=== PATIENT | male | born 1945 | race Caucasian/White ===

== ENCOUNTER 2016-08-26 18:50 | Emergency (ER) | payer MEDICARE, BC ==
--- NOTE | 2016-08-26 19:31 | EDM.PDOC ---
ED HPI GENERAL MEDICAL PROBLEM - General Time Seen by Provider: 08/26/16 19:15 Source of Information: Reports: Patient History Limitations: Reports: No limitations - History of Present Illness INITIAL COMMENTS - FREE TEXT/NARRATIVE: Pt claims that he has been having headache since today morning. Headache is all over the abdomen, has not got better. Tried some tylenol and tramadol. Mild nausea. also he claims he has been having midback pain since today morning. pain is dull achy type. According to patient he has cystoscopy done last and was started on flomax. Pt claims that he has some discomfort in the penile urethra which is better then the day of procedure.No dysuria or difficulty with urination. No fever or chills. No vomiting. - Related Data Allergies Allergy/AdvReac Type Severity Reaction Status Date / Time nifedipine [From Procardia] AdvReac Mild Constipatio Verified 07/20/16 22:08 n Home Meds: Home Meds [place]-3/DHA/Epa/Fish Oil [Fish Oil Dr 500 mg Softgel] 1,000 mg PO DAILY [History] Aspirin 81 mg PO DAILY 05/26/15 [History] Insulin Aspart [Novolog Flexpen] 6 unit SQ ASDIRECTED 05/26/15 [History] Insulin Detemir [Levemir Flextouch] 25 unit SQ BID 05/26/15 [History] Omeprazole 40 mg PO ACBREAKFAST 05/26/15 [History] atorvaSTATin [Lipitor] 20 mg PO BEDTIME 05/26/15 [History] metFORMIN HCl [Metformin HCl] 1,000 mg PO BIDAC 10/12/15 [History] Cyclobenzaprine [Flexeril] 10 mg PO TID PRN 12/13/15 [History] Polyethylene Glycol 3350 [MiraLAX] 17 gm PO DAILY 12/13/15 [History] oxyCODONE HCl/Acetaminophen [oxyCODONE-Acetaminophen 5-325] 7.5 mg PO ASDIRECTED PRN 12/30/15 [History] Metoclopramide HCl 10 mg PO DAILY 02/23/16 [History] Metoprolol Succinate [Toprol XL] 25 mg PO DAILY 05/25/16 [History] Tamsulosin [Tamsulosin 24 Hr] 2 cap PO DAILY 07/20/16 [History] Past Medical History - Past Health History Medical/Surgical History: Denies Medical/Surgical History HEENT History: Reports: Cataract Cardiovascular History: Reports: High cholesterol, Hypertension Other Cardiovascular History: Ablation in July, Respiratory History: Reports: PE, Pneumonia, recurrent, Sleep apnea Other Respiratory History: wears a cpap at night with oxygen at 5 LPM/[place] Gastrointestinal History: Reports: Bowel obstruction, Chronic constipation, GERD , Other (see below) Other Gastrointestinal History: duodenal ulcer Genitourinary History: Reports: Renal calculus Musculoskeletal History: Reports: Back pain, chronic Other Musculoskeletal History: Neck pain causing migraines Neurological History: Reports: Migraines Other Neuro History: Patient is scheduled to have a vertebrae in neck fused very soon. Surgeon, hopes this will resolve some or all of headaches. Psychiatric History: Reports: Depression, Emotional problems Endocrine/Metabolic History: Reports: Diabetes, type II, Obesity/BMI 30+ Hematologic History: Reports: B12 deficiency, Blood transfusion(s) Oncologic (Cancer) History: Reports: None Dermatologic History: Reports: Other (see below) Other Dermatologic History: Had pre-cancer lesion removed to R arm. Has lesion to L wrist. - Infectious Disease History Infectious Disease History: Reports: Chicken pox, Measles, Mumps, Rubella - Past Surgical History HEENT Surgical History: Reports: Tonsillectomy Other HEENT Surgeries/Procedures: C3 and C4 fusion- 2014 Cardiovascular Surgical History: Reports: Cardiac Ablation Other GI Surgeries/Procedures: Exploratory laparotomy. Male Surgical History: Reports: Kidney stone extraction, Lithotripsy ([facility]) Neurological Surgical History: Reports: C-Spine Musculoskeletal Surgical History: Reports: Knee replacement Other Musculoskeletal Surgeries/Procedures:: neck surgery C3 and C4 on [id number] Social & Family History - Family History Family Medical History: Noncontributory HEENT: Reports: Cataract Cardiac: Reports: NM Respiratory: Reports: COPD GI: Reports: None : Reports: None Endocrine/Metabolic: Reports: Diabetes, type II Oncologic: Reports: Brain, Colon, Lung - Tobacco Use Smoking Status *Q: Never Smoker Used Tobacco, but Quit: No Second Hand Smoke Exposure: No - Caffeine Use Caffeine Use: Reports: Soda - Alcohol Use Days Per Week of Alcohol Use: 0 - Recreational Drug Use Recreational Drug Use: No - Living Situation & Occupation Living situation: Reports: Occupation: unemployed ED ROS GENERAL - Review of Systems Review Of Systems: See Below Constitutional: Denies: fever, chills, night sweats, diaphoresis HEENT: Denies: Rhinitis, Sinus problem, Throat pain, Throat swelling Respiratory: Denies: Shortness of Breath, Wheezing, Sputum Cardiovascular: Denies: Chest pain, Lightheadedness GI/Abdominal: Reports: Constipation, Nausea. Denies: Abdominal pain, Diarrhea, Vomiting : Reports: flank pain, frequency. Denies: dysuria Musculoskeletal: Denies: joint pain, joint swelling Skin: Denies: jaundice, pruritis, rash Neurological: Denies: Confusion, Dizziness ED EXAM, GENERAL - Physical Exam Exam: See Below Exam Limited By: No limitations General Appearance: alert, WD/WN, no apparent distress Eye Exam: bilateral eye: EOMI, PERRL Ears: normal external exam, normal canal, hearing grossly normal, normal TMs Ear Exam: bilateral ear: auricle normal, canal normal, TM normal Nose: normal inspection, normal mucosa, no blood Throat/Mouth: Normal inspection, Normal lips, Normal teeth, Normal gums, Normal oropharynx, Normal voice, No airway compromise Head: atraumatic, normocephalic Neck: normal inspection, supple, non-tender, full range of motion Respiratory/Chest: no respiratory distress, lungs clear, normal breath sounds, no accessory muscle use, chest non-tender Cardiovascular: normal peripheral pulses, regular rate, rhythm, no edema, no gallop, no JVD, no murmur, no rub GI/Abdominal: normal bowel sounds, soft, non tender, no organomegaly, no distention, no abnormal bruit, no mass Back Exam: normal inspection, full range of motion. No: CVA tenderness (R), CVA tenderness (L) Extremities: normal inspection, normal range of motion, non-tender, normal capillary refill, no pedal edema Neurological: alert, oriented, CN II-XII intact, normal cognition, normal gait, normal reflexes, no motor/sensory deficits Course - Vital Signs Text/Narrative:: Pt's clinical exam appears normal. he does get recurrent headache and has been having one of those episodes since today morning. he did receive toradol 30mg IM. His CBC is normal and his UA appears normal other than elevated specific gravity. He does not have UTI , but he has been running fever, hence I have empirically started him on cipro 500mg twice daily for next 5 days. advised plenty of fluids daily. return to emergency room if symptoms worsen, other forman followup in clinic with his primary care provider this week. - Orders/Labs/Meds Orders: Active Orders 24 hr Category Date Time Status Ketorolac [Toradol] Med 08/26/16 19:56 Once 30 mg IM ONETIME ONE Labs: Laboratory Tests 08/26/16 08/26/16 Range/Units 19:25 19:25 WBC 10.7 D (4.0-11.0) K/uL RBC 5.21 (4.50-6.50) M/uL Hgb 15.0 (13.0-18.0) g/dL Hct 43.2 (40.0-54.0) % MCV 83 (76-96) fL MCH 28.8 (27.0-32.0) pg MCHC 34.7 (31.0-35.0) g/dL RDW 13.5 (11.0-16.0) % Plt Count 135 L (150-400) K/uL MPV 10.9 H (6.0-10.0) fL Neut % (Auto) 85.9 H (45.0-70.0) % Lymph % (Auto) 7.0 L (20.0-40.0) % [place] % (Auto) 6.1 (3.0-10.0) % Eos % (Auto) 0.8 L (1.0-5.0) % Baso % (Auto) 0.2 (0.0-0.5) % Neut # (Auto) 9.22 H (2.00-7.50) K/uL Lymph # (Auto) 0.75 L (1.50-4.00) K/uL [place] # (Auto) 0.65 (0.20-0.80) K/uL Eos # (Auto) 0.09 (0.04-0.40) K/uL Baso # (Auto) 0.02 (0.02-0.10) K/uL Urine Color Yellow Urine Appearance Clear (CLEAR) Urine pH 5.0 (5.0-8.0) Ur Specific [place] >= 1.030 (1.003-1.030) Urine Protein Trace H (NEGATIVE) mg/dL Urine Glucose (UA) Negative (NEGATIVE) mg/dL Urine Ketones Negative (NEGATIVE) mg/dL Urine Occult Blood Negative (NEGATIVE) Urine Nitrite Negative (NEGATIVE) Urine Bilirubin Negative (NEGATIVE) Urine Urobilinogen 0.2 (0.2-1.0) E.U./dL Ur Leukocyte Esterase Negative (NEGATIVE) Urine RBC Not seen /HPF Urine WBC 0-5 H /HPF Ur Squamous Epith Cells Few /HPF Urine Mucus Few /HPF Departure - Departure Time of Disposition: 20:00 Disposition: Home, Self-Care 01 Clinical Impression: Headache, Back pain - Problem List & Annotations (1) Back pain SNOMED Code(s): 227412722 Code(s): M54.9 - DORSALGIA, UNSPECIFIED Status: Acute Current Visit: Yes (2) Headache SNOMED Code(s): 64263932 Code(s): R51 - HEADACHE Status: Acute Current Visit: Yes - Problem List Review Problem List Initiated/Reviewed/Updated: Yes - My Orders Last 24 Hours: My Active Orders 08/26/16 19:56 Ketorolac [Toradol] 30 mg IM ONETIME ONE - Assessment/Plan Last 24 Hours: My Active Orders 08/26/16 19:56 Ketorolac [Toradol] 30 mg IM ONETIME ONE Assessment:: headache Nonspecific back pain Plan: Pt's clinical exam appears normal. he does get recurrent headache and has been having one of those episodes since today morning. he did receive toradol 30mg IM. His CBC is normal and his UA appears normal other than elevated specific gravity. He does not have UTI , but he has been running fever, hence I have empirically started him on cipro 500mg twice daily for next 5 days. advised plenty of fluids daily. return to emergency room if symptoms worsen, other forman followup in clinic with his primary care provider this week.
[2016-08-26] MEDS ORDERED: Ciprofloxacin 250 MG Tab ONE (19:35)
[2016-08-26] MEDS ORDERED: Ketorolac 30 MG/ML SDV IM ONE (19:56)
[2016-08-26] MEDS ORDERED: Ketorolac 30 MG/ML SDV ONE (19:57)
[2016-08-26 20:14] VITALS: BP 162/68
== END 2016-08-26 20:00 | disposition home or self-care (01) ==
LOC: LB.ED 18:50
DX: R51 Headache (principal); M54.9 Dorsalgia, unspecified; E78.00 Pure hypercholesterolemia, unspecified; I10 Essential (primary) hypertension; K21.9 Gastro-esophageal reflux disease without esophagitis; F32.9 Major depressive disorder, single episode, unspecified; E11.9 Type 2 diabetes mellitus without complications; E66.9 Obesity, unspecified; Z87.01 Personal history of pneumonia (recurrent); Z79.899 Other long term (current) drug therapy; Z98.890 Other specified postprocedural states; Z79.82 Long term (current) use of aspirin; Z79.4 Long term (current) use of insulin; Z79.84 Long term (current) use of oral hypoglycemic drugs; Z88.8 Allergy status to other drugs, medicaments and biological substances
CPT/HCPCS: 36415; 81001; 85025; 96372; 99283; 99284; A9270; J1885

== ENCOUNTER 2016-10-02 13:21 | Emergency (ER) | payer MEDICARE, BC ==
[2016-10-02] MEDS ORDERED: Phenazopyridine 100 MG Tab ONE (14:00)
[2016-10-02 14:26] VITALS: BP 173/90
--- NOTE | 2016-10-03 07:29 | ER ---
Patient presented to the emergency room this afternoon with complaints of frequent urination of small amounts of urine. He is status post prostate lift 1 day ago. He denies any fever, any nausea or vomiting or back pain. He does have some occasional blood in his urine and some mild dysuria at times. His urologist called in Cipro, which he has just started prior to arrival in the emergency room. A bladder scan showed no significant postvoid residual present. He is having frequent urination, 30 to 50 mL of urine, that is the clear yellow. No obvious clot. UA was sent off for evaluation, shows no signs of infections, just red cells. No crystals. REVIEW OF SYSTEMS: The patient denies fever or weight loss. No vision changes. No history of glaucoma. No congestion, sore throat, or ear pain. No chest pain or palpitations. No coughing or wheezing or shortness of breath. No nausea, vomiting, diarrhea, constipation, heartburn, or rectal bleeding. No musculoskeletal joint pain or limited motion. No skin rashes. No focal neurologic complaints. No depression. PHYSICAL EXAMINATION: GENERAL: A well-developed, well-nourished male, alert and oriented x3, in no acute distress except for frequent urination. VITAL SIGNS: Blood pressure upon admission 173/90, pulse is 91 and regular, temperature is 98.5, respirations 20, 98% saturated on room air. EYES: Show EOMI, normal conjunctivae and lids. ENT: Nose is clear. Throat is clear. NECK: Symmetrical. No bruits, no thyromegaly. LYMPH: Negative. LUNGS: Clear. HEART: Regular rate and rhythm. No murmurs, rubs, or gallops. No S3, no S4. ABDOMEN: Soft, nontender, not distended. No hernia. No organomegaly. BACK: Shows no CVA or cord tenderness. SKIN: Shows no rashes or sores. NEUROLOGIC: Cranial nerves II through XII intact. No focal deficits noted. PSYCH: Normal judgment and insight. ASSESSMENT: Bladder spasms, status post prostate surgery. PLAN: The patient will continue with his Cipro. In the emergency room, Pyridium was given for comfort. The patient had taken Flexeril earlier today which may help with some muscle relaxing of his bladder. I prescribed him Levsin 0.125 sublingual q.4 p.r.n. #10, and if he does not get complete relief with this, he can try Sudafed and Benadryl [id number] short-acting, so he does not get a prolonged urinary retention. If he develops any fever, vomiting, pain or no relief of symptoms, he is to return to clinic. The patient is going to get a hold of his urologist in the morning and hopefully can be seen by his urologist this week. He does have an appointment with the urologist already established in 6 days. MICHAEL /[phone]
== END 2016-10-02 14:58 | disposition home or self-care (01) ==
LOC: LB.ED 13:21
DX: N32.89 Other specified disorders of bladder (principal)
CPT/HCPCS: 81001; 87086; A9270; 99283

== ENCOUNTER 2016-10-09 21:33 | Emergency (ER) | payer MEDICARE, BC ==
[2016-10-09] MEDS ORDERED: Ketorolac 60 MG/2 ML SDV IM ONE (22:05)
--- NOTE | 2016-10-10 01:20 | ER ---
CHIEF COMPLAINT: The patient presents to the ER [facility] for a chief complaint of left-sided headache. HISTORY OF PRESENT ILLNESS: The patient is having left-sided headache all day today, it has gotten worse over the past hour, so he decided to come to the ER. He frequently visits the ER or clinic for chronic headaches. He had recently been seen in [place], where he got hydrocodone for his headache. He sees Dr. Dumas who prescribes oxycodone up to 90 morphine equivalents a day for his headaches, and for acute exacerbations, he gets Toradol 60 mg IM. The patient states that his headaches have improved overall. He used to get daily headaches, now he states he gets headaches about every 2 weeks. He attributes this improvement to a cervical spine fusion that he had. Other concerns were the patient has adult-onset diabetes, hypertension, mild renal insufficiency, and heart disease. REVIEW OF SYSTEMS: CONSTITUTIONAL: The patient denies any fever, fatigue, or change in weight. EYES: Denies any vision changes. ENT: Denies sore throat, ear pain, or nasal congestion. CARDIOVASCULAR: Denies chest pain or palpitations. RESPIRATORY: Denies cough or shortness of breath. GI: Denies nausea, vomiting, diarrhea, constipation, or heartburn. : No complaints of dysuria. MUSCULOSKELETAL: No acutely inflamed joints or limited motion. SKIN: No rashes. NEURO: No focal weakness. PSYCH: He states he is not depressed. PHYSICAL EXAMINATION: GENERAL: A well-developed, well-nourished, overweight male, lying on a gurney with a towel over his head. He does not appear to be in any acute distress. VITAL SIGNS: As listed by nurse. He is afebrile and vital signs are normal. Blood sugars at home prior to arrival he states were 228. EYES: Normal conjunctivae and lids. EOMI. ENT: Nose is clear. Throat is clear. TMs are normal. NECK: Supple. No thyromegaly. No bruits. LYMPH: Exam is negative. LUNGS: Clear. HEART: Regular rate and rhythm. No murmurs, rubs, or gallops. ABDOMEN: Soft, nontender. No mass or organomegaly. EXTREMITIES: No clubbing or cyanosis or edema. SKIN: No rashes. NEURO: Cranial nerves 2 through 12 intact. No deficits. PSYCH: Normal. The patient is alert and oriented x3. Memory is intact. Mood is appropriate. Judgment is fair. ASSESSMENT: The patient with chronic headaches, on chronic high-dose narcotics. He has been going to multiple providers for his headaches including ER in [place]. PLAN: The patient, I feel, should be titrated down or off his narcotics. Part of his headaches could be related to opioid withdrawal. He might do better on a patch that can be titrated down overtime. I am uncomfortable with him being on over 50 morphine equivalents per day of narcotics, and I encouraged the patient to follow up with myself or his current physician to start the tapering process. Because he is diabetic with some mild renal insufficiency, I am concerned about chronic overuse of Toradol. I did give him Toradol 15 mg IM today, he states with relief. I did offer him IV Raglan instead for his headaches, but he refused. MICHAEL /[id number]
== END 2016-10-09 22:20 | disposition home or self-care (01) ==
LOC: LB.ED 21:33
DX: R51 Headache (principal); E11.9 Type 2 diabetes mellitus without complications; I12.9 Hypertensive chronic kidney disease with stage 1 through stage 4 chronic kidney disease, or unspecified chronic kidney disease; Z79.899 Other long term (current) drug therapy
CPT/HCPCS: 96372; 99283; J1885

== ENCOUNTER 2016-10-26 19:57 | Emergency (ER) | payer MEDICARE, BC ==
[2016-10-26] MEDS ORDERED: Diatrizoate Meglumine/Diatrizoate Sodium 37% 30 ML Bottle PO PRN (20:15)
[2016-10-26 20:52] VITALS: BP 181/84
--- NOTE | 2016-10-26 23:43 | EDM.PDOC ---
ED HPI GENERAL MEDICAL PROBLEM - General Chief Complaint: General Stated Complaint: abdominal pain Time Seen by Provider: 10/26/16 20:50 Source of Information: Reports: Patient - History of Present Illness INITIAL COMMENTS - FREE TEXT/NARRATIVE: This is a 71yo M here for complaints of abdominal discomfort that has continued since his last clinic visit a day ago. He state the pain is in the left lower quadrant and an achy pain that is constant. Patient denies any recent travel or bad food. He states he has been having bouts of loose stools then abdominal discomfort and sometimes constipation. He denies any melena or hematochezia. Patient states the pain started a day or two ago and is persisting. Duration: Day(s):, Constant Location: Reports: Abdomen Severity: Moderate Improves with: Reports: None Worsens with: Reports: None Associated Symptoms: Reports: No Other Symptoms Left Lower Abdomen Pain Score (Numeric/FACES): 7 - Related Data Allergies Allergy/AdvReac Type Severity Reaction Status Date / Time coffee (Coffea arabica) Allergy Headache Verified 10/26/16 21:14 nifedipine [From Procardia] AdvReac Mild Constipatio Verified 10/26/16 21:13 n Home Meds: Home Meds [place]-3/DHA/Epa/Fish Oil [Fish Oil Dr 500 mg Softgel] 1,000 mg PO DAILY [History] Aspirin 81 mg PO DAILY 05/26/15 [History] Insulin Aspart [Novolog Flexpen] 3.39 unit SQ ASDIRECTED 05/26/15 [History] Omeprazole 40 mg PO ACBREAKFAST 05/26/15 [History] atorvaSTATin [Lipitor] 20 mg PO BEDTIME 05/26/15 [History] Cyclobenzaprine [Flexeril] 10 mg PO TID PRN 12/13/15 [History] Polyethylene Glycol 3350 [MiraLAX] 17 gm PO DAILY 12/13/15 [History] oxyCODONE HCl/Acetaminophen [oxyCODONE-Acetaminophen 5-325] 7.5 mg PO ASDIRECTED PRN 12/30/15 [History] Metoprolol Succinate [Toprol XL] 25 mg PO DAILY 05/25/16 [History] Past Medical History - Past Health History Medical/Surgical History: Denies Medical/Surgical History HEENT History: Reports: Cataract Cardiovascular History: Reports: High Cholesterol, Hypertension Other Cardiovascular History: Ablation in July, Respiratory History: Reports: PE, Pneumonia, Recurrent, Sleep Apnea Other Respiratory History: wears a cpap at night with oxygen at 5 LPM/[place] Gastrointestinal History: Reports: Bowel Obstruction, Chronic Constipation, GERD , Other (See Below) Other Gastrointestinal History: duodenal ulcer Genitourinary History: Reports: Renal Calculus, Other (See Below) Other Genitourinary History: prostate stent placed 10/01/2016 Musculoskeletal History: Reports: Back Pain, Chronic Other Musculoskeletal History: Neck pain causing migraines Neurological History: Reports: Migraines Other Neuro History: Patient had vertebrae in neck fused very soon. Resolved some or of headaches. Psychiatric History: Reports: Depression, Emotional Problems Endocrine/Metabolic History: Reports: Diabetes, Type II, Obesity/BMI 30+ Hematologic History: Reports: B12 Deficiency, Blood Transfusion(s) Oncologic (Cancer) History: Reports: None Dermatologic History: Reports: Other (See Below) Other Dermatologic History: Had pre-cancer lesion removed to R arm. Has lesion to L wrist. - Infectious Disease History Infectious Disease History: Reports: Chicken Pox, Measles, Mumps - Past Surgical History GI Surgical History: Reports: Colonoscopy, Hernia, Inguinal, Other (See Below) Male Surgical History: Reports: Kidney Stone Extraction, Lithotripsy (ESWL) Musculoskeletal Surgical History: Reports: Knee Replacement Social & Family History - Family History Family Medical History: Noncontributory HEENT: Reports: Cataract Cardiac: Reports: [place] Respiratory: Reports: COPD GI: Reports: None : Reports: None Endocrine/Metabolic: Reports: Diabetes, type II Oncologic: Reports: Brain, Colon, Lung - Tobacco Use Smoking Status *Q: Never Smoker Used Tobacco, but Quit: No Second Hand Smoke Exposure: No - Caffeine Use Caffeine Use: Reports: Soda - Alcohol Use Days Per Week of Alcohol Use: 0 - Recreational Drug Use Recreational Drug Use: No - Living Situation & Occupation Living situation: Reports: Occupation: Unemployed ED ROS GENERAL - Review of Systems Review Of Systems: ROS reveals no pertinent complaints other than HPI. ED EXAM, GENERAL - Physical Exam Exam: See Below Exam Limited By: No Limitations General Appearance: Alert, WD/WN, Mild Distress, Obese Eye Exam: Bilateral Eye: EOMI Ears: Normal External Exam Nose: Normal Inspection Throat/Mouth: Normal Inspection Head: Atraumatic, Normocephalic Neck: Normal Inspection Respiratory/Chest: No Respiratory Distress, Lungs Clear Cardiovascular: Normal Peripheral Pulses, Regular Rate, Rhythm Peripheral Pulses: 2+: Dorsalis Pedis (L), Dorsalis Pedis (R) GI/Abdominal: Normal Bowel Sounds, Distended Back Exam: Normal Inspection Extremities: Normal Inspection, Normal Range of Motion Neurological: Alert, Oriented Psychiatric: Normal Affect, Normal Mood Skin Exam: Warm, Dry, Intact Course - Vital Signs Last Recorded V/S: Last Vital Signs Temp 36.5 C 10/26/16 20:50 Pulse 83 10/26/16 20:50 Resp 20 10/26/16 20:50 BP 181/84 H 10/26/16 20:50 Pulse Ox 98 10/26/16 20:50 - Orders/Labs/Meds Orders: Active Orders 24 hr Category Date Time Status Abdomen Pelvis wo Cont [CT] Stat Exams 10/26/16 20:01 Taken Labs: Laboratory Tests 10/26/16 10/26/16 10/26/16 Range/Units 21:00 21:00 21:00 WBC 9.6 (4.0-11.0) K/uL RBC 5.14 (4.50-6.50) M/uL Hgb 14.8 (13.0-18.0) g/dL Hct 42.7 (40.0-54.0) % MCV 83 (76-96) fL MCH 28.8 (27.0-32.0) pg MCHC 34.7 (31.0-35.0) g/dL RDW 13.6 (11.0-16.0) % Plt Count 170 (150-400) K/uL MPV 11.6 H (6.0-10.0) fL Neut % (Auto) 61.0 (45.0-70.0) % Lymph % (Auto) 27.8 (20.0-40.0) % Sal[place] % (Auto) 9.1 (3.0-10.0) % Eos % (Auto) 1.6 (1.0-5.0) % Baso % (Auto) 0.5 (0.0-0.5) % Neut # (Auto) 5.84 (2.00-7.50) K/uL Lymph # (Auto) 2.66 (1.50-4.00) K/uL Saline # (Auto) 0.87 H (0.20-0.80) K/uL Eos # (Auto) 0.15 (0.04-0.40) K/uL Baso # (Auto) 0.05 (0.02-0.10) K/uL Sodium 135 L (136-145) mmol/L Potassium 4.3 (3.5-5.1) mmol/L Chloride 99 (98-107) mmol/L Carbon Dioxide 28.2 (21.0-32.0) mmol/L Anion Gap 12.1 (5.0-15.0) mmol/L BUN 20 (8-26) mg/dL Creatinine 1.47 H (0.70-1.30) mg/dL Est Cr Clr Drug Dosing 52.06 mL/min Estimated GFR (MDRD) 47 L (>60) MLS/MIN BUN/Creatinine Ratio 13.6 (6-25) Glucose 229 H D (74-100) mg/dL Calcium 9.3 (8.5-10.1) mg/dL Total Bilirubin 0.6 (0.0-1.0) mg/dL AST 21 (15-37) U/L ALT 36 (12-78) U/L Alkaline Phosphatase 110 (46-116) U/L Total Protein 7.4 (6.4-8.2) g/dL Albumin 3.7 (3.4-5.0) g/dL Globulin 3.7 (2.2-4.2) g/dL Albumin/Globulin Ratio 1.0 (0.8-2.0) Lipase 180 (73-393) U/L Meds: Medications Discontinued Medications Generic Name Dose Route Start Last Admin Trade Name Freq PRN Reason Stop Dose Admin Diatrizoate Meglum/Diatrizoate Sod 30 ml 10/26/16 20:15 Gastrografin 37% PO 10/26/16 20:16 . DIRECTED PRN RADIOLOGY EXAM - Radiology Interpretation Free Text/Narrative:: Counseled patient on negative CT findings and negative lab findings. Departure - Departure Time of Disposition: 22:50 Disposition: Home, Self-Care 01 Condition: good Clinical Impression: Abdominal gas pain - Discharge Information Forms: ED Department Discharge Additional Instructions: Take Miralax as needed. If you continue to have pain or discomfort in the next few days return to the clinic or ER. Make a follow up appointment in the clinic on Saturday. if you have any questions or concerns please call us at . - Problem List & Annotations (1) Abdominal pain SNOMED Code(s): 00432259 Code(s): R10.9 - UNSPECIFIED ABDOMINAL PAIN Status: Acute Priority: High Onset Date: ~12/09/15 Annotation/Comment:: pt states pain is less this AM, had two bowel movement last night and this AM, abdomen is soft with normal bowel sounds Qualifiers: Abdominal location: generalized Qualified Code(s): R10.84 - Generalized abdominal pain (2) Abdominal gas pain SNOMED Code(s): 54334792 Code(s): R14.1 - GAS PAIN Status: Acute - Problem List Review Problem List Initiated/Reviewed/Updated: Yes - My Orders Last 24 Hours: My Active Orders 10/26/16 20:01 Abdomen Pelvis wo Cont [CT] Stat - Assessment/Plan Last 24 Hours: My Active Orders 10/26/16 20:01 Abdomen Pelvis wo Cont [CT] Stat Plan: Counseled patient on continued close monitoring of symptoms and pain level. Discussed BM and decreased food intake and increased fluids. Discussed use of miralax and close f/u in clinic this next week or return to ER if symptoms worsen or new symptoms arise. Patient agrees on close monitoring and f/u in ER or clinic.
--- NOTE | 2016-10-28 18:38 | CT ---
DATE OF SERVICE: 10/26/2016 CLINICAL DATA: Abdominal pain. UNENHANCED ABDOMEN AND PELVIC CT Multislice acquisition through the abdomen and pelvis without IV, but with oral contrast was performed. There are minimal atelectatic changes of the left and right lung bases. The lung bases are otherwise clear. The unenhanced liver appears normal. No focal hepatic lesions. The gallbladder is contracted and appears grossly normal. The spleen appears normal. The pancreas appears normal. The right and left adrenals appear normal. The right and left kidneys appear normal. No nephrocalcinosis or nephrolithiasis. No hydronephrosis or hydroureter. The bladder is partially fluid filled. There is mild diffuse bladder wall thickening. This is probably related to nondistention. Cystitis should at least be considered. There are multiple metallic implants within the prostate. The appendix is not seen. No evidence of appendicitis. There is a moderate amount of stool present in the ascending and transverse colon. There is mild diverticulosis of the descending and sigmoid colon. No evidence of diverticulitis. There is a small umbilical hernia containing fat. No free air. No free fluid. No dilated loops of bowel. No adenopathy. No aortic aneurysm. No other significant findings. IMPRESSION: No acute abnormalities. [id number] MTDD
== END 2016-10-26 22:00 | disposition home or self-care (01) ==
LOC: LB.ED 19:57
DX: R14.1 Gas pain (principal); E78.00 Pure hypercholesterolemia, unspecified; I10 Essential (primary) hypertension; K21.9 Gastro-esophageal reflux disease without esophagitis; G43.909 Migraine, unspecified, not intractable, without status migrainosus; E11.9 Type 2 diabetes mellitus without complications; E66.9 Obesity, unspecified; Z98.890 Other specified postprocedural states; Z88.8 Allergy status to other drugs, medicaments and biological substances; Z91.09 Other allergy status, other than to drugs and biological substances; Z79.82 Long term (current) use of aspirin; Z79.899 Other long term (current) drug therapy
CPT/HCPCS: 36415; 74176; 80053; 83690; 85025; 99283; 99284-25

== ENCOUNTER 2016-11-20 18:52 | Emergency (ER) | payer MEDICARE, BC ==
[2016-11-20] MEDS ORDERED: Ketorolac 30 MG/ML SDV ONE (19:31)
[2016-11-21 02:02] VITALS: BP 140/68
--- NOTE | 2016-11-22 10:45 | ER ---
CHIEF COMPLAINT: History was taken from the patient. The patient presents to the ER with a chief complaint of headache. HISTORY OF PRESENT ILLNESS: The patient has a long history of headaches relieved with low- dose Toradol. Recently, he has had titrations in his blood sugar and his blood pressure medicine. His blood pressure medicine has been responding nicely. He is just about at target. His blood sugars have been running slightly elevated in the 170 to 225 range. REVIEW OF SYSTEMS: CONSTITUTIONAL: The patient denies any fever, chills. EYES: No vision changes. ENT: No congestion, sore throat, or ear pain. CARDIOVASCULAR: No chest pain or palpitations. RESPIRATORY: No cough or shortness of breath or wheezing. GI: No nausea, vomiting, diarrhea, constipation, or heartburn. : No dysuria. MUSCULOSKELETAL: No limitations in motion. No acute joint swelling or pain. SKIN: No rashes. NEURO: No focal deficits. PSYCH: No depression or anxiety. PHYSICAL EXAMINATION: GENERAL: Reveals a well-developed, well-nourished, overweight male. He is alert and oriented x3, in no acute distress. VITAL SIGNS: Blood pressure 140/68, respirations 18, temperature 97.0, 97% saturated on room air. EYES: Show EOMI, PERRLA. ENT: Nose is clear. Throat is clear. TMs are normal. NECK: Supple. No mass, no adenopathy, no thyromegaly. LYMPH: Exam is negative. LUNGS: Clear. HEART: With a regular rate and rhythm with no murmurs, rubs, or gallops. ABDOMEN: Soft, nontender. No mass. No organomegaly. BACK: Shows no CVA or cord tenderness. EXTREMITIES: Show no clubbing, cyanosis, or significant edema. NEUROLOGIC: Cranial nerves 2 through 12 are intact. No focal motor, sensory, or cerebellar deficits. PSYCHIATRIC: Normal. MUSCULOSKELETAL: Normal. ASSESSMENT: Acute headache. PLAN: The patient will be given low-dose Toradol IM in the emergency room and will be sent home. If he has any changes in his condition, he knows to return to the emergency room. MICHAEL /[id number]
== END 2016-11-20 19:40 | disposition home or self-care (01) ==
LOC: LB.ED 18:52
DX: R51 Headache (principal); Z79.899 Other long term (current) drug therapy; R73.9 Hyperglycemia, unspecified; I10 Essential (primary) hypertension
CPT/HCPCS: 82962; 96372; 99283; J1885; 99282

== ENCOUNTER 2017-04-04 16:39 | Inpatient (IN) | payer MEDICARE, BC ==
--- NOTE | 2017-04-04 16:55 | EDM.PDOC ---
ED HPI GENERAL MEDICAL PROBLEM - General Chief Complaint: Respiratory Problem Stated Complaint: SOB Time Seen by Provider: 04/04/17 16:45 Source of Information: Reports: Patient, RN, Significant Other History Limitations: Reports: No Limitations - History of Present Illness INITIAL COMMENTS - FREE TEXT/NARRATIVE: 71 yr male presents with shortness of breath, light headed and some chest pain to left side of chest. States this started with carrying in the groceries today , state he about passed out. He has had a recent stress test and does have a pacemaker. Onset: Today Onset Date: 04/04/17 Onset Time: 16:30 Location: Reports: Chest Associated Symptoms: Reports: Chest Pain - Related Data Allergies Allergy/AdvReac Type Severity Reaction Status Date / Time coffee (Coffea arabica) Allergy Headache Verified 03/29/17 15:19 nifedipine [From Procardia] AdvReac Mild Constipatio Verified 03/29/17 15:19 n Home Meds: Home Meds [place]-3/DHA/Epa/Fish Oil [Fish Oil Dr 500 mg Softgel] 1,000 mg PO DAILY [History] Aspirin 81 mg PO DAILY 05/26/15 [History] Insulin Aspart [Novolog Flexpen] 100 unit SQ ASDIRECTED 05/26/15 [History] Omeprazole 40 mg PO ACBREAKFAST 05/26/15 [History] atorvaSTATin [Lipitor] 20 mg PO BEDTIME 05/26/15 [History] Cyclobenzaprine [Flexeril] 10 mg PO TID PRN 12/13/15 [History] Polyethylene Glycol 3350 [MiraLAX] 17 gm PO DAILY 12/13/15 [History] oxyCODONE HCl/Acetaminophen [oxyCODONE-Acetaminophen 5-325] 7.5 - 325 mg PO ASDIRECTED PRN 12/30/15 [History] Metoprolol Succinate [Toprol XL] 25 mg PO DAILY 05/25/16 [History] Furosemide [Furosemide] 40 mg PO DAILY 03/29/17 [History] Furosemide [Lasix] 60 mg PO DAILY 03/29/17 [History] Metoclopramide HCl [Reglan] 10 mg PO QID 03/29/17 [History] Tamsulosin HCl 0.8 mg PO DAILY 03/29/17 [History] Triamcinolone Acetonide [Triamcinolone Acetonide 0.5% Oint] 1 applic TOP ASDIRECTED 03/29/17 [History] Past Medical History - Past Health History Medical/Surgical History: Denies Medical/Surgical History HEENT History: Reports: Cataract Cardiovascular History: Reports: High Cholesterol, Hypertension Other Cardiovascular History: Ablation in July, Respiratory History: Reports: PE, Pneumonia, Recurrent, Sleep Apnea Other Respiratory History: wears a cpap at night with oxygen at 5 LPM/NC Gastrointestinal History: Reports: Bowel Obstruction, Chronic Constipation, GERD , Other (See Below) Other Gastrointestinal History: duodenal ulcer Genitourinary History: Reports: Renal Calculus, Other (See Below) Other Genitourinary History: prostate stent placed 10/01/2016 Musculoskeletal History: Reports: Back Pain, Chronic Other Musculoskeletal History: Neck pain causing migraines Neurological History: Reports: Migraines Other Neuro History: Patient had vertebrae in neck fused very soon. Resolved some or of headaches. Psychiatric History: Reports: Depression, Emotional Problems Endocrine/Metabolic History: Reports: Diabetes, Type II, Obesity/BMI 30+ Hematologic History: Reports: B12 Deficiency, Blood Transfusion(s) Oncologic (Cancer) History: Reports: None Dermatologic History: Reports: Other (See Below) Other Dermatologic History: Had pre-cancer lesion removed to R arm. Has lesion to L wrist. - Infectious Disease History Infectious Disease History: Reports: Chicken Pox, Measles, Mumps - Past Surgical History GI Surgical History: Reports: Colonoscopy, Hernia, Inguinal, Other (See Below) Male Surgical History: Reports: Kidney Stone Extraction, Lithotripsy ([facility]) Musculoskeletal Surgical History: Reports: Knee Replacement Social & Family History - Family History Family Medical History: Noncontributory HEENT: Reports: Cataract Cardiac: Reports: MD Respiratory: Reports: COPD GI: Reports: None : Reports: None Endocrine/Metabolic: Reports: Diabetes, type II Oncologic: Reports: Brain, Colon, Lung - Tobacco Use Smoking Status *Q: Former Smoker Years of Tobacco use: 18 Used Tobacco, but Quit: Yes Month Tobacco Last Used: Jun Second Hand Smoke Exposure: No - Caffeine Use Caffeine Use: Reports: Soda - Alcohol Use Days Per Week of Alcohol Use: 0 - Recreational Drug Use Recreational Drug Use: No - Living Situation & Occupation Living situation: Reports: Occupation: Unemployed ED ROS GENERAL - Review of Systems Review Of Systems: See Below Constitutional: Reports: Weakness. Denies: Fever, Chills HEENT: Reports: No Symptoms Respiratory: Reports: Shortness of Breath. Denies: Cough Cardiovascular: Reports: Chest Pain, Edema, Lightheadedness GI/Abdominal: Reports: No Symptoms Musculoskeletal: Reports: Neck Pain, Other (head pain) Skin: Reports: No Symptoms ED EXAM, GENERAL - Physical Exam Exam: See Below Exam Limited By: No Limitations General Appearance: Alert, WD/WN, Anxious Ears: Normal External Exam Nose: Normal Inspection Throat/Mouth: Normal Inspection, Normal Lips, No Airway Compromise Head: Atraumatic, Normocephalic Neck: Supple, Non-Tender Respiratory/Chest: Lungs Clear, Normal Breath Sounds, Decreased Breath Sounds Cardiovascular: Regular Rate, Rhythm, Other (mild edema to ankles ) GI/Abdominal: Normal Bowel Sounds, Non-Tender Extremities: Normal Range of Motion, Pedal Edema Neurological: Alert, Oriented, Normal Cognition Course - Vital Signs Last Recorded V/S: Last Vital Signs Temp Pulse 91 04/04/17 17:05 Resp 14 04/04/17 17:05 BP 176/98 H 04/04/17 17:05 Pulse Ox 97 04/04/17 17:05 - Orders/Labs/Meds Orders: Active Orders 24 hr Category Date Time Status Patient Status [ADT] Routine ADT 04/04/17 17:05 Active EKG Documentation Completion [RC] ASDIRECTED Care 04/04/17 16:52 Active Oxygen Therapy [RC] PRN Care 04/04/17 17:05 Active Vital Signs [RC] Q4H Care 04/04/17 17:05 Active Chest 1V Frontal [CR] Stat Exams 04/04/17 17:03 Ordered Chest 2V [CR] Stat Exams 04/04/17 16:51 Stop Req B-TYPE NATRIURETIC PEPTIDE,BNP [CHEM] Stat Lab 04/04/17 16:51 Ordered CBC WITH AUTO DIFF [HEME] Stat Lab 04/04/17 16:50 Ordered COMPREHENSIVE METABOLIC PN,CMP [CHEM] Stat Lab 04/04/17 16:50 Ordered D Dimer [D-DIMER QUANTITATIVE] [COAG] Stat Lab 04/04/17 17:00 Ordered TROPONIN I [CHEM] Stat Lab 04/04/17 16:51 Ordered EKG 12 Lead [EK] Routine Ther 04/04/17 16:52 Ordered - Re-Assessments/Exams Free Text/Narrative Re-Assessment/Exam: 04/04/17 17:16 Begin admit and assessment with orders for shortness of breath and left sided chest pain with light headedness. States neck and migraine pain this week. EKG completed, NSR noted. Orders chest x-ray, CBC, CMP, troponins, BNP, and d-dimer. Transferred care to Dr Dumas. admit to observation. Departure - Departure Time of Disposition: 17:18 Disposition: Refer to Observation Condition: Fair Clinical Impression: Shortness of breath - Discharge Information Referrals: Dacia Quiñonez, [facility] DIRECTOR [Primary Care Provider] - Forms: ED Department Discharge - My Orders Last 24 Hours: My Active Orders 04/04/17 16:50 CBC WITH AUTO DIFF [HEME] Stat COMPREHENSIVE METABOLIC PN,CMP [CHEM] Stat 04/04/17 16:51 Chest 2V [CR] Stat B-TYPE NATRIURETIC PEPTIDE,BNP [CHEM] Stat TROPONIN I [CHEM] Stat 04/04/17 16:52 EKG Documentation Completion [RC] ASDIRECTED EKG 12 Lead [EK] Routine 04/04/17 17:00 D Dimer [D-DIMER QUANTITATIVE] [COAG] Stat 04/04/17 17:03 Chest 1V Frontal [CR] Stat 04/04/17 17:05 Patient Status [ADT] Routine Oxygen Therapy [RC] PRN Vital Signs [RC] Q4H - Assessment/Plan Last 24 Hours: My Active Orders 04/04/17 16:50 CBC WITH AUTO DIFF [HEME] Stat COMPREHENSIVE METABOLIC PN,CMP [CHEM] Stat 04/04/17 16:51 Chest 2V [CR] Stat B-TYPE NATRIURETIC PEPTIDE,BNP [CHEM] Stat TROPONIN I [CHEM] Stat 04/04/17 16:52 EKG Documentation Completion [RC] ASDIRECTED EKG 12 Lead [EK] Routine 04/04/17 17:00 D Dimer [D-DIMER QUANTITATIVE] [COAG] Stat 04/04/17 17:03 Chest 1V Frontal [CR] Stat 04/04/17 17:05 Patient Status [ADT] Routine Oxygen Therapy [RC] PRN Vital Signs [RC] Q4H
[2017-04-04] MEDS ORDERED: Sodium Chloride 0.9% 1,000 ML IV ONE (18:20)
[2017-04-04] MEDS ORDERED: Albuterol 0.083% 2.5 MG/3 ML Neb Soln NEB ONE (18:30)
[2017-04-04] MEDS ORDERED: Albuterol 0.083% 2.5 MG/3 ML Neb Soln ONE (18:57)
[2017-04-04] MEDS ORDERED: Ketorolac 30 MG/ML SDV IVPUSH ONE (19:13)
[2017-04-04] MEDS ORDERED: Ketorolac 30 MG/ML SDV ONE (19:22)
[2017-04-04] MEDS ORDERED: Warfarin 7.5 MG Tab PO ONE (20:30)
[2017-04-04] MEDS: Sodium Chloride 0.9% 1,000 ML IV SCH (21:00)
[2017-04-04] MEDS ORDERED: Enoxaparin 80 MG/0.8 ML Syringe ONE (21:45)
[2017-04-04] MEDS: Enoxaparin 150 MG/1 ML Syringe SUBCUT SCH (21:55)
[2017-04-05] MEDS ORDERED: Ketorolac 30 MG/ML SDV IVPUSH ONE (05:53)
[2017-04-05] MEDS ORDERED: Ketorolac 30 MG/ML SDV ONE (05:58)
[2017-04-05] MEDS: Enoxaparin 150 MG/1 ML Syringe SUBCUT SCH (08:23)
--- NOTE | 2017-04-05 08:42 | CR ---
DATE OF SERVICE: 04/04/17 CLINICAL DATA: chest pain and shortness of breath AP PORTABLE CHEST: Comparison is made to a prior exam dated 03/14/17. The patient has taken a poor inspiration. The patient is also in an apical lordotic position. The cardiac pacer and pacer wires remain unchanged. The heart size is within normal limits. There are atelectatic changes in both lung bases. The lungs are otherwise clear. No pneumothorax. No pleural effusions. [id number] [facility]
--- NOTE | 2017-04-05 08:48 | CT ---
DATE OF SERVICE: 04/04/17 CLINICAL DATA: Rule out PE ENHANCED CHEST CT: Multislice acquisition through the chest with IV contrast was performed. No priors. There is suboptimal opacification of the pulmonary arteries. There are filling defects noted within the right main pulmonary artery at its bifurcation. There are also filling defects noted within the right upper lobe pulmonary arteries, right intermediate pulmonary artery, and within the right lower and middle lobe pulmonary arteries consistent with extensive PE. No evidence of PE on the left. No pneumothorax. No pleural effusions. No aortic aneurysm or dissection. The heart size is normal. There is a small pericardial effusion. No hilar or mediastinal adenopathy. No other significant findings. IMPRESSION: Positive exam for PE. The patient's physician was notified of the finding by telephone and by [facility] preliminary radiology report. [id number] MTDD
[2017-04-05] MEDS ORDERED: Cyclobenzaprine 10 MG Tab PO PRN (10:43)
[2017-04-05] MEDS ORDERED: INSULIN PUMP MC SCH (10:45)
[2017-04-05] MEDS: Ketorolac 30 MG/ML SDV ONE (11:45)
[2017-04-05] MEDS: Sodium Chloride 0.9% 1,000 ML IV SCH (13:42)
[2017-04-05] MEDS ORDERED: Furosemide 20 MG Tab PO SCH (14:00)
[2017-04-05] MEDS ORDERED: Furosemide 20 MG Tab ONE (14:12)
[2017-04-05] MEDS ORDERED: Furosemide 40 MG Tab ONE (14:12)
[2017-04-05] MEDS ORDERED: Tamsulosin 0.4 MG Cap.ER ONE (14:13)
[2017-04-05] MEDS ORDERED: Omeprazole 40 MG Cap.CR ONE (14:13)
[2017-04-05] MEDS ORDERED: Aspirin 81 MG Tab.EC ONE (14:13)
[2017-04-05] MEDS ORDERED: Metoprolol Succinate 25 MG Tab.ER ONE (14:13)
[2017-04-05] MEDS ORDERED: Metoclopramide 5 MG Tab ONE (14:14)
[2017-04-05] MEDS ORDERED: Polyethylene Glycol 3350 Powder 17 GM Packet ONE (14:15)
[2017-04-05] MEDS: Metoclopramide 10 MG Tab PO SCH ×3 (14:20→20:35)
[2017-04-05] MEDS: Omeprazole 40 MG Cap.CR PO SCH (14:21)
[2017-04-05] MEDS: Aspirin 81 MG Tab.Chew PO SCH (14:22)
[2017-04-05] MEDS: Tamsulosin 0.4 MG Cap.ER PO SCH (14:23)
[2017-04-05] MEDS: Metoprolol Succinate 25 MG Tab.ER PO SCH (14:24)
--- NOTE | 2017-04-05 14:58 | PCM.PN ---
- General Info Date of Service: 04/05/17 Subjective Update: This is a 71yo M admitted for a right saddle pulmonary embolism and increased shortness of breath. Patient was started on lovenox and warfarin yesterday. Patient continues to have shortness of breath but states the symptoms have slowly progressed and worsened but that he may have had theses symptoms for many months. Patient denies any chest pain or lightheadedness at this time. He feels well and resting comfortably. Functional Status: Reports: Tolerating Diet - Review of Systems General: Reports: No Symptoms HEENT: Reports: Headaches Pulmonary: Reports: Shortness of Breath Cardiovascular: Reports: No Symptoms Gastrointestinal: Reports: No Symptoms Genitourinary: Reports: No Symptoms Musculoskeletal: Reports: No Symptoms Skin: Reports: No Symptoms Neurological: Reports: No Symptoms Psychiatric: Reports: No Symptoms - Patient Data Vitals - Most Recent: Last Vital Signs Temp 36.6 C 04/05/17 08:00 Pulse 70 04/05/17 14:24 Resp 20 04/05/17 08:00 BP 158/79 H 04/05/17 14:24 Pulse Ox 97 04/05/17 08:00 Weight - Most Recent: 155.582 kg Lab Results Last 24 Hours: Laboratory Results - last 24 hr 04/05/17 Range/Units 14:00 Whole Blood INR 1.3 (1.0-3.5) Med Orders - Current: Current Medications Aspirin (Aspirin) 81 mg PO DAILY [facility] Last Admin: 04/05/17 14:22 Dose: 81 mg Atorvastatin Calcium (Lipitor) 20 mg PO BEDTIME [facility] Cyclobenzaprine HCl (Flexeril) 10 mg PO TID PRN PRN Reason: Muscle Spasm Enoxaparin Sodium (Lovenox) 160 mg SUBCUT BID [facility] Furosemide (Lasix) 60 mg PO DAILY [facility] Last Admin: 04/05/17 14:23 Dose: 60 mg Furosemide (Lasix) 20 mg PO DAILY [facility] Sodium Chloride (Normal Saline) 1,000 mls @ 65 mls/hr IV ASDIRECTED [facility] Last Admin: 04/05/17 13:42 Dose: 65 mls/hr Ketorolac Tromethamine (Toradol) 30 mg IVPUSH Q6H PRN PRN Reason: Headache Stop: 04/10/17 11:52 Metoclopramide HCl (Reglan) 10 mg PO QID [facility] Last Admin: 04/05/17 14:20 Dose: 10 mg Metoprolol Succinate (Toprol Xl) 25 mg PO DAILY [facility] Last Admin: 04/05/17 14:24 Dose: 25 mg Non-Formulary Medication (Insulin Pump Syringe, 3 Ml [Minimed [place]]) 1 each ASDIRECTED [facility] Omeprazole (Omeprazole) 40 mg PO ACBREAKFAST [facility] Last Admin: 04/05/17 14:21 Dose: 40 mg Oxycodone/Acetaminophen (Percocet 325-5 Mg) 1 tab PO Q6H PRN PRN Reason: Pain Polyethylene Glycol (Miralax) 17 gm PO DAILY [facility] Tamsulosin HCl (Flomax) 0.8 mg PO DAILY [facility] Last Admin: 04/05/17 14:23 Dose: 0.8 mg Warfarin Sodium (Coumadin) 3 mg PO DAILY@1800 [facility] Discontinued Medications Albuterol (Proventil Neb Soln) 2.5 mg NEB Q4H ONE Stop: 04/04/17 18:31 Last Admin: 04/04/17 18:54 Dose: 2.5 mg Albuterol (Proventil Neb Soln) Confirm Administered Dose 2.5 mg .ROUTE .STK-MED ONE Stop: 04/04/17 18:58 Last Admin: 04/04/17 20:12 Dose: Not Given Aspirin (Halfprin) Confirm Administered Dose 81 mg .ROUTE .STK-MED ONE Stop: 04/05/17 14:14 Enoxaparin Sodium (Lovenox) 160 mg SUBCUT Q12HR [facility] Last Admin: 04/05/17 08:23 Dose: 160 mg Enoxaparin Sodium (Lovenox) Confirm Administered Dose 160 mg .ROUTE .STK-MED ONE Stop: 04/04/17 21:46 Last Admin: 04/04/17 21:55 Dose: Not Given Furosemide (Lasix) Confirm Administered Dose 20 mg .ROUTE .STK-MED ONE Stop: 04/05/17 14:13 Furosemide (Lasix) Confirm Administered Dose 40 mg .ROUTE .STK-MED ONE Stop: 04/05/17 14:13 Sodium Chloride (Normal Saline) 1,000 mls @ 500 mls/hr IV ASDIRECTED ONE Stop: 04/04/17 20:19 Last Admin: 04/04/17 21:36 Dose: 500 mls/hr Ketorolac Tromethamine (Toradol) 30 mg IVPUSH ONETIME ONE Stop: 04/04/17 19:14 Last Admin: 04/04/17 19:51 Dose: 30 mg Ketorolac Tromethamine (Toradol) Confirm Administered Dose 30 mg .ROUTE .STK- MED ONE Stop: 04/04/17 19:23 Last Admin: 04/04/17 19:49 Dose: Not Given Ketorolac Tromethamine (Toradol) 30 mg IVPUSH ONETIME ONE Stop: 04/05/17 05:54 Last Admin: 04/05/17 06:33 Dose: 30 mg Ketorolac Tromethamine (Toradol) Confirm Administered Dose 30 mg .ROUTE .STK- MED ONE Stop: 04/05/17 05:59 Last Admin: 04/05/17 06:30 Dose: Not Given Ketorolac Tromethamine (Toradol) Confirm Administered Dose 30 mg .ROUTE .STK- MED ONE Stop: 04/05/17 11:42 Last Admin: 04/05/17 11:45 Dose: 30 mg Metoclopramide HCl (Reglan) Confirm Administered Dose 10 mg .ROUTE .STK-MED ONE Stop: 04/05/17 14:15 Metoprolol Succinate (Toprol Xl) Confirm Administered Dose 25 mg .ROUTE .STK- MED ONE Stop: 04/05/17 14:14 Omeprazole (Omeprazole) Confirm Administered Dose 40 mg .ROUTE .STK-MED ONE Stop: 04/05/17 14:14 Polyethylene Glycol (Miralax) Confirm Administered Dose 17 gm .ROUTE .STK-MED ONE Stop: 04/05/17 14:16 Tamsulosin HCl (Flomax) Confirm Administered Dose 0.8 mg .ROUTE .STK-MED ONE Stop: 04/05/17 14:14 Warfarin Sodium (Coumadin) 7.5 mg PO ONETIME ONE Stop: 04/04/17 20:31 Last Admin: 04/04/17 21:39 Dose: 7.5 mg - Exam Quality Assessment: Supplemental Oxygen General: Alert, Oriented, Cooperative HEENT: Pupils Equal, Pupils Reactive Neck: Supple Lungs: Clear to Auscultation, Normal Respiratory Effort Cardiovascular: Regular Rate, Regular Rhythm GI/Abdominal Exam: Normal Bowel Sounds, Soft, Non-Tender Back Exam: Normal Inspection Extremities: Normal Inspection, Normal Range of Motion Peripheral Pulses: 2+: Dorsalis Pedis (L), Dorsalis Pedis (R) Skin: Warm, Dry, Intact Neurological: No New Focal Deficit Psy/Mental Status: Alert, Normal Affect, Normal Mood - Problem List & Annotations (1) Pulmonary embolism on right SNOMED Code(s): 20463638 Code(s): I26.99 - OTHER PULMONARY EMBOLISM WITHOUT ACUTE COR PULMONALE Status: Acute Current Visit: Yes (2) Shortness of breath SNOMED Code(s): 123134649 Code(s): R06.02 - SHORTNESS OF BREATH Status: Acute Current Visit: Yes (3) Headache SNOMED Code(s): 40176654 Code(s): R51 - HEADACHE Status: Acute Current Visit: No (4) Diabetes mellitus SNOMED Code(s): 05634274 Code(s): E11.9 - TYPE 2 DIABETES MELLITUS WITHOUT COMPLICATIONS Status: Chronic Priority: Medium Current Visit: No Qualifiers: Diabetes mellitus type: type 2 Diabetes mellitus complication status: without complication Qualified Code(s): E11.9 - Type 2 diabetes mellitus without complications (5) Migraine SNOMED Code(s): 39815640 Code(s): G43.909 - MIGRAINE, UNSP, NOT INTRACTABLE, WITHOUT STATUS MIGRAINOSUS Status: Chronic Priority: High Current Visit: No Onset Date : 05/06/14 Annotation/Comment:: 10/02/15 - Migraine 12/14/2014 Cannot give Toradol as doing epidural tomorrow. Will give dilaudid and phenergan now. - Problem List Review Problem List Initiated/Reviewed/Updated: Yes - My Orders Last 24 Hours: My Active Orders 04/05/17 10:43 Acetaminophen/oxyCODONE [Percocet 325-5 MG] 1 tab PO Q6H PRN Cyclobenzaprine [Flexeril] 10 mg PO TID PRN 04/05/17 10:45 Insulin Pump Syringe, 3 mL [Minimed [place]] 1 each ASDIRECTED 04/05/17 11:45 Warfarin [Coumadin] 3 mg PO DAILY@1800 04/05/17 11:52 Ketorolac [Toradol] 30 mg IVPUSH Q6H PRN 04/05/17 12:00 Metoclopramide [Reglan] 10 mg PO QID 04/05/17 20:00 atorvaSTATin [Lipitor] 20 mg PO BEDTIME 04/06/17 07:00 Omeprazole 40 mg PO ACBREAKFAST 04/06/17 08:00 Aspirin 81 mg PO DAILY Furosemide [Lasix] 20 mg PO DAILY Furosemide [Lasix] 60 mg PO DAILY Metoprolol Succinate [Toprol XL] 25 mg PO DAILY Polyethylene Glycol 3350 [MiraLAX] 17 gm PO DAILY Tamsulosin [Flomax] 0.8 mg PO DAILY - Plan Plan:: Patient has been admitted today from observation due to shortness of breath and lightheadedness on slight exertion. He is currently being bridged and has had difficulty with INR management in the past due to high INR levels. LAVON and Factor 5 [place] screen ordered. Continue telemetry and monitoring.
[2017-04-05] MEDS ORDERED: Polyethylene Glycol 3350 Powder 17 GM Packet PO PRN (15:55)
[2017-04-05] MEDS: Warfarin 3 MG Tab PO SCH ×3 (16:18→17:03)
[2017-04-05] MEDS: atorvaSTATin 20 MG Tab PO SCH (20:33)
[2017-04-05] MEDS: Enoxaparin 80 MG/0.8 ML Syringe SUBCUT SCH (20:34)
[2017-04-05] MEDS: Acetaminophen/oxyCODONE 325-5 MG Tab PO PRN (20:47)
[2017-04-05] MEDS: Ketorolac 30 MG/ML SDV IVPUSH PRN (20:48)
[2017-04-06] MEDS: Acetaminophen/oxyCODONE 325-5 MG Tab PO PRN ×2 (03:02→16:48)
[2017-04-06] MEDS: Ketorolac 30 MG/ML SDV IVPUSH PRN ×2 (03:04→18:19)
[2017-04-06] MEDS: Omeprazole 40 MG Cap.CR PO SCH (06:57)
[2017-04-06] MEDS ORDERED: Omeprazole 20 MG Cap.CR PO SCH (07:00)
[2017-04-06] MEDS ORDERED: Polyethylene Glycol 3350 Powder 17 GM Packet PO SCH (08:00)
[2017-04-06] MEDS ORDERED: Furosemide 40 MG Tab PO SCH ×2 (08:00)
[2017-04-06] MEDS: Tamsulosin 0.4 MG Cap.ER PO SCH (08:17)
[2017-04-06] MEDS: Furosemide 20 MG Tab PO SCH ×2 (08:18→12:14)
[2017-04-06] MEDS: Metoprolol Succinate 25 MG Tab.ER PO SCH (08:18)
[2017-04-06] MEDS: Aspirin 81 MG Tab.Chew PO SCH (08:18)
[2017-04-06] MEDS: Enoxaparin 80 MG/0.8 ML Syringe SUBCUT SCH ×2 (08:19→19:42)
[2017-04-06] MEDS: Metoclopramide 10 MG Tab PO SCH ×4 (08:19→19:42)
--- NOTE | 2017-04-06 11:22 | PCM.PN ---
- General Info Date of Service: 04/06/17 Subjective Update: This is a 71yo M admitted for a right saddle pulmonary embolism and increased shortness of breath. Patient was started on lovenox and warfarin yesterday. Patient continues to have shortness of breath but states the symptoms have slowly progressed and worsened but that he may have had theses symptoms for many months. Patient denies any chest pain or lightheadedness at this time. He feels well and resting comfortably. Functional Status: Reports: Pain Controlled - Review of Systems General: Reports: No Symptoms HEENT: Reports: No Symptoms Pulmonary: Reports: Shortness of Breath Cardiovascular: Reports: No Symptoms Gastrointestinal: Reports: No Symptoms Genitourinary: Reports: No Symptoms Musculoskeletal: Reports: No Symptoms Skin: Reports: No Symptoms Neurological: Reports: No Symptoms Psychiatric: Reports: No Symptoms - Patient Data Vitals - Most Recent: Last Vital Signs Temp 35.8 C 04/06/17 08:00 Pulse 66 04/06/17 08:18 Resp 22 H 04/06/17 08:00 BP 160/79 H 04/06/17 08:18 Pulse Ox 97 04/06/17 08:00 Weight - Most Recent: 155.31 kg I&O - Last 24 Hours: Intake & Output 04/05/17 04/06/17 04/06/17 22:59 06:59 14:59 Intake Total 1030 Output Total 1050 Balance -20 Lab Results Last 24 Hours: Laboratory Results - last 24 hr 04/05/17 04/06/17 04/06/17 Range/Units 14:00 07:44 07:44 WBC 9.5 (4.0-11.0) K/uL RBC 4.74 (4.50-6.50) M/uL Hgb 13.7 (13.0-18.0) g/dL Hct 39.9 L (40.0-54.0) % MCV 84 (76-96) fL MCH 28.9 (27.0-32.0) pg MCHC 34.3 (31.0-35.0) g/dL RDW 14.6 (11.0-16.0) % Plt Count 123 L (150-400) K/uL MPV 10.1 H (6.0-10.0) fL Neut % (Auto) 67.3 (45.0-70.0) % Lymph % (Auto) 24.2 (20.0-40.0) % Mayes % (Auto) 7.0 (3.0-10.0) % Eos % (Auto) 1.2 (1.0-5.0) % Baso % (Auto) 0.3 (0.0-0.5) % Neut # (Auto) 6.39 (2.00-7.50) K/uL Lymph # (Auto) 2.29 (1.50-4.00) K/uL Mayes # (Auto) 0.66 (0.20-0.80) K/uL Eos # (Auto) 0.11 (0.04-0.40) K/uL Baso # (Auto) 0.03 (0.02-0.10) K/uL PT 14.1 H D (9.0-11.5) sec INR 1.5 D (1.0-3.5) Whole Blood INR 1.3 (1.0-3.5) Sodium (136-145) mmol/L Potassium (3.5-5.1) mmol/L Chloride (98-107) mmol/L Carbon Dioxide (21.0-32.0) mmol/L Anion Gap (5.0-15.0) mmol/L BUN (8-26) mg/dL Creatinine (0.70-1.30) mg/dL Est Cr Clr Drug Dosing mL/min Estimated GFR (MDRD) (>60) MLS/MIN BUN/Creatinine Ratio (6-25) Glucose (74-100) mg/dL Calcium (8.5-10.1) mg/dL Total Bilirubin (0.0-1.0) mg/dL AST (15-37) U/L ALT (12-78) U/L Alkaline Phosphatase (46-116) U/L Total Protein (6.4-8.2) g/dL Albumin (3.4-5.0) g/dL Globulin (2.2-4.2) g/dL Albumin/Globulin Ratio (0.8-2.0) 04/06/17 Range/Units 07:44 WBC (4.0-11.0) K/uL RBC (4.50-6.50) M/uL Hgb (13.0-18.0) g/dL Hct (40.0-54.0) % MCV (76-96) fL MCH (27.0-32.0) pg MCHC (31.0-35.0) g/dL RDW (11.0-16.0) % Plt Count (150-400) K/uL MPV (6.0-10.0) fL Neut % (Auto) (45.0-70.0) % Lymph % (Auto) (20.0-40.0) % Mayes % (Auto) (3.0-10.0) % Eos % (Auto) (1.0-5.0) % Baso % (Auto) (0.0-0.5) % Neut # (Auto) (2.00-7.50) K/uL Lymph # (Auto) (1.50-4.00) K/uL Mayes # (Auto) (0.20-0.80) K/uL Eos # (Auto) (0.04-0.40) K/uL Baso # (Auto) (0.02-0.10) K/uL PT (9.0-11.5) sec INR (1.0-3.5) Whole Blood INR (1.0-3.5) Sodium 140 (136-145) mmol/L Potassium 3.7 (3.5-5.1) mmol/L Chloride 105 (98-107) mmol/L Carbon Dioxide 26.5 (21.0-32.0) mmol/L Anion Gap 12.2 (5.0-15.0) mmol/L BUN 26 D (8-26) mg/dL Creatinine 1.39 H (0.70-1.30) mg/dL Est Cr Clr Drug Dosing 55.05 mL/min Estimated GFR (MDRD) 51 L (>60) MLS/MIN BUN/Creatinine Ratio 18.7 (6-25) Glucose 65 L D (74-100) mg/dL Calcium 8.2 L (8.5-10.1) mg/dL Total Bilirubin 0.6 (0.0-1.0) mg/dL AST 21 (15-37) U/L ALT 31 (12-78) U/L Alkaline Phosphatase 102 (46-116) U/L Total Protein 6.6 (6.4-8.2) g/dL Albumin 3.2 L (3.4-5.0) g/dL Globulin 3.4 (2.2-4.2) g/dL Albumin/Globulin Ratio 0.9 (0.8-2.0) Med Orders - Current: Current Medications Aspirin (Aspirin) 81 mg PO DAILY [facility] Last Admin: 04/06/17 08:18 Dose: 81 mg Atorvastatin Calcium (Lipitor) 20 mg PO BEDTIME [facility] Last Admin: 04/05/17 20:33 Dose: 20 mg Cyclobenzaprine HCl (Flexeril) 10 mg PO TID PRN PRN Reason: Muscle Spasm Enoxaparin Sodium (Lovenox) 160 mg SUBCUT BID [facility] Last Admin: 04/06/17 08:19 Dose: 160 mg Furosemide (Lasix) 20 mg PO DAILY [facility] Last Admin: 04/06/17 08:18 Dose: 20 mg Furosemide (Lasix) 60 mg PO DAILY@1200 [facility] Sodium Chloride (Normal Saline) 1,000 mls @ 65 mls/hr IV ASDIRECTED [facility] Last Admin: 04/05/17 13:42 Dose: 65 mls/hr Ketorolac Tromethamine (Toradol) 30 mg IVPUSH Q6H PRN PRN Reason: Headache Stop: 04/10/17 11:52 Last Admin: 04/06/17 03:04 Dose: 30 mg Metoclopramide HCl (Reglan) 10 mg PO QID [facility] Last Admin: 04/06/17 08:19 Dose: 10 mg Metoprolol Succinate (Toprol Xl) 25 mg PO DAILY [facility] Last Admin: 04/06/17 08:18 Dose: 25 mg Non-Formulary Medication (Insulin Pump Syringe, 3 Ml [Minimed [place]]) 1 each ASDIRECTED [facility] Omeprazole (Omeprazole) 40 mg PO ACBREAKFAST [facility] Last Admin: 04/06/17 06:57 Dose: 40 mg Oxycodone/Acetaminophen (Percocet 325-5 Mg) 1 tab PO Q6H PRN PRN Reason: Pain Last Admin: 04/06/17 03:02 Dose: 1 tab Polyethylene Glycol (Miralax) 17 gm PO DAILY PRN PRN Reason: Constipation Tamsulosin HCl (Flomax) 0.8 mg PO DAILY [facility] Last Admin: 04/06/17 08:17 Dose: 0.8 mg Warfarin Sodium (Coumadin) 3 mg PO DAILY@1800 [facility] Last Admin: 04/05/17 17:03 Dose: Not Given Discontinued Medications Albuterol (Proventil Neb Soln) 2.5 mg NEB Q4H ONE Stop: 04/04/17 18:31 Last Admin: 04/04/17 18:54 Dose: 2.5 mg Albuterol (Proventil Neb Soln) Confirm Administered Dose 2.5 mg .ROUTE .STK-MED ONE Stop: 04/04/17 18:58 Last Admin: 04/04/17 20:12 Dose: Not Given Aspirin (Halfprin) Confirm Administered Dose 81 mg .ROUTE .STK-MED ONE Stop: 04/05/17 14:14 Last Admin: 04/05/17 15:52 Dose: Not Given Enoxaparin Sodium (Lovenox) 160 mg SUBCUT Q12HR [facility] Last Admin: 04/05/17 08:23 Dose: 160 mg Enoxaparin Sodium (Lovenox) Confirm Administered Dose 160 mg .ROUTE .STK-MED ONE Stop: 04/04/17 21:46 Last Admin: 04/04/17 21:55 Dose: Not Given Furosemide (Lasix) 60 mg PO DAILY [facility] Last Admin: 04/05/17 14:23 Dose: 60 mg Furosemide (Lasix) Confirm Administered Dose 20 mg .ROUTE .STK-MED ONE Stop: 04/05/17 14:13 Last Admin: 04/05/17 15:53 Dose: Not Given Furosemide (Lasix) Confirm Administered Dose 40 mg .ROUTE .STK-MED ONE Stop: 04/05/17 14:13 Last Admin: 04/05/17 15:52 Dose: Not Given Sodium Chloride (Normal Saline) 1,000 mls @ 500 mls/hr IV ASDIRECTED ONE Stop: 04/04/17 20:19 Last Admin: 04/04/17 21:36 Dose: 500 mls/hr Ketorolac Tromethamine (Toradol) 30 mg IVPUSH ONETIME ONE Stop: 04/04/17 19:14 Last Admin: 04/04/17 19:51 Dose: 30 mg Ketorolac Tromethamine (Toradol) Confirm Administered Dose 30 mg .ROUTE .STK- MED ONE Stop: 04/04/17 19:23 Last Admin: 04/04/17 19:49 Dose: Not Given Ketorolac Tromethamine (Toradol) 30 mg IVPUSH ONETIME ONE Stop: 04/05/17 05:54 Last Admin: 04/05/17 06:33 Dose: 30 mg Ketorolac Tromethamine (Toradol) Confirm Administered Dose 30 mg .ROUTE .STK- MED ONE Stop: 04/05/17 05:59 Last Admin: 04/05/17 06:30 Dose: Not Given Ketorolac Tromethamine (Toradol) Confirm Administered Dose 30 mg .ROUTE .STK- MED ONE Stop: 04/05/17 11:42 Last Admin: 04/05/17 11:45 Dose: 30 mg Metoclopramide HCl (Reglan) Confirm Administered Dose 10 mg .ROUTE .STK-MED ONE Stop: 04/05/17 14:15 Last Admin: 04/05/17 15:51 Dose: Not Given Metoprolol Succinate (Toprol Xl) Confirm Administered Dose 25 mg .ROUTE .STK- MED ONE Stop: 04/05/17 14:14 Last Admin: 04/05/17 15:51 Dose: Not Given Omeprazole (Omeprazole) Confirm Administered Dose 40 mg .ROUTE .STK-MED ONE Stop: 04/05/17 14:14 Last Admin: 04/05/17 15:52 Dose: Not Given Polyethylene Glycol (Miralax) 17 gm PO DAILY ZEV Polyethylene Glycol (Miralax) Confirm Administered Dose 17 gm .ROUTE .STK-MED ONE Stop: 04/05/17 14:16 Last Admin: 04/05/17 15:51 Dose: Not Given Tamsulosin HCl (Flomax) Confirm Administered Dose 0.8 mg .ROUTE .STK-MED ONE Stop: 04/05/17 14:14 Last Admin: 04/05/17 15:52 Dose: Not Given Warfarin Sodium (Coumadin) 7.5 mg PO ONETIME ONE Stop: 04/04/17 20:31 Last Admin: 04/04/17 21:39 Dose: 7.5 mg - Exam General: Alert, Oriented HEENT: Pupils Equal, Pupils Reactive, EOMI, Mucous Membr. Moist/[place] Neck: Supple Lungs: Decreased Breath Sounds Cardiovascular: Regular Rate, Regular Rhythm GI/Abdominal Exam: Normal Bowel Sounds, Soft, Non-Tender, No Organomegaly, No Distention, No Abnormal Bruit, No Mass, Pelvis Stable Extremities: Normal Inspection, Normal Range of Motion, Non-Tender, No Pedal Edema, Normal Capillary Refill - Problem List Review Problem List Initiated/Reviewed/Updated: Yes - My Orders Last 24 Hours: My Active Orders 04/07/17 07:00 INR,PT,PROTHROMBIN TIME [[facility]] Routine 04/08/17 07:00 INR,PT,PROTHROMBIN TIME [[facility]] Routine - Assessment Assessment:: Patient has a PE being treated with Lovenox and Warfarin. His INR was 1.5 this AM and he is feeling a little better. No changes from Dr. Dumas's orders and will follow closely and round on him again tomorrow. - Plan Plan:: Patient has been admitted today from observation due to shortness of breath and lightheadedness on slight exertion. He is currently being bridged and has had difficulty with INR management in the past due to high INR levels. LAVON and Factor 5 [place] screen ordered. Continue telemetry and monitoring.
[2017-04-06] MEDS: Warfarin 3 MG Tab PO SCH (17:06)
[2017-04-06] MEDS: atorvaSTATin 20 MG Tab PO SCH (19:42)
[2017-04-06] MEDS: Sodium Chloride 0.9% 1,000 ML IV SCH (20:56)
[2017-04-07] MEDS: Omeprazole 40 MG Cap.CR PO SCH (06:42)
[2017-04-07] MEDS: Aspirin 81 MG Tab.Chew PO SCH (07:40)
[2017-04-07] MEDS: Tamsulosin 0.4 MG Cap.ER PO SCH (07:41)
[2017-04-07] MEDS: Furosemide 20 MG Tab PO SCH ×2 (07:42→12:12)
[2017-04-07] MEDS: Enoxaparin 80 MG/0.8 ML Syringe SUBCUT SCH (07:42)
[2017-04-07] MEDS: Metoprolol Succinate 25 MG Tab.ER PO SCH (07:44)
[2017-04-07] MEDS: Metoclopramide 10 MG Tab PO SCH ×4 (07:45→19:52)
--- NOTE | 2017-04-07 13:04 | PCM.PN ---
- General Info Date of Service: 04/07/17 Subjective Update: This is a 71yo M admitted for a right saddle pulmonary embolism and increased shortness of breath. Patient was started on lovenox and warfarin yesterday. Patient continues to have shortness of breath but states the symptoms have slowly progressed and worsened but that he may have had theses symptoms for many months. Patient denies any chest pain or lightheadedness at this time. He feels well and resting comfortably. Functional Status: Reports: Pain Controlled, Tolerating Diet, Ambulating - Review of Systems General: Reports: No Symptoms HEENT: Reports: No Symptoms Pulmonary: Reports: Shortness of Breath, Other (His shortness of breath is better. He feels very good today.) Cardiovascular: Reports: No Symptoms Gastrointestinal: Reports: No Symptoms Genitourinary: Reports: No Symptoms Musculoskeletal: Reports: No Symptoms Skin: Reports: No Symptoms Neurological: Reports: No Symptoms Psychiatric: Reports: No Symptoms - Patient Data Vitals - Most Recent: Last Vital Signs Temp 36.1 C 04/07/17 07:00 Pulse 66 04/07/17 07:44 Resp 20 04/07/17 07:00 BP 146/77 H 04/07/17 07:44 Pulse Ox 97 04/07/17 07:00 Weight - Most Recent: 154.993 kg I&O - Last 24 Hours: Intake & Output 04/06/17 04/07/17 04/07/17 23:59 06:59 14:59 Intake Total Balance Lab Results Last 24 Hours: Laboratory Results - last 24 hr 04/07/17 Range/Units 07:45 Whole Blood INR 2.7 (1.0-3.5) Med Orders - Current: Current Medications Aspirin (Aspirin) 81 mg PO DAILY [facility] Last Admin: 04/07/17 07:40 Dose: 81 mg Atorvastatin Calcium (Lipitor) 20 mg PO BEDTIME [facility] Last Admin: 04/06/17 19:42 Dose: 20 mg Cyclobenzaprine HCl (Flexeril) 10 mg PO TID PRN PRN Reason: Muscle Spasm Furosemide (Lasix) 20 mg PO DAILY [facility] Last Admin: 04/07/17 07:42 Dose: 20 mg Furosemide (Lasix) 60 mg PO DAILY@1200 [facility] Last Admin: 04/07/17 12:12 Dose: 60 mg Sodium Chloride (Normal Saline) 1,000 mls @ 65 mls/hr IV ASDIRECTED [facility] Last Admin: 04/06/17 20:56 Dose: 65 mls/hr Ketorolac Tromethamine (Toradol) 30 mg IVPUSH Q6H PRN PRN Reason: Headache Stop: 04/10/17 11:52 Last Admin: 04/06/17 18:19 Dose: 30 mg Metoclopramide HCl (Reglan) 10 mg PO QID [facility] Last Admin: 04/07/17 12:13 Dose: 10 mg Metoprolol Succinate (Toprol Xl) 25 mg PO DAILY [facility] Last Admin: 04/07/17 07:44 Dose: 25 mg Non-Formulary Medication (Insulin Pump Syringe, 3 Ml [Minimed [place]]) 1 each ASDIRECTED [facility] Omeprazole (Omeprazole) 40 mg PO ACBREAKFAST [facility] Last Admin: 04/07/17 06:42 Dose: 40 mg Oxycodone/Acetaminophen (Percocet 325-5 Mg) 1 tab PO Q6H PRN PRN Reason: Pain Last Admin: 04/06/17 16:48 Dose: 1 tab Polyethylene Glycol (Miralax) 17 gm PO DAILY PRN PRN Reason: Constipation Tamsulosin HCl (Flomax) 0.8 mg PO DAILY [facility] Last Admin: 04/07/17 07:41 Dose: 0.8 mg Warfarin Sodium (Coumadin) 2 mg PO DAILY@1800 [facility] Discontinued Medications Albuterol (Proventil Neb Soln) 2.5 mg NEB Q4H ONE Stop: 04/04/17 18:31 Last Admin: 04/04/17 18:54 Dose: 2.5 mg Albuterol (Proventil Neb Soln) Confirm Administered Dose 2.5 mg .ROUTE .STK-MED ONE Stop: 04/04/17 18:58 Last Admin: 04/04/17 20:12 Dose: Not Given Aspirin (Halfprin) Confirm Administered Dose 81 mg .ROUTE .STK-MED ONE Stop: 04/05/17 14:14 Last Admin: 04/05/17 15:52 Dose: Not Given Enoxaparin Sodium (Lovenox) 160 mg SUBCUT Q12HR [facility] Last Admin: 04/05/17 08:23 Dose: 160 mg Enoxaparin Sodium (Lovenox) Confirm Administered Dose 160 mg .ROUTE .STK-MED ONE Stop: 04/04/17 21:46 Last Admin: 04/04/17 21:55 Dose: Not Given Enoxaparin Sodium (Lovenox) 160 mg SUBCUT BID [facility] Last Admin: 04/07/17 07:42 Dose: 160 mg Furosemide (Lasix) 60 mg PO DAILY [facility] Last Admin: 04/05/17 14:23 Dose: 60 mg Furosemide (Lasix) Confirm Administered Dose 20 mg .ROUTE .STK-MED ONE Stop: 04/05/17 14:13 Last Admin: 04/05/17 15:53 Dose: Not Given Furosemide (Lasix) Confirm Administered Dose 40 mg .ROUTE .STK-MED ONE Stop: 04/05/17 14:13 Last Admin: 04/05/17 15:52 Dose: Not Given Sodium Chloride (Normal Saline) 1,000 mls @ 500 mls/hr IV ASDIRECTED ONE Stop: 04/04/17 20:19 Last Admin: 04/04/17 21:36 Dose: 500 mls/hr Ketorolac Tromethamine (Toradol) 30 mg IVPUSH ONETIME ONE Stop: 04/04/17 19:14 Last Admin: 04/04/17 19:51 Dose: 30 mg Ketorolac Tromethamine (Toradol) Confirm Administered Dose 30 mg .ROUTE .STK- MED ONE Stop: 04/04/17 19:23 Last Admin: 04/04/17 19:49 Dose: Not Given Ketorolac Tromethamine (Toradol) 30 mg IVPUSH ONETIME ONE Stop: 04/05/17 05:54 Last Admin: 04/05/17 06:33 Dose: 30 mg Ketorolac Tromethamine (Toradol) Confirm Administered Dose 30 mg .ROUTE .STK- MED ONE Stop: 04/05/17 05:59 Last Admin: 04/05/17 06:30 Dose: Not Given Ketorolac Tromethamine (Toradol) Confirm Administered Dose 30 mg .ROUTE .STK- MED ONE Stop: 04/05/17 11:42 Last Admin: 04/05/17 11:45 Dose: 30 mg Metoclopramide HCl (Reglan) Confirm Administered Dose 10 mg .ROUTE .STK-MED ONE Stop: 04/05/17 14:15 Last Admin: 04/05/17 15:51 Dose: Not Given Metoprolol Succinate (Toprol Xl) Confirm Administered Dose 25 mg .ROUTE .STK- MED ONE Stop: 04/05/17 14:14 Last Admin: 04/05/17 15:51 Dose: Not Given Omeprazole (Omeprazole) Confirm Administered Dose 40 mg .ROUTE .STK-MED ONE Stop: 04/05/17 14:14 Last Admin: 04/05/17 15:52 Dose: Not Given Polyethylene Glycol (Miralax) 17 gm PO DAILY [facility] Polyethylene Glycol (Miralax) Confirm Administered Dose 17 gm .ROUTE .STK-MED ONE Stop: 04/05/17 14:16 Last Admin: 04/05/17 15:51 Dose: Not Given Tamsulosin HCl (Flomax) Confirm Administered Dose 0.8 mg .ROUTE .STK-MED ONE Stop: 04/05/17 14:14 Last Admin: 04/05/17 15:52 Dose: Not Given Warfarin Sodium (Coumadin) 7.5 mg PO ONETIME ONE Stop: 04/04/17 20:31 Last Admin: 04/04/17 21:39 Dose: 7.5 mg Warfarin Sodium (Coumadin) 3 mg PO DAILY@1800 [facility] Last Admin: 04/06/17 17:06 Dose: 3 mg - Exam General: Alert, Oriented HEENT: Pupils Equal, Pupils Reactive, EOMI, Mucous Membr. Moist/[place] Neck: Supple Lungs: Clear to Auscultation, Normal Respiratory Effort Cardiovascular: Regular Rate, Regular Rhythm GI/Abdominal Exam: Normal Bowel Sounds, Soft, Non-Tender, No Organomegaly, No Distention, No Abnormal Bruit, No Mass, Pelvis Stable Neurological: No New Focal Deficit Psy/Mental Status: Alert, Normal Affect, Normal Mood - Problem List Review Problem List Initiated/Reviewed/Updated: Yes - My Orders Last 24 Hours: My Active Orders 04/07/17 18:00 Warfarin [Coumadin] 2 mg PO DAILY@1800 04/08/17 07:00 INR,PT,PROTHROMBIN TIME [[facility]] Routine - Assessment Assessment:: Patient has a PE. - Plan Plan:: Patient's INR was 2.7 today. We will stop the Lovenox and will decrease his Coumadin to 2 mg today and check an INR tomorrow. Dr. Dumas will resume care in the AM.
[2017-04-07] MEDS ORDERED: Warfarin 2 MG Tab PO SCH (18:00)
[2017-04-07] MEDS: atorvaSTATin 20 MG Tab PO SCH (19:52)
[2017-04-08] MEDS: Omeprazole 40 MG Cap.CR PO SCH (06:18)
[2017-04-08] MEDS: Tamsulosin 0.4 MG Cap.ER PO SCH (07:38)
[2017-04-08] MEDS: Aspirin 81 MG Tab.Chew PO SCH (07:38)
[2017-04-08 07:39] VITALS: BP 151/81
[2017-04-08] MEDS: Furosemide 20 MG Tab PO SCH (07:39)
[2017-04-08] MEDS: Metoclopramide 10 MG Tab PO SCH (07:39)
[2017-04-08] MEDS: Metoprolol Succinate 25 MG Tab.ER PO SCH (07:39)
--- NOTE | 2017-04-08 14:29 | PCM.DCSUM1 ---
Discharge Summary - Discharge Data Discharge Date: 04/08/17 Discharge Disposition: Home, Self-Care 01 Condition: Good - Discharge Diagnosis/Problem(s) (1) Pulmonary embolism on right SNOMED Code(s): 09888171 ICD Code: I26.99 - OTHER PULMONARY EMBOLISM WITHOUT ACUTE COR PULMONALE Status: Acute Priority: High (2) Shortness of breath SNOMED Code(s): 546010735 ICD Code: R06.02 - SHORTNESS OF BREATH Status: Acute Priority: High (3) Headache SNOMED Code(s): 37197099 ICD Code: R51 - HEADACHE Status: Acute Qualifiers: Headache chronicity pattern: unspecified pattern (4) Diabetes mellitus SNOMED Code(s): 56079599 ICD Code: E11.9 - TYPE 2 DIABETES MELLITUS WITHOUT COMPLICATIONS Status: Chronic Priority: Medium Qualifiers: Diabetes mellitus type: type 2 Diabetes mellitus complication status: without complication Qualified Code(s): E11.9 - Type 2 diabetes mellitus without complications (5) Migraine SNOMED Code(s): 39186614 ICD Code: G43.909 - MIGRAINE, UNSP, NOT INTRACTABLE, WITHOUT STATUS MIGRAINOSUS Status: Chronic Priority: High Onset Date: 05/06/14 Problem Details: 10/02/15 - Migraine 12/14/2014 Cannot give Toradol as doing epidural tomorrow. Will give dilaudid and phenergan now. - Patient Instructions Diet: Usual Diet as Tolerated Activity: As Tolerated Driving: Do Not Drive - Discharge Plan Home Medications: Home Meds Aspirin 81 mg PO DAILY 05/26/15 [History] Omeprazole 40 mg PO ACBREAKFAST 05/26/15 [History] atorvaSTATin [Lipitor] 20 mg PO BEDTIME 05/26/15 [History] Cyclobenzaprine [Flexeril] 10 mg PO TID PRN 12/13/15 [History] Polyethylene Glycol 3350 [MiraLAX] 17 gm PO DAILY 12/13/15 [History] oxyCODONE HCl/Acetaminophen [oxyCODONE-Acetaminophen 5-325] 7.5 - 325 mg PO ASDIRECTED PRN 12/30/15 [History] Metoprolol Succinate [Toprol XL] 25 mg PO DAILY 05/25/16 [History] Furosemide [Furosemide] 20 mg PO DAILY 03/29/17 [History] Furosemide [Lasix] 60 mg PO DAILY 03/29/17 [History] Metoclopramide HCl [Reglan] 10 mg PO QID 03/29/17 [History] Tamsulosin HCl 0.8 mg PO DAILY 03/29/17 [History] Insulin Pump Syringe, 3 mL [Minimed Weedpatch] 1 each ASDIRECTED 04/04/17 [ History] Patient Handouts: Warfarin: What You Need to Know, Pulmonary Embolism Forms: ED Department Discharge Referrals: Daica Quiñonez, TECHNOLOGY TRAINING ASSOCIATE [Primary Care Provider] - - Discharge Summary/Plan Comment DC Time >30 min.: Yes Discharge Summary/Plan Comment: Counseled on rest and monitoring of PT/INR and f/u with coumadin clinic. Patient agrees with f/u in clinic as well. States breathing has improved greatly and denies any headache today. We will discharge with all regular meds and Coumadin at 2mg daily. Recheck INR this week as directed by Coumadin clinic. - Patient Data Vitals - Most Recent: Last Vital Signs Temp 36.8 C 04/08/17 08:00 Pulse 73 04/08/17 08:00 Resp 20 04/08/17 08:00 BP 151/81 H 04/08/17 08:00 Pulse Ox 97 04/08/17 08:00 Weight - Most Recent: 153.484 kg I&O - Last 24 hours: Intake & Output 04/07/17 04/08/17 04/08/17 22:59 06:59 14:59 Intake Total 554 Balance 554 Lab Results - Last 24 hrs: Laboratory Results - last 24 hr 04/08/17 Range/Units 07:00 Whole Blood INR 2.5 (1.0-3.5) Med Orders - Current: Current Medications Discontinued Medications Albuterol (Proventil Neb Soln) 2.5 mg NEB Q4H ONE Stop: 04/04/17 18:31 Last Admin: 04/04/17 18:54 Dose: 2.5 mg Albuterol (Proventil Neb Soln) Confirm Administered Dose 2.5 mg .ROUTE .STK-MED ONE Stop: 04/04/17 18:58 Last Admin: 04/04/17 20:12 Dose: Not Given Aspirin (Aspirin) 81 mg PO DAILY [facility] Last Admin: 04/08/17 07:38 Dose: 81 mg Aspirin (Halfprin) Confirm Administered Dose 81 mg .ROUTE .STK-MED ONE Stop: 04/05/17 14:14 Last Admin: 04/05/17 15:52 Dose: Not Given Atorvastatin Calcium (Lipitor) 20 mg PO BEDTIME [facility] Last Admin: 04/07/17 19:52 Dose: 20 mg Cyclobenzaprine HCl (Flexeril) 10 mg PO TID PRN PRN Reason: Muscle Spasm Enoxaparin Sodium (Lovenox) 160 mg SUBCUT Q12HR [facility] Last Admin: 04/05/17 08:23 Dose: 160 mg Enoxaparin Sodium (Lovenox) Confirm Administered Dose 160 mg .ROUTE .STK-MED ONE Stop: 04/04/17 21:46 Last Admin: 04/04/17 21:55 Dose: Not Given Enoxaparin Sodium (Lovenox) 160 mg SUBCUT BID [facility] Last Admin: 04/07/17 07:42 Dose: 160 mg Furosemide (Lasix) 60 mg PO DAILY [facility] Last Admin: 04/05/17 14:23 Dose: 60 mg Furosemide (Lasix) 20 mg PO DAILY [facility] Last Admin: 04/08/17 07:39 Dose: 20 mg Furosemide (Lasix) Confirm Administered Dose 20 mg .ROUTE .STK-MED ONE Stop: 04/05/17 14:13 Last Admin: 04/05/17 15:53 Dose: Not Given Furosemide (Lasix) Confirm Administered Dose 40 mg .ROUTE .STK-MED ONE Stop: 04/05/17 14:13 Last Admin: 04/05/17 15:52 Dose: Not Given Furosemide (Lasix) 60 mg PO DAILY@1200 [facility] Last Admin: 04/07/17 12:12 Dose: 60 mg Sodium Chloride (Normal Saline) 1,000 mls @ 500 mls/hr IV ASDIRECTED ONE Stop: 04/04/17 20:19 Last Admin: 04/04/17 21:36 Dose: 500 mls/hr Sodium Chloride (Normal Saline) 1,000 mls @ 65 mls/hr IV ASDIRECTED [facility] Last Admin: 04/06/17 20:56 Dose: 65 mls/hr Ketorolac Tromethamine (Toradol) 30 mg IVPUSH ONETIME ONE Stop: 04/04/17 19:14 Last Admin: 04/04/17 19:51 Dose: 30 mg Ketorolac Tromethamine (Toradol) Confirm Administered Dose 30 mg .ROUTE .STK- MED ONE Stop: 04/04/17 19:23 Last Admin: 04/04/17 19:49 Dose: Not Given Ketorolac Tromethamine (Toradol) 30 mg IVPUSH ONETIME ONE Stop: 04/05/17 05:54 Last Admin: 04/05/17 06:33 Dose: 30 mg Ketorolac Tromethamine (Toradol) Confirm Administered Dose 30 mg .ROUTE .STK- MED ONE Stop: 04/05/17 05:59 Last Admin: 04/05/17 06:30 Dose: Not Given Ketorolac Tromethamine (Toradol) Confirm Administered Dose 30 mg .ROUTE .STK- MED ONE Stop: 04/05/17 11:42 Last Admin: 04/05/17 11:45 Dose: 30 mg Ketorolac Tromethamine (Toradol) 30 mg IVPUSH Q6H PRN PRN Reason: Headache Stop: 04/10/17 11:52 Last Admin: 04/06/17 18:19 Dose: 30 mg Metoclopramide HCl (Reglan) 10 mg PO QID [facility] Last Admin: 04/08/17 07:39 Dose: 10 mg Metoclopramide HCl (Reglan) Confirm Administered Dose 10 mg .ROUTE .STK-MED ONE Stop: 04/05/17 14:15 Last Admin: 04/05/17 15:51 Dose: Not Given Metoprolol Succinate (Toprol Xl) 25 mg PO DAILY [facility] Last Admin: 04/08/17 07:39 Dose: 25 mg Metoprolol Succinate (Toprol Xl) Confirm Administered Dose 25 mg .ROUTE .STK- MED ONE Stop: 04/05/17 14:14 Last Admin: 04/05/17 15:51 Dose: Not Given Non-Formulary Medication (Insulin Pump Syringe, 3 Ml [Minimed Weedpatch]) 1 each ASDIRECTED [facility] Omeprazole (Omeprazole) 40 mg PO ACBREAKFAST [facility] Last Admin: 04/08/17 06:18 Dose: 40 mg Omeprazole (Omeprazole) Confirm Administered Dose 40 mg .ROUTE .STK-MED ONE Stop: 04/05/17 14:14 Last Admin: 04/05/17 15:52 Dose: Not Given Oxycodone/Acetaminophen (Percocet 325-5 Mg) 1 tab PO Q6H PRN PRN Reason: Pain Last Admin: 04/06/17 16:48 Dose: 1 tab Polyethylene Glycol (Miralax) 17 gm PO DAILY [facility] Polyethylene Glycol (Miralax) Confirm Administered Dose 17 gm .ROUTE .STK-MED ONE Stop: 04/05/17 14:16 Last Admin: 04/05/17 15:51 Dose: Not Given Polyethylene Glycol (Miralax) 17 gm PO DAILY PRN PRN Reason: Constipation Tamsulosin HCl (Flomax) 0.8 mg PO DAILY [facility] Last Admin: 04/08/17 07:38 Dose: 0.8 mg Tamsulosin HCl (Flomax) Confirm Administered Dose 0.8 mg .ROUTE .STK-MED ONE Stop: 04/05/17 14:14 Last Admin: 04/05/17 15:52 Dose: Not Given Warfarin Sodium (Coumadin) 7.5 mg PO ONETIME ONE Stop: 04/04/17 20:31 Last Admin: 04/04/17 21:39 Dose: 7.5 mg Warfarin Sodium (Coumadin) 3 mg PO DAILY@1800 [facility] Last Admin: 04/06/17 17:06 Dose: 3 mg Warfarin Sodium (Coumadin) 2 mg PO DAILY@1800 [facility] Last Admin: 04/07/17 17:47 Dose: 2 mg *Q Meaningful Use (DIS) - VTE *Q VTE Criteria *Q: - Stroke *Q Stroke Criteria *Q: - AMI *Q AMI Criteria *Q:
== END 2017-04-08 12:48 | disposition home or self-care (01) | DRG 176 ==
LOC: LB.ED 16:39 → LB.MS 17:05 → UNDOADMOB 20:00 → LB.MS 20:00 → OBSVTOIN 04-05 10:42
PROVIDERS: ADMIT Family Medicine; ATTEND Family Medicine
DX: I26.92 Saddle embolus of pulmonary artery without acute cor pulmonale (principal); I10 Essential (primary) hypertension; E11.9 Type 2 diabetes mellitus without complications; Z79.4 Long term (current) use of insulin; Z95.0 Presence of cardiac pacemaker; Z86.711 Personal history of pulmonary embolism; Z87.891 Personal history of nicotine dependence; Z96.41 Presence of insulin pump (external) (internal); R06.02 Shortness of breath; R07.9 Chest pain, unspecified; G43.909 Migraine, unspecified, not intractable, without status migrainosus; Z79.01 Long term (current) use of anticoagulants; E78.00 Pure hypercholesterolemia, unspecified; Z87.01 Personal history of pneumonia (recurrent); G47.30 Sleep apnea, unspecified; K59.09 Other constipation; K21.9 Gastro-esophageal reflux disease without esophagitis; M54.9 Dorsalgia, unspecified; G89.29 Other chronic pain; Z98.1 Arthrodesis status; Z87.11 Personal history of peptic ulcer disease; Z96.659 Presence of unspecified artificial knee joint; Z79.82 Long term (current) use of aspirin; Z91.018 Allergy to other foods; Z88.8 Allergy status to other drugs, medicaments and biological substances
CPT/HCPCS: 36415 ×2; 71010; 71260; 80053; 81241; 83880; 84484; 85025; 85379; 85610; 86038; 93005; 96372; 99220; 99285; A9270; J1650 ×2; J1885 ×2; J7040 ×2; 85730; 96361; 96374; 96376; G0378

== ENCOUNTER 2017-04-15 15:30 | Emergency (ER) | payer MEDICARE, BC ==
[2013-05-05 12:09] VITALS: BP 133/86
--- NOTE | 2017-04-15 15:36 | EDM.PDOC ---
ED HPI GENERAL MEDICAL PROBLEM - General Chief Complaint: Cardiovascular Problem Stated Complaint: chest pain Time Seen by Provider: 04/15/17 15:34 Source of Information: Reports: Patient History Limitations: Reports: No Limitations - History of Present Illness INITIAL COMMENTS - FREE TEXT/NARRATIVE: 71 yr male presents with left sided chest pain. States he was just at home and opening mail. States the pain to his left calf is gone and thinks he has another PE today. Pt is alert and talkative and in no acute distress. EKG ordered and NSR noted. Will obtain CBC, CMP, BNP, troponin, d-dimer. MS 2 mg IV given for the pain @353. Rates pain 7 on admit. States pain started about 1 hour ago and wraps around chest to shoulder blade. Onset: Today - Related Data Allergies Allergy/AdvReac Type Severity Reaction Status Date / Time coffee (Coffea arabica) Allergy Headache Verified 04/15/17 15:57 nifedipine [From Procardia] AdvReac Mild Constipatio Verified 04/15/17 15:57 n Home Meds: Home Meds Aspirin 81 mg PO DAILY 05/26/15 [History] Omeprazole 40 mg PO ACBREAKFAST 05/26/15 [History] atorvaSTATin [Lipitor] 20 mg PO BEDTIME 05/26/15 [History] Cyclobenzaprine [Flexeril] 10 mg PO TID PRN 12/13/15 [History] Polyethylene Glycol 3350 [MiraLAX] 17 gm PO DAILY 12/13/15 [History] oxyCODONE HCl/Acetaminophen [oxyCODONE-Acetaminophen 5-325] 7.5 - 325 mg PO ASDIRECTED PRN 12/30/15 [History] Metoprolol Succinate [Toprol XL] 25 mg PO DAILY 05/25/16 [History] Furosemide [Furosemide] 20 mg PO DAILY 03/29/17 [History] Furosemide [Lasix] 60 mg PO DAILY 03/29/17 [History] Metoclopramide HCl [Reglan] 10 mg PO QID 03/29/17 [History] Tamsulosin HCl 0.8 mg PO DAILY 03/29/17 [History] Insulin Pump Syringe, 3 mL [Minimed Schuyler] 1 each [facility] ASDIRECTED 04/04/17 [ History] Warfarin Sodium [Jantoven] 2 mg PO DAILY 04/15/17 [History] Past Medical History - Past Health History Medical/Surgical History: Denies Medical/Surgical History HEENT History: Reports: Cataract Cardiovascular History: Reports: High Cholesterol, Hypertension Other Cardiovascular History: Ablation in July, Respiratory History: Reports: PE, Pneumonia, Recurrent, Sleep Apnea Other Respiratory History: wears a cpap at night with oxygen at 5 LPM/NC Gastrointestinal History: Reports: Bowel Obstruction, Chronic Constipation, GERD , Other (See Below) Other Gastrointestinal History: duodenal ulcer Genitourinary History: Reports: Renal Calculus, Other (See Below) Other Genitourinary History: prostate stent placed 10/01/2016 Musculoskeletal History: Reports: Back Pain, Chronic Other Musculoskeletal History: Neck pain causing migraines Neurological History: Reports: Migraines Other Neuro History: Patient had vertebrae in neck fused very soon. Resolved some or of headaches. Psychiatric History: Reports: Depression, Emotional Problems Endocrine/Metabolic History: Reports: Diabetes, Type II, Obesity/BMI 30+ Other Endocrine/Metabolic History: pt has insulin pump Hematologic History: Reports: B12 Deficiency, Blood Transfusion(s) Oncologic (Cancer) History: Reports: None Dermatologic History: Reports: Other (See Below) Other Dermatologic History: Had pre-cancer lesion removed to R arm. Has lesion to L wrist. - Infectious Disease History Infectious Disease History: Reports: Chicken Pox, Measles, Mumps - Past Surgical History Head Surgeries/Procedures: Reports: None GI Surgical History: Reports: Colonoscopy, Hernia, Inguinal, Other (See Below) Male Surgical History: Reports: Kidney Stone Extraction, Lithotripsy ([facility]) Musculoskeletal Surgical History: Reports: Knee Replacement Social & Family History - Family History Family Medical History: Noncontributory HEENT: Reports: Cataract Cardiac: Reports: [place] Respiratory: Reports: COPD GI: Reports: None : Reports: None Endocrine/Metabolic: Reports: Diabetes, type II Oncologic: Reports: Brain, Colon, Lung - Tobacco Use Smoking Status *Q: Former Smoker Years of Tobacco use: 18 Used Tobacco, but Quit: Yes Month Tobacco Last Used: 12 Second Hand Smoke Exposure: No - Caffeine Use Caffeine Use: Reports: Coffee Other Caffeine Use: diet coke - 3-4 cans /day - Alcohol Use Days Per Week of Alcohol Use: 0 - Recreational Drug Use Recreational Drug Use: No - Living Situation & Occupation Living situation: Reports: Occupation: Unemployed ED ROS GENERAL - Review of Systems Review Of Systems: See Below Constitutional: Reports: Weakness HEENT: Reports: Glasses Respiratory: Reports: Shortness of Breath Cardiovascular: Reports: Chest Pain GI/Abdominal: Reports: No Symptoms Neurological: Reports: No Symptoms Psychiatric: Reports: Anxiety ED EXAM, GENERAL - Physical Exam Exam: See Below Exam Limited By: No Limitations General Appearance: Alert, Mild Distress Nose: Normal Inspection Throat/Mouth: Normal Inspection Head: Atraumatic Neck: Normal Inspection, Supple, Non-Tender Respiratory/Chest: Lungs Clear, Normal Breath Sounds Cardiovascular: Regular Rate, Rhythm Extremities: Normal Inspection, No Pedal Edema Neurological: Alert, Oriented Skin Exam: Warm, Dry, Normal Color EKG INTERPRETATION EKG Date: 04/15/17 Time: 15:36 Rhythm: NSR Rate (Beats/Min): 93 P-Wave: Present QRS: Normal ST-T: Normal Comparison: No Change Course - Vital Signs Last Recorded V/S: Last Vital Signs Temp 98.6 F 04/15/17 17:04 Pulse 95 04/15/17 17:04 Resp 22 H 04/15/17 17:04 BP 177/91 H 04/15/17 17:04 Pulse Ox 98 04/15/17 17:04 - Orders/Labs/Meds Orders: Active Orders 24 hr Category Date Time Status EKG Documentation Completion [RC] ASDIRECTED Care 04/15/17 15:37 Active Chest 1V Frontal [CR] Stat Exams 04/15/17 16:00 Taken Labs: Laboratory Tests 04/15/17 04/15/17 04/15/17 Range/Units 15:45 15:45 15:45 WBC 11.5 H D (4.0-11.0) K/uL RBC 4.86 (4.50-6.50) M/uL Hgb 14.0 (13.0-18.0) g/dL Hct 41.2 (40.0-54.0) % MCV 85 (76-96) fL MCH 28.8 (27.0-32.0) pg MCHC 34.0 (31.0-35.0) g/dL RDW 14.4 (11.0-16.0) % Plt Count 164 D (150-400) K/uL MPV 10.6 H (6.0-10.0) fL Neut % (Auto) 64.5 (45.0-70.0) % Lymph % (Auto) 26.0 (20.0-40.0) % [place] % (Auto) 7.8 (3.0-10.0) % Eos % (Auto) 1.2 (1.0-5.0) % Baso % (Auto) 0.5 (0.0-0.5) % Neut # (Auto) 7.44 (2.00-7.50) K/uL Lymph # (Auto) 3.00 (1.50-4.00) K/uL [place] # (Auto) 0.90 H (0.20-0.80) K/uL Eos # (Auto) 0.14 (0.04-0.40) K/uL Baso # (Auto) 0.06 (0.02-0.10) K/uL PT 50.9 H D (9.0-11.5) sec INR 5.5 H* D (1.0-3.5) D-Dimer, Quantitative (0-400) ng/mL Sodium 141 (136-145) mmol/L Potassium 3.7 (3.5-5.1) mmol/L Chloride 102 (98-107) mmol/L Carbon Dioxide 28.0 (21.0-32.0) mmol/L Anion Gap 14.7 (5.0-15.0) mmol/L BUN 36 H D (8-26) mg/dL Creatinine 1.62 H (0.70-1.30) mg/dL Est Cr Clr Drug Dosing TNP Estimated GFR (MDRD) 42 L (>60) MLS/MIN BUN/Creatinine Ratio 22.2 (6-25) Glucose 164 H D (74-100) mg/dL Calcium 8.8 (8.5-10.1) mg/dL Total Bilirubin 0.7 (0.0-1.0) mg/dL AST 14 L (15-37) U/L ALT 38 (12-78) U/L Alkaline Phosphatase 128 H (46-116) U/L Troponin I (0.000-0.060) ng/mL B-Natriuretic Peptide (0-125) pg/mL Total Protein 7.5 (6.4-8.2) g/dL Albumin 3.6 (3.4-5.0) g/dL Globulin 3.9 (2.2-4.2) g/dL Albumin/Globulin Ratio 0.9 (0.8-2.0) 04/15/17 04/15/17 Range/Units 15:45 15:45 WBC (4.0-11.0) K/uL RBC (4.50-6.50) M/uL Hgb (13.0-18.0) g/dL Hct (40.0-54.0) % MCV (76-96) fL MCH (27.0-32.0) pg MCHC (31.0-35.0) g/dL RDW (11.0-16.0) % Plt Count (150-400) K/uL MPV (6.0-10.0) fL Neut % (Auto) (45.0-70.0) % Lymph % (Auto) (20.0-40.0) % [place] % (Auto) (3.0-10.0) % Eos % (Auto) (1.0-5.0) % Baso % (Auto) (0.0-0.5) % Neut # (Auto) (2.00-7.50) K/uL Lymph # (Auto) (1.50-4.00) K/uL [place] # (Auto) (0.20-0.80) K/uL Eos # (Auto) (0.04-0.40) K/uL Baso # (Auto) (0.02-0.10) K/uL PT (9.0-11.5) sec INR (1.0-3.5) D-Dimer, Quantitative 1320 H (0-400) ng/mL Sodium (136-145) mmol/L Potassium (3.5-5.1) mmol/L Chloride (98-107) mmol/L Carbon Dioxide (21.0-32.0) mmol/L Anion Gap (5.0-15.0) mmol/L BUN (8-26) mg/dL Creatinine (0.70-1.30) mg/dL Est Cr Clr Drug Dosing Estimated GFR (MDRD) (>60) MLS/MIN BUN/Creatinine Ratio (6-25) Glucose (74-100) mg/dL Calcium (8.5-10.1) mg/dL Total Bilirubin (0.0-1.0) mg/dL AST (15-37) U/L ALT (12-78) U/L Alkaline Phosphatase (46-116) U/L Troponin I < 0.017 (0.000-0.060) ng/mL B-Natriuretic Peptide 132 H (0-125) pg/mL Total Protein (6.4-8.2) g/dL Albumin (3.4-5.0) g/dL Globulin (2.2-4.2) g/dL Albumin/Globulin Ratio (0.8-2.0) Meds: Medications Discontinued Medications Generic Name Dose Route Start Last Admin Trade Name Awilda PRN Reason Stop Dose Admin Morphine Sulfate Confirm 04/15/17 15:54 04/15/17 15:50 Morphine Administered 04/15/17 15:55 2 mg Dose Administration 2 mg .ROUTE .STK-MED ONE - Re-Assessments/Exams Free Text/Narrative Re-Assessment/Exam: 04/15/17 16:03 States pain is 5 now and shifting to lower rib area after the x- ray. SpO2=97%. Oxygen on at 2lpm N/C 04/15/17 17:20 LE pt states pain is resolved and now notices pain to tailbone worse than anything. Decrease coumadin to 1 mg po daily and return Saturday to coumadin clinic. Tomorrow for U/S of lower leg. Discharge to care of . Return if any chest pain or injury. Recommend use of oxygen at home, recommend chagne position slowly and use cane or walker in house to prevent any falls. Departure - Departure Time of Disposition: 17:20 Disposition: Home, Self-Care 01 Condition: Good Clinical Impression: Chest pain, Shortness of breath Referrals: Dacia Quiñonez SOCIAL MEDIA COMMUNITY MANAGER [Primary Care Provider] - Forms: ED Department Discharge - My Orders Last 24 Hours: My Active Orders 04/15/17 15:37 EKG Documentation Completion [RC] ASDIRECTED 04/15/17 16:00 Chest 1V Frontal [CR] Stat - Assessment/Plan Last 24 Hours: My Active Orders 04/15/17 15:37 EKG Documentation Completion [RC] ASDIRECTED 04/15/17 16:00 Chest 1V Frontal [CR] Stat
[2017-04-15] MEDS ORDERED: Morphine 2 MG/ML Syringe ONE (15:54)
[2017-04-15 17:12] VITALS: BP 177/91
--- NOTE | 2017-04-17 10:12 | CR ---
DATE OF SERVICE: 04/15/17 CLINICAL DATA: chest pain PORTABLE CHEST: Comparison is made to a prior exam dated 04/04/17. The exam is underpenetrated. The patient is in an apical lordotic position. The heart size is stable. The cardiac pacer and pacer wires remain unchanged in position. There are mild atelectatic changes in both lung bases. The lungs are otherwise clear. No pneumothorax. [id number] [facility]
== END 2017-04-15 17:20 | disposition home or self-care (01) ==
LOC: LB.ED 15:30
DX: R07.9 Chest pain, unspecified (principal); R06.02 Shortness of breath; I10 Essential (primary) hypertension; E78.00 Pure hypercholesterolemia, unspecified; G47.30 Sleep apnea, unspecified; K21.9 Gastro-esophageal reflux disease without esophagitis; E11.9 Type 2 diabetes mellitus without complications; Z99.81 Dependence on supplemental oxygen; Z87.891 Personal history of nicotine dependence; Z79.4 Long term (current) use of insulin; Z79.01 Long term (current) use of anticoagulants; Z79.899 Other long term (current) drug therapy; Z79.82 Long term (current) use of aspirin; Z88.8 Allergy status to other drugs, medicaments and biological substances; Z91.018 Allergy to other foods
CPT/HCPCS: 36415; 71010; 80053; 83880; 84484; 85025; 85379; 85610; 93005; 99285; J2270

== ENCOUNTER 2017-04-28 12:13 | Emergency (ER) | payer MEDICARE, BC ==
[2013-05-05 12:09] VITALS: BP 133/86
[2017-04-28] MEDS ORDERED: Ondansetron 4 MG Tab.DIS PO ONE (12:31)
[2017-04-28] MEDS ORDERED: Ketorolac 60 MG/2 ML SDV IM ONE (12:31)
[2017-04-28 12:46] VITALS: BP 148/75
--- NOTE | 2017-04-28 18:29 | ER ---
HISTORY OF PRESENT ILLNESS: A 71-year-old male here with complaints of a migraine headache that started this morning, it woke him up. The patient has history of migraines. He has not had any recent falls or injuries. The pain is on the left side of his head. He does have some sensitivity to light and noise and feels slightly nauseated. OBJECTIVE: GENERAL APPEARANCE: The patient is awake and alert. No obvious distress. VITAL SIGNS: Reviewed as listed. HEAD: Normocephalic. NECK: Supple. SKIN: Warm and dry. DIAGNOSIS: Migraine headache with history of the same. TREATMENT PLAN: Toradol 60 mg is given IM. I also gave the patient Zofran 4 mg, sublingual. He is to go home and rest today. He does have other medications at home, that he has used in the past, but they did not help him much today. He is to resume using them as directed and followup should be with his primary care provider as needed. JOSUE/ADRIANO /[id number]
== END 2017-04-28 12:40 | disposition home or self-care (01) ==
LOC: LB.ED 12:13
DX: G43.909 Migraine, unspecified, not intractable, without status migrainosus (principal)
CPT/HCPCS: 96372; 99283; A9270; J1885; 99282

== ENCOUNTER 2017-05-23 14:51 | Emergency (ER) | payer MEDICARE, BC ==
[2017-05-23] MEDS ORDERED: Ondansetron 4 MG Tab.DIS PO ONE (15:14)
[2017-05-23] MEDS ORDERED: Ondansetron 4 MG Tab.DIS ONE (15:22)
[2017-05-23 15:55] VITALS: BP 149/85
[2017-05-23] MEDS ORDERED: Sodium Chloride 0.9% 10 ML Syringe FLUSH PRN (16:06)
[2017-05-23] MEDS ORDERED: NS + KCl 20mEq/L 500 ML IV SCH (16:30)
--- NOTE | 2017-05-23 23:55 | CT ---
DATE OF SERVICE: 05/23/2017 CLINICAL DATA: Dizziness, syncope. UNENHANCED BRAIN CT: Multislice acquisition through the brain without IV contrast was performed. Comparison is made to a prior exam dated 08/15/2014. There is diffuse cerebral atrophy. There are periventricular lucencies bilaterally consistent with small vessel ischemic change. No masses or mass effect. No intracranial hemorrhage. No evidence of acute or subacute infarct. No osseous abnormalities. IMPRESSION: No acute intracranial abnormalities. [id number] [facility]
--- NOTE | 2017-05-25 17:18 | EDM.PDOC ---
ED HPI GENERAL MEDICAL PROBLEM - General Chief Complaint: Back Pain or Injury Stated Complaint: SHOULDER PAIN Time Seen by Provider: 05/23/17 15:30 Source of Information: Reports: Patient History Limitations: Reports: No Limitations - History of Present Illness INITIAL COMMENTS - FREE TEXT/NARRATIVE: This is a 71yo M here for a recent fall. states that he may have been out for a couple minutes. Patient denies hitting his head or any neck pain. Patient states this has happened a few times over the months and has been worked up without findings. Patient is alert and oriented and denies any amnesia or trouble concentrating. He does complain of a headache. He has frequent migraines and headaches but has been severe migraine free for months. Onset: Sudden Duration: Resolved Prior to Arrival Location: Reports: Head Improves with: Reports: None Worsens with: Reports: None Associated Symptoms: Reports: Headaches headache Pain Score (Numeric/FACES): 4 - Related Data Allergies Allergy/AdvReac Type Severity Reaction Status Date / Time coffee (Coffea arabica) Allergy Headache Verified 04/28/17 12:24 nifedipine [From Procardia] AdvReac Mild Constipatio Verified 04/28/17 12:24 n Home Meds: Home Meds Aspirin 81 mg PO DAILY 05/26/15 [History] Omeprazole 40 mg PO ACBREAKFAST 05/26/15 [History] atorvaSTATin [Lipitor] 20 mg PO BEDTIME 05/26/15 [History] Cyclobenzaprine [Flexeril] 10 mg PO TID PRN 12/13/15 [History] Polyethylene Glycol 3350 [MiraLAX] 17 gm PO DAILY 12/13/15 [History] oxyCODONE HCl/Acetaminophen [oxyCODONE-Acetaminophen 5-325] 7.5 - 325 mg PO ASDIRECTED PRN 12/30/15 [History] Metoprolol Succinate [Toprol XL] 25 mg PO DAILY 05/25/16 [History] Furosemide [Furosemide] 20 mg PO DAILY 03/29/17 [History] Furosemide [Lasix] 60 mg PO DAILY 03/29/17 [History] Metoclopramide HCl [Reglan] 10 mg PO QID 03/29/17 [History] Tamsulosin HCl 0.8 mg PO DAILY 03/29/17 [History] Insulin Pump Syringe, 3 mL [Minimed [place]] 1 each MC ASDIRECTED 04/04/17 [ History] Warfarin Sodium [Jantoven] 1 mg PO DAILY 04/15/17 [History] Past Medical History - Past Health History Medical/Surgical History: Denies Medical/Surgical History HEENT History: Reports: Cataract Cardiovascular History: Reports: High Cholesterol, Hypertension Other Cardiovascular History: Ablation in July, Respiratory History: Reports: PE, Pneumonia, Recurrent, Sleep Apnea Other Respiratory History: wears a cpap at night with oxygen at 5 LPM/NC Gastrointestinal History: Reports: Bowel Obstruction, Chronic Constipation, GERD , Other (See Below) Other Gastrointestinal History: duodenal ulcer Genitourinary History: Reports: Renal Calculus, Other (See Below) Other Genitourinary History: prostate stent placed 10/01/2016 Musculoskeletal History: Reports: Back Pain, Chronic Other Musculoskeletal History: Neck pain causing migraines Neurological History: Reports: Migraines Other Neuro History: Patient had vertebrae in neck fused very soon. Resolved some or of headaches. Psychiatric History: Reports: Depression, Emotional Problems Endocrine/Metabolic History: Reports: Diabetes, Type II, Obesity/BMI 30+ Other Endocrine/Metabolic History: pt has insulin pump Hematologic History: Reports: B12 Deficiency, Blood Transfusion(s) Oncologic (Cancer) History: Reports: None Dermatologic History: Reports: Other (See Below) Other Dermatologic History: Had pre-cancer lesion removed to R arm. Has lesion to L wrist. - Infectious Disease History Infectious Disease History: Reports: Chicken Pox, Measles, Mumps - Past Surgical History Head Surgeries/Procedures: Reports: None GI Surgical History: Reports: Colonoscopy, Hernia, Inguinal, Other (See Below) Male Surgical History: Reports: Kidney Stone Extraction, Lithotripsy (ESWL) Musculoskeletal Surgical History: Reports: Knee Replacement Social & Family History - Family History Family Medical History: Noncontributory HEENT: Reports: Cataract Cardiac: Reports: [place] Respiratory: Reports: COPD GI: Reports: None : Reports: None Endocrine/Metabolic: Reports: Diabetes, type II Oncologic: Reports: Brain, Colon, Lung - Tobacco Use Smoking Status *Q: Former Smoker Years of Tobacco use: 18 Used Tobacco, but Quit: Yes Month Tobacco Last Used: 12 Second Hand Smoke Exposure: No - Caffeine Use Caffeine Use: Reports: Coffee Other Caffeine Use: diet coke - 3-4 cans /day - Alcohol Use Days Per Week of Alcohol Use: 0 - Recreational Drug Use Recreational Drug Use: No - Living Situation & Occupation Living situation: Reports: Occupation: Unemployed ED ROS GENERAL - Review of Systems Review Of Systems: ROS reveals no pertinent complaints other than HPI. - Physical Exam Exam: See Below Exam Limited By: No Limitations General Appearance: Alert, WD/WN, No Apparent Distress Eye Exam: Bilateral Eye: EOMI, PERRL Ears: Normal External Exam Nose: Normal Inspection Throat/Mouth: Normal Inspection Head Exam: Atraumatic, Normocephalic Neck: Normal Inspection Respiratory/Chest: No Respiratory Distress, Lungs Clear, Normal Breath Sounds, No Accessory Muscle Use Cardiovascular: Normal Peripheral Pulses, Regular Rate, Rhythm GI/Abdominal: Normal Bowel Sounds, Other (morbid obesity) Neuro Exam (Abbreviated): Alert, Oriented, CN II-XII Intact, Normal Cognition, Normal Gait, Normal Reflexes, No Motor/Sensory Deficits Course - Vital Signs Last Recorded V/S: Last Vital Signs Temp 36.9 C 05/23/17 15:12 Pulse 86 05/23/17 15:55 Resp 20 05/23/17 15:12 BP 149/85 H 05/23/17 15:55 Pulse Ox 97 05/23/17 15:55 - Orders/Labs/Meds Labs: Laboratory Tests 05/23/17 05/23/17 Range/Units 15:20 15:20 WBC 10.3 (4.0-11.0) K/uL RBC 4.56 (4.50-6.50) M/uL Hgb 13.5 (13.0-18.0) g/dL Hct 39.2 L (40.0-54.0) % MCV 86 (76-96) fL MCH 29.6 (27.0-32.0) pg MCHC 34.4 (31.0-35.0) g/dL RDW 14.1 (11.0-16.0) % Plt Count 156 (150-400) K/uL MPV 10.4 H (6.0-10.0) fL Neut % (Auto) 60.2 (45.0-70.0) % Lymph % (Auto) 28.5 (20.0-40.0) % [place] % (Auto) 9.4 (3.0-10.0) % Eos % (Auto) 1.4 (1.0-5.0) % Baso % (Auto) 0.5 (0.0-0.5) % Neut # (Auto) 6.22 (2.00-7.50) K/uL Lymph # (Auto) 2.94 (1.50-4.00) K/uL [place] # (Auto) 0.97 H (0.20-0.80) K/uL Eos # (Auto) 0.14 (0.04-0.40) K/uL Baso # (Auto) 0.05 (0.02-0.10) K/uL Sodium 135 L (136-145) mmol/L Potassium 3.3 L (3.5-5.1) mmol/L Chloride 98 (98-107) mmol/L Carbon Dioxide 28.0 (21.0-32.0) mmol/L Anion Gap 12.3 (5.0-15.0) mmol/L BUN 22 D (8-26) mg/dL Creatinine 1.57 H (0.70-1.30) mg/dL Est Cr Clr Drug Dosing 48.74 mL/min Estimated GFR (MDRD) 44 L (>60) MLS/MIN BUN/Creatinine Ratio 14.0 (6-25) Glucose 177 H D (74-100) mg/dL Calcium 8.4 L (8.5-10.1) mg/dL Total Bilirubin 0.8 (0.0-1.0) mg/dL AST 18 (15-37) U/L ALT 27 (12-78) U/L Alkaline Phosphatase 103 (46-116) U/L Troponin I < 0.017 (0.000-0.060) ng/mL B-Natriuretic Peptide 66 D (0-125) pg/mL Total Protein 7.2 (6.4-8.2) g/dL Albumin 3.4 (3.4-5.0) g/dL Globulin 3.8 (2.2-4.2) g/dL Albumin/Globulin Ratio 0.9 (0.8-2.0) TSH, Ultra Sensitive 2.706 D (0.358-3.740) uIU/mL Meds: Medications Discontinued Medications Generic Name Dose Route Start Last Admin Trade Name Freq PRN Reason Stop Dose Admin Potassium Chloride/Sodium Chloride 500 mls @ 500 mls/hr 05/23/17 16:30 15:30 Normal Saline With 20 Meq Kcl IV 500 mls/hr ASDIRECTED ZEV Administration Meclizine HCl 25 mg 05/23/17 15:15 05/23/17 15:20 Antivert PO 25 mg Q6H PRN Administration Dizziness Meclizine HCl Confirm 05/23/17 15:23 Antivert Administered 05/23/17 15:24 Dose 25 mg .ROUTE .STK-MED ONE Ondansetron HCl 4 mg 05/23/17 15:14 05/23/17 15:20 Zofran Odt PO 05/23/17 15:15 4 mg ONETIME ONE Administration Ondansetron HCl Confirm 05/23/17 15:22 Zofran Odt Administered 05/23/17 15:23 Dose 4 mg .ROUTE .STK-MED ONE Sodium Chloride 10 ml 05/23/17 16:06 05/23/17 16:32 Saline Flush FLUSH 10 ml ASDIRECTED PRN Administration Keep Vein Open Departure - Departure Time of Disposition: 16:50 Disposition: Home, Self-Care 01 Condition: Good Clinical Impression: Syncope and collapse - Discharge Information Instructions: Blurred Vision, Serving Sizes, Rehydration, Adult, Exercising to Lose Weight, Visual Disturbances, Calorie Counting for Weight Loss, Migraine Headache Referrals: Hugo Dumas MD [Primary Care Provider] - Forms: ED Department Discharge Additional Instructions: Follow up in the clinic next week. Stop taking the narcotics for the migraines, as soon as you get the feelings take the excedrin and use the ice pack, lay down in the dark and get some rest. Discussed close monitoring and BP checks. Discussed slow gradual rise from laying to sitting to standing. Discussed close monitoring of sugars and BP. Patient will f/u in clinic for further management and workup as directed. Patient agrees with f/u in clinic for further referral - likely neurology and further management. Patient should not drive - advised.
== END 2017-05-23 17:55 | disposition home or self-care (01) ==
LOC: LB.ED 14:51
DX: R55 Syncope and collapse (principal); G43.909 Migraine, unspecified, not intractable, without status migrainosus; Z87.891 Personal history of nicotine dependence; E11.9 Type 2 diabetes mellitus without complications; I10 Essential (primary) hypertension; E78.00 Pure hypercholesterolemia, unspecified; Z79.01 Long term (current) use of anticoagulants; Z79.4 Long term (current) use of insulin; Z79.82 Long term (current) use of aspirin; Z79.899 Other long term (current) drug therapy; Z91.018 Allergy to other foods; Z88.8 Allergy status to other drugs, medicaments and biological substances
CPT/HCPCS: 36415; 70450; 80053; 83880; 84443; 84484; 85025; 93005; 96360; 96361; 99284; A0425; A0429; A9270; J3480; J7050

== ENCOUNTER 2017-06-30 13:54 | Emergency (ER) | payer MEDICARE, BC ==
[2013-05-05 12:09] VITALS: BP 133/86
[2017-06-30] MEDS ORDERED: Ondansetron 4 MG Tab.DIS PO ONE (14:21)
[2017-06-30] MEDS ORDERED: Ketorolac 60 MG/2 ML SDV IM ONE (14:21)
[2017-06-30 15:43] VITALS: BP 153/85
--- NOTE | 2017-06-30 19:34 | ER ---
HISTORY OF PRESENT ILLNESS: A 71-year-old male here with complaints of a migraine headache that started yesterday. The patient tells me that he does have oxycodone he takes occasionally at home for migraines. He took one this morning several hours ago, but it is not doing enough for his migraine. He states this is a typical migraine. He has not had any recent falls or injuries. The patient has longstanding history of migraine headaches. OBJECTIVE: GENERAL APPEARANCE: The patient is awake and alert. No respiratory distress. He is bothered by the bright lights which we turned down. VITAL SIGNS: Reviewed as listed. LUNGS: Clear. CARDIAC: Heart sounds distinct without murmurs. HEAD: Normocephalic. SKIN: Warm and dry. DIAGNOSIS: Migraine headache with history of migraine headaches. TREATMENT PLAN: Toradol 60 mg will be given IM. We also gave Zofran 4 mg sublingually. We monitored the patient for about 30 minutes and he is feeling better. The patient is then discharged to go home. He is to sleep. He can continue with his oxycodone as needed today and recheck should be with his primary care provider over the next day or two if his symptoms have not resolved or as needed. CRS/MODL /[id number]
== END 2017-06-30 14:47 | disposition home or self-care (01) ==
LOC: LB.ED 13:54
DX: G43.909 Migraine, unspecified, not intractable, without status migrainosus (principal)
CPT/HCPCS: 96372; 99283; A9270; J1885

== ENCOUNTER 2017-07-30 01:01 | Emergency (ER) | payer MEDICARE, BC ==
[2017-07-30] MEDS: Nitroglycerin 0.4 MG Tab.SL SL ONE (01:25)
[2017-07-30] MEDS ORDERED: Sodium Chloride 0.9% 10 ML Syringe FLUSH PRN (01:30)
[2017-07-30] MEDS ORDERED: Nitroglycerin 0.4 MG Tab.SL SL PRN (01:30)
--- NOTE | 2017-07-30 01:39 | EDM.PDOC ---
ED HPI GENERAL MEDICAL PROBLEM - General Chief Complaint: Chest Pain Stated Complaint: ARM PAIN Time Seen by Provider: 07/30/17 01:15 Source of Information: Reports: Patient, Family, RN History Limitations: Reports: No Limitations - History of Present Illness INITIAL COMMENTS - FREE TEXT/NARRATIVE: 71 yr male presents with left sided chest pain, with pain into neck and into upper back. States he has had a headache today and didn't take any nitro because of this. Rates pain a 9. States 8 after nitro 1 tablet given. BP 130/ 70 after nitro. No diaphoresis, pt alert and no acute distress. Labs ordered. EKG reviewed and NSR no ST changes noted. - Related Data Allergies Allergy/AdvReac Type Severity Reaction Status Date / Time coffee (Coffea arabica) Allergy Headache Verified 06/30/17 14:09 nifedipine [From Procardia] AdvReac Mild Constipatio Verified 06/30/17 14:09 n Home Meds: Home Meds Aspirin 81 mg PO DAILY 05/26/15 [History] Omeprazole 40 mg PO ACBREAKFAST 05/26/15 [History] atorvaSTATin [Lipitor] 20 mg PO BEDTIME 05/26/15 [History] Cyclobenzaprine [Flexeril] 10 mg PO TID PRN 12/13/15 [History] Polyethylene Glycol 3350 [MiraLAX] 17 gm PO DAILY 12/13/15 [History] oxyCODONE HCl/Acetaminophen [oxyCODONE-Acetaminophen 5-325] 7.5 - 325 mg PO ASDIRECTED PRN 12/30/15 [History] Metoprolol Succinate [Toprol XL] 25 mg PO DAILY 05/25/16 [History] Furosemide [Furosemide] 20 mg PO DAILY 03/29/17 [History] Furosemide [Lasix] 60 mg PO DAILY 03/29/17 [History] Metoclopramide HCl [Reglan] 10 mg PO QID 03/29/17 [History] Tamsulosin HCl 0.8 mg PO DAILY 03/29/17 [History] Insulin Pump Syringe, 3 mL [Minimed [place]] 1 each MC ASDIRECTED 04/04/17 [ History] Warfarin Sodium [Jantoven] 1 mg PO DAILY 04/15/17 [History] Past Medical History - Past Health History Medical/Surgical History: Denies Medical/Surgical History HEENT History: Reports: Cataract Cardiovascular History: Reports: High Cholesterol, Hypertension Other Cardiovascular History: Ablation in July, Respiratory History: Reports: PE, Pneumonia, Recurrent, Sleep Apnea Other Respiratory History: wears a cpap at night with oxygen at 5 LPM/[place] Gastrointestinal History: Reports: Bowel Obstruction, Chronic Constipation, GERD , Other (See Below) Other Gastrointestinal History: duodenal ulcer Genitourinary History: Reports: Renal Calculus, Other (See Below) Other Genitourinary History: prostate stent placed 10/01/2016 Musculoskeletal History: Reports: Back Pain, Chronic Other Musculoskeletal History: Neck pain causing migraines Neurological History: Reports: Migraines Other Neuro History: Patient had vertebrae in neck fused very soon. Resolved some or of headaches. Psychiatric History: Reports: Depression, Emotional Problems Endocrine/Metabolic History: Reports: Diabetes, Type II, Obesity/BMI 30+ Other Endocrine/Metabolic History: pt has insulin pump Hematologic History: Reports: B12 Deficiency, Blood Transfusion(s) Oncologic (Cancer) History: Reports: None Dermatologic History: Reports: Other (See Below) Other Dermatologic History: Had pre-cancer lesion removed to R arm. Has lesion to L wrist. - Infectious Disease History Infectious Disease History: Reports: Chicken Pox, Measles, Mumps - Past Surgical History Head Surgeries/Procedures: Reports: None GI Surgical History: Reports: Colonoscopy, Hernia, Inguinal, Other (See Below) Male Surgical History: Reports: Kidney Stone Extraction, Lithotripsy (ESWL) Musculoskeletal Surgical History: Reports: Knee Replacement Social & Family History - Family History Family Medical History: Noncontributory HEENT: Reports: Cataract Cardiac: Reports: [place] Respiratory: Reports: COPD GI: Reports: None : Reports: None Endocrine/Metabolic: Reports: Diabetes, type II Oncologic: Reports: Brain, Colon, Lung - Tobacco Use Smoking Status *Q: Former Smoker Years of Tobacco use: 18 Used Tobacco, but Quit: Yes Month Tobacco Last Used: 12 Second Hand Smoke Exposure: No - Caffeine Use Caffeine Use: Reports: Coffee Other Caffeine Use: diet coke - 3-4 cans /day - Alcohol Use Days Per Week of Alcohol Use: 0 - Recreational Drug Use Recreational Drug Use: No - Living Situation & Occupation Living situation: Reports: Occupation: Unemployed ED ROS GENERAL - Review of Systems Review Of Systems: See Below Constitutional: Reports: No Symptoms HEENT: Reports: Other (headache) Respiratory: Reports: No Symptoms Cardiovascular: Reports: Chest Pain GI/Abdominal: Reports: No Symptoms Musculoskeletal: Reports: Neck Pain Skin: Reports: No Symptoms Neurological: Reports: Headache Psychiatric: Reports: No Symptoms Hematologic/Lymphatic: Reports: Other (just started xarelto) ED EXAM, GENERAL - Physical Exam Exam: See Below Exam Limited By: No Limitations General Appearance: Alert, No Apparent Distress Ears: Hearing Grossly Normal Nose: Normal Inspection Throat/Mouth: Normal Inspection, Normal Voice, No Airway Compromise Head: Atraumatic, Normocephalic Neck: Supple, Non-Tender Respiratory/Chest: No Respiratory Distress, Lungs Clear, Normal Breath Sounds Cardiovascular: Normal Peripheral Pulses, Regular Rate, Rhythm, No Edema GI/Abdominal: Soft, Non-Tender Extremities: Non-Tender, Normal Capillary Refill Neurological: Alert, Oriented, Normal Cognition Skin Exam: Warm, Dry, Normal Color Course - Vital Signs Last Recorded V/S: Last Vital Signs Temp 98.1 F 07/30/17 01:03 Pulse 91 07/30/17 01:03 Resp 12 07/30/17 01:03 BP 160/70 H 07/30/17 01:25 Pulse Ox 95 07/30/17 01:03 - Orders/Labs/Meds Orders: Active Orders 24 hr Category Date Time Status Cardiac Monitoring [RC] .As Directed Care 07/30/17 01:30 Ordered EKG Documentation Completion [RC] ASDIRECTED Care 07/30/17 01:32 Ordered Nitroglycerin [Nitrostat] Med 07/30/17 01:30 Ordered 0.4 mg SL Q5M PRN Sodium Chloride 0.9% [Saline Flush] Med 07/30/17 01:30 Ordered 10 ml FLUSH ASDIRECTED PRN Saline Lock Insert [OM.PC] Stat Oth 07/30/17 01:30 Ordered Medication Orders Nitroglycerin (Nitrostat) 0.4 mg SL Q5M PRN PRN Reason: Chest Pain Stop: 07/31/17 01:31 Sodium Chloride (Saline Flush) 10 ml FLUSH ASDIRECTED PRN PRN Reason: Keep Vein Open Labs: Laboratory Tests 07/30/17 07/30/17 Range/Units 01:40 01:40 WBC 9.6 (4.0-11.0) K/uL RBC 4.48 L (4.50-6.50) M/uL Hgb 12.8 L (13.0-18.0) g/dL Hct 37.8 L (40.0-54.0) % MCV 84 (76-96) fL MCH 28.6 (27.0-32.0) pg MCHC 33.9 (31.0-35.0) g/dL RDW 13.5 (11.0-16.0) % Plt Count 159 (150-400) K/uL MPV 11.3 H (6.0-10.0) fL Neut % (Auto) 59.3 (45.0-70.0) % Lymph % (Auto) 28.8 (20.0-40.0) % [place] % (Auto) 9.0 (3.0-10.0) % Eos % (Auto) 2.2 (1.0-5.0) % Baso % (Auto) 0.7 H (0.0-0.5) % Neut # (Auto) 5.67 (2.00-7.50) K/uL Lymph # (Auto) 2.76 (1.50-4.00) K/uL [place] # (Auto) 0.86 H (0.20-0.80) K/uL Eos # (Auto) 0.21 (0.04-0.40) K/uL Baso # (Auto) 0.07 (0.02-0.10) K/uL Sodium 136 (136-145) mmol/L Potassium 3.6 (3.5-5.1) mmol/L Chloride 100 (98-107) mmol/L Carbon Dioxide 25.4 (21.0-32.0) mmol/L Anion Gap 14.2 (5.0-15.0) mmol/L BUN 15 (8-26) mg/dL Creatinine 1.62 H (0.70-1.30) mg/dL Est Cr Clr Drug Dosing 47.24 mL/min Estimated GFR (MDRD) 42 L (>60) MLS/MIN BUN/Creatinine Ratio 9.3 (6-25) Glucose 195 H D (74-100) mg/dL Calcium 8.4 L (8.5-10.1) mg/dL Total Bilirubin 0.7 (0.0-1.0) mg/dL AST 27 (15-37) U/L ALT 39 (12-78) U/L Alkaline Phosphatase 104 (46-116) U/L Troponin I < 0.017 (0.000-0.060) ng/mL Total Protein 6.8 (6.4-8.2) g/dL Albumin 3.2 L (3.4-5.0) g/dL Globulin 3.6 (2.2-4.2) g/dL Albumin/Globulin Ratio 0.9 (0.8-2.0) Meds: Medications Generic Name Dose Route Start Last Admin Trade Name Freq PRN Reason Stop Dose Admin Nitroglycerin 0.4 mg 07/30/17 01:30 Nitrostat SL 07/31/17 01:31 Q5M PRN Chest Pain Sodium Chloride 10 ml 07/30/17 01:30 Saline Flush FLUSH ASDIRECTED PRN Keep Vein Open Discontinued Medications Generic Name Dose Route Start Last Admin Trade Name Freq PRN Reason Stop Dose Admin Morphine Sulfate Confirm 07/30/17 02:04 Morphine Administered 07/30/17 02:05 Dose 10 mg .ROUTE .STK-MED ONE Nitroglycerin 0.4 mg 07/30/17 01:30 07/30/17 01:25 Nitrostat SL 07/30/17 01:31 0.4 mg ONETIME ONE Administration - Re-Assessments/Exams Free Text/Narrative Re-Assessment/Exam: 07/30/17 02:07 MS 2 mg IV given. States pain is about 5 now. States arm isn' t hurting as bad. Pain was going down left arm upon admit and now pain is about 6 inches down left arm. States pain is getting better. 2:11 pain is about 3 now. States pain is just noticeable. States pain to arm is about gone and now pain to neck only. Ice pack was applied to neck too. 07/30/17 02:27 Pt states no more pain. Reviewed lab results with pt and . Troponins are negative. Lab results are at baseline for pt. Blood sugar 195. States it was higher at hs and was 75 at supper time. Pt was just discharged from [facility] yesterday and no chest pain until about 8pm. 07/30/17 02:32 Pt to be discharged to care of . states comfortable taking pt home and pt states he would like to go home. States he wears the CPAP at night and uses oxygen at night. Pt sitting up as buttocks getting sore. Pt to continue home medications as discharged from hospital. May use Oxycodone 5 mg every 4-6 hr as needed for neck and head pain. Pt has tylenol at home he can take too. Recommend use of ice to neck or back as needed for pain. Follow-up with PCP in clinic on . Pt and state understanding. Departure - Departure Time of Disposition: 02:40 Disposition: Home, Self-Care 01 Condition: Good Clinical Impression: Atypical chest pain Forms: ED Department Discharge - My Orders Last 24 Hours: My Active Orders 07/30/17 01:30 Cardiac Monitoring [RC] .As Directed Nitroglycerin [Nitrostat] 0.4 mg SL Q5M PRN Sodium Chloride 0.9% [Saline Flush] 10 ml FLUSH ASDIRECTED PRN Saline Lock Insert [OM.PC] Stat 07/30/17 01:32 EKG Documentation Completion [RC] ASDIRECTED - Assessment/Plan Last 24 Hours: My Active Orders 07/30/17 01:30 Cardiac Monitoring [RC] .As Directed Nitroglycerin [Nitrostat] 0.4 mg SL Q5M PRN Sodium Chloride 0.9% [Saline Flush] 10 ml FLUSH ASDIRECTED PRN Saline Lock Insert [OM.PC] Stat 07/30/17 01:32 EKG Documentation Completion [RC] ASDIRECTED
[2017-07-30] MEDS: Morphine 10 MG/ML Syringe ONE (02:00)
[2017-07-30 02:55] VITALS: BP 139/70
== END 2017-07-30 02:35 | disposition home or self-care (01) ==
LOC: LB.ED 01:01
DX: R07.89 Other chest pain (principal); I10 Essential (primary) hypertension; E78.00 Pure hypercholesterolemia, unspecified; E11.9 Type 2 diabetes mellitus without complications; E66.9 Obesity, unspecified; Z87.891 Personal history of nicotine dependence; Z88.8 Allergy status to other drugs, medicaments and biological substances; Z79.82 Long term (current) use of aspirin; Z79.899 Other long term (current) drug therapy
CPT/HCPCS: 36415; 80053; 84484; 85025; 93005; 99284; 99285-25; J2270

== ENCOUNTER 2017-08-03 15:25 | Emergency (ER) | payer MEDICARE, BC ==
[2013-05-05 12:09] VITALS: BP 133/86
[2017-08-03] MEDS ORDERED: HYDROmorphone 2 MG/ML Syringe IM ONE (15:50)
[2017-08-03] MEDS ORDERED: Ondansetron 4 MG Tab.DIS PO ONE (15:51)
[2017-08-03] MEDS ORDERED: HYDROmorphone 4 MG/ML Syringe ONE (15:56)
[2017-08-03] MEDS ORDERED: Ondansetron 4 MG Tab.DIS ONE (15:56)
--- NOTE | 2017-08-03 16:27 | ER ---
HISTORY OF PRESENT ILLNESS: A 71-year-old male here with complaints of a migraine headache on the left side. The patient states this started about 3 days ago. He has extensive history of migraine headaches. He tells me that this one is a typical migraine for him. He has not had any recent falls or injuries. The patient states he was recently in the hospital in [place] for a syncopal episode and some atypical chest pain. 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 OBJECTIVE: GENERAL APPEARANCE: The patient is awake and alert. No obvious distress. Vital signs are reviewed as listed. HEENT physical exam, the patient is normocephalic. Oral mucous membranes moist. Tonsils not enlarged or injected. Pharynx not inflamed. Neck is supple. There is tenderness with lateral rotation bilaterally. Skin is warm and dry. DIAGNOSIS: Migraine headache with history of the same. TREATMENT PLAN: Dilaudid 2 mg will be given IM. The patient also will be given Zofran 4 mg sublingual. He is to go home with his driving him home and get rest after he is monitored here for 15-to-20 minutes. Followup should be with his primary care provider as needed. JOSUE/ADRIANO /[id number]
[2017-08-03 18:44] VITALS: BP 134/69
== END 2017-08-03 16:10 | disposition home or self-care (01) ==
LOC: LB.ED 15:25
DX: G43.909 Migraine, unspecified, not intractable, without status migrainosus (principal)
CPT/HCPCS: 96372; 99283; A9270; J1170

== ENCOUNTER 2017-09-09 14:49 | Observation (INO) | payer MEDICARE, BC ==
--- NOTE | 2017-09-09 15:05 | EDM.PDOC ---
ED HPI GENERAL MEDICAL PROBLEM - General Chief Complaint: Chest Pain Stated Complaint: CHEST PAIN Time Seen by Provider: 09/09/17 15:04 Source of Information: Reports: Patient, Family History Limitations: Reports: No Limitations - History of Present Illness INITIAL COMMENTS - FREE TEXT/NARRATIVE: 71 yr male presents with chest pain, midsternal and rates it 12/10. States he took nitro X 3 at home with no relief of pain. States his blood sugars have been good and had a recent visit to pulmonology and had some medication changes. He takes Eliquis and Plavix, metoprolol and Imdur. No diaphoresis noted and pt is calm with HOB elevated. EKG completed and NSR noted. ASA given for chest pain protocol. Labs ordered for ACS. Onset: Today Onset Date: 09/09/17 Chest Pain Score (Numeric/FACES): 4 - Related Data Allergies Allergy/AdvReac Type Severity Reaction Status Date / Time coffee (Coffea arabica) Allergy Headache Verified 09/09/17 15:34 nifedipine [From Procardia] AdvReac Mild Constipatio Verified 09/09/17 15:34 n Home Meds: Home Meds Omeprazole 20 mg PO ACBREAKFAST 05/26/15 [History] atorvaSTATin [Lipitor] 20 mg PO BEDTIME 05/26/15 [History] Cyclobenzaprine [Flexeril] 10 mg PO TID PRN 12/13/15 [History] Polyethylene Glycol 3350 [MiraLAX] 17 gm PO DAILY PRN 12/13/15 [History] Metoprolol Succinate [Toprol XL] 25 mg PO DAILY 05/25/16 [History] Furosemide 20 mg PO QAM 03/29/17 [History] Furosemide [Lasix] 60 mg PO DAILY@1200 03/29/17 [History] Metoclopramide HCl [Reglan] 10 mg PO QID 03/29/17 [History] Tamsulosin HCl 0.8 mg PO DAILY 03/29/17 [History] Insulin Pump Syringe, 3 mL [Minimed [place]] 1 each MC ASDIRECTED 04/04/17 [ History] Clopidogrel [Plavix] 75 mg PO DAILY 09/09/17 [History] Isosorbide Mononitrate [Isosorbide Mononitrate ER] 60 mg PO DAILY 09/09/17 [ History] Meclizine [Antivert] 25 mg PO TID PRN 09/09/17 [History] Melatonin 3 mg PO DAILY@2130 09/09/17 [History] Methocarbamol 750 mg PO QID PRN 09/09/17 [History] Nitroglycerin [Nitrostat] 0.4 mg SL ASDIRECTED 09/09/17 [History] Rivaroxaban [Xarelto] 15 mg PO DAILY 09/09/17 [History] oxyCODONE HCl/Acetaminophen [oxyCODONE-Acetaminophen 5-325] 1 - 2 tab PO Q6H PRN 09/09/17 [History] Past Medical History - Past Health History Medical/Surgical History: Denies Medical/Surgical History HEENT History: Reports: Cataract Cardiovascular History: Reports: High Cholesterol, Hypertension Other Cardiovascular History: Ablation in July,, angiogram 07/25/2017 Respiratory History: Reports: PE, Pneumonia, Recurrent, Sleep Apnea Other Respiratory History: wears a cpap at night with oxygen at 5 LPM/NC Gastrointestinal History: Reports: Bowel Obstruction, Chronic Constipation, GERD , Other (See Below) Other Gastrointestinal History: duodenal ulcer Genitourinary History: Reports: Renal Calculus, Other (See Below) Other Genitourinary History: prostate stent placed 10/01/2016 Musculoskeletal History: Reports: Back Pain, Chronic Other Musculoskeletal History: Neck pain causing migraines Neurological History: Reports: Migraines Other Neuro History: Patient had vertebrae in neck fused very soon. Resolved some or of headaches. Psychiatric History: Reports: Depression, Emotional Problems Endocrine/Metabolic History: Reports: Diabetes, Type II, Obesity/BMI 30+ Other Endocrine/Metabolic History: pt has insulin pump Hematologic History: Reports: B12 Deficiency, Blood Transfusion(s) Oncologic (Cancer) History: Reports: None Dermatologic History: Reports: Other (See Below) Other Dermatologic History: Had pre-cancer lesion removed to R arm. Has lesion to L wrist. - Infectious Disease History Infectious Disease History: Reports: Chicken Pox, Measles, Mumps - Past Surgical History Head Surgeries/Procedures: Reports: None GI Surgical History: Reports: Colonoscopy, Hernia, Inguinal, Other (See Below) Male Surgical History: Reports: Kidney Stone Extraction, Lithotripsy ([facility]) Musculoskeletal Surgical History: Reports: Knee Replacement Social & Family History - Family History Family Medical History: Noncontributory HEENT: Reports: Cataract Cardiac: Reports: ME Respiratory: Reports: COPD GI: Reports: None : Reports: None Endocrine/Metabolic: Reports: Diabetes, type II Oncologic: Reports: Brain, Colon, Lung - Tobacco Use Smoking Status *Q: Never Smoker Years of Tobacco use: 18 Used Tobacco, but Quit: Yes Month/Year Tobacco Last Used: 12 Second Hand Smoke Exposure: No - Caffeine Use Caffeine Use: Reports: None Other Caffeine Use: diet coke - 3-4 cans /day - Alcohol Use Days Per Week of Alcohol Use: 0 - Recreational Drug Use Recreational Drug Use: No - Living Situation & Occupation Living situation: Reports: Occupation: Unemployed ED ROS GENERAL - Review of Systems Review Of Systems: See Below Constitutional: Reports: No Symptoms HEENT: Reports: Glasses Respiratory: Reports: No Symptoms Cardiovascular: Reports: Chest Pain Endocrine: Reports: Other (diabetic) GI/Abdominal: Reports: No Symptoms : Reports: No Symptoms Musculoskeletal: Reports: No Symptoms Skin: Reports: No Symptoms Neurological: Reports: No Symptoms Psychiatric: Reports: No Symptoms Hematologic/Lymphatic: Reports: No Symptoms Immunologic: Reports: No Symptoms ED EXAM, GENERAL - Physical Exam Exam: See Below Exam Limited By: No Limitations General Appearance: Alert, No Apparent Distress Ears: Hearing Grossly Normal Ear Exam: Bilateral Ear: Auricle Normal Nose: Normal Inspection. No: Nasal Tenderness, Nasal Drainage Throat/Mouth: Normal Inspection, Normal Voice, No Airway Compromise Head: Atraumatic, Normocephalic. No: Sinus Tenderness Neck: Supple, Non-Tender Respiratory/Chest: No Respiratory Distress, Lungs Clear, Normal Breath Sounds Cardiovascular: Normal Peripheral Pulses, Regular Rate, Rhythm, No Edema Peripheral Pulses: 2+: Dorsalis Pedis (L), Dorsalis Pedis (R) GI/Abdominal: Normal Bowel Sounds, Soft, Non-Tender. No: Guarding, Rigid (Male) Exam: Deferred Rectal (Males) Exam: Deferred Back Exam: Normal Inspection Extremities: Normal Inspection, Non-Tender, No Pedal Edema Neurological: Alert, Oriented, Normal Cognition Psychiatric: Normal Affect, Normal Mood Skin Exam: Warm, Dry, Normal Color Lymphatic: No Adenopathy Course - Vital Signs Last Recorded V/S: Last Vital Signs Temp 98.4 F 09/09/17 16:45 Pulse 69 09/09/17 16:45 Resp 18 09/09/17 16:45 BP 125/65 09/09/17 16:45 Pulse Ox 97 09/09/17 16:45 - Orders/Labs/Meds Orders: Active Orders 24 hr Category Date Time Status Admission Diagnosis [ADT] Routine ADT 09/09/17 16:32 Active Cardiac Monitoring [RC] .As Directed Care 09/09/17 15:12 Active EKG Documentation Completion [RC] ASDIRECTED Care 09/09/17 15:15 Active TROPONIN I [CHEM] Routine Lab 09/09/17 19:00 Ordered TROPONIN I [CHEM] Routine Lab 09/10/17 01:00 Ordered TROPONIN I [CHEM] Routine Lab 09/10/17 07:30 Ordered Morphine Med 09/09/17 16:07 Active 2 mg IVPUSH Q1H PRN Sodium Chloride 0.9% [Saline Flush] Med 09/09/17 15:16 Active 10 ml FLUSH ASDIRECTED PRN Saline Lock Insert [OM.PC] Routine Oth 09/09/17 15:16 Ordered Medication Orders Morphine Sulfate (Morphine) 2 mg IVPUSH Q1H PRN PRN Reason: Chest Pain Last Admin: 09/09/17 16:12 Dose: 2 mg Sodium Chloride (Saline Flush) 10 ml FLUSH ASDIRECTED PRN PRN Reason: Keep Vein Open Labs: Laboratory Tests 09/09/17 09/09/17 09/09/17 Range/Units 15:10 15:10 15:20 WBC 10.3 (4.0-11.0) K/uL RBC 4.58 (4.50-6.50) M/uL Hgb 12.9 L (13.0-18.0) g/dL Hct 38.2 L (40.0-54.0) % MCV 83 (76-96) fL MCH 28.2 (27.0-32.0) pg MCHC 33.8 (31.0-35.0) g/dL RDW 14.1 (11.0-16.0) % Plt Count 149 L (150-400) K/uL MPV 11.5 H (6.0-10.0) fL Neut % (Auto) 60.2 (45.0-70.0) % Lymph % (Auto) 31.6 (20.0-40.0) % Banner % (Auto) 7.0 (3.0-10.0) % Eos % (Auto) 0.8 L (1.0-5.0) % Baso % (Auto) 0.4 (0.0-0.5) % Neut # (Auto) 6.18 (2.00-7.50) K/uL Lymph # (Auto) 3.24 (1.50-4.00) K/uL Banner # (Auto) 0.72 (0.20-0.80) K/uL Eos # (Auto) 0.08 (0.04-0.40) K/uL Baso # (Auto) 0.04 (0.02-0.10) K/uL D-Dimer, Quantitative < 100 (0-400) ng/mL Sodium 137 (136-145) mmol/L Potassium 3.4 L (3.5-5.1) mmol/L Chloride 101 (98-107) mmol/L Carbon Dioxide 25.4 (21.0-32.0) mmol/L Anion Gap 14.0 (5.0-15.0) mmol/L BUN 22 D (8-26) mg/dL Creatinine 1.38 H (0.70-1.30) mg/dL Est Cr Clr Drug Dosing TNP Estimated GFR (MDRD) 51 L (>60) MLS/MIN BUN/Creatinine Ratio 15.9 (6-25) Glucose 157 H (74-100) mg/dL POC Glucose (74-110) mg/dL Calcium 7.7 L (8.5-10.1) mg/dL Total Bilirubin 0.5 (0.0-1.0) mg/dL AST 14 L (15-37) U/L ALT 23 (12-78) U/L Alkaline Phosphatase 118 H (46-116) U/L Troponin I < 0.017 (0.000-0.060) ng/mL Total Protein 6.8 (6.4-8.2) g/dL Albumin 3.3 L (3.4-5.0) g/dL Globulin 3.5 (2.2-4.2) g/dL Albumin/Globulin Ratio 0.9 (0.8-2.0) 09/09/17 Range/Units 16:07 WBC (4.0-11.0) K/uL RBC (4.50-6.50) M/uL Hgb (13.0-18.0) g/dL Hct (40.0-54.0) % MCV (76-96) fL MCH (27.0-32.0) pg MCHC (31.0-35.0) g/dL RDW (11.0-16.0) % Plt Count (150-400) K/uL MPV (6.0-10.0) fL Neut % (Auto) (45.0-70.0) % Lymph % (Auto) (20.0-40.0) % Banner % (Auto) (3.0-10.0) % Eos % (Auto) (1.0-5.0) % Baso % (Auto) (0.0-0.5) % Neut # (Auto) (2.00-7.50) K/uL Lymph # (Auto) (1.50-4.00) K/uL Banner # (Auto) (0.20-0.80) K/uL Eos # (Auto) (0.04-0.40) K/uL Baso # (Auto) (0.02-0.10) K/uL D-Dimer, Quantitative (0-400) ng/mL Sodium (136-145) mmol/L Potassium (3.5-5.1) mmol/L Chloride (98-107) mmol/L Carbon Dioxide (21.0-32.0) mmol/L Anion Gap (5.0-15.0) mmol/L BUN (8-26) mg/dL Creatinine (0.70-1.30) mg/dL Est Cr Clr Drug Dosing Estimated GFR (MDRD) (>60) MLS/MIN BUN/Creatinine Ratio (6-25) Glucose (74-100) mg/dL POC Glucose 95 (74-110) mg/dL Calcium (8.5-10.1) mg/dL Total Bilirubin (0.0-1.0) mg/dL AST (15-37) U/L ALT (12-78) U/L Alkaline Phosphatase (46-116) U/L Troponin I (0.000-0.060) ng/mL Total Protein (6.4-8.2) g/dL Albumin (3.4-5.0) g/dL Globulin (2.2-4.2) g/dL Albumin/Globulin Ratio (0.8-2.0) Meds: Medications Generic Name Dose Route Start Last Admin Trade Name Freq PRN Reason Stop Dose Admin Morphine Sulfate 2 mg 09/09/17 16:07 09/09/17 16:12 Morphine IVPUSH 2 mg Q1H PRN Administration Chest Pain Sodium Chloride 10 ml 09/09/17 15:16 Saline Flush FLUSH ASDIRECTED PRN Keep Vein Open Discontinued Medications Generic Name Dose Route Start Last Admin Trade Name Freq PRN Reason Stop Dose Admin Aspirin 324 mg 09/09/17 15:12 09/09/17 15:14 Aspirin PO 09/09/17 15:13 324 mg ONETIME ONE Administration Morphine Sulfate Confirm 09/09/17 16:13 09/09/17 16:12 Morphine Administered 09/09/17 16:14 Not Given Dose 10 mg .ROUTE .STK-MED ONE - Re-Assessments/Exams Free Text/Narrative Re-Assessment/Exam: 09/09/17 17:56 LE 16:30 Lab results reviewed, troponin and D-dimer negative. Consult with Dr Guadarrama, cardiology, [facility]. Recommend repeating series of Troponins, referral to cardiac rehab. and may consider transfer to [facility], if pain persists, status change or changes in Troponins. Reviewed this with pt and , will place on observation and repeat Troponins at 7pm. 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 May consider monitoring for night and discharge in am if no pain and Troponins negative. Departure - Departure Time of Disposition: 16:33 Disposition: Admitted As Inpatient 68 Condition: Good Clinical Impression: Chest pain Diabetes mellitus Qualifiers: Diabetes mellitus type: type 2 Diabetes mellitus complication status: without complication Qualified Code(s): E11.9 - Type 2 diabetes mellitus without complications - My Orders Last 24 Hours: My Active Orders 09/09/17 15:12 Cardiac Monitoring [RC] .As Directed 09/09/17 15:15 EKG Documentation Completion [RC] ASDIRECTED 09/09/17 15:16 Sodium Chloride 0.9% [Saline Flush] 10 ml FLUSH ASDIRECTED PRN Saline Lock Insert [OM.PC] Routine 09/09/17 16:07 Morphine 2 mg IVPUSH Q1H PRN 09/09/17 16:32 Admission Diagnosis [ADT] Routine 09/09/17 19:00 TROPONIN I [CHEM] Routine 09/10/17 01:00 TROPONIN I [CHEM] Routine 09/10/17 07:30 TROPONIN I [CHEM] Routine - Assessment/Plan Last 24 Hours: My Active Orders 09/09/17 15:12 Cardiac Monitoring [RC] .As Directed 09/09/17 15:15 EKG Documentation Completion [RC] ASDIRECTED 09/09/17 15:16 Sodium Chloride 0.9% [Saline Flush] 10 ml FLUSH ASDIRECTED PRN Saline Lock Insert [OM.PC] Routine 09/09/17 16:07 Morphine 2 mg IVPUSH Q1H PRN 09/09/17 16:32 Admission Diagnosis [ADT] Routine 09/09/17 19:00 TROPONIN I [CHEM] Routine 09/10/17 01:00 TROPONIN I [CHEM] Routine 09/10/17 07:30 TROPONIN I [CHEM] Routine Plan: Chest Pain: Diabetes Mellitus Type 2, controlled. Hx of PE and DVT hyperlipidemia and hypertension. Cardiac stent and cardiac pacer Observation for pt, Normal saline IV at 75cc/hr. Cardiac and diabetic diet for supper. Medication from home. Repeat Troponins at 1900. MS 2 mg every 1 hr as needed for relief of pain. Refer to primary care provider for follow-up.
[2017-09-09] MEDS ORDERED: Aspirin 81 MG Tab.Chew PO ONE (15:12)
[2017-09-09] MEDS ORDERED: Sodium Chloride 0.9% 10 ML Syringe FLUSH PRN (15:16)
[2017-09-09] MEDS: Morphine 2 MG/ML Syringe IVPUSH PRN ×2 (16:12→22:34)
[2017-09-09] MEDS ORDERED: Morphine 10 MG/ML Syringe ONE (16:13)
[2017-09-09] MEDS ORDERED: METHOCARBAMOL 750 MG PO PRN (20:29)
[2017-09-09] MEDS ORDERED: [UNRECOGNIZED DRUG - OTHER] MC SCH (20:30)
[2017-09-09] MEDS ORDERED: Acetaminophen/oxyCODONE 325-5 MG Tab PO PRN (20:49)
[2017-09-10] MEDS ORDERED: CYCLOBENZAPRINE 10 MG PO PRN (06:19)
[2017-09-10] MEDS ORDERED: MECLIZINE 25 MG PO PRN (06:24)
[2017-09-10] MEDS ORDERED: NITROGLYCERIN 0.4 MG SL PRN (06:30)
[2017-09-10] MEDS ORDERED: Omeprazole 20 MG Cap.CR *PTOM PO SCH (07:00)
[2017-09-10] MEDS ORDERED: METOCLOPRAMIDE 10 MG PO SCH (07:00)
[2017-09-10 07:57] VITALS: BP 143/71
[2017-09-10] MEDS ORDERED: Clopidogrel 75 MG Tab *PT OWN MED PO SCH (08:00)
[2017-09-10] MEDS ORDERED: ISOSORBIDE MONONITRATE 60 MG PO SCH (08:00)
[2017-09-10] MEDS ORDERED: Metoprolol Succinate 25 MG Tab.ER *PT OWN MED PO SCH (08:00)
[2017-09-10] MEDS ORDERED: Furosemide 20 MG Tab *PTOM PO SCH ×2 (08:00→12:00)
[2017-09-10] MEDS ORDERED: ATORVASTATIN 20 MG PO SCH (20:00)
[2017-09-10] MEDS ORDERED: Melatonin 3 MG Tab *PTOM PO SCH (21:30)
--- NOTE | 2017-09-11 02:06 | DISCH ---
HISTORY OF PRESENT ILLNESS: This patient was admitted yesterday afternoon through the emergency room for chest pain to rule out an ME. He has had troponin levels done 3 times. They are all negative. The patient's pain this morning he tells me is more in the shoulder and the left side of his neck. He has had pain like this multiple times in the past. He has had neck problems, and his neck pain can cause migraines. The patient rates his pain today at around 7/10. He did have a Percocet at 0615 hours this morning. He takes them on a p.r.n. basis at home as well. The patient states that he otherwise feels fine. He feels better than he did yesterday. Yesterday, his pain was down more into the chest down to the lower sternum area. PHYSICAL EXAMINATION: VITAL SIGNS: Blood pressure 143/71, pulse is 65, O2 sats are 97%. He is afebrile. LUNGS: On physical exam, lungs are clear. CARDIAC: Heart sounds distinct without murmurs. ABDOMEN: Soft, protuberant, nontender to palpation. SKIN: Warm and dry. ASSESSMENT AND PLAN: The patient will be discharged home today. He does have Percocet that he is to take as needed, and he does have an upcoming appointment with Dr. Dumas. He is expecting to get some trigger point injections on the left side of his neck early next week. Addendum; Final diagnosis; 1) Chest pain - non cardiac. 2) Left shoulder and neck pain - chronic. CRS/MODL /[id number] LENO
== END 2017-09-10 09:13 | disposition home or self-care (01) ==
LOC: LB.ED 14:49 → LB.MS 16:33
PROVIDERS: ADMIT Nurse Practitioner Family; ATTEND Nurse Practitioner Family
DX: R07.89 Other chest pain (principal); G89.29 Other chronic pain; M25.512 Pain in left shoulder; M54.2 Cervicalgia; E11.9 Type 2 diabetes mellitus without complications; I10 Essential (primary) hypertension; E78.00 Pure hypercholesterolemia, unspecified; G47.30 Sleep apnea, unspecified; K59.09 Other constipation; K21.9 Gastro-esophageal reflux disease without esophagitis; F32.9 Major depressive disorder, single episode, unspecified; E66.9 Obesity, unspecified; Z68.30 Body mass index [BMI] 30.0-30.9, adult; Z88.8 Allergy status to other drugs, medicaments and biological substances; Z91.018 Allergy to other foods; Z79.4 Long term (current) use of insulin; Z79.899 Other long term (current) drug therapy; Z99.89 Dependence on other enabling machines and devices
CPT/HCPCS: 36415; 80053; 82962; 84484; 85025; 85379; 93005; 99217; 99219; 99285-25; A9270-GY; J2270

== ENCOUNTER 2017-09-23 18:07 | Observation (INO) | payer MEDICARE, BC ==
[2017-09-23] MEDS ORDERED: Morphine 2 MG/ML Syringe IVPUSH ONE (18:19)
[2017-09-23] MEDS ORDERED: Aspirin 81 MG Tab.Chew ONE (18:35)
[2017-09-23] MEDS ORDERED: Morphine 2 MG/ML Syringe ONE ×2 (18:35)
[2017-09-23] MEDS ORDERED: Nitroglycerin 0.4 MG Tab.SL ONE (18:35)
[2017-09-23] MEDS ORDERED: METHOCARBAMOL 750 MG PO PRN (19:19)
[2017-09-23] MEDS ORDERED: INSULIN PUMP MC SCH ×2 (19:30)
[2017-09-23] MEDS ORDERED: Non-Formulary Medication 1 Each (Nitroglycerin [Nitrostat] 0.4 MG) SL SCH (19:30)
[2017-09-23] MEDS ORDERED: NS + KCl 20mEq/L 1,000 ML IV SCH (19:45)
[2017-09-23] MEDS ORDERED: Non-Formulary Medication 1 Each (Atorvastatin [Lipitor] 20 MG) PO SCH (20:00)
[2017-09-23] MEDS: Morphine 2 MG/ML Syringe IVPUSH PRN ×2 (20:13→22:37)
[2017-09-23] MEDS: METOCLOPRAMIDE HCL 10 MG PO SCH (20:56)
[2017-09-23] MEDS ORDERED: NS + KCl 20mEq/L 1,000 ML ONE (21:08)
[2017-09-23] MEDS ORDERED: MECLIZINE 25 MG PO PRN (21:27)
[2017-09-23] MEDS ORDERED: OXYCODONE PO PRN (21:30)
[2017-09-23] MEDS ORDERED: ACETAMINOPHEN PO PRN (21:30)
[2017-09-23] MEDS ORDERED: Non-Formulary Medication 1 Each (Melatonin [Melatonin] 3 MG) PO SCH (21:30)
--- NOTE | 2017-09-24 00:09 | CR ---
PORTABLE CHEST, 09/23/17 Comparison made to a prior exam dated 04/16/17. The heart size is stable. The cardiac pacer and pacer wires remain unchanged in position. The lungs are clear. No evidence of acute intrathoracic disease. [id number] [facility]
[2017-09-24] MEDS ORDERED: Morphine 10 MG/ML Syringe ONE (01:00)
[2017-09-24] MEDS: Morphine 2 MG/ML Syringe IVPUSH PRN ×3 (01:07→06:35)
--- NOTE | 2017-09-24 02:04 | ER ---
DATE OF SERVICE: 09/23/2017 HPI: A 71-year-old male who comes in with his by private car with complaints of chest pain that started about 3 or 4 p.m. today which is about 2 to 3 hours ago. The patient states that it is fairly severe. It is involving the anterior chest wall, left side as well, as well his left arm. The pain is constant. He did take 3 nitroglycerin at home, which seemed to help the pain for a while, but it seems like it is coming back. He currently rates his pain at 9/10. The patient denies any problems with nausea. He has not had any falls or injuries. He has not been sick recently. He does have history of heart disease. He has a pacemaker. The patient states he has had problems with a fast heart rate. He has had a cardiac ablation therapy and has had a recent angiogram about a month ago, and he was told that his vessels were plugged no more than 50%. OBJECTIVE: GENERAL APPEARANCE: The patient is awake and alert. He is uncomfortable. No respiratory distress. VITAL SIGNS: Reviewed. Initial blood pressure is 167/81, pulse is 76, O2 sats are good at 98%, respiration rate is 20. LUNGS: Clear to auscultation. CARDIAC: Heart sounds distinct without murmurs. ABDOMEN: Soft, protuberant, nontender to palpation. SKIN: Warm and dry. Oral mucous membranes moist. EXTREMITIES: There is no lower extremity edema. INITIAL TREATMENT PLAN: Baby aspirin was given to the patient. He had taken 2 at home. We gave him 2 more and one nitroglycerin was given here in the emergency room. An IV was started. He was given morphine 2 mg IV and initial EKG shows a normal sinus rhythm with a paced rhythm. The initial morphine brought his pain down to 5/10. He was given an additional 2 mg and that brought his pain down to a 4/10. LAB AND X-RAY STUDIES: CBC shows a slightly elevated white count of 13.8, otherwise unremarkable. Comprehensive metabolic panel shows it has a potassium level of 3.3, blood sugar is 241, but that troponin level is normal. Chest x-ray is negative for any acute changes. DIAGNOSES: 1. Chest pain with a negative initial cardiac workup. 2. Hypokalemia. TREATMENT PLAN: We will admit the patient overnight for serial cardiac enzymes and pain control. We will also give the patient some IV fluid with potassium. Last blood pressure in the emergency room was 170/77. CRS/MODL /[id number] MTDD
--- NOTE | 2017-09-24 02:22 | HP ---
DATE OF ADMISSION: 09/23/2017 HISTORY OF PRESENT ILLNESS: A 71-year-old male who admitted from the emergency room this evening for chest pain. His initial cardiac workup was negative. The patient will be admitted for observation, and we will get serial troponin levels on him overnight. The next level will be at approximately 11 p.m., and if this is negative or normal, the third troponin level would be done in the morning. The patient was evaluated after being transferred to the hospital, inpatient status. He states that his pain is about the same, around a 5. He feels comfortable. We will be giving the patient some morphine p.r.n. for his pain. He also will be getting 1 L of normal saline with 20 mEq of potassium. This patient has had history of chest pain. He was admitted a couple of weeks ago here for these similar symptoms. OK was ruled out and he was discharged home the next day. The patient has seen Dr. Dumas since then. He states that he has had some kind of injection in his neck to help with his migraines, and that does help with his migraines. He has also recently had a cardiac angiogram about a month ago he tells me at [place] which was unremarkable. The patient does have a pacemaker due to a history of tachycardia and he also has history of cardiac ablation. PAST MEDICAL HISTORY: Other medical history includes 1. History of syncope. 2. Shortness of breath. 3. Pulmonary embolism. 4. Migraines. 5. Diabetes, insulin dependent, the patient has a pump. 6. History of back pain as well as history of morbid obesity. MEDICATIONS: Reviewed; please see the accompanying list. SURGICAL HISTORY: Please refer to the patient's previous dictations. OBJECTIVE: GENERAL APPEARANCE: The patient is awake and alert. He appears relaxed at this time. He states that he feels okay. VITAL SIGNS: Reviewed. Most recent vital signs reveal a blood pressure of 158/84, pulse of 75, O2 sats are 96% on room air. LUNGS: Clear with slightly reduced air exchange throughout the lung lema. CARDIAC: Heart sounds distinct. SKIN: Warm and dry. Diagnosis; Chest pain. TREATMENT PLAN: The patient will be monitored overnight. Additional troponin levels will be drawn as previously stated. We will give him some IV fluids with potassium to replenish his slightly low potassium level and treat his pain with morphine which can be given hourly p.r.n. The patient is in agreement with this treatment plan and has no further questions. CRS/MODL MTDD
[2017-09-24] MEDS ORDERED: Calcium Carbonate 500 MG Tab.Chew PO ONE (05:12)
[2017-09-24] MEDS ORDERED: Non-Formulary Medication 1 Each (Omeprazole [Omeprazole] 20 MG) PO SCH (07:00)
[2017-09-24] MEDS: METOCLOPRAMIDE HCL 10 MG PO SCH (07:28)
[2017-09-24 07:56] VITALS: BP 148/78
[2017-09-24] MEDS ORDERED: Non-Formulary Medication 1 Each (Rivaroxaban [Xarelto] 20 MG) PO SCH (08:00)
[2017-09-24] MEDS ORDERED: TAMSULOSIN HCL 0.8 MG PO SCH (08:00)
[2017-09-24] MEDS ORDERED: ISOSORBIDE MONONITRATE 60 MG PO SCH (08:00)
[2017-09-24] MEDS ORDERED: Non-Formulary Medication 1 Each (Furosemide [Furosemide] 20 MG) PO SCH (08:00)
[2017-09-24] MEDS ORDERED: Metoclopramide 10 MG Tab PO SCH (08:00)
[2017-09-24] MEDS ORDERED: Sodium Chloride 0.9% 10 ML Syringe FLUSH SCH (08:00)
[2017-09-24] MEDS ORDERED: Non-Formulary Medication 1 Each (Clopidogrel [Plavix] 75 MG) PO SCH (08:00)
[2017-09-24] MEDS ORDERED: Non-Formulary Medication 1 Each (Metoprolol Succinate [Toprol Xl] 25 MG) PO SCH (08:00)
[2017-09-24] MEDS ORDERED: Isosorbide Mononitrate 60 MG Tab.ER PO SCH (08:15)
[2017-09-24] MEDS ORDERED: Clopidogrel 75 MG Tab**OWN MED PO SCH (08:27)
[2017-09-24] MEDS ORDERED: Furosemide 20 MG Tab PO SCH (08:28)
[2017-09-24] MEDS ORDERED: Metoprolol Succinate 25 MG Tab.ER PO SCH (08:32)
[2017-09-24] MEDS ORDERED: Omeprazole 20 MG Cap.CR PO SCH (08:35)
[2017-09-24] MEDS ORDERED: Nitroglycerin 0.4 MG Tab.SL SL PRN (09:00)
[2017-09-24] MEDS ORDERED: Furosemide 40 MG Tab**OWN MED PO SCH ×2 (10:18→12:00)
[2017-09-24] MEDS ORDERED: Polyethylene Glycol 3350 Powder 17 GM Packet PO PRN (10:40)
[2017-09-24] MEDS ORDERED: METOCLOPRAMIDE 10 MG PO SCH (12:00)
[2017-09-24] MEDS ORDERED: Melatonin 3 MG Tab PO SCH (21:30)
--- NOTE | 2017-09-25 02:47 | DISCH ---
HOSPITAL COURSE: He was admitted through the emergency room last evening with chest pain to do serial cardiac enzymes. They have remained negative. He had 3 sets of troponin levels, which were all negative or normal. The patient was given morphine p.r.n. during the night to help with his chest pain and this did seem to help his pain, but it always seemed to come back. This morning, he states that he feels better. He still rates his pain between a 5 and 7/10. He is pointing around the lower side of the ribcage on the left side. The patient denies any problems breathing. He has not had any urinary symptoms or abdominal pain. When entering the room, the patient was sitting in a chair watching television visiting with his . He is comfortable, no obvious distress. PHYSICAL EXAMINATION: VITAL SIGNS: Today revealed blood pressure 148/78, respirations 16, O2 sats are 97% on room air, and he is afebrile. LUNGS: Clear. CARDIAC: Heart sounds distinct without murmurs. SKIN: Warm and dry. DIAGNOSIS: Chest pain with negative cardiac workup. TREATMENT PLAN: At this point, I will treat this as angina. The patient will have his Imdur increased. He is on 60 mg a day. He will start taking 60 mg b.i.d. I do want the patient to follow up with his primary care provider as soon as possible. He tells me he cannot take any NSAID medication because of his kidney function. Therefore, I would advise the patient to take Tylenol for pain as needed and we also briefly discussed using a nitroglycerin patch with nitroglycerin paste if this does not work. The patient has no further questions and will be discharged today. JOSUE/ADRIANO /[id number]
[2017-09-25] MEDS ORDERED: Omeprazole 20 MG Cap.CR**OWN MED PO SCH (07:00)
[2017-09-25] MEDS ORDERED: Tamsulosin 0.4 MG Cap.ER**OWN MED PO SCH (08:00)
[2017-09-25] MEDS ORDERED: RIVAROXABAN 20 MG PO SCH (08:00)
[2017-09-25] MEDS ORDERED: ISOSORBIDE MONONITRATE 60 MG PO SCH (08:00)
[2017-09-25] MEDS ORDERED: Clopidogrel 75 MG Tab**OWN MED PO SCH (08:00)
[2017-09-25] MEDS ORDERED: Metoprolol Succinate 25 MG Tab.ER**OWN MED PO SCH (08:00)
== END 2017-09-24 10:40 | disposition home or self-care (01) ==
LOC: LB.ED 18:07 → LB.MS 19:25 → UNDOADMOB 19:40
PROVIDERS: ADMIT Physician Assistant; ATTEND Physician Assistant
DX: R07.9 Chest pain, unspecified (principal); E11.9 Type 2 diabetes mellitus without complications; E87.6 Hypokalemia; Z79.4 Long term (current) use of insulin; Z88.8 Allergy status to other drugs, medicaments and biological substances; Z91.018 Allergy to other foods
CPT/HCPCS: 36415; 71045; 80053; 81001; 82962; 84484; 85025; 93005; 96361; 96374; 96376; 99285; A9270-GY; G0378; J2270; J3480; J7050

== ENCOUNTER 2017-10-10 12:57 | Emergency (ER) | payer MEDICARE, BC ==
[2017-10-10] MEDS ORDERED: Aspirin 81 MG Tab.Chew PO ONE (13:17)
[2017-10-10] MEDS ORDERED: Morphine 2 MG/ML Syringe IVPUSH ONE ×2 (13:18→13:38)
[2017-10-10] MEDS ORDERED: Ketorolac 30 MG/ML SDV IVPUSH ONE (14:21)
[2017-10-10] MEDS ORDERED: Ketorolac 30 MG/ML SDV ONE (14:25)
[2017-10-10] MEDS ORDERED: Sodium Chloride 0.9% 10 ML Syringe FLUSH PRN (14:30)
[2017-10-10] MEDS ORDERED: HYDROmorphone 2 MG/ML Syringe IVPUSH ONE (14:46)
[2017-10-10] MEDS ORDERED: HYDROmorphone 4 MG/ML Syringe ONE (14:50)
[2017-10-10 15:01] VITALS: BP 143/76
--- NOTE | 2017-10-10 23:09 | ER ---
HPI: A 72-year-old male who comes in with his by private car with complaints of chest pain on the left lower side of the chest wall anteriorly bilaterally. The patient states it started about an hour ago. He was sitting in a chair, watching television, when the pain started. He rates his pain currently at 8/10. The patient denies any problems with nausea, coughing, or shortness of breath. He has not been running a fever. He has not been sick lately. JOSUE/ADRIANO /[id number]
--- NOTE | 2017-10-11 07:02 | CR ---
AP PORTABLE CHEST, 10/10/17 Comparison is made to a prior exam dated 09/23/17. The cardiac pacer and pacer wires remain unchanged in position. The heart is enlarged. There are mild atelectatic changes in both lower lungs. There is mild pleural thickening in both hemithoraces. The lungs are otherwise clear. No other significant findings. [id number] [facility]
--- NOTE | 2017-10-11 07:19 | CT ---
DATE OF SERVICE: 10/10/17 CLINICAL DATA: chest pain UNENHANCED CHEST CT: Multislice acquisition through the chest without IV contrast was performed. Comparison is made to a prior exam dated 10/10/2017. The lungs are clear. No areas of consolidation. No pneumothorax. No pleural effusions. There are cardiac pacer wires noted within the heart. The heart size is normal. No significant pericardial effusion. No hilar or mediastinal adenopathy. There is a 6 mm low density lesion within the left lobe of the liver medial segment. This is probably a cyst. It is, however, too small to adequately characterize. No other significant findings. [id number] [facility]
--- NOTE | 2017-10-11 22:13 | ER ---
DATE OF SERVICE: 10/10/2017 HISTORY OF PRESENT ILLNESS: A 72-year-old male who comes in with complaints of chest pain that started about an hour ago. He states he was sitting at home in his easy chair watching television when the pain developed. He states he did have a feel like he had a funny heartbeat earlier in the morning, but nothing significant. The patient rates his pain at 7/10 or 8/10. He denies any nausea. He has not had any problems with coughing or shortness of breath. He has no pain radiating into the neck or left arm. He is pointing to the lower anterior chest wall radiating around to the lateral anterior lower chest wall when describing the area of discomfort. The patient has not had any recent falls or injuries. PAST MEDICAL HISTORY: Includes history of cardiac ablation. He has history of stents and he also have a pacemaker that was put in late last year. The patient also has history of diabetes, insulin dependent, he has a pump, and history of migraines. OBJECTIVE: GENERAL APPEARANCE: The patient is awake and alert. He is uncomfortable at this time. VITAL SIGNS: Reviewed. His blood pressure initially is 176/83, pulse is 78, O2 sats are 96% on room air. INITIAL TREATMENT: Four baby aspirin were given to the patient. An EKG was obtained showing a normal sinus rhythm. IV access was obtained, and he was given morphine 4 mg IV which did bring his pain down to 5 and the patient states he feels much better. Within about 15 minutes, he started to state that his pain was increasing to 6 maybe 6- 1/2, he was given morphine 2 mg, which brought his pain back down to 5. At this point, I did consult Dr. Cui and this was confirmed as chest wall pain/costochondritis. LABORATORY DATA: Labs today include a CBC, CMP, and troponin. Lab results are normal. Troponin level is negative. At this point, further evaluation reveals the patient does have tenderness with palpation along the lower anterior chest wall on the left side and the lateral chest wall on the left side with guarding noted in these 2 areas. The skin is intact without bruising or discoloration. DIAGNOSIS: Chest wall pain/costochondritis. TREATMENT PLAN: The patient was given Toradol 30 mg IV. He was monitored for about 20 minutes, and he states the pain only reduced slightly, at which point, I gave the patient Dilaudid 1 mg IV and we got a chest CT. The chest CT is negative for any acute abnormality. The patient does have a muscle relaxer cyclobenzaprine at home. He uses it occasionally. I advised the patient to use this more frequently. I also feel the patient should use heat to the area of pain as needed for 10 to 15 minutes every two to three hours on a p.r.n. basis, and he is to use Tylenol 2 extra Strength every 6 hours while awake. I do want the patient to follow up in a couple of days if his symptoms are not definitely improving. He has been seen for chest pain three times within the last month and his cardiac workups have been negative each time. Today, I assured the patient that pain is coming from his chest wall and not his heart. The patient agrees with the treatment plan and has no further questions. JOSUE/ADRIANO /[id number] MTDMark
== END 2017-10-10 16:15 | disposition home or self-care (01) ==
LOC: LB.ED 12:57
DX: M94.0 Chondrocostal junction syndrome [Tietze] (principal); E11.9 Type 2 diabetes mellitus without complications
CPT/HCPCS: 36415; 71045; 71250; 80053; 84484; 85025; 93005; 96374; 96375; 99284; 99285; A9270; J1170; J1885; J2270; J7050

== ENCOUNTER 2017-10-14 17:59 | Emergency (ER) | payer MEDICARE, BC ==
[2013-05-05 12:09] VITALS: BP 133/86
[2017-10-14] MEDS ORDERED: Ondansetron 4 MG Tab.DIS PO ONE (18:18)
[2017-10-14] MEDS ORDERED: HYDROmorphone 2 MG/ML Syringe SUBCUT ONE (18:20)
[2017-10-14 18:45] VITALS: BP 125/71
[2017-10-14] MEDS ORDERED: GI Cocktail Oral Solution 30 ML PO ONE (18:49)
--- NOTE | 2017-10-15 01:50 | ER ---
DATE OF SERVICE: 10/14/2017 HISTORY OF PRESENT ILLNESS: A 72-year-old male who comes in with his with complaints of epigastric pain just to the left side of midline as well as a migraine headache. The patient states that the pain started about an hour ago while he was watching TV at home. He denies any chest pain or shortness of breath. He tells me that at times he feels like his heartbeat is a little bit slow. Other times he feels like it is fast. The patient states that his migraine pain is worse than his abdominal pain. He would rate his migraine headache at about 8 or 9/10. The abdominal pain is about 5 or 6. The patient states he is out of his pain medications that he has been given by his primary care provider for migraine headaches. He did try taking Excedrin Migraine, but it did not seem to help. OBJECTIVE: GENERAL APPEARANCE: The patient is awake and alert. No obvious respiratory distress. VITAL SIGNS: Reviewed. Blood pressure 138/77, O2 saturations are 93 %, pulse is 88. LUNGS: Clear. CARDIAC: Heart sounds distinct without murmurs. ABDOMEN: The patient does have some epigastric pain involving the upper left quadrant just to the left of midline with palpation. Bowel sounds are present. SKIN: Warm and dry. LAB AND X-RAY STUDIES: EKG shows normal sinus rhythm. DIAGNOSES: 1. Migraine headache. 2. Epigastric pain, possibly connected to the migraine. TREATMENT PLAN: Zofran 4 mg sublingually was given. I also gave the patient Dilaudid 2 mg subcu. We monitored him for about 45 minutes and this treatment plan significantly reduced his headache. He stated that his epigastric pain is still about the same. At this point, we gave him a GI cocktail 30 mL p.o., and within 10 minutes, his epigastric pain was down to a 2. The patient states that he feels pretty good now. We also turned the lights down in the room since the examination was done. At this point, the patient will go home with his driving him home. He is to get a good night's sleep. The patient is taking Reglan up to 4 times a day. I advised the patient that he needs to contact his regular care provider tomorrow to see about getting a refill of his pain medications and maybe switching his antiemetic medication since it does not seem to be working for him. The patient has no further questions. CRS/MODL /[id number] MTDD
== END 2017-10-14 19:20 | disposition home or self-care (01) ==
LOC: LB.ED 17:59
DX: G43.909 Migraine, unspecified, not intractable, without status migrainosus (principal); R10.13 Epigastric pain
CPT/HCPCS: 93005; 96372; 99283-25; A9270-GY; J1170

== ENCOUNTER 2017-11-22 16:04 | Observation (INO) | payer MEDICARE, BC ==
[2013-05-05 12:09] VITALS: BP 133/86
[2017-11-22] MEDS: Sodium Chloride 0.9% 1,000 ML IV SCH ×2 (16:30→23:47)
[2017-11-22] MEDS ORDERED: Morphine 2 MG/ML Syringe ONE (17:09)
[2017-11-22] MEDS ORDERED: Acetaminophen 325 MG Tab PO PRN (18:55)
--- NOTE | 2017-11-22 18:59 | PCM.HP ---
H&P History of Present Illness - General Date of Service: 11/22/17 Admit Problem/Dx: Admission Diagnosis/Problem Admission Diagnosis/Problem Chest pain Source of Information: Patient History Limitations: Reports: No Limitations - History of Present Illness Initial Comments - Free Text/Narative: This is a 72yo M here for left sided chest pain with no radiation. Nothing makes it better or improves it. It does not cause him shortness of breath. He states the pain is an 8/10 and non-reproducible. Patient denies any recent exertional activity. Patient states the pain started an hour ago and will not go away. Onset of Symptoms: Reports: Sudden Duration of Symptoms: Reports: Hour(s):, Constant Location: Reports: Chest Quality: Reports: Ache - Related Data Allergies/Adverse Reactions: Allergies Allergy/AdvReac Type Severity Reaction Status Date / Time coffee (Coffea arabica) Allergy Headache Verified 09/23/17 20:35 nifedipine [From Procardia] AdvReac Mild Constipatio Verified 09/23/17 20:35 n Home Medications: Home Meds Omeprazole 20 mg PO ACBREAKFAST 05/26/15 [History] atorvaSTATin [Lipitor] 20 mg PO BEDTIME 05/26/15 [History] Polyethylene Glycol 3350 [MiraLAX] 17 gm PO ASDIRECTED PRN 12/13/15 [History] Metoprolol Succinate [Toprol XL] 25 mg PO DAILY 05/25/16 [History] Furosemide 20 mg PO QAM 03/29/17 [History] Furosemide [Lasix] 40 mg PO DAILY@1200 03/29/17 [History] Metoclopramide HCl [Reglan] 10 mg PO QID 03/29/17 [History] Tamsulosin HCl 0.4 mg PO DAILY 03/29/17 [History] Insulin Pump Syringe, 3 mL [Minimed [place]] 1 each MC ASDIRECTED 04/04/17 [ History] Clopidogrel [Plavix] 75 mg PO DAILY 09/09/17 [History] Isosorbide Mononitrate [Isosorbide Mononitrate ER] 60 mg PO DAILY 09/09/17 [ History] Meclizine [Antivert] 25 mg PO TID PRN 09/09/17 [History] Melatonin 3 mg PO DAILY@2130 09/09/17 [History] Methocarbamol 750 mg PO ASDIRECTED PRN 09/09/17 [History] Nitroglycerin [Nitrostat] 0.4 mg SL ASDIRECTED 09/09/17 [History] Rivaroxaban [Xarelto] 20 mg PO DAILY 09/09/17 [History] Insulin Pump Syringe, 3 mL [Minimed [place]] 1 each MC ASDIRECTED 09/10/17 [Rx ] Past Medical History - Past Health History Medical/Surgical History: Denies Medical/Surgical History HEENT History: Reports: Cataract Cardiovascular History: Reports: Afib, Automatic Implantable Cardioverter Defibrillators, High Cholesterol, Hypertension, Pacemaker Other Cardiovascular History: Ablation in July,, angiogram 07/25/2017 Respiratory History: Reports: PE, Pneumonia, Recurrent, Sleep Apnea Other Respiratory History: wears a cpap at night with oxygen at 5 LPM/NC Gastrointestinal History: Reports: Bowel Obstruction, Chronic Constipation, GERD , Other (See Below) Other Gastrointestinal History: duodenal ulcer Genitourinary History: Reports: Renal Calculus, Other (See Below) Other Genitourinary History: prostate stent placed 10/01/2016 Musculoskeletal History: Reports: Back Pain, Chronic Other Musculoskeletal History: Neck pain causing migraines Neurological History: Reports: Migraines Other Neuro History: Patient had vertebrae in neck fused very soon. Resolved some or of headaches. Psychiatric History: Reports: Depression, Emotional Problems Endocrine/Metabolic History: Reports: Diabetes, Type II, Obesity/BMI 30+ Other Endocrine/Metabolic History: pt has insulin pump Hematologic History: Reports: B12 Deficiency, Blood Transfusion(s) Oncologic (Cancer) History: Reports: None Dermatologic History: Reports: Other (See Below) Other Dermatologic History: Had pre-cancer lesion removed to R arm. Has lesion to L wrist. - Infectious Disease History Infectious Disease History: Reports: Chicken Pox, Measles, Rubella - Past Surgical History Head Surgeries/Procedures: Reports: None Cardiovascular Surgical History: Reports: Cardiac Ablation GI Surgical History: Reports: Colonoscopy, Hernia, Inguinal, Other (See Below) Male Surgical History: Reports: Kidney Stone Extraction, Lithotripsy ([facility]) Musculoskeletal Surgical History: Reports: Knee Replacement Social & Family History - Family History Family Medical History: Noncontributory HEENT: Reports: Cataract Cardiac: Reports: [place] Respiratory: Reports: COPD GI: Reports: None : Reports: None Endocrine/Metabolic: Reports: Diabetes, type II Oncologic: Reports: Brain, Colon, Lung - Caffeine Use Caffeine Use: Reports: None Other Caffeine Use: diet coke - 3-4 cans /day - Living Situation & Occupation Living situation: Reports: Occupation: Unemployed H&P Review of Systems - Review of Systems: Review Of Systems: ROS reveals no pertinent complaints other than HPI. Exam - Exam Exam: See Below - Vital Signs Vital Signs: Last Vital Signs Temp 37.1 C 11/22/17 18:39 Pulse 83 11/22/17 18:39 Resp 22 H 11/22/17 18:39 BP 139/67 11/22/17 18:39 Pulse Ox 94 L 11/22/17 18:39 - Exam General: Alert, Oriented, Cooperative HEENT: PERRLA, Conjunctiva Clear, EACs Clear Neck: Supple, Trachea Midline Lungs: Clear to Auscultation, Normal Respiratory Effort Cardiovascular: Regular Rate, Regular Rhythm GI/Abdominal Exam: Normal Bowel Sounds, Soft, Non-Tender Extremities: Normal Inspection Peripheral Pulses: 2+: Dorsalis Pedis (L), Dorsalis Pedis (R) Neuro Extensive - Mental Status: Alert, Oriented x3, Normal Mood/Affect - Patient Data Lab Results Last 24 hrs: Laboratory Results - last 24 hr 11/22/17 11/22/17 Range/Units 16:30 16:30 WBC 11.5 H (4.0-11.0) K/uL RBC 4.79 (4.50-6.50) M/uL Hgb 13.7 (13.0-18.0) g/dL Hct 40.6 (40.0-54.0) % MCV 85 (76-96) fL MCH 28.6 (27.0-32.0) pg MCHC 33.7 (31.0-35.0) g/dL RDW 14.8 (11.0-16.0) % Plt Count 172 (150-400) K/uL MPV 11.0 H (6.0-10.0) fL Neut % (Auto) 63.8 (45.0-70.0) % Lymph % (Auto) 28.4 (20.0-40.0) % [place] % (Auto) 6.8 (3.0-10.0) % Eos % (Auto) 0.7 L (1.0-5.0) % Baso % (Auto) 0.3 (0.0-0.5) % Neut # (Auto) 7.35 (2.00-7.50) K/uL Lymph # (Auto) 3.27 (1.50-4.00) K/uL [place] # (Auto) 0.78 (0.20-0.80) K/uL Eos # (Auto) 0.08 (0.04-0.40) K/uL Baso # (Auto) 0.03 (0.02-0.10) K/uL Sodium 141 (136-145) mmol/L Potassium 3.6 (3.5-5.1) mmol/L Chloride 103 (98-107) mmol/L Carbon Dioxide 26.6 (21.0-32.0) mmol/L Anion Gap 15.0 (5.0-15.0) mmol/L BUN 17 D (8-26) mg/dL Creatinine 1.41 H (0.70-1.30) mg/dL Est Cr Clr Drug Dosing TNP Estimated GFR (MDRD) 50 L (>60) MLS/MIN BUN/Creatinine Ratio 12.1 (6-25) Glucose 157 H (74-100) mg/dL Calcium 8.7 (8.5-10.1) mg/dL Total Bilirubin 0.8 D (0.0-1.0) mg/dL AST 16 (15-37) U/L ALT 29 (12-78) U/L Alkaline Phosphatase 129 H (46-116) U/L Troponin I < 0.017 (0.000-0.060) ng/mL Total Protein 7.0 (6.4-8.2) g/dL Albumin 3.4 (3.4-5.0) g/dL Globulin 3.6 (2.2-4.2) g/dL Albumin/Globulin Ratio 0.9 (0.8-2.0) TSH, Ultra Sensitive 1.911 (0.358-3.740) uIU/mL Result Diagrams: 11/22/17 16:30 11/22/17 16:30 - Problem List (1) Atypical chest pain SNOMED Code(s): 697642234 ICD Code: R07.89 - OTHER CHEST PAIN Status: Acute Priority: High Current Visit: Yes Problem List Initiated/Reviewed/Updated: Yes Orders Last 24hrs: Active Orders 24 hr Category Date Time Status Patient Status [ADT] Routine ADT 11/22/17 17:45 Ordered Oxygen Therapy [RC] PRN Care 11/22/17 18:55 Ordered Telemetry Monitoring [Cardiac Monitoring] [RC] .As Care 11/22/17 18:58 Ordered Directed Vital Signs [RC] Q4H Care 11/22/17 18:55 Ordered Heart Healthy Diet [DIET] Diet 11/22/17 Dinner Ordered Chest 1V Frontal [CR] Stat Exams 11/22/17 17:12 Taken BASIC METABOLIC PANEL,BMP [CHEM] AM Lab 11/23/17 05:11 Ordered CBC WITH AUTO DIFF [HEME] AM Lab 11/23/17 05:11 Ordered TROPONIN I [CHEM] AM Lab 11/23/17 05:11 Ordered TROPONIN I [CHEM] Routine Lab 11/22/17 21:00 Ordered Acetaminophen [Tylenol] Med 11/22/17 18:55 Ordered 650 mg PO Q4H PRN Resuscitation Status Routine Resus Stat 11/22/17 18:55 Ordered Medication Orders Acetaminophen (Tylenol) 650 mg PO Q4H PRN PRN Reason: analgesia/fever Assessment/Plan Comment:: Counseled on chest pain and management. We will place in observation under telemetry and continue pain management. Discussed repeat troponins for serial testing and f/u in AM. Patient agreeable to plan of care.
[2017-11-22] MEDS ORDERED: Methocarbamol 750 MG Tab PO PRN (21:35)
[2017-11-22] MEDS ORDERED: Polyethylene Glycol 3350 Powder 17 GM Packet PO PRN (21:35)
[2017-11-22] MEDS ORDERED: Morphine 2 MG/ML Syringe IVPUSH PRN (21:37)
[2017-11-22] MEDS ORDERED: INSULIN PUMP MC SCH ×2 (21:45)
[2017-11-22] MEDS ORDERED: Nitroglycerin 0.4 MG Tab.SL SL SCH (21:45)
[2017-11-22] MEDS: METOCLOPRAMIDE 10 MG PO SCH (22:51)
[2017-11-23] MEDS ORDERED: Omeprazole 20 MG Cap.CR PO SCH (07:00)
[2017-11-23] MEDS: METOCLOPRAMIDE 10 MG PO SCH (07:53)
[2017-11-23 08:00] VITALS: BP 148/85
[2017-11-23] MEDS ORDERED: RIVAROXABAN 20 MG PO SCH (08:00)
[2017-11-23] MEDS ORDERED: ISOSORBIDE MONONITRATE 120 MG PO SCH (08:00)
[2017-11-23] MEDS ORDERED: CLOPIDOGREL 75 MG PO SCH (08:00)
[2017-11-23] MEDS ORDERED: FUROSEMIDE 40 MG PO SCH ×2 (08:00→12:00)
[2017-11-23] MEDS ORDERED: AMITRIPTYLINE 25 MG PO SCH (20:00)
[2017-11-23] MEDS ORDERED: ATORVASTATIN 20 MG PO SCH (20:00)
--- NOTE | 2017-11-23 21:09 | PCM.DCSUM1 ---
Discharge Summary - Hospital Course Free Text/Narrative:: Patient was admitted to observation yesterday by Dr. Dumas for chest pain and to rule out OR. His EKG's and Troponins were negative and he did not have the pain that brought him in when he was discharged today. He will follow up with Dr. Dumas next week in the clinic and with his cardiologists as planned. Diagnosis: Stroke: No - Discharge Data Discharge Date: 11/23/17 Discharge Disposition: Home, Self-Care 01 Condition: Good - Discharge Plan Home Medications: Home Meds Omeprazole 20 mg PO ACBREAKFAST 05/26/15 [History] atorvaSTATin [Lipitor] 20 mg PO BEDTIME 05/26/15 [History] Polyethylene Glycol 3350 [MiraLAX] 17 gm PO ASDIRECTED PRN 12/13/15 [History] Metoprolol Succinate [Toprol XL] 25 mg PO DAILY 05/25/16 [History] Furosemide 20 mg PO QAM 03/29/17 [History] Furosemide [Lasix] 40 mg PO DAILY@1200 03/29/17 [History] Metoclopramide HCl [Reglan] 10 mg PO QID 03/29/17 [History] Tamsulosin HCl 0.4 mg PO DAILY 03/29/17 [History] Insulin Pump Syringe, 3 mL [Minimed [place]] 1 each ASDIRECTED 04/04/17 [ History] Clopidogrel [Plavix] 75 mg PO DAILY 09/09/17 [History] Isosorbide Mononitrate [Isosorbide Mononitrate ER] 60 mg PO DAILY 09/09/17 [ History] Meclizine [Antivert] 25 mg PO TID PRN 09/09/17 [History] Melatonin 3 mg PO DAILY@2130 09/09/17 [History] Methocarbamol 750 mg PO ASDIRECTED PRN 09/09/17 [History] Nitroglycerin [Nitrostat] 0.4 mg SL ASDIRECTED 09/09/17 [History] Rivaroxaban [Xarelto] 20 mg PO DAILY 09/09/17 [History] Insulin Pump Syringe, 3 mL [Minimed [place]] 1 each MC ASDIRECTED 09/10/17 [Rx ] Patient Handouts: Nonspecific Chest Pain - Patient Data Vitals - Most Recent: Last Vital Signs Temp 36.2 C 11/23/17 08:00 Pulse 73 11/23/17 08:00 Resp 20 11/23/17 08:00 BP 148/85 H 11/23/17 08:00 Pulse Ox 96 11/23/17 08:00 I&O - Last 24 hours: Intake & Output 11/23/17 11/23/17 11/23/17 06:59 14:59 22:59 Intake Total 1680 Balance 1680 Lab Results - Last 24 hrs: Laboratory Results - last 24 hr 11/22/17 11/23/17 11/23/17 Range/Units 20:45 06:50 06:50 WBC 9.1 D (4.0-11.0) K/uL RBC 4.34 L (4.50-6.50) M/uL Hgb 12.5 L (13.0-18.0) g/dL Hct 37.3 L (40.0-54.0) % MCV 86 (76-96) fL MCH 28.8 (27.0-32.0) pg MCHC 33.5 (31.0-35.0) g/dL RDW 14.8 (11.0-16.0) % Plt Count 156 (150-400) K/uL MPV 10.5 H (6.0-10.0) fL Neut % (Auto) 60.9 (45.0-70.0) % Lymph % (Auto) 29.1 (20.0-40.0) % [place] % (Auto) 8.7 (3.0-10.0) % Eos % (Auto) 0.9 L (1.0-5.0) % Baso % (Auto) 0.4 (0.0-0.5) % Neut # (Auto) 5.51 (2.00-7.50) K/uL Lymph # (Auto) 2.64 (1.50-4.00) K/uL [place] # (Auto) 0.79 (0.20-0.80) K/uL Eos # (Auto) 0.08 (0.04-0.40) K/uL Baso # (Auto) 0.04 (0.02-0.10) K/uL Sodium 142 (136-145) mmol/L Potassium 3.6 (3.5-5.1) mmol/L Chloride 106 (98-107) mmol/L Carbon Dioxide 28.7 (21.0-32.0) mmol/L Anion Gap 10.9 (5.0-15.0) mmol/L BUN 19 (8-26) mg/dL Creatinine 1.30 (0.70-1.30) mg/dL Est Cr Clr Drug Dosing TNP Estimated GFR (MDRD) 55 L (>60) MLS/MIN BUN/Creatinine Ratio 14.6 (6-25) Glucose 89 D (74-100) mg/dL Calcium 8.2 L (8.5-10.1) mg/dL Troponin I < 0.017 < 0.017 (0.000-0.060) ng/mL KEYSHA Results - Last 24 hrs: Microbiology 11/22/17 20:51 MRSA Surveillance Culture - Final Nasal, Unspecified NO MRSA ISOLATED Med Orders - Current: Current Medications Discontinued Medications Acetaminophen (Tylenol) 650 mg PO Q4H PRN PRN Reason: analgesia/fever Last Admin: 11/22/17 21:20 Dose: 650 mg Amitriptyline HCl (Elavil) 25 mg PO BEDTIME [facility] Last Admin: 11/22/17 23:00 Dose: 25 mg Atorvastatin Calcium (Lipitor) 20 mg PO BEDTIME [facility] Last Admin: 11/22/17 22:51 Dose: 20 mg Clopidogrel Bisulfate (Plavix) 75 mg PO DAILY [facility] Last Admin: 11/23/17 07:52 Dose: 75 mg Furosemide (Lasix) 20 mg PO QAM [facility] Last Admin: 11/23/17 07:52 Dose: 20 mg Furosemide (Lasix) 40 mg PO DAILY@1200 ZEV Sodium Chloride (Normal Saline) 1,000 mls @ 125 mls/hr IV ASDIRECTED [facility] Last Admin: 11/22/17 23:47 Dose: 125 mls/hr Meclizine HCl (Antivert) 25 mg PO TID PRN PRN Reason: Dizziness Melatonin (Melatonin) 3 mg PO DAILY@2130 [facility] Last Admin: 11/22/17 21:30 Dose: 3 mg Methocarbamol (Robaxin) 750 mg PO ASDIRECTED PRN PRN Reason: Pain Metoclopramide HCl (Reglan) 10 mg PO QID [facility] Last Admin: 11/23/17 07:53 Dose: 10 mg Metoprolol Succinate (Toprol Xl) 25 mg PO DAILY [facility] Last Admin: 11/23/17 07:53 Dose: 25 mg Morphine Sulfate (Morphine) Confirm Administered Dose 2 mg .ROUTE .STK-MED ONE Stop: 11/22/17 17:10 Last Admin: 11/22/17 18:40 Dose: 2 mg Morphine Sulfate (Morphine) 2 mg IVPUSH Q4H PRN PRN Reason: Pain Last Admin: 11/22/17 23:05 Dose: 2 mg Nitroglycerin (Nitrostat) 0.4 mg ASDIRECTED ZEV Non-Formulary Medication (Insulin Pump Syringe, 3 Ml [Minimed [place]]) 1 each MC ASDIRECTED ZEV Non-Formulary Medication (Insulin Pump Syringe, 3 Ml [Minimed [place]]) 1 each ASDIRECTED ZEV Isosorbide Mononitrate 120 Mg Tab.ErOwn Med 1 each PO DAILY [facility] Last Admin: 11/23/17 07:52 Dose: 1 each Omeprazole (Omeprazole) 20 mg PO ACBREAKFAST [facility] Last Admin: 11/23/17 07:19 Dose: Not Given Polyethylene Glycol (Miralax) 17 gm PO ASDIRECTED PRN PRN Reason: Constipation Rivaroxaban (Xarelto) 20 mg PO DAILY [facility] Last Admin: 11/23/17 08:00 Dose: 20 mg Tamsulosin HCl (Flomax) 0.4 mg PO DAILY [facility] Last Admin: 11/23/17 07:51 Dose: 0.4 mg
[2017-11-23] MEDS ORDERED: Melatonin 3 MG Tab PO SCH (21:30)
--- NOTE | 2017-11-24 18:51 | CR ---
DATE OF SERVICE: 11/22/2017 CLINICAL DATA: Chest pain. AP PORTABLE CHEST: Comparison is made to a prior exam dated 10/10/2017. The cardiac pacer and pacer wires remain unchanged in position. The heart size is stable. The visualized lungs appear clear. No evidence of acute intrathoracic disease. [id number] MTDD
== END 2017-11-23 09:20 | disposition home or self-care (01) ==
LOC: LB.ED 16:04 → UNDOADMOB 17:32 → LB.MS 17:32
PROVIDERS: ADMIT Family Medicine; ATTEND Family Medicine
DX: R07.89 Other chest pain (principal); E11.36 Type 2 diabetes mellitus with diabetic cataract; I10 Essential (primary) hypertension; E66.9 Obesity, unspecified; E78.00 Pure hypercholesterolemia, unspecified; I48.91 Unspecified atrial fibrillation; G47.30 Sleep apnea, unspecified; K21.9 Gastro-esophageal reflux disease without esophagitis; F32.9 Major depressive disorder, single episode, unspecified; Z79.4 Long term (current) use of insulin; Z79.899 Other long term (current) drug therapy; Z91.018 Allergy to other foods; Z88.8 Allergy status to other drugs, medicaments and biological substances; Z95.0 Presence of cardiac pacemaker; Z95.810 Presence of automatic (implantable) cardiac defibrillator; Z96.41 Presence of insulin pump (external) (internal); Z99.89 Dependence on other enabling machines and devices
CPT/HCPCS: 36415; 71045; 80048; 80053; 84443; 84484; 85025; 99285; A9270; J2270; J7030; 99217; 99219

== ENCOUNTER 2017-11-24 19:21 | Emergency (ER) | payer MEDICARE, BC ==
--- NOTE | 2017-11-24 20:39 | EDM.PDOC ---
ED HPI GENERAL MEDICAL PROBLEM - General Chief Complaint: Skin Complaint Stated Complaint: general Time Seen by Provider: 11/24/17 20:15 Source of Information: Reports: Patient History Limitations: Reports: No Limitations - History of Present Illness INITIAL COMMENTS - FREE TEXT/NARRATIVE: Patient is a 72 year old man on Xarelto who accidently ripped a wart off of his left forearm. It was oozing blood for 7 hours and he has come in to have the bleeding stopped. No other complaints. Onset: Today Onset Date: 11/24/17 Onset Time: 13:00 Duration: Hour(s): (7), Improving Location: Reports: Upper Extremity, Left Quality: Reports: Other (Oozing blood.) Severity: Mild Improves with: Reports: Other (Pressure.) Worsens with: Reports: None Context: Reports: Other (On anticoagulation.) Associated Symptoms: Reports: No Other Symptoms - Related Data Allergies Allergy/AdvReac Type Severity Reaction Status Date / Time coffee (Coffea arabica) Allergy Headache Verified 09/23/17 20:35 nifedipine [From Procardia] AdvReac Mild Constipatio Verified 09/23/17 20:35 n Home Meds: Home Meds Omeprazole 20 mg PO ACBREAKFAST 05/26/15 [History] atorvaSTATin [Lipitor] 20 mg PO BEDTIME 05/26/15 [History] Polyethylene Glycol 3350 [MiraLAX] 17 gm PO ASDIRECTED PRN 12/13/15 [History] Metoprolol Succinate [Toprol XL] 25 mg PO DAILY 05/25/16 [History] Furosemide 20 mg PO QAM 03/29/17 [History] Furosemide [Lasix] 40 mg PO DAILY@1200 03/29/17 [History] Metoclopramide HCl [Reglan] 10 mg PO QID 03/29/17 [History] Tamsulosin HCl 0.4 mg PO DAILY 03/29/17 [History] Insulin Pump Syringe, 3 mL [Minimed [place]] 1 each MC ASDIRECTED 04/04/17 [ History] Clopidogrel [Plavix] 75 mg PO DAILY 09/09/17 [History] Isosorbide Mononitrate [Isosorbide Mononitrate ER] 60 mg PO DAILY 09/09/17 [ History] Meclizine [Antivert] 25 mg PO TID PRN 09/09/17 [History] Melatonin 3 mg PO DAILY@2130 09/09/17 [History] Methocarbamol 750 mg PO ASDIRECTED PRN 09/09/17 [History] Nitroglycerin [Nitrostat] 0.4 mg SL ASDIRECTED 09/09/17 [History] Rivaroxaban [Xarelto] 20 mg PO DAILY 09/09/17 [History] Insulin Pump Syringe, 3 mL [Minimed [place]] 1 each MC ASDIRECTED 09/10/17 [Rx ] Past Medical History - Past Health History Medical/Surgical History: Denies Medical/Surgical History HEENT History: Reports: Cataract Cardiovascular History: Reports: Afib, Automatic Implantable Cardioverter Defibrillators, High Cholesterol, Hypertension, Pacemaker Other Cardiovascular History: Ablation in July,, angiogram 07/25/2017 Respiratory History: Reports: PE, Pneumonia, Recurrent, Sleep Apnea Other Respiratory History: wears a cpap at night with oxygen at 5 LPM/NC Gastrointestinal History: Reports: Bowel Obstruction, Chronic Constipation, GERD , Other (See Below) Other Gastrointestinal History: duodenal ulcer Genitourinary History: Reports: Renal Calculus, Other (See Below) Other Genitourinary History: prostate stent placed 10/01/2016 Musculoskeletal History: Reports: Back Pain, Chronic Other Musculoskeletal History: Neck pain causing migraines Neurological History: Reports: Migraines Other Neuro History: Patient had vertebrae in neck fused very soon. Resolved some or of headaches. Psychiatric History: Reports: Depression, Emotional Problems Endocrine/Metabolic History: Reports: Diabetes, Type II, Obesity/BMI 30+ Other Endocrine/Metabolic History: pt has insulin pump Hematologic History: Reports: B12 Deficiency, Blood Transfusion(s) Oncologic (Cancer) History: Reports: None Dermatologic History: Reports: Other (See Below) Other Dermatologic History: Had pre-cancer lesion removed to R arm. Has lesion to L wrist. - Infectious Disease History Infectious Disease History: Reports: Chicken Pox, Measles, Rubella - Past Surgical History Head Surgeries/Procedures: Reports: None Cardiovascular Surgical History: Reports: Cardiac Ablation GI Surgical History: Reports: Colonoscopy, Hernia, Inguinal, Other (See Below) Male Surgical History: Reports: Kidney Stone Extraction, Lithotripsy (ESWL) Musculoskeletal Surgical History: Reports: Knee Replacement Social & Family History - Family History Family Medical History: Noncontributory HEENT: Reports: Cataract Cardiac: Reports: MD Respiratory: Reports: COPD GI: Reports: None : Reports: None Endocrine/Metabolic: Reports: Diabetes, type II Oncologic: Reports: Brain, Colon, Lung - Caffeine Use Caffeine Use: Reports: None Other Caffeine Use: diet coke - 3-4 cans /day - Living Situation & Occupation Living situation: Reports: Occupation: Unemployed ED ROS GENERAL - Review of Systems Review Of Systems: ROS reveals no pertinent complaints other than HPI. ED EXAM, SKIN/RASH Exam: See Below Exam Limited By: No Limitations General Appearance: Alert, WD/WN, No Apparent Distress Eye Exam: Bilateral Eye: EOMI, Normal Fundi, Normal Inspection, PERRL Ears: Normal External Exam, Normal Canal, Hearing Grossly Normal, Normal TMs Nose: Normal Inspection, Normal Mucosa, No Blood Throat/Mouth: Normal Inspection, Normal Lips, Normal Teeth, Normal Gums, Normal Oropharynx, Normal Voice, No Airway Compromise Head: Atraumatic, Normocephalic Neck: Normal Inspection, Supple, Non-Tender, Full Range of Motion Respiratory/Chest: No Respiratory Distress Cardiovascular: Normal Peripheral Pulses, Regular Rate, Rhythm, No Edema, No Gallop, No JVD, No Murmur, No Rub GI/Abdominal: Normal Bowel Sounds, Soft, Non-Tender, No Organomegaly, No Distention, No Abnormal Bruit, No Mass Extremities: Normal Range of Motion, Non-Tender, No Pedal Edema, Normal Capillary Refill, Other (Left forearm was dressed and there is no bleeding.) Neurological: Alert, Oriented, CN II-XII Intact, Normal Cognition, Normal Gait, Normal Reflexes, No Motor/Sensory Deficits Psychiatric: Normal Affect, Normal Mood Skin: Other (Dressing on left forearm with no bleeding.) Course - Vital Signs Text/Narrative:: Uneventful ED course. He will take the dressing off tomorrow and if it is restarts oozing he will see Dr. Dumas tomorrow in the clinic. Departure - Departure Time of Disposition: 20:42 Disposition: Home, Self-Care 01 Condition: Good Clinical Impression: Wart viral - Discharge Information Referrals: PCP,None [Primary Care Provider] - Forms: ED Department Discharge Additional Instructions: Leave drsg on until tomorrow. If still oozing follow up with Dr Dumas in clinic.
== END 2017-11-24 20:33 | disposition home or self-care (01) ==
LOC: LB.ED 19:21
DX: B07.9 Viral wart, unspecified (principal); E78.00 Pure hypercholesterolemia, unspecified; I10 Essential (primary) hypertension; E11.9 Type 2 diabetes mellitus without complications; Z88.8 Allergy status to other drugs, medicaments and biological substances; Z91.018 Allergy to other foods; Z79.4 Long term (current) use of insulin; Z79.899 Other long term (current) drug therapy
CPT/HCPCS: 99283

== ENCOUNTER 2017-12-16 18:03 | Emergency (ER) | payer MEDICARE, BC ==
[2013-05-05 12:09] VITALS: BP 133/86
[2017-12-16] MEDS: GI Cocktail Oral Solution 30 ML PO ONE (18:05)
[2017-12-16] MEDS: Morphine 2 MG/ML Syringe IVPUSH ONE ×2 (18:40→20:01)
[2017-12-16] MEDS: Sodium Chloride 0.9% 1,000 ML IV ONE (18:49)
[2017-12-16] MEDS: Morphine 10 MG/ML Syringe IVPUSH ONE (20:07)
[2017-12-16 20:22] VITALS: BP 130/70
--- NOTE | 2017-12-17 00:25 | ER ---
HPI: A 72-year-old male here with his with complaints of chest pain involving the left lower portion of the anterior chest wall that does radiate into the epigastric area involving the left upper quadrant of the abdomen. The patient states this started about 4 hours ago. He rates his pain as 8/10. This came on when he was at rest, watching television. The patient denies any shortness of breath. He states that he has been a little nauseated, but has not vomited. He also complains of dizziness, but this is chronic for him. He is not having any new episodes of dizziness. PAST MEDICAL HISTORY: Includes atypical chest pain on multiple occasions over the last 4 to 5 months. The patient has history of migraines, dehydration, diverticulitis, and is diabetic, insulin dependent, OBJECTIVE: GENERAL APPEARANCE: The patient is awake and alert. No respiratory distress. He rates his pain again at 8/10. VITAL SIGNS: Reviewed. Initial blood pressure 172/81, he is afebrile. O2 sats are good at 98%. Respirations 16. Physical exam, lungs are clear to auscultation with somewhat reduced air exchange throughout the lung lema. CARDIAC: Heart sounds distinct. S1, S2 present. No murmurs. I cannot reproduce any pain with palpation of the lower left anterior chest wall or of the upper left quadrant of the abdomen. GI: Abdomen is protuberant, again nontender to palpation. Bowel sounds are present. SKIN: Warm and dry. LAB AND X-RAY STUDIES: EKG is obtained showing a normal sinus rhythm. The patient was given 30 mL of GI cocktail initially. This did not change his abdominal pain. After this, an IV was started, and he was given morphine 4 mg IV which brought his pain down to a 2/10. Lab work involves a CBC showing a slightly elevated white count of 11.8, hemoglobin is good at 13.4. Comprehensive metabolic panel shows a slightly low potassium level of 3.4, glucose is 240, nonfasting. Troponin is negative. Amylase and lipase are also negative. At this point, a CT of the chest and abdomen were obtained. The CT report shows some mild indistinctness of the pancreas, thought to be possible fatty atrophy, but raises the question of subtle pancreatitis. No other acute findings were noted. DIAGNOSIS: Chest and upper left quadrant abdominal pain. CT findings are suggestive of mild pancreatitis which fits very well with the patient's symptoms. TREATMENT PLAN: He was given 2 more mg of morphine which brought his back down to a one or two over 10. The patient is discharged to go home. I will give him a prescription for Kirvin 5/325. He is to take one tablet as needed every 6 hours, giving 10 tablets I advised the patient to have this filled in the morning. I do want the patient to follow up in the clinic with Dr. Albarado, whom he has seen recently for his chest pain symptoms. I feel that the diagnosis of pancreatitis fits fairly well with the patient's symptoms. The patient is comfortable leaving here and going home with his . He has no further questions. JOSUE/MODL /[id number]
--- NOTE | 2017-12-17 07:27 | CT ---
DATE OF SERVICE: 12/16/17 CLINICAL DATA: chest pain LLQ / Abd pain ULQ. UNENHANCED CHEST CT: Multislice acquisition through the chest without IV contrast was performed. Comparison is made to a prior unenhanced chest CT dated 10/10/17. There are mild atelectatic changes of the dependent portion of both lungs. The lungs are otherwise stable from the prior study. No pneumothorax. No pleural effusions. There is a cardiac pacer overlying the left chest and the distal pacer wires remain unchanged in position. The heart size is normal. There is a small pericardial effusion. There are coronary artery calcifications. No hilar or mediastinal adenopathy. The remainder of the exam is unchanged from the prior. IMPRESSION: No acute abnormalities. UNENHANCED ABDOMEN AND PELVIC CT: Multislice acquisition through the abdomen and pelvis without IV or oral contrast was performed. Comparison is made to a prior unenhanced abdomen and pelvic CT dated 10/26/16. The liver is normal size. There is a small low density lesion within the left lobe of the liver. It was present on the prior exam and most likely represents a small cyst. No other hepatic lesions. The gallbladder is normal size. There is a fluid-fluid level within the gallbladder most likely related to sludge or milk of calcium bile. Small gallstones cannot be completely excluded and gallbladder ultrasound should be considered. No pericholecystic fluid. The spleen appears normal. The pancreas appears normal. The right and left adrenals appear normal. There is mild atrophy of both kidneys. No nephrocalcinosis or nephrolithiasis. No hydronephrosis or hydroureter. The bladder is fluid-filled and appears normal. The prostate is normal size. There are small linear densities within the prostate most likely representing prostate implants. The appendix is not dilated. No evidence of appendicitis. No free air. No free fluid. No dilated loops of bowel. No adenopathy. No aortic aneurysm. There is a small umbilical hernia containing fat. There are subcutaneous calcifications adjacent to the gluteus muscles bilaterally, most likely representing injection granulomas. IMPRESSION: No acute abnormalities. Other findings as discussed above. See above recommendation. [id number] MTDD
== END 2017-12-16 20:52 | disposition home or self-care (01) ==
LOC: LB.ED 18:03
DX: R07.9 Chest pain, unspecified (principal); R10.12 Left upper quadrant pain; E10.9 Type 1 diabetes mellitus without complications
CPT/HCPCS: 36415; 71250; 74176; 80053; 82150; 83690; 84484; 85025; 93005; 96361; 96374; 96376; 99285; A9270; J2270; J7030; 99284

== ENCOUNTER 2018-01-15 19:35 | Emergency (ER) | payer MEDICARE, BC ==
[2013-05-05 12:09] VITALS: BP 133/86
[2018-01-15 20:02] VITALS: BP 131/79
--- NOTE | 2018-01-16 08:06 | CR ---
DATE OF SERVICE: 01/15/18 CLINICAL DATA: Abdominal pain UPRIGHT ABDOMEN: There is a moderate amount of stool present throughout the colon. No evidence of obstruction or ileus. No free air. [id number] [facility]
--- NOTE | 2018-01-16 13:25 | EDM.PDOC ---
ED HPI GENERAL MEDICAL PROBLEM - General Chief Complaint: Abdominal Pain Stated Complaint: abdominal pain Time Seen by Provider: 01/15/18 20:20 Source of Information: Reports: Patient History Limitations: Reports: No Limitations - History of Present Illness INITIAL COMMENTS - FREE TEXT/NARRATIVE: According to patient he claims that he has toast with butter for his supper and within 1 hr after meal has developed cramps in the right upper quadrant. No nausea or vomiting. Pain get sharp and grippy and resolves. has been going on for about 1 hr now. No abdominal bloating. no diarrhea. No fever or chills. Pt has been diagnosed with Gall bladder disease with sludge, has appointment with his Surgeon at [facility], next Saturday. Onset: Today Onset Date: 01/15/18 Onset Time: 20:30 Duration: Waxing/Waning Location: Reports: Abdomen Quality: Reports: Ache Severity: Moderate Improves with: Reports: None Worsens with: Reports: None Associated Symptoms: Denies: Confusion, Chest Pain, Cough, Fever/Chills, Loss of Appetite, Nausea/Vomiting, Rash, Shortness of Breath Treatments MARINA PORTER: Reports: Other (see below) Other Treatments MARINA PORTER: [place] Bilateral Abdominal Pain Score (Numeric/FACES): 7 - Related Data Allergies Allergy/AdvReac Type Severity Reaction Status Date / Time coffee (Coffea arabica) Allergy Headache Verified 01/15/18 19:48 nifedipine [From Procardia] AdvReac Mild Constipatio Verified 01/15/18 19:48 n Home Meds: Home Meds Omeprazole 20 mg PO ACBREAKFAST 05/26/15 [History] atorvaSTATin [Lipitor] 20 mg PO BEDTIME 05/26/15 [History] Polyethylene Glycol 3350 [MiraLAX] 17 gm PO DAILY PRN 12/13/15 [History] Metoprolol Succinate [Toprol XL] 25 mg PO DAILY 05/25/16 [History] Furosemide 20 mg PO QAM 03/29/17 [History] Furosemide [Lasix] 40 mg PO DAILY@1200 03/29/17 [History] Metoclopramide HCl [Reglan] 10 mg PO QID 03/29/17 [History] Tamsulosin HCl 0.4 mg PO DAILY 03/29/17 [History] Insulin Pump Syringe, 3 mL [Minimed [place]] 1 each MC ASDIRECTED 04/04/17 [ History] Clopidogrel [Plavix] 75 mg PO DAILY 09/09/17 [History] Isosorbide Mononitrate [Isosorbide Mononitrate ER] 60 mg PO DAILY 09/09/17 [ History] Meclizine [Antivert] 25 mg PO TID PRN 09/09/17 [History] Melatonin 3 mg PO DAILY@2130 09/09/17 [History] Methocarbamol 750 mg PO ASDIRECTED PRN 09/09/17 [History] Nitroglycerin [Nitrostat] 0.4 mg SL ASDIRECTED 09/09/17 [History] Hydrocodone/Acetaminophen [Hydrocodon-Acetaminophen 5-325] 1 each PO Q4HR PRN [History] Warfarin Sliding Scale [Coumadin Sliding Scale] 1 mg PO DAILY 01/15/18 [History] Past Medical History - Past Health History Medical/Surgical History: Denies Medical/Surgical History HEENT History: Reports: Cataract, Impaired Vision Cardiovascular History: Reports: Afib, Automatic Implantable Cardioverter Defibrillators, High Cholesterol, Hypertension, Pacemaker Other Cardiovascular History: Ablation in July,, angiogram 07/25/2017 Respiratory History: Reports: PE, Pneumonia, Recurrent, Sleep Apnea, SOB Other Respiratory History: wears a cpap at night with oxygen at 5 LPM/NC Gastrointestinal History: Reports: Bowel Obstruction, Chronic Constipation, GERD , Other (See Below) Other Gastrointestinal History: duodenal ulcer Genitourinary History: Reports: Renal Calculus, Other (See Below) Other Genitourinary History: prostate stent placed 10/01/2016 Musculoskeletal History: Reports: Back Pain, Chronic Other Musculoskeletal History: Neck pain causing migraines Neurological History: Reports: Migraines Other Neuro History: Patient had vertebrae in neck fused very soon. Resolved some or of headaches. Psychiatric History: Reports: Depression, Emotional Problems Endocrine/Metabolic History: Reports: Diabetes, Type II, Obesity/BMI 30+ Other Endocrine/Metabolic History: pt has insulin pump Hematologic History: Reports: B12 Deficiency, Blood Transfusion(s) Oncologic (Cancer) History: Reports: None Dermatologic History: Reports: Other (See Below) Other Dermatologic History: Had pre-cancer lesion removed to R arm. Has lesion to L wrist. - Infectious Disease History Infectious Disease History: Reports: Chicken Pox, Measles, Rubella - Past Surgical History Cardiovascular Surgical History: Reports: Cardiac Ablation, Pacer GI Surgical History: Reports: Colonoscopy, Hernia, Inguinal, Other (See Below) Male Surgical History: Reports: Kidney Stone Extraction, Lithotripsy (ESWL) Neurological Surgical History: Reports: C-Spine, Spinal Fusion Musculoskeletal Surgical History: Reports: Knee Replacement Social & Family History - Family History Family Medical History: Noncontributory HEENT: Reports: Cataract Cardiac: Reports: [place] Respiratory: Reports: COPD GI: Reports: None : Reports: None Endocrine/Metabolic: Reports: Diabetes, type II Oncologic: Reports: Brain, Colon, Lung - Caffeine Use Caffeine Use: Reports: None Other Caffeine Use: diet coke - 3-4 cans /day - Living Situation & Occupation Living situation: Reports: Occupation: Unemployed ED ROS GENERAL - Review of Systems Review Of Systems: See Below Constitutional: Denies: Fever, Chills, Malaise, Weakness HEENT: Denies: Sinus Problem, Throat Pain, Throat Swelling Respiratory: Denies: Cough, Sputum Cardiovascular: Denies: Chest Pain, Lightheadedness GI/Abdominal: Reports: Abdominal Pain, Nausea. Denies: Constipation, Diarrhea, Decreased Appetite, Distension, Hematemesis, Hematochezia, Stool Incontinence, Vomiting : Denies: Dysuria, Flank Pain Musculoskeletal: Denies: Joint Pain, Joint Swelling ED EXAM, GENERAL - Physical Exam Exam: See Below Exam Limited By: No Limitations General Appearance: Alert, WD/WN, No Apparent Distress Eye Exam: Bilateral Eye: EOMI, PERRL Ears: Normal External Exam, Normal Canal, Hearing Grossly Normal, Normal TMs Ear Exam: Bilateral Ear: Auricle Normal, Canal Normal, TM normal Nose: Normal Inspection, Normal Mucosa, No Blood Throat/Mouth: Normal Inspection, Normal Lips, Normal Teeth, Normal Gums, Normal Oropharynx, Normal Voice, No Airway Compromise Head: Atraumatic, Normocephalic Neck: Normal Inspection, Supple, Non-Tender, Full Range of Motion Respiratory/Chest: No Respiratory Distress, Lungs Clear, Normal Breath Sounds, No Accessory Muscle Use, Chest Non-Tender Cardiovascular: Normal Peripheral Pulses, Regular Rate, Rhythm, No Edema, No Gallop, No JVD, No Murmur, No Rub GI/Abdominal: Normal Bowel Sounds, Soft, No Organomegaly, No Distention, No Abnormal Bruit, No Mass, Tender (vague RUQ tenderness. No rebound, Negative Burk's sign). No: Guarding, Rigid, Rebound Back Exam: Normal Inspection, Full Range of Motion, NT Extremities: Normal Inspection, Normal Range of Motion, Non-Tender, Normal Capillary Refill, No Pedal Edema Course - Vital Signs Text/Narrative:: Pt's CBC and CMP are stable. His AXR appears normal. Pt reassured that he has Gall bladder colic from eating fatty food. Counseled patient on low fat diet until he has surgery consult. Also patient is not in any distress, hence I have not given pain meds. Reassure that pain will resolve in 2-3 hrs. Advised to return to emergency room if pain worsens. Last Recorded V/S: Last Vital Signs Temp 98.9 F 01/15/18 19:50 Pulse 99 01/15/18 19:50 Resp 22 H 01/15/18 19:50 BP 131/79 01/15/18 19:50 Pulse Ox 96 01/15/18 19:50 - Orders/Labs/Meds Labs: Laboratory Tests 01/15/18 01/15/18 Range/Units 20:30 20:30 WBC 12.8 H (4.0-11.0) K/uL RBC 4.84 (4.50-6.50) M/uL Hgb 13.7 (13.0-18.0) g/dL Hct 41.1 (40.0-54.0) % MCV 85 (76-96) fL MCH 28.3 (27.0-32.0) pg MCHC 33.3 (31.0-35.0) g/dL RDW 14.0 (11.0-16.0) % Plt Count 184 (150-400) K/uL MPV 10.7 H (6.0-10.0) fL Neut % (Auto) 63.9 (45.0-70.0) % Lymph % (Auto) 27.5 (20.0-40.0) % Moca % (Auto) 7.6 (3.0-10.0) % Eos % (Auto) 0.5 L (1.0-5.0) % Baso % (Auto) 0.5 (0.0-0.5) % Neut # (Auto) 8.15 H (2.00-7.50) K/uL Lymph # (Auto) 3.50 (1.50-4.00) K/uL Moca # (Auto) 0.97 H (0.20-0.80) K/uL Eos # (Auto) 0.07 (0.04-0.40) K/uL Baso # (Auto) 0.06 (0.02-0.10) K/uL Sodium 139 (136-145) mmol/L Potassium 3.4 L (3.5-5.1) mmol/L Chloride 102 (98-107) mmol/L Carbon Dioxide 28.4 (21.0-32.0) mmol/L Anion Gap 12.0 (5.0-15.0) mmol/L BUN 24 D (8-26) mg/dL Creatinine 1.50 H (0.70-1.30) mg/dL Est Cr Clr Drug Dosing TNP Estimated GFR (MDRD) 46 L (>60) MLS/MIN BUN/Creatinine Ratio 16.0 (6-25) Glucose 208 H (74-100) mg/dL Calcium 8.8 (8.5-10.1) mg/dL Total Bilirubin 0.8 (0.0-1.0) mg/dL AST 16 (15-37) U/L ALT 26 (12-78) U/L Alkaline Phosphatase 119 H (46-116) U/L Total Protein 7.4 (6.4-8.2) g/dL Albumin 3.5 (3.4-5.0) g/dL Globulin 3.9 (2.2-4.2) g/dL Albumin/Globulin Ratio 0.9 (0.8-2.0) Departure - Departure Time of Disposition: 21:00 Disposition: Home, Self-Care 01 Condition: Good Clinical Impression: Gall bladder stones - Discharge Information Instructions: Gallbladder Eating Plan, Cholecystitis Referrals: PCP,None [Primary Care Provider] - Forms: ED Department Discharge, ED Return to Work/School Form Additional Instructions: Follow a bland, low fat diet. Avoid fatty and fried foods. Follow up as needed- if you develop nausea, vomiting, fever, severe abdominal pain. - Problem List & Annotations (1) Gall bladder stones SNOMED Code(s): 085666255 Code(s): K80.20 - CALCULUS OF GALLBLADDER W/O CHOLECYSTITIS W/O OBSTRUCTION Status: Acute - Problem List Review Problem List Initiated/Reviewed/Updated: Yes - Assessment/Plan Assessment:: Gall bladder Colic Plan: Pt's CBC and CMP are stable. His AXR appears normal. Pt reassured that he has Gall bladder colic from eating fatty food. Counseled patient on low fat diet until he has surgery consult. Also patient is not in any distress, hence I have not given pain meds. Reassure that pain will resolve in 2-3 hrs. Advised to return to emergency room if pain worsens.
== END 2018-01-15 21:07 | disposition home or self-care (01) ==
LOC: LB.ED 19:35
DX: K80.20 Calculus of gallbladder without cholecystitis without obstruction (principal); I10 Essential (primary) hypertension; E11.9 Type 2 diabetes mellitus without complications; Z88.8 Allergy status to other drugs, medicaments and biological substances; Z79.899 Other long term (current) drug therapy; Z79.4 Long term (current) use of insulin; Z79.01 Long term (current) use of anticoagulants
CPT/HCPCS: 36415; 74018; 80053; 85025; 99284

== ENCOUNTER 2018-01-27 20:41 | Emergency (ER) | payer MEDICARE, BC ==
--- NOTE | 2018-01-27 21:13 | EDM.PDOC ---
ED HPI GENERAL MEDICAL PROBLEM - General Chief Complaint: General Stated Complaint: ABDOMINAL PAIN Time Seen by Provider: 01/27/18 20:41 Source of Information: Reports: Patient History Limitations: Reports: No Limitations - History of Present Illness INITIAL COMMENTS - FREE TEXT/NARRATIVE: This is a 72yo M with chest pain around the abdomen radiating to the chest. He has had this pain since this am. He has 8/10 pain the whole day. He denies any other issues - no fever, no chills, no shortness of breath. He states he does have gallbladder issues that he is going for surgery on Saturday. He denies other complaints. Onset: Gradual Duration: Day(s):, Getting Worse Location: Reports: Abdomen Severity: Moderate Improves with: Reports: None Worsens with: Reports: None Associated Symptoms: Reports: No Other Symptoms - Related Data Allergies Allergy/AdvReac Type Severity Reaction Status Date / Time coffee (Coffea arabica) Allergy Headache Verified 01/28/18 02:03 nifedipine [From Procardia] AdvReac Mild Constipatio Verified 01/28/18 02:03 n Home Meds: Home Meds Omeprazole 20 mg PO ACBREAKFAST 05/26/15 [History] atorvaSTATin [Lipitor] 20 mg PO BEDTIME 05/26/15 [History] Polyethylene Glycol 3350 [MiraLAX] 17 gm PO DAILY PRN 12/13/15 [History] Metoprolol Succinate [Toprol XL] 25 mg PO DAILY 05/25/16 [History] Furosemide 20 mg PO QAM 03/29/17 [History] Furosemide [Lasix] 40 mg PO DAILY@1200 03/29/17 [History] Metoclopramide HCl [Reglan] 10 mg PO QID 03/29/17 [History] Tamsulosin HCl 0.4 mg PO DAILY 03/29/17 [History] Insulin Pump Syringe, 3 mL [Minimed [place]] 1 each MC ASDIRECTED 04/04/17 [ History] Clopidogrel [Plavix] 75 mg PO DAILY 09/09/17 [History] Isosorbide Mononitrate [Isosorbide Mononitrate ER] 60 mg PO DAILY 09/09/17 [ History] Meclizine [Antivert] 25 mg PO TID PRN 09/09/17 [History] Melatonin 3 mg PO DAILY@2130 09/09/17 [History] Methocarbamol 750 mg PO ASDIRECTED PRN 09/09/17 [History] Nitroglycerin [Nitrostat] 0.4 mg SL ASDIRECTED 09/09/17 [History] Hydrocodone/Acetaminophen [Hydrocodon-Acetaminophen 5-325] 1 each PO Q4HR PRN [History] Warfarin Sliding Scale [Coumadin Sliding Scale] 1 mg PO DAILY 01/15/18 [History] Past Medical History - Past Health History Medical/Surgical History: Denies Medical/Surgical History HEENT History: Reports: Cataract, Impaired Vision Cardiovascular History: Reports: Afib, Automatic Implantable Cardioverter Defibrillators, High Cholesterol, Hypertension, Pacemaker Other Cardiovascular History: Ablation in July,, angiogram 07/25/2017 Respiratory History: Reports: PE, Pneumonia, Recurrent, Sleep Apnea, SOB Other Respiratory History: wears a cpap at night with oxygen at 5 LPM/[place] Gastrointestinal History: Reports: Bowel Obstruction, Chronic Constipation, GERD , Other (See Below) Other Gastrointestinal History: duodenal ulcer Genitourinary History: Reports: Renal Calculus, Other (See Below) Other Genitourinary History: prostate stent placed 10/01/2016 Musculoskeletal History: Reports: Back Pain, Chronic Other Musculoskeletal History: Neck pain causing migraines Neurological History: Reports: Migraines Other Neuro History: Patient had vertebrae in neck fused very soon. Resolved some or of headaches. Psychiatric History: Reports: Depression, Emotional Problems Endocrine/Metabolic History: Reports: Diabetes, Type II, Obesity/BMI 30+ Other Endocrine/Metabolic History: pt has insulin pump Hematologic History: Reports: B12 Deficiency, Blood Transfusion(s) Oncologic (Cancer) History: Reports: None Dermatologic History: Reports: Other (See Below) Other Dermatologic History: Had pre-cancer lesion removed to R arm. Has lesion to L wrist. - Infectious Disease History Infectious Disease History: Reports: Chicken Pox, Measles, Rubella - Past Surgical History Cardiovascular Surgical History: Reports: Cardiac Ablation, Pacer GI Surgical History: Reports: Colonoscopy, Hernia, Inguinal, Other (See Below) Male Surgical History: Reports: Kidney Stone Extraction, Lithotripsy (ESWL) Neurological Surgical History: Reports: C-Spine, Spinal Fusion Musculoskeletal Surgical History: Reports: Knee Replacement Social & Family History - Family History Family Medical History: Noncontributory HEENT: Reports: Cataract Cardiac: Reports: [place] Respiratory: Reports: COPD GI: Reports: None : Reports: None Endocrine/Metabolic: Reports: Diabetes, type II Oncologic: Reports: Brain, Colon, Lung - Caffeine Use Caffeine Use: Reports: None Other Caffeine Use: diet coke - 3-4 cans /day - Living Situation & Occupation Living situation: Reports: Occupation: Unemployed ED ROS GENERAL - Review of Systems Review Of Systems: ROS reveals no pertinent complaints other than HPI. ED EXAM, GENERAL - Physical Exam Exam: See Below Exam Limited By: No Limitations General Appearance: Alert, WD/WN, Moderate Distress Eye Exam: Bilateral Eye: EOMI, PERRL Ears: Normal External Exam Nose: Normal Inspection Throat/Mouth: Normal Inspection Head: Atraumatic, Normocephalic Neck: Normal Inspection Respiratory/Chest: No Respiratory Distress, Lungs Clear, Normal Breath Sounds Cardiovascular: Normal Peripheral Pulses, Regular Rate, Rhythm Peripheral Pulses: 2+: Dorsalis Pedis (L), Dorsalis Pedis (R) GI/Abdominal: Normal Bowel Sounds Back Exam: Normal Inspection Extremities: Normal Inspection Neurological: Alert, Oriented, CN II-XII Intact Psychiatric: Normal Affect, Normal Mood Skin Exam: Warm, Dry, Intact Course - Orders/Labs/Meds Orders: Active Orders 24 hr Category Date Time Status Cardiac Monitoring [RC] .As Directed Care 01/27/18 20:35 Active EKG Documentation Completion [RC] ASDIRECTED Care 01/27/18 21:00 Active Peripheral IV Care [RC] . DIRECTED Care 01/27/18 21:51 Active Labs: Laboratory Tests 01/27/18 01/27/18 01/27/18 Range/Units 21:10 21:10 21:10 WBC 11.7 H (4.0-11.0) K/uL RBC 4.61 (4.50-6.50) M/uL Hgb 13.1 (13.0-18.0) g/dL Hct 39.0 L (40.0-54.0) % MCV 85 (76-96) fL MCH 28.4 (27.0-32.0) pg MCHC 33.6 (31.0-35.0) g/dL RDW 14.0 (11.0-16.0) % Plt Count 169 (150-400) K/uL MPV 10.9 H (6.0-10.0) fL Neut % (Auto) 67.4 (45.0-70.0) % Lymph % (Auto) 24.7 (20.0-40.0) % [place] % (Auto) 6.8 (3.0-10.0) % Eos % (Auto) 0.8 L (1.0-5.0) % Baso % (Auto) 0.3 (0.0-0.5) % Neut # (Auto) 7.88 H (2.00-7.50) K/uL Lymph # (Auto) 2.88 (1.50-4.00) K/uL [place] # (Auto) 0.79 (0.20-0.80) K/uL Eos # (Auto) 0.09 (0.04-0.40) K/uL Baso # (Auto) 0.04 (0.02-0.10) K/uL Sodium 138 (136-145) mmol/L Potassium 3.7 (3.5-5.1) mmol/L Chloride 103 (98-107) mmol/L Carbon Dioxide 24.8 (21.0-32.0) mmol/L Anion Gap 13.9 (5.0-15.0) mmol/L BUN 18 D (8-26) mg/dL Creatinine 1.27 (0.70-1.30) mg/dL Est Cr Clr Drug Dosing TNP Estimated GFR (MDRD) 56 L (>60) MLS/MIN BUN/Creatinine Ratio 14.2 (6-25) Glucose 253 H (74-100) mg/dL Calcium 8.6 (8.5-10.1) mg/dL Total Bilirubin 0.6 (0.0-1.0) mg/dL AST 16 (15-37) U/L ALT 27 (12-78) U/L Alkaline Phosphatase 121 H (46-116) U/L Troponin I < 0.017 (0.000-0.060) ng/mL Total Protein 7.0 (6.4-8.2) g/dL Albumin 3.4 (3.4-5.0) g/dL Globulin 3.6 (2.2-4.2) g/dL Albumin/Globulin Ratio 0.9 (0.8-2.0) Lipase 117 (73-393) U/L TSH, Ultra Sensitive 3.325 D (0.358-3.740) uIU/mL Meds: Medications Discontinued Medications Generic Name Dose Route Start Last Admin Trade Name Awilda PRN Reason Stop Dose Admin Al Hydroxide/Mg Hydroxide 30 ml 01/27/18 22:04 01/27/18 22:05 Gi Cocktail PO 01/27/18 22:05 30 ml ONETIME ONE Administration Departure - Departure Time of Disposition: 22:30 Disposition: Home, Self-Care 01 Condition: Good Clinical Impression: Chest pain Qualifiers: Chest pain type: other chest pain Qualified Code(s): R07.89 - Other chest pain ; R07.8 - Other chest pain - Discharge Information Referrals: PCP,None [Primary Care Provider] - Forms: ED Department Discharge - Problem List & Annotations (1) Chest pain SNOMED Code(s): 05403852 Code(s): R07.9 - CHEST PAIN, UNSPECIFIED Status: Acute Annotation/Comment :: 09/23/17 - 1. Chest pain with a negative initial cardiac workup. 2. Hypokalemia. Qualifiers: Chest pain type: other chest pain Qualified Code(s): R07.89 - Other chest pain; R07.8 - Other chest pain - Problem List Review Problem List Initiated/Reviewed/Updated: Yes - My Orders Last 24 Hours: My Active Orders 01/27/18 20:35 Cardiac Monitoring [RC] .As Directed 01/27/18 21:00 EKG Documentation Completion [RC] ASDIRECTED 01/27/18 21:51 Peripheral IV Care [RC] . DIRECTED - Assessment/Plan Last 24 Hours: My Active Orders 01/27/18 20:35 Cardiac Monitoring [RC] .As Directed 01/27/18 21:00 EKG Documentation Completion [RC] ASDIRECTED 01/27/18 21:51 Peripheral IV Care [RC] . DIRECTED Plan: Counseled on continued monitoring and f/u. Discussed chest pain and management. F/u as needed if symptoms return and f/u in clinic in the next 1-2 days.
[2018-01-27] MEDS ORDERED: GI Cocktail Oral Solution 30 ML PO ONE (22:04)
--- NOTE | 2018-01-28 11:52 | CT ---
DATE OF SERVICE: 01/27/2018 CLINICAL DATA: Chest pain. UNENHANCED CHEST CT: Multislice acquisition through the chest without IV contrast was performed. Comparison is made to a prior exam dated 12/16/2017. There are minimal atelectatic changes in the dependent portion of the lungs. There are small nodules in the right middle lobe and right lower lobe that are unchanged from the prior exam. The lungs are otherwise clear. No pneumothorax. No pleural effusions. The cardiac pacer wires remain unchanged in position. The heart size is normal. No significant pericardial effusion. No hilar or mediastinal adenopathy. No changes from the prior exam. IMPRESSION: No acute abnormalities. UNENHANCED ABDOMEN AND PELVIC CT: Multislice acquisition through the abdomen and pelvis without IV or oral contrast was performed. Comparison made to a prior exam dated 12/16/2017. The liver, spleen, pancreas, right and left adrenals, and right and left kidneys are stable. There is a fluid-fluid level within the gallbladder with higher attenuation material in dependent gallbladder. This may represent milk of calcium bile. Gallstones cannot be excluded. Gallbladder ultrasound is recommended. The bladder is fluid filled and appears normal. There are metallic implants within the prostate. The remainder of the exam is unchanged from the prior. [id number] [facility]
== END 2018-01-27 22:15 | disposition home or self-care (01) ==
LOC: LB.ED 20:41
DX: R07.89 Other chest pain (principal); I10 Essential (primary) hypertension; E11.9 Type 2 diabetes mellitus without complications; E66.9 Obesity, unspecified; Z79.01 Long term (current) use of anticoagulants; Z79.4 Long term (current) use of insulin; Z79.899 Other long term (current) drug therapy
CPT/HCPCS: 36415; 71250; 74176; 80053; 83690; 84443; 84484; 85025; 93005; 99285-25; A9270-GY

== ENCOUNTER 2018-11-10 00:53 | Emergency (ER) | payer BC, MEDICARE ==
[2018-11-10] MEDS ORDERED: Nitroglycerin 0.4 MG Tab.SL SL PRN (01:07)
[2018-11-10] MEDS ORDERED: Aspirin 81 MG Tab.Chew PO ONE (01:07)
[2018-11-10] MEDS ORDERED: Sodium Chloride 0.9% 10 ML Syringe FLUSH PRN (01:07)
[2018-11-10] MEDS ORDERED: Ketorolac 30 MG/ML SDV ONE (01:49)
[2018-11-10] MEDS ORDERED: Ketorolac 60 MG/2 ML SDV IVPUSH ONE (01:53)
[2018-11-10 02:12] VITALS: BP 129/63
--- NOTE | 2018-11-10 02:35 | EDM.PDOC ---
ED HPI GENERAL MEDICAL PROBLEM - General Chief Complaint: Chest Pain Stated Complaint: CHEST PAIN Time Seen by Provider: 11/10/18 01:27 Source of Information: Reports: Patient, Family History Limitations: Reports: No Limitations - History of Present Illness INITIAL COMMENTS - FREE TEXT/NARRATIVE: This is a 73yo M here for chest pains that radiates from the mid to left chest area. He states the pain is worse with some movement and with breathing. He rates it a 5/10 pain. He denies fever or chills. No diaphoresis or other concerns. He did state he felt an abnormal heart rhythm and a possible pause in his heart for longer than 4 beats. He denies any syncope or lightheadedness or dizziness. Onset: Today, Sudden Duration: Hour(s):, Intermittent Location: Reports: Chest Quality: Reports: Ache Severity: Moderate Improves with: Reports: None Worsens with: Reports: Movement Associated Symptoms: Reports: Chest Pain Treatments POURER: Reports: Nitroglycerin right chest pain Pain Score (Numeric/FACES): 8 - Related Data Allergies Allergy/AdvReac Type Severity Reaction Status Date / Time coffee (Coffea arabica) Allergy Headache Verified 11/10/18 01:39 nifedipine [From Procardia] AdvReac Mild Constipatio Verified 11/10/18 01:39 n Home Meds: Home Meds Omeprazole 20 mg PO ACBREAKFAST 05/26/15 [History] atorvaSTATin [Lipitor] 20 mg PO BEDTIME 05/26/15 [History] Polyethylene Glycol 3350 [MiraLAX] 17 gm PO DAILY PRN 12/13/15 [History] Metoprolol Succinate [Toprol XL] 25 mg PO DAILY 05/25/16 [History] Furosemide 20 mg PO QAM 03/29/17 [History] Furosemide [Lasix] 40 mg PO DAILY@1200 03/29/17 [History] Metoclopramide HCl [Reglan] 10 mg PO QID 03/29/17 [History] Tamsulosin HCl 0.4 mg PO DAILY 03/29/17 [History] Insulin Pump Syringe, 3 mL [Minimed [place]] 1 each MC ASDIRECTED 04/04/17 [ History] Clopidogrel [Plavix] 75 mg PO DAILY 09/09/17 [History] Isosorbide Mononitrate [Isosorbide Mononitrate ER] 60 mg PO DAILY 09/09/17 [ History] Meclizine [Antivert] 25 mg PO TID PRN 09/09/17 [History] Melatonin 3 mg PO DAILY@2130 09/09/17 [History] Methocarbamol 750 mg PO ASDIRECTED PRN 09/09/17 [History] Nitroglycerin [Nitrostat] 0.4 mg SL ASDIRECTED 09/09/17 [History] Hydrocodone/Acetaminophen [Hydrocodon-Acetaminophen 5-325] 1 each PO Q4HR PRN [History] Warfarin Sliding Scale [Coumadin Sliding Scale] 1 mg PO DAILY 01/15/18 [History] Past Medical History - Past Health History Medical/Surgical History: Denies Medical/Surgical History HEENT History: Reports: Cataract, Impaired Vision, Other (See Below) Other HEENT History: Sarai vargas Cardiovascular History: Reports: Afib, Angina, Automatic Implantable Cardioverter Defibrillators, High Cholesterol, Hypertension, Pacemaker, SOB on Exertion Other Cardiovascular History: Ablation in July,, angiogram 07/25/2017 Respiratory History: Reports: PE, Pneumonia, Recurrent, Sleep Apnea, SOB Other Respiratory History: wears a cpap at night with oxygen at 5 LPM/[place] Gastrointestinal History: Reports: Bowel Obstruction, Chronic Constipation, GERD , Other (See Below) Other Gastrointestinal History: duodenal ulcer Genitourinary History: Reports: Renal Calculus, Other (See Below) Other Genitourinary History: prostate stent placed 10/01/2016 Musculoskeletal History: Reports: Back Pain, Chronic Other Musculoskeletal History: Neck pain causing migraines Neurological History: Reports: Migraines Other Neuro History: Patient had vertebrae in neck fused. Resolved some or most of headaches. Psychiatric History: Reports: Depression, Emotional Problems Endocrine/Metabolic History: Reports: Diabetes, Type II, Obesity/BMI 30+ Other Endocrine/Metabolic History: pt has insulin pump Hematologic History: Reports: B12 Deficiency, Blood Transfusion(s) Oncologic (Cancer) History: Reports: None Dermatologic History: Reports: Other (See Below) Other Dermatologic History: Had pre-cancer lesion removed to R arm. Has lesion to L wrist. - Infectious Disease History Infectious Disease History: Reports: Chicken Pox, Measles, Rubella - Past Surgical History HEENT Surgical History: Reports: Tonsillectomy Cardiovascular Surgical History: Reports: Cardiac Ablation, Pacer Respiratory Surgical History: Reports: None GI Surgical History: Reports: Colonoscopy, Hernia, Inguinal, Other (See Below) Male Surgical History: Reports: Kidney Stone Extraction, Lithotripsy (ESWL) Endocrine Surgical History: Reports: None Neurological Surgical History: Reports: C-Spine, Spinal Fusion Musculoskeletal Surgical History: Reports: Knee Replacement Social & Family History - Family History Family Medical History: Noncontributory HEENT: Reports: Cataract Cardiac: Reports: [place] Respiratory: Reports: COPD GI: Reports: None : Reports: None Endocrine/Metabolic: Reports: Diabetes, type II Oncologic: Reports: Brain, Colon, Lung - Caffeine Use Caffeine Use: Reports: None Other Caffeine Use: diet coke - 3-4 cans /day - Living Situation & Occupation Living situation: Reports: Occupation: Unemployed ED ROS GENERAL - Review of Systems Review Of Systems: ROS reveals no pertinent complaints other than HPI. ED EXAM, GENERAL - Physical Exam Exam: See Below Exam Limited By: No Limitations General Appearance: Alert, WD/WN, No Apparent Distress Eye Exam: Bilateral Eye: EOMI, PERRL Ears: Normal External Exam Nose: Normal Inspection Throat/Mouth: Normal Inspection Head: Atraumatic, Normocephalic Neck: Normal Inspection, Supple, Non-Tender Respiratory/Chest: No Respiratory Distress, Lungs Clear, Normal Breath Sounds, Other (palpable tenderness of the chest wall intercostal area - reproducible and patient confirms the same pain) Cardiovascular: Normal Peripheral Pulses, Regular Rate, Rhythm, No Edema Peripheral Pulses: 2+: Dorsalis Pedis (L), Dorsalis Pedis (R) GI/Abdominal: Normal Bowel Sounds, Soft, Non-Tender Back Exam: Normal Inspection Extremities: Normal Inspection Neurological: Alert, Oriented, CN II-XII Intact Psychiatric: Normal Affect, Normal Mood Skin Exam: Warm, Dry, Intact Course - Vital Signs Last Recorded V/S: Last Vital Signs Temp 36.0 C 11/10/18 01:27 Pulse 81 11/10/18 02:11 Resp 20 11/10/18 02:11 BP 129/63 11/10/18 02:11 Pulse Ox 97 11/10/18 02:11 - Orders/Labs/Meds Orders: Active Orders 24 hr Category Date Time Status Cardiac Monitoring [RC] .As Directed Care 11/10/18 01:08 Active EKG Documentation Completion [RC] ASDIRECTED Care 06/10/19 01:09 Active Chest 1V Frontal [CR] Stat Exams 11/10/18 01:09 Ordered Peripheral IV Insertion Adult [OM.PC] Stat Oth 11/10/18 01:07 Ordered Labs: Laboratory Tests 11/10/18 11/10/18 Range/Units 01:40 01:40 WBC 12.9 H D (4.0-11.0) K/uL RBC 5.05 (4.50-6.50) M/uL Hgb 13.7 (13.0-18.0) g/dL Hct 42.2 (40.0-54.0) % MCV 84 (76-96) fL MCH 27.1 (27.0-32.0) pg MCHC 32.5 (31.0-35.0) g/dL RDW 16.0 (11.0-16.0) % Plt Count 146 L D (150-400) K/uL MPV 11.2 H (6.0-10.0) fL Neut % (Auto) 60.8 (45.0-70.0) % Lymph % (Auto) 29.8 (20.0-40.0) % [place] % (Auto) 7.5 (3.0-10.0) % Eos % (Auto) 1.5 (1.0-5.0) % Baso % (Auto) 0.4 (0.0-0.5) % Neut # (Auto) 7.81 H (2.00-7.50) K/uL Lymph # (Auto) 3.83 (1.50-4.00) K/uL [place] # (Auto) 0.97 H (0.20-0.80) K/uL Eos # (Auto) 0.19 (0.04-0.40) K/uL Baso # (Auto) 0.05 (0.02-0.10) K/uL Sodium 141 (136-145) mmol/L Potassium 3.7 (3.5-5.1) mmol/L Chloride 105 (98-107) mmol/L Carbon Dioxide 28.5 (21.0-32.0) mmol/L Anion Gap 11.2 (5.0-15.0) mmol/L BUN 31 H D (8-26) mg/dL Creatinine 1.60 H (0.70-1.30) mg/dL Est Cr Clr Drug Dosing 46.48 mL/min Estimated GFR (MDRD) 43 L (>60) MLS/MIN BUN/Creatinine Ratio 19.4 (6-25) Glucose 88 D (74-100) mg/dL Calcium 8.5 (8.5-10.1) mg/dL Total Bilirubin 0.5 (0.0-1.0) mg/dL AST 15 (15-37) U/L ALT 32 (12-78) U/L Alkaline Phosphatase 100 (46-116) U/L Troponin I < 0.017 (0.000-0.060) ng/mL Total Protein 6.8 (6.4-8.2) g/dL Albumin 3.3 L (3.4-5.0) g/dL Globulin 3.5 (2.2-4.2) g/dL Albumin/Globulin Ratio 0.9 (0.8-2.0) Meds: Medications Discontinued Medications Generic Name Dose Route Start Last Admin Trade Name Freq PRN Reason Stop Dose Admin Aspirin 324 mg 11/10/18 01:07 11/10/18 01:58 Aspirin PO 11/10/18 01:08 Not Given ONETIME ONE Ketorolac Tromethamine Confirm 11/10/18 01:49 11/10/18 01:59 Toradol Administered 11/10/18 01:50 Not Given Dose 30 mg .ROUTE .STK-MED ONE Ketorolac Tromethamine 15 mg 11/10/18 01:53 11/10/18 01:59 Toradol IVPUSH 11/10/18 01:54 15 mg ONETIME ONE Administration Nitroglycerin 0.4 mg 11/10/18 01:07 Nitrostat SL 11/11/18 01:09 Q5M PRN Chest Pain Sodium Chloride 10 ml 11/10/18 01:07 Saline Flush FLUSH ASDIRECTED PRN Keep Vein Open Departure - Departure Time of Disposition: 02:15 Disposition: Home, Self-Care 01 Condition: Good Clinical Impression: Intercostal muscle strain Qualifiers: Encounter type: initial encounter Qualified Code(s): S29.011A - Strain of muscle and tendon of front wall of thorax, initial encounter Instructions: Muscle Strain, [id number] Referrals: PCP,None [Primary Care Provider] - Forms: ED Department Discharge Additional Instructions: You will receive a call from Dr. Dumas if he hears from the pacemaker rep today. Follow up in the clinic or the ER if your symptoms get worse or change. Use a heating pad on the chest muscles to help relieve the chest pain, it can take up to 3 weeks for the muscles to repair. The heart muscles is beating well at this time, the troponin is also negative. Take care of arm and chest muscle movements, take it easy. Tylenol as needed for pain. Call if you have any further questions or concerns. - Problem List & Annotations (1) Intercostal muscle strain SNOMED Code(s): 94714708475892 Code(s): S29.011A - STRAIN OF MUSCLE AND TENDON OF FRONT WALL OF THORAX, INIT Status: Acute Qualifiers: Encounter type: initial encounter Qualified Code(s): S29.011A - Strain of muscle and tendon of front wall of thorax, initial encounter - Problem List Review Problem List Initiated/Reviewed/Updated: Yes - My Orders Last 24 Hours: My Active Orders 11/10/18 01:07 Peripheral IV Insertion Adult [OM.PC] Stat 11/10/18 01:08 Cardiac Monitoring [RC] .As Directed 11/10/18 01:09 EKG Documentation Completion [RC] ASDIRECTED Chest 1V Frontal [CR] Stat - Assessment/Plan Last 24 Hours: My Active Orders 11/10/18 01:07 Peripheral IV Insertion Adult [OM.PC] Stat 11/10/18 01:08 Cardiac Monitoring [RC] .As Directed 11/10/18 01:09 EKG Documentation Completion [RC] ASDIRECTED Chest 1V Frontal [CR] Stat Plan: Counseled on supportive care and conservative management. Discussed further monitoring and f/u as needed for further or other symptoms. Discussed close monitoring and rtc as scheduled and as directed.
== END 2018-11-10 02:26 | disposition home or self-care (01) ==
LOC: LB.ED 00:53
DX: S29.011A Strain of muscle and tendon of front wall of thorax, initial encounter (principal); F32.9 Major depressive disorder, single episode, unspecified; E11.9 Type 2 diabetes mellitus without complications; Z88.8 Allergy status to other drugs, medicaments and biological substances; Z79.899 Other long term (current) drug therapy; X50.9XXA Other and unspecified overexertion or strenuous movements or postures, initial encounter
CPT/HCPCS: 36415; 80053; 84484; 85025; 93005; 96374; 99285-25; J1885

== ENCOUNTER 2018-11-21 16:43 | Emergency (ER) | payer MEDICARE, BC ==
--- NOTE | 2018-11-21 17:08 | EDM.PDOC ---
ED HPI GENERAL MEDICAL PROBLEM - General Stated Complaint: CAN'T BREATH Time Seen by Provider: 11/21/18 16:45 Source of Information: Reports: Patient History Limitations: Reports: No Limitations - History of Present Illness INITIAL COMMENTS - FREE TEXT/NARRATIVE: According to patient he claims that around 4:15 PM. Pt got out of his car and was walking towards the pharmacy. He started to have left lower chest pain with radiation of pain to the interscapular region. The pain is dull achy pain, did not get better and hence came into emergency .Rates his pain at 8/10. No nausea or vomiting. [place] a little short of breath, which resolved by the time he came into emergency room.Still continue to have left sided chest pain. Pt does have history of CAD and also has pacemaker. Onset: Today Onset Date: 11/21/18 Onset Time: 16:15 Duration: Constant Location: Reports: Chest Quality: Reports: Ache Severity: Moderate Improves with: Reports: None Worsens with: Reports: None Associated Symptoms: Reports: Chest Pain, Shortness of Breath. Denies: Confusion, Cough, Diaphoresis, Fever/Chills, Headaches, Nausea/Vomiting, Rash, Seizure, Syncope, Weakness left chest Pain Score (Numeric/FACES): 8 - Related Data Allergies Allergy/AdvReac Type Severity Reaction Status Date / Time coffee (Coffea arabica) Allergy Headache Verified 11/10/18 01:39 nifedipine [From Procardia] AdvReac Mild Constipatio Verified 11/10/18 01:39 n Home Meds: Home Meds Omeprazole 20 mg PO ACBREAKFAST 05/26/15 [History] atorvaSTATin [Lipitor] 20 mg PO BEDTIME 05/26/15 [History] Polyethylene Glycol 3350 [MiraLAX] 17 gm PO DAILY PRN 12/13/15 [History] Metoprolol Succinate [Toprol XL] 25 mg PO DAILY 05/25/16 [History] Furosemide 20 mg PO QAM 03/29/17 [History] Furosemide [Lasix] 40 mg PO DAILY@1200 03/29/17 [History] Metoclopramide HCl [Reglan] 10 mg PO QID 03/29/17 [History] Tamsulosin HCl 0.4 mg PO DAILY 03/29/17 [History] Insulin Pump Syringe, 3 mL [Minimed [place]] 1 each MC ASDIRECTED 04/04/17 [ History] Clopidogrel [Plavix] 75 mg PO DAILY 09/09/17 [History] Isosorbide Mononitrate [Isosorbide Mononitrate ER] 60 mg PO DAILY 09/09/17 [ History] Meclizine [Antivert] 25 mg PO TID PRN 09/09/17 [History] Melatonin 3 mg PO DAILY@2130 09/09/17 [History] Methocarbamol 750 mg PO ASDIRECTED PRN 09/09/17 [History] Nitroglycerin [Nitrostat] 0.4 mg SL ASDIRECTED 09/09/17 [History] Hydrocodone/Acetaminophen [Hydrocodon-Acetaminophen 5-325] 1 each PO Q4HR PRN [History] Warfarin Sliding Scale [Coumadin Sliding Scale] 1 mg PO DAILY 01/15/18 [History] Past Medical History - Past Health History Medical/Surgical History: Denies Medical/Surgical History HEENT History: Reports: Cataract, Impaired Vision, Other (See Below) Other HEENT History: Sarai vargas Cardiovascular History: Reports: Afib, Angina, Automatic Implantable Cardioverter Defibrillators, High Cholesterol, Hypertension, Pacemaker, SOB on Exertion Other Cardiovascular History: Ablation in July,, angiogram 07/25/2017 Respiratory History: Reports: PE, Pneumonia, Recurrent, Sleep Apnea, SOB Other Respiratory History: wears a cpap at night with oxygen at 5 LPM/NC Gastrointestinal History: Reports: Bowel Obstruction, Chronic Constipation, GERD , Other (See Below) Other Gastrointestinal History: duodenal ulcer Genitourinary History: Reports: Renal Calculus, Other (See Below) Other Genitourinary History: prostate stent placed 10/01/2016 Musculoskeletal History: Reports: Back Pain, Chronic Other Musculoskeletal History: Neck pain causing migraines Neurological History: Reports: Migraines Other Neuro History: Patient had vertebrae in neck fused. Resolved some or most of headaches. Psychiatric History: Reports: Depression, Emotional Problems Endocrine/Metabolic History: Reports: Diabetes, Type II, Obesity/BMI 30+ Other Endocrine/Metabolic History: pt has insulin pump Hematologic History: Reports: B12 Deficiency, Blood Transfusion(s) Oncologic (Cancer) History: Reports: None Dermatologic History: Reports: Other (See Below) Other Dermatologic History: Had pre-cancer lesion removed to R arm. Has lesion to L wrist. - Infectious Disease History Infectious Disease History: Reports: Chicken Pox, Measles, Rubella - Past Surgical History HEENT Surgical History: Reports: Tonsillectomy Cardiovascular Surgical History: Reports: Cardiac Ablation, Pacer Respiratory Surgical History: Reports: None GI Surgical History: Reports: Colonoscopy, Hernia, Inguinal, Other (See Below) Male Surgical History: Reports: Kidney Stone Extraction, Lithotripsy (ESWL) Endocrine Surgical History: Reports: None Neurological Surgical History: Reports: C-Spine, Spinal Fusion Musculoskeletal Surgical History: Reports: Knee Replacement Social & Family History - Family History Family Medical History: Noncontributory HEENT: Reports: Cataract Cardiac: Reports: [place] Respiratory: Reports: COPD GI: Reports: None : Reports: None Endocrine/Metabolic: Reports: Diabetes, type II Oncologic: Reports: Brain, Colon, Lung - Caffeine Use Caffeine Use: Reports: None Other Caffeine Use: diet coke - 3-4 cans /day - Living Situation & Occupation Living situation: Reports: Occupation: Unemployed ED ROS GENERAL - Review of Systems Review Of Systems: See Below Constitutional: Denies: Fever, Chills, Weakness HEENT: Denies: Rhinitis, Throat Pain Respiratory: Denies: Shortness of Breath, Pleuritic Chest Pain, Cough, Sputum Cardiovascular: Denies: Chest Pain, Lightheadedness, Syncope GI/Abdominal: Denies: Abdominal Pain, Nausea, Vomiting : Denies: Dysuria, Frequency Musculoskeletal: Denies: Joint Pain, Joint Swelling Skin: Denies: Bruising, Pruritis, Rash Neurological: Denies: Confusion, Dizziness, Headache, Numbness, Tingling ED EXAM, GENERAL - Physical Exam Exam: See Below Exam Limited By: No Limitations General Appearance: Alert, WD/WN, No Apparent Distress Eye Exam: Bilateral Eye: EOMI, PERRL Ears: Normal External Exam, Normal Canal, Hearing Grossly Normal, Normal TMs Ear Exam: Bilateral Ear: Auricle Normal, Canal Normal, TM normal Nose: Normal Inspection, Normal Mucosa, No Blood Throat/Mouth: Normal Inspection, Normal Lips, Normal Teeth, Normal Gums, Normal Oropharynx, Normal Voice, No Airway Compromise Head: Atraumatic, Normocephalic Neck: Normal Inspection, Supple, Non-Tender, Full Range of Motion Respiratory/Chest: No Respiratory Distress, Lungs Clear, Normal Breath Sounds, No Accessory Muscle Use, Chest Non-Tender Cardiovascular: Normal Peripheral Pulses, Regular Rate, Rhythm, No Edema, No Gallop, No JVD, No Murmur, No Rub GI/Abdominal: Normal Bowel Sounds, Soft, Non-Tender, No Organomegaly, No Distention, No Abnormal Bruit, No Mass Back Exam: Normal Inspection Extremities: Normal Inspection, Normal Range of Motion, Non-Tender, Normal Capillary Refill, No Pedal Edema Skin Exam: Warm, Intact EKG INTERPRETATION EKG Date: 11/21/18 Rhythm: NSR Rate (Beats/Min): 91 [place]: Normal P-Wave: Present QRS: Normal ST-T: Normal QT: Normal Course - Vital Signs Text/Narrative:: 73 year male present with left sided chest pain and interscapular pain. His EKG is in normal sinus rhythm. His vitals are stable. He rates his pain at 8/10 and appears very comfortable. No other symptoms. 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 He did receive Nitro 1 dose which did not help much with his pain. He did receive Morphine 4mg and his pain came down to 4/10 from 8/10. His CBC and CMP are normal. His chest Xray is normal. His troponin is negative and also his D-dimer is negative. Pt reassured that he might have had esophageal spasm. His pain has improved, pt claims he feels lot better. He is advised to take his omeprazole 40mg twice daily for next few days. . Advised to followup with his primary care provider. Last Recorded V/S: Last Vital Signs Temp 98.7 F 11/21/18 17:04 Pulse 92 11/21/18 17:04 Resp 20 11/21/18 17:04 BP 133/59 L 11/21/18 17:27 Pulse Ox 98 11/21/18 17:04 - Orders/Labs/Meds Orders: Active Orders 24 hr Category Date Time Status Chest 1V Frontal [CR] Stat Exams 11/21/18 16:59 Ordered INR,PT,PROTHROMBIN TIME [COAG] Stat Lab 11/21/18 16:59 Ordered PTT,PARTIAL THROMBOPLSTIN TIME [COAG] Stat Lab 11/21/18 16:59 Ordered Labs: Laboratory Tests 11/21/18 11/21/18 11/21/18 Range/Units 16:59 16:59 17:01 WBC 12.3 H (4.0-11.0) K/uL RBC 4.84 (4.50-6.50) M/uL Hgb 13.5 (13.0-18.0) g/dL Hct 40.6 (40.0-54.0) % MCV 84 (76-96) fL MCH 27.9 (27.0-32.0) pg MCHC 33.3 (31.0-35.0) g/dL RDW 15.3 (11.0-16.0) % Plt Count 154 (150-400) K/uL MPV 11.1 H (6.0-10.0) fL Neut % (Auto) 58.5 (45.0-70.0) % Lymph % (Auto) 32.1 (20.0-40.0) % [place] % (Auto) 8.1 (3.0-10.0) % Eos % (Auto) 1.1 (1.0-5.0) % Baso % (Auto) 0.2 (0.0-0.5) % Neut # (Auto) 7.22 (2.00-7.50) K/uL Lymph # (Auto) 3.96 (1.50-4.00) K/uL [place] # (Auto) 1.00 H (0.20-0.80) K/uL Eos # (Auto) 0.13 (0.04-0.40) K/uL Baso # (Auto) 0.03 (0.02-0.10) K/uL D-Dimer, Quantitative < 100 (0-400) ng/mL Sodium 139 (136-145) mmol/L Potassium 3.6 (3.5-5.1) mmol/L Chloride 103 (98-107) mmol/L Carbon Dioxide 24.9 (21.0-32.0) mmol/L Anion Gap 14.7 (5.0-15.0) mmol/L BUN 21 D (8-26) mg/dL Creatinine 1.41 H (0.70-1.30) mg/dL Est Cr Clr Drug Dosing 52.74 mL/min Estimated GFR (MDRD) 50 L (>60) MLS/MIN BUN/Creatinine Ratio 14.9 (6-25) Glucose 172 H D (74-100) mg/dL Calcium 8.7 (8.5-10.1) mg/dL Total Bilirubin 0.6 (0.0-1.0) mg/dL AST 17 (15-37) U/L ALT 28 (12-78) U/L Alkaline Phosphatase 116 (46-116) U/L Troponin I < 0.017 (0.000-0.060) ng/mL Total Protein 6.9 (6.4-8.2) g/dL Albumin 3.5 (3.4-5.0) g/dL Globulin 3.4 (2.2-4.2) g/dL Albumin/Globulin Ratio 1.0 (0.8-2.0) Meds: Medications Discontinued Medications Generic Name Dose Route Start Last Admin Trade Name Freq PRN Reason Stop Dose Admin Aspirin 364 mg 11/21/18 17:20 11/21/18 17:27 Ecotrin PO 11/21/18 17:21 364 mg STAT STA Administration Morphine Sulfate 4 mg 11/21/18 17:23 11/21/18 17:27 Morphine IVPUSH 11/21/18 17:24 4 mg ONETIME ONE Administration Morphine Sulfate Confirm 11/21/18 17:31 Morphine Administered 11/21/18 17:32 Dose 4 mg .ROUTE .STK-MED ONE Nitroglycerin 0.4 mg 11/21/18 17:23 11/21/18 17:27 Nitrostat SL 11/21/18 17:24 0.4 mg ONETIME ONE Administration Departure - Departure Time of Disposition: 17:50 Disposition: Home, Self-Care 01 Condition: Fair Clinical Impression: GERD (gastroesophageal reflux disease) - Discharge Information Referrals: PCP,None [Primary Care Provider] - - Problem List & Annotations (1) GERD (gastroesophageal reflux disease) SNOMED Code(s): 252983813 Code(s): K21.9 - GASTRO-ESOPHAGEAL REFLUX DISEASE WITHOUT ESOPHAGITIS Status: Acute Current Visit: Yes - Problem List Review Problem List Initiated/Reviewed/Updated: Yes - My Orders Last 24 Hours: My Active Orders 11/21/18 16:59 Chest 1V Frontal [CR] Stat INR,PT,PROTHROMBIN TIME [COAG] Stat PTT,PARTIAL THROMBOPLSTIN TIME [COAG] Stat - Assessment/Plan Last 24 Hours: My Active Orders 11/21/18 16:59 Chest 1V Frontal [CR] Stat INR,PT,PROTHROMBIN TIME [COAG] Stat PTT,PARTIAL THROMBOPLSTIN TIME [COAG] Stat Assessment:: GERD with possible esophageal spasm Plan: 73 year male present with left sided chest pain and interscapular pain. His EKG is in normal sinus rhythm. His vitals are stable. He rates his pain at 8/10 and appears very comfortable. No other symptoms. 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 He did receive Nitro 1 dose which did not help much with his pain. He did receive Morphine 4mg and his pain came down to 4/10 from 8/10. His CBC and CMP are normal. His chest Xray is normal. His troponin is negative and also his D-dimer is negative. Pt reassured that he might have had esophageal spasm. His pain has improved, pt claims he feels lot better. He is advised to take his omeprazole 40mg twice daily for next few days. . Advised to followup with his primary care provider.
[2018-11-21] MEDS: Aspirin 325 MG Tab.EC PO STA (17:27)
[2018-11-21] MEDS: Morphine 2 MG/ML Syringe IVPUSH ONE (17:27)
[2018-11-21] MEDS: Nitroglycerin 0.4 MG Tab.SL SL ONE (17:27)
[2018-11-21 17:28] VITALS: BP 133/59
--- NOTE | 2018-11-23 17:14 | CR ---
Date of Service: 11/21/18 Clinical Data: chest pain AP PORTABLE CHEST: Comparison made to a prior exam dated 05/09/18. The chest is under-penetrated. The cardiac pacer and pacer wires remain unchanged in position. The heart size is stable. The lungs appear clear. No pneumothorax. No pleural effusions. [id number] MTDD
== END 2018-11-21 18:00 | disposition home or self-care (01) ==
LOC: LB.ED 16:43
DX: K21.9 Gastro-esophageal reflux disease without esophagitis (principal); I48.91 Unspecified atrial fibrillation; E11.9 Type 2 diabetes mellitus without complications; Z79.4 Long term (current) use of insulin; Z79.899 Other long term (current) drug therapy; Z91.018 Allergy to other foods; Z88.8 Allergy status to other drugs, medicaments and biological substances; Z79.01 Long term (current) use of anticoagulants
CPT/HCPCS: 36415; 71045; 80053; 84484; 85025; 85379; 85610; 85730; 96374; 99285-25; A9270-GY; J2270

== ENCOUNTER 2019-01-21 18:17 | Emergency (ER) | payer MEDICARE, BC ==
[2013-05-05 12:09] VITALS: BP 133/86
--- NOTE | 2019-01-21 19:00 | EDM.PDOC ---
ED HPI GENERAL MEDICAL PROBLEM - General Chief Complaint: Cardiovascular Problem Stated Complaint: syncopal episode Time Seen by Provider: 01/21/19 18:47 Source of Information: Reports: Patient, Family, RN History Limitations: Reports: No Limitations - History of Present Illness INITIAL COMMENTS - FREE TEXT/NARRATIVE: 73 yr male presents with dizziness today, took Meclizine and continued with dizziness and then fell in home and fell onto right knee. States headache now, tension in left shoulder and start of migraine. States this happened last week too, but didn't come in for that. He is diabetic and states BS was about 140 before coming in. He does have an insulin pump and a demand pacemaker. EKG completed and sinus rhythm with rate of 81 noted. is with patient. Treatments HOTEL GENERAL MANAGER: Reports: Other (see below) Other Treatments HOTEL GENERAL MANAGER: meclizine at 1530 Right Knee Pain Score (Numeric/FACES): 3 - Related Data Allergies Allergy/AdvReac Type Severity Reaction Status Date / Time caffeine Allergy Dizziness Verified 01/21/19 18:39 coffee (Coffea arabica) Allergy Headache Verified 01/21/19 18:40 nifedipine [From Procardia] AdvReac Mild Constipatio Verified 01/21/19 18:40 n Home Meds: Home Meds Omeprazole 20 mg PO ACBREAKFAST 05/26/15 [History] atorvaSTATin [Lipitor] 20 mg PO BEDTIME 05/26/15 [History] Polyethylene Glycol 3350 [MiraLAX] 17 gm PO DAILY PRN 12/13/15 [History] Metoprolol Succinate [Toprol XL] 25 mg PO DAILY 05/25/16 [History] Furosemide 20 mg PO QAM 03/29/17 [History] Furosemide [Lasix] 40 mg PO DAILY@1200 03/29/17 [History] Metoclopramide HCl [Reglan] 10 mg PO QID 03/29/17 [History] Tamsulosin HCl 0.4 mg PO DAILY 03/29/17 [History] Insulin Pump Syringe, 3 mL [Minimed [place]] 1 each MC ASDIRECTED 04/04/17 [ History] Clopidogrel [Plavix] 75 mg PO DAILY 09/09/17 [History] Isosorbide Mononitrate [Isosorbide Mononitrate ER] 60 mg PO DAILY 09/09/17 [ History] Meclizine [Antivert] 25 mg PO TID PRN 09/09/17 [History] Melatonin 3 mg PO DAILY@2130 09/09/17 [History] Methocarbamol 750 mg PO ASDIRECTED PRN 09/09/17 [History] Nitroglycerin [Nitrostat] 0.4 mg SL ASDIRECTED 09/09/17 [History] Warfarin Sliding Scale [Coumadin Sliding Scale] 1 mg PO DAILY 01/15/18 [History] Past Medical History - Past Health History Medical/Surgical History: Denies Medical/Surgical History HEENT History: Reports: Cataract, Impaired Vision, Other (See Below) Other HEENT History: Sarai alcazargus Cardiovascular History: Reports: Afib, Angina, Automatic Implantable Cardioverter Defibrillators, High Cholesterol, Hypertension, Pacemaker, SOB on Exertion Other Cardiovascular History: Ablation in July,, angiogram 07/25/2017 Respiratory History: Reports: PE, Pneumonia, Recurrent, Sleep Apnea, SOB Other Respiratory History: wears a cpap at night with oxygen at 5 LPM/NC Gastrointestinal History: Reports: Bowel Obstruction, Chronic Constipation, GERD , Other (See Below) Other Gastrointestinal History: duodenal ulcer Genitourinary History: Reports: Renal Calculus, Other (See Below) Other Genitourinary History: prostate stent placed 10/01/2016 Musculoskeletal History: Reports: Back Pain, Chronic Other Musculoskeletal History: Neck pain causing migraines Neurological History: Reports: Migraines Other Neuro History: Patient had vertebrae in neck fused. Resolved some or most of headaches. Psychiatric History: Reports: Depression, Emotional Problems Endocrine/Metabolic History: Reports: Diabetes, Type II, Obesity/BMI 30+ Other Endocrine/Metabolic History: pt has insulin pump Hematologic History: Reports: B12 Deficiency, Blood Transfusion(s) Oncologic (Cancer) History: Reports: None Dermatologic History: Reports: Other (See Below) Other Dermatologic History: Had pre-cancer lesion removed to R arm. Has lesion to L wrist. - Infectious Disease History Infectious Disease History: Reports: Chicken Pox, Measles, Rubella - Past Surgical History HEENT Surgical History: Reports: Tonsillectomy Cardiovascular Surgical History: Reports: Cardiac Ablation, Pacer Respiratory Surgical History: Reports: None GI Surgical History: Reports: Colonoscopy, Hernia, Inguinal, Other (See Below) Male Surgical History: Reports: Kidney Stone Extraction, Lithotripsy (ESWL) Endocrine Surgical History: Reports: None Neurological Surgical History: Reports: C-Spine, Spinal Fusion Musculoskeletal Surgical History: Reports: Knee Replacement Social & Family History - Family History Family Medical History: Noncontributory HEENT: Reports: Cataract Cardiac: Reports: CT Respiratory: Reports: COPD GI: Reports: None : Reports: None Endocrine/Metabolic: Reports: Diabetes, type II Oncologic: Reports: Brain, Colon, Lung - Caffeine Use Caffeine Use: Reports: None Other Caffeine Use: diet coke - 3-4 cans /day - Living Situation & Occupation Living situation: Reports: Occupation: Unemployed ED ROS GENERAL - Review of Systems Review Of Systems: See Below Constitutional: Reports: Weakness. Denies: Fever, Chills HEENT: Reports: Glasses, Other (some headache and neck tenderness, history of migraines, condition improved with Botox injections, provider at [facility].) Respiratory: Reports: No Symptoms Cardiovascular: Reports: No Symptoms Endocrine: Reports: Other (insulin pump, just had visit with didactic program in dietetics director today, in [place], no changes in regime.). Denies: High Glucose GI/Abdominal: Denies: Diarrhea, Nausea, Vomiting : Reports: No Symptoms Musculoskeletal: Reports: Shoulder Pain (left shoulder pressure), Other (right knee pain, left hip pain, has follow-up with ortho for this, states may need hip replacement.) Skin: Reports: No Symptoms Neurological: Reports: Dizziness, Headache, Other (light headed). Denies: Trouble Speaking Psychiatric: Reports: No Symptoms Hematologic/Lymphatic: Reports: No Symptoms ED EXAM, GENERAL - Physical Exam Exam: See Below Exam Limited By: No Limitations General Appearance: Alert, No Apparent Distress Ears: Hearing Grossly Normal Nose: Normal Inspection Throat/Mouth: Normal Inspection, Normal Lips, Normal Voice, No Airway Compromise Head: Atraumatic, Normocephalic Neck: Supple, Full Range of Motion Respiratory/Chest: No Respiratory Distress, Lungs Clear, Normal Breath Sounds Cardiovascular: Normal Peripheral Pulses, Regular Rate, Rhythm GI/Abdominal: Normal Bowel Sounds, Soft, Non-Tender Back Exam: Normal Inspection Extremities: Non-Tender, Normal Capillary Refill, Other (mild nonpitting edema to ankles) Neurological: Alert, Oriented, Normal Cognition Psychiatric: Normal Affect, Normal Mood Skin Exam: Warm, Dry, Normal Color Lymphatic: No Adenopathy Course - Vital Signs Last Recorded V/S: Last Vital Signs Temp 97.2 F 01/21/19 18:50 Pulse 86 01/21/19 20:24 Resp 20 01/21/19 20:24 BP 180/78 H 01/21/19 20:24 Pulse Ox 98 01/21/19 20:24 - Orders/Labs/Meds Orders: Active Orders 24 hr Category Date Time Status EKG Documentation Completion [RC] ASDIRECTED Care 01/21/19 18:54 Active Labs: Laboratory Tests 01/21/19 01/21/19 Range/Units 18:20 18:20 WBC 10.0 (4.0-11.0) K/uL RBC 5.46 (4.50-6.50) M/uL Hgb 15.3 (13.0-18.0) g/dL Hct 45.8 (40.0-54.0) % MCV 84 (76-96) fL MCH 28.0 (27.0-32.0) pg MCHC 33.4 (31.0-35.0) g/dL RDW 14.9 (11.0-16.0) % Plt Count 158 (150-400) K/uL MPV 11.9 H (6.0-10.0) fL Neut % (Auto) 59.7 (45.0-70.0) % Lymph % (Auto) 31.1 (20.0-40.0) % [place] % (Auto) 6.7 (3.0-10.0) % Eos % (Auto) 2.1 (1.0-5.0) % Baso % (Auto) 0.4 (0.0-0.5) % Neut # (Auto) 5.98 (2.00-7.50) K/uL Lymph # (Auto) 3.11 (1.50-4.00) K/uL [place] # (Auto) 0.67 (0.20-0.80) K/uL Eos # (Auto) 0.21 (0.04-0.40) K/uL Baso # (Auto) 0.04 (0.02-0.10) K/uL Sodium 143 (136-145) mmol/L Potassium 3.8 (3.5-5.1) mmol/L Chloride 105 (98-107) mmol/L Carbon Dioxide 26.9 (21.0-32.0) mmol/L Anion Gap 14.9 (5.0-15.0) mmol/L BUN 22 D (8-26) mg/dL Creatinine 1.35 H (0.70-1.30) mg/dL Est Cr Clr Drug Dosing TNP Estimated GFR (MDRD) 52 L (>60) MLS/MIN BUN/Creatinine Ratio 16.3 (6-25) Glucose 123 H D (74-100) mg/dL Calcium 8.8 (8.5-10.1) mg/dL Troponin I < 0.017 (0.000-0.060) ng/mL Meds: Medications Discontinued Medications Generic Name Dose Route Start Last Admin Trade Name Freq PRN Reason Stop Dose Admin Sodium Chloride 1,000 mls @ 125 mls/hr 01/21/19 19:00 01/21/19 19:47 Normal Saline IV 125 mls/hr ASDIRECTED [facility] Administration - Re-Assessments/Exams Free Text/Narrative Re-Assessment/Exam: 01/21/19 19:50 Pt reports dizziness started when he was in the bedroom and changing his jeans into the sweatpants. States he fell into the bed and then onto the right knee. IV Nacl started, will give 500 cc bolus. Labs pending. No leukocytosis. EKG complete and no ST changes noted. Pt does have a pacemaker. Today he and had driven to [place] for medical appointments and saw endocrinology and had lab work done, drove home, watched some TV and was making supper and he went to go change clothes and the dizziness and fall happened. He does have a cane with him and does have a walker at home. 01/21/19 19:54 Creatinine is stable, RBS 123, no significant findings with labs. Troponin is negative. Will check orthostatic BP. Departure - Departure Time of Disposition: 20:45 Disposition: Home, Self-Care 01 Condition: Good Clinical Impression: Dizziness on standing Instructions: Meclizine tablets or capsules, Orthostatic Hypotension Referrals: PCP,None [Primary Care Provider] - Forms: ED Department Discharge Additional Instructions: Discharge home Follow up in the clinic next week. Medications: Colace 100mg daily by mouth-you may increase to 2 times a day as needed. Call or return to the ER if you have any questions or concerns. - My Orders Last 24 Hours: My Active Orders 01/21/19 18:54 EKG Documentation Completion [RC] ASDIRECTED - Assessment/Plan Last 24 Hours: My Active Orders 01/21/19 18:54 EKG Documentation Completion [RC] ASDIRECTED Plan: Dizziness with position change. Reassured no changes with EKG with this and troponins negative. Pt did take Meclizine today for dizziness and then was changing clothes and dizziness increased. Recommend when taking Meclizine to wait for it to work and stabilize, before change of position and rest after taking medication. Recommend to stay hydrated, change position slowly, sit and rest before standing, use cane, walker to steady self at all times. Limit position changes and limit valsalva maneuver for 90 minutes after eating if possible. Keep BM soft and prevent straining with BM. Will set-up for holter monitor for 7-10 days, as tolerated. Pt reports having palpitations and was hospitalized for about 4 days in [place] with tachycardia. He does have a pacemeaker. Heart rate has been 70-80 in ER. BP stable in ER with position change. Follow-up in clinic next week or sooner to ER or clinic if symptoms worsen or persist.
[2019-01-21] MEDS: Sodium Chloride 0.9% 1,000 ML IV SCH (19:47)
[2019-01-21 20:32] VITALS: BP 180/78
== END 2019-01-21 20:45 | disposition home or self-care (01) ==
LOC: LB.ED 18:17
DX: R42 Dizziness and giddiness (principal); M25.561 Pain in right knee; M25.552 Pain in left hip; M54.2 Cervicalgia; I48.91 Unspecified atrial fibrillation; K21.9 Gastro-esophageal reflux disease without esophagitis; E11.9 Type 2 diabetes mellitus without complications; F32.9 Major depressive disorder, single episode, unspecified; Z86.711 Personal history of pulmonary embolism; E66.9 Obesity, unspecified; Z88.8 Allergy status to other drugs, medicaments and biological substances; Z91.018 Allergy to other foods; Z79.4 Long term (current) use of insulin; Z79.01 Long term (current) use of anticoagulants; Z79.02 Long term (current) use of antithrombotics/antiplatelets; Z79.899 Other long term (current) drug therapy
CPT/HCPCS: 36415; 80048; 84484; 85025; 93005; 96360; 99284; J7030

== ENCOUNTER → 2019-04-09 | Outpatient (CLI) | payer MEDICARE, BC | LOC: LB.COAG 14:25 | PROVIDERS: ATTEND Family Medicine | DX: Z09 Encounter for follow-up examination after completed treatment for conditions other than malignant neoplasm (principal); Z86.711 Personal history of pulmonary embolism | CPT/HCPCS: 85610 ==

== ENCOUNTER 2019-04-13 05:22 | Emergency (ER) | payer MEDICARE, BC ==
[2019-04-13 05:56] VITALS: BP 158/84; PULSE 88
[2019-04-13] MEDS: Sodium Chloride 0.9% 500 ML IV ONE (06:44)
[2019-04-13] MEDS: diphenhydrAMINE 50 MG/ML SDV IVPUSH ONE (06:49)
[2019-04-13] MEDS: Ketorolac 60 MG/2 ML SDV IM ONE (06:56)
[2019-04-13] MEDS: Ketorolac 60 MG/2 ML SDV IVPUSH ONE (07:01)
[2019-04-13] MEDS: Prochlorperazine 10 MG in Sodium Chloride 0.9% 50 ML IV ONE (07:09)
--- NOTE | 2019-04-13 10:36 | ER ---
REASON FOR EMERGENCY ROOM VISIT: Migraine. HISTORY: This 73-year-old man with multiple medical problems, including chronic migraine headaches, comes in because of a migraine headache that started last night just before bedtime. He does have a history of migraines that dates back to late adolescents. He has been treating this lately with Botox injections in [place]. His pain symptomatology last night was typical and that he began to experience pain in the left occipital area around 6 p.m. It was this study "hard" pain that he rated at 9/10. From the occipital area, this study pain moved up to the frontal area on the left side and even down towards the shoulder. It is not throbbing in nature, but it was associated with what sounds like scotomata which is common for him. He also at times gets flashing colors in his eyes, usually only affecting the side where his headache occurs and the vast majority of time this is on the left side. He has had similar episodes on the right side. Typically, he has not had vomiting, but last night but he has had nausea and that was the case last night. His pain is aggravated by light and loud noise. He has had several CT scans and MRIs over the years in the past. He denies any numbness or weakness. PAST MEDICAL HISTORY: Significant for: 1. Obesity. 2. Cholelithiasis with cholecystectomy. 3. Chronic atrial fibrillation, controlled. 4. History of ablation. 5. Pacemaker with implanted cardioverter. 6. Type 2 diabetes mellitus. 7. Vertigo. 8. History of sleep apnea (uses CPAP device). 9. GERD with Lu esophagus. 10.History of small-bowel obstruction. 11.Duodenal ulcer history. 12.History of renal calculus, treated with ESWL. 13.Inguinal hernia repair. 14.C-spine fusion. MEDICATIONS: Reviewed. Please see electronic medical record. They include the following. Lipitor, Coumadin, tamsulosin, polyethylene glycol, omeprazole, nitroglycerin, metoprolol, metoclopramide, methocarbamol, melatonin, meclizine, isosorbide mononitrate, insulin, furosemide, and clopidogrel. ALLERGIES: NIFEDIPINE. HE ALSO CANNOT TOLERATE CAFFEINATED BEVERAGES. REVIEW OF SYSTEMS: Pertinent positives and negatives as listed in the HPI. PHYSICAL EXAMINATION: GENERAL: He is a pleasant man, in no acute distress. VITAL SIGNS: He weighs 169 kg. He is afebrile. Heart rate is 88 and regular, blood pressure 158/84, respiratory rate 18, O2 sats 97% on room air. HEENT: Head is normocephalic, no tenderness. No temporal artery tenderness is noted. Pupils equally round and reactive. Oropharynx is unremarkable. NECK: Supple. No tenderness or pain to passive range of motion. No bruits are audible. CHEST: Clear to auscultation. CARDIAC: Regular rate without murmur. His pacemaker is palpated in the left upper chest area. ABDOMEN: Obese, soft, and nontender. EXTREMITIES: Normal pulses. No edema. NEUROLOGIC: Cranial nerves 2 through 12 are intact. Deep tendon reflexes are symmetrical bilaterally in the upper and lower extremities. Muscle strength, bulk, and tone is normal and symmetrical. Sensation is normal to crude touch. Romberg sign was not tested. DIAGNOSTIC IMPRESSION: Migraine. PLAN: An IV was started. He was given 500 mL of normal saline bolus. He was also given Toradol 60 mg IV, diphenhydramine 50 mg IV, and Compazine 10 mg IV. We observed him in the Emergency Department for approximately 1.5 hours. He felt 100% better when I rechecked on him. He was discharged. He will follow up with the physician whom he has been seeing for his migraines in [place]. We did discuss potential for Imitrex and other medications that might be worth considering should his frequency of migraine attacks increase, etc. All questions were answered. He understands and agrees. KYLEIGH /[id number]
== END 2019-04-13 08:36 | disposition home or self-care (01) ==
LOC: LB.ED 05:22
DX: G43.909 Migraine, unspecified, not intractable, without status migrainosus (principal); E11.9 Type 2 diabetes mellitus without complications; K21.9 Gastro-esophageal reflux disease without esophagitis
CPT/HCPCS: 96374; 96375; 99284; J0780; J1200; J1885; J7030; J7050

== ENCOUNTER 2019-04-24 20:57 | Emergency (ER) | payer MEDICARE, MEDICAID ==
[2019-04-24] MEDS: GI Cocktail Oral Solution 30 ML PO ONE (21:32)
[2019-04-24] MEDS: Nitroglycerin 0.4 MG Tab.SL SL PRN (21:33)
[2019-04-24 21:56] VITALS: BP 153/73; PULSE 78
--- NOTE | 2019-04-24 23:12 | ER ---
HISTORY OF PRESENT ILLNESS: A 73-year-old male who comes in with his with complaints of pain involving the left anterior chest wall below the left breast and involving the upper epigastric area on the left side. He states that it seemed like it was bothering him a little bit earlier today, but after they ate supper is when it seemed to get worse. He they went home and within a half hour his pain got worse. He rates it currently at 4/10, and he felt like he had an irregular heartbeat for a couple of minutes as well. The patient denies any nausea. He has not been running a fever. He has not been sick recently. OBJECTIVE: GENERAL APPEARANCE: The patient is awake and alert. No obvious distress. VITAL SIGNS: Reviewed. Initial blood pressure 169/76, he is afebrile, pulse is 81, O2 sats are 98%. HEENT: Oral mucous membranes moist. Tonsils not enlarged or injected. Pharynx not inflamed. NECK: Supple. LUNGS: Clear with slightly reduced air exchange throughout the lung lema. CARDIAC: Heart sounds distinct. S1, S2 present. Regular rate. No murmurs. ABDOMEN: Soft, protuberant. I cannot reproduce any pain with palpation over the upper left quadrant or of the left anterior lower chest wall. SKIN: Warm and dry. Initial treatment: 1 nitroglycerin tablet was given sublingually without any relief of symptoms. IMAGING: An EKG was obtained showing a normal sinus rhythm. There is a right bundle branch block. I am not sure if this is new or not. It was not on one of the patient's previous EKGs. At this point, a GI cocktail was given 30 mL and the patient stated within 10 minutes that his pain decreased about 50%. LABS: Tonight include a CBC showing a slightly elevated white count of 11.5, otherwise unremarkable. Comprehensive metabolic panel is unremarkable. Troponin is normal. DIAGNOSES: 1. Gastritis. 2. Possible irregular heartbeat. In reviewing the patient's history, he had a heart monitor put on in January and he had a few short runs of SVT and ventricular tachycardia. TREATMENT PLAN: The patient tells me that he does take omeprazole 20 mg a day. I advised the patient to increase it to 40 mg a day. He also has Tums, but does not use it very often. I advised the patient to try Tums the next time he gets an episode like this. I do want the patient to consider a bland diet and to follow up with his regular doctor next week for recheck. Follow up sooner as needed. JOSUE/ADRIANO /[id number]
== END 2019-04-24 22:15 | disposition home or self-care (01) ==
LOC: LB.ED 20:57
DX: K29.70 Gastritis, unspecified, without bleeding (principal)
CPT/HCPCS: 36415; 80053; 84484; 85025; 99283; 99285-25; A9270-GY

== ENCOUNTER → 2019-05-29 | Outpatient (CLI) | payer MEDICARE ==
[2019-05-29] MEDS: Testosterone Cypionate 200 MG/ML MDV IM ONE (10:10)
[2019-05-29 12:43] VITALS: BP 140/77; PULSE 84
== END ==
LOC: LB.ACU 10:06
PROVIDERS: ATTEND Family Medicine
DX: E29.1 Testicular hypofunction (principal)
CPT/HCPCS: 96372; J1071

== ENCOUNTER 2019-09-19 18:46 | Emergency (ER) | payer MEDICARE ==
[2019-09-19] MEDS ORDERED: Sodium Chloride 0.9% 10 ML Syringe FLUSH PRN (19:15)
[2019-09-19] MEDS: Morphine 2 MG/ML Syringe IVPUSH ONE (19:20)
[2019-09-19] MEDS: GI Cocktail Oral Solution 30 ML PO ONE (19:22)
[2019-09-19] MEDS: Ketorolac 60 MG/2 ML SDV IVPUSH ONE (19:26)
[2019-09-19] MEDS: diphenhydrAMINE 50 MG/ML SDV IVPUSH ONE (19:28)
[2019-09-19] MEDS ORDERED: Ibuprofen 400 MG Tab ONE (19:30)
[2019-09-19] MEDS ORDERED: Cyclobenzaprine 10 MG Tab ONE (19:30)
[2019-09-19] MEDS: Cyclobenzaprine 10 MG Tab PO ONE (19:31)
--- NOTE | 2019-09-19 19:33 | EDM.PDOC ---
ED HPI GENERAL MEDICAL PROBLEM - General Chief Complaint: Cardiovascular Problem Stated Complaint: CHEST PAIN Time Seen by Provider: 09/19/19 18:46 - History of Present Illness INITIAL COMMENTS - FREE TEXT/NARRATIVE: Dionicio presents for a typical bout of chest discomfort. He has had frequent presentations for such in the past. He notes that around 1700, he was carrying a couple rather heavy speakers, along with quite a bit of a speaker wire, and ambulating for a fair distance compared to his usually sedentary activity status. He felt a bit lightheaded. In response to his symptoms he sat down. His dizziness went away. A few minutes later, he noticed that the left scapular area was starting to feel some muscle tightness. He was able to palpate his chest wall and reproduce some discomfort from just to the left of his xiphoid process and along his left subcostal margin. He did not have any true syncope, diaphoresis, or shortness of breath. He denies any nausea, recent febrile illness, headache, or cough. He is noted to be a longstanding type II diabetic on a pump. Prior to COV, he received testosterone injections. He has had no known myocardial issues in the way of myocardial infarcts, but does have a pacemaker. After at least 2 hours of symptoms, he called EMS and was brought in for further evaluation. Chest Pain Score (Numeric/FACES): 8 - Related Data Allergies Allergy/AdvReac Type Severity Reaction Status Date / Time caffeine Allergy Dizziness Verified 09/19/19 19:16 coffee (Coffea arabica) Allergy Headache Verified 09/19/19 19:16 nifedipine [From Procardia] AdvReac Mild Constipatio Verified 09/19/19 19:16 n Home Meds: Home Meds Omeprazole 20 mg PO ACBREAKFAST 05/26/15 [History] atorvaSTATin [Lipitor] 20 mg PO BEDTIME 05/26/15 [History] Polyethylene Glycol 3350 [MiraLAX] 17 gm PO DAILY PRN 12/13/15 [History] Metoprolol Succinate [Toprol XL] 25 mg PO DAILY 05/25/16 [History] Furosemide 20 mg PO QAM 03/29/17 [History] Furosemide [Lasix] 40 mg PO DAILY@1200 03/29/17 [History] Metoclopramide HCl [Reglan] 10 mg PO QID 03/29/17 [History] Tamsulosin HCl 0.4 mg PO DAILY 03/29/17 [History] Insulin Pump Syringe, 3 mL [Minimed Levering] 1 each MC ASDIRECTED 04/04/17 [ History] Clopidogrel [Plavix] 75 mg PO DAILY 09/09/17 [History] Isosorbide Mononitrate [Isosorbide Mononitrate ER] 60 mg PO DAILY 09/09/17 [ History] Meclizine [Antivert] 25 mg PO TID PRN 09/09/17 [History] Melatonin 3 mg PO DAILY@2130 09/09/17 [History] Nitroglycerin [Nitrostat] 0.4 mg SL ASDIRECTED 09/09/17 [History] methocarbamoL [Methocarbamol] 750 mg PO ASDIRECTED PRN 09/09/17 [History] Warfarin Sliding Scale [Coumadin Sliding Scale] 1 mg PO DAILY 01/15/18 [History] Past Medical History - Past Health History Medical/Surgical History: Denies Medical/Surgical History HEENT History: Reports: Cataract, Impaired Vision, Other (See Below) Other HEENT History: Barotts esophagus Cardiovascular History: Reports: Afib, Angina, Automatic Implantable Cardioverter Defibrillators, High Cholesterol, Hypertension, Pacemaker, SOB on Exertion Other Cardiovascular History: Ablation in July,, angiogram 07/25/2017 Respiratory History: Reports: PE, Pneumonia, Recurrent, Sleep Apnea, SOB Other Respiratory History: wears a cpap at night with oxygen at 5 LPM/NC Gastrointestinal History: Reports: Bowel Obstruction, Chronic Constipation, GERD , Other (See Below) Other Gastrointestinal History: duodenal ulcer Genitourinary History: Reports: Renal Calculus, Other (See Below) Other Genitourinary History: prostate stent placed 10/01/2016 Musculoskeletal History: Reports: Back Pain, Chronic Other Musculoskeletal History: Neck pain causing migraines Neurological History: Reports: Migraines Other Neuro History: Patient had vertebrae in neck fused. Resolved some or most of headaches. Psychiatric History: Reports: Depression, Emotional Problems Endocrine/Metabolic History: Reports: Diabetes, Type II, Obesity/BMI 30+ Other Endocrine/Metabolic History: pt has insulin pump Hematologic History: Reports: B12 Deficiency, Blood Transfusion(s) Oncologic (Cancer) History: Reports: None Dermatologic History: Reports: Other (See Below) Other Dermatologic History: Had pre-cancer lesion removed to R arm. Has lesion to L wrist. - Infectious Disease History Infectious Disease History: Reports: Chicken Pox, Measles, Rubella - Past Surgical History HEENT Surgical History: Reports: Tonsillectomy Cardiovascular Surgical History: Reports: Cardiac Ablation, Pacer Respiratory Surgical History: Reports: None GI Surgical History: Reports: Colonoscopy, Hernia, Inguinal, Other (See Below) Male Surgical History: Reports: Kidney Stone Extraction, Lithotripsy ([facility]) Endocrine Surgical History: Reports: None Neurological Surgical History: Reports: C-Spine, Spinal Fusion Musculoskeletal Surgical History: Reports: Knee Replacement Social & Family History - Family History Family Medical History: Noncontributory HEENT: Reports: Cataract Cardiac: Reports: AR Respiratory: Reports: COPD GI: Reports: None : Reports: None Endocrine/Metabolic: Reports: Diabetes, type II Oncologic: Reports: Brain, Colon, Lung - Caffeine Use Caffeine Use: Reports: None Other Caffeine Use: diet coke - 3-4 cans /day - Living Situation & Occupation Living situation: Reports: Occupation: Unemployed ED ROS GENERAL - Review of Systems Review Of Systems: Comprehensive ROS is negative, except as noted in HPI. ED EXAM, GENERAL - Physical Exam Exam: See Below Exam Limited By: No Limitations General Appearance: Alert, WD/WN, No Apparent Distress Eye Exam: Bilateral Eye: EOMI, PERRL Ears: Normal External Exam Nose: Normal Inspection Throat/Mouth: Normal Inspection, Normal Lips, Normal Voice, No Airway Compromise Head: Atraumatic, Normocephalic Neck: Normal Inspection, Supple, Non-Tender, Full Range of Motion. No: Thyromegaly Respiratory/Chest: No Respiratory Distress, Lungs Clear, Normal Breath Sounds Cardiovascular: Regular Rate, Rhythm. No: No Murmur GI/Abdominal: Normal Bowel Sounds, Soft, Non-Tender Back Exam: Normal Inspection, Full Range of Motion, Muscle Spasm. No: CVA Tenderness (R), CVA Tenderness (L) Extremities: Normal Inspection, Normal Range of Motion, Pedal Edema (slight) Neurological: Alert, Oriented, CN II-XII Intact, Normal Cognition Psychiatric: Normal Affect, Normal Mood Skin Exam: Warm, Dry, Intact Course - Vital Signs Last Recorded V/S: Last Vital Signs Temp 98.3 F 09/19/19 19:05 Pulse 83 09/19/19 20:46 Resp 19 09/19/19 20:46 BP 171/73 H 09/19/19 20:46 Pulse Ox 95 09/19/19 20:46 - Orders/Labs/Meds Labs: Laboratory Tests 09/19/19 09/19/19 09/19/19 Range/Units 19:15 19:50 19:50 WBC 11.2 H (4.0-11.0) K/uL RBC 5.21 (4.50-6.50) M/uL Hgb 14.3 (13.0-18.0) g/dL Hct 43.4 (40.0-54.0) % MCV 83 (76-96) fL MCH 27.4 (27.0-32.0) pg MCHC 32.9 (31.0-35.0) g/dL RDW 15.4 (11.0-16.0) % Plt Count 169 (150-400) K/uL MPV 11.9 H (6.0-10.0) fL Neut % (Auto) 53.0 (45.0-70.0) % Lymph % (Auto) 38.0 (20.0-40.0) % [place] % (Auto) 7.4 (3.0-10.0) % Eos % (Auto) 1.3 (1.0-5.0) % Baso % (Auto) 0.3 (0.0-0.5) % Neut # (Auto) 5.91 (2.00-7.50) K/uL Lymph # (Auto) 4.25 H (1.50-4.00) K/uL [place] # (Auto) 0.83 H (0.20-0.80) K/uL Eos # (Auto) 0.15 (0.04-0.40) K/uL Baso # (Auto) 0.03 (0.02-0.10) K/uL PT 22.9 H D (9.0-11.5) sec INR 2.5 D (1.0-3.5) Sodium 144 (136-145) mmol/L Potassium 3.7 (3.5-5.1) mmol/L Chloride 106 (98-107) mmol/L Carbon Dioxide 25.4 (21.0-32.0) mmol/L Anion Gap 16.3 H (5.0-15.0) mmol/L BUN 24 (8-26) mg/dL Creatinine 1.50 H D (0.70-1.30) mg/dL Est Cr Clr Drug Dosing 49.58 mL/min Estimated GFR (MDRD) 46 L (>60) MLS/MIN BUN/Creatinine Ratio 16.0 (6-25) Glucose 225 H D (74-100) mg/dL Calcium 8.4 L (8.5-10.1) mg/dL Total Bilirubin 0.5 (0.0-1.0) mg/dL AST 22 (15-37) U/L ALT 35 (12-78) U/L Alkaline Phosphatase 108 (46-116) U/L Troponin I < 0.017 (0.000-0.060) ng/mL C-Reactive Protein 4.5 H (0.0-3.0) mg/L Total Protein 7.1 (6.4-8.2) g/dL Albumin 3.4 (3.4-5.0) g/dL Globulin 3.7 (2.2-4.2) g/dL Albumin/Globulin Ratio 0.9 (0.8-2.0) Meds: Medications Discontinued Medications Generic Name Dose Route Start Last Admin Trade Name Freq PRN Reason Stop Dose Admin Al Hydroxide/Mg Hydroxide 30 ml 09/19/19 19:19 09/19/19 19:22 Gi Cocktail PO 09/19/19 19:20 30 ml ONETIME ONE Administration Cyclobenzaprine HCl 10 mg 09/19/19 19:19 09/19/19 19:31 Flexeril PO 09/19/19 19:20 10 mg ONETIME ONE Administration Cyclobenzaprine HCl 150 mg 09/19/19 19:30 Flexeril .ROUTE 09/19/19 19:31 .STK-MED ONE Diphenhydramine HCl 50 mg 09/19/19 19:18 09/19/19 19:28 Benadryl IVPUSH 09/19/19 19:19 50 mg ONETIME ONE Administration Ibuprofen 8,000 mg 09/19/19 19:30 Motrin .ROUTE 09/19/19 19:31 .STK-MED ONE Ketorolac Tromethamine 10 mg 09/19/19 19:17 09/19/19 19:26 Toradol IVPUSH 09/19/19 19:18 10 mg ONETIME ONE Administration Morphine Sulfate 2 mg 09/19/19 19:16 09/19/19 19:20 Morphine IVPUSH 09/19/19 19:17 2 mg ONETIME ONE Administration Sodium Chloride 10 ml 09/19/19 19:15 Saline Flush FLUSH ASDIRECTED PRN Keep Vein Open Departure - Departure Time of Disposition: 21:12 Disposition: Home, Self-Care 01 Clinical Impression: Chest pain Qualifiers: Chest pain type: unspecified Qualified Code(s): R07.9 - Chest pain, unspecified Instructions: Nonspecific Chest Pain, Adult, [id number] Referrals: PCP,None [Primary Care Provider] - Forms: ED Department Discharge Additional Instructions: May take provider Flexeril as directed: 1 tablet by mouth every 8 hours as needed for muscle spasms/pain. Next dose may be taken at 3:00am. Also can take provided Ibuprofen as instructed: half tablet by mouth every 8 hours as needed for pain. Also can apply warm compress to affected area of chest to help with pain; on every 1-2 hours for 10-15 minutes. Activity and diet as tolerated. Drink plenty of fluids and get plenty of rest. Follow up with regular provider as needed. Call with any questions. Sepsis Event Note - Focused Exam Date Exam was Performed: 09/22/19 Time Exam was Performed: 20:28
[2019-09-19 21:19] VITALS: BP 171/73; PULSE 83
== END 2019-09-19 21:05 | disposition home or self-care (01) ==
LOC: LB.ED 18:46
DX: R07.89 Other chest pain (principal); I48.91 Unspecified atrial fibrillation; K21.9 Gastro-esophageal reflux disease without esophagitis; F32.9 Major depressive disorder, single episode, unspecified; E11.9 Type 2 diabetes mellitus without complications; E66.9 Obesity, unspecified; Z68.43 Body mass index [BMI] 50.0-59.9, adult; Z86.711 Personal history of pulmonary embolism; Z88.8 Allergy status to other drugs, medicaments and biological substances; Z91.018 Allergy to other foods; Z79.899 Other long term (current) drug therapy; Z79.4 Long term (current) use of insulin; Z79.02 Long term (current) use of antithrombotics/antiplatelets
CPT/HCPCS: 36415; 80053; 84484; 85025; 85610; 86140; 93005; 96374; 96375; 99285-25; A0425; A0429; A9270-GY; J1200; J1885; J2270

== ENCOUNTER 2019-10-05 16:45 | Emergency (ER) | payer MEDICARE ==
[2019-10-05] MEDS ORDERED: Morphine 10 MG/ML Syringe IM ONE (17:09)
[2019-10-05] MEDS ORDERED: hydrOXYzine HCl 50 MG/ML SDV IM ONE (17:10)
--- NOTE | 2019-10-05 17:21 | EDM.PDOC ---
ED HPI GENERAL MEDICAL PROBLEM - General Time Seen by Provider: 10/05/19 16:50 Source of Information: Reports: Patient History Limitations: Reports: No Limitations - History of Present Illness INITIAL COMMENTS - FREE TEXT/NARRATIVE: Dionicio states that he is suffered from chronic migraines, and has so for quite a while. He notes that the last time he was in here, the only thing he really responded favorably to was morphine. He is wondering about getting some now, because he has had a typical migraine. Normally he gets Botox along the entire left side of his neck and upper trunk. This month he was not able to do so. He switched from a pain specialist in [place] to [place], and he states that she is going back for at least 6 years to try to figure my headaches out. He described the gradual onset of his usual features about 3 days ago. It was unbearable from this morning. He denies any trauma or symptoms of infection. He has no exertional issue, or focal neurologic deficit. He is a bit nauseous, but overall is taking well orally. He does have somebody drive him of course. Left Head Pain Score (Numeric/FACES): 5 - Related Data Allergies Allergy/AdvReac Type Severity Reaction Status Date / Time caffeine Allergy Dizziness Verified 10/05/19 17:30 coffee (Coffea arabica) Allergy Headache Verified 10/05/19 17:30 nifedipine [From Procardia] AdvReac Mild Constipatio Verified 10/05/19 17:30 n Home Meds: Home Meds Omeprazole 20 mg PO ACBREAKFAST 05/26/15 [History] atorvaSTATin [Lipitor] 20 mg PO BEDTIME 05/26/15 [History] Polyethylene Glycol 3350 [MiraLAX] 17 gm PO DAILY PRN 12/13/15 [History] Metoprolol Succinate [Toprol XL] 25 mg PO DAILY 05/25/16 [History] Furosemide 20 mg PO QAM 03/29/17 [History] Furosemide [Lasix] 40 mg PO DAILY@1200 03/29/17 [History] Metoclopramide HCl [Reglan] 10 mg PO QID 03/29/17 [History] Tamsulosin HCl 0.4 mg PO DAILY 03/29/17 [History] Insulin Pump Syringe, 3 mL [Minimed [place]] 1 each MC ASDIRECTED 04/04/17 [ History] Clopidogrel [Plavix] 75 mg PO DAILY 09/09/17 [History] Isosorbide Mononitrate [Isosorbide Mononitrate ER] 60 mg PO DAILY 09/09/17 [ History] Meclizine [Antivert] 25 mg PO TID PRN 09/09/17 [History] Melatonin 3 mg PO DAILY@2130 09/09/17 [History] Nitroglycerin [Nitrostat] 0.4 mg SL ASDIRECTED 09/09/17 [History] methocarbamoL [Methocarbamol] 750 mg PO ASDIRECTED PRN 09/09/17 [History] Warfarin Sliding Scale [Coumadin Sliding Scale] 1 mg PO DAILY 01/15/18 [History] Past Medical History - Past Health History Medical/Surgical History: Denies Medical/Surgical History HEENT History: Reports: Cataract, Impaired Vision, Other (See Below) Other HEENT History: Barotts esophagus Cardiovascular History: Reports: Afib, Angina, Automatic Implantable Cardioverter Defibrillators, High Cholesterol, Hypertension, Pacemaker, SOB on Exertion Other Cardiovascular History: Ablation in July,, angiogram 07/25/2017 Respiratory History: Reports: PE, Pneumonia, Recurrent, Sleep Apnea, SOB Other Respiratory History: wears a cpap at night with oxygen at 5 LPM/NC Gastrointestinal History: Reports: Bowel Obstruction, Chronic Constipation, GERD , Other (See Below) Other Gastrointestinal History: duodenal ulcer Genitourinary History: Reports: Renal Calculus, Other (See Below) Other Genitourinary History: prostate stent placed 10/01/2016 Musculoskeletal History: Reports: Back Pain, Chronic Other Musculoskeletal History: Neck pain causing migraines Neurological History: Reports: Migraines Other Neuro History: Patient had vertebrae in neck fused. Resolved some or most of headaches. Psychiatric History: Reports: Depression, Emotional Problems Endocrine/Metabolic History: Reports: Diabetes, Type II, Obesity/BMI 30+ Other Endocrine/Metabolic History: pt has insulin pump Hematologic History: Reports: B12 Deficiency, Blood Transfusion(s) Oncologic (Cancer) History: Reports: None Dermatologic History: Reports: Other (See Below) Other Dermatologic History: Had pre-cancer lesion removed to R arm. Has lesion to L wrist. - Infectious Disease History Infectious Disease History: Reports: Chicken Pox, Measles, Rubella - Past Surgical History HEENT Surgical History: Reports: Tonsillectomy Cardiovascular Surgical History: Reports: Cardiac Ablation, Pacer Respiratory Surgical History: Reports: None GI Surgical History: Reports: Colonoscopy, Hernia, Inguinal, Other (See Below) Male Surgical History: Reports: Kidney Stone Extraction, Lithotripsy (ESWL) Endocrine Surgical History: Reports: None Neurological Surgical History: Reports: C-Spine, Spinal Fusion Musculoskeletal Surgical History: Reports: Knee Replacement Social & Family History - Family History Family Medical History: Noncontributory HEENT: Reports: Cataract Cardiac: Reports: [place] Respiratory: Reports: COPD GI: Reports: None : Reports: None Endocrine/Metabolic: Reports: Diabetes, type II Oncologic: Reports: Brain, Colon, Lung - Caffeine Use Caffeine Use: Reports: None Other Caffeine Use: diet coke - 3-4 cans /day - Living Situation & Occupation Living situation: Reports: Occupation: Unemployed ED ROS GENERAL - Review of Systems Review Of Systems: Comprehensive ROS is negative, except as noted in HPI. ED EXAM, GENERAL - Physical Exam Exam: See Below Exam Limited By: No Limitations General Appearance: Alert, WD/WN, No Apparent Distress Eye Exam: Bilateral Eye: EOMI, Normal Inspection Ears: Normal External Exam, Hearing Grossly Normal Nose: Normal Inspection, Normal Mucosa Throat/Mouth: Normal Inspection, Normal Oropharynx, Normal Voice, No Airway Compromise, Other (No evidence of dehydration) Head: Atraumatic, Normocephalic Neck: Normal Inspection, Supple, Non-Tender, Full Range of Motion, Tender Lateral (Mostly left-sided and no midline tenderness) Respiratory/Chest: No Respiratory Distress, Lungs Clear, Normal Breath Sounds Cardiovascular: Regular Rate, Rhythm, No Gallop, No Murmur, No Rub GI/Abdominal: Normal Bowel Sounds, Soft Extremities: Normal Inspection, Non-Tender, Normal Capillary Refill Neurological: Oriented, Normal Cognition, No Motor/Sensory Deficits Psychiatric: Normal Affect, Normal Mood Skin Exam: Warm, Dry, Intact Lymphatic: No Adenopathy Course - Vital Signs Text/Narrative:: Dionicio seemed to do well after his injection of morphine and hydroxyzine. He notes that his headache was improving quite a bit, and he asked to be discharged. He got up and ambulated with minimal use of his cane, and was encouraged to come back with any further problems. I otherwise did mention the possibility of Aimovig, that he could mention to his neurologist or chronic pain clinician. Last Recorded V/S: Last Vital Signs Temp 98.4 F 10/05/19 17:10 Pulse 90 10/05/19 17:10 Resp 20 10/05/19 17:10 BP 173/95 H 10/05/19 17:10 Pulse Ox 98 10/05/19 17:10 - Orders/Labs/Meds Meds: Medications Discontinued Medications Generic Name Dose Route Start Last Admin Trade Name Awilda PRN Reason Stop Dose Admin Hydroxyzine HCl 50 mg 10/05/19 17:10 10/05/19 17:34 Vistaril IM 10/05/19 17:11 50 mg ONETIME ONE Administration Hydroxyzine HCl Confirm 10/05/19 17:40 10/05/19 17:38 Vistaril Administered 10/05/19 17:41 Not Given Dose 50 mg .ROUTE .STK-MED ONE Morphine Sulfate 10 mg 10/05/19 17:09 10/05/19 17:38 Morphine IM 10/05/19 17:10 10 mg ONETIME ONE Administration Morphine Sulfate Confirm 10/05/19 17:40 10/05/19 17:37 Morphine Administered 10/05/19 17:41 Not Given Dose 10 mg .ROUTE .STK-MED ONE Departure - Departure Time of Disposition: 17:20 Disposition: Home, Self-Care 01 Condition: Good Clinical Impression: Chronic migraine - Discharge Information Instructions: Recurrent Migraine Headache, [id number] Referrals: PCP,None [Primary Care Provider] - Forms: ED Department Discharge Additional Instructions: Discharge home. Follow up with primary provider and keep Botox appointment. Sepsis Event Note - Focused Exam Vital Signs: Vital Signs Temp Pulse Resp BP Pulse Ox 10/05/19 17:10 98.4 F 90 20 173/95 H 98 10/05/19 17:00 98.4 F 90 20 172/95 H 98 Date Exam was Performed: 10/05/19 Time Exam was Performed: 18:38
[2019-10-05] MEDS ORDERED: hydrOXYzine HCl 50 MG/ML SDV ONE (17:40)
[2019-10-05] MEDS ORDERED: Morphine 10 MG/ML SDV ONE (17:40)
[2019-10-05 17:46] VITALS: PULSE 90
[2019-10-05 17:50] VITALS: BP 173/95
== END 2019-10-05 18:05 | disposition home or self-care (01) ==
LOC: LB.ED 16:45
DX: G43.909 Migraine, unspecified, not intractable, without status migrainosus (principal); I48.91 Unspecified atrial fibrillation; F32.9 Major depressive disorder, single episode, unspecified; E11.9 Type 2 diabetes mellitus without complications; E66.9 Obesity, unspecified; Z68.43 Body mass index [BMI] 50.0-59.9, adult; K21.9 Gastro-esophageal reflux disease without esophagitis; Z91.09 Other allergy status, other than to drugs and biological substances; Z91.018 Allergy to other foods; Z79.4 Long term (current) use of insulin; Z88.8 Allergy status to other drugs, medicaments and biological substances; Z79.02 Long term (current) use of antithrombotics/antiplatelets; Z86.711 Personal history of pulmonary embolism; Z79.01 Long term (current) use of anticoagulants
CPT/HCPCS: 96372; 99283; J2270; J3410

== ENCOUNTER 2019-11-02 18:42 | Emergency (ER) | payer MEDICARE ==
[2019-11-02] MEDS ORDERED: Aspirin 81 MG Tab.Chew PO ONE (18:44)
[2019-11-02] MEDS: Nitroglycerin 0.4 MG Tab.SL SL PRN ×2 (18:47→19:22)
--- NOTE | 2019-11-02 18:51 | EDM.PDOC ---
ED HPI GENERAL MEDICAL PROBLEM - General Chief Complaint: Chest Pain Stated Complaint: CHEST PAIN Time Seen by Provider: 11/02/19 18:42 Source of Information: Reports: Patient History Limitations: Reports: No Limitations - History of Present Illness INITIAL COMMENTS - FREE TEXT/NARRATIVE: This patient presents to the ED via EMS following a fall at home. He states that he has had chest pain in the area from the bottom of his right ribs diagonal to his left shoulder all day. He rates this pain at a 5. Late this afternoon he started to feel dizzy and went "down to his knees and then laid on the floor" prompting the 911 call. He continues to complain of chest pain that is about the same as it has been all day. He denies pain in his neck, arms, or back. He denies any history of an UT but does have a pacemaker. 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 He states that he is usually has blood sugars that are "more normal" around 100-150. He is also complaining of left hip pain but "that is not new." He denies recent illnesses including fever, cough, shortness of breath, or sore throat. He is also having some difficulty breathing, feeling a bit short of breath with the pain. He had botox injections on for his migraines and an epidural 2 weeks ago for "hip pain" but he adds that this did not seem to help as he is still unable to bear full weight on his left hip. Onset: Today Onset Date: 11/02/19 Onset Time: 09:00 Duration: Constant Location: Reports: Chest. Denies: Neck, Back, Upper Extremity, Left, Upper Extremity, Right Quality: Reports: Ache, Pressure Severity: Moderate Improves with: Reports: None Worsens with: Reports: None Associated Symptoms: Reports: Diaphoresis, Shortness of Breath, Weakness. Denies: Cough, Fever/Chills, Headaches, Loss of Appetite, Nausea/Vomiting Left Chest Pain Score (Numeric/FACES): 0 - Related Data Allergies Allergy/AdvReac Type Severity Reaction Status Date / Time caffeine Allergy Dizziness Verified 11/02/19 19:43 coffee (Coffea arabica) Allergy Headache Verified 11/02/19 19:43 nifedipine [From Procardia] AdvReac Mild Constipatio Verified 11/02/19 19:43 n Home Meds: Home Meds Omeprazole 20 mg PO ACBREAKFAST 05/26/15 [History] atorvaSTATin [Lipitor] 20 mg PO BEDTIME 05/26/15 [History] Polyethylene Glycol 3350 [MiraLAX] 17 gm PO DAILY PRN 12/13/15 [History] Metoprolol Succinate [Toprol XL] 25 mg PO DAILY 05/25/16 [History] Furosemide 20 mg PO QAM 03/29/17 [History] Furosemide [Lasix] 40 mg PO DAILY@1200 03/29/17 [History] Metoclopramide HCl [Reglan] 10 mg PO QID 03/29/17 [History] Tamsulosin HCl 0.4 mg PO DAILY 03/29/17 [History] Insulin Pump Syringe, 3 mL [Minimed [place]] 1 each MC ASDIRECTED 04/04/17 [ History] Clopidogrel [Plavix] 75 mg PO DAILY 09/09/17 [History] Isosorbide Mononitrate [Isosorbide Mononitrate ER] 60 mg PO DAILY 09/09/17 [ History] Meclizine [Antivert] 25 mg PO TID PRN 09/09/17 [History] Melatonin 3 mg PO DAILY@2130 09/09/17 [History] Nitroglycerin [Nitrostat] 0.4 mg SL ASDIRECTED 09/09/17 [History] methocarbamoL [Methocarbamol] 750 mg PO ASDIRECTED PRN 09/09/17 [History] Warfarin Sliding Scale [Coumadin Sliding Scale] 1 mg PO DAILY 01/15/18 [History] Past Medical History - Past Health History Medical/Surgical History: Denies Medical/Surgical History HEENT History: Reports: Cataract, Impaired Vision, Other (See Below) Other HEENT History: Barotts esophagus Cardiovascular History: Reports: Afib, Angina, Automatic Implantable Cardioverter Defibrillators, High Cholesterol, Hypertension, Pacemaker, SOB on Exertion Other Cardiovascular History: Ablation in July,, angiogram 07/25/2017 Respiratory History: Reports: PE, Pneumonia, Recurrent, Sleep Apnea, SOB Other Respiratory History: wears a cpap at night with oxygen at 5 LPM/NC Gastrointestinal History: Reports: Bowel Obstruction, Chronic Constipation, GERD , Other (See Below) Other Gastrointestinal History: duodenal ulcer Genitourinary History: Reports: Renal Calculus, Other (See Below) Other Genitourinary History: prostate stent placed 10/01/2016 Musculoskeletal History: Reports: Back Pain, Chronic Other Musculoskeletal History: Neck pain causing migraines Neurological History: Reports: Migraines Other Neuro History: Patient had vertebrae in neck fused. Resolved some or most of headaches. Psychiatric History: Reports: Depression, Emotional Problems Endocrine/Metabolic History: Reports: Diabetes, Type II, Obesity/BMI 30+ Other Endocrine/Metabolic History: pt has insulin pump Hematologic History: Reports: B12 Deficiency, Blood Transfusion(s) Oncologic (Cancer) History: Reports: None Dermatologic History: Reports: Other (See Below) Other Dermatologic History: Had pre-cancer lesion removed to R arm. Has lesion to L wrist. - Infectious Disease History Infectious Disease History: Reports: Chicken Pox, Measles, Rubella - Past Surgical History HEENT Surgical History: Reports: Tonsillectomy Cardiovascular Surgical History: Reports: Cardiac Ablation, Pacer Respiratory Surgical History: Reports: None GI Surgical History: Reports: Colonoscopy, Hernia, Inguinal, Other (See Below) Male Surgical History: Reports: Kidney Stone Extraction, Lithotripsy (ESWL) Endocrine Surgical History: Reports: None Neurological Surgical History: Reports: C-Spine, Spinal Fusion Musculoskeletal Surgical History: Reports: Knee Replacement Social & Family History - Family History Family Medical History: Noncontributory HEENT: Reports: Cataract Cardiac: Reports: [place] Respiratory: Reports: COPD GI: Reports: None : Reports: None Endocrine/Metabolic: Reports: Diabetes, type II Oncologic: Reports: Brain, Colon, Lung - Caffeine Use Caffeine Use: Reports: None Other Caffeine Use: diet coke - 3-4 cans /day - Living Situation & Occupation Living situation: Reports: Occupation: Unemployed ED ROS GENERAL - Review of Systems Review Of Systems: Comprehensive ROS is negative, except as noted in HPI. ED EXAM, GENERAL - Physical Exam Exam: See Below Exam Limited By: No Limitations General Appearance: Alert, Moderate Distress, Obese (morbidly) Eye Exam: Bilateral Eye: PERRL Ears: Normal External Exam Nose: Normal Inspection Throat/Mouth: Normal Inspection Head: Atraumatic, Normocephalic Neck: Normal Inspection, Supple, Non-Tender, Full Range of Motion. No: Lymphadenopathy (R), Lymphadenopathy (L) Respiratory/Chest: No Respiratory Distress, Lungs Clear, Normal Breath Sounds, No Accessory Muscle Use, Other (tachypneic) Cardiovascular: Normal Peripheral Pulses, Regular Rate, Rhythm Neurological: Alert, Oriented Psychiatric: Normal Affect, Normal Mood Skin Exam: Warm, Dry, Intact, Normal Color, No Rash Course - Vital Signs Last Recorded V/S: Last Vital Signs Temp 37.2 C 11/02/19 19:16 Pulse 83 11/02/19 19:49 Resp 14 11/02/19 19:49 BP 153/66 H 11/02/19 19:49 Pulse Ox 95 11/02/19 19:49 - Orders/Labs/Meds Orders: Active Orders 24 hr Category Date Time Status EKG Documentation Completion [RC] ASDIRECTED Care 11/02/19 19:07 Active Nitroglycerin [Nitrostat] Med 11/02/19 18:44 Active 0.4 mg SL Q5M PRN EKG 12 Lead [EK] Routine Ther 11/02/19 18:40 Ordered Medication Orders Nitroglycerin (Nitrostat) 0.4 mg SL Q5M PRN PRN Reason: Chest Pain Last Admin: 11/02/19 19:22 Dose: 0.4 mg Admin: 11/02/19 18:47 Dose: 0.4 mg Labs: Laboratory Tests 11/02/19 11/02/19 Range/Units 19:10 19:10 WBC 13.7 H D (4.0-11.0) K/uL RBC 4.80 (4.50-6.50) M/uL Hgb 13.3 (13.0-18.0) g/dL Hct 40.6 (40.0-54.0) % MCV 85 (76-96) fL MCH 27.7 (27.0-32.0) pg MCHC 32.8 (31.0-35.0) g/dL RDW 15.6 (11.0-16.0) % Plt Count 177 (150-400) K/uL MPV 11.1 H (6.0-10.0) fL Neut % (Auto) 63.9 (45.0-70.0) % Lymph % (Auto) 26.2 (20.0-40.0) % [place] % (Auto) 8.6 (3.0-10.0) % Eos % (Auto) 1.1 (1.0-5.0) % Baso % (Auto) 0.2 (0.0-0.5) % Neut # (Auto) 8.74 H (2.00-7.50) K/uL Lymph # (Auto) 3.58 (1.50-4.00) K/uL [place] # (Auto) 1.17 H (0.20-0.80) K/uL Eos # (Auto) 0.15 (0.04-0.40) K/uL Baso # (Auto) 0.03 (0.02-0.10) K/uL Sodium 140 (136-145) mmol/L Potassium 4.0 (3.5-5.1) mmol/L Chloride 102 (98-107) mmol/L Carbon Dioxide 27.4 (21.0-32.0) mmol/L Anion Gap 14.6 (5.0-15.0) mmol/L BUN 27 H (8-26) mg/dL Creatinine 1.48 H (0.70-1.30) mg/dL Est Cr Clr Drug Dosing 49.52 mL/min Estimated GFR (MDRD) 47 L (>60) MLS/MIN BUN/Creatinine Ratio 18.2 (6-25) Glucose 233 H (74-100) mg/dL Calcium 8.4 L (8.5-10.1) mg/dL Troponin I < 0.017 (0.000-0.060) ng/mL Meds: Medications Generic Name Dose Route Start Last Admin Trade Name Freq PRN Reason Stop Dose Admin Nitroglycerin 0.4 mg 11/02/19 18:44 11/02/19 19:22 Nitrostat SL 0.4 mg Q5M PRN Administration Chest Pain Discontinued Medications Generic Name Dose Route Start Last Admin Trade Name Freq PRN Reason Stop Dose Admin Aspirin 324 mg 11/02/19 18:44 11/02/19 18:48 Aspirin PO 11/02/19 18:45 324 mg ONETIME ONE Administration - Re-Assessments/Exams Free Text/Narrative Re-Assessment/Exam: 11/02/19 19:52 This patient presents with chest pain and dizziness. The work up in the ED is thus far negative and the patient did not report any reduction in the pain after administration of NTG. His blood pressure did improve. The differential diagnosis of chest pain is broad and includes life threatening etiologies such as acute coronary syndrome, myocardial infarction, pulmonary embolism, acute aortic dissection, amongst others. Other causes may include pneumonia, pneumothorax, chest wall source, pericarditis, pleurisy, esophageal spasm, etc. No serious etiology for the chest pain were detected today during this visit. Workup included labs and an EKG. History and clinical findings at this time seem most consistent with pain of a musculoskeletal cause secondary to morbid obesity. Close follow up with primary care is indicated should the pain continue , as further work up may be performed; this was made clear to the patient, who understands. Departure - Departure Time of Disposition: 19:00 Disposition: DC[facility] Condition: Fair Clinical Impression: Chest pain Qualifiers: Chest pain type: unspecified Qualified Code(s): R07.9 - Chest pain, unspecified - Discharge Information Referrals: PCP,None [Primary Care Provider] - Forms: ED Department Discharge Additional Instructions: Discharge home. Follow up with your primary provider. Sepsis Event Note - Focused Exam Vital Signs: Vital Signs Temp Pulse Resp BP BP Pulse Ox 11/02/19 19:49 83 14 153/66 H 95 11/02/19 19:31 87 11 L 150/65 H 94 L 11/02/19 19:22 142/66 H 11/02/19 19:16 37.2 C 91 12 142/66 H 93 L 11/02/19 19:10 90 18 94 L 11/02/19 18:54 37.1 C 109 H 16 150/77 H 11/02/19 18:47 150/77 H Date Exam was Performed: 11/02/19 Time Exam was Performed: 19:50 - My Orders Last 24 Hours: My Active Orders 11/02/19 18:40 EKG 12 Lead [EK] Routine 11/02/19 18:44 Nitroglycerin [Nitrostat] 0.4 mg SL Q5M PRN 11/02/19 19:07 EKG Documentation Completion [RC] ASDIRECTED - Assessment/Plan Last 24 Hours: My Active Orders 11/02/19 18:40 EKG 12 Lead [EK] Routine 11/02/19 18:44 Nitroglycerin [Nitrostat] 0.4 mg SL Q5M PRN 11/02/19 19:07 EKG Documentation Completion [RC] ASDIRECTED
[2019-11-02 19:50] VITALS: BP 153/66; PULSE 83
== END 2019-11-02 20:00 | disposition home or self-care (01) ==
LOC: LB.ED 18:42
DX: R07.9 Chest pain, unspecified (principal); Z91.018 Allergy to other foods; K21.9 Gastro-esophageal reflux disease without esophagitis; E11.9 Type 2 diabetes mellitus without complications; E66.9 Obesity, unspecified; Z68.43 Body mass index [BMI] 50.0-59.9, adult; I48.91 Unspecified atrial fibrillation; Z79.01 Long term (current) use of anticoagulants; Z88.8 Allergy status to other drugs, medicaments and biological substances; Z79.02 Long term (current) use of antithrombotics/antiplatelets; Z79.899 Other long term (current) drug therapy; Z99.81 Dependence on supplemental oxygen; Y92.009 Unspecified place in unspecified non-institutional (private) residence as the place of occurrence of the external cause
CPT/HCPCS: 36415; 80048; 84484; 85025; 93005; 99283; 99285-25; A0425; A0429; A9270-GY

== ENCOUNTER 2019-11-15 19:48 | Emergency (ER) | payer MEDICARE ==
[2019-11-15] MEDS ORDERED: Sodium Chloride 0.9% 500 ML IV ONE (20:22)
[2019-11-15] MEDS ORDERED: Ketorolac 60 MG/2 ML SDV IVPUSH ONE (20:24)
[2019-11-15] MEDS ORDERED: diphenhydrAMINE 50 MG/ML SDV IVPUSH ONE (20:25)
[2019-11-15] MEDS ORDERED: Prochlorperazine 10 MG in Sodium Chloride 0.9% 50 ML IV ONE (20:25)
[2019-11-15] MEDS ORDERED: Ketorolac 60 MG/2 ML SDV ONE (20:42)
[2019-11-15] MEDS ORDERED: Prochlorperazine 10 MG/2 ML SDV ONE (20:42)
[2019-11-15] MEDS ORDERED: diphenhydrAMINE 50 MG/ML SDV ONE (20:43)
--- NOTE | 2019-11-15 22:57 | ER ---
REASON FOR EMERGENCY ROOM VISIT: Headache. HISTORY: This is a 74-year-old man with multiple medical problems including chronic migraines, comes in with typical migraine headache that is worse than usual. He has been managed as of late for the past 1-1/2 years with Botox under the guidance of his neurologist, Dr. Prieto from [facility] in [place]. His headache he describes as a 9/10 and it is in its usual location, namely above the right orbital area. Typically it started gradually and did not involve any throbbing or was not increased with Valsalva. It does increase with movement, sound, and light. He has had no nausea or vomiting. This he states is typical for migraine, but this one is worse than usual. He has had multiple visits to the ER for treatment of his migraines in the past. He states that he has had a lot of CT and MRI evaluations to workup his headaches over the years. His migraines date back to his teens. PAST MEDICAL HISTORY: 1. Migraines. See above. 2. Gallstones and cholecystectomy. 3. GERD. 4. Type 2 diabetes. 5. Back pain, chronic. 6. Chronic atrial fibrillation. 7. Ablation treatment with pacemaker. 8. Renal calculus. 9. C-spine fusion. 10.Morbid obesity. 11.History of syncope. ALLERGIES: HE IS ALLERGIC TO CAFFEINE AND COFFEE WELL NIFEDIPINE. MEDICATIONS: Reviewed. Please see EMR and they include the following. 1. Insulin. 2. Lasix. 3. Coumadin. 4. Flomax. 5. Metoprolol. 6. Lipitor. 7. Plavix. 8. Imdur. 9. Gabapentin. 10.Cozaar. 11.Omeprazole. 12.Flexeril. 13.Bentyl. REVIEW OF SYSTEMS: Pertinent positives and negatives as listed in the HPI. PHYSICAL EXAMINATION: Reveals an obese man who is pleasant and in no acute distress. VITAL SIGNS: He is afebrile. Blood pressure 158/84, respirations 18, heart rate 88, O2 sats 97%. HEENT: He has no tenderness over the temporal artery areas. Pupils equally round and reactive to light. There is no conjunctivitis. TMs are normal. Oropharynx and neck are normal with normal range of motion and no adenopathy. NEUROLOGIC: Cranial nerves 2-12 intact. Deep tendon reflexes symmetrical bilaterally in the upper and lower extremities. Muscle strength is somewhat weaker in the left upper extremity than the right, but he states that this is a chronic problem dating back several years and this is not a new finding. Sensory examination is normal to crude touch. Station and gait were not tested. IMPRESSION: Migraine. PLAN: He was treated with 500 mL of normal saline IV along with Toradol 60 mg IV, Compazine 10 mg IV, and Benadryl 50 mg IV. Gradually, his symptoms improved and started to wean after approximately an hour and a half and I anticipate continued improvement. I did discuss the importance of followup with his neurologist, who has been seeing him for his headaches and we did discuss the possibility of Imitrex which has worked for him in the past, but he has cost concerns about that. All of the questions were answered. He understands and agrees with this plan. KYLIEGH /[id number]
[2019-11-16 01:52] VITALS: BP 189/87; PULSE 94
== END 2019-11-15 22:00 | disposition home or self-care (01) ==
LOC: LB.ED 19:48
DX: G43.909 Migraine, unspecified, not intractable, without status migrainosus (principal); E11.9 Type 2 diabetes mellitus without complications; K21.9 Gastro-esophageal reflux disease without esophagitis; I48.20 Chronic atrial fibrillation, unspecified; E66.01 Morbid (severe) obesity due to excess calories; Z68.43 Body mass index [BMI] 50.0-59.9, adult; Z91.018 Allergy to other foods; Z88.8 Allergy status to other drugs, medicaments and biological substances; Z79.4 Long term (current) use of insulin
CPT/HCPCS: 96365; 96375; 99283; J0780; J1200; J1885; J7030; J7050

== ENCOUNTER 2019-12-02 20:56 | Observation (INO) | payer MEDICARE ==
[2019-12-02] MEDS ORDERED: Albuterol/Ipratropium 3.0-0.5 MG/3 ML Neb Soln NEB ONE (21:35)
[2019-12-02] MEDS ORDERED: Acetaminophen/HYDROcodone 325-5 MG Tab PO ONE (22:21)
[2019-12-02] MEDS ORDERED: METHOCARBAMOL 750 MG PO PRN (22:31)
[2019-12-02] MEDS ORDERED: Non-Formulary Medication 1 Each (Meclizine [Antivert] 25 MG) PO PRN (22:31)
[2019-12-02] MEDS ORDERED: Albuterol/Ipratropium 3.0-0.5 MG/3 ML Neb Soln NEB PRN (22:39)
[2019-12-02] MEDS ORDERED: Non-Formulary Medication 1 Each (Nitroglycerin [Nitrostat] 0.4 MG) SL SCH (22:45)
[2019-12-02] MEDS ORDERED: Ketorolac 60 MG/2 ML SDV IM ONE (23:30)
[2019-12-03] MEDS: traMADol 50 MG Tab PO SCH ×4 (00:46→17:27)
--- NOTE | 2019-12-03 02:17 | ADMIT ---
74-year-old male who admitted through the emergency room with diagnosis of syncopal episode with collapse and in the process injuring his right knee. The patient will be admitted for observation. He is unable to bear any weight on his right knee. Initial evaluation reveals just mild swelling. There is no redness. There is no break in the skin. There is a well- healed scar from a previous knee replacement. The patient was given a DuoNeb initially which helped with his breathing. He did have some audible wheezes, they resolved with the DuoNeb. Vital signs initially in the emergency room reveals a temp of 98, blood pressure 157/67, pulse 92, respirations 22, O2 sats 96% on room air. The patient will be monitored overnight with pain control, bed rest. He can use the commode if possible. Otherwise, he will need to have a urinal and a bedpan, and we will see how he is doing by morning. JOSUE/STEPHENL /[id number]
--- NOTE | 2019-12-03 02:33 | ER ---
HISTORY OF PRESENT ILLNESS: A 74-year-old male who comes in by ambulance. The patient was putting up a shelf for his at home. He states he was standing on the floor reaching up to put the shelf back together that had busted when he passed out and does not remember hitting the floor. The patient fell down. His called the ambulance, and when they arrived on the scene, the patient was awake. The patient states the only pain he is having is his right knee and he is having a little trouble breathing. He has no problems with neck pain, chest pain, or back pain at this time. OBJECTIVE: GENERAL APPEARANCE: The patient is awake and alert. He is morbidly obese. I assisted to get the patient off the cot to an ER bed. The patient was in need of very little assistance with transfer. VITAL SIGNS: Initially, blood pressure 157/67, he is afebrile, pulse 92, O2 sats are 96%, respirations 22 with audible wheezing. HEENT: The patient has no obvious head or neck injuries or pain with palpation. Oral mucous membranes are slightly dry. NECK: Appears supple. There is no pain with rotation. LUNGS: Have reduced air exchange with scattered wheezes throughout. ABDOMEN: Soft, protuberant, nontender with palpation. EXTREMITIES: The patient's right knee is again painful. There is mild swelling of the knee. The skin is intact. There is no redness. There is a well- healed scar from previous knee replacement a couple of years ago. INITIAL TREATMENT PLAN: A DuoNeb was given to the patient and this did help with his breathing. I can no longer hear audible wheezing. LABORATORY DATA AND X-RAY: Labs include a CBC showing a white count of 12.3. The PT/INR is okay. INR is 2.2. Basic metabolic panel shows a glucose nonfasting of 218. Electrolytes are good. X-ray of the chest is unremarkable. An x-ray of the right knee reveals no acute fracture. DIAGNOSES: 1. Syncopal episode. 2. Right knee injury caused by syncopal episode. TREATMENT PLAN: The patient is still complaining of a lot of pain whenever he tries to move his right knee. We did give him a [place] tablet. We will admit the patient for observation overnight and continue with the pain management and see how he is doing in the morning. Further imaging may be needed since he has a knee replacement, that would most likely be a CT, but that decision can be made tomorrow. CRS/MODL /[id number]
[2019-12-03] MEDS: Pantoprazole 40 MG Tab.CR PO SCH (07:18)
--- NOTE | 2019-12-03 07:23 | CR ---
DATE OF SERVICE: 12/02/19 CLINICAL DATA: fell - injured knee. AP CHEST: Comparison is made to a prior exam dated 03/04/19. The cardiac pacer and pacer wires remain unchanged in position. The heart remains enlarged, unchanged. The lungs are clear. No pneumothorax. No pleural effusions. No evidence of acute intrathoracic disease. [id number] [facility]
--- NOTE | 2019-12-03 07:29 | CR ---
DATE OF SERVICE: 12/02/19 CLINICAL DATA: fell - injured knee RIGHT KNEE: Comparison is made to a prior exam dated 12/19/16. The patient is status post right total knee arthroplasty. The prosthesis appears intact. There is a small joint effusion. No acute fracture or dislocation. No lytic or blastic bone lesions. [id number] [facility]
[2019-12-03] MEDS: METOCLOPRAMIDE HCL 10 MG PO SCH ×4 (07:42→19:49)
[2019-12-03] MEDS: Non-Formulary Medication 1 Each (Furosemide [Furosemide] 20 MG) PO SCH (07:42)
[2019-12-03] MEDS: WARFARIN PO SCH (07:43)
[2019-12-03] MEDS: Non-Formulary Medication 1 Each (Metoprolol Succinate [Toprol Xl] 25 MG) PO SCH (07:43)
[2019-12-03] MEDS: TAMSULOSIN HCL 0.4 MG PO SCH (07:43)
[2019-12-03] MEDS: Non-Formulary Medication 1 Each (Gabapentin [Neurontin] 300 MG) PO SCH ×2 (08:00→19:50)
[2019-12-03] MEDS ORDERED: ISOSORBIDE MONONITRATE 60 MG PO SCH (08:00)
[2019-12-03] MEDS: Non-Formulary Medication 1 Each (Isosorbide Mononitrate [Isosorbide Mononitrate Er] 120 MG PO SCH (08:00)
[2019-12-03] MEDS: Non-Formulary Medication 1 Each (Losartan [Cozaar] 50 MG) PO SCH (08:00)
[2019-12-03] MEDS: Non-Formulary Medication 1 Each (Aspirin [Halfprin] 81 MG) PO SCH (08:00)
[2019-12-03] MEDS ORDERED: Non-Formulary Medication 1 Each (Clopidogrel [Plavix] 75 MG) PO SCH (08:00)
--- NOTE | 2019-12-03 08:45 | PCM.PN ---
- General Info Date of Service: 12/03/19 Subjective Update: Patient denies any issues with lightheadedness, dizziness or nausea at this time. He has difficulty with standing up due to the pain of the medial side of the right knee from his fall. He recalls hitting the right knee prior to his body hitting the ground. He has some improvement of weight bearing but still has moderate and cannot bear his whole weight on the right knee. He is unable to ambulate at this time due to the pain. Pain is controlled when not using the knee. Functional Status: Reports: Pain Controlled, Tolerating Diet - Review of Systems General: Reports: No Symptoms HEENT: Reports: No Symptoms Pulmonary: Reports: No Symptoms Cardiovascular: Reports: No Symptoms Gastrointestinal: Reports: No Symptoms Genitourinary: Reports: No Symptoms Musculoskeletal: Reports: Joint Swelling (right knee pain) Neurological: Reports: No Symptoms - Patient Data Vitals - Most Recent: Last Vital Signs Temp 36.3 C 12/03/19 07:50 Pulse 83 12/03/19 07:50 Resp 18 12/03/19 07:50 BP 148/80 H 12/03/19 07:50 Pulse Ox 97 12/03/19 07:50 Weight - Most Recent: 178.262 kg Lab Results Last 24 Hours: Laboratory Results - last 24 hr 12/02/19 12/02/19 12/02/19 Range/Units 21:51 21:51 21:51 WBC 12.3 H (4.0-11.0) K/uL RBC 4.87 (4.50-6.50) M/uL Hgb 13.8 (13.0-18.0) g/dL Hct 41.3 (40.0-54.0) % MCV 85 (76-96) fL MCH 28.3 (27.0-32.0) pg MCHC 33.4 (31.0-35.0) g/dL RDW 15.7 (11.0-16.0) % Plt Count 164 (150-400) K/uL MPV 11.4 H (6.0-10.0) fL Neut % (Auto) 59.5 (45.0-70.0) % Lymph % (Auto) 30.9 (20.0-40.0) % [place] % (Auto) 8.0 (3.0-10.0) % Eos % (Auto) 1.3 (1.0-5.0) % Baso % (Auto) 0.3 (0.0-0.5) % Neut # (Auto) 7.28 (2.00-7.50) K/uL Lymph # (Auto) 3.79 (1.50-4.00) K/uL [place] # (Auto) 0.98 H (0.20-0.80) K/uL Eos # (Auto) 0.16 (0.04-0.40) K/uL Baso # (Auto) 0.04 (0.02-0.10) K/uL PT 22.6 H (9.0-11.5) sec INR 2.2 (1.0-3.5) Sodium 138 (136-145) mmol/L Potassium 4.3 (3.5-5.1) mmol/L Chloride 105 (98-107) mmol/L Carbon Dioxide 25.8 (21.0-32.0) mmol/L Anion Gap 11.5 (5.0-15.0) mmol/L BUN 27 H (8-26) mg/dL Creatinine 1.36 H (0.70-1.30) mg/dL Est Cr Clr Drug Dosing 53.89 mL/min Estimated GFR (MDRD) 52 L (>60) MLS/MIN BUN/Creatinine Ratio 19.9 (6-25) Glucose 218 H (74-100) mg/dL Calcium 8.5 (8.5-10.1) mg/dL Med Orders - Current: Current Medications Albuterol/Ipratropium (Duoneb 3.0-0.5 Mg/3 Ml) 3 ml NEB Q6H PRN PRN Reason: Shortness of Breath Atorvastatin Calcium (Lipitor) 80 mg PO BEDTIME [facility] Non-Formulary Medication (Furosemide [Furosemide]) 20 mg PO QAM [facility] Last Admin: 12/03/19 07:42 Dose: 20 mg Documented by: Non-Formulary Medication (Insulin Pump Syringe, 3 Ml [Minimed [place]]) 1 each ASDIRECTED [facility] Non-Formulary Medication (Meclizine [Antivert]) 25 mg PO TID PRN PRN Reason: Dizziness Non-Formulary Medication (Melatonin [Melatonin]) 3 mg PO DAILY@2130 [facility] Non-Formulary Medication (Metoclopramide Hcl [Reglan]) 10 mg PO QID [facility] Last Admin: 12/03/19 07:42 Dose: 10 mg Documented by: Non-Formulary Medication (Metoprolol Succinate [Toprol Xl]) 25 mg PO DAILY [facility] Last Admin: 12/03/19 07:43 Dose: 25 mg Documented by: Non-Formulary Medication (Nitroglycerin [Nitrostat]) 0.4 mg SL ASDIRECTED [facility] Non-Formulary Medication (Tamsulosin Hcl [Tamsulosin Hcl]) 0.4 mg PO DAILY [facility] Last Admin: 12/03/19 07:43 Dose: 0.4 mg Documented by: Non-Formulary Medication (Warfarin Sliding Scale [Coumadin Sliding Scale]) 1 mg PO DAILY [facility] Last Admin: 12/03/19 07:43 Dose: 1 mg Documented by: Non-Formulary Medication (Isosorbide Mononitrate [Isosorbide Mononitrate Er]) 120 mg PO DAILY [facility] Non-Formulary Medication (Gabapentin [Neurontin]) 300 mg PO BID [facility] Non-Formulary Medication (Losartan [Cozaar]) 50 mg PO DAILY [facility] Non-Formulary Medication (Aspirin [Halfprin]) 81 mg PO DAILY [facility] Pantoprazole Sodium (Protonix) 40 mg PO ACBREAKFAST [facility] Last Admin: 12/03/19 07:18 Dose: 40 mg Documented by: Tramadol HCl (Ultram) 50 mg PO Q6H [facility] Last Admin: 12/03/19 04:27 Dose: 50 mg Documented by: Discontinued Medications Hydrocodone Bitart/Acetaminophen ([place] 325-5 Mg) 1 tab PO ONETIME ONE Stop: 12/02/19 22:22 Last Admin: 12/02/19 22:28 Dose: 1 tab Documented by: Albuterol/Ipratropium (Duoneb 3.0-0.5 Mg/3 Ml) 3 ml NEB ONETIME ONE Stop: 12/02/19 21:36 Last Admin: 12/02/19 21:43 Dose: 3 ml Documented by: Ketorolac Tromethamine (Toradol) 60 mg IM ONETIME ONE Stop: 12/02/19 23:31 Last Admin: 12/02/19 23:12 Dose: 60 mg Documented by: Non-Formulary Medication (Clopidogrel [Plavix]) 75 mg PO DAILY [facility] Non-Formulary Medication (Furosemide [Lasix]) 40 mg PO DAILY@1200 [facility] Non-Formulary Medication (Isosorbide Mononitrate [Isosorbide Mononitrate Er]) 60 mg PO DAILY [facility] Non-Formulary Medication (Methocarbamol [Methocarbamol]) 750 mg PO ASDIRECTED PRN PRN Reason: Pain Non-Formulary Medication (Polyethylene Glycol 3350 [Miralax]) 17 gm PO DAILY PRN PRN Reason: Constipation - Exam General: Alert, Oriented, Cooperative HEENT: Pupils Equal, Pupils Reactive, EOMI Neck: Supple Lungs: Normal Respiratory Effort, Rhonchi Cardiovascular: Regular Rate, Regular Rhythm Back Exam: Normal Inspection Extremities: Joint Swelling (right knee) Sepsis Event Note - Evaluation Sepsis Screening Result: No Definite Risk - Focused Exam Vital Signs: Vital Signs Temp Pulse Resp BP Pulse Ox 12/03/19 07:50 36.3 C 83 18 148/80 H 97 12/03/19 04:00 36.6 C 87 18 154/76 H 96 12/03/19 00:00 36.4 C 90 18 132/65 97 12/02/19 21:44 36.5 C 92 22 H 157/67 H 96 Date Exam was Performed: 12/03/19 Time Exam was Performed: 08:40 - Problem List & Annotations (1) Syncope and collapse SNOMED Code(s): 525302528 Code(s): R55 - SYNCOPE AND COLLAPSE Status: Suspected Priority: High Current Visit: Yes - Problem List Review Problem List Initiated/Reviewed/Updated: Yes - My Orders Last 24 Hours: My Active Orders 12/03/19 08:37 Head wo Cont [CT] Routine 12/03/19 08:38 Consult to Physical Therapy [PT Evaluation and Treatment] [CONS] Routine - Plan Plan:: Patient to remain in observation at this time. We will do a CT head and have a PT evaluation of the right knee. Discussed Xray results. Considered CT but due to prior arthroplasty the imaging would show significant artifact degrading any findings. No changes to tramadol at this time as it does appear to control the pain and he is comfortable when not using the right knee.
[2019-12-03] MEDS ORDERED: Non-Formulary Medication 1 Each (Furosemide [Lasix] 40 MG) PO SCH (12:00)
--- NOTE | 2019-12-03 16:23 | CT ---
Date of Service: 12/03/19 Clinical Data: Syncope UNENHANCED BRAIN CT: Multislice axial acquisition was performed. Comparison is made to a prior exam dated 05/23/17. There is diffuse cerebral atrophy. There are periventricular lucencies bilaterally consistent with small vessel ischemic change. No masses or mass effect. No intracranial hemorrhage. No evidence of acute or subacute infarct. No osseous abnormalities. IMPRESSION: No acute intracranial abnormalities. [id number] [facility]
[2019-12-03] MEDS ORDERED: Metoclopramide 10 MG Tab ONE (17:28)
[2019-12-03] MEDS: INSULIN PUMP MC SCH (17:40)
[2019-12-03] MEDS: atorvaSTATin 80 MG Tab PO SCH (19:50)
[2019-12-04] MEDS: Non-Formulary Medication 1 Each (Melatonin [Melatonin] 3 MG) PO SCH ×2 (02:16→21:10)
[2019-12-04] MEDS ORDERED: traMADol 50 MG Tab ONE (02:17)
[2019-12-04] MEDS: traMADol 50 MG Tab PO SCH ×3 (02:18→20:49)
[2019-12-04] MEDS: Pantoprazole 40 MG Tab.CR PO SCH (07:26)
[2019-12-04] MEDS: Non-Formulary Medication 1 Each (Gabapentin [Neurontin] 300 MG) PO SCH ×2 (08:30→20:46)
[2019-12-04] MEDS: Non-Formulary Medication 1 Each (Furosemide [Furosemide] 20 MG) PO SCH (08:30)
[2019-12-04] MEDS: Non-Formulary Medication 1 Each (Aspirin [Halfprin] 81 MG) PO SCH (08:30)
[2019-12-04] MEDS: Non-Formulary Medication 1 Each (Losartan [Cozaar] 50 MG) PO SCH (08:31)
[2019-12-04] MEDS: Non-Formulary Medication 1 Each (Isosorbide Mononitrate [Isosorbide Mononitrate Er] 120 MG PO SCH (08:31)
[2019-12-04] MEDS: TAMSULOSIN HCL 0.4 MG PO SCH (08:31)
[2019-12-04] MEDS: Non-Formulary Medication 1 Each (Metoprolol Succinate [Toprol Xl] 25 MG) PO SCH (08:31)
[2019-12-04] MEDS: METOCLOPRAMIDE HCL 10 MG PO SCH ×3 (08:31→20:45)
[2019-12-04] MEDS: WARFARIN PO SCH (08:32)
--- NOTE | 2019-12-04 11:11 | PCM.DCSUM1 ---
Discharge Summary - Discharge Data Discharge Date: 12/04/19 Discharge Disposition: Home, Self-Care 01 Condition: Fair - Referral to Home Health Primary Care Physician: PCP None - Discharge Diagnosis/Problem(s) (1) Syncope and collapse SNOMED Code(s): 491099016 ICD Code: R55 - SYNCOPE AND COLLAPSE Status: Suspected Priority: High Current Visit: Yes - Patient Summary/Data Consults: Consultations 12/03/19 08:38 Consult to Physical Therapy [PT Evaluation and Treatment] [CONS] Routine Please Evaluate and Treat. PT Reason for Consult: Ambulation Special Instructions: Right knee pain This query below is only for informational purposes and is not editable. Admission Diagnosis/Problem: Syncope and collapse - Patient Instructions Diet: Regular Diet as Tolerated Activity: As Tolerated, No Strenuous Activities, Partial Weight Bearing, Rest and Relax Today Driving: Do Not Drive - Discharge Plan Home Medications: Home Meds Omeprazole 20 mg PO ACBREAKFAST 05/26/15 [History] atorvaSTATin [Lipitor] 80 mg PO BEDTIME 05/26/15 [History] Metoprolol Succinate [Toprol XL] 25 mg PO DAILY 05/25/16 [History] Furosemide 20 mg PO QAM 03/29/17 [History] Furosemide [Lasix] 60 mg PO DAILY@1200 03/29/17 [History] Metoclopramide HCl [Reglan] 10 mg PO QID 03/29/17 [History] Tamsulosin HCl 0.4 mg PO DAILY 03/29/17 [History] Insulin Pump Syringe, 3 mL [Minimed [place]] 1 each ASDIRECTED 04/04/17 [History] Isosorbide Mononitrate [Isosorbide Mononitrate ER] 120 mg PO DAILY 09/09/17 [History] Warfarin Sliding Scale [Coumadin Sliding Scale] 1 mg PO DAILY 01/15/18 [History] Aspirin [Halfprin] 81 mg PO DAILY 12/03/19 [History] Gabapentin [Neurontin] 300 mg PO BID 12/03/19 [History] Losartan [Cozaar] 50 mg PO DAILY 12/03/19 [History] Forms: ED Department Discharge Referrals: PCP,None [Primary Care Provider] - - Discharge Summary/Plan Comment DC Time >30 min.: Yes Discharge Summary/Plan Comment: Counseled on non-weight bearing and follow up in clinic with PCP and for Physical therapy evaluation and possible Orthopedic referral if symptoms do not improve and resolve. Patient to be discharged home today. Counseled on care and follow and patient agrees with plan and follow up. - Patient Data Vitals - Most Recent: Last Vital Signs Temp 36.3 C 12/04/19 09:00 Pulse 87 12/04/19 09:00 Resp 18 12/04/19 09:00 BP 158/82 H 12/04/19 09:00 Pulse Ox 98 12/04/19 09:00 Weight - Most Recent: 178.262 kg [facility] Results - Last 24 hrs: Microbiology 12/03/19 00:59 MRSA Surveillance Culture - Final Nares, Unspecified NO MRSA ISOLATED Med Orders - Current: Current Medications Albuterol/Ipratropium (Duoneb 3.0-0.5 Mg/3 Ml) 3 ml NEB Q6H PRN PRN Reason: Shortness of Breath Atorvastatin Calcium (Lipitor) 80 mg PO BEDTIME [facility] Last Admin: 12/03/19 19:50 Dose: 80 mg Documented by: Non-Formulary Medication (Furosemide [Furosemide]) 20 mg PO QAM [facility] Last Admin: 12/04/19 08:30 Dose: 20 mg Documented by: Non-Formulary Medication (Insulin Pump Syringe, 3 Ml [Minimed [place]]) 1 each ASDIRECTED [facility] Last Admin: 12/03/19 17:40 Dose: 1 each Documented by: Non-Formulary Medication (Meclizine [Antivert]) 25 mg PO TID PRN PRN Reason: Dizziness Non-Formulary Medication (Melatonin [Melatonin]) 3 mg PO DAILY@2130 [facility] Last Admin: 12/04/19 02:16 Dose: Not Given Documented by: Non-Formulary Medication (Metoclopramide Hcl [Reglan]) 10 mg PO QID [facility] Last Admin: 12/04/19 08:31 Dose: 10 mg Documented by: Non-Formulary Medication (Metoprolol Succinate [Toprol Xl]) 25 mg PO DAILY [facility] Last Admin: 12/04/19 08:31 Dose: 25 mg Documented by: Non-Formulary Medication (Nitroglycerin [Nitrostat]) 0.4 mg ASDIRECTED [facility]CLUD[facility] Non-Formulary Medication (Tamsulosin Hcl [Tamsulosin Hcl]) 0.4 mg PO DAILY [facility] Last Admin: 12/04/19 08:31 Dose: 0.4 mg Documented by: Non-Formulary Medication (Warfarin Sliding Scale [Coumadin Sliding Scale]) 1 mg PO DAILY [facility] Last Admin: 12/04/19 08:32 Dose: 1 mg Documented by: Non-Formulary Medication (Isosorbide Mononitrate [Isosorbide Mononitrate Er]) 120 mg PO DAILY [facility] Last Admin: 12/04/19 08:31 Dose: 120 mg Documented by: Non-Formulary Medication (Gabapentin [Neurontin]) 300 mg PO BID [facility] Last Admin: 12/04/19 08:30 Dose: 300 mg Documented by: Non-Formulary Medication (Losartan [Cozaar]) 50 mg PO DAILY [facility] Last Admin: 12/04/19 08:31 Dose: 50 mg Documented by: Non-Formulary Medication (Aspirin [Halfprin]) 81 mg PO DAILY [facility] Last Admin: 12/04/19 08:30 Dose: 81 mg Documented by: Pantoprazole Sodium (Protonix) 40 mg PO ACBREAKFAST [facility] Last Admin: 12/04/19 07:26 Dose: 40 mg Documented by: Tramadol HCl (Ultram) 50 mg PO Q6H [facility] Last Admin: 12/04/19 09:46 Dose: 50 mg Documented by: Discontinued Medications Hydrocodone Bitart/Acetaminophen ([place] 325-5 Mg) 1 tab PO ONETIME ONE Stop: 12/02/19 22:22 Last Admin: 12/02/19 22:28 Dose: 1 tab Documented by: Albuterol/Ipratropium (Duoneb 3.0-0.5 Mg/3 Ml) 3 ml NEB ONETIME ONE Stop: 12/02/19 21:36 Last Admin: 12/02/19 21:43 Dose: 3 ml Documented by: Ketorolac Tromethamine (Toradol) 60 mg IM ONETIME ONE Stop: 12/02/19 23:31 Last Admin: 12/02/19 23:12 Dose: 60 mg Documented by: Metoclopramide HCl (Reglan) Confirm Administered Dose 10 mg .ROUTE .STK-MED ONE Stop: 12/03/19 17:29 Last Admin: 12/03/19 17:33 Dose: Not Given Documented by: Non-Formulary Medication (Clopidogrel [Plavix]) 75 mg PO DAILY [facility] Non-Formulary Medication (Furosemide [Lasix]) 40 mg PO DAILY@1200 [facility] Non-Formulary Medication (Isosorbide Mononitrate [Isosorbide Mononitrate Er]) 60 mg PO DAILY [facility] Non-Formulary Medication (Methocarbamol [Methocarbamol]) 750 mg PO ASDIRECTED PRN PRN Reason: Pain Non-Formulary Medication (Polyethylene Glycol 3350 [Miralax]) 17 gm PO DAILY PRN PRN Reason: Constipation Tramadol HCl (Ultram) Confirm Administered Dose 50 mg .ROUTE .[facility]-MED ONE Stop: 12/04/19 02:18
[2019-12-04] MEDS ORDERED: Acetaminophen 500 MG Tab PO PRN (19:00)
[2019-12-04] MEDS: atorvaSTATin 80 MG Tab PO SCH (20:46)
[2019-12-04] MEDS: INSULIN PUMP MC SCH (20:51)
[2019-12-04] MEDS ORDERED: Melatonin 3 MG Tab ONE (21:09)
[2019-12-05] MEDS: traMADol 50 MG Tab PO SCH ×4 (02:32→13:30)
[2019-12-05] MEDS: Pantoprazole 40 MG Tab.CR PO SCH (07:44)
[2019-12-05] MEDS: Non-Formulary Medication 1 Each (Aspirin [Halfprin] 81 MG) PO SCH (07:54)
[2019-12-05] MEDS: Non-Formulary Medication 1 Each (Losartan [Cozaar] 50 MG) PO SCH (07:55)
[2019-12-05] MEDS: Non-Formulary Medication 1 Each (Metoprolol Succinate [Toprol Xl] 25 MG) PO SCH (07:56)
[2019-12-05] MEDS: Non-Formulary Medication 1 Each (Furosemide [Furosemide] 20 MG) PO SCH (07:56)
[2019-12-05] MEDS: Non-Formulary Medication 1 Each (Isosorbide Mononitrate [Isosorbide Mononitrate Er] 120 MG PO SCH (07:56)
[2019-12-05] MEDS: METOCLOPRAMIDE HCL 10 MG PO SCH ×6 (07:57→20:28)
[2019-12-05] MEDS: TAMSULOSIN HCL 0.4 MG PO SCH (07:57)
[2019-12-05] MEDS: Non-Formulary Medication 1 Each (Gabapentin [Neurontin] 300 MG) PO SCH ×2 (07:57→20:31)
[2019-12-05] MEDS: WARFARIN PO SCH (07:57)
[2019-12-05] MEDS: TRELEGY PO SCH (08:05)
[2019-12-05] MEDS: Psyllium Husk Powder Sugar Free 3.4 GM Packet PO SCH (13:00)
[2019-12-05] MEDS ORDERED: traMADol 50 MG Tab PO SCH (14:00)
[2019-12-05] MEDS: ATORVASTATIN 80 MG PO SCH (20:32)
[2019-12-05] MEDS: Non-Formulary Medication 1 Each (Melatonin [Melatonin] 3 MG) PO SCH (20:34)
[2019-12-06] MEDS: TRELEGY PO SCH (07:40)
[2019-12-06] MEDS: Pantoprazole 40 MG Tab.CR PO SCH (07:40)
[2019-12-06] MEDS: LOSARTAN 50 MG PO SCH (07:43)
[2019-12-06] MEDS: METOCLOPRAMIDE HCL 10 MG PO SCH ×4 (07:44→20:06)
[2019-12-06] MEDS: Psyllium Husk Powder Sugar Free 3.4 GM Packet PO SCH (07:44)
[2019-12-06] MEDS: Non-Formulary Medication 1 Each (Furosemide [Furosemide] 20 MG) PO SCH (07:44)
[2019-12-06] MEDS: Non-Formulary Medication 1 Each (Isosorbide Mononitrate [Isosorbide Mononitrate Er] 120 MG PO SCH (07:45)
[2019-12-06] MEDS: TAMSULOSIN HCL 0.4 MG PO SCH (07:46)
[2019-12-06] MEDS: Non-Formulary Medication 1 Each (Metoprolol Succinate [Toprol Xl] 25 MG) PO SCH (07:46)
[2019-12-06] MEDS: Non-Formulary Medication 1 Each (Gabapentin [Neurontin] 300 MG) PO SCH ×2 (07:46→20:06)
[2019-12-06] MEDS: Non-Formulary Medication 1 Each (Aspirin [Halfprin] 81 MG) PO SCH (07:46)
[2019-12-06] MEDS: Cyclobenzaprine 10 MG Tab PO PRN (15:06)
[2019-12-06] MEDS: WARFARIN 1 MG PO SCH (18:26)
[2019-12-06] MEDS: WARFARIN PO SCH (19:28)
[2019-12-06] MEDS: traMADol 50 MG Tab PO SCH (19:30)
[2019-12-06] MEDS: ATORVASTATIN 80 MG PO SCH (20:06)
[2019-12-06] MEDS: Non-Formulary Medication 1 Each (Melatonin [Melatonin] 3 MG) PO SCH (21:11)
[2019-12-07] MEDS: Pantoprazole 40 MG Tab.CR PO SCH (08:23)
[2019-12-07] MEDS: Non-Formulary Medication 1 Each (Isosorbide Mononitrate [Isosorbide Mononitrate Er] 120 MG PO SCH (08:26)
[2019-12-07] MEDS: METOCLOPRAMIDE HCL 10 MG PO SCH ×4 (08:26→20:45)
[2019-12-07] MEDS: Non-Formulary Medication 1 Each (Gabapentin [Neurontin] 300 MG) PO SCH ×2 (08:26→20:37)
[2019-12-07] MEDS: TRELEGY PO SCH (08:26)
[2019-12-07] MEDS: Non-Formulary Medication 1 Each (Furosemide [Furosemide] 20 MG) PO SCH (08:26)
[2019-12-07] MEDS: Psyllium Husk Powder Sugar Free 3.4 GM Packet PO SCH (08:26)
[2019-12-07] MEDS: TAMSULOSIN HCL 0.4 MG PO SCH (08:26)
[2019-12-07] MEDS: Non-Formulary Medication 1 Each (Metoprolol Succinate [Toprol Xl] 25 MG) PO SCH (08:26)
[2019-12-07] MEDS: Non-Formulary Medication 1 Each (Aspirin [Halfprin] 81 MG) PO SCH (08:26)
[2019-12-07] MEDS: LOSARTAN 50 MG PO SCH (08:26)
--- NOTE | 2019-12-07 10:30 | PCM.PN ---
- General Info Date of Service: 12/07/19 Subjective Update: Patient seen at the hospital for continued right leg pain and inability to walk to bear weight. He was not able to go home and remained for the weekend. He states the pain is too severe when trying to bear weight. He denies any chest pain or shortness of breath or other concerns at this time. - Review of Systems General: Reports: No Symptoms Pulmonary: Reports: No Symptoms Cardiovascular: Reports: No Symptoms Musculoskeletal: Reports: Leg Pain, Joint Swelling Neurological: Reports: No Symptoms Psychiatric: Reports: No Symptoms - Patient Data Vitals - Most Recent: Last Vital Signs Temp 36.3 C 12/07/19 08:43 Pulse 80 12/07/19 08:43 Resp 18 12/07/19 08:43 BP 151/69 H 12/07/19 08:43 Pulse Ox 95 12/07/19 08:43 Weight - Most Recent: 178.262 kg Med Orders - Current: Current Medications Acetaminophen (Tylenol Extra Strength) 1,000 mg PO Q6H PRN PRN Reason: Pain (severe 7-10) Last Admin: 12/06/19 20:07 Dose: 1,000 mg Documented by: Albuterol/Ipratropium (Duoneb 3.0-0.5 Mg/3 Ml) 3 ml NEB Q6H PRN PRN Reason: Shortness of Breath Atorvastatin Calcium (Lipitor) 80 mg PO BEDTIME [facility] Last Admin: 12/06/19 20:06 Dose: 80 mg Documented by: Cyclobenzaprine HCl (Flexeril) 10 mg PO TID PRN PRN Reason: Spasms Last Admin: 12/06/19 15:06 Dose: 10 mg Documented by: Non-Formulary Medication (Furosemide [Furosemide]) 20 mg PO QAM [facility] Last Admin: 12/07/19 08:26 Dose: 20 mg Documented by: Non-Formulary Medication (Insulin Pump Syringe, 3 Ml [Minimed [place]]) 1 each ASDIRECTED [facility] Last Admin: 12/04/19 20:51 Dose: 1 each Documented by: Non-Formulary Medication (Meclizine [Antivert]) 25 mg PO TID PRN PRN Reason: Dizziness Non-Formulary Medication (Melatonin [Melatonin]) 3 mg PO DAILY@2130 [facility] Last Admin: 12/06/19 21:11 Dose: 3 mg Documented by: Non-Formulary Medication (Metoclopramide Hcl [Reglan]) 10 mg PO QID [facility] Last Admin: 12/07/19 08:26 Dose: 10 mg Documented by: Non-Formulary Medication (Metoprolol Succinate [Toprol Xl]) 25 mg PO DAILY [facility] Last Admin: 12/07/19 08:26 Dose: 25 mg Documented by: Non-Formulary Medication (Nitroglycerin [Nitrostat]) 0.4 mg SL ASDIRECTED [facility] Non-Formulary Medication (Tamsulosin Hcl [Tamsulosin Hcl]) 0.4 mg PO DAILY [facility] Last Admin: 12/07/19 08:26 Dose: 0.4 mg Documented by: Non-Formulary Medication (Isosorbide Mononitrate [Isosorbide Mononitrate Er]) 120 mg PO DAILY [facility] Last Admin: 12/07/19 08:26 Dose: 120 mg Documented by: Non-Formulary Medication (Gabapentin [Neurontin]) 300 mg PO BID [facility] Last Admin: 12/07/19 08:26 Dose: 300 mg Documented by: Non-Formulary Medication (Aspirin [Halfprin]) 81 mg PO DAILY [facility] Last Admin: 12/07/19 08:26 Dose: 81 mg Documented by: Trelegy *Pt Own Med* 1 puff PO DAILY [facility] Last Admin: 12/07/19 08:26 Dose: 1 puff Documented by: Losartan 50 Mg Tab * (Pt Own Med*) 50 mg PO DAILY [facility] Last Admin: 12/07/19 08:26 Dose: 50 mg Documented by: Pantoprazole Sodium (Protonix) 40 mg PO ACBREAKFAST [facility] Last Admin: 12/07/19 08:23 Dose: 40 mg Documented by: Warfarin 1 Mg Tab * (Pt Own Med*) 0 each PO DAILY@1800 [facility] Last Admin: 12/06/19 18:26 Dose: 1 each Documented by: Psyllium Husk (Metamucil Sugar Free) 1 packet PO DAILY [facility] Last Admin: 12/07/19 08:26 Dose: 1 packet Documented by: Tramadol HCl (Ultram) 50 mg PO Q6H [facility] Last Admin: 12/07/19 08:25 Dose: 50 mg Documented by: Discontinued Medications Acetaminophen (Tylenol Extra Strength) 1,000 mg PO Q6H PRN PRN Reason: Pain (severe 7-10) Last Admin: 12/05/19 07:49 Dose: 1,000 mg Documented by: Hydrocodone Bitart/Acetaminophen ([place] 325-5 Mg) 1 tab PO ONETIME ONE Stop: 12/02/19 22:22 Last Admin: 12/02/19 22:28 Dose: 1 tab Documented by: Albuterol/Ipratropium (Duoneb 3.0-0.5 Mg/3 Ml) 3 ml NEB ONETIME ONE Stop: 12/02/19 21:36 Last Admin: 12/02/19 21:43 Dose: 3 ml Documented by: Atorvastatin Calcium (Lipitor) 80 mg PO BEDTIME [facility] Last Admin: 12/04/19 20:46 Dose: 80 mg Documented by: Ketorolac Tromethamine (Toradol) 60 mg IM ONETIME ONE Stop: 12/02/19 23:31 Last Admin: 12/02/19 23:12 Dose: 60 mg Documented by: Melatonin (Melatonin) Confirm Administered Dose 3 mg .ROUTE .STK-MED ONE Stop: 12/04/19 21:10 Last Admin: 12/05/19 02:53 Dose: Not Given Documented by: Metoclopramide HCl (Reglan) Confirm Administered Dose 10 mg .ROUTE .STK-MED ONE Stop: 12/03/19 17:29 Last Admin: 12/03/19 17:33 Dose: Not Given Documented by: Non-Formulary Medication (Clopidogrel [Plavix]) 75 mg PO DAILY [facility] Non-Formulary Medication (Furosemide [Lasix]) 40 mg PO DAILY@1200 [facility] Non-Formulary Medication (Isosorbide Mononitrate [Isosorbide Mononitrate Er]) 60 mg PO DAILY [facility] Non-Formulary Medication (Methocarbamol [Methocarbamol]) 750 mg PO ASDIRECTED PRN PRN Reason: Pain Non-Formulary Medication (Polyethylene Glycol 3350 [Miralax]) 17 gm PO DAILY PRN PRN Reason: Constipation Non-Formulary Medication (Warfarin Sliding Scale [Coumadin Sliding Scale]) 1 mg PO DAILY [facility] Last Admin: 12/06/19 19:28 Dose: Not Given Documented by: Non-Formulary Medication (Losartan [Cozaar]) 50 mg PO DAILY [facility] Last Admin: 12/05/19 07:55 Dose: 50 mg Documented by: Tramadol HCl (Ultram) 50 mg PO Q6H [facility] Last Admin: 12/06/19 19:30 Dose: Not Given Documented by: Tramadol HCl (Ultram) Confirm Administered Dose 50 mg .ROUTE .STK-MED ONE Stop: 12/04/19 02:18 Last Admin: 12/04/19 14:55 Dose: 50 mg Documented by: Tramadol HCl (Ultram) 50 mg PO Q6H ZEV - Exam General: Alert, Oriented, Cooperative HEENT: Pupils Equal Neck: Supple Lungs: Clear to Auscultation, Normal Respiratory Effort Cardiovascular: Regular Rate, Regular Rhythm GI/Abdominal Exam: Normal Bowel Sounds, Soft, Non-Tender Back Exam: Normal Inspection Extremities: Joint Swelling, Leg Pain, Limited Range of Motion Sepsis Event Note - Evaluation Sepsis Screening Result: No Definite Risk - Focused Exam Vital Signs: Vital Signs Temp Pulse Resp BP Pulse Ox 12/07/19 08:43 36.3 C 80 18 151/69 H 95 Date Exam was Performed: 12/07/19 Time Exam was Performed: 10:26 - Problem List & Annotations (1) Syncope and collapse SNOMED Code(s): 278397713 Code(s): R55 - SYNCOPE AND COLLAPSE Status: Suspected Priority: High Current Visit: Yes - Problem List Review Problem List Initiated/Reviewed/Updated: Yes - My Orders Last 24 Hours: My Active Orders 12/07/19 09:01 Knee wo Cont Rt [CT] Routine - Plan Plan:: Patient to remain in observation at this time. We will do a CT head and have a PT evaluation of the right knee. Discussed Xray results. Considered CT but due to prior arthroplasty the imaging would show significant artifact degrading any findings. No changes to tramadol at this time as it does appear to control the pain and he is comfortable when not using the right knee. 12/07/[address] of right knee done for further management due to continued limited ROM and pain. Consulted Orthopedics and Dr. Beach is here today and willing to see patient in the hospital.
[2019-12-07] MEDS: WARFARIN 1 MG PO SCH (17:53)
[2019-12-07] MEDS: Cyclobenzaprine 10 MG Tab PO PRN (20:35)
[2019-12-07] MEDS: ATORVASTATIN 80 MG PO SCH (20:36)
[2019-12-07] MEDS: Non-Formulary Medication 1 Each (Melatonin [Melatonin] 3 MG) PO SCH (20:45)
--- NOTE | 2019-12-08 08:09 | CR ---
DATE OF SERVICE: 12/07/2019 CLINICAL DATA: Pain Right ankle: There is soft tissue swelling over the medial and lateral malleoli. There is a lucency through the tip of the medial malleolus of the distal tibia on the frontal view consistent with a nondisplaced bony avulsion. There are multiple corticated osseous densities adjacent to the tip of the distal fibula which are most likely old bony avulsions. There are plantar and posterior calcaneal spurs. There are mild osteoarthritic changes involving multiple joints. MTDD
[2019-12-08 08:23] VITALS: BP 180/96; PULSE 74
[2019-12-08] MEDS: Non-Formulary Medication 1 Each (Aspirin [Halfprin] 81 MG) PO SCH (08:24)
[2019-12-08] MEDS: Pantoprazole 40 MG Tab.CR PO SCH (08:24)
[2019-12-08] MEDS: Non-Formulary Medication 1 Each (Metoprolol Succinate [Toprol Xl] 25 MG) PO SCH (08:25)
[2019-12-08] MEDS: Non-Formulary Medication 1 Each (Furosemide [Furosemide] 20 MG) PO SCH (08:25)
[2019-12-08] MEDS: Non-Formulary Medication 1 Each (Gabapentin [Neurontin] 300 MG) PO SCH (08:26)
[2019-12-08] MEDS: Non-Formulary Medication 1 Each (Isosorbide Mononitrate [Isosorbide Mononitrate Er] 120 MG PO SCH (08:26)
[2019-12-08] MEDS: TRELEGY PO SCH (08:27)
[2019-12-08] MEDS: TAMSULOSIN HCL 0.4 MG PO SCH (08:27)
[2019-12-08] MEDS: LOSARTAN 50 MG PO SCH (08:27)
[2019-12-08] MEDS: METOCLOPRAMIDE HCL 10 MG PO SCH ×3 (08:27→18:05)
[2019-12-08] MEDS: Psyllium Husk Powder Sugar Free 3.4 GM Packet PO SCH (08:35)
[2019-12-08] MEDS: Cyclobenzaprine 10 MG Tab PO PRN (09:22)
--- NOTE | 2019-12-08 12:09 | PCM.PN ---
- General Info Date of Service: 12/08/19 Subjective Update: Patient notes minimal improvement but continues to be unable to care for self or ambulate. Functional Status: Reports: Tolerating Diet. Denies: Ambulating - Review of Systems General: Reports: No Symptoms HEENT: Reports: No Symptoms Pulmonary: Reports: No Symptoms Cardiovascular: Reports: No Symptoms Musculoskeletal: Reports: Joint Pain, Joint Swelling Neurological: Reports: No Symptoms Psychiatric: Reports: No Symptoms - Patient Data Vitals - Most Recent: Last Vital Signs Temp 35.6 C L 12/08/19 08:22 Pulse 74 12/08/19 08:22 Resp 20 12/08/19 08:22 BP 180/96 H 12/08/19 08:22 Pulse Ox 98 12/08/19 08:22 Weight - Most Recent: 178.262 kg I&O - Last 24 Hours: Intake & Output 12/07/19 12/08/19 12/08/19 22:59 06:59 14:59 Intake Total 1200 Balance 1200 Med Orders - Current: Current Medications Acetaminophen (Tylenol Extra Strength) 1,000 mg PO Q6H PRN PRN Reason: Pain (severe 7-10) Last Admin: 12/08/19 09:22 Dose: 1,000 mg Documented by: Albuterol/Ipratropium (Duoneb 3.0-0.5 Mg/3 Ml) 3 ml NEB Q6H PRN PRN Reason: Shortness of Breath Atorvastatin Calcium (Lipitor) 80 mg PO BEDTIME [facility] Last Admin: 12/07/19 20:36 Dose: 80 mg Documented by: Cyclobenzaprine HCl (Flexeril) 10 mg PO TID PRN PRN Reason: Spasms Last Admin: 12/08/19 09:22 Dose: 10 mg Documented by: Non-Formulary Medication (Furosemide [Furosemide]) 20 mg PO QAM [facility] Last Admin: 12/08/19 08:25 Dose: 20 mg Documented by: Non-Formulary Medication (Insulin Pump Syringe, 3 Ml [Minimed [place]]) 1 each ASDIRECTED [facility] Last Admin: 12/04/19 20:51 Dose: 1 each Documented by: Non-Formulary Medication (Meclizine [Antivert]) 25 mg PO TID PRN PRN Reason: Dizziness Non-Formulary Medication (Melatonin [Melatonin]) 3 mg PO DAILY@2130 [facility] Last Admin: 12/07/19 20:45 Dose: 3 mg Documented by: Non-Formulary Medication (Metoclopramide Hcl [Reglan]) 10 mg PO QID [facility] Last Admin: 12/08/19 08:27 Dose: 10 mg Documented by: Non-Formulary Medication (Metoprolol Succinate [Toprol Xl]) 25 mg PO DAILY [facility] Last Admin: 12/08/19 08:25 Dose: 25 mg Documented by: Non-Formulary Medication (Nitroglycerin [Nitrostat]) 0.4 mg ASDIRECTED [facility] Non-Formulary Medication (Tamsulosin Hcl [Tamsulosin Hcl]) 0.4 mg PO DAILY [facility] Last Admin: 12/08/19 08:27 Dose: 0.4 mg Documented by: Non-Formulary Medication (Isosorbide Mononitrate [Isosorbide Mononitrate Er]) 120 mg PO DAILY [facility] Last Admin: 12/08/19 08:26 Dose: 120 mg Documented by: Non-Formulary Medication (Gabapentin [Neurontin]) 300 mg PO BID [facility] Last Admin: 12/08/19 08:26 Dose: 300 mg Documented by: Non-Formulary Medication (Aspirin [Halfprin]) 81 mg PO DAILY [facility] Last Admin: 12/08/19 08:24 Dose: 81 mg Documented by: Trelegy *Pt Own Med* 1 puff PO DAILY [facility] Last Admin: 12/08/19 08:27 Dose: 1 puff Documented by: Losartan 50 Mg Tab * (Pt Own Med*) 50 mg PO DAILY [facility] Last Admin: 12/08/19 08:27 Dose: 50 mg Documented by: Pantoprazole Sodium (Protonix) 40 mg PO ACBREAKFAST [facility] Last Admin: 12/08/19 08:24 Dose: 40 mg Documented by: Warfarin 1 Mg Tab * (Pt Own Med*) 0 each PO DAILY@1800 [facility] Last Admin: 12/07/19 17:53 Dose: 1 each Documented by: Psyllium Husk (Metamucil Sugar Free) 1 packet PO DAILY [facility] Last Admin: 12/08/19 08:35 Dose: 1 packet Documented by: Tramadol HCl (Ultram) 50 mg PO Q6H [facility] Last Admin: 12/08/19 08:27 Dose: 50 mg Documented by: Discontinued Medications Acetaminophen (Tylenol Extra Strength) 1,000 mg PO Q6H PRN PRN Reason: Pain (severe 7-10) Last Admin: 12/05/19 07:49 Dose: 1,000 mg Documented by: Hydrocodone Bitart/Acetaminophen ([place] 325-5 Mg) 1 tab PO ONETIME ONE Stop: 12/02/19 22:22 Last Admin: 12/02/19 22:28 Dose: 1 tab Documented by: Albuterol/Ipratropium (Duoneb 3.0-0.5 Mg/3 Ml) 3 ml NEB ONETIME ONE Stop: 12/02/19 21:36 Last Admin: 12/02/19 21:43 Dose: 3 ml Documented by: Atorvastatin Calcium (Lipitor) 80 mg PO BEDTIME [facility] Last Admin: 12/04/19 20:46 Dose: 80 mg Documented by: Ketorolac Tromethamine (Toradol) 60 mg IM ONETIME ONE Stop: 12/02/19 23:31 Last Admin: 12/02/19 23:12 Dose: 60 mg Documented by: Melatonin (Melatonin) Confirm Administered Dose 3 mg .ROUTE .STK-MED ONE Stop: 12/04/19 21:10 Last Admin: 12/05/19 02:53 Dose: Not Given Documented by: Metoclopramide HCl (Reglan) Confirm Administered Dose 10 mg .ROUTE .STK-MED ONE Stop: 12/03/19 17:29 Last Admin: 12/03/19 17:33 Dose: Not Given Documented by: Non-Formulary Medication (Clopidogrel [Plavix]) 75 mg PO DAILY [facility] Non-Formulary Medication (Furosemide [Lasix]) 40 mg PO DAILY@1200 [facility] Non-Formulary Medication (Isosorbide Mononitrate [Isosorbide Mononitrate Er]) 60 mg PO DAILY [facility] Non-Formulary Medication (Methocarbamol [Methocarbamol]) 750 mg PO ASDIRECTED PRN PRN Reason: Pain Non-Formulary Medication (Polyethylene Glycol 3350 [Miralax]) 17 gm PO DAILY PRN PRN Reason: Constipation Non-Formulary Medication (Warfarin Sliding Scale [Coumadin Sliding Scale]) 1 mg PO DAILY [facility] Last Admin: 12/06/19 19:28 Dose: Not Given Documented by: Non-Formulary Medication (Losartan [Cozaar]) 50 mg PO DAILY [facility] Last Admin: 12/05/19 07:55 Dose: 50 mg Documented by: Tramadol HCl (Ultram) 50 mg PO Q6H [facility] Last Admin: 12/06/19 19:30 Dose: Not Given Documented by: Tramadol HCl (Ultram) Confirm Administered Dose 50 mg .ROUTE .STK-MED ONE Stop: 12/04/19 02:18 Last Admin: 12/04/19 14:55 Dose: 50 mg Documented by: Tramadol HCl (Ultram) 50 mg PO Q6H ZEV - Exam General: Alert, Oriented, Cooperative HEENT: Pupils Equal Neck: Supple Lungs: Clear to Auscultation, Normal Respiratory Effort Cardiovascular: Regular Rate, Regular Rhythm GI/Abdominal Exam: Normal Bowel Sounds, Soft, Non-Tender Extremities: Joint Swelling, Leg Pain Sepsis Event Note - Evaluation Sepsis Screening Result: No Definite Risk - Focused Exam Vital Signs: Vital Signs Temp Pulse Resp BP Pulse Ox 12/08/19 08:22 35.6 C L 74 20 180/96 H 98 Date Exam was Performed: 12/08/19 Time Exam was Performed: 12:07 - Problem List & Annotations (1) Syncope and collapse SNOMED Code(s): 760477474 Code(s): R55 - SYNCOPE AND COLLAPSE Status: Suspected Priority: High Current Visit: Yes (2) Right knee pain SNOMED Code(s): 70961039 Code(s): M25.561 - PAIN IN RIGHT KNEE Status: Acute Current Visit: Yes - Problem List Review Problem List Initiated/Reviewed/Updated: Yes - Plan Plan:: Patient to remain in observation at this time. We will do a CT head and have a PT evaluation of the right knee. Discussed Xray results. Considered CT but due to prior arthroplasty the imaging would show significant artifact degrading any findings. No changes to tramadol at this time as it does appear to control the pain and he is comfortable when not using the right knee. 12/07/[address] of right knee done for further management due to continued limited ROM and pain. Consulted Orthopedics and Dr. Beach is here today and willing to see patient in the hospital. 12/08/19 Patient was seen by Orthopedics yesterday. No changes to plan of care at this time. Patient counseled on respite care and management.
--- NOTE | 2019-12-08 16:30 | PCM.DCSUM1 ---
Discharge Summary - Discharge Data Discharge Date: 12/08/19 Discharge Disposition: DC/Tfer to Other 70 Condition: Fair - Referral to Home Health Primary Care Physician: PCP None - Discharge Diagnosis/Problem(s) (1) Syncope and collapse SNOMED Code(s): 238575823 ICD Code: R55 - SYNCOPE AND COLLAPSE Status: Suspected Priority: High Current Visit: Yes (2) Right knee pain SNOMED Code(s): 58004114 ICD Code: M25.561 - PAIN IN RIGHT KNEE Status: Acute Priority: High Current Visit: No Qualifiers: Chronicity: acute Qualified Code(s): M25.561 - Pain in right knee - Patient Summary/Data Consults: Consultations 12/03/19 08:38 Consult to Physical Therapy [PT Evaluation and Treatment] [CONS] Routine Please Evaluate and Treat. PT Reason for Consult: Ambulation Special Instructions: Right knee pain This query below is only for informational purposes and is not editable. Admission Diagnosis/Problem: Syncope and collapse - Patient Instructions Diet: Regular Diet as Tolerated Activity: As Tolerated, No Strenuous Activities, Partial Weight Bearing, Rest and Relax Today Driving: Do Not Drive - Discharge Plan Home Medications: Home Meds Omeprazole 20 mg PO ACBREAKFAST 05/26/15 [History] atorvaSTATin [Lipitor] 80 mg PO BEDTIME 05/26/15 [History] Metoprolol Succinate [Toprol XL] 25 mg PO DAILY 05/25/16 [History] Furosemide 20 mg PO QAM 03/29/17 [History] Furosemide [Lasix] 60 mg PO DAILY@1200 03/29/17 [History] Metoclopramide HCl [Reglan] 10 mg PO QID 03/29/17 [History] Tamsulosin HCl 0.4 mg PO DAILY 03/29/17 [History] Insulin Pump Syringe, 3 mL [Minimed [place]] 1 each MC ASDIRECTED 04/04/17 [History] Isosorbide Mononitrate [Isosorbide Mononitrate ER] 120 mg PO DAILY 09/09/17 [History] Warfarin Sliding Scale [Coumadin Sliding Scale] 1 mg PO DAILY 01/15/18 [History] Aspirin [Halfprin] 81 mg PO DAILY 12/03/19 [History] Gabapentin [Neurontin] 300 mg PO BID 12/03/19 [History] Losartan [Cozaar] 50 mg PO DAILY 12/03/19 [History] Forms: ED Department Discharge Referrals: PCP,None [Primary Care Provider] - - Discharge Summary/Plan Comment DC Time >30 min.: No Discharge Summary/Plan Comment: Patient to be discharged into respite care. Continue PT as directed. Pain management to continue. - Patient Data Vitals - Most Recent: Last Vital Signs Temp 35.6 C L 12/08/19 08:22 Pulse 74 12/08/19 08:22 Resp 20 12/08/19 08:22 BP 180/96 H 12/08/19 08:22 Pulse Ox 98 12/08/19 08:22 Weight - Most Recent: 178.262 kg Med Orders - Current: Current Medications Acetaminophen (Tylenol Extra Strength) 1,000 mg PO Q6H PRN PRN Reason: Pain (severe 7-10) Last Admin: 12/08/19 09:22 Dose: 1,000 mg Documented by: Albuterol/Ipratropium (Duoneb 3.0-0.5 Mg/3 Ml) 3 ml NEB Q6H PRN PRN Reason: Shortness of Breath Atorvastatin Calcium (Lipitor) 80 mg PO BEDTIME [facility] Last Admin: 12/07/19 20:36 Dose: 80 mg Documented by: Cyclobenzaprine HCl (Flexeril) 10 mg PO TID PRN PRN Reason: Spasms Last Admin: 12/08/19 09:22 Dose: 10 mg Documented by: Non-Formulary Medication (Furosemide [Furosemide]) 20 mg PO QAM [facility] Last Admin: 12/08/19 08:25 Dose: 20 mg Documented by: Non-Formulary Medication (Insulin Pump Syringe, 3 Ml [Minimed [place]]) 1 each ASDIRECTED [facility] Last Admin: 12/04/19 20:51 Dose: 1 each Documented by: Non-Formulary Medication (Meclizine [Antivert]) 25 mg PO TID PRN PRN Reason: Dizziness Non-Formulary Medication (Melatonin [Melatonin]) 3 mg PO DAILY@2130 [facility] Last Admin: 12/07/19 20:45 Dose: 3 mg Documented by: Non-Formulary Medication (Metoclopramide Hcl [Reglan]) 10 mg PO QID [facility] Last Admin: 12/08/19 16:15 Dose: 10 mg Documented by: Non-Formulary Medication (Metoprolol Succinate [Toprol Xl]) 25 mg PO DAILY [facility] Last Admin: 12/08/19 08:25 Dose: 25 mg Documented by: Non-Formulary Medication (Nitroglycerin [Nitrostat]) 0.4 mg SL ASDIRECTED [facility] Non-Formulary Medication (Tamsulosin Hcl [Tamsulosin Hcl]) 0.4 mg PO DAILY [facility] Last Admin: 12/08/19 08:27 Dose: 0.4 mg Documented by: Non-Formulary Medication (Isosorbide Mononitrate [Isosorbide Mononitrate Er]) 120 mg PO DAILY [facility] Last Admin: 12/08/19 08:26 Dose: 120 mg Documented by: Non-Formulary Medication (Gabapentin [Neurontin]) 300 mg PO BID [facility] Last Admin: 12/08/19 08:26 Dose: 300 mg Documented by: Non-Formulary Medication (Aspirin [Halfprin]) 81 mg PO DAILY [facility] Last Admin: 12/08/19 08:24 Dose: 81 mg Documented by: Trelegy *Pt Own Med* 1 puff PO DAILY [facility] Last Admin: 12/08/19 08:27 Dose: 1 puff Documented by: Losartan 50 Mg Tab * (Pt Own Med*) 50 mg PO DAILY [facility] Last Admin: 12/08/19 08:27 Dose: 50 mg Documented by: Pantoprazole Sodium (Protonix) 40 mg PO ACBREAKFAST [facility] Last Admin: 12/08/19 08:24 Dose: 40 mg Documented by: Warfarin 1 Mg Tab * (Pt Own Med*) 0 each PO DAILY@1800 [facility] Last Admin: 12/07/19 17:53 Dose: 1 each Documented by: Psyllium Husk (Metamucil Sugar Free) 1 packet PO DAILY [facility] Last Admin: 12/08/19 08:35 Dose: 1 packet Documented by: Tramadol HCl (Ultram) 50 mg PO Q6H [facility] Last Admin: 12/08/19 13:28 Dose: 50 mg Documented by: Discontinued Medications Acetaminophen (Tylenol Extra Strength) 1,000 mg PO Q6H PRN PRN Reason: Pain (severe 7-10) Last Admin: 12/05/19 07:49 Dose: 1,000 mg Documented by: Hydrocodone Bitart/Acetaminophen ([place] 325-5 Mg) 1 tab PO ONETIME ONE Stop: 12/02/19 22:22 Last Admin: 12/02/19 22:28 Dose: 1 tab Documented by: Albuterol/Ipratropium (Duoneb 3.0-0.5 Mg/3 Ml) 3 ml NEB ONETIME ONE Stop: 12/02/19 21:36 Last Admin: 12/02/19 21:43 Dose: 3 ml Documented by: Atorvastatin Calcium (Lipitor) 80 mg PO BEDTIME [facility] Last Admin: 12/04/19 20:46 Dose: 80 mg Documented by: Ketorolac Tromethamine (Toradol) 60 mg IM ONETIME ONE Stop: 12/02/19 23:31 Last Admin: 12/02/19 23:12 Dose: 60 mg Documented by: Melatonin (Melatonin) Confirm Administered Dose 3 mg .ROUTE .STK-MED ONE Stop: 12/04/19 21:10 Last Admin: 12/05/19 02:53 Dose: Not Given Documented by: Metoclopramide HCl (Reglan) Confirm Administered Dose 10 mg .ROUTE .STK-MED ONE Stop: 12/03/19 17:29 Last Admin: 12/03/19 17:33 Dose: Not Given Documented by: Non-Formulary Medication (Clopidogrel [Plavix]) 75 mg PO DAILY [facility] Non-Formulary Medication (Furosemide [Lasix]) 40 mg PO DAILY@1200 [facility] Non-Formulary Medication (Isosorbide Mononitrate [Isosorbide Mononitrate Er]) 60 mg PO DAILY [facility] Non-Formulary Medication (Methocarbamol [Methocarbamol]) 750 mg PO ASDIRECTED PRN PRN Reason: Pain Non-Formulary Medication (Polyethylene Glycol 3350 [Miralax]) 17 gm PO DAILY PRN PRN Reason: Constipation Non-Formulary Medication (Warfarin Sliding Scale [Coumadin Sliding Scale]) 1 mg PO DAILY [facility] Last Admin: 12/06/19 19:28 Dose: Not Given Documented by: Non-Formulary Medication (Losartan [Cozaar]) 50 mg PO DAILY [facility] Last Admin: 12/05/19 07:55 Dose: 50 mg Documented by: Tramadol HCl (Ultram) 50 mg PO Q6H [facility] Last Admin: 12/06/19 19:30 Dose: Not Given Documented by: Tramadol HCl (Ultram) Confirm Administered Dose 50 mg .ROUTE .STK-MED ONE Stop: 12/04/19 02:18 Last Admin: 12/04/19 14:55 Dose: 50 mg Documented by: Tramadol HCl (Ultram) 50 mg PO Q6H [facility]
--- NOTE | 2019-12-10 07:45 | CT ---
DATE OF SERVICE: 12/07/19 CLINICAL DATA: knee pain/injury RIGHT KNEE CT: Multislice axial acquisition was performed. Axial images and sagittal and coronal reformations are reviewed. The patient is status post right total knee arthroplasty. There is significant beam-hardening and streak artifact associated with it. The prosthesis appears grossly intact. There is a 2.0 cm lytic lesion noted within the proximal tibia medially and posteriorly. It does lie adjacent to the tibial component. It has a thin sclerotic margin. It is most likely benign. There is a lucency with cortical disruption involving the distal femoral metaphysis medially. No associated periosteal reaction. There is a small joint effusion. I do not see any other significant findings. [id number] [facility]
== END 2019-12-08 16:30 | disposition other institution (70) ==
LOC: LB.ED 20:56 → LB.MS 22:33 → UNDOADMOB 22:54 → LB.MS 22:54
PROVIDERS: ADMIT Physician Assistant; ATTEND Physician Assistant
DX: R55 Syncope and collapse (principal); M25.561 Pain in right knee; Z79.899 Other long term (current) drug therapy; W18.30XA Fall on same level, unspecified, initial encounter
CPT/HCPCS: 12004; 36415; 70450; 71045; 73560-RT; 73610-RT; 73700-RT; 80048; 85025; 85610; 96372; 99217; 99218; 99224; 99225; 99285-25; A0425; A0429; A9270-GY; G0378; J1885; J7620-GY

== ENCOUNTER 2019-12-08 16:18 | Inpatient (IN) | payer OTHER ==
--- NOTE | 2019-12-08 16:28 | PCM.HP.2 ---
H&P History of Present Illness - General Date of Service: 12/08/19 Admit Problem/Dx: Admission Diagnosis/Problem Admission Diagnosis/Problem Knee pain Source of Information: Patient History Limitations: Reports: No Limitations - History of Present Illness Initial Comments - Free Text/Narative: This is a 74yo M who recent fell on his right knee. He has had difficulty with weight bearing and ambulation since the fall. The right knee is post arthroplasty and imaging do not show any fractures or concerns. There is knee swelling and tenderness medially. Duration of Symptoms: Reports: Day(s):, Improving Location: Reports: Lower Extremity, Right Quality: Reports: Ache Severity: Moderate Improves with: Reports: None Worsens with: Reports: Movement - Related Data Allergies/Adverse Reactions: Allergies Allergy/AdvReac Type Severity Reaction Status Date / Time caffeine Allergy Dizziness Verified 11/16/19 01:33 coffee (Coffea arabica) Allergy Headache Verified 11/16/19 01:33 nifedipine [From Procardia] AdvReac Mild Constipatio Verified 11/16/19 01:33 n Home Medications: Home Meds Omeprazole 20 mg PO ACBREAKFAST 05/26/15 [History] atorvaSTATin [Lipitor] 80 mg PO BEDTIME 05/26/15 [History] Metoprolol Succinate [Toprol XL] 25 mg PO DAILY 05/25/16 [History] Furosemide 20 mg PO QAM 03/29/17 [History] Furosemide [Lasix] 60 mg PO DAILY@1200 03/29/17 [History] Metoclopramide HCl [Reglan] 10 mg PO QID 03/29/17 [History] Tamsulosin HCl 0.4 mg PO DAILY 03/29/17 [History] Insulin Pump Syringe, 3 mL [Minimed [place]] 1 each [facility] ASDIRECTED 04/04/17 [History] Isosorbide Mononitrate [Isosorbide Mononitrate ER] 120 mg PO DAILY 09/09/17 [History] Warfarin Sliding Scale [Coumadin Sliding Scale] 1 mg PO DAILY 01/15/18 [History] Aspirin [Halfprin] 81 mg PO DAILY 12/03/19 [History] Gabapentin [Neurontin] 300 mg PO BID 12/03/19 [History] Losartan [Cozaar] 50 mg PO DAILY 12/03/19 [History] Past Medical History - Past Health History Medical/Surgical History: Denies Medical/Surgical History HEENT History: Reports: Cataract, Impaired Vision, Other (See Below) Other HEENT History: Lu's esophagus Cardiovascular History: Reports: Afib, Angina, Automatic Implantable Cardioverter Defibrillators, High Cholesterol, Hypertension, Pacemaker, SOB on Exertion Other Cardiovascular History: Ablation in July,, angiogram 07/25/2017 Respiratory History: Reports: PE, Pneumonia, Recurrent, Sleep Apnea, SOB Other Respiratory History: wears a cpap at night Gastrointestinal History: Reports: Bowel Obstruction, Chronic Constipation, GERD, Other (See Below) Other Gastrointestinal History: duodenal ulcer Genitourinary History: Reports: Renal Calculus, Other (See Below) Other Genitourinary History: prostate stent placed 10/01/2016 Musculoskeletal History: Reports: Back Pain, Chronic Other Musculoskeletal History: Neck pain causing migraines Neurological History: Reports: Migraines Other Neuro History: Patient had vertebrae in neck fused. Resolved some or most of headaches. Psychiatric History: Reports: Depression, Emotional Problems Endocrine/Metabolic History: Reports: Diabetes, Type II, Obesity/BMI 30+ Other Endocrine/Metabolic History: pt has insulin pump Hematologic History: Reports: B12 Deficiency, Blood Transfusion(s) Oncologic (Cancer) History: Reports: None Dermatologic History: Reports: Other (See Below) Other Dermatologic History: Had pre-cancer lesion removed to R arm. Has lesion to L wrist. - Infectious Disease History Infectious Disease History: Reports: Chicken Pox, Measles, Rubella - Past Surgical History HEENT Surgical History: Reports: Tonsillectomy Cardiovascular Surgical History: Reports: Cardiac Ablation, Pacer Respiratory Surgical History: Reports: None GI Surgical History: Reports: Colonoscopy, Hernia, Inguinal, Other (See Below) Male Surgical History: Reports: Kidney Stone Extraction, Lithotripsy ([facility]) Endocrine Surgical History: Reports: None Neurological Surgical History: Reports: C-Spine, Spinal Fusion Musculoskeletal Surgical History: Reports: Knee Replacement Social & Family History - Family History Family Medical History: Noncontributory HEENT: Reports: Cataract Cardiac: Reports: SC Respiratory: Reports: COPD GI: Reports: None : Reports: None Endocrine/Metabolic: Reports: Diabetes, type II Oncologic: Reports: Brain, Colon, Lung - Caffeine Use Caffeine Use: Reports: None Other Caffeine Use: diet coke - 3-4 cans /day - Living Situation & Occupation Living situation: Reports: Occupation: Unemployed H&P Review of Systems - Review of Systems: Review Of Systems: Comprehensive ROS is negative, except as noted in HPI. Exam - Exam Exam: See Below - Exam General: Alert, Oriented, Cooperative HEENT: PERRLA Neck: Supple Lungs: Clear to Auscultation, Normal Respiratory Effort Cardiovascular: Regular Rate, Regular Rhythm GI/Abdominal Exam: Normal Bowel Sounds Extremities: Normal Inspection Skin: Warm, Dry, Intact Neuro Extensive - Mental Status: Alert, Oriented x3 Sepsis Event Note - Focused Exam Date Exam was Performed: 12/08/19 Time Exam was Performed: 16:26 - Problem List (1) Right knee pain SNOMED Code(s): 66025920 ICD Code: M25.561 - PAIN IN RIGHT KNEE Status: Acute Priority: High Current Visit: Yes Qualifiers: Chronicity: acute Qualified Code(s): M25.561 - Pain in right knee Problem List Initiated/Reviewed/Updated: Yes Orders Last 24hrs: Active Orders 24 hr Category Date Time Status Patient Status [ADT] Routine ADT 12/08/19 16:23 Ordered Oxygen Therapy [RC] PRN Care 12/08/19 16:23 Ordered Vital Signs [RC] Q4H Care 12/08/19 16:23 Ordered Heart Healthy Diet [DIET] Diet 12/08/19 Dinner Ordered Assessment/Plan Comment:: Patient will continue with therapy and pain management until he is able to ambulate and care for himself.
[2019-12-08] MEDS ORDERED: Non-Formulary Medication 1 Each (Cyclobenzaprine [Flexeril] 10 MG) PO PRN (18:53)
[2019-12-08] MEDS ORDERED: INSULIN PUMP MC SCH (19:00)
[2019-12-08] MEDS ORDERED: Melatonin 3 MG Tab PO SCH (20:00)
[2019-12-09] MEDS: ATORVASTATIN 80 MG PO SCH ×2 (05:49→19:20)
[2019-12-09] MEDS: GABAPENTIN 300 MG PO SCH ×3 (05:49→19:20)
[2019-12-09] MEDS: TRAMADOL 50 MG PO SCH ×5 (05:49→19:20)
[2019-12-09] MEDS: METOCLOPRAMIDE HCL 10 MG PO SCH ×5 (05:50→19:20)
[2019-12-09] MEDS: Non-Formulary Medication 1 Each (Metoprolol Succinate [Toprol Xl] 25 MG) PO SCH (08:00)
[2019-12-09] MEDS: TAMSULOSIN HCL 0.4 MG PO SCH (08:00)
[2019-12-09] MEDS: Non-Formulary Medication 1 Each (Aspirin [Halfprin] 81 MG) PO SCH (08:00)
[2019-12-09] MEDS: Non-Formulary Medication 1 Each (Omeprazole [Omeprazole] 20 MG) PO SCH (08:00)
[2019-12-09] MEDS: Non-Formulary Medication 1 Each (Furosemide [Furosemide] 40 MG) PO SCH (08:00)
[2019-12-09] MEDS: Non-Formulary Medication 1 Each (Fluticasone/Umeclidin/Vilanter [Trelegy Ellipta 100-62.5- INH SCH (08:00)
[2019-12-09] MEDS ORDERED: WARFARIN 1 MG PO SCH (08:00)
[2019-12-09] MEDS: Non-Formulary Medication 1 Each (Isosorbide Mononitrate [Isosorbide Mononitrate Er] 120 MG PO SCH (08:00)
[2019-12-09] MEDS: Non-Formulary Medication 1 Each (Losartan [Cozaar] 50 MG) PO SCH (08:00)
[2019-12-09] MEDS: ACETAMINOPHEN 500 MG PO PRN (12:17)
[2019-12-09] MEDS: FUROSEMIDE 60 MG PO SCH (12:17)
[2019-12-09] MEDS: [UNRECOGNIZED DRUG - OTHER] PO SCH (15:44)
[2019-12-09] MEDS: MELATONIN 5 MG PO SCH (19:43)
[2019-12-10] MEDS: ACETAMINOPHEN 500 MG PO PRN ×2 (03:14→09:59)
[2019-12-10] MEDS: TRAMADOL 50 MG PO SCH ×4 (06:18→19:11)
[2019-12-10] MEDS: Non-Formulary Medication 1 Each (Aspirin [Halfprin] 81 MG) PO SCH (08:26)
[2019-12-10] MEDS: Non-Formulary Medication 1 Each (Fluticasone/Umeclidin/Vilanter [Trelegy Ellipta 100-62.5- INH SCH (08:26)
[2019-12-10] MEDS: GABAPENTIN 300 MG PO SCH ×2 (08:27→20:13)
[2019-12-10] MEDS: Non-Formulary Medication 1 Each (Furosemide [Furosemide] 40 MG) PO SCH (08:27)
[2019-12-10] MEDS: Non-Formulary Medication 1 Each (Isosorbide Mononitrate [Isosorbide Mononitrate Er] 120 MG PO SCH (08:28)
[2019-12-10] MEDS: Non-Formulary Medication 1 Each (Losartan [Cozaar] 50 MG) PO SCH (08:30)
[2019-12-10] MEDS: Non-Formulary Medication 1 Each (Omeprazole [Omeprazole] 20 MG) PO SCH (08:43)
[2019-12-10] MEDS: Non-Formulary Medication 1 Each (Metoprolol Succinate [Toprol Xl] 25 MG) PO SCH (08:43)
[2019-12-10] MEDS: METOCLOPRAMIDE HCL 10 MG PO SCH ×4 (08:43→20:12)
[2019-12-10] MEDS: [UNRECOGNIZED DRUG - OTHER] PO SCH (08:44)
[2019-12-10] MEDS: TAMSULOSIN HCL 0.4 MG PO SCH (08:44)
[2019-12-10] MEDS: FUROSEMIDE 60 MG PO SCH (13:29)
[2019-12-10] MEDS: MELATONIN 5 MG PO SCH (20:13)
[2019-12-10] MEDS: ATORVASTATIN 80 MG PO SCH (20:13)
[2019-12-11] MEDS: TRAMADOL 50 MG PO SCH ×3 (00:37→12:56)
[2019-12-11] MEDS: Non-Formulary Medication 1 Each (Isosorbide Mononitrate [Isosorbide Mononitrate Er] 120 MG PO SCH (07:22)
[2019-12-11] MEDS: Non-Formulary Medication 1 Each (Fluticasone/Umeclidin/Vilanter [Trelegy Ellipta 100-62.5- INH SCH (07:23)
[2019-12-11] MEDS: Non-Formulary Medication 1 Each (Losartan [Cozaar] 50 MG) PO SCH (07:23)
[2019-12-11] MEDS: GABAPENTIN 300 MG PO SCH (07:23)
[2019-12-11] MEDS: Non-Formulary Medication 1 Each (Omeprazole [Omeprazole] 20 MG) PO SCH (07:24)
[2019-12-11] MEDS: Non-Formulary Medication 1 Each (Aspirin [Halfprin] 81 MG) PO SCH (07:24)
[2019-12-11] MEDS: Non-Formulary Medication 1 Each (Metoprolol Succinate [Toprol Xl] 25 MG) PO SCH (07:24)
[2019-12-11] MEDS: METOCLOPRAMIDE HCL 10 MG PO SCH ×2 (07:25→12:06)
[2019-12-11] MEDS: ACETAMINOPHEN 500 MG PO PRN ×2 (07:25→12:56)
[2019-12-11] MEDS: TAMSULOSIN HCL 0.4 MG PO SCH (08:55)
[2019-12-11] MEDS: Non-Formulary Medication 1 Each (Furosemide [Furosemide] 40 MG) PO SCH (08:56)
[2019-12-11] MEDS: [UNRECOGNIZED DRUG - OTHER] PO SCH (08:57)
[2019-12-11] MEDS: FUROSEMIDE 60 MG PO SCH (12:02)
[2019-12-11 12:48] VITALS: BP 123/62; PULSE 87
--- NOTE | 2019-12-11 14:33 | PCM.DCSUM1 ---
Discharge Summary - Discharge Data Discharge Date: 12/11/19 Discharge Disposition: Home, Self-Care 01 Condition: Good - Referral to Home Health Primary Care Physician: Hugo Dumas MD - Discharge Diagnosis/Problem(s) (1) Right knee pain SNOMED Code(s): 25566959 ICD Code: M25.561 - PAIN IN RIGHT KNEE Status: Acute Priority: High Current Visit: Yes Qualifiers: Chronicity: acute Qualified Code(s): M25.561 - Pain in right knee - Patient Summary/Data Consults: Consultations 12/08/19 16:28 Consult to Physical Therapy [PT Evaluation and Treatment] [CONS] Routine Please Evaluate and Treat. PT Reason for Consult: Ambulation This query below is only for informational purposes and is not editable. Admission Diagnosis/Problem: Knee pain 12/10/19 16:21 PT Evaluation and Treatment [CONS] Routine Please Evaluate and Treat. PT Reason for Consult: Ambulation Pending Discharge: Yes Discharge Disposition: Home Special Instructions: Needs to be able to use stairs safely and walk with walker 40ft. This query below is only for informational purposes and is not editable. Admission Diagnosis/Problem: Knee pain 12/10/19 16:23 Consult [facility] [CONS] Routine Note: The date patient to be seen can be entered as a specific date and or to be seen so many days post discharge it is a free text question Date Patient to be Seen: as soon as possible Reason for Consult: needs assistance with showers and skin care Date Notified: 12/10/19 Time Notified: 16:27 Special Instructions: Is unable to shower independently d/t weight. Note: SN Can Assess Patient for Home Bound Criteria Upon Admission Patient Currently on Medicare: ___Yes ___No ___Unknown Patient Meets Home Bound Criteria: ___Yes ___No ___Unknown Patient Being Followed by Primary Care Provider/Clinic: ___Yes ___No ___Unknown Primary Care Provider/Clinic Name: Please Send the Following Items with the Patient or to the Home Health Agency if Available ____Contact Information: Current Address and Phone Number ____Current Medication List ____Discharge Summary ____Face Sheet ____History & Physical - Patient Instructions Diet: Usual Diet as Tolerated Activity: As Tolerated Driving: Do Not Drive - Discharge Plan Prescriptions/Med Rec: traMADol [Ultram] 50 mg PO Q6H #30 tab Home Medications: Home Meds Omeprazole 20 mg PO DAILY 05/26/15 [History] atorvaSTATin [Lipitor] 80 mg PO BEDTIME 05/26/15 [History] Metoprolol Succinate [Toprol XL] 25 mg PO DAILY 05/25/16 [History] Furosemide 20 mg PO QAM 03/29/17 [History] Metoclopramide HCl [Reglan] 10 mg PO QID 03/29/17 [History] Tamsulosin HCl 0.4 mg PO DAILY 03/29/17 [History] Insulin Pump Syringe, 3 mL [Minimed [place]] 1 each MC ASDIRECTED 04/04/17 [History] Isosorbide Mononitrate [Isosorbide Mononitrate ER] 120 mg PO DAILY 09/09/17 [History] Aspirin [Halfprin] 81 mg PO DAILY 12/03/19 [History] Gabapentin [Neurontin] 300 mg PO BID 12/03/19 [History] Losartan [Cozaar] 50 mg PO DAILY 12/03/19 [History] Acetaminophen 1,000 mg PO Q6H PRN 12/08/19 [History] Cyclobenzaprine [Flexeril] 10 mg PO TID PRN 12/08/19 [History] Fluticasone/Umeclidin/Vilanter [Trelegy Ellipta 100-62.5-25] 1 each IH DAILY 12/08/19 [History] Melatonin 3 mg PO BEDTIME 12/08/19 [History] Psyllium with Sucrose [Metamucil] 1 each PO DAILY 12/08/19 [History] Warfarin [Coumadin] 1 mg PO DAILY 12/08/19 [History] Non-Formulary Medication [NF Drug] 1 each PO BEDTIME each 12/11/19 [Rx] traMADol [Ultram] 50 mg PO Q6H #30 tab 12/11/19 [Rx] Patient Handouts: Deconditioning, Understanding Your Risk for Falls - Discharge Summary/Plan Comment DC Time >30 min.: No Discharge Summary/Plan Comment: Counseled on knee care and f/u for any issues or concerns. Rtc as needed. - Patient Data Vitals - Most Recent: Last Vital Signs Temp 36.2 C 12/11/19 10:00 Pulse 87 12/11/19 10:00 Resp 20 12/11/19 10:00 BP 123/62 12/11/19 10:00 Pulse Ox 96 12/11/19 10:00 Weight - Most Recent: 183.433 kg Med Orders - Current: Current Medications Non-Formulary Medication 1 Each ( Acetaminophen [ Acetaminophen] 500 Mg) 1,000 mg PO Q6H PRN PRN Reason: Pain Last Admin: 12/11/19 12:56 Dose: 1,000 mg Documented by: Non-Formulary Medication (Aspirin [Halfprin]) 81 mg PO DAILY [facility] Last Admin: 12/11/19 07:24 Dose: 81 mg Documented by: Atorvastatin [ Lipitor] 80 MgPt Own 80 mg PO BEDTIME [facility] Last Admin: 12/10/19 20:13 Dose: 80 mg Documented by: Non-Formulary Medication (Cyclobenzaprine [Flexeril]) 10 mg PO TID PRN PRN Reason: Pain Last Admin: 12/09/19 15:50 Dose: 10 mg Documented by: Non-Formulary Medication (Fluticasone/Umeclidin/Vilanter [Trelegy Ellipta 100-62.5-25]) 1 each INH DAILY [facility] Last Admin: 12/11/19 07:23 Dose: 1 each Documented by: Non-Formulary Medication 1 Each ( Furosemide [ Furosemide] 40 Mg) 20 mg PO QAM [facility] Last Admin: 12/11/19 08:56 Dose: 20 mg Documented by: Non-Formulary Medication (Furosemide [Lasix]) 60 mg PO DAILY@1200 [facility] Last Admin: 12/11/19 12:02 Dose: 60 mg Documented by: Gabapentin [ Neurontin] 300 Mg Pt Own 300 mg PO BID [facility] Last Admin: 12/11/19 07:23 Dose: 300 mg Documented by: Non-Formulary Medication (Insulin Pump Syringe, 3 Ml [Minimed [place]]) 1 each MC ASDIRECTED [facility] Non-Formulary Medication (Isosorbide Mononitrate [Isosorbide Mononitrate Er]) 120 mg PO DAILY [facility] Last Admin: 12/11/19 07:22 Dose: 120 mg Documented by: Non-Formulary Medication (Losartan [Cozaar]) 50 mg PO DAILY [facility] Last Admin: 12/11/19 07:23 Dose: 50 mg Documented by: Metoclopramide Hcl [ Reglan] 10 Mg Pt Own 10 mg PO QID [facility] Last Admin: 12/11/19 12:06 Dose: 10 mg Documented by: Non-Formulary Medication (Metoprolol Succinate [Toprol Xl]) 25 mg PO DAILY [facility] Last Admin: 12/11/19 07:24 Dose: 25 mg Documented by: Non-Formulary Medication (Omeprazole [Omeprazole]) 20 mg PO DAILY [facility] Last Admin: 12/11/19 07:24 Dose: 20 mg Documented by: Non-Formulary Medication (Psyllium With Sucrose [Metamucil]) 1 each PO DAILY [facility] Last Admin: 12/11/19 08:57 Dose: 1 each Documented by: Non-Formulary Medication (Tamsulosin Hcl [Tamsulosin Hcl]) 0.4 mg PO DAILY [facility] Last Admin: 12/11/19 08:55 Dose: 0.4 mg Documented by: Tramadol [Ultram] 50 (Mg Pt Own) 50 mg PO Q6H [facility] Last Admin: 12/11/19 12:56 Dose: 50 mg Documented by: Non-Formulary Medication (Warfarin [Coumadin]) 1 mg PO ASDIRECTED [facility] Last Admin: 12/10/19 18:24 Dose: 1 mg Documented by: Melatonin 5mg (Tablets) 1 each PO BEDTIME [facility] Last Admin: 12/10/19 20:13 Dose: 1 each Documented by:
== END 2019-12-11 14:45 | disposition home or self-care (01) | DRG 556 ==
LOC: UNDOADMIN 16:18 → LB.MS 16:18
PROVIDERS: ADMIT Family Medicine; ATTEND Family Medicine
DX: M25.561 Pain in right knee (principal); Z68.43 Body mass index [BMI] 50.0-59.9, adult; I48.91 Unspecified atrial fibrillation; K59.09 Other constipation; K21.9 Gastro-esophageal reflux disease without esophagitis; F32.9 Major depressive disorder, single episode, unspecified; E11.9 Type 2 diabetes mellitus without complications; E66.9 Obesity, unspecified; M54.9 Dorsalgia, unspecified; G89.29 Other chronic pain; Z91.09 Other allergy status, other than to drugs and biological substances; Z88.8 Allergy status to other drugs, medicaments and biological substances; Z79.4 Long term (current) use of insulin; Z79.01 Long term (current) use of anticoagulants; Z79.82 Long term (current) use of aspirin; Z79.899 Other long term (current) drug therapy; Z95.0 Presence of cardiac pacemaker; Z86.711 Personal history of pulmonary embolism; Z87.01 Personal history of pneumonia (recurrent)
CPT/HCPCS: 97161-GP; A9270-GY

== ENCOUNTER 2020-01-25 11:22 | Emergency (ER) | payer MEDICARE ==
[2020-01-25] MEDS ORDERED: Ketorolac 30 MG/ML SDV IM ONE (12:50)
[2020-01-25] MEDS ORDERED: Ketorolac 30 MG/ML SDV ONE (13:00)
--- NOTE | 2020-01-25 13:07 | EDM.PDOC ---
ED HPI GENERAL MEDICAL PROBLEM - General Chief Complaint: Chest Pain Stated Complaint: CHEST PAIN SOB NEW ONSET Time Seen by Provider: 01/25/20 11:35 Source of Information: Reports: EMS History Limitations: Reports: No Limitations - History of Present Illness Onset: Sudden Onset Date: 01/25/20 Onset Time: 08:00 Location: Reports: Neck, Chest, Upper Extremity, Left Quality: Reports: Ache, Same as Previous Episode Severity: Moderate Improves with: Reports: Rest Worsens with: Reports: Breathing, Rest Associated Symptoms: Reports: Shortness of Breath. Denies: Cough, Diaphoresis, Malaise, Nausea/Vomiting - Related Data Allergies Allergy/AdvReac Type Severity Reaction Status Date / Time caffeine Allergy Dizziness Verified 11/16/19 01:33 coffee (Coffea arabica) Allergy Headache Verified 11/16/19 01:33 nifedipine [From Procardia] AdvReac Mild Constipatio Verified 11/16/19 01:33 n Home Meds: Home Meds Omeprazole 20 mg PO DAILY 05/26/15 [History] atorvaSTATin [Lipitor] 80 mg PO BEDTIME 05/26/15 [History] Metoprolol Succinate [Toprol XL] 25 mg PO DAILY 05/25/16 [History] Furosemide 20 mg PO QAM 03/29/17 [History] Metoclopramide HCl [Reglan] 10 mg PO QID 03/29/17 [History] Tamsulosin HCl 0.4 mg PO DAILY 03/29/17 [History] Insulin Pump Syringe, 3 mL [Minimed [place]] 1 each ASDIRECTED 04/04/17 [History] Isosorbide Mononitrate [Isosorbide Mononitrate ER] 120 mg PO DAILY 09/09/17 [History] Aspirin [Halfprin] 81 mg PO DAILY 12/03/19 [History] Gabapentin [Neurontin] 300 mg PO BID 12/03/19 [History] Losartan [Cozaar] 50 mg PO DAILY 12/03/19 [History] Acetaminophen 1,000 mg PO Q6H PRN 12/08/19 [History] Cyclobenzaprine [Flexeril] 10 mg PO TID PRN 12/08/19 [History] Fluticasone/Umeclidin/Vilanter [Trelegy Ellipta 100-62.5-25] 1 each IH DAILY 07/07/20 [History] Melatonin 3 mg PO BEDTIME 12/08/19 [History] Psyllium with Sucrose [Metamucil] 1 each PO DAILY 12/08/19 [History] Warfarin [Coumadin] 1 mg PO DAILY 12/08/19 [History] Non-Formulary Medication [NF Drug] 1 each PO BEDTIME each 12/11/19 [Rx] traMADol [Ultram] 50 mg PO Q6H #30 tab 12/11/19 [Rx] Past Medical History - Past Health History Medical/Surgical History: Denies Medical/Surgical History HEENT History: Reports: Cataract, Impaired Vision, Other (See Below) Other HEENT History: Lu's esophagus Cardiovascular History: Reports: Afib, Angina, Automatic Implantable C ardioverter Defibrillators, High Cholesterol, Hypertension, Pacemaker, SOB on Exertion Other Cardiovascular History: Ablation in July,, angiogram 07/25/2017 Respiratory History: Reports: PE, Pneumonia, Recurrent, Sleep Apnea, SOB Other Respiratory History: wears a cpap at night Gastrointestinal History: Reports: Bowel Obstruction, Chronic Constipation, GERD, Other (See Below) Other Gastrointestinal History: duodenal ulcer Genitourinary History: Reports: Renal Calculus, Other (See Below) Other Genitourinary History: prostate stent placed 10/01/2016 Musculoskeletal History: Reports: Back Pain, Chronic Other Musculoskeletal History: Neck pain causing migraines Neurological History: Reports: Migraines Other Neuro History: Patient had vertebrae in neck fused. Resolved some or most of headaches. Psychiatric History: Reports: Depression, Emotional Problems Endocrine/Metabolic History: Reports: Diabetes, Type II, Obesity/BMI 30+ Other Endocrine/Metabolic History: pt has insulin pump Hematologic History: Reports: B12 Deficiency, Blood Transfusion(s) Oncologic (Cancer) History: Reports: None Dermatologic History: Reports: Other (See Below) Other Dermatologic History: Had pre-cancer lesion removed to R arm. Has lesion to L wrist. - Infectious Disease History Infectious Disease History: Reports: Chicken Pox, Measles, Rubella - Past Surgical History HEENT Surgical History: Reports: Tonsillectomy Cardiovascular Surgical History: Reports: Cardiac Ablation, Pacer Respiratory Surgical History: Reports: None GI Surgical History: Reports: Colonoscopy, Hernia, Inguinal, Other (See Below) Male Surgical History: Reports: Kidney Stone Extraction, Lithotripsy (ESWL) Endocrine Surgical History: Reports: None Neurological Surgical History: Reports: C-Spine, Spinal Fusion Musculoskeletal Surgical History: Reports: Knee Replacement Social & Family History - Family History Family Medical History: Noncontributory HEENT: Reports: Cataract Cardiac: Reports: MS Respiratory: Reports: COPD GI: Reports: None : Reports: None Endocrine/Metabolic: Reports: Diabetes, type II Oncologic: Reports: Brain, Colon, Lung - Caffeine Use Caffeine Use: Reports: None Other Caffeine Use: diet coke - 3-4 cans /day - Living Situation & Occupation Living situation: Reports: Occupation: Unemployed ED ROS GENERAL - Review of Systems Review Of Systems: See Below Constitutional: Reports: Fatigue. Denies: Fever, Weakness, Night Sweats, Diaphoresis, Decreased Appetite HEENT: Reports: No Symptoms Respiratory: Reports: Shortness of Breath. Denies: Wheezing, Cough, Sputum, Hemoptysis Cardiovascular: Reports: Chest Pain. Denies: Blood Pressure Problem Endocrine: Reports: High Glucose GI/Abdominal: Reports: Constipation Neurological: Denies: Confusion, Headache, Numbness Psychiatric: Reports: No Symptoms ED EXAM, GENERAL - Physical Exam Exam: See Below Exam Limited By: No Limitations General Appearance: Alert, WD/WN, No Apparent Distress, Anxious, Mild Distress Throat/Mouth: Normal Inspection, Normal Lips Head: Atraumatic, Normocephalic. No: Facial Swelling Neck: Normal Inspection, Supple, Non-Tender, Full Range of Motion Respiratory/Chest: No Respiratory Distress, Lungs Clear, Normal Breath Sounds, No Accessory Muscle Use, Chest Non-Tender. No: Respiratory Distress, Decreased Breath Sounds, Crackles, Rales Cardiovascular: Normal Peripheral Pulses, Regular Rate, Rhythm GI/Abdominal: Normal Bowel Sounds Back Exam: Normal Inspection Extremities: Normal Inspection Neurological: Alert, Oriented, CN II-XII Intact, Normal Cognition Psychiatric: Normal Affect Skin Exam: Warm, Dry, Intact, Normal Color Course - Orders/Labs/Meds Orders: Active Orders 24 hr Category Date Time Status CXR [Chest 1V Frontal] [CR] Stat Exams 01/25/20 11:48 Taken Labs: Laboratory Tests 01/25/20 01/25/20 01/25/20 Range/Units 11:55 11:56 11:56 WBC 12.2 H (4.0-11.0) K/uL RBC 4.76 (4.50-6.50) M/uL Hgb 13.7 (13.0-18.0) g/dL Hct 41.6 (40.0-54.0) % MCV 87 (76-96) fL MCH 28.8 (27.0-32.0) pg MCHC 32.9 (31.0-35.0) g/dL RDW 15.0 (11.0-16.0) % Plt Count 165 (150-400) K/uL MPV 10.6 H (6.0-10.0) fL Neut % (Auto) 62.2 (45.0-70.0) % Lymph % (Auto) 27.9 (20.0-40.0) % [place] % (Auto) 8.4 (3.0-10.0) % Eos % (Auto) 1.1 (1.0-5.0) % Baso % (Auto) 0.4 (0.0-0.5) % Neut # (Auto) 7.60 H (2.00-7.50) K/uL Lymph # (Auto) 3.41 (1.50-4.00) K/uL [place] # (Auto) 1.03 H (0.20-0.80) K/uL Eos # (Auto) 0.13 (0.04-0.40) K/uL Baso # (Auto) 0.05 (0.02-0.10) K/uL PT 19.6 H (9.0-11.5) sec INR 1.9 (1.0-3.5) APTT 37.5 H (24.4-33.2) SECONDS Sodium 141 (136-145) mmol/L Potassium 3.6 (3.5-5.1) mmol/L Chloride 103 (98-107) mmol/L Carbon Dioxide 27.4 (21.0-32.0) mmol/L Anion Gap 14.2 (5.0-15.0) mmol/L BUN 23 (8-26) mg/dL Creatinine 1.54 H (0.70-1.30) mg/dL Est Cr Clr Drug Dosing TNP Estimated GFR (MDRD) 45 L (>60) MLS/MIN BUN/Creatinine Ratio 14.9 (6-25) Glucose 198 H (74-100) mg/dL Calcium 8.2 L (8.5-10.1) mg/dL Total Bilirubin 0.7 D (0.0-1.0) mg/dL AST 19 (15-37) U/L ALT 29 (12-78) U/L Alkaline Phosphatase 112 (46-116) U/L Troponin I < 0.017 (0.000-0.060) ng/mL Total Protein 7.0 (6.4-8.2) g/dL Albumin 3.3 L (3.4-5.0) g/dL Globulin 3.7 (2.2-4.2) g/dL Albumin/Globulin Ratio 0.9 (0.8-2.0) Meds: Medications Discontinued Medications Generic Name Dose Route Start Last Admin Trade Name Davidq PRN Reason Stop Dose Admin Ketorolac Tromethamine 30 mg 01/25/20 12:50 Toradol IM 01/25/20 12:51 ONETIME ONE Ketorolac Tromethamine Confirm 01/25/20 13:00 Toradol Administered 01/25/20 13:01 Dose 30 mg .ROUTE .STK-MED ONE - Re-Assessments/Exams Free Text/Narrative Re-Assessment/Exam: 01/25/20 12:30 Still some chest soreness and mild SOB. Cardiac enzymes normal Departure - Departure Time of Disposition: 13:16 Disposition: Home, Self-Care 01 Condition: Fair Clinical Impression: Chest pain Qualifiers: Chest pain type: unspecified Qualified Code(s): R07.9 - Chest pain, unspecified Diabetes mellitus Qualifiers: Diabetes mellitus type: type 2 Diabetes mellitus complication status: without complication Qualified Code(s): E11.9 - Type 2 diabetes mellitus without complications - Discharge Information Instructions: Type 2 Diabetes Mellitus, Diagnosis, Adult, Nonspecific Chest Pain, Pediatric, Nonspecific Chest Pain, Adult, Nonspecific Chest Pain, Adult, [id number] Referrals: PCP,None [Primary Care Provider] - Forms: ED Department Discharge Additional Instructions: Please follow up with your primary care provider as needed if the pain continues. - My Orders Last 24 Hours: My Active Orders 01/25/20 11:48 CXR [Chest 1V Frontal] [CR] Stat - Assessment/Plan Last 24 Hours: My Active Orders 01/25/20 11:48 CXR [Chest 1V Frontal] [CR] Stat
--- NOTE | 2020-01-25 13:42 | CR ---
DATE OF SERVICE: 01/25/20 CLINICAL DATA: chest pain AP CHEST: Comparison is made to a prior exam dated 12/02/19. The cardiac pacer and pacer wires remain unchanged in position. The heart remains enlarged, unchanged. The lungs are clear. No pneumothorax. No pleural effusions. No significant changes from the prior study. No evidence of acute intrathoracic disease. [id number] [facility]
[2020-01-25 19:29] VITALS: BP 142/65; PULSE 88
== END 2020-01-25 13:35 | disposition home or self-care (01) ==
LOC: LB.ED 11:22
DX: R07.9 Chest pain, unspecified (principal); E11.9 Type 2 diabetes mellitus without complications; I48.91 Unspecified atrial fibrillation; E66.9 Obesity, unspecified; E78.00 Pure hypercholesterolemia, unspecified; I10 Essential (primary) hypertension; Z86.711 Personal history of pulmonary embolism; Z91.09 Other allergy status, other than to drugs and biological substances; Z88.8 Allergy status to other drugs, medicaments and biological substances; Z79.899 Other long term (current) drug therapy; K21.9 Gastro-esophageal reflux disease without esophagitis; Z79.4 Long term (current) use of insulin; Z79.01 Long term (current) use of anticoagulants; Z79.82 Long term (current) use of aspirin
CPT/HCPCS: 36415; 71045; 80053; 84484; 85025; 85610; 85730; 96372; 99285; J1885

== ENCOUNTER 2020-03-03 10:51 | Emergency (ER) | payer MEDICARE ==
[2020-03-03] MEDS ORDERED: Morphine 4 MG/ML VIAL IVPUSH ONE ×2 (11:51)
[2020-03-03] MEDS ORDERED: Ketorolac 30 MG/ML SDV IVPUSH ONE (12:25)
--- NOTE | 2020-03-03 14:17 | EDM.PDOC ---
ED HPI GENERAL MEDICAL PROBLEM - General Chief Complaint: General Stated Complaint: CHEST PAIN/SOB Time Seen by Provider: 03/03/20 11:30 Source of Information: Reports: Patient History Limitations: Reports: No Limitations - History of Present Illness INITIAL COMMENTS - FREE TEXT/NARRATIVE: Patient is a 74 y/o male with PMHx significant for chronic chest pain, chronic SOB, dizziness, DM, AFIB (on coumadin), sleep apnea (CPAP at night), pacemaker/defibrillator, HLD, HTN, who presents for sudden onset chest pain prior to arrival. he describes the chest pain as sharp, constant, originally below his sternum and is now in the left chest, no radiation. Associated shortness of breath with minimal exertion. Patient already took 4 baby aspirin and 3 nitro prior to EMS transport here, which improved his pain from 6/10 to 4/10. Patient sees Dr. Mojica (cardiology in [place]). Onset: Sudden Improves with: Reports: None Worsens with: Reports: Movement Associated Symptoms: Reports: Chest Pain, Shortness of Breath Treatments MAINTENANCE SCHEDULER: Reports: Aspirin, Nitroglycerin Chest Pain Score (Numeric/FACES): 8 - Related Data Allergies Allergy/AdvReac Type Severity Reaction Status Date / Time caffeine Allergy Dizziness Verified 03/03/20 11:36 coffee (Coffea arabica) Allergy Headache Verified 03/03/20 11:36 nifedipine [From Procardia] AdvReac Mild Constipatio Verified 03/03/20 11:36 n Home Meds: Home Meds RX: Omeprazole 20 mg PO DAILY 05/26/15 [History] RX: atorvaSTATin [Lipitor] 80 mg PO BEDTIME 05/26/15 [History] RX: Metoprolol Succinate [Toprol XL] 25 mg PO DAILY 05/25/16 [History] RX: Furosemide 20 mg PO QAM 03/29/17 [History] RX: Metoclopramide HCl [Reglan] 10 mg PO QID 03/29/17 [History] RX: Tamsulosin HCl 0.4 mg PO DAILY 03/29/17 [History] RX: Insulin Pump Syringe, 3 mL [Minimed [place]] 1 each MC ASDIRECTED 04/04/17 [History] RX: Isosorbide Mononitrate [Isosorbide Mononitrate ER] 120 mg PO DAILY 09/09/17 [History] RX: Aspirin [Halfprin] 81 mg PO DAILY 12/03/19 [History] RX: Gabapentin [Neurontin] 300 mg PO BID 12/03/19 [History] RX: Losartan [Cozaar] 50 mg PO DAILY 12/03/19 [History] RX: Acetaminophen 1,000 mg PO Q6H PRN 12/08/19 [History] RX: Cyclobenzaprine [Flexeril] 10 mg PO TID PRN 12/08/19 [History] RX: Fluticasone/Umeclidin/Vilanter [Trelegy Ellipta 100-62.5-25] 1 each IH DAILY 12/08/19 [History] RX: Melatonin 3 mg PO BEDTIME 12/08/19 [History] RX: Psyllium with Sucrose [Metamucil] 1 each PO DAILY 12/08/19 [History] RX: Warfarin [Coumadin] 1 mg PO DAILY 12/08/19 [History] RX: Non-Formulary Medication [NF Drug] 1 each PO BEDTIME each 12/11/19 [Rx] RX: traMADol [Ultram] 50 mg PO Q6H #30 tab 12/11/19 [Rx] Past Medical History - Past Health History Medical/Surgical History: Denies Medical/Surgical History HEENT History: Reports: Cataract, Impaired Vision, Other (See Below) Other HEENT History: Lu's esophagus Cardiovascular History: Reports: Afib, Angina, Automatic Implantable Cardioverter Defibrillators, High Cholesterol, Hypertension, Pacemaker, SOB on Exertion Other Cardiovascular History: Ablation in July,, angiogram 07/25/2017 Respiratory History: Reports: PE, Pneumonia, Recurrent, Sleep Apnea, SOB Other Respiratory History: wears a cpap at night Gastrointestinal History: Reports: Bowel Obstruction, Chronic Constipation, GERD, Other (See Below) Other Gastrointestinal History: duodenal ulcer Genitourinary History: Reports: Renal Calculus, Other (See Below) Other Genitourinary History: prostate stent placed 10/01/2016 Musculoskeletal History: Reports: Back Pain, Chronic Other Musculoskeletal History: Neck pain causing migraines Neurological History: Reports: Migraines Other Neuro History: Patient had vertebrae in neck fused. Resolved some or most of headaches. Psychiatric History: Reports: Depression, Emotional Problems Endocrine/Metabolic History: Reports: Diabetes, Type II, Obesity/BMI 30+ Other Endocrine/Metabolic History: pt has insulin pump Hematologic History: Reports: B12 Deficiency, Blood Transfusion(s) Oncologic (Cancer) History: Reports: None Dermatologic History: Reports: Other (See Below) Other Dermatologic History: Had pre-cancer lesion removed to R arm. Has lesion to L wrist. - Infectious Disease History Infectious Disease History: Reports: Chicken Pox, Measles, Rubella - Past Surgical History HEENT Surgical History: Reports: Tonsillectomy Cardiovascular Surgical History: Reports: Cardiac Ablation, Pacer Respiratory Surgical History: Reports: None GI Surgical History: Reports: Colonoscopy, Hernia, Inguinal, Other (See Below) Male Surgical History: Reports: Kidney Stone Extraction, Lithotripsy (ESWL) Endocrine Surgical History: Reports: None Neurological Surgical History: Reports: C-Spine, Spinal Fusion Musculoskeletal Surgical History: Reports: Knee Replacement Social & Family History - Family History Family Medical History: Noncontributory HEENT: Reports: Cataract Cardiac: Reports: [place] Respiratory: Reports: COPD GI: Reports: None : Reports: None Endocrine/Metabolic: Reports: Diabetes, type II Oncologic: Reports: Brain, Colon, Lung - Tobacco Use Smoking Status *Q: Never Smoker Second Hand Smoke Exposure: No - Caffeine Use Caffeine Use: Reports: None Other Caffeine Use: diet coke - 3-4 cans /day - Recreational Drug Use Recreational Drug Use: No - Living Situation & Occupation Living situation: Reports: Occupation: Unemployed ED ROS GENERAL - Review of Systems Review Of Systems: See Below Constitutional: Reports: No Symptoms HEENT: Reports: No Symptoms Respiratory: Reports: Shortness of Breath Cardiovascular: Reports: Chest Pain, Lightheadedness Endocrine: Reports: No Symptoms GI/Abdominal: Reports: No Symptoms : Reports: No Symptoms Musculoskeletal: Reports: No Symptoms Skin: Reports: No Symptoms Neurological: Reports: No Symptoms ED EXAM, GENERAL - Physical Exam Exam: See Below Exam Limited By: No Limitations General Appearance: Alert, No Apparent Distress Head: Atraumatic, Normocephalic Neck: Normal Inspection Respiratory/Chest: No Respiratory Distress, Lungs Clear, Normal Breath Sounds, No Accessory Muscle Use, Chest Non-Tender Cardiovascular: Normal Peripheral Pulses, Regular Rate, Rhythm, No Edema, No Gallop, No JVD, No Murmur, No Rub GI/Abdominal: Normal Bowel Sounds, Soft, Non-Tender, No Distention Extremities: Normal Inspection, Non-Tender, No Pedal Edema, Normal Capillary Refill Neurological: Alert, Oriented, CN II-XII Intact, No Motor/Sensory Deficits Skin Exam: Warm, Dry, Intact, Normal Color, No Rash EKG INTERPRETATION EKG Date: 03/03/20 Time: 11:14 Rhythm: NSR Rate (Beats/Min): 83 [place]: Normal P-Wave: Present QRS: RBBB ST-T: Normal QT: Normal Comparison: No Change Course - Vital Signs Text/Narrative:: Patient given morphine 4 mg IV and states pain increased to 6/10. toradol 30 mg IV given and pain improved to 4/10. All labs unremarkable. Repeat troponin. Unchanged EKG. All labs, EKG, and imaging normal and unchanged from previous. Discussed with product safety expert from [place] (Dr. Ramos). Patient with angiogram in 2018 that was unremarkable. Suggests that patient is safe to discharge home and feels this isn't cardiac in nature. Seems to be more chronic pleuritic chest pain. Will make follow up appointment with Dr. Dumas and out-patient stress test. Informed patient and he is agreeable to this plan. Last Recorded V/S: Last Vital Signs Temp 36.9 C 03/03/20 11:14 Pulse 73 03/03/20 14:45 Resp 15 03/03/20 14:45 BP 116/56 L 03/03/20 14:45 Pulse Ox 97 03/03/20 14:45 - Orders/Labs/Meds Orders: Active Orders 24 hr Category Date Time Status EKG Documentation Completion [RC] ASDIRECTED Care 03/03/20 11:47 Active Chest 1V Frontal [CR] Stat Exams 03/03/20 11:47 Taken CORONAVIRUS COVID-19 RAPID [MOLEC] Stat Lab 03/03/20 11:49 Ordered EKG 12 Lead [EK] Stat Ther 03/03/20 11:47 Ordered Labs: Laboratory Tests 03/03/20 03/03/20 03/03/20 Range/Units 11:47 11:47 11:48 WBC 9.9 (4.0-11.0) K/uL RBC 4.73 (4.50-6.50) M/uL Hgb 13.6 (13.0-18.0) g/dL Hct 41.4 (40.0-54.0) % MCV 88 (76-96) fL MCH 28.8 (27.0-32.0) pg MCHC 32.9 (31.0-35.0) g/dL RDW 15.0 (11.0-16.0) % Plt Count 175 (150-400) K/uL MPV 11.3 H (6.0-10.0) fL Neut % (Auto) 65.6 (45.0-70.0) % Lymph % (Auto) 24.0 (20.0-40.0) % [place] % (Auto) 9.0 (3.0-10.0) % Eos % (Auto) 1.0 (1.0-5.0) % Baso % (Auto) 0.4 (0.0-0.5) % Neut # (Auto) 6.48 (2.00-7.50) K/uL Lymph # (Auto) 2.37 (1.50-4.00) K/uL [place] # (Auto) 0.89 H (0.20-0.80) K/uL Eos # (Auto) 0.10 (0.04-0.40) K/uL Baso # (Auto) 0.04 (0.02-0.10) K/uL PT 23.0 H (9.0-11.5) sec INR 2.3 D (1.0-3.5) Sodium 139 (136-145) mmol/L Potassium 3.9 (3.5-5.1) mmol/L Chloride 104 (98-107) mmol/L Carbon Dioxide 25.0 (21.0-32.0) mmol/L Anion Gap 13.9 (5.0-15.0) mmol/L BUN 23 (8-26) mg/dL Creatinine 1.25 (0.70-1.30) mg/dL Est Cr Clr Drug Dosing 58.63 mL/min Estimated GFR (MDRD) 57 L (>60) MLS/MIN BUN/Creatinine Ratio 18.4 (6-25) Glucose 233 H (74-100) mg/dL Calcium 8.1 L (8.5-10.1) mg/dL Total Bilirubin 0.8 D (0.0-1.0) mg/dL AST 27 (15-37) U/L ALT 36 (12-78) U/L Alkaline Phosphatase 104 (46-116) U/L Troponin I < 0.017 (0.000-0.060) ng/mL B-Natriuretic Peptide 58 D (0-125) pg/mL Total Protein 6.8 (6.4-8.2) g/dL Albumin 3.1 L (3.4-5.0) g/dL Globulin 3.7 (2.2-4.2) g/dL Albumin/Globulin Ratio 0.8 (0.8-2.0) 03/03/20 Range/Units 14:15 WBC (4.0-11.0) K/uL RBC (4.50-6.50) M/uL Hgb (13.0-18.0) g/dL Hct (40.0-54.0) % MCV (76-96) fL MCH (27.0-32.0) pg MCHC (31.0-35.0) g/dL RDW (11.0-16.0) % Plt Count (150-400) K/uL MPV (6.0-10.0) fL Neut % (Auto) (45.0-70.0) % Lymph % (Auto) (20.0-40.0) % [place] % (Auto) (3.0-10.0) % Eos % (Auto) (1.0-5.0) % Baso % (Auto) (0.0-0.5) % Neut # (Auto) (2.00-7.50) K/uL Lymph # (Auto) (1.50-4.00) K/uL [place] # (Auto) (0.20-0.80) K/uL Eos # (Auto) (0.04-0.40) K/uL Baso # (Auto) (0.02-0.10) K/uL PT (9.0-11.5) sec INR (1.0-3.5) Sodium (136-145) mmol/L Potassium (3.5-5.1) mmol/L Chloride (98-107) mmol/L Carbon Dioxide (21.0-32.0) mmol/L Anion Gap (5.0-15.0) mmol/L BUN (8-26) mg/dL Creatinine (0.70-1.30) mg/dL Est Cr Clr Drug Dosing mL/min Estimated GFR (MDRD) (>60) MLS/MIN BUN/Creatinine Ratio (6-25) Glucose (74-100) mg/dL Calcium (8.5-10.1) mg/dL Total Bilirubin (0.0-1.0) mg/dL AST (15-37) U/L ALT (12-78) U/L Alkaline Phosphatase (46-116) U/L Troponin I < 0.017 (0.000-0.060) ng/mL B-Natriuretic Peptide (0-125) pg/mL Total Protein (6.4-8.2) g/dL Albumin (3.4-5.0) g/dL Globulin (2.2-4.2) g/dL Albumin/Globulin Ratio (0.8-2.0) Meds: Medications Discontinued Medications Generic Name Dose Route Start Last Admin Trade Name Freq PRN Reason Stop Dose Admin Ketorolac Tromethamine 30 mg 03/03/20 12:25 03/03/20 12:29 Toradol IVPUSH 03/03/20 12:26 30 mg ONETIME ONE Administration Morphine Sulfate 4 mg 03/03/20 11:51 03/03/20 11:56 Morphine IVPUSH 03/03/20 11:52 Not Given ONETIME ONE Morphine Sulfate 4 mg 03/03/20 11:51 03/03/20 11:55 Morphine IVPUSH 03/03/20 11:52 4 mg ONETIME ONE Administration Departure - Departure Time of Disposition: 15:11 Disposition: Home, Self-Care 01 Condition: Good Clinical Impression: Pleuritic chest pain - Discharge Information *PRESCRIPTION DRUG MONITORING PROGRAM REVIEWED*: No *COPY OF PRESCRIPTION DRUG MONITORING REPORT IN PATIENT KAVON: No Instructions: Nonspecific Chest Pain, Adult Referrals: PCP,None [Primary Care Provider] - Forms: ED Department Discharge Additional Instructions: Discharge home. Follow up with Dr. Dumas in the clinic. Sepsis Event Note (ED) - Evaluation Sepsis Screening Result: No Definite Risk - Focused Exam Vital Signs: Vital Signs Temp Pulse Resp BP Pulse Ox 03/03/20 14:45 73 15 116/56 L 97 03/03/20 14:34 73 11 L 100/48 L 97 03/03/20 14:22 77 17 123/60 97 03/03/20 13:45 75 15 111/59 L 95 03/03/20 13:38 77 14 114/57 L 97 03/03/20 13:25 76 11 L 141/53 H 97 03/03/20 13:00 77 12 118/56 L 97 03/03/20 12:47 78 13 132/68 97 03/03/20 12:39 78 13 150/67 H 97 03/03/20 12:32 76 16 153/77 H 96 03/03/20 12:04 97 15 147/77 H 97 03/03/20 11:14 36.9 C 80 10 L 145/75 H 96 03/03/20 11:12 36.9 C 80 10 L 145/75 H 96 - My Orders Last 24 Hours: My Active Orders 03/03/20 11:47 EKG Documentation Completion [RC] ASDIRECTED Chest 1V Frontal [CR] Stat EKG 12 Lead [EK] Stat 03/03/20 11:49 CORONAVIRUS COVID-19 RAPID [MOLEC] Stat - Assessment/Plan Last 24 Hours: My Active Orders 03/03/20 11:47 EKG Documentation Completion [RC] ASDIRECTED Chest 1V Frontal [CR] Stat EKG 12 Lead [EK] Stat 03/03/20 11:49 CORONAVIRUS COVID-19 RAPID [MOLEC] Stat
[2020-03-03 14:35] VITALS: PULSE 73
[2020-03-03 14:46] VITALS: BP 116/56
--- NOTE | 2020-03-04 09:01 | CR ---
DATE OF SERVICE: 03/03/20 CLINICAL DATA: chest pain AP CHEST: Comparison is made to a prior exam dated 01/25/20. The heart size is within normal limits. The cardiac pacer and pacer wires remain unchanged in position from the prior study. The lungs are clear. No pneumothorax. No pleural effusions. No evidence of acute intrathoracic disease. [id number] [facility]
== END 2020-03-03 15:20 | disposition home or self-care (01) ==
LOC: LB.ED 10:51
DX: R07.81 Pleurodynia (principal); I48.91 Unspecified atrial fibrillation; K21.9 Gastro-esophageal reflux disease without esophagitis; Z79.82 Long term (current) use of aspirin; Z79.4 Long term (current) use of insulin; Z79.01 Long term (current) use of anticoagulants; Z79.899 Other long term (current) drug therapy; Z91.018 Allergy to other foods; Z88.8 Allergy status to other drugs, medicaments and biological substances; Z86.711 Personal history of pulmonary embolism
CPT/HCPCS: 36415; 71045; 80053; 83880; 84484; 85025; 85610; 93005; 96374; 96375; 99285; J1885; J2270; 99284; A0425; A0429

== ENCOUNTER 2020-03-04 14:10 | Emergency (ER) | payer MEDICARE ==
[~2020-03-04 14:10] MED LIST: Sodium Chloride 0.9% 1,000 ML IV SCH
[2020-03-04] MEDS ORDERED: Nitroglycerin 0.4 MG Tab.SL SL PRN (14:38)
[2020-03-04] MEDS ORDERED: Nitroglycerin/D5W 25 MG/250 ML BOTTLE IV SCH (14:45)
--- NOTE | 2020-03-04 15:04 | EDM.PDOC ---
ED HPI GENERAL MEDICAL PROBLEM - General Chief Complaint: Chest Pain Stated Complaint: CHEST PAIN, SOB Time Seen by Provider: 03/04/20 14:30 Source of Information: Reports: Patient History Limitations: Reports: No Limitations - History of Present Illness INITIAL COMMENTS - FREE TEXT/NARRATIVE: Patient is a 74 y/o male with extensive cardiovascular history (please see note from yesterday), who presents with ongoing left chest pain x 2 days that has progressively worsened from 6/10 to 10/10 pain and radiates to left neck. He continues to be SOB, but denies any other symptoms. Normal bowel movement this AM. Patient took his aspirin today, but didn't take any nitro. - Related Data Allergies Allergy/AdvReac Type Severity Reaction Status Date / Time caffeine Allergy Dizziness Verified 03/03/20 11:36 coffee (Coffea arabica) Allergy Headache Verified 03/03/20 11:36 nifedipine [From Procardia] AdvReac Mild Constipatio Verified 03/03/20 11:36 n Home Meds: Home Meds Omeprazole 20 mg PO DAILY 05/26/15 [History] atorvaSTATin [Lipitor] 80 mg PO BEDTIME 05/26/15 [History] Metoprolol Succinate [Toprol XL] 25 mg PO DAILY 05/25/16 [History] Furosemide 20 mg PO QAM 03/29/17 [History] Metoclopramide HCl [Reglan] 10 mg PO QID 03/29/17 [History] Tamsulosin HCl 0.4 mg PO DAILY 03/29/17 [History] Insulin Pump Syringe, 3 mL [Minimed [place]] 1 each ASDIRECTED 04/04/17 [History] Isosorbide Mononitrate [Isosorbide Mononitrate ER] 120 mg PO DAILY 09/09/17 [History] Aspirin [Halfprin] 81 mg PO DAILY 12/03/19 [History] Gabapentin [Neurontin] 300 mg PO BID 12/03/19 [History] Losartan [Cozaar] 50 mg PO DAILY 12/03/19 [History] Acetaminophen 1,000 mg PO Q6H PRN 12/08/19 [History] Cyclobenzaprine [Flexeril] 10 mg PO TID PRN 12/08/19 [History] Fluticasone/Umeclidin/Vilanter [Trelegy Ellipta 100-62.5-25] 1 each IH DAILY 12/08/19 [History] Melatonin 3 mg PO BEDTIME 12/08/19 [History] Psyllium with Sucrose [Metamucil] 1 each PO DAILY 12/08/19 [History] Warfarin [Coumadin] 1 mg PO DAILY 12/08/19 [History] Non-Formulary Medication [NF Drug] 1 each PO BEDTIME each 12/11/19 [Rx] traMADol [Ultram] 50 mg PO Q6H #30 tab 12/11/19 [Rx] Past Medical History - Past Health History Medical/Surgical History: Denies Medical/Surgical History HEENT History: Reports: Cataract, Impaired Vision, Other (See Below) Other HEENT History: Lu's esophagus Cardiovascular History: Reports: Afib, Angina, Automatic Implantable Cardioverter Defibrillators, High Cholesterol, Hypertension, Pacemaker, SOB on Exertion Other Cardiovascular History: Ablation in July,, angiogram 07/25/2017 Respiratory History: Reports: PE, Pneumonia, Recurrent, Sleep Apnea, SOB Other Respiratory History: wears a cpap at night Gastrointestinal History: Reports: Bowel Obstruction, Chronic Constipation, GERD, Other (See Below) Other Gastrointestinal History: duodenal ulcer Genitourinary History: Reports: Renal Calculus, Other (See Below) Other Genitourinary History: prostate stent placed 10/01/2016 Musculoskeletal History: Reports: Back Pain, Chronic Other Musculoskeletal History: Neck pain causing migraines Neurological History: Reports: Migraines Other Neuro History: Patient had vertebrae in neck fused. Resolved some or most of headaches. Psychiatric History: Reports: Depression, Emotional Problems Endocrine/Metabolic History: Reports: Diabetes, Type II, Obesity/BMI 30+ Other Endocrine/Metabolic History: pt has insulin pump Hematologic History: Reports: B12 Deficiency, Blood Transfusion(s) Oncologic (Cancer) History: Reports: None Dermatologic History: Reports: Other (See Below) Other Dermatologic History: Had pre-cancer lesion removed to R arm. Has lesion to L wrist. - Infectious Disease History Infectious Disease History: Reports: Chicken Pox, Measles, Rubella - Past Surgical History HEENT Surgical History: Reports: Tonsillectomy Cardiovascular Surgical History: Reports: Cardiac Ablation, Pacer Respiratory Surgical History: Reports: None GI Surgical History: Reports: Colonoscopy, Hernia, Inguinal, Other (See Below) Male Surgical History: Reports: Kidney Stone Extraction, Lithotripsy (ESWL) Endocrine Surgical History: Reports: None Neurological Surgical History: Reports: C-Spine, Spinal Fusion Musculoskeletal Surgical History: Reports: Knee Replacement Social & Family History - Family History Family Medical History: Noncontributory HEENT: Reports: Cataract Cardiac: Reports: [place] Respiratory: Reports: COPD GI: Reports: None : Reports: None Endocrine/Metabolic: Reports: Diabetes, type II Oncologic: Reports: Brain, Colon, Lung - Caffeine Use Caffeine Use: Reports: None Other Caffeine Use: diet coke - 3-4 cans /day - Living Situation & Occupation Living situation: Reports: Occupation: Unemployed ED ROS GENERAL - Review of Systems Review Of Systems: See Below Constitutional: Reports: No Symptoms HEENT: Reports: No Symptoms Respiratory: Reports: Shortness of Breath Cardiovascular: Reports: Chest Pain Endocrine: Reports: No Symptoms GI/Abdominal: Reports: No Symptoms : Reports: No Symptoms Musculoskeletal: Reports: No Symptoms Skin: Reports: No Symptoms Neurological: Reports: No Symptoms ED EXAM, GENERAL - Physical Exam Exam: See Below Exam Limited By: No Limitations General Appearance: Alert, No Apparent Distress, Obese Nose: Normal Inspection Throat/Mouth: No Airway Compromise Head: Atraumatic, Normocephalic Neck: Normal Inspection, Supple, Non-Tender, Full Range of Motion Respiratory/Chest: No Respiratory Distress, Lungs Clear, Normal Breath Sounds, No Accessory Muscle Use, Chest Non-Tender Cardiovascular: Normal Peripheral Pulses, Regular Rate, Rhythm, No Edema, No Murmur GI/Abdominal: Normal Bowel Sounds, Soft, Non-Tender, Distended Neurological: Alert, Oriented, CN II-XII Intact, No Motor/Sensory Deficits Psychiatric: Normal Affect Skin Exam: Warm, Dry, Intact, Normal Color, No Rash EKG INTERPRETATION EKG Date: 03/04/20 Time: 14:25 Rhythm: NSR Rate (Beats/Min): 81 [place]: Normal P-Wave: Present QRS: RBBB ST-T: Normal QT: Normal Comparison: No Change Course - Vital Signs Text/Narrative:: Patient given nitro drip with improvement of pain 10/10 to 6/10. Patient unable to fit into CT scan for further eval of his chest pain and distended abd. All labs unremarkable and EKG unchanged. Will transfer to [facility] (Dr. Ramos) for further evaluation and treatment. Ambulance unable to transport due to nitro drip. Flight crew arranged for transport. Last Recorded V/S: Last Vital Signs Temp Pulse Resp BP 141/83 H 03/04/20 14:40 Pulse Ox - Orders/Labs/Meds Orders: Active Orders 24 hr Category Date Time Status EKG Documentation Completion [RC] ASDIRECTED Care 03/04/20 14:31 Active Chest 1V Frontal [CR] Stat Exams 03/04/20 14:30 Taken Nitroglycerin [Nitrostat] Med 03/04/20 14:38 Active 0.4 mg SL Q5M PRN Nitroglycerin/D5W [Nitroglycerin 25 MG/D5W 250 ML] Med 03/04/20 14:45 Active 25 mg in 250 ml IV TITRATE Medication Orders Nitroglycerin/Dextrose (Nitroglycerin 25 Mg/D5w 250 Ml) 25 mg in 250 mls @ 6 mls/hr IV TITRATE ZEV; Protocol Last Admin: 03/04/20 14:53 Dose: 10 mcg/min, 6 mls/hr Documented by: CARLTON Nitroglycerin (Nitrostat) 0.4 mg SL Q5M PRN PRN Reason: Chest Pain Last Admin: 03/04/20 14:40 Dose: 0.4 mg Documented by: CARLTON Labs: Laboratory Tests 03/04/20 03/04/20 03/04/20 Range/Units 14:40 14:40 14:40 WBC 8.1 (4.0-11.0) K/uL RBC 4.63 (4.50-6.50) M/uL Hgb 13.4 (13.0-18.0) g/dL Hct 40.7 (40.0-54.0) % MCV 88 (76-96) fL MCH 28.9 (27.0-32.0) pg MCHC 32.9 (31.0-35.0) g/dL RDW 14.9 (11.0-16.0) % Plt Count 156 (150-400) K/uL MPV 11.0 H (6.0-10.0) fL Neut % (Auto) 57.6 (45.0-70.0) % Lymph % (Auto) 32.1 (20.0-40.0) % Kings % (Auto) 8.7 (3.0-10.0) % Eos % (Auto) 1.1 (1.0-5.0) % Baso % (Auto) 0.5 (0.0-0.5) % Neut # (Auto) 4.68 (2.00-7.50) K/uL Lymph # (Auto) 2.61 (1.50-4.00) K/uL Kings # (Auto) 0.71 (0.20-0.80) K/uL Eos # (Auto) 0.09 (0.04-0.40) K/uL Baso # (Auto) 0.04 (0.02-0.10) K/uL D-Dimer, Quantitative < 100 (0-400) ng/mL Sodium 140 (136-145) mmol/L Potassium 4.0 (3.5-5.1) mmol/L Chloride 105 (98-107) mmol/L Carbon Dioxide 25.5 (21.0-32.0) mmol/L Anion Gap 13.5 (5.0-15.0) mmol/L BUN 28 H D (8-26) mg/dL Creatinine 1.44 H (0.70-1.30) mg/dL Est Cr Clr Drug Dosing TNP Estimated GFR (MDRD) 48 L (>60) MLS/MIN BUN/Creatinine Ratio 19.4 (6-25) Glucose 259 H (74-100) mg/dL Calcium 8.1 L (8.5-10.1) mg/dL Total Bilirubin 0.6 (0.0-1.0) mg/dL AST 20 (15-37) U/L ALT 36 (12-78) U/L Alkaline Phosphatase 108 (46-116) U/L Troponin I < 0.017 (0.000-0.060) ng/mL B-Natriuretic Peptide 89 D (0-125) pg/mL Total Protein 6.6 (6.4-8.2) g/dL Albumin 3.2 L (3.4-5.0) g/dL Globulin 3.4 (2.2-4.2) g/dL Albumin/Globulin Ratio 0.9 (0.8-2.0) Amylase (25-115) U/L Lipase (73-393) U/L SARS CoV-2 RNA Rapid ASHLEY 03/04/20 03/04/20 Range/Units 14:45 15:30 WBC (4.0-11.0) K/uL RBC (4.50-6.50) M/uL Hgb (13.0-18.0) g/dL Hct (40.0-54.0) % MCV (76-96) fL MCH (27.0-32.0) pg MCHC (31.0-35.0) g/dL RDW (11.0-16.0) % Plt Count (150-400) K/uL MPV (6.0-10.0) fL Neut % (Auto) (45.0-70.0) % Lymph % (Auto) (20.0-40.0) % Kings % (Auto) (3.0-10.0) % Eos % (Auto) (1.0-5.0) % Baso % (Auto) (0.0-0.5) % Neut # (Auto) (2.00-7.50) K/uL Lymph # (Auto) (1.50-4.00) K/uL Kings # (Auto) (0.20-0.80) K/uL Eos # (Auto) (0.04-0.40) K/uL Baso # (Auto) (0.02-0.10) K/uL D-Dimer, Quantitative (0-400) ng/mL Sodium (136-145) mmol/L Potassium (3.5-5.1) mmol/L Chloride (98-107) mmol/L Carbon Dioxide (21.0-32.0) mmol/L Anion Gap (5.0-15.0) mmol/L BUN (8-26) mg/dL Creatinine (0.70-1.30) mg/dL Est Cr Clr Drug Dosing Estimated GFR (MDRD) (>60) MLS/MIN BUN/Creatinine Ratio (6-25) Glucose (74-100) mg/dL Calcium (8.5-10.1) mg/dL Total Bilirubin (0.0-1.0) mg/dL AST (15-37) U/L ALT (12-78) U/L Alkaline Phosphatase (46-116) U/L Troponin I (0.000-0.060) ng/mL B-Natriuretic Peptide (0-125) pg/mL Total Protein (6.4-8.2) g/dL Albumin (3.4-5.0) g/dL Globulin (2.2-4.2) g/dL Albumin/Globulin Ratio (0.8-2.0) Amylase 30 D (25-115) U/L Lipase 135 (73-393) U/L SARS CoV-2 RNA Rapid ASHLEY Negative Meds: Medications Generic Name Dose Route Start Last Admin Trade Name Freq PRN Reason Stop Dose Admin Nitroglycerin/Dextrose 25 mg in 250 mls @ 6 mls/hr 03/04/20 14:45 03/04/20 14:53 Nitroglycerin 25 Mg/D5w 250 Ml IV 10 mcg/min TITRATE ZEV 6 mls/hr Administration Protocol 10 MCG/MIN Nitroglycerin 0.4 mg 03/04/20 14:38 03/04/20 14:40 Nitrostat SL 0.4 mg Q5M PRN Administration Chest Pain Departure - Departure Time of Disposition: 16:25 Disposition: DC/Tfer to Other Reason for Transfer *Q: Other (higher level of care) Condition: Good Clinical Impression: Atypical chest pain Referrals: PCP,None [Primary Care Provider] - Sepsis Event Note (ED) - Focused Exam Vital Signs: Vital Signs BP 03/04/20 14:40 141/83 H - My Orders Last 24 Hours: My Active Orders 03/04/20 14:30 Chest 1V Frontal [CR] Stat 03/04/20 14:31 EKG Documentation Completion [RC] ASDIRECTED 03/04/20 14:38 Nitroglycerin [Nitrostat] 0.4 mg SL Q5M PRN 03/04/20 14:45 Nitroglycerin/D5W [Nitroglycerin 25 MG/D5W 250 ML] 25 mg in 250 ml IV TITRATE - Assessment/Plan Last 24 Hours: My Active Orders 03/04/20 14:30 Chest 1V Frontal [CR] Stat 03/04/20 14:31 EKG Documentation Completion [RC] ASDIRECTED 03/04/20 14:38 Nitroglycerin [Nitrostat] 0.4 mg SL Q5M PRN 03/04/20 14:45 Nitroglycerin/D5W [Nitroglycerin 25 MG/D5W 250 ML] 25 mg in 250 ml IV TITRATE
--- NOTE | 2020-03-04 17:17 | CR ---
DATE OF SERVICE: 03/04/20 CLINICAL DATA: chest pain AP CHEST: Comparison is made to a prior exam dated 03/03/20. The heart and lungs are stable. No evidence of acute intrathoracic disease. [id number] [facility]
[2020-03-04 20:02] VITALS: BP 161/76; PULSE 84
== END 2020-03-04 17:05 | disposition other institution (70) ==
LOC: LB.ED 14:10
DX: R07.89 Other chest pain (principal); I48.91 Unspecified atrial fibrillation; K21.9 Gastro-esophageal reflux disease without esophagitis; E11.9 Type 2 diabetes mellitus without complications; I10 Essential (primary) hypertension; E78.00 Pure hypercholesterolemia, unspecified; I45.10 Unspecified right bundle-branch block; E66.9 Obesity, unspecified; Z88.8 Allergy status to other drugs, medicaments and biological substances; Z91.018 Allergy to other foods; Z79.899 Other long term (current) drug therapy; Z79.4 Long term (current) use of insulin; Z79.82 Long term (current) use of aspirin; Z79.01 Long term (current) use of anticoagulants; Z20.828 Contact with and (suspected) exposure to other viral communicable diseases; Z95.0 Presence of cardiac pacemaker
CPT/HCPCS: 36415; 71045; 80053; 82150; 83690; 83880; 84484; 85025; 85379; 93005; 96361; 96365; 96366; 99285; J3490; J7030; U0002; A0425; A0429

== ENCOUNTER 2020-04-07 09:30 | Emergency (ER) | payer MEDICARE ==
--- NOTE | 2020-04-07 11:05 | EDM.PDOC ---
ED HPI GENERAL MEDICAL PROBLEM - General Chief Complaint: General Stated Complaint: FALL Time Seen by Provider: 04/07/20 10:30 Source of Information: Reports: Patient History Limitations: Reports: No Limitations - History of Present Illness INITIAL COMMENTS - FREE TEXT/NARRATIVE: patient fell last night, states he "passed out" and fell onto gravel injuring his right ankle (previous fall and fractures of right ankle in December), hit his head. Patient is on blood thinners for clotting disorder. Denies any CARDONA, confusion, fevers, cough, nausea, CP, SOB, dark or bloody stools. He states that he has had several episodes of "passing out" shortly after standing, and is in the process of seeing secondary social studies teacher for work up for syncopal episodes. Onset: Today Location: Reports: Lower Extremity, Right Severity: Moderate Improves with: Reports: None Worsens with: Reports: Movement Associated Symptoms: Reports: No Other Symptoms - Related Data Allergies Allergy/AdvReac Type Severity Reaction Status Date / Time caffeine Allergy Dizziness Verified 03/03/20 11:36 coffee (Coffea arabica) Allergy Headache Verified 03/03/20 11:36 nifedipine [From Procardia] AdvReac Mild Constipatio Verified 03/03/20 11:36 n Home Meds: Home Meds Omeprazole 20 mg PO DAILY 05/26/15 [History] atorvaSTATin [Lipitor] 80 mg PO BEDTIME 05/26/15 [History] Metoprolol Succinate [Toprol XL] 25 mg PO DAILY 05/25/16 [History] Furosemide 20 mg PO QAM 03/29/17 [History] Metoclopramide HCl [Reglan] 10 mg PO QID 03/29/17 [History] Tamsulosin HCl 0.4 mg PO DAILY 03/29/17 [History] Insulin Pump Syringe, 3 mL [Minimed [place]] 1 each MC ASDIRECTED 04/04/17 [History] Isosorbide Mononitrate [Isosorbide Mononitrate ER] 120 mg PO DAILY 09/09/17 [History] Aspirin [Halfprin] 81 mg PO DAILY 12/03/19 [History] Gabapentin [Neurontin] 300 mg PO BID 12/03/19 [History] Losartan [Cozaar] 50 mg PO DAILY 12/03/19 [History] Acetaminophen 1,000 mg PO Q6H PRN 12/08/19 [History] Cyclobenzaprine [Flexeril] 10 mg PO TID PRN 12/08/19 [History] Fluticasone/Umeclidin/Vilanter [Trelegy Ellipta 100-62.5-25] 1 each IH DAILY 12/08/19 [History] Melatonin 3 mg PO BEDTIME 12/08/19 [History] Psyllium with Sucrose [Metamucil] 1 each PO DAILY 12/08/19 [History] Warfarin [Coumadin] 1 mg PO DAILY 12/08/19 [History] Non-Formulary Medication [NF Drug] 1 each PO BEDTIME each 12/11/19 [Rx] traMADol [Ultram] 50 mg PO Q6H #30 tab 12/11/19 [Rx] Past Medical History - Past Health History Medical/Surgical History: Denies Medical/Surgical History HEENT History: Reports: Cataract, Impaired Vision, Other (See Below) Other HEENT History: Lu's esophagus Cardiovascular History: Reports: Afib, Angina, Automatic Implantable Cardioverter Defibrillators, High Cholesterol, Hypertension, Pacemaker, SOB on Exertion Other Cardiovascular History: Ablation in July,, angiogram 07/25/2017 Respiratory History: Reports: PE, Pneumonia, Recurrent, Sleep Apnea, SOB Other Respiratory History: wears a cpap at night Gastrointestinal History: Reports: Bowel Obstruction, Chronic Constipation, GERD, Other (See Below) Other Gastrointestinal History: duodenal ulcer Genitourinary History: Reports: Renal Calculus, Other (See Below) Other Genitourinary History: prostate stent placed 10/01/2016 Musculoskeletal History: Reports: Back Pain, Chronic Other Musculoskeletal History: Neck pain causing migraines Neurological History: Reports: Migraines Other Neuro History: Patient had vertebrae in neck fused. Resolved some or most of headaches. Psychiatric History: Reports: Depression, Emotional Problems Endocrine/Metabolic History: Reports: Diabetes, Type II, Obesity/BMI 30+ Other Endocrine/Metabolic History: pt has insulin pump Hematologic History: Reports: B12 Deficiency, Blood Transfusion(s) Oncologic (Cancer) History: Reports: None Dermatologic History: Reports: Other (See Below) Other Dermatologic History: Had pre-cancer lesion removed to R arm. Has lesion to L wrist. - Infectious Disease History Infectious Disease History: Reports: Chicken Pox, Measles, Rubella - Past Surgical History HEENT Surgical History: Reports: Tonsillectomy Cardiovascular Surgical History: Reports: Cardiac Ablation, Pacer Respiratory Surgical History: Reports: None GI Surgical History: Reports: Colonoscopy, Hernia, Inguinal, Other (See Below) Male Surgical History: Reports: Kidney Stone Extraction, Lithotripsy (ESWL) Endocrine Surgical History: Reports: None Neurological Surgical History: Reports: C-Spine, Spinal Fusion Musculoskeletal Surgical History: Reports: Knee Replacement Social & Family History - Family History Family Medical History: Noncontributory HEENT: Reports: Cataract Cardiac: Reports: [place] Respiratory: Reports: COPD GI: Reports: None : Reports: None Endocrine/Metabolic: Reports: Diabetes, type II Oncologic: Reports: Brain, Colon, Lung - Caffeine Use Caffeine Use: Reports: None Other Caffeine Use: diet coke - 3-4 cans /day - Living Situation & Occupation Living situation: Reports: Occupation: Unemployed ED ROS GENERAL - Review of Systems Review Of Systems: See Below Constitutional: Reports: No Symptoms HEENT: Reports: No Symptoms Respiratory: Reports: No Symptoms Cardiovascular: Reports: Syncope Endocrine: Reports: No Symptoms GI/Abdominal: Reports: No Symptoms : Reports: No Symptoms Musculoskeletal: Reports: Leg Pain Skin: Reports: Wound (abrasion to right knee) Neurological: Reports: Pre-Existing Deficit, Difficulty Walking (patient ambulated with a cane and states lately he has had to use a wheelchair) Psychiatric: Reports: No Symptoms Hematologic/Lymphatic: Reports: Easy Bleeding ED EXAM, GENERAL - Physical Exam Exam: See Below Exam Limited By: No Limitations General Appearance: Alert, No Apparent Distress, Obese Eye Exam: Bilateral Eye: Normal Inspection Ears: Normal External Exam, Normal TMs Ear Exam: Right Ear: Foreign Body (removed rubber part of hearing aid without issues, TM normal) Nose: Normal Inspection Throat/Mouth: Normal Inspection, Normal Voice, No Airway Compromise Head: Other (no focal pain, but hit his head in the fall, not clear where) Neck: Normal Inspection, Non-Tender, Full Range of Motion Respiratory/Chest: No Respiratory Distress, Lungs Clear, Normal Breath Sounds Cardiovascular: Normal Peripheral Pulses, Regular Rate, Rhythm, No JVD Peripheral Pulses: 3+: Dorsalis Pedis (L), Dorsalis Pedis (R) GI/Abdominal: Non-Tender Rectal (Males) Exam: No: Black Stool, Bloody Stool Back Exam: Normal Inspection, Full Range of Motion Extremities: Pedal Edema, Leg Pain Neurological: Alert, Oriented, Normal Cognition, No Motor/Sensory Deficits Psychiatric: Normal Affect, Normal Mood Skin Exam: Warm, Dry Course - Orders/Labs/Meds Orders: Active Orders 24 hr Category Date Time Status EKG Documentation Completion [RC] ASDIRECTED Care 04/07/20 11:09 Active Ankle Min 3V Rt [CR] Stat Exams 04/07/20 09:34 Taken Head wo Cont [CT] Stat Exams 04/07/20 10:54 Taken CBC WITH AUTO DIFF [HEME] Stat Lab 04/07/20 11:24 Ordered COMPREHENSIVE METABOLIC PN,CMP [CHEM] Stat Lab 04/07/20 11:24 Ordered INR,PT,PROTHROMBIN TIME [COAG] Stat Lab 04/07/20 11:36 Received EKG 12 Lead [EK] Routine Ther 04/07/20 11:09 Ordered Departure - Departure Time of Disposition: 12:13 Disposition: Home, Self-Care 01 Condition: Good Clinical Impression: Ankle fracture, right Qualifiers: Encounter type: initial encounter Fracture type: closed Qualified Code(s): S82.891A - Other fracture of right lower leg, initial encounter for closed fracture Syncope Qualifiers: Syncope type: unspecified Qualified Code(s): R55 - Syncope and collapse - Discharge Information *PRESCRIPTION DRUG MONITORING PROGRAM REVIEWED*: Not Applicable *COPY OF PRESCRIPTION DRUG MONITORING REPORT IN PATIENT KAVON: Not Applicable Instructions: Nondisplaced Fibular Ankle Fracture Treated With Immobilization, Adult, Ankle Fracture, [id number] Referrals: PCP,None [Primary Care Provider] - Forms: ED Department Discharge Additional Instructions: Call Dr. Dumas's office today and set a follow up appointment for next week. Keep the brace on when bearing weight. Ice, elevate right ankle. Return to ED for any increased or new concerning symptoms. Get up very slowly from sitting position as we discussed. - My Orders Last 24 Hours: My Active Orders 04/07/20 09:34 Ankle Min 3V Rt [CR] Stat 04/07/20 10:54 Head wo Cont [CT] Stat 04/07/20 11:09 EKG Documentation Completion [RC] ASDIRECTED EKG 12 Lead [EK] Routine 04/07/20 11:24 CBC WITH AUTO DIFF [HEME] Stat COMPREHENSIVE METABOLIC PN,CMP [CHEM] Stat 04/07/20 11:36 INR,PT,PROTHROMBIN TIME [COAG] Stat - Assessment/Plan Last 24 Hours: My Active Orders 04/07/20 09:34 Ankle Min 3V Rt [CR] Stat 04/07/20 10:54 Head wo Cont [CT] Stat 04/07/20 11:09 EKG Documentation Completion [RC] ASDIRECTED EKG 12 Lead [EK] Routine 04/07/20 11:24 CBC WITH AUTO DIFF [HEME] Stat COMPREHENSIVE METABOLIC PN,CMP [CHEM] Stat 04/07/20 11:36 INR,PT,PROTHROMBIN TIME [COAG] Stat Assessment:: Patient has been in the ED several times for syncope and other vague complaints. We discussed that it is imperative to follow up with PMD. Patient verbalizes understanding and will make follow up appointment.
--- NOTE | 2020-04-07 11:46 | CT ---
DATE OF SERVICE: 04/07/2020 CLINICAL DATA: Fall, on blood thinners Unenhanced brain CT: The multislice acquisition through the brain without IV contrast was performed. Comparison is made to a prior exam dated 03 December 2019. There is diffuse atrophy. There are periventricular lucencies bilaterally consistent with small vessels ischemic change. No masses or mass effect. No intracranial hemorrhage. No evidence of acute or subacute infarct. No osseous abnormalities. No significant changes from the prior study. Impression: No acute intracranial abnormalities. MTDD
[2020-04-07 12:04] VITALS: BP 157/69; PULSE 82
[2020-04-07] MEDS ORDERED: Acetaminophen/HYDROcodone 325-5 MG Tab PO ONE (12:12)
[2020-04-07] MEDS ORDERED: Acetaminophen/HYDROcodone 325-10 MG Tab ONE (12:28)
[2020-04-07] MEDS ORDERED: Acetaminophen/HYDROcodone 325-5 MG Tab ONE (12:30)
--- NOTE | 2020-04-08 08:22 | CR ---
Date of Service: 04/07/20 Clinical Data: Fall RIGHT ANKLE: Comparison is made to a prior exam dated 02/29/20. There is soft tissue swelling over the lateral malleolus. There are corticated osseous densities adjacent to the tips of the medial and lateral malleoli, unchanged from the prior exam, consistent with prior bony avulsions or accessory ossification center avulsions, or avulsion. No acute fracture or dislocation. No focal lytic or blastic bone lesions. There are plantar and posterior calcaneal spurs. MTDD
== END 2020-04-07 12:30 | disposition home or self-care (01) ==
LOC: LB.ED 09:30
DX: S82.891A Other fracture of right lower leg, initial encounter for closed fracture (principal); R55 Syncope and collapse; I48.91 Unspecified atrial fibrillation; E11.9 Type 2 diabetes mellitus without complications; E78.00 Pure hypercholesterolemia, unspecified; I10 Essential (primary) hypertension; K21.9 Gastro-esophageal reflux disease without esophagitis; F32.9 Major depressive disorder, single episode, unspecified; E66.9 Obesity, unspecified; Z68.43 Body mass index [BMI] 50.0-59.9, adult; Z86.711 Personal history of pulmonary embolism; Z91.018 Allergy to other foods; Z88.8 Allergy status to other drugs, medicaments and biological substances; Z79.82 Long term (current) use of aspirin; Z79.01 Long term (current) use of anticoagulants; Z79.899 Other long term (current) drug therapy; Z79.4 Long term (current) use of insulin; W19.XXXA Unspecified fall, initial encounter
CPT/HCPCS: 36415; 70450; 73610-RT; 80053; 85025; 85610; 93005; 99284-25; A9270-GY

== ENCOUNTER 2020-04-08 19:03 | Inpatient (IN) | payer MEDICARE ==
--- NOTE | 2020-04-08 19:28 | EDM.PDOC ---
ED HPI GENERAL MEDICAL PROBLEM - General Chief Complaint: Lower Extremity Injury/Pain Stated Complaint: PAIN Time Seen by Provider: 04/08/20 19:10 Source of Information: Reports: Patient History Limitations: Reports: No Limitations - History of Present Illness INITIAL COMMENTS - FREE TEXT/NARRATIVE: 74 year old male with complex medical history presents to ED again today for an other fall. Patient was in ED yesterday after a fall, DC home with right ankle fracture. Tonight he states he sat up on the couch and fell off. Denies any injury from dada's fall. 911 was called [facility] [place] [facility] because the patient could not get up. He is growing concerned due to several falls in the past month. Denies any CP, SOB (at baseline, saw java [employer] lead ), abdominal pain, fever, cough, N/V/D, urinary symptoms, or CARDONA. Reports his blood sugars have been slightly elevated and he has been managing them at home with extra insulin boluses. Duration: Getting Worse Quality: Reports: Same as Previous Episode Worsens with: Reports: Movement Associated Symptoms: Reports: Weakness Right Ankle Pain Score (Numeric/FACES): 8 - Related Data Allergies Allergy/AdvReac Type Severity Reaction Status Date / Time caffeine Allergy Dizziness Verified 03/03/20 11:36 coffee (Coffea arabica) Allergy Headache Verified 03/03/20 11:36 nifedipine [From Procardia] AdvReac Mild Constipatio Verified 03/03/20 11:36 n Home Meds: Home Meds Omeprazole 20 mg PO DAILY 05/26/15 [History] atorvaSTATin [Lipitor] 80 mg PO BEDTIME 05/26/15 [History] Metoprolol Succinate [Toprol XL] 25 mg PO DAILY 05/25/16 [History] Furosemide 20 mg PO QAM 03/29/17 [History] Metoclopramide HCl [Reglan] 10 mg PO QID 03/29/17 [History] Tamsulosin HCl 0.4 mg PO DAILY 03/29/17 [History] Insulin Pump Syringe, 3 mL [Minimed [place]] 1 each MC ASDIRECTED 04/04/17 [History] Isosorbide Mononitrate [Isosorbide Mononitrate ER] 120 mg PO DAILY 09/09/17 [History] Aspirin [Halfprin] 81 mg PO DAILY 12/03/19 [History] Gabapentin [Neurontin] 300 mg PO BID 12/03/19 [History] Losartan [Cozaar] 50 mg PO DAILY 12/03/19 [History] Acetaminophen 1,000 mg PO Q6H PRN 12/08/19 [History] Cyclobenzaprine [Flexeril] 10 mg PO TID PRN 12/08/19 [History] Fluticasone/Umeclidin/Vilanter [Trelegy Ellipta 100-62.5-25] 1 each IH DAILY 12/08/19 [History] Melatonin 3 mg PO BEDTIME 12/08/19 [History] Psyllium with Sucrose [Metamucil] 1 each PO DAILY 12/08/19 [History] Warfarin [Coumadin] 1 mg PO DAILY 12/08/19 [History] Non-Formulary Medication [NF Drug] 1 each PO BEDTIME each 12/11/19 [Rx] traMADol [Ultram] 50 mg PO Q6H #30 tab 12/11/19 [Rx] Past Medical History - Past Health History Medical/Surgical History: Denies Medical/Surgical History HEENT History: Reports: Cataract, Impaired Vision, Other (See Below) Other HEENT History: Lu's esophagus Cardiovascular History: Reports: Afib, Angina, Automatic Implantable Cardioverter Defibrillators, High Cholesterol, Hypertension, Pacemaker, SOB on Exertion Other Cardiovascular History: Ablation in July,, angiogram 07/25/2017 Respiratory History: Reports: PE, Pneumonia, Recurrent, Sleep Apnea, SOB Other Respiratory History: wears a cpap at night Gastrointestinal History: Reports: Bowel Obstruction, Chronic Constipation, GERD, Other (See Below) Other Gastrointestinal History: duodenal ulcer Genitourinary History: Reports: Renal Calculus, Other (See Below) Other Genitourinary History: prostate stent placed 10/01/2016 Musculoskeletal History: Reports: Back Pain, Chronic Other Musculoskeletal History: Neck pain causing migraines Neurological History: Reports: Migraines Other Neuro History: Patient had vertebrae in neck fused. Resolved some or most of headaches. Psychiatric History: Reports: Depression, Emotional Problems Endocrine/Metabolic History: Reports: Diabetes, Type II, Obesity/BMI 30+ Other Endocrine/Metabolic History: pt has insulin pump Hematologic History: Reports: B12 Deficiency, Blood Transfusion(s) Oncologic (Cancer) History: Reports: None Dermatologic History: Reports: Other (See Below) Other Dermatologic History: Had pre-cancer lesion removed to R arm. Has lesion to L wrist. - Infectious Disease History Infectious Disease History: Reports: Chicken Pox, Measles, Rubella - Past Surgical History HEENT Surgical History: Reports: Tonsillectomy Cardiovascular Surgical History: Reports: Cardiac Ablation, Pacer Respiratory Surgical History: Reports: None GI Surgical History: Reports: Colonoscopy, Hernia, Inguinal, Other (See Below) Male Surgical History: Reports: Kidney Stone Extraction, Lithotripsy ([facility]) Endocrine Surgical History: Reports: None Neurological Surgical History: Reports: C-Spine, Spinal Fusion Musculoskeletal Surgical History: Reports: Knee Replacement Social & Family History - Family History Family Medical History: Noncontributory HEENT: Reports: Cataract Cardiac: Reports: IA Respiratory: Reports: COPD GI: Reports: None : Reports: None Endocrine/Metabolic: Reports: Diabetes, type II Oncologic: Reports: Brain, Colon, Lung - Caffeine Use Caffeine Use: Reports: None Other Caffeine Use: diet coke - 3-4 cans /day - Living Situation & Occupation Living situation: Reports: Occupation: Unemployed Review of Systems - Review of Systems Review Of Systems: See Below Constitutional: Reports: No Symptoms Eyes: Reports: Glasses Ears: Reports: No Symptoms Nose: Reports: No Symptoms Mouth/Throat: Reports: No Symptoms Respiratory: Reports: No Symptoms Cardiovascular: Reports: Edema GI/Abdominal: Reports: No Symptoms Genitourinary: Reports: No Symptoms Musculoskeletal: Reports: Leg Pain (known right ankle fracture) Skin: Reports: Dryness Neurological: Reports: No Symptoms Psychiatric: Reports: No Symptoms ED EXAM, GENERAL - Physical Exam Exam: See Below Exam Limited By: No Limitations General Appearance: Alert, Obese Eye Exam: Bilateral Eye: PERRL Ears: Normal External Exam, Normal Canal, Normal TMs Ear Exam: Bilateral Ear: TM normal Nose: Normal Inspection, No Blood Throat/Mouth: Normal Inspection, Normal Lips, Normal Teeth, Normal Oropharynx, Normal Voice, No Airway Compromise Head: Atraumatic Neck: Normal Inspection, Non-Tender, Full Range of Motion Respiratory/Chest: No Respiratory Distress, Lungs Clear, Decreased Breath Sounds (due to body habitus) Cardiovascular: Normal Peripheral Pulses, Regular Rate, Rhythm, No Murmur Peripheral Pulses: 3+: Radial (L), Radial (R), Dorsalis Pedis (L), Dorsalis Pedis (R) GI/Abdominal: Normal Bowel Sounds, Soft (Male) Exam: Deferred Rectal (Males) Exam: Deferred Back Exam: Normal Inspection, Full Range of Motion. No: CVA Tenderness (R), CVA Tenderness (L) Extremities: Normal Range of Motion, Normal Capillary Refill, Pedal Edema, Leg Pain Neurological: Alert, Oriented, CN II-XII Intact, Normal Cognition, No Motor/Sensory Deficits Psychiatric: Normal Affect, Normal Mood Skin Exam: Warm, Dry, Intact Lymphatic: No Adenopathy Course - Vital Signs Last Recorded V/S: Last Vital Signs Temp 98.0 F 04/09/20 05:50 Pulse 84 04/09/20 05:50 Resp 20 04/09/20 05:50 BP 122/79 04/09/20 05:50 Pulse Ox 97 04/09/20 05:50 - Orders/Labs/Meds Orders: Active Orders 24 hr Category Date Time Status EKG Documentation Completion [RC] STAT Care 04/08/20 19:20 Active Chest 1V Frontal [CR] Stat Exams 04/08/20 19:20 Taken Medication Orders Hydrocodone Bitart/Acetaminophen ([place] 325-5 Mg) 1 tab PO Q6H PRN PRN Reason: Pain Last Admin: 04/09/20 07:50 Dose: 1 tab Documented by: Admin: 04/08/20 22:34 Dose: 1 tab Documented by: JOSEP Aspirin (Halfprin) 81 mg PO DAILY ZEV Atorvastatin Calcium (Lipitor) 80 mg PO BEDTIME ZEV Famotidine (Pepcid) 40 mg PO BID ZEV Fluoxetine HCl (Prozac) 20 mg PO DAILY ZEV Furosemide (Lasix) 20 mg PO DAILY ZEV Furosemide (Lasix) 60 mg PO DAILY ZEV Gabapentin (Neurontin) 300 mg PO BID ZEV Isosorbide Mononitrate (Imdur) 120 mg PO DAILY ZEV Losartan Potassium (Cozaar) 100 mg PO DAILY ZEV Metoclopramide HCl (Reglan) 10 mg PO QIDACANDBED ZEV Metolazone (Zaroxolyn) 2.5 mg PO Q72H ZEV Metoprolol Succinate (Toprol Xl) 50 mg PO DAILY ZEV Mometasone Furoate/Formoterol Fumar (Dulera 200-5 Mcg) 2 puff IH BID ZEV Tamsulosin HCl (Flomax) 0.4 mg PO DAILY [facility] Warfarin Sodium (Coumadin) 1 mg PO DAILY@1800 [facility] Labs: Laboratory Tests 04/08/20 Range/Units 19:42 Troponin I < 0.017 D (0.000-0.060) ng/mL B-Natriuretic Peptide 56 D (0-125) pg/mL Meds: Medications Generic Name Dose Route Start Last Admin Trade Name Awilda PRN Reason Stop Dose Admin Hydrocodone Bitart/Acetaminophen 1 tab 04/08/20 22:10 04/09/20 07:50 [place] 325-5 Mg PO 1 tab Q6H PRN Administration Pain Aspirin 81 mg 04/09/20 08:00 Halfprin PO DAILY [facility] Atorvastatin Calcium 80 mg 04/09/20 20:00 Lipitor PO BEDTIME [facility] Famotidine 40 mg 04/09/20 08:00 Pepcid PO BID [facility] Fluoxetine HCl 20 mg 04/09/20 08:00 Prozac PO DAILY [facility] Furosemide 20 mg 04/09/20 08:00 Lasix PO DAILY [facility] Furosemide 60 mg 04/09/20 14:00 Lasix PO DAILY [facility] Gabapentin 300 mg 04/09/20 08:00 Neurontin PO BID [facility] Isosorbide Mononitrate 120 mg 04/09/20 08:00 Imdur PO DAILY [facility] Losartan Potassium 100 mg 04/09/20 08:00 Cozaar PO DAILY [facility] Metoclopramide HCl 10 mg 04/09/20 07:00 Reglan PO QIDACANDBED [facility] Metolazone 2.5 mg 04/11/20 08:00 Zaroxolyn PO Q72H [facility] Metoprolol Succinate 50 mg 04/09/20 08:00 Toprol Xl PO DAILY [facility] Mometasone Furoate/Formoterol Fumar 2 puff 04/08/20 22:15 Dulera 200-5 Mcg IH BID [facility] Tamsulosin HCl 0.4 mg 04/09/20 08:00 Flomax PO DAILY [facility] Warfarin Sodium 1 mg 04/09/20 18:00 Coumadin PO DAILY@1800 [facility] Discontinued Medications Generic Name Dose Route Start Last Admin Trade Name Awilda PRN Reason Stop Dose Admin Fluoxetine HCl 10 mg 04/09/20 08:00 Prozac PO DAILY [facility] Departure - Departure Time of Disposition: 21:00 Disposition: Admitted As Inpatient 68 Condition: Fair Clinical Impression: Weakness generalized, Frequent falls - Discharge Information *PRESCRIPTION DRUG MONITORING PROGRAM REVIEWED*: Not Applicable *COPY OF PRESCRIPTION DRUG MONITORING REPORT IN PATIENT KAVON: Not Applicable - My Orders Last 24 Hours: My Active Orders 04/08/20 19:20 EKG Documentation Completion [RC] STAT Chest 1V Frontal [CR] Stat - Assessment/Plan Last 24 Hours: My Active Orders 04/08/20 19:20 EKG Documentation Completion [RC] STAT Chest 1V Frontal [CR] Stat Plan: Patient will be admitted to inpatient for weakness and multiple falls. He is agreeable to the plan. 2000 [facility] called, she will bring medication bottles and cpap.
[2020-04-08] MEDS: Acetaminophen/HYDROcodone 325-5 MG Tab PO PRN (22:34)
[2020-04-09] MEDS: Acetaminophen/HYDROcodone 325-5 MG Tab PO PRN (07:50)
[2020-04-09] MEDS: Furosemide 20 MG Tab PO SCH (08:00)
[2020-04-09] MEDS ORDERED: FLUoxetine 10 MG Cap PO SCH (08:00)
[2020-04-09] MEDS: Famotidine 20 MG Tab PO SCH ×2 (09:25→19:23)
[2020-04-09] MEDS: Gabapentin 300 MG Cap PO SCH ×2 (09:26→19:28)
[2020-04-09] MEDS: Isosorbide Mononitrate 60 MG Tab.ER PO SCH (09:27)
[2020-04-09] MEDS: Metoclopramide 10 MG Tab PO SCH ×4 (09:27→19:23)
[2020-04-09] MEDS: Losartan 50 MG Tab PO SCH (09:27)
[2020-04-09] MEDS: Aspirin 81 MG Tab.EC PO SCH (09:28)
[2020-04-09] MEDS: Metoprolol Succinate 50 MG Tab.ER PO SCH (09:28)
[2020-04-09] MEDS: Formoterol/Mometasone 200-5 MCG 8.8 GM Inhaler IH SCH ×3 (09:29→19:23)
[2020-04-09] MEDS: Tamsulosin 0.4 MG Cap.ER PO SCH (09:29)
[2020-04-09] MEDS: FLUoxetine 10 MG Cap PO SCH (09:30)
[2020-04-09] MEDS: Furosemide 40 MG Tab PO SCH (14:29)
--- NOTE | 2020-04-09 16:56 | PCM.PN ---
- General Info Date of Service: 04/09/20 Functional Status: Reports: Pain Controlled - Review of Systems General: Reports: No Symptoms HEENT: Reports: No Symptoms Pulmonary: Reports: No Symptoms Cardiovascular: Reports: Dyspnea on Exertion Gastrointestinal: Reports: No Symptoms Genitourinary: Reports: No Symptoms Musculoskeletal: Reports: Leg Pain, Foot Pain Skin: Reports: Other (bilateral knee abrasions healing with no signs of infection) Neurological: Reports: Dizziness Psychiatric: Reports: No Symptoms - Patient Data Vitals - Most Recent: Last Vital Signs Temp 96.8 F L 04/09/20 11:00 Pulse 83 04/09/20 11:00 Resp 20 04/09/20 11:00 BP 145/76 H 04/09/20 11:00 Pulse Ox 96 04/09/20 11:00 Weight - Most Recent: 396 lb 11.2 oz I&O - Last 24 Hours: Intake & Output 04/09/20 04/09/20 04/09/20 06:59 14:59 22:59 Intake Total 250 Output Total 300 Balance -50 Lab Results Last 24 Hours: Laboratory Results - last 24 hr 04/08/20 04/08/20 04/08/20 Range/Units 19:42 19:48 20:20 Troponin I < 0.017 D (0.000-0.060) ng/mL B-Natriuretic Peptide 56 D (0-125) pg/mL Urine Color Yellow Urine Appearance Clear (CLEAR) Urine pH 6.0 (5.0-8.0) Ur Specific [place] 1.015 (1.003-1.030) Urine Protein Negative (NEGATIVE) mg/dL Urine Glucose (UA) Negative (NEGATIVE) mg/dL Urine Ketones Negative (NEGATIVE) mg/dL Urine Occult Blood Trace-intact H (NEGATIVE) Urine Nitrite Negative (NEGATIVE) Urine Bilirubin Negative (NEGATIVE) Urine Urobilinogen 0.2 (0.2-1.0) E.U./dL Ur Leukocyte Esterase Negative (NEGATIVE) Urine RBC 0-5 H /HPF Urine WBC Not Reportable SARS-CoV-2 RNA (ASHLEY) Negative (NEGATIVE) Med Orders - Current: Current Medications Hydrocodone Bitart/Acetaminophen ([place] 325-5 Mg) 1 tab PO Q6H PRN PRN Reason: Pain Last Admin: 04/09/20 07:50 Dose: 1 tab Documented by: Aspirin (Halfprin) 81 mg PO DAILY [facility] Last Admin: 04/09/20 09:28 Dose: 81 mg Documented by: Atorvastatin Calcium (Lipitor) 80 mg PO BEDTIME [facility] Famotidine (Pepcid) 40 mg PO BID [facility] Last Admin: 04/09/20 09:25 Dose: 40 mg Documented by: Fluoxetine HCl (Prozac) 20 mg PO DAILY [facility] Last Admin: 04/09/20 09:30 Dose: 20 mg Documented by: Furosemide (Lasix) 20 mg PO DAILY [facility] Last Admin: 04/09/20 08:00 Dose: 20 mg Documented by: Furosemide (Lasix) 60 mg PO DAILY [facility] Last Admin: 04/09/20 14:29 Dose: Not Given Documented by: Gabapentin (Neurontin) 300 mg PO BID [facility] Last Admin: 04/09/20 09:26 Dose: 300 mg Documented by: Isosorbide Mononitrate (Imdur) 120 mg PO DAILY [facility] Last Admin: 04/09/20 09:27 Dose: 120 mg Documented by: Losartan Potassium (Cozaar) 100 mg PO DAILY [facility] Last Admin: 04/09/20 09:27 Dose: 100 mg Documented by: Metoclopramide HCl (Reglan) 10 mg PO QIDACANDBED [facility] Last Admin: 04/09/20 11:00 Dose: 10 mg Documented by: Metolazone (Zaroxolyn) 2.5 mg PO Q72H [facility] Metoprolol Succinate (Toprol Xl) 50 mg PO DAILY [facility] Last Admin: 04/09/20 09:28 Dose: 50 mg Documented by: Mometasone Furoate/Formoterol Fumar (Dulera 200-5 Mcg) 2 puff IH BID [facility] Last Admin: 04/09/20 09:29 Dose: 2 puff Documented by: Tamsulosin HCl (Flomax) 0.4 mg PO DAILY [facility] Last Admin: 04/09/20 09:29 Dose: 0.4 mg Documented by: Warfarin Sodium (Coumadin) 1 mg PO DAILY@1800 [facility] Discontinued Medications Fluoxetine HCl (Prozac) 10 mg PO DAILY [facility] Sepsis Event Note - Evaluation Sepsis Screening Result: No Definite Risk - Focused Exam Vital Signs: Vital Signs Temp Pulse Pulse Resp BP BP Pulse Ox 04/09/20 11:00 96.8 F L 83 20 145/76 H 96 04/09/20 09:28 83 145/76 H 04/09/20 09:27 145/76 H 04/09/20 05:50 98.0 F 84 20 122/79 97 - Problem List Review Problem List Initiated/Reviewed/Updated: Yes - My Orders Last 24 Hours: My Active Orders 04/08/20 19:20 EKG Documentation Completion [RC] STAT Chest 1V Frontal [CR] Stat 04/08/20 19:44 Patient Status [ADT] Routine Up With Assistance [RC] ASDIRECTED Vital Signs [RC] Q4H 04/08/20 22:10 Acetaminophen/HYDROcodone [[place] 325-5 MG] 1 tab PO Q6H PRN 04/08/20 22:15 Mometasone/Formoterol [Dulera 200-5 MCG] 2 puff IH BID 04/08/20 22:36 Patient May [OM.PC] CONTINUOUS 04/09/20 05:53 CULTURE MRSA [RM] Routine 04/09/20 Breakfast Heart Healthy Diet [DIET] Metoclopramide [Reglan] 10 mg PO QIDACANDBED 04/09/20 08:00 Aspirin [Halfprin] 81 mg PO DAILY FLUoxetine [PROzac] 20 mg PO DAILY Famotidine [Pepcid] 40 mg PO BID Furosemide [Lasix] 20 mg PO DAILY Gabapentin [Neurontin] 300 mg PO BID Isosorbide Mononitrate [Imdur] 120 mg PO DAILY Losartan [Cozaar] 100 mg PO DAILY Metoprolol Succinate [Toprol XL] 50 mg PO DAILY Tamsulosin [Flomax] 0.4 mg PO DAILY 04/09/20 13:16 Code Status [Resuscitation Status] Routine 04/09/20 13:17 Telemetry Monitoring [Cardiac Monitoring] [RC] .As Directed 04/09/20 14:00 Furosemide [Lasix] 60 mg PO DAILY 04/09/20 18:00 Warfarin [Coumadin] 1 mg PO DAILY@1800 04/09/20 20:00 atorvaSTATin [Lipitor] 80 mg PO BEDTIME 04/09/20 22:36 Patient May [OM.PC] CONTINUOUS 04/10/20 22:36 Patient May [OM.PC] CONTINUOUS 04/11/20 08:00 metOLazone [Zaroxolyn] 2.5 mg PO Q72H 04/11/20 22:36 Patient May [OM.PC] CONTINUOUS 04/12/20 22:36 Patient May [OM.PC] CONTINUOUS 04/13/20 22:36 Patient May [OM.PC] CONTINUOUS 04/14/20 22:36 Patient May [OM.PC] CONTINUOUS - Plan Plan:: 04/09/2020 Patient has no complaints of SOB or CP. He is sitting on the edge of the bed, no distress. Patient will be started on tele monitoring. We will try to schedule an echocardiogram while inpatient if possible.
[2020-04-09] MEDS: atorvaSTATin 80 MG Tab PO SCH (19:23)
[2020-04-10] MEDS: Acetaminophen/HYDROcodone 325-5 MG Tab PO PRN ×2 (04:16→12:04)
[2020-04-10] MEDS: Famotidine 20 MG Tab PO SCH ×2 (08:19→20:03)
[2020-04-10] MEDS: Gabapentin 300 MG Cap PO SCH ×2 (08:19→20:03)
[2020-04-10] MEDS: Tamsulosin 0.4 MG Cap.ER PO SCH (08:20)
[2020-04-10] MEDS: Metoclopramide 10 MG Tab PO SCH ×4 (08:21→20:03)
[2020-04-10] MEDS: Losartan 50 MG Tab PO SCH (08:22)
[2020-04-10] MEDS: Aspirin 81 MG Tab.EC PO SCH (08:22)
[2020-04-10] MEDS: Isosorbide Mononitrate 60 MG Tab.ER PO SCH (08:23)
[2020-04-10] MEDS: FLUoxetine 10 MG Cap PO SCH (08:24)
[2020-04-10] MEDS: Metoprolol Succinate 50 MG Tab.ER PO SCH (08:25)
[2020-04-10] MEDS: Furosemide 20 MG Tab PO SCH (08:26)
[2020-04-10] MEDS: Formoterol/Mometasone 200-5 MCG 8.8 GM Inhaler IH SCH ×2 (08:32→20:02)
[2020-04-10] MEDS: Furosemide 40 MG Tab PO SCH ×2 (09:02→14:15)
[2020-04-10] MEDS ORDERED: Melatonin 10 MG Cap PO PRN (09:04)
[2020-04-10] MEDS ORDERED: Warfarin 2 MG Tab PO SCH (17:15)
--- NOTE | 2020-04-10 17:50 | PCM.PN ---
- General Info Date of Service: 04/10/20 Functional Status: Reports: Pain Controlled, Tolerating Diet, Ambulating, Urinating - Review of Systems General: Reports: Weakness HEENT: Reports: No Symptoms Cardiovascular: Reports: Dyspnea on Exertion Gastrointestinal: Reports: No Symptoms Genitourinary: Reports: No Symptoms Musculoskeletal: Reports: Leg Pain Neurological: Reports: No Symptoms Psychiatric: Reports: No Symptoms - Patient Data Vitals - Most Recent: Last Vital Signs Temp 97.6 F 04/10/20 16:00 Pulse 72 04/10/20 16:00 Resp 20 04/10/20 16:00 BP 134/65 04/10/20 16:00 Pulse Ox 95 04/10/20 16:00 Orthostatic Blood Pressure [ 141/78 Standing] Orthostatic Blood Pressure [ 129/74 Sitting] Weight - Most Recent: 396 lb 11.2 oz I&O - Last 24 Hours: Intake & Output 04/10/20 04/10/20 04/10/20 06:59 14:59 22:59 Intake Total 560 Balance 560 Devyn Results Last 24 Hours: Microbiology 04/09/20 05:53 MRSA Culture - Final Nares, Right NO MRSA ISOLATED Med Orders - Current: Current Medications Hydrocodone Bitart/Acetaminophen ([place] 325-5 Mg) 1 tab PO Q6H PRN PRN Reason: Pain Last Admin: 04/10/20 12:04 Dose: 1 tab Documented by: Aspirin (Halfprin) 81 mg PO DAILY [facility] Last Admin: 04/10/20 08:22 Dose: 81 mg Documented by: Atorvastatin Calcium (Lipitor) 80 mg PO BEDTIME [facility] Last Admin: 04/09/20 19:23 Dose: 80 mg Documented by: Famotidine (Pepcid) 40 mg PO BID [facility] Last Admin: 04/10/20 08:19 Dose: 40 mg Documented by: Fluoxetine HCl (Prozac) 20 mg PO DAILY [facility] Last Admin: 04/10/20 08:24 Dose: 20 mg Documented by: Furosemide (Lasix) 20 mg PO DAILY [facility] Last Admin: 04/10/20 08:26 Dose: 20 mg Documented by: Furosemide (Lasix) 60 mg PO 1400 [facility] Last Admin: 04/10/20 14:15 Dose: 60 mg Documented by: Gabapentin (Neurontin) 300 mg PO BID [facility] Last Admin: 04/10/20 08:19 Dose: 300 mg Documented by: Isosorbide Mononitrate (Imdur) 120 mg PO DAILY [facility] Last Admin: 04/10/20 08:23 Dose: 120 mg Documented by: Losartan Potassium (Cozaar) 100 mg PO DAILY [facility] Last Admin: 04/10/20 08:22 Dose: 100 mg Documented by: Melatonin (Melatonin) 10 mg PO BEDTIME PRN PRN Reason: Insomnia Metoclopramide HCl (Reglan) 10 mg PO QIDACANDBED [facility] Last Admin: 04/10/20 17:03 Dose: 10 mg Documented by: Metolazone (Zaroxolyn) 2.5 mg PO Q72H [facility] Metoprolol Succinate (Toprol Xl) 50 mg PO DAILY [facility] Last Admin: 04/10/20 08:25 Dose: 50 mg Documented by: Mometasone Furoate/Formoterol Fumar (Dulera 200-5 Mcg) 2 puff IH BID [facility] Last Admin: 04/10/20 08:32 Dose: 2 puff Documented by: Tamsulosin HCl (Flomax) 0.4 mg PO DAILY [facility] Last Admin: 04/10/20 08:20 Dose: 0.4 mg Documented by: Warfarin Sodium (Coumadin) 1 mg PO MoTuWeFrSa@1800 [facility] Warfarin Sodium (Coumadin) 2 mg PO SuTh@1800 [facility] Warfarin Sodium (Coumadin) 1 mg PO ONETIME ONE Stop: 04/10/20 18:01 Discontinued Medications Fluoxetine HCl (Prozac) 10 mg PO DAILY [facility] Furosemide (Lasix) 60 mg PO DAILY [facility] Last Admin: 04/10/20 09:02 Dose: Not Given Documented by: Warfarin Sodium (Coumadin) 1 mg PO DAILY@1800 [facility] Last Admin: 04/10/20 17:03 Dose: 1 mg Documented by: Warfarin Sodium (Coumadin) 1 mg PO 1800 [facility] Warfarin Sodium (Coumadin) 2 mg PO ASDIRECTED [facility] Sepsis Event Note - Evaluation Sepsis Screening Result: No Definite Risk - Focused Exam Vital Signs: Vital Signs Temp Temp Pulse Pulse Resp BP BP 04/10/20 16:00 97.6 F 72 20 134/65 04/10/20 12:00 98 F 78 18 119/64 04/10/20 09:00 97.8 F 66 18 144/76 H 04/10/20 08:25 66 144/76 H 11/08/20 08:22 144/76 H 04/10/20 05:53 97.7 F 64 18 141/57 H Pulse Ox 04/10/20 16:00 95 04/10/20 12:00 94 L 04/10/20 09:00 96 04/10/20 08:25 04/10/20 08:22 04/10/20 05:53 97 - Problem List Review Problem List Initiated/Reviewed/Updated: Yes - My Orders Last 24 Hours: My Active Orders 04/09/20 20:00 atorvaSTATin [Lipitor] 80 mg PO BEDTIME 04/09/20 22:36 Patient May [OM.PC] CONTINUOUS 04/10/20 09:04 Melatonin 10 mg PO BEDTIME PRN 04/10/20 14:00 Furosemide [Lasix] 60 mg PO 1400 04/10/20 Dinner Consistent Carbohydrate Diet [DIET] 04/10/20 18:00 Warfarin [Coumadin] 1 mg PO ONETIME ONE 04/10/20 22:36 Patient May [OM.PC] CONTINUOUS 04/11/20 08:00 metOLazone [Zaroxolyn] 2.5 mg PO Q72H 04/11/20 18:00 Warfarin [Coumadin] 1 mg PO MoTuWeFrSa@1800 04/11/20 22:36 Patient May [OM.PC] CONTINUOUS 04/12/20 22:36 Patient May [OM.PC] CONTINUOUS 04/13/20 22:36 Patient May [OM.PC] CONTINUOUS 04/14/20 18:00 Warfarin [Coumadin] 2 mg PO SuTh@1800 04/14/20 22:36 Patient May [OM.PC] CONTINUOUS - Assessment Assessment:: This AM patient reported to RN that he had a coughing fit and seizure. On exam, patient in no distress, no complaints. States he has had seizures in the past, this one involved his left arm and leg twitching for seconds. No seizure like activity noted, patient is not post ictal. He will report if symptoms return. - Plan Plan:: 04/09/2020 Patient has no complaints of SOB or CP. He is sitting on the edge of the bed, no distress. Patient will be started on tele monitoring. We will try to schedule an echocardiogram while inpatient if possible.
[2020-04-10] MEDS ORDERED: Famotidine 20 MG Tab ONE (19:40)
[2020-04-10] MEDS: atorvaSTATin 80 MG Tab PO SCH (20:03)
[2020-04-11] MEDS ORDERED: Metolazone 5 MG Tab PO SCH (08:00)
[2020-04-11] MEDS: Furosemide 20 MG Tab PO SCH (08:02)
[2020-04-11] MEDS: Metoclopramide 10 MG Tab PO SCH ×4 (08:02→20:02)
[2020-04-11] MEDS: Losartan 50 MG Tab PO SCH (08:03)
[2020-04-11] MEDS: Metoprolol Succinate 50 MG Tab.ER PO SCH (08:04)
[2020-04-11] MEDS: Tamsulosin 0.4 MG Cap.ER PO SCH (08:04)
[2020-04-11] MEDS: Aspirin 81 MG Tab.EC PO SCH (08:04)
[2020-04-11] MEDS: Gabapentin 300 MG Cap PO SCH ×2 (08:05→20:02)
[2020-04-11] MEDS: FLUoxetine 10 MG Cap PO SCH (08:05)
[2020-04-11] MEDS: Famotidine 20 MG Tab PO SCH ×2 (08:06→20:02)
[2020-04-11] MEDS: Formoterol/Mometasone 200-5 MCG 8.8 GM Inhaler IH SCH ×2 (08:09→20:03)
[2020-04-11] MEDS ORDERED: Isosorbide Mononitrate 60 MG Tab.ER ONE (08:11)
[2020-04-11] MEDS: Isosorbide Mononitrate 60 MG Tab.ER PO SCH (08:11)
--- NOTE | 2020-04-11 08:12 | CR ---
Date of Service: 04/08/20 Clinical data: Weakness with increased shortness of breath. AP CHEST: Comparison is made to a prior exam dated 03/29/20. The cardiac pacer and pacer wires remain unchanged in position. The heart is mildly enlarged. There is calcification of the aortic arch. There are minimal atelectatic changes in both lung bases. The lungs are otherwise clear. No pneumothorax. No pleural effusions. [id number] [facility]
--- NOTE | 2020-04-11 11:21 | PCM.PN ---
- General Info Date of Service: 04/11/20 Functional Status: Reports: Pain Controlled, Tolerating Diet, Ambulating - Review of Systems General: Reports: Weakness HEENT: Reports: No Symptoms Pulmonary: Reports: No Symptoms Cardiovascular: Reports: Dyspnea on Exertion Gastrointestinal: Reports: No Symptoms Genitourinary: Reports: No Symptoms Musculoskeletal: Reports: Leg Pain - Patient Data Vitals - Most Recent: Last Vital Signs Temp 97.4 F 04/11/20 08:00 Pulse 75 04/11/20 08:04 Resp 18 04/11/20 08:00 BP 159/83 H 04/11/20 08:04 Pulse Ox 97 04/11/20 08:00 Orthostatic Blood Pressure [ 141/78 Standing] Orthostatic Blood Pressure [ 129/74 Sitting] Weight - Most Recent: 396 lb 11.2 oz I&O - Last 24 Hours: Intake & Output 04/10/20 04/11/20 04/11/20 22:59 06:59 14:59 Intake Total 550 Balance 550 Lab Results Last 24 Hours: Laboratory Results - last 24 hr 04/11/20 04/11/20 04/11/20 Range/Units 09:30 09:34 09:34 WBC 8.9 (4.0-11.0) K/uL RBC 4.67 (4.50-6.50) M/uL Hgb 13.2 (13.0-18.0) g/dL Hct 39.8 L (40.0-54.0) % MCV 85 (76-96) fL MCH 28.3 (27.0-32.0) pg MCHC 33.2 (31.0-35.0) g/dL RDW 14.8 (11.0-16.0) % Plt Count 177 (150-400) K/uL MPV 11.5 H (6.0-10.0) fL Neut % (Auto) 58.7 (45.0-70.0) % Lymph % (Auto) 29.0 (20.0-40.0) % [place] % (Auto) 10.3 H (3.0-10.0) % Eos % (Auto) 1.7 (1.0-5.0) % Baso % (Auto) 0.3 (0.0-0.5) % Neut # (Auto) 5.22 (2.00-7.50) K/uL Lymph # (Auto) 2.58 (1.50-4.00) K/uL [place] # (Auto) 0.92 H (0.20-0.80) K/uL Eos # (Auto) 0.15 (0.04-0.40) K/uL Baso # (Auto) 0.03 (0.02-0.10) K/uL PT 33.1 H D (9.0-11.5) sec INR 3.3 D (1.0-3.5) Sodium 138 (136-145) mmol/L Potassium 2.9 L* (3.5-5.1) mmol/L Chloride 98 (98-107) mmol/L Carbon Dioxide 30.2 (21.0-32.0) mmol/L Anion Gap 12.7 (5.0-15.0) mmol/L BUN 33 H (8-26) mg/dL Creatinine 1.66 H (0.70-1.30) mg/dL Est Cr Clr Drug Dosing 44.15 mL/min Estimated GFR (MDRD) 41 L (>60) MLS/MIN BUN/Creatinine Ratio 19.9 (6-25) Glucose 190 H D (74-100) mg/dL Calcium 8.5 (8.5-10.1) mg/dL Devyn Results Last 24 Hours: Microbiology 04/09/20 05:53 MRSA Culture - Final Nares, Right NO MRSA ISOLATED Med Orders - Current: Current Medications Hydrocodone Bitart/Acetaminophen ([place] 325-5 Mg) 1 tab PO Q6H PRN PRN Reason: Pain Last Admin: 04/10/20 12:04 Dose: 1 tab Documented by: Aspirin (Halfprin) 81 mg PO DAILY [facility] Last Admin: 04/11/20 08:04 Dose: 81 mg Documented by: Atorvastatin Calcium (Lipitor) 80 mg PO BEDTIME [facility] Last Admin: 04/10/20 20:03 Dose: 80 mg Documented by: Famotidine (Pepcid) 40 mg PO BID [facility] Last Admin: 04/11/20 08:06 Dose: 40 mg Documented by: Fluoxetine HCl (Prozac) 20 mg PO DAILY [facility] Last Admin: 04/11/20 08:05 Dose: 20 mg Documented by: Furosemide (Lasix) 20 mg PO DAILY [facility] Last Admin: 04/11/20 08:02 Dose: 20 mg Documented by: Furosemide (Lasix) 60 mg PO 1400 [facility] Last Admin: 04/10/20 14:15 Dose: 60 mg Documented by: Gabapentin (Neurontin) 300 mg PO BID [facility] Last Admin: 04/11/20 08:05 Dose: 300 mg Documented by: Isosorbide Mononitrate (Imdur) 120 mg PO DAILY [facility] Last Admin: 04/11/20 08:11 Dose: 120 mg Documented by: Losartan Potassium (Cozaar) 100 mg PO DAILY [facility] Last Admin: 04/11/20 08:03 Dose: 100 mg Documented by: Melatonin (Melatonin) 10 mg PO BEDTIME PRN PRN Reason: Insomnia Metoclopramide HCl (Reglan) 10 mg PO QIDACANDBED [facility] Last Admin: 04/11/20 11:02 Dose: 10 mg Documented by: Metolazone (Zaroxolyn) 2.5 mg PO Q72H [facility] Last Admin: 04/11/20 08:08 Dose: 2.5 mg Documented by: Metoprolol Succinate (Toprol Xl) 50 mg PO DAILY [facility] Last Admin: 04/11/20 08:04 Dose: 50 mg Documented by: Mometasone Furoate/Formoterol Fumar (Dulera 200-5 Mcg) 2 puff IH BID [facility] Last Admin: 04/11/20 08:09 Dose: 2 puff Documented by: Potassium Chloride (Klor-Con M20) 40 meq PO DAILY [facility] Tamsulosin HCl (Flomax) 0.4 mg PO DAILY [facility] Last Admin: 04/11/20 08:04 Dose: 0.4 mg Documented by: Warfarin Sodium (Coumadin) 1 mg PO MoTuWeFrSa@1800 [facility] Warfarin Sodium (Coumadin) 2 mg PO SuTh@1800 [facility] Discontinued Medications Famotidine (Pepcid) Confirm Administered Dose 20 mg .ROUTE .STK-MED ONE Stop: 04/10/20 19:41 Last Admin: 04/10/20 20:02 Dose: Not Given Documented by: Fluoxetine HCl (Prozac) 10 mg PO DAILY [facility] Furosemide (Lasix) 60 mg PO DAILY [facility] Last Admin: 04/10/20 09:02 Dose: Not Given Documented by: Isosorbide Mononitrate (Imdur) Confirm Administered Dose 60 mg .ROUTE .STK-MED ONE Stop: 04/11/20 08:12 Last Admin: 04/11/20 08:31 Dose: Not Given Documented by: Warfarin Sodium (Coumadin) 1 mg PO DAILY@1800 [facility] Last Admin: 04/10/20 17:03 Dose: 1 mg Documented by: Warfarin Sodium (Coumadin) 1 mg PO 1800 [facility] Warfarin Sodium (Coumadin) 2 mg PO ASDIRECTED [facility] Warfarin Sodium (Coumadin) 1 mg PO ONETIME ONE Stop: 04/10/20 18:01 Last Admin: 04/10/20 17:56 Dose: 1 mg Documented by: Sepsis Event Note - Evaluation Sepsis Screening Result: No Definite Risk - Focused Exam Vital Signs: Vital Signs Temp Pulse Pulse Resp BP BP Pulse Ox 04/11/20 08:04 75 159/83 H 04/11/20 08:03 159/83 H 04/11/20 08:00 97.4 F 75 18 159/83 H 97 04/11/20 04:00 70 18 04/11/20 00:00 65 18 - Problem List Review Problem List Initiated/Reviewed/Updated: Yes - My Orders Last 24 Hours: My Active Orders 04/10/20 14:00 Furosemide [Lasix] 60 mg PO 1400 04/10/20 Dinner Consistent Carbohydrate Diet [DIET] 04/10/20 22:36 Patient May [OM.PC] CONTINUOUS 04/11/20 08:00 metOLazone [Zaroxolyn] 2.5 mg PO Q72H 04/11/20 11:14 Consult to Physical Therapy [PT Evaluation and Treatment] [CONS] Routine 04/11/20 11:15 Potassium Chloride [Klor-Con M20] 40 meq PO DAILY 04/11/20 18:00 Warfarin [Coumadin] 1 mg PO MoTuWeFrSa@1800 04/11/20 22:36 Patient May [OM.PC] CONTINUOUS 04/12/20 08:00 COMPREHENSIVE METABOLIC PN,CMP [CHEM] Routine 04/12/20 22:36 Patient May [OM.PC] CONTINUOUS 04/13/20 22:36 Patient May [OM.PC] CONTINUOUS 04/14/20 18:00 Warfarin [Coumadin] 2 mg PO SuTh@1800 04/14/20 22:36 Patient May [OM.PC] CONTINUOUS - Assessment Assessment:: This AM patient reported to RN that he had a coughing fit and seizure. On exam, patient in no distress, no complaints. States he has had seizures in the past, this one involved his left arm and leg twitching for seconds. No seizure like activity noted, patient is not post ictal. He will report if symptoms return. - Plan Plan:: 04/09/2020 Patient has no complaints of SOB or CP. He is sitting on the edge of the bed, no distress. Patient will be started on tele monitoring. We will try to schedule an echocardiogram while inpatient if possible. 04/11/2020 Patient has PT, carotid US, echocardiogram ordered due to ongoing weakness. Patient has no complaints at this time. He will be given potassium for level of 2.9.
[2020-04-11] MEDS ORDERED: Potassium Chloride 40 MEQ/20 ML SDV IV ONE (11:30)
[2020-04-11] MEDS: Potassium Chloride 20 MEQ Tab.ER PO SCH (11:58)
[2020-04-11] MEDS: Furosemide 40 MG Tab PO SCH (14:34)
[2020-04-11] MEDS ORDERED: Potassium Chloride Riders 50 ML IV SCH (15:00)
[2020-04-11] MEDS: atorvaSTATin 80 MG Tab PO SCH (20:02)
[2020-04-11] MEDS: Acetaminophen/HYDROcodone 325-5 MG Tab PO PRN (20:07)
[2020-04-12] MEDS: Acetaminophen/HYDROcodone 325-5 MG Tab PO PRN ×2 (03:00→09:23)
[2020-04-12] MEDS: Furosemide 20 MG Tab PO SCH (08:01)
[2020-04-12] MEDS: Aspirin 81 MG Tab.EC PO SCH (08:01)
[2020-04-12] MEDS: Gabapentin 300 MG Cap PO SCH (08:01)
[2020-04-12] MEDS: Tamsulosin 0.4 MG Cap.ER PO SCH (08:01)
[2020-04-12] MEDS: Metoprolol Succinate 50 MG Tab.ER PO SCH (08:01)
[2020-04-12] MEDS: Famotidine 20 MG Tab PO SCH (08:01)
[2020-04-12] MEDS: Potassium Chloride 20 MEQ Tab.ER PO SCH (08:02)
[2020-04-12] MEDS: FLUoxetine 10 MG Cap PO SCH (08:02)
[2020-04-12] MEDS: Metoclopramide 10 MG Tab PO SCH ×2 (08:02→11:45)
[2020-04-12] MEDS: Losartan 50 MG Tab PO SCH (08:02)
[2020-04-12] MEDS: Isosorbide Mononitrate 60 MG Tab.ER PO SCH (08:03)
[2020-04-12] MEDS: Formoterol/Mometasone 200-5 MCG 8.8 GM Inhaler IH SCH (08:03)
[2020-04-12] MEDS ORDERED: Potassium Chloride 20 MEQ Tab.ER PO ONE (09:14)
[2020-04-12 12:45] VITALS: BP 100/56; PULSE 66
--- NOTE | 2020-04-12 14:33 | PCM.DCSUM1 ---
Discharge Summary - Hospital Course Free Text/Narrative:: Patient is a 74 y/o male who was admitted for syncope and falls. He was found to be hypokalemia this AM and was given potassium supplements, which resolved the electrolyte deficiency. Patient was started on Metolazone about 12 days ago and patient admits to not feeling better on it and having more falls. Will d/c this medication. Patient wants to go home and PT evaluation cleared patient, stating he is at his baseline and does not have any weakness. Carotid US was ordered for this (04/14) and patient with follow up with Dr. Chacon on Saturday (04/15). ECHO is scheduled for 04/18. Social work was consulted for possible usp placement in which patient and his showed interest, but patient isn't ready for that now and will go home to discuss with . No other findings on lab work and patient is walking without difficulty. Diagnosis: Stroke: No - Discharge Data Discharge Date: 04/12/20 Discharge Disposition: Home, Self-Care 01 Condition: Stable - Referral to Home Health Primary Care Physician: PCP None - Patient Summary/Data Consults: Consultations 04/11/20 11:14 Consult to Physical Therapy [PT Evaluation and Treatment] [CONS] Routine Please Evaluate and Treat. PT Reason for Consult: Strengthening This query below is only for informational purposes and is not editable. Admission Diagnosis/Problem: Weakness - Patient Instructions Diet: Low Sodium, Fluid Restriction, Diabetic Diet Fluid Restriction: 2000 mL Activity: No Lifting Over 10 Pounds, No Strenuous Activities Notify Provider of: Fever, Increased Pain, Nausea and/or Vomiting - Discharge Plan *PRESCRIPTION DRUG MONITORING PROGRAM REVIEWED*: Not Applicable *COPY OF PRESCRIPTION DRUG MONITORING REPORT IN PATIENT KAVON: Not Applicable Home Medications: Home Meds Omeprazole 20 mg PO DAILY 05/26/15 [History] atorvaSTATin [Lipitor] 80 mg PO BEDTIME 05/26/15 [History] Metoprolol Succinate [Toprol XL] 50 mg PO DAILY 05/25/16 [History] Furosemide 20 mg PO QAM 03/29/17 [History] Metoclopramide HCl [Reglan] 10 mg PO QIDACANDBED 03/29/17 [History] Tamsulosin HCl 0.4 mg PO DAILY 03/29/17 [History] Insulin Pump Syringe, 3 mL [Minimed [place]] 1 each MC ASDIRECTED 04/04/17 [History] Isosorbide Mononitrate [Isosorbide Mononitrate ER] 120 mg PO DAILY 09/09/17 [History] Aspirin [Halfprin] 81 mg PO DAILY 12/03/19 [History] Gabapentin [Neurontin] 300 mg PO BID 12/03/19 [History] Losartan [Cozaar] 100 mg PO DAILY 12/03/19 [History] Acetaminophen 1,000 mg PO Q6H PRN 12/08/19 [History] Cyclobenzaprine [Flexeril] 10 mg PO TID PRN 12/08/19 [History] Fluticasone/Umeclidin/Vilanter [Trelegy Ellipta 100-62.5-25] 1 each IH DAILY 12/08/19 [History] Warfarin [Coumadin] 1 mg PO DAILY 12/08/19 [History] Dicyclomine HCl [Bentyl] 10 mg PO DAILY 04/10/20 [History] FLUoxetine [PROzac] 20 mg PO DAILY 04/10/20 [History] Famotidine 40 mg PO BID 04/10/20 [History] Furosemide [Lasix] 60 mg PO 1400 04/10/20 [History] Melatonin 10 mg PO BEDTIME PRN 04/10/20 [History] Mometasone/Formoterol [Dulera 200 MCG/5 MCG] 2 puff INH BID 04/10/20 [History] Rizatriptan Benzoate [Rizatriptan] 10 mg PO DAILY 04/10/20 [History] Umeclidinium Brm/Vilanterol Tr [Anoro Ellipta 62.5-25 MCG] 1 puff INH DAILY 04/10/20 [History] Forms: ED Department Discharge Referrals: PCP,None [Primary Care Provider] - - Discharge Summary/Plan Comment DC Time >30 min.: No - Patient Data Vitals - Most Recent: Last Vital Signs Temp 36.5 C 04/12/20 12:00 Pulse 66 04/12/20 12:00 Resp 18 04/12/20 12:00 BP 100/56 L 04/12/20 12:00 Pulse Ox 95 04/12/20 12:00 Orthostatic Blood Pressure [ 141/78 Standing] Orthostatic Blood Pressure [ 129/74 Sitting] Weight - Most Recent: 179.713 kg I&O - Last 24 hours: Intake & Output 04/11/20 04/12/20 04/12/20 22:59 06:59 14:59 Intake Total 400 Balance 400 Lab Results - Last 24 hrs: Laboratory Results - last 24 hr 04/12/20 04/12/20 Range/Units 09:10 13:30 Sodium 137 (136-145) mmol/L Potassium 2.9 L* 3.5 D (3.5-5.1) mmol/L Chloride 97 L (98-107) mmol/L Carbon Dioxide 29.9 (21.0-32.0) mmol/L Anion Gap 13.0 (5.0-15.0) mmol/L BUN 33 H (8-26) mg/dL Creatinine 1.61 H (0.70-1.30) mg/dL Est Cr Clr Drug Dosing 45.52 mL/min Estimated GFR (MDRD) 42 L (>60) MLS/MIN BUN/Creatinine Ratio 20.5 (6-25) Glucose 103 H D (74-100) mg/dL Calcium 8.6 (8.5-10.1) mg/dL Total Bilirubin 0.9 (0.0-1.0) mg/dL AST 29 (15-37) U/L ALT 42 (12-78) U/L Alkaline Phosphatase 96 (46-116) U/L Total Protein 7.2 (6.4-8.2) g/dL Albumin 3.5 (3.4-5.0) g/dL Globulin 3.7 (2.2-4.2) g/dL Albumin/Globulin Ratio 0.9 (0.8-2.0) Med Orders - Current: Current Medications Hydrocodone Bitart/Acetaminophen ([place] 325-5 Mg) 1 tab PO Q6H PRN PRN Reason: Pain Last Admin: 04/12/20 09:23 Dose: 1 tab Documented by: Aspirin (Halfprin) 81 mg PO DAILY [facility] Last Admin: 04/12/20 08:01 Dose: 81 mg Documented by: Atorvastatin Calcium (Lipitor) 80 mg PO BEDTIME [facility] Last Admin: 04/11/20 20:02 Dose: 80 mg Documented by: Famotidine (Pepcid) 40 mg PO BID [facility] Last Admin: 04/12/20 08:01 Dose: 40 mg Documented by: Fluoxetine HCl (Prozac) 20 mg PO DAILY [facility] Last Admin: 04/12/20 08:02 Dose: 20 mg Documented by: Furosemide (Lasix) 20 mg PO DAILY [facility] Last Admin: 04/12/20 08:01 Dose: 20 mg Documented by: Furosemide (Lasix) 60 mg PO 1400 [facility] Last Admin: 04/11/20 14:34 Dose: 60 mg Documented by: Gabapentin (Neurontin) 300 mg PO BID [facility] Last Admin: 04/12/20 08:01 Dose: 300 mg Documented by: Isosorbide Mononitrate (Imdur) 120 mg PO DAILY [facility] Last Admin: 04/12/20 08:03 Dose: 120 mg Documented by: Losartan Potassium (Cozaar) 100 mg PO DAILY [facility] Last Admin: 04/12/20 08:02 Dose: 100 mg Documented by: Melatonin (Melatonin) 10 mg PO BEDTIME PRN PRN Reason: Insomnia Metoclopramide HCl (Reglan) 10 mg PO QIDACANDBED [facility] Last Admin: 04/12/20 11:45 Dose: 10 mg Documented by: Metoprolol Succinate (Toprol Xl) 50 mg PO DAILY [facility] Last Admin: 04/12/20 08:01 Dose: 50 mg Documented by: Mometasone Furoate/Formoterol Fumar (Dulera 200-5 Mcg) 2 puff IH BID [facility] Last Admin: 04/12/20 08:03 Dose: 2 puff Documented by: Potassium Chloride (Klor-Con M20) 40 meq PO DAILY [facility] Last Admin: 04/12/20 08:02 Dose: 40 meq Documented by: Tamsulosin HCl (Flomax) 0.4 mg PO DAILY [facility] Last Admin: 04/12/20 08:01 Dose: 0.4 mg Documented by: Warfarin Sodium (Coumadin) 1 mg PO MoTuWeFrSa@1800 [facility] Last Admin: 04/11/20 17:22 Dose: 1 mg Documented by: Warfarin Sodium (Coumadin) 2 mg PO SuTh@1800 [facility] Discontinued Medications Famotidine (Pepcid) Confirm Administered Dose 20 mg .ROUTE .[facility]-MED ONE Stop: 04/10/20 19:41 Last Admin: 04/10/20 20:02 Dose: Not Given Documented by: Fluoxetine HCl (Prozac) 10 mg PO DAILY [facility] Furosemide (Lasix) 60 mg PO DAILY [facility] Last Admin: 04/10/20 09:02 Dose: Not Given Documented by: Potassium Chloride (Kcl 10 Meq In Water 50 Ml) 50 mls @ 50 mls/hr IV ASDIRECTED [facility] Stop: 04/11/20 23:59 Last Admin: 04/11/20 14:49 Dose: 50 mls/hr Documented by: Isosorbide Mononitrate (Imdur) Confirm Administered Dose 60 mg .ROUTE .STK-MED ONE Stop: 04/11/20 08:12 Last Admin: 04/11/20 08:31 Dose: Not Given Documented by: Metolazone (Zaroxolyn) 2.5 mg PO Q72H [facility] Last Admin: 04/11/20 08:08 Dose: 2.5 mg Documented by: Potassium Chloride (Klor-Con M20) 40 meq PO ONETIME ONE Stop: 04/12/20 09:15 Last Admin: 04/12/20 09:56 Dose: 40 meq Documented by: Warfarin Sodium (Coumadin) 1 mg PO DAILY@1800 [facility] Last Admin: 04/10/20 17:03 Dose: 1 mg Documented by: Warfarin Sodium (Coumadin) 1 mg PO 1800 [facility] Warfarin Sodium (Coumadin) 2 mg PO ASDIRECTED [facility] Warfarin Sodium (Coumadin) 1 mg PO ONETIME ONE Stop: 04/10/20 18:01 Last Admin: 04/10/20 17:56 Dose: 1 mg Documented by:
[2020-04-14] MEDS ORDERED: Warfarin 2 MG Tab PO SCH (18:00)
== END 2020-04-12 14:51 | disposition home or self-care (01) | DRG 948 ==
LOC: LB.ED 19:03 → LB.MS 19:44 → UNDOADMIN 20:35 → LB.MS 20:35
PROVIDERS: ADMIT Nurse Practitioner; ATTEND Nurse Practitioner
DX: R53.1 Weakness (principal); Z68.43 Body mass index [BMI] 50.0-59.9, adult; S82.891A Other fracture of right lower leg, initial encounter for closed fracture; I10 Essential (primary) hypertension; H26.9 Unspecified cataract; H54.7 Unspecified visual loss; G47.33 Obstructive sleep apnea (adult) (pediatric); K21.9 Gastro-esophageal reflux disease without esophagitis; G47.30 Sleep apnea, unspecified; K59.09 Other constipation; K26.9 Duodenal ulcer, unspecified as acute or chronic, without hemorrhage or perforation; Z86.711 Personal history of pulmonary embolism; N20.0 Calculus of kidney; Z87.442 Personal history of urinary calculi; M54.9 Dorsalgia, unspecified; G89.29 Other chronic pain; M54.2 Cervicalgia; G43.909 Migraine, unspecified, not intractable, without status migrainosus; E11.9 Type 2 diabetes mellitus without complications; E66.9 Obesity, unspecified; E53.8 Deficiency of other specified B group vitamins; F32.9 Major depressive disorder, single episode, unspecified; I20.9 Angina pectoris, unspecified; Z96.41 Presence of insulin pump (external) (internal); R29.6 Repeated falls; K22.70 Barrett's esophagus without dysplasia; I48.91 Unspecified atrial fibrillation; Z20.828 Contact with and (suspected) exposure to other viral communicable diseases; Z96.659 Presence of unspecified artificial knee joint; E87.6 Hypokalemia; Z91.02 Food additives allergy status; W19.XXXA Unspecified fall, initial encounter; E78.00 Pure hypercholesterolemia, unspecified; Z95.810 Presence of automatic (implantable) cardiac defibrillator; Z87.01 Personal history of pneumonia (recurrent); Z79.82 Long term (current) use of aspirin; Z91.81 History of falling; Z79.899 Other long term (current) drug therapy; Z79.4 Long term (current) use of insulin; Z91.018 Allergy to other foods; Z79.52 Long term (current) use of systemic steroids; Z79.01 Long term (current) use of anticoagulants; Z88.8 Allergy status to other drugs, medicaments and biological substances; Z87.19 Personal history of other diseases of the digestive system; Z90.89 Acquired absence of other organs; Z98.1 Arthrodesis status; Z98.890 Other specified postprocedural states; Z82.49 Family history of ischemic heart disease and other diseases of the circulatory system; Z83.6 Family history of other diseases of the respiratory system; Z86.69 Personal history of other diseases of the nervous system and sense organs
CPT/HCPCS: 36415; 71045; 80048; 80053; 81001; 83880; 84132; 84484; 85025; 85610; 87070; 97110-GP; 97161-GP; 99285-25; A9270-GY; J3480; U0002

== ENCOUNTER 2020-05-25 17:43 | Observation (INO) | payer MEDICARE ==
--- NOTE | 2020-05-25 19:02 | EDM.PDOC ---
ED HPI GENERAL MEDICAL PROBLEM - General Chief Complaint: General Stated Complaint: IRREGULAR HEART RATE Time Seen by Provider: 05/25/20 18:26 - History of Present Illness INITIAL COMMENTS - FREE TEXT/NARRATIVE: patient presented to the ER by EMS due to '' palpitations and chest pain ''. Occurred an hour prior to arrival while at rest watching TV. He self administered nitro x3 and ASA 81mg x3 before his symptoms resolved. He called 911 who brought him to the ER for further eval. Vitals were WNL and patient denies symptoms upon arrival except for mild SOB that resolved with O2 by NC. h/o similar complaints in the past. Reports he underwent an angiogram last week that was WNL. no stent was placed. Patient is obese and has a h/o acid reflux for which he is on PPI. EKG was done and showed NSR, no arrhythmias. Alert and oriented upon arrival to the ER. No fever or chills. no cough. no dizziness. Reports his pain was mid chest, radiating to left shoulder, also some pain in the mid-back. This is all resolved. Onset: Today, Sudden Duration: Hour(s): (1) Location: Reports: Chest, Back Quality: Reports: Pressure Severity: Mild Improves with: Reports: Medication Worsens with: Reports: None Associated Symptoms: Reports: No Other Symptoms Left Upper Chest Pain Score (Numeric/FACES): 5 - Related Data Allergies Allergy/AdvReac Type Severity Reaction Status Date / Time caffeine Allergy Dizziness Verified 03/03/20 11:36 coffee (Coffea arabica) Allergy Headache Verified 03/03/20 11:36 nifedipine [From Procardia] AdvReac Mild Constipatio Verified 03/03/20 11:36 n Home Meds: Home Meds RX: Omeprazole 20 mg PO DAILY 05/26/15 [History] RX: atorvaSTATin [Lipitor] 80 mg PO BEDTIME 05/26/15 [History] RX: Metoprolol Succinate [Toprol XL] 50 mg PO DAILY 05/25/16 [History] RX: Furosemide 20 mg PO QAM 03/29/17 [History] RX: Metoclopramide HCl [Reglan] 10 mg PO QIDACANDBED 03/29/17 [History] RX: Tamsulosin HCl 0.4 mg PO DAILY 03/29/17 [History] RX: Insulin Pump Syringe, 3 mL [Minimed [place]] 1 each ASDIRECTED 04/04/17 [History] RX: Isosorbide Mononitrate [Isosorbide Mononitrate ER] 120 mg PO DAILY 09/09/17 [History] RX: Aspirin [Halfprin] 81 mg PO DAILY 12/03/19 [History] RX: Gabapentin [Neurontin] 300 mg PO BID 12/03/19 [History] RX: Losartan [Cozaar] 100 mg PO DAILY 12/03/19 [History] RX: Acetaminophen 1,000 mg PO Q6H PRN 12/08/19 [History] RX: Cyclobenzaprine [Flexeril] 10 mg PO TID PRN 12/08/19 [History] RX: Fluticasone/Umeclidin/Vilanter [Trelegy Ellipta 100-62.5-25] 1 each IH DAILY 12/08/19 [History] RX: Warfarin [Coumadin] 1 mg PO DAILY 12/08/19 [History] Dicyclomine HCl [Bentyl] 10 mg PO DAILY 04/10/20 [History] Furosemide [Lasix] 60 mg PO 1400 04/10/20 [History] RX: FLUoxetine [PROzac] 20 mg PO DAILY 04/10/20 [History] RX: Famotidine 40 mg PO BID 04/10/20 [History] RX: Melatonin 10 mg PO BEDTIME PRN 04/10/20 [History] RX: Mometasone/Formoterol [Dulera 200 MCG/5 MCG] 2 puff INH BID 04/10/20 [History] RX: Umeclidinium Brm/Vilanterol Tr [Anoro Ellipta 62.5-25 MCG] 1 puff INH DAILY 04/10/20 [History] Rizatriptan Benzoate [Rizatriptan] 10 mg PO DAILY 04/10/20 [History] Past Medical History - Past Health History Medical/Surgical History: Denies Medical/Surgical History HEENT History: Reports: Cataract, Impaired Vision, Other (See Below) Other HEENT History: Lu's esophagus Cardiovascular History: Reports: Afib, Angina, Automatic Implantable Cardioverter Defibrillators, High Cholesterol, Hypertension, Pacemaker, SOB on Exertion Other Cardiovascular History: Ablation in July,, angiogram 07/25/2017 Respiratory History: Reports: PE, Pneumonia, Recurrent, Sleep Apnea, SOB Other Respiratory History: wears a cpap at night Gastrointestinal History: Reports: Bowel Obstruction, Chronic Constipation, GERD, Other (See Below) Other Gastrointestinal History: duodenal ulcer Genitourinary History: Reports: Renal Calculus, Other (See Below) Other Genitourinary History: prostate stent placed 10/01/2016 Musculoskeletal History: Reports: Back Pain, Chronic Other Musculoskeletal History: Neck pain causing migraines Neurological History: Reports: Migraines Other Neuro History: Patient had vertebrae in neck fused. Resolved some or most of headaches. Psychiatric History: Reports: Depression, Emotional Problems Endocrine/Metabolic History: Reports: Diabetes, Type II, Obesity/BMI 30+ Other Endocrine/Metabolic History: pt has insulin pump Hematologic History: Reports: B12 Deficiency, Blood Transfusion(s) Oncologic (Cancer) History: Reports: None Dermatologic History: Reports: Other (See Below) Other Dermatologic History: Had pre-cancer lesion removed to R arm. Has lesion to L wrist. - Infectious Disease History Infectious Disease History: Reports: Chicken Pox, Measles, Rubella - Past Surgical History HEENT Surgical History: Reports: Tonsillectomy Cardiovascular Surgical History: Reports: Cardiac Ablation, Pacer Respiratory Surgical History: Reports: None GI Surgical History: Reports: Colonoscopy, Hernia, Inguinal, Other (See Below) Male Surgical History: Reports: Kidney Stone Extraction, Lithotripsy ([facility]) Endocrine Surgical History: Reports: None Neurological Surgical History: Reports: C-Spine, Spinal Fusion Musculoskeletal Surgical History: Reports: Knee Replacement Social & Family History - Family History Family Medical History: No Pertinent Family History HEENT: Reports: Cataract Cardiac: Reports: OK Respiratory: Reports: COPD GI: Reports: None : Reports: None Endocrine/Metabolic: Reports: Diabetes, type II Oncologic: Reports: Brain, Colon, Lung - Caffeine Use Caffeine Use: Reports: None Other Caffeine Use: diet coke - 3-4 cans /day - Living Situation & Occupation Living situation: Reports: Occupation: Unemployed ED ROS GENERAL - Review of Systems Review Of Systems: Comprehensive ROS is negative, except as noted in HPI. Constitutional: Reports: No Symptoms. Denies: Fever, Chills, Malaise HEENT: Reports: No Symptoms Respiratory: Reports: Shortness of Breath. Denies: Cough, Sputum Cardiovascular: Reports: Chest Pain, Palpitations Endocrine: Reports: No Symptoms GI/Abdominal: Reports: No Symptoms : Reports: No Symptoms Musculoskeletal: Reports: No Symptoms Skin: Reports: No Symptoms Psychiatric: Reports: No Symptoms ED EXAM, GENERAL - Physical Exam Exam: See Below Exam Limited By: No Limitations General Appearance: Alert, WD/WN, No Apparent Distress Nose: Normal Inspection Throat/Mouth: Normal Inspection Respiratory/Chest: No Respiratory Distress, Lungs Clear, Normal Breath Sounds Cardiovascular: Normal Peripheral Pulses, Regular Rate, Rhythm, Other (mild b/l pitting edema) GI/Abdominal: Normal Bowel Sounds, Soft, Non-Tender, Other (obese) Neurological: Alert, Oriented, No Motor/Sensory Deficits Psychiatric: Normal Affect, Normal Mood Skin Exam: Warm, Dry Course - Vital Signs Last Recorded V/S: Last Vital Signs Temp 36.4 C 05/25/20 18:53 Pulse 78 05/25/20 20:34 Resp 22 H 05/25/20 20:34 BP 118/62 05/25/20 20:34 Pulse Ox 97 05/25/20 20:34 Orthostatic Blood Pressure [ 133/60 Standing] Orthostatic Blood Pressure [ 139/58 Sitting] Orthostatic Blood Pressure [ 126/62 Supine] - Orders/Labs/Meds Orders: Active Orders 24 hr Category Date Time Status Cardiac Monitoring [RC] .As Directed Care 05/25/20 18:38 Active EKG Documentation Completion [RC] ASDIRECTED Care 05/25/20 18:38 Active Orthostatic Vital Signs [RC] ASDIRECTED Care 05/25/20 18:38 Active Chest 1V Frontal [CR] Stat Exams 05/25/20 18:38 Taken TROPONIN I [CHEM] Timed Lab 05/25/20 21:00 Ordered Labs: Laboratory Tests 05/25/20 05/25/20 Range/Units 18:45 18:45 WBC 10.6 (4.0-11.0) K/uL RBC 4.75 (4.50-6.50) M/uL Hgb 13.4 (13.0-18.0) g/dL Hct 41.1 (40.0-54.0) % MCV 87 (76-96) fL MCH 28.2 (27.0-32.0) pg MCHC 32.6 (31.0-35.0) g/dL RDW 15.6 (11.0-16.0) % Plt Count 175 (150-400) K/uL MPV 11.9 H (6.0-10.0) fL Neut % (Auto) 58.9 (45.0-70.0) % Lymph % (Auto) 31.8 (20.0-40.0) % [place] % (Auto) 8.0 (3.0-10.0) % Eos % (Auto) 0.9 L (1.0-5.0) % Baso % (Auto) 0.4 (0.0-0.5) % Neut # (Auto) 6.23 (2.00-7.50) K/uL Lymph # (Auto) 3.36 (1.50-4.00) K/uL [place] # (Auto) 0.85 H (0.20-0.80) K/uL Eos # (Auto) 0.10 (0.04-0.40) K/uL Baso # (Auto) 0.04 (0.02-0.10) K/uL Sodium 141 (136-145) mmol/L Potassium 3.8 (3.5-5.1) mmol/L Chloride 104 (98-107) mmol/L Carbon Dioxide 23.3 D (21.0-32.0) mmol/L Anion Gap 17.5 H (5.0-15.0) mmol/L BUN 27 H (8-26) mg/dL Creatinine 1.76 H (0.70-1.30) mg/dL Est Cr Clr Drug Dosing TNP Estimated GFR (MDRD) 38 L (>60) MLS/MIN BUN/Creatinine Ratio 15.3 (6-25) Glucose 219 H D (74-100) mg/dL Calcium 8.6 (8.5-10.1) mg/dL Troponin I < 0.017 (0.000-0.060) ng/mL Meds: Medications Discontinued Medications Generic Name Dose Route Start Last Admin Trade Name Freq PRN Reason Stop Dose Admin Al Hydroxide/Mg Hydroxide 30 ml 05/25/20 19:22 05/25/20 19:37 Gi Cocktail PO 05/25/20 19:23 30 ml ONETIME ONE Administration Morphine Sulfate 4 mg 05/25/20 20:06 05/25/20 20:06 Morphine IVPUSH 05/25/20 20:07 4 mg ONETIME ONE Administration Nitroglycerin 0.4 mg 05/25/20 19:22 05/25/20 19:24 Nitrostat SL 05/25/20 19:23 0.4 mg ONETIME ONE Administration - Re-Assessments/Exams Free Text/Narrative Re-Assessment/Exam: 05/25/20 19:04 EKG - NSR, no acute ischemic changes, no PIOTR 05/25/20 20:46 labs were ordered - normal trop vitals WNL chest pain was controlled with nitro SL and morphine 4 mg IV given the symptoms and patient risk factors ( obesity, DM and HTN ) - decision to admit patient to observation for trop trend Departure - Departure Time of Disposition: 20:45 Disposition: Refer to Observation Condition: Fair Clinical Impression: Chest pain Qualifiers: Chest pain type: unspecified Qualified Code(s): R07.9 - Chest pain, unspecified - Discharge Information *PRESCRIPTION DRUG MONITORING PROGRAM REVIEWED*: Not Applicable *COPY OF PRESCRIPTION DRUG MONITORING REPORT IN PATIENT KAVON: Not Applicable Forms: ED Department Discharge Sepsis Event Note (ED) - Focused Exam Vital Signs: Vital Signs Temp Pulse Resp BP BP Pulse Ox 05/25/20 20:34 78 22 H 118/62 97 05/25/20 19:41 69 18 104/59 L 97 05/25/20 19:31 75 18 104/61 97 05/25/20 19:24 77 20 133/60 110/57 L 97 05/25/20 18:53 36.4 C 80 18 131/61 97 - Problem List & Annotations (1) Chest pain SNOMED Code(s): 74105481 Code(s): R07.9 - CHEST PAIN, UNSPECIFIED Status: Acute Qualifiers: Chest pain type: unspecified Qualified Code(s): R07.9 - Chest pain, unspecified - Problem List Review Problem List Initiated/Reviewed/Updated: Yes - My Orders Last 24 Hours: My Active Orders 05/25/20 18:38 Cardiac Monitoring [RC] .As Directed EKG Documentation Completion [RC] ASDIRECTED Orthostatic Vital Signs [RC] ASDIRECTED Chest 1V Frontal [CR] Stat 05/25/20 21:00 TROPONIN I [CHEM] Timed - Assessment/Plan Last 24 Hours: My Active Orders 05/25/20 18:38 Cardiac Monitoring [RC] .As Directed EKG Documentation Completion [RC] ASDIRECTED Orthostatic Vital Signs [RC] ASDIRECTED Chest 1V Frontal [CR] Stat 05/25/20 21:00 TROPONIN I [CHEM] Timed
[2020-05-25] MEDS ORDERED: Nitroglycerin 0.4 MG Tab.SL SL ONE (19:22)
[2020-05-25] MEDS ORDERED: GI Cocktail Oral Solution 30 ML PO ONE (19:22)
[2020-05-25] MEDS ORDERED: Morphine 4 MG/ML VIAL IVPUSH ONE (20:06)
[2020-05-25] MEDS ORDERED: Acetaminophen 500 MG Tab PO PRN (20:57)
[2020-05-25] MEDS ORDERED: Cyclobenzaprine 10 MG Tab PO PRN (20:57)
[2020-05-25] MEDS ORDERED: Non-Formulary Medication 1 Each (Melatonin [Melatonin] 10 MG) PO PRN (20:57)
[2020-05-25] MEDS ORDERED: INSULIN PUMP MC SCH (21:00)
[2020-05-25] MEDS ORDERED: atorvaSTATin 20 MG Tab PO SCH (23:00)
[2020-05-25] MEDS ORDERED: Melatonin 10 MG Cap PO PRN (23:00)
[2020-05-25] MEDS: Gabapentin 300 MG Cap PO SCH (23:07)
[2020-05-25] MEDS: Metoclopramide 10 MG Tab PO SCH (23:07)
[2020-05-25] MEDS: Famotidine 20 MG Tab PO SCH (23:07)
--- NOTE | 2020-05-26 02:15 | CR ---
DATE OF SERVICE: 05/25/2020 CLINICAL DATA: Chest Pain AP CHEST: Comparison made to a prior exam dated 04/08/2020. The cardiac pacer and pacer wires remain unchanged in position. The heart size is normal. There are linear densities in both lung bases consistent with linear atelectasis or fibrosis. The lungs are otherwise clear. No pneumothorax. No pleural effusions. [id number] [facility]
[2020-05-26] MEDS ORDERED: Aspirin 81 MG Tab.EC PO SCH (08:00)
[2020-05-26] MEDS ORDERED: FLUoxetine 10 MG Cap PO SCH (08:00)
[2020-05-26] MEDS ORDERED: Metoprolol Succinate 25 MG Tab.ER PO SCH (08:00)
[2020-05-26] MEDS ORDERED: Omeprazole 20 MG Cap.CR PO SCH ×2 (08:00→20:00)
[2020-05-26] MEDS ORDERED: RIZATRIPTAN BENZOATE 10 MG PO SCH (08:00)
[2020-05-26] MEDS ORDERED: Losartan 50 MG Tab PO SCH (08:00)
[2020-05-26] MEDS ORDERED: Dicyclomine 10 MG Cap PO SCH (08:00)
[2020-05-26] MEDS ORDERED: Non-Formulary Medication 1 Each (Fluticasone/Umeclidin/Vilanter [Trelegy Ellipta 100-62.5- IH SCH (08:00)
[2020-05-26] MEDS ORDERED: Furosemide 40 MG Tab PO SCH ×2 (08:00→14:00)
[2020-05-26] MEDS ORDERED: Isosorbide Mononitrate 60 MG Tab.ER PO SCH (08:00)
[2020-05-26] MEDS ORDERED: Tamsulosin 0.4 MG Cap.ER PO SCH (08:00)
[2020-05-26] MEDS: Famotidine 20 MG Tab PO SCH (08:17)
[2020-05-26] MEDS: Metoclopramide 10 MG Tab PO SCH (08:17)
[2020-05-26] MEDS: Gabapentin 300 MG Cap PO SCH (08:29)
--- NOTE | 2020-05-26 09:43 | PCM.DCSUM1 ---
Discharge Summary - Hospital Course Brief History: patient with a h/o obesity, DM and HTN who presented to the ER with a c/o left sided chest pain. EKG and trop upon arrival were WNL. but given his symptoms, he was admitted to observation for trop trend. He underernt an angiogram a week ago (per his report ) which was negative and didn't need any stents. Trop [place] x3 while hospitalized were WNL. Ambulating without distress and tolerated breakfast. h/o PUD and acid reflux for which he is on PPI and reglan. His current symptoms are propably related to Acid reflux disease. He is scheduled on the Jun 14 to undergo a GI work and EGD. Diagnosis: Stroke: No Modified [place] Scale: Mod.Disablility Requiring Some Help,Able to Walk Without Assistance Modified [place] Scale Score: 3 - Discharge Data Discharge Date: 05/26/20 Discharge Disposition: Home, Self-Care 01 Condition: Good - Referral to Home Health Primary Care Physician: PCP None - Discharge Diagnosis/Problem(s) (1) Chest pain SNOMED Code(s): 46695611 ICD Code: R07.9 - CHEST PAIN, UNSPECIFIED Status: Acute Priority: Low Current Visit: No Qualifiers: Chest pain type: unspecified Qualified Code(s): R07.9 - Chest pain, unspecified - Patient Instructions Diet: Heart Healthy Diet Diet, Other: heart healthy Activity: As Tolerated Showering/Bathing: October Shower - Discharge Plan *PRESCRIPTION DRUG MONITORING PROGRAM REVIEWED*: Not Applicable *COPY OF PRESCRIPTION DRUG MONITORING REPORT IN PATIENT KAVON: Not Applicable Home Medications: Home Meds Omeprazole 20 mg PO DAILY 05/26/15 [History] atorvaSTATin [Lipitor] 80 mg PO BEDTIME 05/26/15 [History] Metoprolol Succinate [Toprol XL] 50 mg PO DAILY 05/25/16 [History] Furosemide 20 mg PO QAM 03/29/17 [History] Metoclopramide HCl [Reglan] 10 mg PO QIDACANDBED 03/29/17 [History] Tamsulosin HCl 0.4 mg PO DAILY 03/29/17 [History] Insulin Pump Syringe, 3 mL [Minimed [place]] 1 each MC ASDIRECTED 04/04/17 [History] Isosorbide Mononitrate [Isosorbide Mononitrate ER] 120 mg PO DAILY 09/09/17 [History] Aspirin [Halfprin] 81 mg PO DAILY 12/03/19 [History] Gabapentin [Neurontin] 300 mg PO BID 12/03/19 [History] Losartan [Cozaar] 100 mg PO DAILY 12/03/19 [History] Acetaminophen 1,000 mg PO Q6H PRN 12/08/19 [History] Cyclobenzaprine [Flexeril] 10 mg PO TID PRN 12/08/19 [History] Fluticasone/Umeclidin/Vilanter [Trelegy Ellipta 100-62.5-25] 1 each IH DAILY 12/08/19 [History] Warfarin [Coumadin] 1 mg PO DAILY 12/08/19 [History] Dicyclomine HCl [Bentyl] 10 mg PO DAILY 04/10/20 [History] FLUoxetine [PROzac] 20 mg PO DAILY 04/10/20 [History] Famotidine 40 mg PO BID 04/10/20 [History] Furosemide [Lasix] 60 mg PO 1400 04/10/20 [History] Melatonin 10 mg PO BEDTIME PRN 04/10/20 [History] Mometasone/Formoterol [Dulera 200 MCG/5 MCG] 2 puff INH BID 04/10/20 [History] Rizatriptan Benzoate [Rizatriptan] 10 mg PO DAILY 04/10/20 [History] Umeclidinium Brm/Vilanterol Tr [Anoro Ellipta 62.5-25 MCG] 1 puff INH DAILY 04/10/20 [History] Patient Handouts: Nonspecific Chest Pain, Adult Forms: ED Department Discharge Referrals: PCP,None [Primary Care Provider] - - Discharge Summary/Plan Comment DC Time >30 min.: Yes Discharge Summary/Plan Comment: - continue home medications as before - follow up with your PCP in 5-7 days - return to the ER if symptoms got worse or any concerns - recommend weight reduction. Start with 3-5 lbs per month. - continue with anti acid medications - Patient Data Vitals - Most Recent: Last Vital Signs Temp 36.6 C 05/26/20 04:00 Pulse 67 05/26/20 08:29 Resp 18 05/26/20 04:00 BP 133/64 05/26/20 08:29 Pulse Ox 95 05/26/20 04:00 Orthostatic Blood Pressure [ 133/60 Standing] Orthostatic Blood Pressure [ 139/58 Sitting] Orthostatic Blood Pressure [ 126/62 Supine] Weight - Most Recent: 133.356 kg Lab Results - Last 24 hrs: Laboratory Results - last 24 hr 05/25/20 05/25/20 05/25/20 Range/Units 18:45 18:45 21:30 WBC 10.6 (4.0-11.0) K/uL RBC 4.75 (4.50-6.50) M/uL Hgb 13.4 (13.0-18.0) g/dL Hct 41.1 (40.0-54.0) % MCV 87 (76-96) fL MCH 28.2 (27.0-32.0) pg MCHC 32.6 (31.0-35.0) g/dL RDW 15.6 (11.0-16.0) % Plt Count 175 (150-400) K/uL MPV 11.9 H (6.0-10.0) fL Neut % (Auto) 58.9 (45.0-70.0) % Lymph % (Auto) 31.8 (20.0-40.0) % [place] % (Auto) 8.0 (3.0-10.0) % Eos % (Auto) 0.9 L (1.0-5.0) % Baso % (Auto) 0.4 (0.0-0.5) % Neut # (Auto) 6.23 (2.00-7.50) K/uL Lymph # (Auto) 3.36 (1.50-4.00) K/uL [place] # (Auto) 0.85 H (0.20-0.80) K/uL Eos # (Auto) 0.10 (0.04-0.40) K/uL Baso # (Auto) 0.04 (0.02-0.10) K/uL Sodium 141 (136-145) mmol/L Potassium 3.8 (3.5-5.1) mmol/L Chloride 104 (98-107) mmol/L Carbon Dioxide 23.3 D (21.0-32.0) mmol/L Anion Gap 17.5 H (5.0-15.0) mmol/L BUN 27 H (8-26) mg/dL Creatinine 1.76 H (0.70-1.30) mg/dL Est Cr Clr Drug Dosing TNP Estimated GFR (MDRD) 38 L (>60) MLS/MIN BUN/Creatinine Ratio 15.3 (6-25) Glucose 219 H D (74-100) mg/dL Calcium 8.6 (8.5-10.1) mg/dL Troponin I < 0.017 < 0.017 (0.000-0.060) ng/mL SARS-CoV-2 RNA ([place]) (NEGATIVE) 05/25/20 05/26/20 Range/Units 21:30 07:15 WBC (4.0-11.0) K/uL RBC (4.50-6.50) M/uL Hgb (13.0-18.0) g/dL Hct (40.0-54.0) % MCV (76-96) fL MCH (27.0-32.0) pg MCHC (31.0-35.0) g/dL RDW (11.0-16.0) % Plt Count (150-400) K/uL MPV (6.0-10.0) fL Neut % (Auto) (45.0-70.0) % Lymph % (Auto) (20.0-40.0) % [place] % (Auto) (3.0-10.0) % Eos % (Auto) (1.0-5.0) % Baso % (Auto) (0.0-0.5) % Neut # (Auto) (2.00-7.50) K/uL Lymph # (Auto) (1.50-4.00) K/uL [place] # (Auto) (0.20-0.80) K/uL Eos # (Auto) (0.04-0.40) K/uL Baso # (Auto) (0.02-0.10) K/uL Sodium (136-145) mmol/L Potassium (3.5-5.1) mmol/L Chloride (98-107) mmol/L Carbon Dioxide (21.0-32.0) mmol/L Anion Gap (5.0-15.0) mmol/L BUN (8-26) mg/dL Creatinine (0.70-1.30) mg/dL Est Cr Clr Drug Dosing Estimated GFR (MDRD) (>60) MLS/MIN BUN/Creatinine Ratio (6-25) Glucose (74-100) mg/dL Calcium (8.5-10.1) mg/dL Troponin I < 0.017 (0.000-0.060) ng/mL SARS-CoV-2 RNA ([place]) Negative (NEGATIVE) Med Orders - Current: Current Medications Acetaminophen (Tylenol Extra Strength) 1,000 mg PO Q6H PRN PRN Reason: Pain Aspirin (Halfprin) 81 mg PO DAILY [facility] Last Admin: 05/26/20 08:16 Dose: 81 mg Documented by: Atorvastatin Calcium (Lipitor) 80 mg PO BEDTIME [facility] Last Admin: 05/25/20 23:06 Dose: 80 mg Documented by: Cyclobenzaprine HCl (Flexeril) 10 mg PO TID PRN PRN Reason: Pain Dicyclomine HCl (Bentyl) 10 mg PO DAILY [facility] Famotidine (Pepcid) 40 mg PO BID [facility] Last Admin: 05/26/20 08:17 Dose: 40 mg Documented by: Fluoxetine HCl (Prozac) 20 mg PO DAILY [facility] Last Admin: 05/26/20 08:28 Dose: 20 mg Documented by: Furosemide (Lasix) 20 mg PO QAM [facility] Last Admin: 05/26/20 08:31 Dose: 20 mg Documented by: Furosemide (Lasix) 60 mg PO 1400 [facility] Gabapentin (Neurontin) 300 mg PO BID [facility] Last Admin: 05/26/20 08:29 Dose: 300 mg Documented by: Isosorbide Mononitrate (Imdur) 120 mg PO DAILY [facility] Last Admin: 05/26/20 08:28 Dose: 120 mg Documented by: Losartan Potassium (Cozaar) 100 mg PO DAILY [facility] Last Admin: 05/26/20 08:28 Dose: 100 mg Documented by: Melatonin (Melatonin) 10 mg PO BEDTIME PRN PRN Reason: Insomnia Last Admin: 05/25/20 23:07 Dose: 10 mg Documented by: Metoclopramide HCl (Reglan) 10 mg PO QIDACANDBED [facility] Last Admin: 05/26/20 08:17 Dose: 10 mg Documented by: Metoprolol Succinate (Toprol Xl) 50 mg PO DAILY [facility] Last Admin: 05/26/20 08:29 Dose: 50 mg Documented by: Non-Formulary Medication (Fluticasone/Umeclidin/Vilanter [Trelegy Ellipta 100-62.5-25]) 1 each DAILY [facility] Non-Formulary Medication (Insulin Pump Syringe, 3 Ml [Minimed [place]]) 1 each ASDIRECTED [facility] Non-Formulary Medication (Rizatriptan Benzoate [Rizatriptan]) 10 mg PO DAILY [facility] Omeprazole (Omeprazole) 20 mg PO DAILY [facility] Last Admin: 05/26/20 08:29 Dose: 20 mg Documented by: Tamsulosin HCl (Flomax) 0.4 mg PO DAILY [facility] Last Admin: 05/26/20 08:29 Dose: 0.4 mg Documented by: Warfarin Sodium (Coumadin) 1 mg PO DAILY [facility] Last Admin: 05/26/20 08:29 Dose: 1 mg Documented by: Discontinued Medications Al Hydroxide/Mg Hydroxide (Gi Cocktail) 30 ml PO ONETIME ONE Stop: 05/25/20 19:23 Last Admin: 05/25/20 19:37 Dose: 30 ml Documented by: Morphine Sulfate (Morphine) 4 mg IVPUSH ONETIME ONE Stop: 05/25/20 20:07 Last Admin: 05/25/20 20:06 Dose: 4 mg Documented by: Nitroglycerin (Nitrostat) 0.4 mg SL ONETIME ONE Stop: 05/25/20 19:23 Last Admin: 05/25/20 19:24 Dose: 0.4 mg Documented by: Non-Formulary Medication (Melatonin [Melatonin]) 10 mg PO BEDTIME PRN PRN Reason: Insomnia
[2020-05-26 10:46] VITALS: BP 127/79; PULSE 70
== END 2020-05-26 10:25 | disposition home or self-care (01) ==
LOC: LB.ED 17:43 → LB.MS 20:23
PROVIDERS: ADMIT Surgery; ATTEND Surgery
DX: R07.9 Chest pain, unspecified (principal); I48.92 Unspecified atrial flutter; E78.00 Pure hypercholesterolemia, unspecified; I10 Essential (primary) hypertension; G43.909 Migraine, unspecified, not intractable, without status migrainosus; F32.9 Major depressive disorder, single episode, unspecified; E11.9 Type 2 diabetes mellitus without complications; E53.8 Deficiency of other specified B group vitamins; J44.9 Chronic obstructive pulmonary disease, unspecified; Z20.828 Contact with and (suspected) exposure to other viral communicable diseases; Z88.8 Allergy status to other drugs, medicaments and biological substances; Z79.899 Other long term (current) drug therapy; Z79.82 Long term (current) use of aspirin; Z79.02 Long term (current) use of antithrombotics/antiplatelets; Z95.810 Presence of automatic (implantable) cardiac defibrillator; Z79.4 Long term (current) use of insulin; Z98.890 Other specified postprocedural states; Z68.39 Body mass index [BMI] 39.0-39.9, adult
CPT/HCPCS: 36415; 71045; 80048; 84484; 85025; 93005; 96374; 99285-25; A9270-GY; G0378; J2270; U0002

== ENCOUNTER 2020-09-02 18:48 | Inpatient (IN) | payer MEDICARE ==
[~2020-09-02 18:48] MED LIST changes: +Insulin Regular, Human 100 Units/ML 3 ML Vial ONE; -Sodium Chloride 0.9% 1,000 ML IV SCH
[2020-09-02] MEDS ORDERED: Sodium Chloride 0.9% 10 ML Syringe FLUSH PRN (19:14)
--- NOTE | 2020-09-02 19:38 | EDM.PDOC ---
ED HPI GENERAL MEDICAL PROBLEM - General Chief Complaint: General Stated Complaint: DIZZY Time Seen by Provider: 09/02/20 19:15 Source of Information: Reports: Patient History Limitations: Reports: No Limitations - History of Present Illness INITIAL COMMENTS - FREE TEXT/NARRATIVE: patient presented to the ER with a c/o dizziness for the last 1 day. h/o HTN, morbid obesity, palpitation s/p pacemaker and other significant comorbidities. He reports that he doesn't usually move around, just from the recliner to the bathroom,,, he is usually SOB on exertion, but today he has been feeling dizzy and describing '' the ground is spinning around me ''. Denies vision changes, weakness or numbness. Also denies changes in speech. h/o multiple TIAs in the past. h/o diabetes, on insulin bump, reports that his blood sugar has been high and elevated lately to 400's. Not his usual. Also has been urinating more frequent. Onset: Today - Related Data Allergies Allergy/AdvReac Type Severity Reaction Status Date / Time caffeine Allergy Dizziness Verified 03/03/20 11:36 coffee (Coffea arabica) Allergy Headache Verified 03/03/20 11:36 nifedipine [From Procardia] AdvReac Mild Constipatio Verified 03/03/20 11:36 n Home Meds: Home Meds Omeprazole 20 mg PO DAILY 05/26/15 [History] atorvaSTATin [Lipitor] 80 mg PO BEDTIME 05/26/15 [History] Metoprolol Succinate [Toprol XL] 50 mg PO DAILY 05/25/16 [History] Furosemide 20 mg PO QAM 03/29/17 [History] Metoclopramide HCl [Reglan] 10 mg PO QIDACANDBED 03/29/17 [History] Tamsulosin HCl 0.4 mg PO DAILY 03/29/17 [History] Insulin Pump Syringe, 3 mL [Minimed Bude] 1 each MC ASDIRECTED 04/04/17 [History] Isosorbide Mononitrate [Isosorbide Mononitrate ER] 120 mg PO DAILY 09/09/17 [History] Aspirin [Halfprin] 81 mg PO DAILY 12/03/19 [History] Gabapentin [Neurontin] 300 mg PO BID 12/03/19 [History] Losartan [Cozaar] 100 mg PO DAILY 12/03/19 [History] Acetaminophen 1,000 mg PO Q6H PRN 12/08/19 [History] Cyclobenzaprine [Flexeril] 10 mg PO TID PRN 12/08/19 [History] Fluticasone/Umeclidin/Vilanter [Trelegy Ellipta 100-62.5-25] 1 each IH DAILY 12/08/19 [History] Warfarin [Coumadin] 1 mg PO DAILY 12/08/19 [History] Dicyclomine HCl [Bentyl] 10 mg PO DAILY 04/10/20 [History] FLUoxetine [PROzac] 20 mg PO DAILY 04/10/20 [History] Famotidine 40 mg PO BID 04/10/20 [History] Furosemide [Lasix] 60 mg PO 1400 04/10/20 [History] Melatonin 10 mg PO BEDTIME PRN 04/10/20 [History] Mometasone/Formoterol [Dulera 200 MCG/5 MCG] 2 puff INH BID 04/10/20 [History] Rizatriptan Benzoate [Rizatriptan] 10 mg PO DAILY 04/10/20 [History] Umeclidinium Brm/Vilanterol Tr [Anoro Ellipta 62.5-25 MCG] 1 puff INH DAILY 04/10/20 [History] Past Medical History - Past Health History Medical/Surgical History: Denies Medical/Surgical History HEENT History: Reports: Cataract, Impaired Vision, Other (See Below) Other HEENT History: Lu's esophagus Cardiovascular History: Reports: Afib, Angina, Automatic Implantable Cardioverter Defibrillators, High Cholesterol, Hypertension, Pacemaker, SOB on Exertion Other Cardiovascular History: Ablation in July,, angiogram 07/25/2017 Respiratory History: Reports: PE, Pneumonia, Recurrent, Sleep Apnea, SOB Other Respiratory History: wears a cpap at night Gastrointestinal History: Reports: Bowel Obstruction, Chronic Constipation, GERD, Other (See Below) Other Gastrointestinal History: duodenal ulcer Genitourinary History: Reports: Renal Calculus, Other (See Below) Other Genitourinary History: prostate stent placed 10/01/2016 Musculoskeletal History: Reports: Back Pain, Chronic Other Musculoskeletal History: Neck pain causing migraines Neurological History: Reports: Migraines Other Neuro History: Patient had vertebrae in neck fused. Resolved some or most of headaches. Psychiatric History: Reports: Depression, Emotional Problems Endocrine/Metabolic History: Reports: Diabetes, Type II, Obesity/BMI 30+ Other Endocrine/Metabolic History: pt has insulin pump Hematologic History: Reports: B12 Deficiency, Blood Transfusion(s) Oncologic (Cancer) History: Reports: None Dermatologic History: Reports: Other (See Below) Other Dermatologic History: Had pre-cancer lesion removed to R arm. Has lesion to L wrist. - Infectious Disease History Infectious Disease History: Reports: Chicken Pox, Measles, Rubella - Past Surgical History Head Surgeries/Procedures: Reports: None HEENT Surgical History: Reports: Tonsillectomy Other HEENT Surgeries/Procedures: C3 and C4 fusion- 2014 Cardiovascular Surgical History: Reports: Cardiac Ablation, Pacer Other Cardiovascular Surgeries/Procedures: Ablation in 2014 Respiratory Surgical History: Reports: None GI Surgical History: Reports: Colonoscopy, Hernia, Inguinal, Other (See Below) Other GI Surgeries/Procedures: laproscopic sx for infestigation of constipation issues Male Surgical History: Reports: Kidney Stone Extraction, Lithotripsy ([facility]) Endocrine Surgical History: Reports: None Neurological Surgical History: Reports: C-Spine, Spinal Fusion Other Neurological Surgeries/Procedures: Woke this Am with CARDONA - currently rates at 9.5/10 Musculoskeletal Surgical History: Reports: Knee Replacement Other Musculoskeletal Surgeries/Procedures:: C3-4 vertebral fusion Social & Family History - Family History Family Medical History: No Pertinent Family History HEENT: Reports: Cataract Cardiac: Reports: [place] Respiratory: Reports: COPD GI: Reports: None : Reports: None Endocrine/Metabolic: Reports: Diabetes, type II Oncologic: Reports: Brain, Colon, Lung - Caffeine Use Caffeine Use: Reports: None Other Caffeine Use: diet coke - 3-4 cans /day - Living Situation & Occupation Living situation: Reports: Occupation: Unemployed ED ROS GENERAL - Review of Systems Review Of Systems: See Below Constitutional: Reports: No Symptoms HEENT: Reports: No Symptoms Respiratory: Reports: Shortness of Breath Cardiovascular: Reports: Dyspnea on Exertion, Lightheadedness, Orthopnea, Palpitations Endocrine: Reports: No Symptoms GI/Abdominal: Reports: No Symptoms Musculoskeletal: Reports: Back Pain Skin: Reports: No Symptoms Neurological: Reports: No Symptoms Psychiatric: Reports: No Symptoms ED EXAM, GENERAL - Physical Exam Exam: See Below Exam Limited By: No Limitations General Appearance: Alert, WD/WN, No Apparent Distress Eye Exam: Bilateral Eye: PERRL Respiratory/Chest: No Respiratory Distress, Lungs Clear, Chest Non-Tender Cardiovascular: Normal Peripheral Pulses GI/Abdominal: Normal Bowel Sounds, Soft, Non-Tender Back Exam: Normal Inspection Extremities: Normal Inspection Neurological: Alert, Oriented, No Motor/Sensory Deficits #1 Interpretation EKG Date: 09/02/20 Rhythm: NSR [place]: Normal P-Wave: Present QRS: RBBB ST-T: Normal QT: Normal Course - Vital Signs Last Recorded V/S: Last Vital Signs Temp 36.6 C 09/02/20 19:05 Pulse 81 09/02/20 20:35 Resp 18 09/02/20 20:35 BP 142/68 H 09/02/20 20:35 Pulse Ox 95 09/02/20 20:35 - Orders/Labs/Meds Orders: Active Orders 24 hr Category Date Time Status EKG Documentation Completion [RC] ASDIRECTED Care 09/02/20 19:14 Active Head wo Cont [CT] Stat Exams 09/02/20 19:38 Taken CORONAVIRUS COVID-19 ASHLEY [MOLEC] Stat Lab 09/02/20 21:01 Received Sodium Chloride 0.9% @ 150 MLS/HR (1000ml) Med 09/02/20 21:30 Ordered Sodium Chloride 0.9% [Normal Saline] 1,000 ml IV ASDIRECTED Sodium Chloride 0.9% [Saline Flush] Med 09/02/20 19:14 Active 10 ml FLUSH ASDIRECTED PRN Saline Lock Insert [OM.PC] Routine Oth 09/02/20 19:14 Ordered Medication Orders Sodium Chloride (Sodium Chloride 0.9% 10 Ml Syringe) 10 ml FLUSH ASDIRECTED PRN PRN Reason: Keep Vein Open Labs: Laboratory Tests 09/02/20 09/02/20 09/02/20 Range/Units 19:34 19:35 19:36 WBC 9.9 (4.0-11.0) K/uL RBC 4.47 L (4.50-6.50) M/uL Hgb 13.2 (13.0-18.0) g/dL Hct 38.5 L (40.0-54.0) % MCV 86 (76-96) fL MCH 29.5 (27.0-32.0) pg MCHC 34.3 (31.0-35.0) g/dL RDW 13.9 (11.0-16.0) % Plt Count 192 (150-400) K/uL MPV 11.9 H (6.0-10.0) fL PT (9.0-11.5) sec INR (1.0-3.5) Sodium 134 L (136-145) mmol/L Potassium 3.4 L (3.5-5.1) mmol/L Chloride 93 L (98-107) mmol/L Carbon Dioxide 28.3 D (21.0-32.0) mmol/L Anion Gap 16.1 H (5.0-15.0) mmol/L BUN 36 H D (8-26) mg/dL Creatinine 1.92 H (0.70-1.30) mg/dL Est Cr Clr Drug Dosing TNP Estimated GFR (MDRD) 35 L (>60) MLS/MIN BUN/Creatinine Ratio 18.8 (6-25) Glucose 511 H* D (74-100) mg/dL Hemoglobin A1c (< 5.7) % Calcium 8.6 (8.5-10.1) mg/dL Phosphorus 3.1 (2.5-4.9) mg/dL Magnesium 2.1 (1.8-2.4) mg/dL Troponin I < 0.017 (0.000-0.060) ng/mL B-Natriuretic Peptide 159 H D (0-125) pg/mL 09/02/20 09/02/20 Range/Units 19:36 19:43 WBC (4.0-11.0) K/uL RBC (4.50-6.50) M/uL Hgb (13.0-18.0) g/dL Hct (40.0-54.0) % MCV (76-96) fL MCH (27.0-32.0) pg MCHC (31.0-35.0) g/dL RDW (11.0-16.0) % Plt Count (150-400) K/uL MPV (6.0-10.0) fL PT 24.5 H D (9.0-11.5) sec INR 2.4 D (1.0-3.5) Sodium (136-145) mmol/L Potassium (3.5-5.1) mmol/L Chloride (98-107) mmol/L Carbon Dioxide (21.0-32.0) mmol/L Anion Gap (5.0-15.0) mmol/L BUN (8-26) mg/dL Creatinine (0.70-1.30) mg/dL Est Cr Clr Drug Dosing Estimated GFR (MDRD) (>60) MLS/MIN BUN/Creatinine Ratio (6-25) Glucose (74-100) mg/dL Hemoglobin A1c 9.6 H (< 5.7) % Calcium (8.5-10.1) mg/dL Phosphorus (2.5-4.9) mg/dL Magnesium (1.8-2.4) mg/dL Troponin I (0.000-0.060) ng/mL B-Natriuretic Peptide (0-125) pg/mL Meds: Medications Generic Name Dose Route Start Last Admin Trade Name Freq PRN Reason Stop Dose Admin Sodium Chloride 10 ml 09/02/20 19:14 Sodium Chloride 0.9% 10 Ml Syringe FLUSH ASDIRECTED PRN Keep Vein Open - Re-Assessments/Exams Free Text/Narrative Re-Assessment/Exam: was connected to a monitor vitals were obtained - stable EKG - no acute ischemic changes, no arrhythmias. Given the dizziness, CT head was ordered - no e/o stroke or intra cranial abnormalities labs were ordered Trop WNL labs significant for elevation in Cr above his baseline, as well as, hyperg lycemia to 550. IV line was started IVF was given, as well as, Insulin by IV blood sugar was rechecked later on - and down to 470 Given the patient being symptomatic for uncontrolled hyperglycemia - will admit the floor for blood sugar control and further workup for dizziness Departure - Departure Time of Disposition: 21:27 Disposition: Admitted As Inpatient 68 Condition: Fair Clinical Impression: Hyperglycemia, Dizziness, Obesity (BMI 30.0-34.9) - Discharge Information *PRESCRIPTION DRUG MONITORING PROGRAM REVIEWED*: Not Applicable *COPY OF PRESCRIPTION DRUG MONITORING REPORT IN PATIENT KAVON: Not Applicable Referrals: Kady Barrera MD [Primary Care Provider] - Forms: ED Department Discharge Sepsis Event Note (ED) - Focused Exam Vital Signs: Vital Signs Temp Pulse Resp BP BP Pulse Ox 09/02/20 20:35 81 18 142/68 H 95 09/02/20 19:15 83 18 136/74 95 09/02/20 19:05 36.6 C 83 18 149/68 H 95 - Problem List & Annotations (1) Weakness generalized SNOMED Code(s): 92444805 Code(s): R53.1 - WEAKNESS Status: Acute Priority: Medium Current Visit: No (2) Dizziness SNOMED Code(s): 867482473, 780705924 Code(s): R42 - DIZZINESS AND GIDDINESS Status: Acute Priority: Medium Current Visit: Yes (3) Hyperglycemia SNOMED Code(s): 82879689 Code(s): R73.9 - HYPERGLYCEMIA, UNSPECIFIED Status: Acute Priority: Medium Current Visit: Yes (4) Obesity (BMI 30.0-34.9) SNOMED Code(s): 404912511033924 Code(s): E66.9 - OBESITY, UNSPECIFIED Status: Chronic Priority: Medium Current Visit: Yes (5) Chronic kidney disease, stage 3 SNOMED Code(s): 158184765 Code(s): N18.30 - CHRONIC KIDNEY DISEASE, STAGE 3 UNSPECIFIED Status: Acute Current Visit: Yes Qualifiers: Chronic kidney disease stage 3 subtype: stage 3b (GFR 30-44) Qualified Code(s): N18.32 - Chronic kidney disease, stage 3b - Problem List Review Problem List Initiated/Reviewed/Updated: Yes - My Orders Last 24 Hours: My Active Orders 09/02/20 19:14 EKG Documentation Completion [RC] ASDIRECTED Sodium Chloride 0.9% [Saline Flush] 10 ml FLUSH ASDIRECTED PRN Saline Lock Insert [OM.PC] Routine 09/02/20 19:38 Head wo Cont [CT] Stat 09/02/20 21:01 CORONAVIRUS COVID-19 ASHLEY [MOLEC] Stat 09/02/20 21:30 Sodium Chloride 0.9% @ 150 MLS/HR (1000ml) Sodium Chloride 0.9% [Normal Saline] 1,000 ml IV ASDIRECTED - Assessment/Plan Last 24 Hours: My Active Orders 09/02/20 19:14 EKG Documentation Completion [RC] ASDIRECTED Sodium Chloride 0.9% [Saline Flush] 10 ml FLUSH ASDIRECTED PRN Saline Lock Insert [OM.PC] Routine 09/02/20 19:38 Head wo Cont [CT] Stat 09/02/20 21:01 CORONAVIRUS COVID-19 ASHLEY [MOLEC] Stat 09/02/20 21:30 Sodium Chloride 0.9% @ 150 MLS/HR (1000ml) Sodium Chloride 0.9% [Normal Saline] 1,000 ml IV ASDIRECTED Plan: - will start insulin therapy by IV - continue to monitor worsening of kidney function and manage with hydration and insulin - labs daily - resume rest of home meds
[2020-09-02 19:54] LABS: HEMOGLOBIN A1C 9.6 % (< 5.7)
[2020-09-02] MEDS ORDERED: Glucagon,Human Recombinant 1 MG Vial IM PRN (21:25)
[2020-09-02] MEDS ORDERED: 50% Dextrose in Water 50 ML Syringe IVPUSH PRN (21:25)
[2020-09-02] MEDS ORDERED: Insulin Regular, Human 100 Units/ML 3 ML Vial IV ONE (21:25)
[2020-09-02] MEDS: Sodium Chloride 0.9% 1,000 ML IV SCH (22:01)
--- NOTE | 2020-09-02 22:47 | CT ---
CLINICAL DATA: Dizziness. UNENHANCED BRAIN CT, 02 SEPTEMBER 2020: Multislice axial acquisition was performed. Comparison is made to a prior exam dated 07 April 2020. There is diffuse atrophy. There are periventricular lucencies bilaterally consistent with small vessel ischemic change. No masses or mass effect. No intracranial hemorrhage. No evidence of acute or subacute infarct. No osseous abnormalities. IMPRESSION: No acute intracranial abnormalities. Job: [id number] MTDD
[2020-09-02] MEDS ORDERED: Acetaminophen 500 MG Tab PO PRN (22:59)
[2020-09-02] MEDS ORDERED: Non-Formulary Medication 1 Each (Rizatriptan Benzoate [Rizatriptan] 10 MG Tablet) PO PRN (22:59)
[2020-09-02] MEDS ORDERED: LORazepam 0.5 MG Tab PO PRN (22:59)
[2020-09-02] MEDS ORDERED: Cyclobenzaprine 10 MG Tab PO PRN (22:59)
[2020-09-02] MEDS ORDERED: Melatonin 10 MG Cap PO PRN (22:59)
[2020-09-02] MEDS ORDERED: [UNRECOGNIZED DRUG - OTHER] MC SCH (23:00)
[2020-09-02] MEDS: Aspirin 81 MG Tab.EC PO SCH (23:32)
[2020-09-03] MEDS ORDERED: Warfarin 2 MG Tab PO SCH (00:15)
[2020-09-03] MEDS: Sodium Chloride 0.9% 1,000 ML IV SCH (04:28)
[2020-09-03] MEDS ORDERED: predniSONE 10 MG Tab PO SCH (07:00)
[2020-09-03] MEDS ORDERED: Pantoprazole 40 MG Tab.CR PO SCH (07:00)
[2020-09-03] MEDS: Aspirin 81 MG Tab.EC PO SCH (07:33)
[2020-09-03] MEDS ORDERED: Famotidine 20 MG Tab PO SCH (08:00)
[2020-09-03] MEDS ORDERED: FLUoxetine 20 MG Cap PO SCH (08:00)
[2020-09-03] MEDS ORDERED: Clopidogrel 75 MG Tab PO SCH (08:00)
[2020-09-03] MEDS ORDERED: Dicyclomine 10 MG Cap PO SCH (08:00)
[2020-09-03] MEDS ORDERED: Isosorbide Mononitrate 60 MG Tab.ER PO SCH (08:00)
[2020-09-03] MEDS ORDERED: Non-Formulary Medication 1 Each (Fluticasone/Umeclidin/Vilanter [Trelegy Ellipta 100-62.5- IH SCH (08:00)
[2020-09-03] MEDS ORDERED: Metoprolol Succinate 50 MG Tab.ER PO SCH (08:00)
[2020-09-03] MEDS ORDERED: Gabapentin 300 MG Cap PO SCH (08:00)
[2020-09-03] MEDS ORDERED: Tamsulosin 0.4 MG Cap.ER PO SCH (08:00)
[2020-09-03] MEDS ORDERED: Omeprazole 20 MG Cap.CR PO SCH (08:00)
[2020-09-03] MEDS ORDERED: Furosemide 20 MG Tab PO SCH ×2 (08:00→14:00)
[2020-09-03] MEDS ORDERED: Losartan 50 MG Tab PO SCH (08:00)
[2020-09-03] MEDS ORDERED: Non-Formulary Medication 1 Each (Umeclidinium Brm/Vilanterol Tr [Anoro Ellipta 62.5-25 Mcg INH SCH (08:00)
[2020-09-03] MEDS ORDERED: 50% Dextrose in Water 50 ML Syringe IVPUSH PRN (10:56)
[2020-09-03] MEDS ORDERED: Insulin Regular, Human 100 Units/ML 3 ML Vial IV ONE (10:56)
[2020-09-03] MEDS ORDERED: Glucagon,Human Recombinant 1 MG Vial IM PRN (10:56)
[2020-09-03] MEDS ORDERED: Potassium Chloride 20 MEQ Tab.ER PO ONE (12:16)
[2020-09-03] MEDS ORDERED: Insulin Regular, Human 100 Units/ML 3 ML Vial SUBCUT ONE (13:37)
[2020-09-03 17:01] VITALS: BP 141/80; PULSE 80
--- NOTE | 2020-09-03 17:59 | PCM.DCSUM1 ---
Discharge Summary - Hospital Course Diagnosis: Stroke: No - Discharge Data Discharge Date: 09/03/20 Discharge Disposition: Home, Self-Care 01 Condition: Stable - Referral to Home Health Primary Care Physician: Kady Barrera MD - Discharge Diagnosis/Problem(s) (1) Weakness generalized SNOMED Code(s): 16623089 ICD Code: R53.1 - WEAKNESS Status: Chronic Priority: Medium (2) Dizziness SNOMED Code(s): 547887961, 948463890 ICD Code: R42 - DIZZINESS AND GIDDINESS Status: Acute Priority: Medium (3) Hyperglycemia SNOMED Code(s): 58466579 ICD Code: R73.9 - HYPERGLYCEMIA, UNSPECIFIED Status: Acute Priority: Medi um (4) Obesity (BMI 30.0-34.9) SNOMED Code(s): 177008258100918 ICD Code: E66.9 - OBESITY, UNSPECIFIED Status: Chronic Priority: Medium (5) Chronic kidney disease, stage 3 SNOMED Code(s): 085039041 ICD Code: N18.30 - CHRONIC KIDNEY DISEASE, STAGE 3 UNSPECIFIED Status: Acute Priority: Medium Qualifiers: Chronic kidney disease stage 3 subtype: stage 3b (GFR 30-44) Qualified Code(s): N18.32 - Chronic kidney disease, stage 3b - Patient Summary/Data Hospital Course: Patient was admitted to the floor for management of his worsening kidney function and uncontrolled Hyperglycemia. Accuchecks with meals. Insulin as needed for correction. IVF was administered to help with mild dehydration causing acute on CKD disease due to increased diuresis. Blood sugar down from 550 to 350 over 24 hrs. Cr improved with hydration.. Feeling less dizzy and ambulating user a walker to and from the bathroom without assistance - Patient Instructions Diet: Diabetic Diet Activity: As Tolerated Driving: Do Not Drive Showering/Bathing: May Shower - Discharge Plan *PRESCRIPTION DRUG MONITORING PROGRAM REVIEWED*: Not Applicable *COPY OF PRESCRIPTION DRUG MONITORING REPORT IN PATIENT KAVON: Not Applicable Home Medications: Home Meds Omeprazole 20 mg PO DAILY 05/26/15 [History] atorvaSTATin [Lipitor] 80 mg PO BEDTIME 05/26/15 [History] Metoprolol Succinate [Toprol XL] 50 mg PO DAILY 05/25/16 [History] Furosemide 20 mg PO QAM 03/29/17 [History] Metoclopramide HCl [Reglan] 10 mg PO QIDACANDBED 03/29/17 [History] Tamsulosin HCl 0.4 mg PO DAILY 03/29/17 [History] Insulin Pump Syringe, 3 mL [Minimed Navarro] 1 each ASDIRECTED 04/04/17 [History] Isosorbide Mononitrate [Isosorbide Mononitrate ER] 120 mg PO DAILY 09/09/17 [History] Aspirin [Halfprin] 81 mg PO DAILY 12/03/19 [History] Gabapentin [Neurontin] 300 mg PO BID 12/03/19 [History] Losartan [Cozaar] 100 mg PO DAILY 12/03/19 [History] Acetaminophen 1,000 mg PO Q6H PRN 12/08/19 [History] Cyclobenzaprine [Flexeril] 10 mg PO BID PRN 12/08/19 [History] Warfarin [Coumadin] 1 mg PO ASDIRECTED 12/08/19 [History] Dicyclomine HCl [Bentyl] 10 mg PO DAILY 04/10/20 [History] FLUoxetine [PROzac] 20 mg PO DAILY 04/10/20 [History] Famotidine 40 mg PO BID 04/10/20 [History] Furosemide [Lasix] 60 mg PO 1400 04/10/20 [History] Melatonin 10 mg PO BEDTIME PRN 04/10/20 [History] Mometasone/Formoterol [Dulera 200 MCG/5 MCG] 2 puff INH BID 04/10/20 [History] Rizatriptan Benzoate [Rizatriptan] 10 mg PO DAILY PRN 04/10/20 [History] Clopidogrel [Plavix] 75 mg PO DAILY 09/02/20 [History] LORazepam [Ativan] 0.5 mg PO TID PRN 09/02/20 [History] predniSONE [Prednisone] 10 mg PO DAILY 09/02/20 [History] Fluticasone/Umeclidin/Vilanter [Trelegy Ellipta 100-62.5-25] 1 each IH DAILY 09/03/20 [Rx] Umeclidinium Brm/Vilanterol Tr [Anoro Ellipta 62.5-25 MCG] 1 puff INH DAILY 09/03/20 [Rx] Umeclidinium Limestone [Incruse Ellipta*] 1 puff INH DAILY 09/03/20 [History] Warfarin [Coumadin] 2 mg PO ASDIRECTED 09/03/20 [History] Forms: ED Department Discharge Referrals: Kady Barrera MD [Primary Care Provider] - - Discharge Summary/Plan Comment DC Time >30 min.: Yes - General Info Date of Service: 09/03/20 Functional Status: Reports: Tolerating Diet, Ambulating, Urinating - Review of Systems General: Reports: No Symptoms HEENT: Reports: No Symptoms Pulmonary: Reports: No Symptoms Cardiovascular: Reports: No Symptoms Gastrointestinal: Reports: No Symptoms Musculoskeletal: Reports: No Symptoms Neurological: Reports: No Symptoms - Patient Data Vitals - Most Recent: Last Vital Signs Temp 36.9 C 09/03/20 14:00 Pulse 80 09/03/20 14:00 Resp 16 09/03/20 14:00 BP 141/80 H 09/03/20 14:00 Pulse Ox 96 09/03/20 14:00 Weight - Most Recent: 171.089 kg I&O - Last 24 hours: Intake & Output 09/03/20 09/03/20 09/03/20 06:59 14:59 22:59 Intake Total 1750 Output Total 1150 Balance 600 Lab Results - Last 24 hrs: Laboratory Results - last 24 hr 09/02/20 09/02/20 09/02/20 Range/Units 19:34 19:35 19:36 WBC 9.9 (4.0-11.0) K/uL RBC 4.47 L (4.50-6.50) M/uL Hgb 13.2 (13.0-18.0) g/dL Hct 38.5 L (40.0-54.0) % MCV 86 (76-96) fL MCH 29.5 (27.0-32.0) pg MCHC 34.3 (31.0-35.0) g/dL RDW 13.9 (11.0-16.0) % Plt Count 192 (150-400) K/uL MPV 11.9 H (6.0-10.0) fL PT (9.0-11.5) sec INR (1.0-3.5) Sodium 134 L (136-145) mmol/L Potassium 3.4 L (3.5-5.1) mmol/L Chloride 93 L (98-107) mmol/L Carbon Dioxide 28.3 D (21.0-32.0) mmol/L Anion Gap 16.1 H (5.0-15.0) mmol/L BUN 36 H D (8-26) mg/dL Creatinine 1.92 H (0.70-1.30) mg/dL Est Cr Clr Drug Dosing TNP Estimated GFR (MDRD) 35 L (>60) MLS/MIN BUN/Creatinine Ratio 18.8 (6-25) Glucose 511 H* D (74-100) mg/dL POC Glucose (74-110) mg/dL Hemoglobin A1c (< 5.7) % Calcium 8.6 (8.5-10.1) mg/dL Phosphorus 3.1 (2.5-4.9) mg/dL Magnesium 2.1 (1.8-2.4) mg/dL Troponin I < 0.017 (0.000-0.060) ng/mL B-Natriuretic Peptide 159 H D (0-125) pg/mL Urine Color Urine Appearance (CLEAR) Urine pH (5.0-8.0) Ur Specific Fouke (1.003-1.030) Urine Protein (NEGATIVE) mg/dL Urine Glucose (UA) (NEGATIVE) mg/dL Urine Ketones (NEGATIVE) mg/dL Urine Occult Blood (NEGATIVE) Urine Nitrite (NEGATIVE) Urine Bilirubin (NEGATIVE) Urine Urobilinogen (0.2-1.0) E.U./dL Ur Leukocyte Esterase (NEGATIVE) SARS-CoV-2 RNA (ASHLEY) (NEGATIVE) 09/02/20 09/02/20 09/02/20 Range/Units 19:36 19:43 20:20 WBC (4.0-11.0) K/uL RBC (4.50-6.50) M/uL Hgb (13.0-18.0) g/dL Hct (40.0-54.0) % MCV (76-96) fL MCH (27.0-32.0) pg MCHC (31.0-35.0) g/dL RDW (11.0-16.0) % Plt Count (150-400) K/uL MPV (6.0-10.0) fL PT 24.5 H D (9.0-11.5) sec INR 2.4 D (1.0-3.5) Sodium (136-145) mmol/L Potassium (3.5-5.1) mmol/L Chloride (98-107) mmol/L Carbon Dioxide (21.0-32.0) mmol/L Anion Gap (5.0-15.0) mmol/L BUN (8-26) mg/dL Creatinine (0.70-1.30) mg/dL Est Cr Clr Drug Dosing Estimated GFR (MDRD) (>60) MLS/MIN BUN/Creatinine Ratio (6-25) Glucose (74-100) mg/dL POC Glucose 434 H* (74-110) mg/dL Hemoglobin A1c 9.6 H (< 5.7) % Calcium (8.5-10.1) mg/dL Phosphorus (2.5-4.9) mg/dL Magnesium (1.8-2.4) mg/dL Troponin I (0.000-0.060) ng/mL B-Natriuretic Peptide (0-125) pg/mL Urine Color Urine Appearance (CLEAR) Urine pH (5.0-8.0) Ur Specific Fouke (1.003-1.030) Urine Protein (NEGATIVE) mg/dL Urine Glucose (UA) (NEGATIVE) mg/dL Urine Ketones (NEGATIVE) mg/dL Urine Occult Blood (NEGATIVE) Urine Nitrite (NEGATIVE) Urine Bilirubin (NEGATIVE) Urine Urobilinogen (0.2-1.0) E.U./dL Ur Leukocyte Esterase (NEGATIVE) SARS-CoV-2 RNA (ASHLEY) (NEGATIVE) 09/02/20 09/02/20 09/02/20 Range/Units 21:01 21:23 22:08 WBC (4.0-11.0) K/uL RBC (4.50-6.50) M/uL Hgb (13.0-18.0) g/dL Hct (40.0-54.0) % MCV (76-96) fL MCH (27.0-32.0) pg MCHC (31.0-35.0) g/dL RDW (11.0-16.0) % Plt Count (150-400) K/uL MPV (6.0-10.0) fL PT (9.0-11.5) sec INR (1.0-3.5) Sodium (136-145) mmol/L Potassium (3.5-5.1) mmol/L Chloride (98-107) mmol/L Carbon Dioxide (21.0-32.0) mmol/L Anion Gap (5.0-15.0) mmol/L BUN (8-26) mg/dL Creatinine (0.70-1.30) mg/dL Est Cr Clr Drug Dosing Estimated GFR (MDRD) (>60) MLS/MIN BUN/Creatinine Ratio (6-25) Glucose 501 H* (74-100) mg/dL POC Glucose (74-110) mg/dL Hemoglobin A1c (< 5.7) % Calcium (8.5-10.1) mg/dL Phosphorus (2.5-4.9) mg/dL Magnesium (1.8-2.4) mg/dL Troponin I (0.000-0.060) ng/mL B-Natriuretic Peptide (0-125) pg/mL Urine Color Yellow Urine Appearance Clear (CLEAR) Urine pH 6.5 (5.0-8.0) Ur Specific Fouke 1.015 (1.003-1.030) Urine Protein Negative (NEGATIVE) mg/dL Urine Glucose (UA) 500 H (NEGATIVE) mg/dL Urine Ketones Negative (NEGATIVE) mg/dL Urine Occult Blood Negative (NEGATIVE) Urine Nitrite Negative (NEGATIVE) Urine Bilirubin Negative (NEGATIVE) Urine Urobilinogen 0.2 (0.2-1.0) E.U./dL Ur Leukocyte Esterase Negative (NEGATIVE) SARS-CoV-2 RNA (ASHLEY) Negative (NEGATIVE) 09/02/20 09/03/20 09/03/20 Range/Units 22:10 08:45 08:54 WBC (4.0-11.0) K/uL RBC (4.50-6.50) M/uL Hgb (13.0-18.0) g/dL Hct (40.0-54.0) % MCV (76-96) fL MCH (27.0-32.0) pg MCHC (31.0-35.0) g/dL RDW (11.0-16.0) % Plt Count (150-400) K/uL MPV (6.0-10.0) fL PT (9.0-11.5) sec INR (1.0-3.5) Sodium Cancelled 137 (136-145) mmol/L Potassium Cancelled 3.1 L (3.5-5.1) mmol/L Chloride Cancelled 98 (98-107) mmol/L Carbon Dioxide Cancelled 29.4 (21.0-32.0) mmol/L Anion Gap Cancelled 12.7 (5.0-15.0) mmol/L BUN Cancelled 33 H (8-26) mg/dL Creatinine Cancelled 1.55 H (0.70-1.30) mg/dL Est Cr Clr Drug Dosing Cancelled 47.28 Estimated GFR (MDRD) Cancelled 44 L (>60) MLS/MIN BUN/Creatinine Ratio Cancelled 21.3 (6-25) Glucose Cancelled 336 H D (74-100) mg/dL POC Glucose 374 H (74-110) mg/dL Hemoglobin A1c (< 5.7) % Calcium Cancelled 8.4 L (8.5-10.1) mg/dL Phosphorus (2.5-4.9) mg/dL Magnesium (1.8-2.4) mg/dL Troponin I Cancelled < 0.017 (0.000-0.060) ng/mL B-Natriuretic Peptide (0-125) pg/mL Urine Color Urine Appearance (CLEAR) Urine pH (5.0-8.0) Ur Specific Fouke (1.003-1.030) Urine Protein (NEGATIVE) mg/dL Urine Glucose (UA) (NEGATIVE) mg/dL Urine Ketones (NEGATIVE) mg/dL Urine Occult Blood (NEGATIVE) Urine Nitrite (NEGATIVE) Urine Bilirubin (NEGATIVE) Urine Urobilinogen (0.2-1.0) E.U./dL Ur Leukocyte Esterase (NEGATIVE) SARS-CoV-2 RNA (ASHLEY) (NEGATIVE) 09/03/20 09/03/20 Range/Units 15:17 16:30 WBC (4.0-11.0) K/uL RBC (4.50-6.50) M/uL Hgb (13.0-18.0) g/dL Hct (40.0-54.0) % MCV (76-96) fL MCH (27.0-32.0) pg MCHC (31.0-35.0) g/dL RDW (11.0-16.0) % Plt Count (150-400) K/uL MPV (6.0-10.0) fL PT (9.0-11.5) sec INR (1.0-3.5) Sodium 137 (136-145) mmol/L Potassium 3.6 (3.5-5.1) mmol/L Chloride 98 (98-107) mmol/L Carbon Dioxide 27.0 (21.0-32.0) mmol/L Anion Gap 15.6 H (5.0-15.0) mmol/L BUN 31 H (8-26) mg/dL Creatinine 1.67 H (0.70-1.30) mg/dL Est Cr Clr Drug Dosing 43.89 Estimated GFR (MDRD) 41 L (>60) MLS/MIN BUN/Creatinine Ratio 18.6 (6-25) Glucose 398 H (74-100) mg/dL POC Glucose 393 H (74-110) mg/dL Hemoglobin A1c (< 5.7) % Calcium 8.6 (8.5-10.1) mg/dL Phosphorus (2.5-4.9) mg/dL Magnesium (1.8-2.4) mg/dL Troponin I (0.000-0.060) ng/mL B-Natriuretic Peptide (0-125) pg/mL Urine Color Urine Appearance (CLEAR) Urine pH (5.0-8.0) Ur Specific Fouke (1.003-1.030) Urine Protein (NEGATIVE) mg/dL Urine Glucose (UA) (NEGATIVE) mg/dL Urine Ketones (NEGATIVE) mg/dL Urine Occult Blood (NEGATIVE) Urine Nitrite (NEGATIVE) Urine Bilirubin (NEGATIVE) Urine Urobilinogen (0.2-1.0) E.U./dL Ur Leukocyte Esterase (NEGATIVE) SARS-CoV-2 RNA (ASHLEY) (NEGATIVE) Med Orders - Current: Current Medications Acetaminophen (Acetaminophen 500 Mg Tab) 1,000 mg PO Q6H PRN PRN Reason: Pain Last Admin: 09/03/20 02:45 Dose: 1,000 mg Documented by: Aspirin (Aspirin 81 Mg Tab.Ec) 81 mg PO DAILY [facility] Last Admin: 09/03/20 07:33 Dose: 81 mg Documented by: Atorvastatin Calcium (Atorvastatin 20 Mg Tab) 80 mg PO BEDTIME ZEV Clopidogrel Bisulfate (Clopidogrel 75 Mg Tab) 75 mg PO DAILY [facility] Last Admin: 09/03/20 07:33 Dose: 75 mg Documented by: Cyclobenzaprine HCl (Cyclobenzaprine 10 Mg Tab) 10 mg PO BID PRN PRN Reason: Pain Dextrose/Water (50% Dextrose In Water 50 Ml Syringe) 50 ml IVPUSH ASDIRECTED PRN PRN Reason: Hypoglycemia Dicyclomine HCl (Dicyclomine 10 Mg Cap) 10 mg PO DAILY [facility] Last Admin: 09/03/20 10:58 Dose: Not Given Documented by: Famotidine (Famotidine 20 Mg Tab) 40 mg PO BID [facility] Last Admin: 09/03/20 07:34 Dose: 40 mg Documented by: Fluoxetine HCl (Fluoxetine 20 Mg Cap) 20 mg PO DAILY [facility] Last Admin: 09/03/20 07:35 Dose: 20 mg Documented by: Furosemide (Furosemide 20 Mg Tab) 20 mg PO QAM [facility] Last Admin: 09/03/20 07:37 Dose: 20 mg Documented by: Furosemide (Furosemide 20 Mg Tab) 60 mg PO DAILY@1400 [facility] Last Admin: 09/03/20 13:29 Dose: 60 mg Documented by: Gabapentin (Gabapentin 300 Mg Cap) 300 mg PO BID [facility] Last Admin: 09/03/20 07:33 Dose: 300 mg Documented by: Glucagon (Glucagon,Human Recombinant 1 Mg Vial) 1 mg IM ASDIRECTED PRN PRN Reason: Hypoglycemia Sodium Chloride (Normal Saline) 1,000 mls @ 150 mls/hr IV ASDIRECTED [facility] Last Admin: 09/03/20 04:28 Dose: 150 mls/hr Documented by: Isosorbide Mononitrate (Isosorbide Mononitrate 60 Mg Tab.Er) 120 mg PO DAILY [facility] Last Admin: 09/03/20 07:34 Dose: 120 mg Documented by: Lorazepam (Lorazepam 0.5 Mg Tab) 0.5 mg PO TID PRN PRN Reason: Anxiety Last Admin: 09/03/20 01:36 Dose: 0.5 mg Documented by: Losartan Potassium (Losartan 50 Mg Tab) 100 mg PO DAILY [facility] Last Admin: 09/03/20 07:35 Dose: 100 mg Documented by: Melatonin (Melatonin 10 Mg Cap) 10 mg PO BEDTIME PRN PRN Reason: Insomnia Metoprolol Succinate (Metoprolol Succinate 50 Mg Tab.Er) 50 mg PO DAILY [facility] Last Admin: 09/03/20 07:35 Dose: 50 mg Documented by: Non-Formulary Medication (Fluticasone/Umeclidin/Vilanter [Trelegy Ellipta 100-62.5-25]) 1 each IH DAILY [facility] Non-Formulary Medication (Insulin Pump Syringe, 3 Ml [Minimed Navarro]) 1 each ASDIRECTED [facility] Non-Formulary Medication (Rizatriptan Benzoate [Rizatriptan]) 10 mg PO DAILY PRN PRN Reason: Headache Non-Formulary Medication (Umeclidinium Brm/Vilanterol Tr [Anoro Ellipta 62.5-25 Mcg]) 1 puff INH DAILY [facility] Pantoprazole Sodium (Pantoprazole 40 Mg Tab.Cr) 40 mg PO ACBREAKFAST [facility] Last Admin: 09/03/20 07:34 Dose: 40 mg Documented by: Prednisone (Prednisone 10 Mg Tab) 10 mg PO WITHBREAKFAST [facility] Last Admin: 09/03/20 07:34 Dose: 10 mg Documented by: Sodium Chloride (Sodium Chloride 0.9% 10 Ml Syringe) 10 ml FLUSH ASDIRECTED PRN PRN Reason: Keep Vein Open Tamsulosin HCl (Tamsulosin 0.4 Mg Cap.Er) 0.4 mg PO DAILY [facility] Last Admin: 09/03/20 07:33 Dose: 0.4 mg Documented by: Warfarin Sodium (Warfarin 1 Mg Tab) 1 mg PO MoTuWeFrSa@1800 ZEV Warfarin Sodium (Warfarin 2 Mg Tab) 2 mg PO SuTh@1800 [facility] Discontinued Medications Dextrose/Water (50% Dextrose In Water 50 Ml Syringe) 50 ml IVPUSH ASDIRECTED PRN PRN Reason: Hypoglycemia Glucagon (Glucagon,Human Recombinant 1 Mg Vial) 1 mg IM ASDIRECTED PRN PRN Reason: Hypoglycemia Insulin Human Regular (Insulin Regular, Human 100 Units/Ml 3 Ml Vial) 10 unit IV ONETIME ONE Stop: 09/02/20 21:26 Last Admin: 09/02/20 22:14 Dose: 10 units Documented by: Insulin Human Regular (Insulin Regular, Human 100 Units/Ml 3 Ml Vial) 8 unit IV ONETIME ONE Stop: 09/03/20 10:57 Last Admin: 09/03/20 11:00 Dose: 8 units Documented by: Insulin Human Regular (Insulin Regular, Human 100 Units/Ml 3 Ml Vial) 10 unit SUBCUT ONETIME ONE Stop: 09/03/20 13:38 Potassium Chloride (Potassium Chloride 20 Meq Tab.Er) 40 meq PO ONETIME ONE Stop: 09/03/20 12:17 Last Admin: 09/03/20 12:20 Dose: 40 meq Documented by: Warfarin Sodium (Warfarin 2 Mg Tab) 2 mg PO ASDIRECTED ZEV - Exam General: Reports: Alert, Oriented Neck: Reports: Supple Lungs: Reports: Clear to Auscultation, Normal Respiratory Effort Cardiovascular: Reports: Regular Rate, Regular Rhythm GI/Abdominal Exam: Normal Bowel Sounds, Soft, Non-Tender Back Exam: Reports: Normal Inspection Extremities: Normal Inspection Neurological: Reports: No New Focal Deficit #1 Interpretation EKG Date: 09/03/20 Rhythm: NSR Alexander: Normal P-Wave: Present QRS: Normal ST-T: Normal QT: Normal
[2020-09-03] MEDS ORDERED: atorvaSTATin 20 MG Tab PO SCH (20:00)
[2020-09-04] MEDS ORDERED: Warfarin 2 MG Tab PO SCH (18:00)
== END 2020-09-03 18:30 | disposition home or self-care (01) | DRG 638 ==
LOC: LB.ED 18:48 → LB.MS 22:30 → UNDOADMIN 22:30 → LB.MS 22:54
PROVIDERS: ADMIT Surgery; ATTEND Surgery
DX: R42 Dizziness and giddiness (principal); E11.65 Type 2 diabetes mellitus with hyperglycemia; E66.9 Obesity, unspecified; N17.9 Acute kidney failure, unspecified; Z68.43 Body mass index [BMI] 50.0-59.9, adult; E66.01 Morbid (severe) obesity due to excess calories; E11.22 Type 2 diabetes mellitus with diabetic chronic kidney disease; H54.7 Unspecified visual loss; K22.70 Barrett's esophagus without dysplasia; G47.30 Sleep apnea, unspecified; E86.0 Dehydration; M54.2 Cervicalgia; M54.9 Dorsalgia, unspecified; G89.29 Other chronic pain; K59.09 Other constipation; I48.91 Unspecified atrial fibrillation; K21.9 Gastro-esophageal reflux disease without esophagitis; F32.9 Major depressive disorder, single episode, unspecified; E53.8 Deficiency of other specified B group vitamins; I12.9 Hypertensive chronic kidney disease with stage 1 through stage 4 chronic kidney disease, or unspecified chronic kidney disease; N18.32 Chronic kidney disease, stage 3b; Z96.659 Presence of unspecified artificial knee joint; Z20.822 Contact with and (suspected) exposure to COVID-19; Z95.0 Presence of cardiac pacemaker; Z88.8 Allergy status to other drugs, medicaments and biological substances; Z79.4 Long term (current) use of insulin; Z79.82 Long term (current) use of aspirin; Z79.01 Long term (current) use of anticoagulants; Z86.711 Personal history of pulmonary embolism; Z87.01 Personal history of pneumonia (recurrent); Z87.442 Personal history of urinary calculi; Z95.810 Presence of automatic (implantable) cardiac defibrillator; Z91.02 Food additives allergy status; Z79.899 Other long term (current) drug therapy; Z86.73 Personal history of transient ischemic attack (TIA), and cerebral infarction without residual deficits
CPT/HCPCS: 36415; 70450; 80048; 81003; 82947; 82962; 83036; 83735; 83880; 84100; 84484; 85027; 85610; 93005; 99285-25; A9270-GY; J1815-GY; J7030; J7512; U0002

== ENCOUNTER 2020-09-06 18:50 | Emergency (ER) | payer MEDICARE ==
[2020-09-06] MEDS ORDERED: Magnesium Citrate Solution 296 ML Bottle ONE ×2 (20:00→20:30)
--- NOTE | 2020-09-06 23:51 | ER ---
HISTORY OF PRESENT ILLNESS: A 74-year-old male here with complaints of abdominal pain on the left lower quadrant area that started about 3 hours ago. He rates it as constant and states at worst it is about a 5, other times it is less more like a 3. The patient denies any problems with nausea or vomiting. He has not had any issues with hematuria or dysuria. The patient was recently seen in our facility for abdominal pain and hyperglycemia and was admitted overnight in the hospital. He is concerned that his blood sugar could be out of whack again. The patient denies any problems with coughing, chest pain, or nausea or vomiting today. OBJECTIVE: GENERAL APPEARANCE: The patient is awake and alert. He is quiet, in no obvious distress. VITAL SIGNS: Reviewed as listed, they are normal. ABDOMEN: Protuberant. There is tenderness in the left lower and left flank area with palpation, that is mild. Bowel sounds are present but hypoactive. SKIN: Warm and dry. LUNGS: Clear. There is no CVA tenderness with percussion. LAB AND X-RAY STUDIES: CBC is unremarkable. Basic metabolic panel reveals his electrolytes are normal. Blood glucose is 222, nonfasting. Urine is negative. Flat and upright abdominal films show a moderate amount of stool in the large bowel. DIAGNOSIS: Abdominal pain/constipation. TREATMENT PLAN: Magnesium Citrate 1 pint p.o., the patient is to take this in the morning and drink it quickly. He is to also consider using a suppository or a Fleet enema approximately 1 hour later if needed to get the bowel movement started. If this does not resolve his condition, he can repeat the treatment 1 day later and push fluids, increasing his liquid intake by at least 2 large glasses a day. Recheck should be in a couple of days if his symptoms have not resolved or as needed. CRS/MODL /[id number]
[2020-09-07 03:34] VITALS: BP 138/67; PULSE 78
--- NOTE | 2020-09-07 08:06 | CR ---
Date of Service: 09/06/20 Clinical Data: Abd pain left side. SUPINE AND UPRIGHT ABDOMEN: There is a moderate amount of stool noted in the region of the cecum and rectum. No evidence of obstruction or ileus. No free air. [id number] MTDD
== END 2020-09-06 20:40 | disposition home or self-care (01) ==
LOC: LB.ED 18:50
DX: K59.00 Constipation, unspecified (principal)
CPT/HCPCS: 36415; 74019; 80048; 81001; 85025; 99282; 99284-25; A0425; A0429; A9270-GY

== ENCOUNTER 2020-10-19 19:44 | Emergency (ER) | payer MEDICARE ==
[2020-10-19] MEDS ORDERED: traMADol 50 MG Tab ONE (20:00)
[2020-10-19 20:05] VITALS: BP 153/59; PULSE 98
--- NOTE | 2020-10-20 03:46 | PN ---
DATE OF VISIT: 10/19/2020 HISTORY OF PRESENT ILLNESS: 75-year-old male who comes to the ER with his with complaints of lower right leg pain on the lateral side just below the knee. The patient states there has been no injury to this area. It just started hurting this afternoon about 3 o'clock. He is on Coumadin, but tells me he has had multiple history of blood clot in his lungs and he is very concerned about a blood clot in his leg. The patient is not having any problems with coughing or shortness of breath at this time. He tells me that he had a PT/INR done today and the INR was over 2, which was considered normal. The patient does have history of atrial fibrillation. OBJECTIVE: GENERAL APPEARANCE: The patient is awake and alert. No obvious respiratory distress. MUSCULOSKELETAL: Examining the right lower leg reveals skin is dry. The area of tenderness is just on the lateral and posterior aspect below the knee joint down to the calf muscle, but really not including the calf muscle. With pressure, there is tenderness and it appears to be just in this one area. The calf muscle is nontender. Homans sign is negative. SKIN: Dry and a little scaly in nature. DIAGNOSIS: Right lower leg pain. TREATMENT PLAN: The patient is on Coumadin with a current INR. We will see if we can get him scheduled for an ultrasound tomorrow, they are available here on and I will give the patient Ultram tablets to take for pain control as needed and he can also take Tylenol at home as well, which he has been doing p.r.n. He is to go home and rest tonight. He can apply some heat if it feels better for him and if he cannot get the ultrasound done here tomorrow, we should try and get this scheduled as soon as possible, possibly in [place] if needed. CRS/MODL /[id number]
== END 2020-10-19 20:20 | disposition home or self-care (01) ==
LOC: LB.ED 19:44
DX: M79.661 Pain in right lower leg (principal)
CPT/HCPCS: 99281; 99283; A9270-GY

== ENCOUNTER 2020-11-15 21:01 | Emergency (ER) | payer MEDICARE ==
[2020-11-15] MEDS: GI Cocktail Oral Solution 30 ML PO ONE ×2 (21:24→21:40)
[2020-11-15] MEDS: Sodium Chloride 0.9% 1,000 ML IV ONE (21:48)
[2020-11-15] MEDS: HYDROmorphone 2 MG/ML SDV IVPUSH ONE ×2 (21:48→22:21)
[2020-11-15] MEDS: Sodium Chloride 0.9% 500 ML IV ONE (21:50)
[2020-11-15] MEDS: HYDROmorphone 2 MG/ML SDV ONE (22:21)
--- NOTE | 2020-11-16 07:30 | PN ---
DATE OF VISIT: 11/15/2020 HISTORY OF PRESENT ILLNESS: A 75-year-old male who comes in by ambulance with complaints of chest pain that started about an hour after he ate supper tonight. He is pointing to the left lower chest wall area and states it radiates up towards the left shoulder. The patient did take nitroglycerin x3 at home but it did not help anything. He also took 3 baby aspirin. He rates his pain at 8/10. He states he became dizzy after he was coming back from the bathroom and became quite weak that is when the pain also started. He has not been nauseated. He has not vomited. The patient states he was feeling good before this, and denies any recent falls or injuries. OBJECTIVE: GENERAL APPEARANCE: The patient is awake and alert. No respiratory distress. VITAL SIGNS: Reviewed showing he is afebrile. Blood pressure is in the 140s/90s, pulse is in the 90s. On initial evaluation, an EKG was obtained showing a normal sinus rhythm. HEENT: Oral mucous membranes are slightly dry. Tonsils are not enlarged or injected. Pharynx not inflamed. NECK: Supple. LUNGS: Clear with slightly reduced air exchange throughout the lung lema. CARDIAC: Heart sounds distinct without murmurs. SKIN: Warm and dry. ABDOMEN: Soft. There is tenderness in the upper left quadrant with palpation with mild guarding. Bowel sounds are present. The patient is morbidly obese. LABORATORY DATA: Labs today include a CBC which is normal. PT/INR shows an INR of 2.2. Comprehensive metabolic panel shows a glucose nonfasting of 244. Troponin is negative. Chest x-ray is unremarkable. INITIAL TREATMENT: At this point, an IV had been started. The patient was given Dilaudid 1 mg IV. We also gave a GI cocktail. These measures did bring the patient's pain down to a 5/6. He states he feels much more comfortable. We did give normal saline 500 mL in a bolus form and this seemed to help with the dizziness as well. The patient was able to stand and walk using a walker at this point. He just feels a little weak, but states that the dizziness is much better and the pain is much better. DIAGNOSES: 1. Dizziness. 2. Mild dehydration. 3. Abdominal pain with possible gastroesophageal reflux symptoms. TREATMENT PLAN: The patient will be discharged home. I advised him to drink more water, a couple of glasses a day right now, and to follow up with his primary care provider over the next day or two at least by a phone call for a recheck. The patient agrees with the treatment plan. His will take him home. JOSUE/ADRIANO /[id number]
[2020-11-17 05:30] VITALS: BP 151/61; PULSE 74
== END 2020-11-15 23:47 | disposition home or self-care (01) ==
LOC: LB.ED 21:01
DX: R42 Dizziness and giddiness (principal); R10.12 Left upper quadrant pain; E86.0 Dehydration
CPT/HCPCS: 36415; 80053; 83690; 84484; 85025; 85610; 93005; 96374; 99285-25; A9270-GY; J1170; J7030; J7040

== ENCOUNTER 2020-11-23 20:08 | Emergency (ER) | payer MEDICARE ==
[2020-11-23] MEDS ORDERED: Sodium Chloride 0.9% 10 ML Syringe FLUSH PRN (21:05)
[2020-11-23] MEDS ORDERED: Nitroglycerin 0.4 MG Tab.SL SL ONE (21:20)
[2020-11-23] MEDS ORDERED: GI Cocktail Oral Solution 30 ML PO ONE (21:20)
[2020-11-23 23:57] VITALS: BP 136/74; PULSE 72
--- NOTE | 2020-11-24 00:30 | EDM.PDOC ---
ED HPI GENERAL MEDICAL PROBLEM - General Chief Complaint: Chest Pain Stated Complaint: Chest Pain Time Seen by Provider: 11/23/20 21:00 Source of Information: Reports: Patient History Limitations: Reports: No Limitations - History of Present Illness INITIAL COMMENTS - FREE TEXT/NARRATIVE: patient presented to the ER with a c/o left sided chest pain. no h/o CAD, but h/o arrhythmias for which he has a pacemaker and is on blood thinners. Reports that it started last night and has been on/off - not related to physical activities. No SOB or dizziness. Reports it started after having a burrito for dinner. Similar pain 1 week ago, improved with GI cocktail. h/o Lu's esophagus for which he takes PPI BID. Tried aspiring and Nitro x3 at home with minimal relief. Chest Pain Score (Numeric/FACES): 4 - Related Data Allergies Allergy/AdvReac Type Severity Reaction Status Date / Time caffeine Allergy Dizziness Verified 11/17/20 05:34 coffee (Coffea arabica) Allergy Headache Verified 11/17/20 05:34 nifedipine [From Procardia] AdvReac Mild Constipatio Verified 11/17/20 05:34 n Home Meds: Home Meds Omeprazole 20 mg PO DAILY 05/26/15 [History] atorvaSTATin [Lipitor] 80 mg PO BEDTIME 05/26/15 [History] Metoprolol Succinate [Toprol XL] 50 mg PO DAILY 05/25/16 [History] Metoclopramide HCl [Reglan] 10 mg PO QIDACANDBED 03/29/17 [History] Tamsulosin HCl 0.4 mg PO DAILY 03/29/17 [History] Insulin Pump Syringe, 3 mL [Minimed [place]] 1 each MC ASDIRECTED 04/04/17 [History] Isosorbide Mononitrate [Isosorbide Mononitrate ER] 120 mg PO DAILY 09/09/17 [History] Aspirin [Halfprin] 81 mg PO DAILY 12/03/19 [History] Gabapentin [Neurontin] 300 mg PO BID 12/03/19 [History] Losartan [Cozaar] 100 mg PO DAILY 12/03/19 [History] Acetaminophen 1,000 mg PO Q6H PRN 12/08/19 [History] Cyclobenzaprine [Flexeril] 10 mg PO BID PRN 12/08/19 [History] Warfarin [Coumadin] 1 mg PO ASDIRECTED 12/08/19 [History] Dicyclomine HCl [Bentyl] 10 mg PO DAILY 04/10/20 [History] FLUoxetine [PROzac] 20 mg PO DAILY 04/10/20 [History] Famotidine 40 mg PO BID 04/10/20 [History] Melatonin 10 mg PO BEDTIME PRN 04/10/20 [History] Mometasone/Formoterol [Dulera 200 MCG/5 MCG] 2 puff INH BID 04/10/20 [History] Rizatriptan Benzoate [Rizatriptan] 10 mg PO DAILY PRN 04/10/20 [History] Clopidogrel [Plavix] 75 mg PO DAILY 09/02/20 [History] LORazepam [Ativan] 0.5 mg PO TID PRN 09/02/20 [History] predniSONE [Prednisone] 10 mg PO DAILY 09/02/20 [History] Fluticasone/Umeclidin/Vilanter [Trelegy Ellipta 100-62.5-25] 1 each IH DAILY 09/03/20 [Rx] Umeclidinium [place] [Incruse Ellipta*] 1 puff INH DAILY 09/03/20 [History] Warfarin [Coumadin] 2 mg PO ASDIRECTED 09/03/20 [History] Past Medical History - Past Health History Medical/Surgical History: Denies Medical/Surgical History HEENT History: Reports: Cataract, Impaired Vision, Other (See Below) Other HEENT History: Lu's esophagus Cardiovascular History: Reports: Afib, Angina, Automatic Implantable Cardioverter Defibrillators, High Cholesterol, Hypertension, Pacemaker, SOB on Exertion Other Cardiovascular History: Ablation in July,, angiogram 07/25/2017 Respiratory History: Reports: PE, Pneumonia, Recurrent, Sleep Apnea, SOB Other Respiratory History: wears a cpap at night Gastrointestinal History: Reports: Bowel Obstruction, Chronic Constipation, GERD, Other (See Below) Other Gastrointestinal History: duodenal ulcer Genitourinary History: Reports: Renal Calculus, Other (See Below) Other Genitourinary History: prostate stent placed 10/01/2016 Musculoskeletal History: Reports: Back Pain, Chronic Other Musculoskeletal History: Neck pain causing migraines Neurological History: Reports: Migraines Other Neuro History: Patient had vertebrae in neck fused. Resolved some or most of headaches. Psychiatric History: Reports: Depression, Emotional Problems Endocrine/Metabolic History: Reports: Diabetes, Type II, Obesity/BMI 30+ Other Endocrine/Metabolic History: pt has insulin pump Hematologic History: Reports: B12 Deficiency, Blood Transfusion(s) Oncologic (Cancer) History: Reports: None Dermatologic History: Reports: Other (See Below) Other Dermatologic History: Had pre-cancer lesion removed to R arm. Has lesion to L wrist. - Infectious Disease History Infectious Disease History: Reports: Chicken Pox, Measles, Rubella - Past Surgical History Head Surgeries/Procedures: Reports: None HEENT Surgical History: Reports: Tonsillectomy Other HEENT Surgeries/Procedures: C3 and C4 fusion- 2014 Cardiovascular Surgical History: Reports: Cardiac Ablation, Pacer Other Cardiovascular Surgeries/Procedures: Ablation in 2014 Respiratory Surgical History: Reports: None GI Surgical History: Reports: Colonoscopy, Hernia, Inguinal, Other (See Below) Other GI Surgeries/Procedures: laproscopic sx for infestigation of constipation issues Male Surgical History: Reports: Kidney Stone Extraction, Lithotripsy (ESWL) Endocrine Surgical History: Reports: None Neurological Surgical History: Reports: C-Spine, Spinal Fusion Other Neurological Surgeries/Procedures: Woke this Am with CARDONA - currently rates at 9.5/10 Musculoskeletal Surgical History: Reports: Knee Replacement Other Musculoskeletal Surgeries/Procedures:: C3-4 vertebral fusion Social & Family History - Family History Family Medical History: No Pertinent Family History HEENT: Reports: Cataract Cardiac: Reports: [place] Respiratory: Reports: COPD GI: Reports: None : Reports: None Endocrine/Metabolic: Reports: Diabetes, type II Oncologic: Reports: Brain, Colon, Lung - Tobacco Use Tobacco Use Status *Q: Never Tobacco User Second Hand Smoke Exposure: No - Caffeine Use Caffeine Use: Reports: Coffee Other Caffeine Use: diet coke - 3-4 cans /day - Recreational Drug Use Recreational Drug Use: No - Living Situation & Occupation Living situation: Reports: Occupation: Unemployed ED ROS GENERAL - Review of Systems Review Of Systems: See Below Constitutional: Reports: No Symptoms HEENT: Reports: No Symptoms Respiratory: Reports: No Symptoms Cardiovascular: Reports: Chest Pain Endocrine: Reports: No Symptoms GI/Abdominal: Reports: No Symptoms : Reports: No Symptoms Musculoskeletal: Reports: No Symptoms ED EXAM, GENERAL - Physical Exam Exam: See Below Exam Limited By: No Limitations General Appearance: Alert, WD/WN, No Apparent Distress Eye Exam: Bilateral Eye: EOMI Respiratory/Chest: No Respiratory Distress, Lungs Clear Cardiovascular: Normal Peripheral Pulses, Regular Rate, Rhythm, No Edema GI/Abdominal: Normal Bowel Sounds, Soft Neurological: Alert, Oriented, No Motor/Sensory Deficits #1 Interpretation EKG Date: 11/23/20 Rhythm: NSR [place]: Normal QRS: Normal ST-T: Normal QT: Normal Course - Vital Signs Last Recorded V/S: Last Vital Signs Temp 36.6 C 11/23/20 21:01 Pulse 72 11/23/20 23:56 Resp 20 11/23/20 23:56 BP 136/74 11/23/20 23:56 Pulse Ox 96 11/23/20 22:43 - Orders/Labs/Meds Orders: Active Orders 24 hr Category Date Time Status Saline Lock Insert [OM.PC] Routine Oth 11/23/20 21:05 Ordered Labs: Laboratory Tests 11/23/20 11/23/20 11/24/20 Range/Units 21:20 21:20 00:00 WBC 10.5 (4.0-11.0) K/uL RBC 4.51 (4.50-6.50) M/uL Hgb 13.1 (13.0-18.0) g/dL Hct 39.1 L (40.0-54.0) % MCV 87 (76-96) fL MCH 29.0 (27.0-32.0) pg MCHC 33.5 (31.0-35.0) g/dL RDW 14.1 (11.0-16.0) % Plt Count 192 (150-400) K/uL MPV 12.1 H (6.0-10.0) fL Sodium 139 (136-145) mmol/L Potassium 3.5 (3.5-5.1) mmol/L Chloride 101 (98-107) mmol/L Carbon Dioxide 26.3 (21.0-32.0) mmol/L Anion Gap 15.2 H (5.0-15.0) mmol/L BUN 24 (8-26) mg/dL Creatinine 1.55 H (0.70-1.30) mg/dL Est Cr Clr Drug Dosing 46.59 mL/min Estimated GFR (MDRD) 44 L (>60) MLS/MIN BUN/Creatinine Ratio 15.5 (6-25) Glucose 278 H (74-100) mg/dL Calcium 8.3 L (8.5-10.1) mg/dL Troponin I < 0.017 < 0.017 (0.000-0.060) ng/mL Meds: Medications Discontinued Medications Generic Name Dose Route Start Last Admin Trade Name Freq PRN Reason Stop Dose Admin Al Hydroxide/Mg Hydroxide 30 ml 11/23/20 21:20 11/23/20 21:30 Gi Cocktail Oral Solution 30 Ml PO 11/23/20 21:21 30 ml ONETIME ONE Administration Nitroglycerin 0.4 mg 11/23/20 21:20 11/23/20 21:20 Nitroglycerin 0.4 Mg Tab.Sl SL 11/23/20 21:21 0.4 mg ONETIME ONE Administration Sodium Chloride 10 ml 11/23/20 21:05 11/23/20 21:00 Sodium Chloride 0.9% 10 Ml Syringe FLUSH 10 ml ASDIRECTED PRN Administration Keep Vein Open - Re-Assessments/Exams Free Text/Narrative Re-Assessment/Exam: was connected to a monitor vitals WNL EKG - NSR. no acute ischemic changes labs were ordered - including CBC, BMP and Trop all WNL, Nitro and GI cocktail were given -- reports significant improvement in symptoms - discomfort down to 1 and remained like this for the next 4 hrs - troponin repeat was WNL as well Departure - Departure Time of Disposition: 00:32 Disposition: Home, Self-Care 01 Condition: Good Clinical Impression: Atypical chest pain Instructions: Nonspecific Chest Pain, Adult, [id number] Referrals: PCP,None [Primary Care Provider] - Forms: ED Department Discharge Additional Instructions: - recommend to resume home meds as before - follow up with your PCP in 1-2 weeks - recommend to work on weight loss - at least 5 lbs every month - return to the ER if symptoms got worse or any concerns Sepsis Event Note (ED) - Evaluation Sepsis Screening Result: No Definite Risk - Problem List & Annotations (1) Atypical chest pain SNOMED Code(s): 207088331 Code(s): R07.89 - OTHER CHEST PAIN Status: Acute Priority: Medium - Problem List Review Problem List Initiated/Reviewed/Updated: Yes - My Orders Last 24 Hours: My Active Orders 11/23/20 21:05 Saline Lock Insert [OM.PC] Routine - Assessment/Plan Last 24 Hours: My Active Orders 11/23/20 21:05 Saline Lock Insert [OM.PC] Routine Plan: - recommend to resume home meds as before - follow up with your PCP in 1-2 weeks - recommend to work on weight loss - at least 5 lbs every month - return to the ER if symptoms got worse or any concerns
== END 2020-11-24 00:50 | disposition home or self-care (01) ==
LOC: LB.ED 20:08
DX: R07.89 Other chest pain (principal); E11.9 Type 2 diabetes mellitus without complications; E66.9 Obesity, unspecified; K21.9 Gastro-esophageal reflux disease without esophagitis; I48.91 Unspecified atrial fibrillation; Z79.82 Long term (current) use of aspirin; Z95.810 Presence of automatic (implantable) cardiac defibrillator; Z91.018 Allergy to other foods; Z68.30 Body mass index [BMI] 30.0-30.9, adult
CPT/HCPCS: 36415; 80048; 84484; 85027; 93005; 99285-25; A9270-GY

== ENCOUNTER 2020-12-05 21:52 | Emergency (ER) | payer MEDICARE ==
[2020-12-05] MEDS: Nitroglycerin 0.4 MG Tab.SL SL ONE (22:17)
--- NOTE | 2020-12-05 22:20 | EDM.PDOC ---
ED HPI GENERAL MEDICAL PROBLEM - General Chief Complaint: Abdominal Pain Stated Complaint: abd pain Time Seen by Provider: 12/05/20 22:00 Source of Information: Reports: Patient History Limitations: Reports: No Limitations - History of Present Illness INITIAL COMMENTS - FREE TEXT/NARRATIVE: patient presented to the ER due to painful hiccups. He reports a long history of acid reflux due to Lu's esophagus and hiccups. Started earlier tonight and not resolving. Mild nausea. no fever or chills. No CP or SOB. Onset: Sudden Duration: Hour(s): (4) Location: Reports: Abdomen Abdominal Pain Score (Numeric/FACES): 10 - Related Data Allergies Allergy/AdvReac Type Severity Reaction Status Date / Time caffeine Allergy Dizziness Verified 12/06/20 02:08 coffee (Coffea arabica) Allergy Headache Verified 12/06/20 02:08 nifedipine [From Procardia] AdvReac Mild Constipatio Verified 12/06/20 02:08 n Home Meds: Home Meds Omeprazole 20 mg PO DAILY 05/26/15 [History] atorvaSTATin [Lipitor] 80 mg PO BEDTIME 05/26/15 [History] Metoprolol Succinate [Toprol XL] 50 mg PO DAILY 05/25/16 [History] Metoclopramide HCl [Reglan] 10 mg PO QIDACANDBED 03/29/17 [History] Tamsulosin HCl 0.4 mg PO DAILY 03/29/17 [History] Insulin Pump Syringe, 3 mL [Minimed [place]] 1 each MC ASDIRECTED 04/04/17 [History] Isosorbide Mononitrate [Isosorbide Mononitrate ER] 120 mg PO DAILY 09/09/17 [History] Aspirin [Halfprin] 81 mg PO DAILY 12/03/19 [History] Gabapentin [Neurontin] 300 mg PO BID 12/03/19 [History] Losartan [Cozaar] 100 mg PO DAILY 12/03/19 [History] Acetaminophen 1,000 mg PO Q6H PRN 12/08/19 [History] Cyclobenzaprine [Flexeril] 10 mg PO BID PRN 12/08/19 [History] Warfarin [Coumadin] 1 mg PO ASDIRECTED 12/08/19 [History] Dicyclomine HCl [Bentyl] 10 mg PO DAILY 04/10/20 [History] FLUoxetine [PROzac] 20 mg PO DAILY 04/10/20 [History] Famotidine 40 mg PO BID 04/10/20 [History] Melatonin 10 mg PO BEDTIME PRN 04/10/20 [History] Mometasone/Formoterol [Dulera 200 MCG/5 MCG] 2 puff INH BID 04/10/20 [History] Rizatriptan Benzoate [Rizatriptan] 10 mg PO DAILY PRN 04/10/20 [History] Clopidogrel [Plavix] 75 mg PO DAILY 09/02/20 [History] LORazepam [Ativan] 0.5 mg PO TID PRN 09/02/20 [History] predniSONE [Prednisone] 10 mg PO DAILY 09/02/20 [History] Fluticasone/Umeclidin/[place] [Trelegy Ellipta 100-62.5-25] 1 each IH DAILY 09/03/20 [Rx] Umeclidinium [place] [Incruse Ellipta*] 1 puff INH DAILY 09/03/20 [History] Warfarin [Coumadin] 2 mg PO ASDIRECTED 09/03/20 [History] Past Medical History - Past Health History Medical/Surgical History: Denies Medical/Surgical History HEENT History: Reports: Cataract, Impaired Vision, Other (See Below) Other HEENT History: Lu's esophagus Cardiovascular History: Reports: Afib, Angina, Automatic Implantable Cardioverter Defibrillators, High Cholesterol, Hypertension, Pacemaker, SOB on Exertion Other Cardiovascular History: Ablation in July,, angiogram 07/25/2017 Respiratory History: Reports: PE, Pneumonia, Recurrent, Sleep Apnea, SOB Other Respiratory History: wears a cpap at night Gastrointestinal History: Reports: Bowel Obstruction, Chronic Constipation, GERD, Other (See Below) Other Gastrointestinal History: duodenal ulcer Genitourinary History: Reports: Renal Calculus, Other (See Below) Other Genitourinary History: prostate stent placed 10/01/2016 Musculoskeletal History: Reports: Back Pain, Chronic Other Musculoskeletal History: Neck pain causing migraines Neurological History: Reports: Migraines Other Neuro History: Patient had vertebrae in neck fused. Resolved some or most of headaches. Psychiatric History: Reports: Depression, Emotional Problems Endocrine/Metabolic History: Reports: Diabetes, Type II, Obesity/BMI 30+ Other Endocrine/Metabolic History: pt has insulin pump Hematologic History: Reports: B12 Deficiency, Blood Transfusion(s) Oncologic (Cancer) History: Reports: None Dermatologic History: Reports: Other (See Below) Other Dermatologic History: Had pre-cancer lesion removed to R arm. Has lesion to L wrist. - Infectious Disease History Infectious Disease History: Reports: Chicken Pox, Measles, Rubella - Past Surgical History Head Surgeries/Procedures: Reports: None HEENT Surgical History: Reports: Tonsillectomy Other HEENT Surgeries/Procedures: C3 and C4 fusion- 2014 Cardiovascular Surgical History: Reports: Cardiac Ablation, Pacer Other Cardiovascular Surgeries/Procedures: Ablation in 2014 Respiratory Surgical History: Reports: None GI Surgical History: Reports: Colonoscopy, Hernia, Inguinal, Other (See Below) Other GI Surgeries/Procedures: laproscopic sx for infestigation of constipation issues Male Surgical History: Reports: Kidney Stone Extraction, Lithotripsy (ESWL) Endocrine Surgical History: Reports: None Neurological Surgical History: Reports: C-Spine, Spinal Fusion Other Neurological Surgeries/Procedures: Woke this Am with CARDONA - currently rates at 9.5/10 Musculoskeletal Surgical History: Reports: Knee Replacement Other Musculoskeletal Surgeries/Procedures:: C3-4 vertebral fusion Social & Family History - Family History Family Medical History: No Pertinent Family History HEENT: Reports: Cataract Cardiac: Reports: [place] Respiratory: Reports: COPD GI: Reports: None : Reports: None Endocrine/Metabolic: Reports: Diabetes, type II Oncologic: Reports: Brain, Colon, Lung - Caffeine Use Caffeine Use: Reports: Coffee Other Caffeine Use: diet coke - 3-4 cans /day - Living Situation & Occupation Living situation: Reports: Occupation: Unemployed ED ROS GENERAL - Review of Systems Review Of Systems: See Below Constitutional: Reports: No Symptoms HEENT: Reports: No Symptoms Respiratory: Reports: No Symptoms Cardiovascular: Reports: No Symptoms Endocrine: Reports: No Symptoms GI/Abdominal: Reports: Abdominal Pain Musculoskeletal: Reports: No Symptoms Skin: Reports: No Symptoms Neurological: Reports: No Symptoms ED EXAM, GI/ABD - Physical Exam Exam: See Below Exam Limited By: No Limitations General Appearance: Alert, WD/WN, Mild Distress Eyes: Bilateral: EOMI Respiratory/Chest: No Respiratory Distress, Lungs Clear Cardiovascular: Normal Peripheral Pulses, Regular Rate, Rhythm GI/Abdominal Exam: Tender (mild epigastric discomfort ), Other (obese). No: Rebound Extremities: Normal Inspection Neurological: Alert, Oriented #1 Interpretation EKG Date: 12/05/20 Rhythm: NSR [place]: Normal P-Wave: Present QRS: Normal ST-T: Normal QT: Normal Comparison: No Change Course - Vital Signs Last Recorded V/S: Last Vital Signs Temp 36.8 C 12/05/20 21:59 Pulse 67 12/06/20 02:30 Resp 19 12/06/20 02:30 BP 139/65 12/06/20 02:30 Pulse Ox 94 L 12/06/20 02:30 - Orders/Labs/Meds Labs: Laboratory Tests 12/06/20 12/06/20 Range/Units 00:18 00:19 WBC 11.0 (4.0-11.0) K/uL RBC 4.64 (4.50-6.50) M/uL Hgb 13.4 (13.0-18.0) g/dL Hct 40.1 (40.0-54.0) % MCV 86 (76-96) fL MCH 28.9 (27.0-32.0) pg MCHC 33.4 (31.0-35.0) g/dL RDW 14.3 (11.0-16.0) % Plt Count 185 (150-400) K/uL MPV 11.9 H (6.0-10.0) fL Neut % (Auto) 58.2 (45.0-70.0) % Lymph % (Auto) 32.1 (20.0-40.0) % [place] % (Auto) 8.3 (3.0-10.0) % Eos % (Auto) 0.9 L (1.0-5.0) % Baso % (Auto) 0.5 (0.0-0.5) % Neut # (Auto) 6.38 (2.00-7.50) K/uL Lymph # (Auto) 3.51 (1.50-4.00) K/uL [place] # (Auto) 0.91 H (0.20-0.80) K/uL Eos # (Auto) 0.10 (0.04-0.40) K/uL Baso # (Auto) 0.05 (0.02-0.10) K/uL Sodium 140 (136-145) mmol/L Potassium 4.4 D (3.5-5.1) mmol/L Chloride 103 (98-107) mmol/L Carbon Dioxide 25.2 (21.0-32.0) mmol/L Anion Gap 16.2 H (5.0-15.0) mmol/L BUN 21 (8-26) mg/dL Creatinine 1.25 (0.70-1.30) mg/dL Est Cr Clr Drug Dosing TNP Estimated GFR (MDRD) 57 L (>60) MLS/MIN BUN/Creatinine Ratio 16.8 (6-25) Glucose 245 H (74-100) mg/dL Calcium 8.5 (8.5-10.1) mg/dL Troponin I < 0.017 (0.000-0.060) ng/mL Lipase 88 D (73-393) U/L Meds: Medications Discontinued Medications Generic Name Dose Route Start Last Admin Trade Name Freq PRN Reason Stop Dose Admin Al Hydroxide/Mg Hydroxide 30 ml 12/05/20 22:16 12/05/20 22:25 Gi Cocktail Oral Solution 30 Ml PO 12/05/20 22:17 30 ml ONETIME ONE Administration Promethazine HCl 12.5 mg/ 50.5 mls @ 200 mls/hr 12/06/20 02:08 12/06/20 02:30 Sodium Chloride IV 12/06/20 02:23 200 mls/hr NOW STA Administration Prochlorperazine Edisylate 10 52 mls @ 150 mls/hr 12/06/20 00:30 mg/ Sodium Chloride IV 12/06/20 00:50 ONETIME ONE Morphine Sulfate 4 mg 12/06/20 02:07 12/06/20 02:28 Morphine 4 Mg/Ml Vial IVPUSH 12/06/20 02:08 4 mg ONETIME ONE Administration Morphine Sulfate Confirm 12/06/20 02:24 12/06/20 02:49 Morphine 2 Mg/Ml Syringe Administered 12/06/20 02:25 Not Given Dose 4 mg .ROUTE .STK-MED ONE Nitroglycerin 0.4 mg 12/05/20 22:16 12/05/20 22:17 Nitroglycerin 0.4 Mg Tab.Sl SL 12/05/20 22:17 0.4 mg ONETIME ONE Administration Ondansetron HCl 4 mg 12/05/20 22:16 12/05/20 22:27 Ondansetron 4 Mg Tab.Dis PO 12/05/20 22:17 4 mg ONETIME ONE Administration Prochlorperazine Edisylate Confirm 12/06/20 00:39 12/06/20 00:42 Prochlorperazine 10 Mg/2 Ml Sdv Administered 12/06/20 00:40 Not Given Dose 10 mg .ROUTE .STK-MED ONE Promethazine HCl Confirm 12/06/20 02:24 12/06/20 02:49 Promethazine 25 Mg/Ml Sdv Administered 12/06/20 02:25 Not Given Dose 25 mg .ROUTE .STK-MED ONE Simethicone 160 mg 12/05/20 22:17 12/05/20 23:14 Simethicone 80 Mg Tab.Chew PO 12/05/20 22:18 160 mg ONETIME ONE Administration - Re-Assessments/Exams Free Text/Narrative Re-Assessment/Exam: vitals wnl labs - no leukocytosis and normal BMP. was given zofran and GI cocktail./ Minimal improvement of discomfort. Compazine has helped with nausea. CT abd/pelv was done - no e/o SBO, but enlarged gall bladder with small multiple stones. no surrounding fluids. pain was controlled with IV morphine tolerated PO intake and was d/cd home with a diagnosis of biliary colic - plan to see his PCP for a referral to surgery as outpatient. Departure - Departure Time of Disposition: 02:00 Disposition: Home, Self-Care 01 Condition: Good Clinical Impression: Biliary colic, Obesity (BMI 30.0-34.9) - Discharge Information *PRESCRIPTION DRUG MONITORING PROGRAM REVIEWED*: Not Applicable *COPY OF PRESCRIPTION DRUG MONITORING REPORT IN PATIENT KAVON: Not Applicable Instructions: Cholelithiasis Referrals: PCP,None [Primary Care Provider] - Forms: ED Department Discharge Additional Instructions: - follow up with your PCP in 1-7 days to discuss your gall bladder stones - avoid fatty and oily food as it can trigger pain attacks - take Tylenol as needed for pain - return to the ER if fever or worsening of symptoms - Problem List & Annotations (1) Obesity (BMI 30.0-34.9) SNOMED Code(s): 945313385021842 Code(s): E66.9 - OBESITY, UNSPECIFIED Status: Chronic Priority: Medium (2) Gall bladder stones SNOMED Code(s): 142290883 Code(s): K80.20 - CALCULUS OF GALLBLADDER W/O CHOLECYSTITIS W/O OBSTRUCTION Status: Resolved Priority: Medium - Problem List Review Problem List Initiated/Reviewed/Updated: Yes - Assessment/Plan Plan: avoid fatty/oily food follow up with your PCP - ask for a referral to surgery for gallbladder removal return to the ER if symptoms fo worse or any concerns
[2020-12-05] MEDS: GI Cocktail Oral Solution 30 ML PO ONE (22:25)
[2020-12-05] MEDS: Ondansetron 4 MG Tab.DIS PO ONE (22:27)
[2020-12-05] MEDS: Simethicone 80 MG Tab.Chew PO ONE (23:14)
[2020-12-06] MEDS ORDERED: Prochlorperazine 10 MG in Sodium Chloride 0.9% 50 ML IV ONE ×4 (00:30)
[2020-12-06] MEDS: Prochlorperazine 10 MG/2 ML SDV ONE (00:42)
[2020-12-06] MEDS: Morphine 4 MG/ML VIAL IVPUSH ONE (02:28)
[2020-12-06] MEDS: Promethazine 12.5 MG in Sodium Chloride 0.9% 50 ML IV STA (02:30)
[2020-12-06] MEDS: Promethazine 25 MG/ML SDV ONE (02:49)
[2020-12-06] MEDS: Morphine 2 MG/ML SYRINGE ONE (02:49)
[2020-12-06 07:37] VITALS: BP 139/65; PULSE 67
--- NOTE | 2020-12-06 09:08 | CT ---
Date of Service: 12/06/20 Clinical Data: emesis UNENHANCED ABDOMEN AND PELVIC CT: Multislice axial acquisition without IV or oral contrast was performed. Comparison is made to a prior exam dated 03/10/18. There are mild atelectatic changes in the dependent portion of both lower lungs. The lung bases are otherwise clear. There are cardiac pacer wires noted within the heart. The heart size is normal. There is mild diffuse fatty infiltration in the liver. There is a 1 cm low- density focus in the right lobe of the liver which is most likely a cyst. No other focal hepatic lesions. The gallbladder is moderately distended There is subtle hyperdense material in its dependent portion suggesting the possibility of small gallstones. Gallbladder ultrasound is recommended. No pericholecystic fluid. The spleen appears normal. The pancreas is mildly atrophic, otherwise unremarkable. The right and left adrenals appear normal. There is atrophy of both kidneys. There is a small nonobstructing renal calculus on the right. The right and left kidneys otherwise appear normal. No hydronephrosis or hydroureter. The bladder is partially fluid filled. It appears normal. The prostate is mildly enlarged. There is a moderate amount of stool present throughout the colon. No free air. No free fluid. No dilated loops of bowel. No adenopathy. No aortic aneurysm. There is degenerative disk disease throughout the lower thoracic and lumbar spine. [id number] [facility]
== END 2020-12-06 03:03 | disposition home or self-care (01) ==
LOC: LB.ED 21:52
DX: K80.50 Calculus of bile duct without cholangitis or cholecystitis without obstruction (principal); I48.91 Unspecified atrial fibrillation; K21.9 Gastro-esophageal reflux disease without esophagitis; E11.9 Type 2 diabetes mellitus without complications; E66.9 Obesity, unspecified; Z68.30 Body mass index [BMI] 30.0-30.9, adult; Z79.899 Other long term (current) drug therapy; Z79.01 Long term (current) use of anticoagulants; Z79.02 Long term (current) use of antithrombotics/antiplatelets; Z79.82 Long term (current) use of aspirin; Z95.810 Presence of automatic (implantable) cardiac defibrillator
CPT/HCPCS: 36415; 74176; 80048; 83690; 84484; 85025; 96374; 96375; 99283; 99284-25; A9270-GY; J2270; J2550

== ENCOUNTER 2020-12-06 12:33 | Emergency (ER) | payer MEDICARE ==
[2020-12-06] MEDS ORDERED: Ketorolac 60 MG/2 ML SDV IVPUSH ONE (12:54)
[2020-12-06] MEDS ORDERED: Sodium Chloride 0.9% 10 ML Syringe FLUSH PRN (12:54)
[2020-12-06] MEDS ORDERED: Ondansetron 4 MG/2 ML SDV IVPUSH ONE (12:54)
--- NOTE | 2020-12-06 12:55 | EDM.PDOC ---
ED HPI GENERAL MEDICAL PROBLEM - General Chief Complaint: Gastrointestinal Problem Stated Complaint: VOMITING, SHORNESS OF BREATH Time Seen by Provider: 12/06/20 12:55 Source of Information: Reports: Patient History Limitations: Reports: No Limitations - History of Present Illness INITIAL COMMENTS - FREE TEXT/NARRATIVE: patient returned to the ER for persistent nausea and epigastric discomfort. Was diagnosed earlier with gall stone - pain was controlled and was dcd home - had an appointment to see his PCP tomorrow for a referral to surgery. But pain persisted - as well as nausea - couldn't keep food down. Reports low grade fever and chills. Onset: Sudden Duration: Hour(s): (24) Location: Reports: Abdomen Quality: Reports: Sharp Improves with: Reports: None Worsens with: Reports: Eating - Related Data Allergies Allergy/AdvReac Type Severity Reaction Status Date / Time caffeine Allergy Dizziness Verified 12/06/20 02:08 coffee (Coffea arabica) Allergy Headache Verified 12/06/20 02:08 nifedipine [From Procardia] AdvReac Mild Constipatio Verified 12/06/20 02:08 n Home Meds: Home Meds Omeprazole 20 mg PO DAILY 05/26/15 [History] atorvaSTATin [Lipitor] 80 mg PO BEDTIME 05/26/15 [History] Metoprolol Succinate [Toprol XL] 50 mg PO DAILY 05/25/16 [History] Metoclopramide HCl [Reglan] 10 mg PO QIDACANDBED 03/29/17 [History] Tamsulosin HCl 0.4 mg PO DAILY 03/29/17 [History] Insulin Pump Syringe, 3 mL [Minimed [place]] 1 each MC ASDIRECTED 04/04/17 [History] Isosorbide Mononitrate [Isosorbide Mononitrate ER] 120 mg PO DAILY 09/09/17 [History] Aspirin [Halfprin] 81 mg PO DAILY 12/03/19 [History] Gabapentin [Neurontin] 300 mg PO BID 12/03/19 [History] Losartan [Cozaar] 100 mg PO DAILY 12/03/19 [History] Acetaminophen 1,000 mg PO Q6H PRN 12/08/19 [History] Cyclobenzaprine [Flexeril] 10 mg PO BID PRN 12/08/19 [History] Warfarin [Coumadin] 1 mg PO ASDIRECTED 12/08/19 [History] Dicyclomine HCl [Bentyl] 10 mg PO DAILY 04/10/20 [History] FLUoxetine [PROzac] 20 mg PO DAILY 04/10/20 [History] Famotidine 40 mg PO BID 04/10/20 [History] Melatonin 10 mg PO BEDTIME PRN 04/10/20 [History] Mometasone/Formoterol [Dulera 200 MCG/5 MCG] 2 puff INH BID 04/10/20 [History] Rizatriptan Benzoate [Rizatriptan] 10 mg PO DAILY PRN 04/10/20 [History] Clopidogrel [Plavix] 75 mg PO DAILY 09/02/20 [History] LORazepam [Ativan] 0.5 mg PO TID PRN 09/02/20 [History] predniSONE [Prednisone] 10 mg PO DAILY 09/02/20 [History] Fluticasone/Umeclidin/Vilanter [Trelegy Ellipta 100-62.5-25] 1 each IH DAILY 09/03/20 [Rx] Umeclidinium [place] [Incruse Ellipta*] 1 puff INH DAILY 09/03/20 [History] Warfarin [Coumadin] 2 mg PO ASDIRECTED 09/03/20 [History] Past Medical History - Past Health History Medical/Surgical History: Denies Medical/Surgical History HEENT History: Reports: Cataract, Impaired Vision, Other (See Below) Other HEENT History: Lu's esophagus Cardiovascular History: Reports: Afib, Angina, Automatic Implantable Cardioverter Defibrillators, High Cholesterol, Hypertension, Pacemaker, SOB on Exertion Other Cardiovascular History: Ablation in July,, angiogram 07/25/2017 Respiratory History: Reports: PE, Pneumonia, Recurrent, Sleep Apnea, SOB Other Respiratory History: wears a cpap at night Gastrointestinal History: Reports: Bowel Obstruction, Chronic Constipation, GERD, Other (See Below) Other Gastrointestinal History: duodenal ulcer Genitourinary History: Reports: Renal Calculus, Other (See Below) Other Genitourinary History: prostate stent placed 10/01/2016 Musculoskeletal History: Reports: Back Pain, Chronic Other Musculoskeletal History: Neck pain causing migraines Neurological History: Reports: Migraines Other Neuro History: Patient had vertebrae in neck fused. Resolved some or most of headaches. Psychiatric History: Reports: Depression, Emotional Problems Endocrine/Metabolic History: Reports: Diabetes, Type II, Obesity/BMI 30+ Other Endocrine/Metabolic History: pt has insulin pump Hematologic History: Reports: B12 Deficiency, Blood Transfusion(s) Oncologic (Cancer) History: Reports: None Dermatologic History: Reports: Other (See Below) Other Dermatologic History: Had pre-cancer lesion removed to R arm. Has lesion to L wrist. - Infectious Disease History Infectious Disease History: Reports: Chicken Pox, Measles, Rubella - Past Surgical History Head Surgeries/Procedures: Reports: None HEENT Surgical History: Reports: Tonsillectomy Other HEENT Surgeries/Procedures: C3 and C4 fusion- 2014 Cardiovascular Surgical History: Reports: Cardiac Ablation, Pacer Other Cardiovascular Surgeries/Procedures: Ablation in 2014 Respiratory Surgical History: Reports: None GI Surgical History: Reports: Colonoscopy, Hernia, Inguinal, Other (See Below) Other GI Surgeries/Procedures: laproscopic sx for infestigation of constipation issues Male Surgical History: Reports: Kidney Stone Extraction, Lithotripsy ([facility]) Endocrine Surgical History: Reports: None Neurological Surgical History: Reports: C-Spine, Spinal Fusion Other Neurological Surgeries/Procedures: Woke this Am with CARDONA - currently rates at 9.5/10 Musculoskeletal Surgical History: Reports: Knee Replacement Other Musculoskeletal Surgeries/Procedures:: C3-4 vertebral fusion Social & Family History - Family History Family Medical History: No Pertinent Family History HEENT: Reports: Cataract Cardiac: Reports: [place] Respiratory: Reports: COPD GI: Reports: None : Reports: None Endocrine/Metabolic: Reports: Diabetes, type II Oncologic: Reports: Brain, Colon, Lung - Caffeine Use Caffeine Use: Reports: Coffee Other Caffeine Use: diet coke - 3-4 cans /day - Living Situation & Occupation Living situation: Reports: Occupation: Unemployed ED ROS GENERAL - Review of Systems Review Of Systems: See Below Constitutional: Reports: Chills HEENT: Reports: No Symptoms Respiratory: Reports: No Symptoms Cardiovascular: Reports: No Symptoms GI/Abdominal: Reports: Abdominal Pain Musculoskeletal: Reports: No Symptoms Neurological: Reports: No Symptoms Psychiatric: Reports: No Symptoms ED EXAM, GI/ABD - Physical Exam Exam: See Below Exam Limited By: No Limitations General Appearance: Alert, Mild Distress Eyes: Bilateral: EOMI Respiratory/Chest: No Respiratory Distress, Lungs Clear Cardiovascular: Normal Peripheral Pulses, Regular Rate, Rhythm GI/Abdominal Exam: Tender (epigastric area), Other (obese) Neurological: Alert, Oriented Course - Vital Signs Last Recorded V/S: Last Vital Signs Temp 37.3 C 12/06/20 16:07 Pulse 96 12/06/20 16:07 Resp 18 12/06/20 16:07 BP 126/68 12/06/20 16:07 Pulse Ox 93 L 12/06/20 15:04 - Orders/Labs/Meds Orders: Active Orders 24 hr Category Date Time Status Sodium Chloride 0.9% [Normal Saline] 1,000 ml Med 12/06/20 14:00 Active IV ASDIRECTED Sodium Chloride 0.9% [Saline Flush] Med 12/06/20 12:54 Active 10 ml FLUSH ASDIRECTED PRN Saline Lock Insert [OM.PC] Routine Oth 12/06/20 12:54 Ordered Medication Orders Sodium Chloride (Normal Saline) 1,000 mls @ 333 mls/hr IV ASDIRECTED ZEV Last Admin: 12/06/20 14:08 Dose: 333 mls/hr Documented by: PALOMA Sodium Chloride (Sodium Chloride 0.9% 10 Ml Syringe) 10 ml FLUSH ASDIRECTED PRN PRN Reason: Keep Vein Open Labs: Laboratory Tests 12/06/20 12/06/20 12/06/20 Range/Units 13:10 13:10 13:52 WBC 14.2 H D (4.0-11.0) K/uL RBC 4.80 (4.50-6.50) M/uL Hgb 14.0 (13.0-18.0) g/dL Hct 41.1 (40.0-54.0) % MCV 86 (76-96) fL MCH 29.2 (27.0-32.0) pg MCHC 34.1 (31.0-35.0) g/dL RDW 14.5 (11.0-16.0) % Plt Count 178 (150-400) K/uL MPV 12.3 H (6.0-10.0) fL Neut % (Auto) 72.1 H (45.0-70.0) % Lymph % (Auto) 16.6 L (20.0-40.0) % Coal % (Auto) 11.0 H (3.0-10.0) % Eos % (Auto) 0.1 L (1.0-5.0) % Baso % (Auto) 0.2 (0.0-0.5) % Neut # (Auto) 10.22 H (2.00-7.50) K/uL Lymph # (Auto) 2.35 (1.50-4.00) K/uL Coal # (Auto) 1.56 H (0.20-0.80) K/uL Eos # (Auto) 0.01 L (0.04-0.40) K/uL Baso # (Auto) 0.03 (0.02-0.10) K/uL Sodium 137 (136-145) mmol/L Potassium 3.6 (3.5-5.1) mmol/L Chloride 98 (98-107) mmol/L Carbon Dioxide 26.0 (21.0-32.0) mmol/L Anion Gap 16.6 H (5.0-15.0) mmol/L BUN 19 (8-26) mg/dL Creatinine 1.52 H D (0.70-1.30) mg/dL Est Cr Clr Drug Dosing TNP Estimated GFR (MDRD) 45 L (>60) MLS/MIN BUN/Creatinine Ratio 12.5 (6-25) Glucose 275 H (74-100) mg/dL Calcium 8.6 (8.5-10.1) mg/dL Total Bilirubin 3.1 H D (0.0-1.0) mg/dL AST 357 H (15-37) U/L ALT 332 H (12-78) U/L Alkaline Phosphatase 176 H (46-116) U/L C-Reactive Protein 12.3 H (0.0-3.0) mg/L Total Protein 6.9 (6.4-8.2) g/dL Albumin 3.3 L (3.4-5.0) g/dL Globulin 3.6 (2.2-4.2) g/dL Albumin/Globulin Ratio 0.9 (0.8-2.0) Amylase 19 L D (25-115) U/L Lipase 56 L D (73-393) U/L SARS-CoV-2 RNA (ASHLEY) (NEGATIVE) 12/06/20 Range/Units 14:40 WBC (4.0-11.0) K/uL RBC (4.50-6.50) M/uL Hgb (13.0-18.0) g/dL Hct (40.0-54.0) % MCV (76-96) fL MCH (27.0-32.0) pg MCHC (31.0-35.0) g/dL RDW (11.0-16.0) % Plt Count (150-400) K/uL MPV (6.0-10.0) fL Neut % (Auto) (45.0-70.0) % Lymph % (Auto) (20.0-40.0) % Coal % (Auto) (3.0-10.0) % Eos % (Auto) (1.0-5.0) % Baso % (Auto) (0.0-0.5) % Neut # (Auto) (2.00-7.50) K/uL Lymph # (Auto) (1.50-4.00) K/uL Coal # (Auto) (0.20-0.80) K/uL Eos # (Auto) (0.04-0.40) K/uL Baso # (Auto) (0.02-0.10) K/uL Sodium (136-145) mmol/L Potassium (3.5-5.1) mmol/L Chloride (98-107) mmol/L Carbon Dioxide (21.0-32.0) mmol/L Anion Gap (5.0-15.0) mmol/L BUN (8-26) mg/dL Creatinine (0.70-1.30) mg/dL Est Cr Clr Drug Dosing Estimated GFR (MDRD) (>60) MLS/MIN BUN/Creatinine Ratio (6-25) Glucose (74-100) mg/dL Calcium (8.5-10.1) mg/dL Total Bilirubin (0.0-1.0) mg/dL AST (15-37) U/L ALT (12-78) U/L Alkaline Phosphatase (46-116) U/L C-Reactive Protein (0.0-3.0) mg/L Total Protein (6.4-8.2) g/dL Albumin (3.4-5.0) g/dL Globulin (2.2-4.2) g/dL Albumin/Globulin Ratio (0.8-2.0) Amylase (25-115) U/L Lipase (73-393) U/L SARS-CoV-2 RNA (ASHLEY) Negative (NEGATIVE) Meds: Medications Generic Name Dose Route Start Last Admin Trade Name Awilda PRN Reason Stop Dose Admin Sodium Chloride 1,000 mls @ 333 mls/hr 12/06/20 14:00 12/06/20 14:08 Normal Saline IV 333 mls/hr ASDIRECTED ZEV Administration Sodium Chloride 10 ml 12/06/20 12:54 Sodium Chloride 0.9% 10 Ml Syringe FLUSH ASDIRECTED PRN Keep Vein Open Discontinued Medications Generic Name Dose Route Start Last Admin Trade Name Awilda PRN Reason Stop Dose Admin Ciprofloxacin 500 mg 12/06/20 13:46 12/06/20 13:56 Ciprofloxacin 500 Mg Tab PO 12/06/20 13:47 500 mg ONETIME ONE Administration Ketorolac Tromethamine 15 mg 12/06/20 12:54 12/06/20 13:18 Ketorolac 60 Mg/2 Ml Sdv IVPUSH 12/06/20 12:55 15 mg ONETIME ONE Administration Ketorolac Tromethamine Confirm 12/06/20 13:27 12/06/20 13:23 Ketorolac 30 Mg/Ml Sdv Administered 12/06/20 13:28 Not Given Dose 30 mg .ROUTE .STK-MED ONE Metronidazole 500 mg 12/06/20 13:46 12/06/20 13:53 Metronidazole 500 Mg Tab PO 12/06/20 13:47 500 mg ONETIME ONE Administration Metronidazole Confirm 12/06/20 14:00 12/06/20 13:56 Metronidazole 500 Mg Tab Administered 12/06/20 14:01 Not Given Dose 500 mg .ROUTE .STK-MED ONE Morphine Sulfate 4 mg 12/06/20 13:47 12/06/20 13:50 Morphine 4 Mg/Ml Vial IVPUSH 12/06/20 13:48 4 mg ONETIME ONE Administration Morphine Sulfate Confirm 12/06/20 13:59 12/06/20 13:56 Morphine 4 Mg/Ml Vial Administered 12/06/20 14:00 Not Given Dose 4 mg .ROUTE .STK-MED ONE Ondansetron HCl 8 mg 12/06/20 12:54 12/06/20 13:22 Ondansetron 4 Mg/2 Ml Sdv IVPUSH 12/06/20 12:55 8 mg ONETIME ONE Administration Ondansetron HCl Confirm 12/06/20 13:27 12/06/20 13:23 Ondansetron 4 Mg/2 Ml Sdv Administered 12/06/20 13:28 Not Given Dose 8 mg .ROUTE .STK-MED ONE - Re-Assessments/Exams Free Text/Narrative Re-Assessment/Exam: vitals - mild tachycardia to 105 BP 150/85 labs were repeated - showed WBC 14.5, AST/ALT 350, lipase/amylase WNL, TB 3.1 CT abd/pelv wo contrast - distended GB with multiple stones. pain controlled with IV morphine. Cipro/Flagyl PO were given \ contract nearby facilities in [facility] - no available bed. Patient was accepted to [facility] - spoke to Surgeon Dr. Anderson and Hospitalist Dr. Morel. Departure - Departure Time of Disposition: 16:19 Disposition: DC/Tfer to [facility] 02 Condition: Fair Clinical Impression: Cholecystitis - Discharge Information *PRESCRIPTION DRUG MONITORING PROGRAM REVIEWED*: Not Applicable *COPY OF PRESCRIPTION DRUG MONITORING REPORT IN PATIENT KAVON: Not Applicable Referrals: Hugo Dumas MD [Primary Care Provider] - Forms: ED Department Discharge Sepsis Event Note (ED) - Focused Exam Vital Signs: Vital Signs Temp Pulse Resp BP Pulse Ox 12/06/20 16:07 37.3 C 96 18 126/68 12/06/20 15:04 37.3 C 108 H 18 115/60 93 L 12/06/20 14:11 37.7 C 111 H 18 147/68 H 94 L 12/06/20 13:31 38.0 C 12/06/20 12:55 37.5 C 103 H 20 151/68 H 96 - Problem List & Annotations (1) Cholecystitis SNOMED Code(s): 57582454 Code(s): K81.9 - CHOLECYSTITIS, UNSPECIFIED Status: Acute Priority: Medium Current Visit: Yes (2) Biliary colic SNOMED Code(s): 63899372 Code(s): K80.50 - CALCULUS OF BILE DUCT W/O CHOLANGITIS OR CHOLECYST W/O OBST Status: Acute Priority: Medium Current Visit: No - Problem List Review Problem List Initiated/Reviewed/Updated: Yes - My Orders Last 24 Hours: My Active Orders 12/06/20 12:54 Sodium Chloride 0.9% [Saline Flush] 10 ml FLUSH ASDIRECTED PRN Saline Lock Insert [OM.PC] Routine 12/06/20 14:00 Sodium Chloride 0.9% [Normal Saline] 1,000 ml IV ASDIRECTED - Assessment/Plan Last 24 Hours: My Active Orders 12/06/20 12:54 Sodium Chloride 0.9% [Saline Flush] 10 ml FLUSH ASDIRECTED PRN Saline Lock Insert [OM.PC] Routine 12/06/20 14:00 Sodium Chloride 0.9% [Normal Saline] 1,000 ml IV ASDIRECTED Plan: - IV pain control - antibiotics - transfer to OSH for surgery bed
[2020-12-06] MEDS ORDERED: Ketorolac 30 MG/ML SDV ONE (13:27)
[2020-12-06] MEDS ORDERED: Ondansetron 4 MG/2 ML SDV ONE (13:27)
[2020-12-06] MEDS ORDERED: metroNIDAZOLE 500 MG Tab PO ONE (13:46)
[2020-12-06] MEDS ORDERED: Ciprofloxacin 500 MG Tab PO ONE (13:46)
[2020-12-06] MEDS ORDERED: Morphine 4 MG/ML VIAL IVPUSH ONE ×2 (13:47→16:41)
[2020-12-06] MEDS ORDERED: Morphine 4 MG/ML VIAL ONE ×2 (13:59→16:53)
[2020-12-06] MEDS ORDERED: metroNIDAZOLE 500 MG Tab ONE (14:00)
[2020-12-06] MEDS ORDERED: Sodium Chloride 0.9% 1,000 ML IV SCH (14:00)
[2020-12-06 16:08] VITALS: BP 126/68; PULSE 96
== END 2020-12-06 17:15 ==
LOC: LB.ED 12:33
DX: K81.9 Cholecystitis, unspecified (principal); I48.91 Unspecified atrial fibrillation; E78.00 Pure hypercholesterolemia, unspecified; I10 Essential (primary) hypertension; K21.9 Gastro-esophageal reflux disease without esophagitis; E11.9 Type 2 diabetes mellitus without complications; E66.9 Obesity, unspecified; Z20.822 Contact with and (suspected) exposure to COVID-19; Z68.30 Body mass index [BMI] 30.0-30.9, adult; Z79.01 Long term (current) use of anticoagulants; Z79.899 Other long term (current) drug therapy; Z91.048 Other nonmedicinal substance allergy status
CPT/HCPCS: 36415; 80053; 82150; 83690; 85025; 86140; 96374; 96375; 96376; 99284; A0425; A0429; A9270; J1885; J2270; J2405; J7030; U0002

== ENCOUNTER 2020-12-19 10:09 | Inpatient (IN) | payer MEDICARE ==
[2020-12-19] MEDS ORDERED: Tuberculin, PPD 5 Units/0.1 ML 1 ML MDV IDERM ONE (14:32)
[2020-12-19] MEDS ORDERED: Acetaminophen 325 MG Tab PO PRN (14:50)
[2020-12-19] MEDS ORDERED: Cyclobenzaprine 10 MG Tab PO PRN (14:55)
[2020-12-19] MEDS ORDERED: LORazepam 0.5 MG Tab PO PRN (15:22)
[2020-12-19] MEDS ORDERED: Nitroglycerin 0.4 MG Tab.SL SL PRN (15:27)
[2020-12-19] MEDS ORDERED: RIZATRIPTAN 10MG TABLET PO SCH (15:30)
[2020-12-19] MEDS ORDERED: Metoclopramide 10 MG Tab PO SCH (15:30)
[2020-12-19] MEDS ORDERED: Albuterol 8 GM Inhaler INH PRN (15:35)
[2020-12-19] MEDS ORDERED: Insulin Aspart 100 Units/ML 3 ML Pen SUBCUT PRN (15:41)
--- NOTE | 2020-12-19 17:11 | PCM.HP.2 ---
H&P History of Present Illness - General Date of Service: 12/19/20 Admit Problem/Dx: Admission Diagnosis/Problem Admission Diagnosis/Problem Weakness Source of Information: Patient History Limitations: Reports: No Limitations - History of Present Illness Initial Comments - Free Text/Narative: patient was transferred from OSH to swing bed for rehab. He has a complex medical history, including heart disease, morbid obesity and chronic warfarin use who recently developed ascending cholangitis and underwent ERCP with stent placement followed by laparoscopic cholecystectomy. Patient spent around 12 days at OSH for recovery and was deemed too weak to be d/cd back home - so he was transferred to a swing bed for further rehab. No CP, SOB, no fever or chills. Mild abdominal pain that is controlled with tramadol.. He was put on Lovenox as bridging to Coumadin. patient has a h/o diabetes, CHF, and a h/o PE. Also severe GERD/Lu's esophagus. - Related Data Allergies/Adverse Reactions: Allergies Allergy/AdvReac Type Severity Reaction Status Date / Time caffeine Allergy Dizziness Verified 12/19/20 14:49 coffee (Coffea arabica) Allergy Headache Verified 12/19/20 14:49 nifedipine [From Procardia] AdvReac Mild Constipatio Verified 12/19/20 14:49 n Home Medications: Home Meds Omeprazole 20 mg PO BID 05/26/15 [History] atorvaSTATin [Lipitor] 80 mg PO BEDTIME 05/26/15 [History] Metoprolol Succinate [Toprol XL] 75 mg PO DAILY 05/25/16 [History] Metoclopramide HCl [Reglan] 10 mg PO QIDACANDBED 03/29/17 [History] Tamsulosin HCl 0.4 mg PO DAILY 03/29/17 [History] Insulin Pump Syringe, 3 mL [Minimed [place]que] 1 each MC ASDIRECTED 04/04/17 [History] Isosorbide Mononitrate [Isosorbide Mononitrate ER] 120 mg PO DAILY 09/09/17 [History] Aspirin [Halfprin] 81 mg PO DAILY 12/03/19 [History] Gabapentin [Neurontin] 300 mg PO DAILY 12/03/19 [History] Losartan [Cozaar] 100 mg PO DAILY 12/03/19 [History] Acetaminophen 650 mg PO ASDIRECTED PRN 12/08/19 [History] Cyclobenzaprine [Flexeril] 10 mg PO TID PRN 12/08/19 [History] FLUoxetine [PROzac] 20 mg PO DAILY 04/10/20 [History] Famotidine 40 mg PO BID 04/10/20 [History] Mometasone/Formoterol [Dulera 200 MCG/5 MCG] 2 puff INH BID 04/10/20 [History] Rizatriptan Benzoate [Rizatriptan] 10 mg PO DAILY PRN 04/10/20 [History] LORazepam [Ativan] 0.5 mg PO TID PRN 09/02/20 [History] Fluticasone/Umeclidin/Vilanter [Trelegy Ellipta 100-62.5-25] 1 each IH DAILY 09/03/20 [Rx] Umeclidinium [place] [Incruse Ellipta*] 1 puff INH DAILY 09/03/20 [History] Warfarin [Coumadin] 1 mg PO ASDIRECTED 09/03/20 [History] Famotidine [Pepcid] 40 mg PO DAILY 12/19/20 [History] Furosemide 20 mg pe PO DAILY 12/19/20 [History] Insulin Aspart [NovoLOG] 45 units SQ TIDAC 12/19/20 [History] Insulin Glarg,Human.Rec.Analog [Lantus Solostar] 75 unit SUBCUT BID 12/19/20 [History] Meclizine HCl 25 mg PO Q4HR PRN 12/19/20 [History] Melatonin 10 mg PO BEDTIME PRN 12/19/20 [History] Metoclopramide HCl [Reglan] 10 mg PO DAILY 12/19/20 [History] Nitroglycerin [Nitrostat] 0.4 mg PO ASDIRECTED 12/19/20 [History] metOLazone [Metolazone] 2.5 mg PO ASDIRECTED 12/19/20 [History] traMADol [Ultram] 50 mg PO ASDIRECTED PRN 12/19/20 [History] Past Medical History - Past Health History Medical/Surgical History: Denies Medical/Surgical History HEENT History: Reports: Cataract, Impaired Vision, Other (See Below) Other HEENT History: Lu's esophagus Cardiovascular History: Reports: Afib, Angina, Automatic Implantable Cardioverter Defibrillators, High Cholesterol, Hypertension, Pacemaker, SOB on Exertion Other Cardiovascular History: Ablation in July,, angiogram 07/25/2017 Respiratory History: Reports: PE, Pneumonia, Recurrent, Sleep Apnea, SOB Other Respiratory History: wears a cpap at night Gastrointestinal History: Reports: Bowel Obstruction, Chronic Constipation, GERD, Other (See Below) Other Gastrointestinal History: duodenal ulcer Genitourinary History: Reports: Renal Calculus, Other (See Below) Other Genitourinary History: prostate stent placed 10/01/2016 Musculoskeletal History: Reports: Back Pain, Chronic Other Musculoskeletal History: Neck pain causing migraines Neurological History: Reports: Migraines Other Neuro History: Patient had vertebrae in neck fused. Resolved some or most of headaches. Psychiatric History: Reports: Depression, Emotional Problems Endocrine/Metabolic History: Reports: Diabetes, Type II, Obesity/BMI 30+ Other Endocrine/Metabolic History: pt has insulin pump Hematologic History: Reports: B12 Deficiency, Blood Transfusion(s) Oncologic (Cancer) History: Reports: None Dermatologic History: Reports: Other (See Below) Other Dermatologic History: Had pre-cancer lesion removed to R arm. Has lesion to L wrist. - Infectious Disease History Infectious Disease History: Reports: Chicken Pox, Measles, Rubella - Past Surgical History Head Surgeries/Procedures: Reports: None HEENT Surgical History: Reports: Tonsillectomy Other HEENT Surgeries/Procedures: C3 and C4 fusion- 2014 Cardiovascular Surgical History: Reports: Cardiac Ablation, Pacer Other Cardiovascular Surgeries/Procedures: Ablation in 2014 Respiratory Surgical History: Reports: None GI Surgical History: Reports: Colonoscopy, Hernia, Inguinal, Other (See Below) Other GI Surgeries/Procedures: laproscopic sx for infestigation of constipation issues Male Surgical History: Reports: Kidney Stone Extraction, Lithotripsy ([facility]) Endocrine Surgical History: Reports: None Neurological Surgical History: Reports: C-Spine, Spinal Fusion Other Neurological Surgeries/Procedures: Woke this Am with CARDONA - currently rates at 9.5/10 Musculoskeletal Surgical History: Reports: Knee Replacement Other Musculoskeletal Surgeries/Procedures:: C3-4 vertebral fusion Social & Family History - Family History Family Medical History: No Pertinent Family History HEENT: Reports: Cataract Cardiac: Reports: VT Respiratory: Reports: COPD GI: Reports: None : Reports: None Endocrine/Metabolic: Reports: Diabetes, type II Oncologic: Reports: Brain, Colon, Lung - Caffeine Use Caffeine Use: Reports: Coffee Other Caffeine Use: diet coke - 3-4 cans /day - Living Situation & Occupation Living situation: Reports: Occupation: Unemployed H&P Review of Systems - Review of Systems: Review Of Systems: See Below General: Reports: Malaise, Fatigue HEENT: Reports: No Symptoms Pulmonary: Reports: No Symptoms Cardiovascular: Reports: No Symptoms Gastrointestinal: Reports: No Symptoms Genitourinary: Reports: No Symptoms Psychiatric: Reports: No Symptoms Neurological: Reports: No Symptoms Exam - Exam Exam: See Below - Vital Signs Vital Signs: Last Vital Signs Temp 36.5 C 12/19/20 16:39 Pulse 78 12/19/20 16:39 Resp 18 12/19/20 16:39 BP 156/72 H 12/19/20 16:39 Pulse Ox 98 12/19/20 16:39 - Exam General: Alert, Oriented HEENT: PERRLA, Conjunctiva Clear Neck: Supple Lungs: Clear to Auscultation, Normal Respiratory Effort Cardiovascular: Regular Rate, Regular Rhythm GI/Abdominal Exam: Normal Bowel Sounds, Soft, Other (mild TTP RUQ - at sites of incisions, otherwise, normal ) Extremities: Normal Inspection - Patient Data Lab Results Last 24 hrs: Laboratory Results - last 24 hr 12/19/20 Range/Units 16:59 POC Glucose 177 H (74-110) mg/dL Result Diagrams: 12/20/20 08:16 12/20/20 08:16 Sepsis Event Note - Focused Exam Vital Signs: Vital Signs Temp Pulse Resp BP Pulse Ox 12/19/20 16:39 36.5 C 78 18 156/72 H 98 12/19/20 16:38 36.5 C 78 18 156/72 H 98 - Problem List (1) Cholecystitis SNOMED Code(s): 42240296 ICD Code: K81.9 - CHOLECYSTITIS, UNSPECIFIED Status: Resolved Priority: Medium Current Visit: No (2) Chronic kidney disease, stage 3 SNOMED Code(s): 885809965 ICD Code: N18.30 - CHRONIC KIDNEY DISEASE, STAGE 3 UNSPECIFIED Status: Ch ronic Priority: Medium Current Visit: No Qualifiers: Chronic kidney disease stage 3 subtype: stage 3b (GFR 30-44) Qualified Code(s): N18.32 - Chronic kidney disease, stage 3b (3) Diabetes mellitus SNOMED Code(s): 81385743 ICD Code: E11.9 - TYPE 2 DIABETES MELLITUS WITHOUT COMPLICATIONS Status: Chronic Priority: Medium Current Visit: No Qualifiers: Diabetes mellitus type: type 2 Diabetes mellitus complication status: without complication Qualified Code(s): E11.9 - Type 2 diabetes mellitus without complications (4) GERD (gastroesophageal reflux disease) SNOMED Code(s): 953342536 ICD Code: K21.9 - GASTRO-ESOPHAGEAL REFLUX DISEASE WITHOUT ESOPHAGITIS Status: Chronic Priority: Medium Current Visit: No Qualifiers: Esophagitis presence: with esophagitis Esophagitis bleeding: without hemorrhage Qualified Code(s): K21.00 - Gastro-esophageal reflux disease with esophagitis, without bleeding (5) Obesity (BMI 30.0-34.9) SNOMED Code(s): 760594050271227 ICD Code: E66.9 - OBESITY, UNSPECIFIED Status: Chronic Priority: Medium Current Visit: No Problem List Initiated/Reviewed/Updated: Yes Orders Last 24hrs: Active Orders 24 hr Category Date Time Status Admission Status [Patient Status] [ADT] Routine ADT 12/19/20 15:33 Active Vital Signs [RC] PER UNIT ROUTINE Care 12/19/20 14:34 Active Consult to Case Management/Collections Assistant [CONS] Cons 12/19/20 14:31 Active Routine OT Evaluation and Treatment [CONS] Routine Cons 12/19/20 16:00 Active PT Evaluation and Treatment [CONS] Routine Cons 12/19/20 16:00 Active Consistent Carbohydrate Diet [DIET] Diet 12/19/20 Dinner Ordered BASIC METABOLIC PANEL,BMP [CHEM] Routine Lab 12/20/20 07:30 Ordered CBC W/O DIFF,HEMOGRAM [HEME] Routine Lab 12/20/20 07:30 Ordered CULTURE MRSA SURVEY [RM] Routine Lab 12/19/20 14:33 Ordered INR,PT,PROTHROMBIN TIME [COAG] Routine Lab 12/20/20 07:30 Ordered Acetaminophen [TylenoL] Med 12/19/20 14:50 Active 650 mg PO Q4H PRN Albuterol [Ventolin HFA] Med 12/19/20 15:35 Active 8 gm INH Q4H PRN Aspirin [Halfprin] Med 12/20/20 08:00 Active 81 mg PO DAILY Cyclobenzaprine [Flexeril] Med 12/19/20 14:55 Active 10 mg PO TID PRN Enoxaparin [Lovenox] Med 12/19/20 20:00 Active 40 mg SUBCUT BID FLUoxetine [PROzac] Med 12/20/20 08:00 Active 20 mg PO DAILY Famotidine [Pepcid] Med 12/20/20 08:00 Active 40 mg PO DAILY Furosemide [Lasix] Med 12/20/20 08:00 Active 20 mg PO DAILY Furosemide [Lasix] Med 12/20/20 15:00 Active 20 mg PO DAILY@1500 Furosemide [Lasix] Med 12/20/20 15:00 Active 40 mg PO DAILY@1500 Gabapentin [Neurontin] Med 12/20/20 08:00 Active 300 mg PO DAILY Insulin Aspart [NovoLOG] Med 12/19/20 15:41 Active 1 unit SUBCUT ASDIRECTED PRN Insulin Aspart [NovoLOG] Med 12/19/20 18:00 Active 45 unit SUBCUT TIDMEALS Insulin Glarg,Human.Rec.Analog [LantUS Solostar] Med 12/19/20 20:00 Active 75 units SUBCUT BID Isosorbide Mononitrate [Imdur] Med 12/20/20 08:00 Active 120 mg PO DAILY LORazepam [Ativan] Med 12/19/20 15:22 Active 0.5 mg PO TID PRN Losartan [Cozaar] Med 12/20/20 08:00 Active 100 mg PO DAILY Meclizine [Antivert] Med 12/19/20 15:23 Active 25 mg PO Q4H PRN Melatonin Med 12/19/20 20:00 Active 10 mg PO BEDTIME Metoclopramide [Reglan] Med 12/19/20 17:00 Active 10 mg PO TIDAC Metoprolol Succinate [Toprol XL] Med 12/20/20 08:00 Active 75 mg PO DAILY Mometasone Furoate [Asmanex 220 MCG] Med 12/19/20 20:00 Active 1 puff INH BID Nitroglycerin [Nitrostat] Med 12/19/20 15:27 Active 0.4 mg SL ASDIRECTED PRN Non-Formulary Medication [NF Drug] Med 12/20/20 08:00 Active 1 each INH DAILY Non-Formulary Medication [NF Drug] Med 12/19/20 15:30 Active 1 each PO ASDIRECTED Omeprazole Med 12/19/20 20:00 Active 20 mg PO BID Tamsulosin [Flomax] Med 12/20/20 08:00 Active 0.4 mg PO DAILY Warfarin [Coumadin] Med 12/20/20 18:00 Active 1 mg PO MoTuWeFrSa@1800 Warfarin [Coumadin] Med 12/22/20 18:00 Active 2 mg PO SuTh@1800 atorvaSTATin [Lipitor] Med 12/20/20 08:00 Active 80 mg PO DAILY metOLazone [Zaroxolyn] Med 12/22/20 08:00 Active 2.5 mg PO MoTh traMADol [Ultram] Med 12/19/20 15:32 Active 50 mg PO Q8H PRN Resuscitation Status Routine Resus Stat 12/19/20 14:31 Ordered Medication Orders Acetaminophen (Acetaminophen 325 Mg Tab) 650 mg PO Q4H PRN PRN Reason: MILD PAIN Albuterol (Albuterol 8 Gm Inhaler) 8 gm INH Q4H PRN PRN Reason: Shortness of Breath Aspirin (Aspirin 81 Mg Tab.Ec) 81 mg PO DAILY [facility] Atorvastatin Calcium (Atorvastatin 80 Mg Tab) 80 mg PO DAILY [facility] Cyclobenzaprine HCl (Cyclobenzaprine 10 Mg Tab) 10 mg PO TID PRN PRN Reason: MUSCLE SPASM Enoxaparin Sodium (Enoxaparin 40 Mg/0.4 Ml Syringe) 40 mg SUBCUT BID [facility] Famotidine (Famotidine 20 Mg Tab) 40 mg PO DAILY [facility] Fluoxetine HCl (Fluoxetine 20 Mg Cap) 20 mg PO DAILY [facility] Furosemide (Furosemide 20 Mg Tab) 20 mg PO DAILY [facility] Furosemide (Furosemide 40 Mg Tab) 40 mg PO DAILY@1500 [facility] Furosemide (Furosemide 20 Mg Tab) 20 mg PO DAILY@1500 [facility] Gabapentin (Gabapentin 300 Mg Cap) 300 mg PO DAILY [facility] Insulin Aspart (Insulin Aspart 100 Units/Ml 3 Ml Pen) 45 unit SUBCUT TIDMEALS [facility] Insulin Aspart (Insulin Aspart 100 Units/Ml 3 Ml Pen) 1 unit SUBCUT ASDIRECTED PRN PRN Reason: HIGH BLOOD SUGAR Insulin Glargine (Insulin Glargine,Human Rec. Analog 100 Units/Ml 3 Ml Pen) 75 units SUBCUT BID [facility] Isosorbide Mononitrate (Isosorbide Mononitrate 60 Mg Tab.Er) 120 mg PO DAILY [facility] Lorazepam (Lorazepam 0.5 Mg Tab) 0.5 mg PO TID PRN PRN Reason: ANXIETY Losartan Potassium (Losartan 50 Mg Tab) 100 mg PO DAILY [facility] Meclizine HCl (Meclizine 25 Mg Tab.Chew) 25 mg PO Q4H PRN PRN Reason: DIZZINESS Melatonin (Melatonin 10 Mg Cap) 10 mg PO BEDTIME [facility] Metoclopramide HCl (Metoclopramide 10 Mg Tab) 10 mg PO TIDAC [facility] Metolazone (Metolazone 5 Mg Tab) 2.5 mg PO MoTh [facility] Metoprolol Succinate (Metoprolol Succinate 25 Mg Tab.Er) 75 mg PO DAILY [facility] Mometasone Furoate (Mometasone Furoate Powder 220 Mcg/Puff 14 Dose Inhaler) 1 puff INH BID [facility] Nitroglycerin (Nitroglycerin 0.4 Mg Tab.Sl) 0.4 mg SL ASDIRECTED PRN PRN Reason: CHEST PAIN Incruse Ellipta 1 each INH DAILY [facility] Rizatriptan 10mg (Tablet) 1 each PO ASDIRECTED [facility] Omeprazole (Omeprazole 20 Mg Cap.Cr) 20 mg PO BID [facility] Tamsulosin HCl (Tamsulosin 0.4 Mg Cap.Er) 0.4 mg PO DAILY [facility] Tramadol HCl (Tramadol 50 Mg Tab) 50 mg PO Q8H PRN PRN Reason: PAIN Warfarin Sodium (Warfarin 2 Mg Tab) 2 mg PO SuTh@1800 [facility] Warfarin Sodium (Warfarin 1 Mg Tab) 1 mg PO MoTuWeFrSa@1800 [facility] Assessment/Plan Comment:: 1- s/p cholecystectomy for cholangitis: resume pain control 2- T2DM: lantus 75 IU BID Novolog with meals 45IU TID 3- chronic HF: resume lasix and losartan 4- CKD: avoid nephrotoxic agents monitor BMP as needed 5- h/o PE/Stroke: resume INR goal 2-3 6- severe GERD and esophagitis PPI and Reglan 7- morbid obesity/physical deconditioning PT/OT - Mortality Measure Prognosis:: Good
[2020-12-19] MEDS: Metoclopramide 10 MG Tab PO SCH (17:20)
[2020-12-19] MEDS: Insulin Aspart 100 Units/ML 3 ML Pen SUBCUT SCH (17:24)
[2020-12-19] MEDS: Omeprazole 20 MG Cap.CR PO SCH (19:29)
[2020-12-19] MEDS: Enoxaparin 40 MG/0.4 ML Syringe SUBCUT SCH (19:29)
[2020-12-19] MEDS: Melatonin 10 MG Cap PO SCH (19:29)
[2020-12-19] MEDS: Insulin Glargine,Human Rec. Analog 100 Units/ML 3 ML Pen SUBCUT SCH (19:35)
[2020-12-20] MEDS: Mometasone Furoate Powder 220 MCG/Puff 14 Dose Inhaler INH SCH ×3 (07:32→20:02)
[2020-12-20] MEDS: Famotidine 20 MG Tab PO SCH (07:35)
[2020-12-20] MEDS: Metoclopramide 10 MG Tab PO SCH ×3 (07:36→17:08)
[2020-12-20] MEDS: Omeprazole 20 MG Cap.CR PO SCH ×2 (07:36→20:05)
[2020-12-20] MEDS: Furosemide 20 MG Tab PO SCH ×2 (07:36→15:56)
[2020-12-20] MEDS: Gabapentin 300 MG Cap PO SCH (07:36)
[2020-12-20] MEDS: Tamsulosin 0.4 MG Cap.ER PO SCH (07:36)
[2020-12-20] MEDS: FLUoxetine 20 MG Cap PO SCH (07:36)
[2020-12-20] MEDS: Enoxaparin 40 MG/0.4 ML Syringe SUBCUT SCH (07:36)
[2020-12-20] MEDS: Aspirin 81 MG Tab.EC PO SCH (07:36)
[2020-12-20] MEDS: Metoprolol Succinate 25 MG Tab.ER PO SCH (07:37)
[2020-12-20] MEDS: Losartan 50 MG Tab PO SCH (07:37)
[2020-12-20] MEDS: Isosorbide Mononitrate 60 MG Tab.ER PO SCH (07:37)
[2020-12-20] MEDS: Insulin Aspart 100 Units/ML 3 ML Pen SUBCUT SCH ×3 (07:38→17:08)
[2020-12-20] MEDS: Insulin Glargine,Human Rec. Analog 100 Units/ML 3 ML Pen SUBCUT SCH ×2 (07:38→20:09)
[2020-12-20] MEDS ORDERED: UMECLIDINIUM VILANTEROL INH SCH (08:00)
[2020-12-20] MEDS ORDERED: atorvaSTATin 80 MG Tab PO SCH ×2 (08:00→20:00)
[2020-12-20] MEDS ORDERED: [UNRECOGNIZED DRUG - OTHER] INH SCH (08:00)
[2020-12-20] MEDS: INCRUSE ELLIPTA INH SCH (08:53)
[2020-12-20] MEDS: Furosemide 40 MG Tab PO SCH (15:56)
[2020-12-20] MEDS: traMADol 50 MG Tab PO PRN (18:47)
[2020-12-20] MEDS: Melatonin 10 MG Cap PO SCH (20:04)
[2020-12-21] MEDS: traMADol 50 MG Tab PO PRN ×2 (07:41→14:48)
[2020-12-21] MEDS: Metoclopramide 10 MG Tab PO SCH ×2 (07:41→11:34)
[2020-12-21] MEDS: Gabapentin 300 MG Cap PO SCH (07:41)
[2020-12-21] MEDS: FLUoxetine 20 MG Cap PO SCH (07:42)
[2020-12-21] MEDS: Mometasone Furoate Powder 220 MCG/Puff 14 Dose Inhaler INH SCH (07:42)
[2020-12-21] MEDS: Furosemide 20 MG Tab PO SCH ×2 (07:42→14:36)
[2020-12-21] MEDS: Tamsulosin 0.4 MG Cap.ER PO SCH (07:42)
[2020-12-21] MEDS: Omeprazole 20 MG Cap.CR PO SCH (07:42)
[2020-12-21] MEDS: Famotidine 20 MG Tab PO SCH (07:42)
[2020-12-21] MEDS: Aspirin 81 MG Tab.EC PO SCH (07:42)
[2020-12-21] MEDS: Losartan 50 MG Tab PO SCH (07:44)
[2020-12-21] MEDS: Metoprolol Succinate 25 MG Tab.ER PO SCH (07:44)
[2020-12-21] MEDS: Isosorbide Mononitrate 60 MG Tab.ER PO SCH (07:44)
[2020-12-21 07:45] VITALS: BP 138/76; PULSE 73
[2020-12-21] MEDS: INCRUSE ELLIPTA INH SCH (07:45)
[2020-12-21] MEDS: Insulin Glargine,Human Rec. Analog 100 Units/ML 3 ML Pen SUBCUT SCH (07:51)
[2020-12-21] MEDS: Insulin Aspart 100 Units/ML 3 ML Pen SUBCUT SCH ×2 (07:53→11:31)
--- NOTE | 2020-12-21 13:51 | PCM.DCSUM1 ---
Discharge Summary - Hospital Course Brief History: patient was trasnferred to Swing bed from OSH - for rehabilitation. h/o lap cholecystectomy after cholecystitis/cholangitis. post- op course was complicated with intra-abdominal infection and NPO status for 10 days that required IVF and IVC abx - patient slowly recovered but due to multiple medical problems including morbid obesity, copd, HF and O2 depedenet - he required rehabilitation. Diagnosis: Stroke: No - Discharge Data Discharge Date: 12/21/20 Discharge Disposition: Home, Self-Care 01 Condition: Good - Referral to Home Health Primary Care Physician: PCP None - Discharge Diagnosis/Problem(s) (1) Chronic kidney disease, stage 3 SNOMED Code(s): 280850536 ICD Code: N18.30 - CHRONIC KIDNEY DISEASE, STAGE 3 UNSPECIFIED Status: Chronic Priority: Medium Qualifiers: Chronic kidney disease stage 3 subtype: stage 3b (GFR 30-44) Qualified Code(s): N18.32 - Chronic kidney disease, stage 3b (2) Diabetes mellitus SNOMED Code(s): 21078562 ICD Code: E11.9 - TYPE 2 DIABETES MELLITUS WITHOUT COMPLICATIONS Status: Chronic Priority: Medium Qualifiers: Diabetes mellitus type: type 2 Diabetes mellitus complication status: without complication Qualified Code(s): E11.9 - Type 2 diabetes mellitus without complications (3) GERD (gastroesophageal reflux disease) SNOMED Code(s): 750047552 ICD Code: K21.9 - GASTRO-ESOPHAGEAL REFLUX DISEASE WITHOUT ESOPHAGITIS Status: Chronic Priority: Medium Qualifiers: Esophagitis presence: with esophagitis Esophagitis bleeding: without hemorrhage Qualified Code(s): K21.00 - Gastro-esophageal reflux disease with esophagitis, without bleeding (4) Obesity (BMI 30.0-34.9) SNOMED Code(s): 032322135232611 ICD Code: E66.9 - OBESITY, UNSPECIFIED Status: Chronic Priority: Medium - Patient Summary/Data Consults: Consultations 12/19/20 14:31 Consult to Case Management/Data Steward [CONS] Routine Comment: Physician Instructions: Service(s) to be Consulted: Case Manage&Social Servic 12/19/20 16:00 OT Evaluation and Treatment [CONS] Routine Please Evaluate and Treat. OT Reason for Consult: Strengthening This query below is only for informational purposes and is not editable. PT Evaluation and Treatment [CONS] Routine Please Evaluate and Treat. PT Reason for Consult: Strengthening This query below is only for informational purposes and is not editable. Hospital Course: while in swing bed - home meds were resumed - including Coumadin. INR became therapeutic and Lovenox was stopped. toleration PO diet vitals remained stable pain controlled PT/OT were consulted - they evaluated and worked with the patient He responded well to therapy and was determined safe to be d/cd home with . - Patient Instructions Diet: Heart Healthy Diet Activity: As Tolerated Driving: Do Not Drive Showering/Bathing: May Shower Wound/Incision Care: Keep Operative Site/Wound Site Clean and Dry Notify Provider of: Fever, Increased Pain, Swelling and Redness, Drainage, Nausea and/or Vomiting - Discharge Plan *PRESCRIPTION DRUG MONITORING PROGRAM REVIEWED*: Not Applicable *COPY OF PRESCRIPTION DRUG MONITORING REPORT IN PATIENT KAVON: Not Applicable Prescriptions/Med Rec: Insulin Aspart 100 unit SQ DAILY #1 ml Metoprolol Succinate [Toprol XL] 75 mg PO DAILY #30 tab.er traMADol [Ultram] 50 mg PO Q8H PRN #20 tablet PRN Reason: PAIN Home Medications: Home Meds Omeprazole 20 mg PO BID 05/26/15 [History] atorvaSTATin [Lipitor] 80 mg PO BEDTIME 05/26/15 [History] Metoprolol Succinate [Toprol XL] 75 mg PO DAILY 05/25/16 [History] Metoclopramide HCl [Reglan] 10 mg PO QIDACANDBED 03/29/17 [History] Tamsulosin HCl 0.4 mg PO DAILY 03/29/17 [History] Insulin Pump Syringe, 3 mL [Minimed [place]] 1 each MC ASDIRECTED 04/04/17 [History] Isosorbide Mononitrate [Isosorbide Mononitrate ER] 120 mg PO DAILY 09/09/17 [History] Aspirin [Halfprin] 81 mg PO DAILY 12/03/19 [History] Gabapentin [Neurontin] 300 mg PO DAILY 12/03/19 [History] Losartan [Cozaar] 100 mg PO DAILY 12/03/19 [History] Acetaminophen 650 mg PO ASDIRECTED PRN 12/08/19 [History] Cyclobenzaprine [Flexeril] 10 mg PO TID PRN 12/08/19 [History] FLUoxetine [PROzac] 20 mg PO DAILY 04/10/20 [History] Famotidine 40 mg PO BID 04/10/20 [History] Mometasone/Formoterol [Dulera 200 MCG/5 MCG] 2 puff INH BID 04/10/20 [History] Rizatriptan Benzoate [Rizatriptan] 10 mg PO DAILY PRN 04/10/20 [History] LORazepam [Ativan] 0.5 mg PO TID PRN 09/02/20 [History] Fluticasone/Umeclidin/Vilanter [Trelegy Ellipta 100-62.5-25] 1 each IH DAILY 09/03/20 [Rx] Umeclidinium Zavalla [Incruse Ellipta*] 1 puff INH DAILY 09/03/20 [History] Warfarin [Coumadin] 1 mg PO ASDIRECTED 09/03/20 [History] Famotidine [Pepcid] 40 mg PO DAILY 12/19/20 [History] Furosemide 20 mg pe PO DAILY 12/19/20 [History] Insulin Aspart [NovoLOG] 45 units SQ TIDAC 12/19/20 [History] Insulin Glarg,Human.Rec.Analog [Lantus Solostar] 75 unit SUBCUT BID 12/19/20 [History] Meclizine HCl 25 mg PO Q4HR PRN 12/19/20 [History] Melatonin 10 mg PO BEDTIME PRN 12/19/20 [History] Metoclopramide HCl [Reglan] 10 mg PO DAILY 12/19/20 [History] Nitroglycerin [Nitrostat] 0.4 mg PO ASDIRECTED 12/19/20 [History] metOLazone [Metolazone] 2.5 mg PO ASDIRECTED 12/19/20 [History] traMADol [Ultram] 50 mg PO ASDIRECTED PRN 12/19/20 [History] Acetaminophen [Tylenol] 650 mg PO Q4H PRN tablet 12/21/20 [Rx] Aspirin [Halfprin] 81 mg PO DAILY tab.ec 12/21/20 [Rx] Cyclobenzaprine [Flexeril] 10 mg PO TID PRN tablet 12/21/20 [Rx] Famotidine [Pepcid] 40 mg PO DAILY tablet 12/21/20 [Rx] Furosemide [Lasix] 20 mg PO DAILY tablet 12/21/20 [Rx] Furosemide [Lasix] 20 mg PO DAILY@1500 tablet 12/21/20 [Rx] Furosemide [Lasix] 40 mg PO DAILY@1500 tablet 12/21/20 [Rx] Gabapentin [Neurontin] 300 mg PO DAILY cap 12/21/20 [Rx] Insulin Aspart 100 unit SQ DAILY #1 ml 12/21/20 [Rx] Insulin Glarg,Human.Rec.Analog [Lantus Solostar] 75 units SUBCUT BID pen 12/21/20 [Rx] Isosorbide Mononitrate [Imdur] 120 mg PO DAILY tab.er 12/21/20 [Rx] LORazepam [Ativan] 0.5 mg PO TID PRN tablet 12/21/20 [Rx] Losartan [Cozaar] 100 mg PO DAILY tablet 12/21/20 [Rx] Meclizine [Antivert] 25 mg PO Q4H PRN tab.chew 12/21/20 [Rx] Melatonin 10 mg PO BEDTIME cap 12/21/20 [Rx] Metoprolol Succinate [Toprol XL] 75 mg PO DAILY #30 tab.er 12/21/20 [Rx] Nitroglycerin [Nitrostat] 0.4 mg SL ASDIRECTED PRN tab.sl 12/21/20 [Rx] Non-Formulary Medication [NF Drug] 1 each INH DAILY each 12/21/20 [Rx] Non-Formulary Medication [NF Drug] 1 each PO ASDIRECTED each 12/21/20 [Rx] Omeprazole 20 mg PO BID cap.cr 12/21/20 [Rx] Tamsulosin [Flomax] 0.4 mg PO DAILY cap.er 12/21/20 [Rx] Warfarin [Coumadin] 1 mg PO MoTuWeFrSa@1800 tablet 12/21/20 [Rx] Warfarin [Coumadin] 2 mg PO SuTh@1800 tablet 12/21/20 [Rx] atorvaSTATin [Lipitor] 80 mg PO BEDTIME tablet 12/21/20 [Rx] metOLazone [Zaroxolyn] 2.5 mg PO MoTh tablet 12/21/20 [Rx] traMADol [Ultram] 50 mg PO Q8H PRN #20 tablet 12/21/20 [Rx] Oxygen Therapy Mode: Nasal Cannula Patient Handouts: Fall Prevention in the Home, Adult, [id number] - Discharge Summary/Plan Comment DC Time >30 min.: Yes Discharge Summary/Plan Comment: resume insulin pump increase metoprolol to 75mg daily - General Info Admission Dx/Problem (Free Text: Admission Diagnosis/Problem Admission Diagnosis/Problem Weakness Functional Status: Reports: Pain Controlled, Tolerating Diet, Ambulating, Urinating, New Symptoms - Review of Systems General: Reports: No Symptoms HEENT: Reports: No Symptoms Pulmonary: Reports: No Symptoms Cardiovascular: Reports: No Symptoms Gastrointestinal: Reports: No Symptoms Musculoskeletal: Reports: No Symptoms Skin: Reports: No Symptoms Neurological: Reports: No Symptoms - Patient Data Vitals - Most Recent: Last Vital Signs Temp 36.5 C 12/21/20 08:00 Pulse 73 12/21/20 08:00 Resp 18 12/21/20 08:00 BP 138/76 12/21/20 08:00 Pulse Ox 97 12/21/20 08:00 Weight - Most Recent: 162.84 kg Lab Results - Last 24 hrs: Laboratory Results - last 24 hr 12/20/20 12/20/20 12/21/20 Range/Units 17:07 20:14 07:52 POC Glucose 104 119 H 115 H (74-110) mg/dL 12/21/20 Range/Units 11:30 POC Glucose 103 (74-110) mg/dL Med Orders - Current: Current Medications Acetaminophen (Acetaminophen 325 Mg Tab) 650 mg PO Q4H PRN PRN Reason: MILD PAIN Last Admin: 12/20/20 08:45 Dose: 650 mg Documented by: Albuterol (Albuterol 8 Gm Inhaler) 8 gm INH Q4H PRN PRN Reason: Shortness of Breath Aspirin (Aspirin 81 Mg Tab.Ec) 81 mg PO DAILY [facility] Last Admin: 12/21/20 07:42 Dose: 81 mg Documented by: Atorvastatin Calcium (Atorvastatin 80 Mg Tab) 80 mg PO BEDTIME [facility] Last Admin: 12/20/20 20:04 Dose: 80 mg Documented by: Cyclobenzaprine HCl (Cyclobenzaprine 10 Mg Tab) 10 mg PO TID PRN PRN Reason: MUSCLE SPASM Famotidine (Famotidine 20 Mg Tab) 40 mg PO DAILY [facility] Last Admin: 12/21/20 07:42 Dose: 40 mg Documented by: Fluoxetine HCl (Fluoxetine 20 Mg Cap) 20 mg PO DAILY [facility] Last Admin: 12/21/20 07:42 Dose: 20 mg Documented by: Furosemide (Furosemide 20 Mg Tab) 20 mg PO DAILY [facility] Last Admin: 12/21/20 07:42 Dose: 20 mg Documented by: Furosemide (Furosemide 40 Mg Tab) 40 mg PO DAILY@1500 [facility] Last Admin: 12/20/20 15:56 Dose: 40 mg Documented by: Furosemide (Furosemide 20 Mg Tab) 20 mg PO DAILY@1500 [facility] Last Admin: 12/20/20 15:56 Dose: 20 mg Documented by: Gabapentin (Gabapentin 300 Mg Cap) 300 mg PO DAILY [facility] Last Admin: 12/21/20 07:41 Dose: 300 mg Documented by: Insulin Aspart (Insulin Aspart 100 Units/Ml 3 Ml Pen) 45 unit SUBCUT TIDMEALS [facility] Last Admin: 12/21/20 11:31 Dose: 45 unit Documented by: Insulin Aspart (Insulin Aspart 100 Units/Ml 3 Ml Pen) 1 unit SUBCUT ASDIRECTED PRN PRN Reason: HIGH BLOOD SUGAR Last Admin: 12/19/20 17:26 Dose: 2 units Documented by: Insulin Glargine (Insulin Glargine,Human Rec. Analog 100 Units/Ml 3 Ml Pen) 75 units SUBCUT BID [facility] Last Admin: 12/21/20 07:51 Dose: 75 units Documented by: Isosorbide Mononitrate (Isosorbide Mononitrate 60 Mg Tab.Er) 120 mg PO DAILY [facility] Last Admin: 12/21/20 07:44 Dose: 120 mg Documented by: Lorazepam (Lorazepam 0.5 Mg Tab) 0.5 mg PO TID PRN PRN Reason: ANXIETY Losartan Potassium (Losartan 50 Mg Tab) 100 mg PO DAILY [facility] Last Admin: 12/21/20 07:44 Dose: 100 mg Documented by: Meclizine HCl (Meclizine 25 Mg Tab.Chew) 25 mg PO Q4H PRN PRN Reason: DIZZINESS Melatonin (Melatonin 10 Mg Cap) 10 mg PO BEDTIME [facility] Last Admin: 12/20/20 20:04 Dose: 10 mg Documented by: Metoclopramide HCl (Metoclopramide 10 Mg Tab) 10 mg PO TIDAC [facility] Last Admin: 12/21/20 11:34 Dose: 10 mg Documented by: Metolazone (Metolazone 5 Mg Tab) 2.5 mg PO MoTh [facility] Metoprolol Succinate (Metoprolol Succinate 25 Mg Tab.Er) 75 mg PO DAILY [facility] Last Admin: 12/21/20 07:44 Dose: 75 mg Documented by: Mometasone Furoate (Mometasone Furoate Powder 220 Mcg/Puff 14 Dose Inhaler) 1 puff INH BID [facility] Last Admin: 12/21/20 07:42 Dose: 1 puff Documented by: Nitroglycerin (Nitroglycerin 0.4 Mg Tab.Sl) 0.4 mg SL ASDIRECTED PRN PRN Reason: CHEST PAIN Incruse Ellipta 1 each INH DAILY [facility] Last Admin: 12/21/20 07:45 Dose: 1 each Documented by: Rizatriptan 10mg (Tablet) 1 each PO ASDIRECTED [facility] Omeprazole (Omeprazole 20 Mg Cap.Cr) 20 mg PO BID [facility] Last Admin: 12/21/20 07:42 Dose: 20 mg Documented by: Tamsulosin HCl (Tamsulosin 0.4 Mg Cap.Er) 0.4 mg PO DAILY [facility] Last Admin: 12/21/20 07:42 Dose: 0.4 mg Documented by: Tramadol HCl (Tramadol 50 Mg Tab) 50 mg PO Q8H PRN PRN Reason: PAIN Last Admin: 12/21/20 07:41 Dose: 50 mg Documented by: Warfarin Sodium (Warfarin 2 Mg Tab) 2 mg PO SuTh@1800 [facility] Warfarin Sodium (Warfarin 1 Mg Tab) 1 mg PO MoTuWeFrSa@1800 [facility] Last Admin: 12/20/20 17:08 Dose: 1 mg Documented by: Discontinued Medications Atorvastatin Calcium (Atorvastatin 80 Mg Tab) 80 mg PO DAILY [facility] Enoxaparin Sodium (Enoxaparin 40 Mg/0.4 Ml Syringe) 40 mg SUBCUT BID [facility] Last Admin: 12/20/20 07:36 Dose: 40 mg Documented by: Metoclopramide HCl (Metoclopramide 10 Mg Tab) 10 mg PO ASDIRECTED [facility] Tuberculin PPD (Tuberculin, Ppd 5 Units/0.1 Ml 1 Ml Mdv) 5 unit IDERM ONETIME ONE Stop: 12/19/20 14:33 Last Admin: 12/19/20 17:46 Dose: 5 unit Documented by: - Exam Quality Assessment: Reports: Supplemental Oxygen General: Reports: Alert, Oriented, Cooperative HEENT: Reports: Pupils Equal Lungs: Reports: Clear to Auscultation, Normal Respiratory Effort Cardiovascular: Reports: Regular Rate, Regular Rhythm GI/Abdominal Exam: Normal Bowel Sounds, Soft Neurological: Reports: No New Focal Deficit Psy/Mental Status: Reports: Alert, Normal Affect
[2020-12-21] MEDS: Furosemide 40 MG Tab PO SCH (14:37)
[2020-12-22] MEDS ORDERED: Metolazone 5 MG Tab PO SCH (08:00)
[2020-12-22] MEDS ORDERED: Warfarin 2 MG Tab PO SCH (18:00)
== END 2020-12-21 14:50 | disposition home or self-care (01) | DRG 948 ==
LOC: LB.MS 15:33
PROVIDERS: ADMIT Surgery; ATTEND Surgery
DX: R53.1 Weakness (principal); I13.0 Hypertensive heart and chronic kidney disease with heart failure and stage 1 through stage 4 chronic kidney disease, or unspecified chronic kidney disease; N18.32 Chronic kidney disease, stage 3b; E11.22 Type 2 diabetes mellitus with diabetic chronic kidney disease; E66.01 Morbid (severe) obesity due to excess calories; H54.7 Unspecified visual loss; K59.09 Other constipation; M54.9 Dorsalgia, unspecified; G89.29 Other chronic pain; E78.00 Pure hypercholesterolemia, unspecified; I50.9 Heart failure, unspecified; M54.2 Cervicalgia; F32.9 Major depressive disorder, single episode, unspecified; Z96.659 Presence of unspecified artificial knee joint; E53.8 Deficiency of other specified B group vitamins; Z98.890 Other specified postprocedural states; K21.00 Gastro-esophageal reflux disease with esophagitis, without bleeding; Z88.8 Allergy status to other drugs, medicaments and biological substances; Z79.4 Long term (current) use of insulin; Z79.01 Long term (current) use of anticoagulants; Z79.899 Other long term (current) drug therapy; Z79.82 Long term (current) use of aspirin; Z87.01 Personal history of pneumonia (recurrent); Z95.0 Presence of cardiac pacemaker
CPT/HCPCS: 36415; 80048; 82947; 85027; 85610; 86580; 97161-GP; 97165-GO; A9270-GY; J1650; J1815-GY

== ENCOUNTER 2021-01-02 14:28 | Emergency (ER) | payer MEDICARE, OTHER ==
[2021-01-02 14:47] VITALS: PULSE 75
[2021-01-02 14:49] VITALS: BP 161/78
--- NOTE | 2021-01-02 19:05 | ER ---
REASON FOR EMERGENCY ROOM VISIT: Abdominal pain. HISTORY: This 75-year-old obese diabetic man underwent a laparoscopic cholecystectomy for chronic cholecystitis and cholelithiasis 2 weeks ago. Postoperatively, his recovery was uneventful. Three days ago, he developed some gradually increasing left upper quadrant pain which has been fairly constant and initially mild in nature. He did have some minimal nausea, but his pain has persisted for approximately 3 days. He has not had any fever. He had a normal bowel movement this morning. He denies any diarrhea. He has not had any vomiting. He did take tramadol around noon today and his pain subsequently resolved for a few hours, but returned over the last hour or two. This prompted him to come to the emergency room to be evaluated. He does have a history of Lu's esophagus and longstanding acid reflux. There is no known history of peptic ulcer disease or pancreatitis. He has no history of kidney stones, although he does have some chronic renal disease. He has had used narcotics for quite some time for various pains, but his tramadol use stems from the tramadol that was left over from his laparoscopic cholecystectomy. His diabetes has been present for quite some time and he relies upon insulin pump. PAST MEDICAL HISTORY: 1. Lu's esophagus as mentioned above. 2. Atrial fib with angina and automatic implantable cardioverter defibrillator. He has a pacemaker. He has undergone ablation in 2015. 3. He has a history of sleep apnea. He does use a CPAP at night. 4. He does have chronic back pain and neck pain and history of migraines. 5. His diabetes is said to be type 2, but he is on an insulin pump. 6. He has morbid obesity with a BMI greater than 30. 7. He has had an inguinal hernia repair in the past and has had lithotripsy for kidney stones in the past as well. 8. He has also had knee replacement and vertebral fusion. MEDICATIONS: He has an extensive medication list, please see electronic medical record. ALLERGIES: CAFFEINE AND NIFEDIPINE AND COFFEE. REVIEW OF SYSTEMS: Pertinent positives and negatives as listed in the HPI. PHYSICAL EXAMINATION: GENERAL: Reveals a pleasant man, in no acute distress. His is present. He is afebrile. HEENT: Normocephalic. No scleral icterus is noted. Oropharynx is normal. NECK: Supple. No adenopathy. CHEST: Clear to auscultation. CARDIAC: Regular rate without murmur. ABDOMEN: Nondistended, but very obese. On deep palpation, he has minimal tenderness in the left upper quadrant. There is no guarding, rebound or percussion tenderness. Bowel sounds are present. EXTREMITIES: He has edema bilaterally, but it is symmetrical. His feet are pink and warm. LABORATORY DATA: CBC shows he has no leukocytosis. His hemoglobin is 11.8. His electrolytes are normal. He does have a mildly elevated alkaline phosphatase of 157, but his transaminases are not elevated. His bilirubin is normal. Amylase is normal at 26. On upright chest x-ray, PA and lateral was obtained showing no evidence of free air beneath the diaphragm. He has no active pulmonary disease. IMPRESSION: Left upper quadrant pain with no fever or leukocytosis, and unremarkable physical examination. PLAN: At this point in time, I think a sensible thing would be to observe him and see how things go. He can go ahead and take occasional tramadol over the next day or so to see if things settle down. I urged him to be very judicious about this. We discussed the option of proceeding with things like a CT scan, but I do not find anything on lab or physical examination that makes me feel this is really necessary at this juncture. Should his symptoms persist over the next couple of days or should they worsen at any time, we can reconsider and re-evaluate. He and his understand and feel this is sensible. All questions were answered and they agree with this plan. KYLEIGH /[id number] LENO
--- NOTE | 2021-01-03 12:42 | CR ---
DATE OF SERVICE: 01/02/2021 CLINICAL DATA: Upper left quadrant pain PA and lateral chest: No priors. The heart size is normal. There is a cardiac pacer overlying the left chest with the distal pacer wires in the region of the right atrium and right ventricle. There is calcification of the aortic arch. There is mild pleural thickening in both hemithoraces. The lungs are clear. No pneumothorax. No pleural effusions. There is mild degenerative disc disease throughout the thoracic spine. No other significant findings. Thank you for allowing us to participate in the care of your patient. LENO
== END 2021-01-02 15:35 | disposition home or self-care (01) ==
LOC: LB.ED 14:28
DX: R10.12 Left upper quadrant pain (principal); R74.8 Abnormal levels of other serum enzymes; I48.91 Unspecified atrial fibrillation; G43.909 Migraine, unspecified, not intractable, without status migrainosus; G89.29 Other chronic pain; M54.9 Dorsalgia, unspecified; M54.2 Cervicalgia; E11.9 Type 2 diabetes mellitus without complications; E66.01 Morbid (severe) obesity due to excess calories; Z68.43 Body mass index [BMI] 50.0-59.9, adult; Z88.8 Allergy status to other drugs, medicaments and biological substances; Z91.018 Allergy to other foods
CPT/HCPCS: 36415; 71046; 80053; 82150; 85025; 99284-25

== ENCOUNTER 2021-01-07 03:20 | Emergency (ER) | payer MEDICARE ==
--- NOTE | 2021-01-07 04:00 | EDM.PDOC ---
ED HPI GENERAL MEDICAL PROBLEM - General Chief Complaint: Abdominal Pain Stated Complaint: abd pain Time Seen by Provider: 01/07/21 03:35 Source of Information: Reports: Patient History Limitations: Reports: No Limitations - History of Present Illness INITIAL COMMENTS - FREE TEXT/NARRATIVE: pt states onset of right upper quadrant abdominal pain starting approximately 8- 9 hrs prior to arrival with coinciding nausea without vomiting. pt states gallbladder removal about three weeks ago and evening meal of pork steak with hasbrowns and gravy. pt denies fever, chills, shortness of breath, cough, diarrhea. describes pain as sharp and comes in waves. attempted to take tramadol at home before bed which he believed helped but pain awoke him from sleep. Right Upper Abdomen Pain Score (Numeric/FACES): 4 - Related Data Allergies Allergy/AdvReac Type Severity Reaction Status Date / Time caffeine Allergy Dizziness Verified 01/07/21 06:18 coffee (Coffea arabica) Allergy Headache Verified 01/07/21 06:18 nifedipine [From Procardia] AdvReac Mild Constipatio Verified 01/07/21 06:18 n Home Meds: Home Meds RX: Omeprazole 20 mg PO BID 05/26/15 [History] RX: Metoclopramide HCl [Reglan] 10 mg PO QIDACANDBED 03/29/17 [History] RX: Insulin Pump Syringe, 3 mL [Minimed [place]] 1 each MC ASDIRECTED 04/04/17 [History] RX: Isosorbide Mononitrate [Isosorbide Mononitrate ER] 120 mg PO DAILY 09/09/17 [History] RX: Aspirin [Halfprin] 81 mg PO DAILY 12/03/19 [History] RX: Gabapentin [Neurontin] 300 mg PO DAILY 12/03/19 [History] RX: Acetaminophen 650 mg PO ASDIRECTED PRN 12/08/19 [History] RX: Cyclobenzaprine [Flexeril] 10 mg PO TID PRN 12/08/19 [History] RX: FLUoxetine [PROzac] 20 mg PO DAILY 04/10/20 [History] RX: Mometasone/Formoterol [Dulera 200 MCG/5 MCG] 2 puff INH BID 04/10/20 [History] RX: Rizatriptan Benzoate [Rizatriptan] 10 mg PO DAILY PRN 04/10/20 [History] Fluticasone/Umeclidin/Vilanter [Trelegy Ellipta 100-62.5-25] 1 each IH DAILY 09/03/20 [Rx] RX: Umeclidinium [place] [Incruse Ellipta*] 1 puff INH DAILY 09/03/20 [History] RX: Famotidine [Pepcid] 40 mg PO DAILY 12/19/20 [History] RX: Insulin Aspart [NovoLOG] 45 units SQ TIDAC 12/19/20 [History] RX: Insulin Glarg,Human.Rec.Analog [Lantus Solostar] 75 unit SUBCUT BID 12/19/20 [History] RX: Meclizine HCl 25 mg PO Q4HR PRN 12/19/20 [History] RX: Nitroglycerin [Nitrostat] 0.4 mg PO ASDIRECTED 12/19/20 [History] RX: Furosemide [Lasix] 40 mg PO DAILY@1500 tablet 12/21/20 [Rx] RX: Insulin Aspart 100 unit SQ DAILY #1 ml 12/21/20 [Rx] RX: LORazepam [Ativan] 0.5 mg PO TID PRN tablet 12/21/20 [Rx] RX: Losartan [Cozaar] 100 mg PO DAILY tablet 12/21/20 [Rx] RX: Meclizine [Antivert] 25 mg PO Q4H PRN tab.chew 12/21/20 [Rx] RX: Melatonin 10 mg PO BEDTIME cap 12/21/20 [Rx] RX: Metoprolol Succinate [Toprol XL] 75 mg PO DAILY #30 tab.er 12/21/20 [Rx] RX: Non-Formulary Medication [NF Drug] 1 each INH DAILY each 12/21/20 [Rx] RX: Non-Formulary Medication [NF Drug] 1 each PO ASDIRECTED each 12/21/20 [Rx] RX: Tamsulosin [Flomax] 0.4 mg PO DAILY cap.er 12/21/20 [Rx] RX: Warfarin [Coumadin] 1 mg PO MoTuWeFrSa@1800 tablet 12/21/20 [Rx] RX: Warfarin [Coumadin] 2 mg PO SuTh@1800 tablet 12/21/20 [Rx] RX: atorvaSTATin [Lipitor] 80 mg PO BEDTIME tablet 12/21/20 [Rx] RX: metOLazone [Zaroxolyn] 2.5 mg PO MoTh tablet 12/21/20 [Rx] RX: traMADol [Ultram] 50 mg PO Q6H PRN 01/02/21 [History] Past Medical History - Past Health History Medical/Surgical History: Denies Medical/Surgical History HEENT History: Reports: Cataract, Impaired Vision, Other (See Below) Other HEENT History: Lu's esophagus Cardiovascular History: Reports: Afib, Angina, Automatic Implantable Cardioverter Defibrillators, High Cholesterol, Hypertension, Pacemaker, SOB on Exertion Other Cardiovascular History: Ablation in July,, angiogram 07/25/2017 Respiratory History: Reports: PE, Pneumonia, Recurrent, Sleep Apnea, SOB Other Respiratory History: wears a cpap at night Gastrointestinal History: Reports: Bowel Obstruction, Chronic Constipation, GERD, Other (See Below) Other Gastrointestinal History: duodenal ulcer Genitourinary History: Reports: Renal Calculus, Other (See Below) Other Genitourinary History: prostate stent placed 10/01/2016 Musculoskeletal History: Reports: Back Pain, Chronic Other Musculoskeletal History: Neck pain causing migraines Neurological History: Reports: Migraines Other Neuro History: Patient had vertebrae in neck fused. Resolved some or most of headaches. Psychiatric History: Reports: Depression, Emotional Problems Endocrine/Metabolic History: Reports: Diabetes, Type II, Obesity/BMI 30+ Other Endocrine/Metabolic History: pt has insulin pump Hematologic History: Reports: B12 Deficiency, Blood Transfusion(s) Oncologic (Cancer) History: Reports: None Dermatologic History: Reports: Other (See Below) Other Dermatologic History: Had pre-cancer lesion removed to R arm. Has lesion to L wrist. - Infectious Disease History Infectious Disease History: Reports: Chicken Pox, Measles, Rubella - Past Surgical History Head Surgeries/Procedures: Reports: None HEENT Surgical History: Reports: Tonsillectomy Other HEENT Surgeries/Procedures: C3 and C4 fusion- 2014 Cardiovascular Surgical History: Reports: Cardiac Ablation, Pacer Other Cardiovascular Surgeries/Procedures: Ablation in 2014 Respiratory Surgical History: Reports: None GI Surgical History: Reports: Colonoscopy, Hernia, Inguinal, Other (See Below) Other GI Surgeries/Procedures: laproscopic sx for infestigation of constipation issues Male Surgical History: Reports: Kidney Stone Extraction, Lithotripsy ([facility]) Endocrine Surgical History: Reports: None Neurological Surgical History: Reports: C-Spine, Spinal Fusion Other Neurological Surgeries/Procedures: Woke this Am with CARDONA - currently rates at 9.5/10 Musculoskeletal Surgical History: Reports: Knee Replacement Other Musculoskeletal Surgeries/Procedures:: C3-4 vertebral fusion Social & Family History - Family History Family Medical History: No Pertinent Family History HEENT: Reports: Cataract Cardiac: Reports: [place] Respiratory: Reports: COPD GI: Reports: None : Reports: None Endocrine/Metabolic: Reports: Diabetes, type II Oncologic: Reports: Brain, Colon, Lung - Caffeine Use Caffeine Use: Reports: None Other Caffeine Use: diet coke - 3-4 cans /day - Living Situation & Occupation Living situation: Reports: Occupation: Unemployed ED ROS GENERAL - Review of Systems Review Of Systems: Comprehensive ROS is negative, except as noted in HPI. ED EXAM, GENERAL - Physical Exam Exam: See Below Exam Limited By: No Limitations General Appearance: Alert, WD/WN, No Apparent Distress Throat/Mouth: Normal Inspection, Normal Teeth, Normal Oropharynx, Normal Voice, No Airway Compromise Respiratory/Chest: No Respiratory Distress, Lungs Clear, Normal Breath Sounds, No Accessory Muscle Use, Chest Non-Tender Cardiovascular: Normal Peripheral Pulses Peripheral Pulses: 2+: Radial (L), Radial (R), Posterior Tibial (L), Posterior Tibial (R) GI/Abdominal: Normal Bowel Sounds, Soft, Non-Tender, Other (morbidly obese) Neurological: Alert, Oriented, Normal Cognition, Normal Gait Psychiatric: Normal Affect, Normal Mood Skin Exam: Warm, Dry, Intact, Normal Color, No Rash Course - Vital Signs Last Recorded V/S: Last Vital Signs Temp 98.5 F 01/07/21 03:29 Pulse 79 01/07/21 03:29 Resp 18 01/07/21 03:29 BP 143/66 H 01/07/21 03:29 Pulse Ox 96 01/07/21 03:29 - Orders/Labs/Meds Orders: Active Orders 24 hr Category Date Time Status Chest 2V [CR] Stat Exams 01/07/21 03:52 Taken Labs: Laboratory Tests 01/07/21 01/07/21 Range/Units 03:49 04:00 WBC 8.9 (4.0-11.0) K/uL RBC 4.43 L (4.50-6.50) M/uL Hgb 12.6 L (13.0-18.0) g/dL Hct 38.0 L (40.0-54.0) % MCV 86 (76-96) fL MCH 28.4 (27.0-32.0) pg MCHC 33.2 D (31.0-35.0) g/dL RDW 15.5 (11.0-16.0) % Plt Count 191 (150-400) K/uL MPV 11.7 H (6.0-10.0) fL Neut % (Auto) 53.8 (45.0-70.0) % Lymph % (Auto) 33.4 (20.0-40.0) % [place] % (Auto) 9.4 (3.0-10.0) % Eos % (Auto) 3.0 (1.0-5.0) % Baso % (Auto) 0.4 (0.0-0.5) % Neut # (Auto) 4.79 (2.00-7.50) K/uL Lymph # (Auto) 2.98 (1.50-4.00) K/uL [place] # (Auto) 0.84 H (0.20-0.80) K/uL Eos # (Auto) 0.27 (0.04-0.40) K/uL Baso # (Auto) 0.04 (0.02-0.10) K/uL Sodium 135 L (136-145) mmol/L Potassium 3.2 L D (3.5-5.1) mmol/L Chloride 100 (98-107) mmol/L Carbon Dioxide 28.7 (21.0-32.0) mmol/L Anion Gap 9.5 (5.0-15.0) mmol/L BUN 24 (8-26) mg/dL Creatinine 1.61 H (0.70-1.30) mg/dL Est Cr Clr Drug Dosing TNP Estimated GFR (MDRD) 42 L (>60) MLS/MIN BUN/Creatinine Ratio 14.9 (6-25) Glucose 270 H (74-100) mg/dL Calcium 8.6 (8.5-10.1) mg/dL Total Bilirubin 0.8 (0.0-1.0) mg/dL AST 24 (15-37) U/L ALT 37 (12-78) U/L Alkaline Phosphatase 166 H (46-116) U/L Troponin I < 0.017 (0.000-0.060) ng/mL Total Protein 7.5 (6.4-8.2) g/dL Albumin 3.2 L (3.4-5.0) g/dL Globulin 4.3 H (2.2-4.2) g/dL Albumin/Globulin Ratio 0.7 L (0.8-2.0) Lipase 148 D (73-393) U/L Meds: Medications Discontinued Medications Generic Name Dose Route Start Last Admin Trade Name Awilda PRN Reason Stop Dose Admin Morphine Sulfate 2 mg 01/07/21 03:53 01/07/21 04:50 Morphine 2 Mg/Ml Syringe IVPUSH 01/07/21 03:54 2 mg ONETIME ONE Administration Prochlorperazine Edisylate 5 mg 01/07/21 03:54 01/07/21 04:45 Prochlorperazine 10 Mg/2 Ml Sdv IVPUSH 01/07/21 03:55 5 mg ONETIME ONE Administration - Radiology Interpretation Free Text/Narrative:: wet read of cxr at 0515 shows no noted pneumothorax, widened mediastinum. no noted free air below diaphragm. there is a pacemaker. at this time pt states complete relief of discomfort and states eagerness to return home. this was obliged. Departure - Departure Time of Disposition: 05:30 Disposition: Home, Self-Care 01 Condition: Good Clinical Impression: Epigastric abdominal pain, Status post cholecystectomy - Discharge Information Instructions: Laparoscopic Cholecystectomy, Care After, Gallbladder Eating Plan Forms: ED Department Discharge, ED Return to Work/School Form Additional Instructions: reduce your intake of fat. you should slowly ramp up fat intake until you notice a level of tolerance. as this is what is likely the cause of your pain. if pain continues without provocation, or you have any new concerns, return to ER or clinic for recheck. Sepsis Event Note (ED) - Focused Exam Vital Signs: Vital Signs Temp Pulse Resp BP Pulse Ox 01/07/21 03:29 98.5 F 79 18 143/66 H 96 - My Orders Last 24 Hours: My Active Orders 01/07/21 03:52 Chest 2V [CR] Stat - Assessment/Plan Last 24 Hours: My Active Orders 01/07/21 03:52 Chest 2V [CR] Stat
[2021-01-07] MEDS: Prochlorperazine 10 MG/2 ML SDV IVPUSH ONE (04:45)
[2021-01-07] MEDS: Morphine 2 MG/ML SYRINGE IVPUSH ONE (04:50)
[2021-01-07 06:20] VITALS: BP 143/66; PULSE 79
--- NOTE | 2021-01-09 07:36 | CR ---
DATE OF SERVICE: 01/07/21 CLINICAL DATA: epigastric chest pain PA AND LATERAL CHEST: Comparison is made to a prior exam dated 01/02/21. The cardiac pacer and pacer wires remain unchanged in position. The heart and lungs are stable. No evidence of acute intrathoracic disease. [id number] [facility]
== END 2021-01-07 05:45 | disposition home or self-care (01) ==
LOC: LB.ED 03:20
DX: R10.13 Epigastric pain (principal); I48.91 Unspecified atrial fibrillation; E78.00 Pure hypercholesterolemia, unspecified; I10 Essential (primary) hypertension; K21.9 Gastro-esophageal reflux disease without esophagitis; G43.909 Migraine, unspecified, not intractable, without status migrainosus; E11.9 Type 2 diabetes mellitus without complications; E66.9 Obesity, unspecified; Z68.43 Body mass index [BMI] 50.0-59.9, adult; Z86.711 Personal history of pulmonary embolism; Z88.8 Allergy status to other drugs, medicaments and biological substances; Z91.018 Allergy to other foods; Z79.4 Long term (current) use of insulin; Z79.82 Long term (current) use of aspirin; Z79.01 Long term (current) use of anticoagulants; Z79.899 Other long term (current) drug therapy; Z90.49 Acquired absence of other specified parts of digestive tract
CPT/HCPCS: 36415; 71046; 80053; 83690; 84484; 85025; 96374; 96375; 99284-25; J0780; J2270

== ENCOUNTER 2021-01-13 14:30 | Emergency (ER) | payer MEDICARE ==
[2021-01-13] MEDS: GI Cocktail Oral Solution 30 ML PO ONE (15:05)
[2021-01-13] MEDS: Morphine 10 MG/ML SDV ONE ×2 (15:15→16:07)
[2021-01-13] MEDS: Morphine 10 MG/ML Syringe IVPUSH ONE ×2 (15:16→15:40)
[2021-01-13] MEDS ORDERED: 50% Dextrose in Water 50 ML Syringe IVPUSH PRN (15:54)
[2021-01-13] MEDS ORDERED: Glucagon,Human Recombinant 1 MG Vial IM PRN (15:54)
[2021-01-13] MEDS: Sodium Chloride 0.9% 1,000 ML IV ONE (16:15)
[2021-01-13] MEDS: Ketorolac 30 MG/ML SDV IVPUSH ONE (16:19)
[2021-01-13] MEDS: Ketorolac 30 MG/ML SDV ONE (16:35)
[2021-01-13] MEDS: Insulin Regular, Human 100 Units/ML 3 ML Vial IV ONE (16:47)
[2021-01-13 18:11] VITALS: BP 121/58; PULSE 73
--- NOTE | 2021-01-13 18:24 | EDM.PDOC ---
ED HPI GENERAL MEDICAL PROBLEM - General Chief Complaint: Chest Pain Stated Complaint: HEART PROBLEM/ SHORTNESS OF BREATH Time Seen by Provider: 01/13/21 15:15 - History of Present Illness INITIAL COMMENTS - FREE TEXT/NARRATIVE: Patient comes in with his by private car with complaints of chest pain on the left side, rated at 8/10. He states it started less than an hour ago. He did take nitro tablets x3 without any relief, and he also took 3 baby aspirin. Patient states he has felt weaker than normal lately, and a couple of times had to hang onto something while he was walking because of feeling unsteady. He has not been running a fever he denies any problems with coughing, shortness of breath, wheezing, nausea or vomiting. 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 Middle Posterior Chest Pain Score (Numeric/FACES): 2 - Related Data Allergies Allergy/AdvReac Type Severity Reaction Status Date / Time caffeine Allergy Dizziness Verified 01/13/21 14:47 coffee (Coffea arabica) Allergy Headache Verified 01/13/21 14:47 nifedipine [From Procardia] AdvReac Mild Constipatio Verified 01/13/21 14:47 n Home Meds: Home Meds Omeprazole 20 mg PO BID 05/26/15 [History] Metoclopramide HCl [Reglan] 10 mg PO QIDACANDBED 03/29/17 [History] Insulin Pump Syringe, 3 mL [Minimed [place]] 1 each ASDIRECTED 04/04/17 [History] Isosorbide Mononitrate [Isosorbide Mononitrate ER] 120 mg PO DAILY 09/09/17 [History] Aspirin [Halfprin] 81 mg PO DAILY 12/03/19 [History] Gabapentin [Neurontin] 300 mg PO DAILY 12/03/19 [History] Acetaminophen 650 mg PO ASDIRECTED PRN 12/08/19 [History] Cyclobenzaprine [Flexeril] 10 mg PO TID PRN 12/08/19 [History] Rizatriptan Benzoate [Rizatriptan] 10 mg PO DAILY PRN 04/10/20 [History] Fluticasone/Umeclidin/Vilanter [Trelegy Ellipta 100-62.5-25] 1 each IH DAILY 09/03/20 [Rx] Famotidine [Pepcid] 40 mg PO DAILY 12/19/20 [History] Insulin Aspart [NovoLOG] 45 units SQ TIDAC 12/19/20 [History] Nitroglycerin [Nitrostat] 0.4 mg PO ASDIRECTED 12/19/20 [History] LORazepam [Ativan] 0.5 mg PO TID PRN tablet 12/21/20 [Rx] Meclizine [Antivert] 25 mg PO Q4H PRN tab.chew 12/21/20 [Rx] Melatonin 10 mg PO BEDTIME cap 12/21/20 [Rx] Tamsulosin [Flomax] 0.4 mg PO DAILY cap.er 12/21/20 [Rx] atorvaSTATin [Lipitor] 80 mg PO BEDTIME tablet 12/21/20 [Rx] metOLazone [Zaroxolyn] 2.5 mg PO MoTh tablet 12/21/20 [Rx] traMADol [Ultram] 50 mg PO Q6H PRN 01/02/21 [History] Clopidogrel [Plavix] 75 mg PO DAILY 01/13/21 [History] FLUoxetine [PROzac] 10 mg PO BID 01/13/21 [History] Furosemide [Lasix] 20 mg PO DAILY 01/13/21 [History] Furosemide [Lasix] 60 mg PO ASDIRECTED 01/13/21 [History] Losartan [Cozaar] 25 mg PO DAILY 01/13/21 [History] Metoprolol Succinate [Toprol XL] 25 mg PO DAILY 01/13/21 [History] Warfarin [Coumadin] 1 mg PO MOTUWETHFRSA@1800 01/13/21 [History] Warfarin [Coumadin] 2 mg PO MARTINEZ@1800 01/13/21 [History] Past Medical History - Past Health History Medical/Surgical History: Denies Medical/Surgical History HEENT History: Reports: Cataract, Impaired Vision, Other (See Below) Other HEENT History: Lu's esophagus Cardiovascular History: Reports: Afib, Angina, Automatic Implantable Ca rdioverter Defibrillators, High Cholesterol, Hypertension, Pacemaker, SOB on Exertion Other Cardiovascular History: Ablation in July,, angiogram 07/25/2017 Respiratory History: Reports: PE, Pneumonia, Recurrent, Sleep Apnea, SOB Other Respiratory History: wears a cpap at night Gastrointestinal History: Reports: Bowel Obstruction, Chronic Constipation, GERD, Other (See Below) Other Gastrointestinal History: duodenal ulcer Genitourinary History: Reports: Renal Calculus, Other (See Below) Other Genitourinary History: prostate stent placed 10/01/2016 Musculoskeletal History: Reports: Back Pain, Chronic Other Musculoskeletal History: Neck pain causing migraines Neurological History: Reports: Migraines Other Neuro History: Patient had vertebrae in neck fused. Resolved some or most of headaches. Psychiatric History: Reports: Depression, Emotional Problems Endocrine/Metabolic History: Reports: Diabetes, Type II, Obesity/BMI 30+ Other Endocrine/Metabolic History: pt has insulin pump Hematologic History: Reports: B12 Deficiency, Blood Transfusion(s) Oncologic (Cancer) History: Reports: None Dermatologic History: Reports: Other (See Below) Other Dermatologic History: Had pre-cancer lesion removed to R arm. Has lesion to L wrist. - Infectious Disease History Infectious Disease History: Reports: Chicken Pox, Measles, Rubella - Past Surgical History Head Surgeries/Procedures: Reports: None HEENT Surgical History: Reports: Tonsillectomy Other HEENT Surgeries/Procedures: C3 and C4 fusion- 2014 Cardiovascular Surgical History: Reports: Cardiac Ablation, Pacer Other Cardiovascular Surgeries/Procedures: Ablation in 2014 Respiratory Surgical History: Reports: None GI Surgical History: Reports: Cholecystectomy, Colonoscopy, Hernia, Inguinal, Other (See Below) Other GI Surgeries/Procedures: laproscopic sx for infestigation of constipation issues Male Surgical History: Reports: Kidney Stone Extraction, Lithotripsy ([facility]) Endocrine Surgical History: Reports: None Neurological Surgical History: Reports: C-Spine, Spinal Fusion Other Neurological Surgeries/Procedures: Woke this Am with CARDONA - currently rates at 9.5/10 Musculoskeletal Surgical History: Reports: Knee Replacement Other Musculoskeletal Surgeries/Procedures:: C3-4 vertebral fusion Social & Family History - Family History Family Medical History: No Pertinent Family History HEENT: Reports: Cataract Cardiac: Reports: [place] Respiratory: Reports: COPD GI: Reports: None : Reports: None Endocrine/Metabolic: Reports: Diabetes, type II Oncologic: Reports: Brain, Colon, Lung - Tobacco Use Tobacco Use Status *Q: Never Tobacco User - Caffeine Use Caffeine Use: Reports: None Other Caffeine Use: diet coke - 3-4 cans /day - Recreational Drug Use Recreational Drug Use: No - Living Situation & Occupation Living situation: Reports: Occupation: Unemployed ED ROS GENERAL - Review of Systems Review Of Systems: Comprehensive ROS is negative, except as noted in HPI. Cardiovascular: Reports: Chest Pain Neurological: Reports: Weakness ED EXAM, GENERAL - Physical Exam Exam: See Below Free Text/Narrative:: Objective General appearance patient awake and alert no respiratory distress he is morbidly obese. Vital signs are reviewed as listed they are basically normal. An EKG was obtained showing a normal sinus rhythm without any obvious ST elevation or depression. Oral mucous membranes are slightly dry. Lungs are clear. Cardiac heart sounds are distinct without any obvious murmurs. Abdomen is soft, nontender to palpation bowel sounds are present. The patient's pain appears to be in the lower left chest wall that seems to radiate towards his back. #1 Interpretation EKG Date: 01/13/21 Time: 15:30 Course - Vital Signs Last Recorded V/S: Last Vital Signs Temp Pulse 73 01/13/21 18:10 Resp 20 01/13/21 18:10 BP 121/58 L 01/13/21 18:10 Pulse Ox 96 01/13/21 17:01 - Orders/Labs/Meds Orders: Active Orders 24 hr Category Date Time Status EKG Documentation Completion [RC] ASDIRECTED Care 01/13/21 14:51 Active EKG Documentation Completion [RC] ASDIRECTED Care 01/13/21 14:56 Active Chest 1V Frontal [CR] Stat Exams 01/13/21 15:05 Taken Dextrose 50% in Water Med 01/13/21 15:54 Active 50 ml IVPUSH ASDIRECTED PRN Glucagon,Human Recombinant [GlucaGen] Med 01/13/21 15:54 Active 1 mg IM ASDIRECTED PRN Sodium Chloride 0.9% [Normal Saline] 1,000 ml Med 01/13/21 15:55 Active IV .BOLUS EKG 12 Lead [EK] Routine Ther 01/13/21 14:50 Ordered Medication Orders Dextrose/Water (50% Dextrose In Water 50 Ml Syringe) 50 ml IVPUSH ASDIRECTED PRN PRN Reason: Hypoglycemia Glucagon (Glucagon,Human Recombinant 1 Mg Vial) 1 mg IM ASDIRECTED PRN PRN Reason: Hypoglycemia Sodium Chloride (Normal Saline) 1,000 mls @ 250 mls/hr IV .BOLUS ONE Stop: 01/13/21 19:54 Last Admin: 01/13/21 16:15 Dose: 250 mls/hr Documented by: KONRAD Labs: Laboratory Tests 01/13/21 01/13/21 01/13/21 Range/Units 14:56 14:56 15:00 WBC 9.9 (4.0-11.0) K/uL RBC 4.14 L (4.50-6.50) M/uL Hgb 11.9 L (13.0-18.0) g/dL Hct 35.6 L (40.0-54.0) % MCV 86 (76-96) fL MCH 28.7 (27.0-32.0) pg MCHC 33.4 (31.0-35.0) g/dL RDW 15.1 (11.0-16.0) % Plt Count 177 (150-400) K/uL MPV 11.6 H (6.0-10.0) fL Neut % (Auto) 56.3 (45.0-70.0) % Lymph % (Auto) 33.6 (20.0-40.0) % [place] % (Auto) 7.9 (3.0-10.0) % Eos % (Auto) 1.8 (1.0-5.0) % Baso % (Auto) 0.4 (0.0-0.5) % Neut # (Auto) 5.57 (2.00-7.50) K/uL Lymph # (Auto) 3.32 (1.50-4.00) K/uL [place] # (Auto) 0.78 (0.20-0.80) K/uL Eos # (Auto) 0.18 (0.04-0.40) K/uL Baso # (Auto) 0.04 (0.02-0.10) K/uL PT 16.9 H (9.0-11.5) sec INR 1.7 (1.0-3.5) Sodium 133 L (136-145) mmol/L Potassium 3.2 L (3.5-5.1) mmol/L Chloride 101 (98-107) mmol/L Carbon Dioxide 27.6 (21.0-32.0) mmol/L Anion Gap 7.6 (5.0-15.0) mmol/L BUN 27 H (8-26) mg/dL Creatinine 1.65 H (0.70-1.30) mg/dL Est Cr Clr Drug Dosing 43.76 mL/min Estimated GFR (MDRD) 41 L (>60) MLS/MIN BUN/Creatinine Ratio 16.4 (6-25) Glucose 401 H* D (74-100) mg/dL POC Glucose (74-110) mg/dL Calcium 8.3 L (8.5-10.1) mg/dL Total Bilirubin 0.6 (0.0-1.0) mg/dL AST 21 (15-37) U/L ALT 32 (12-78) U/L Alkaline Phosphatase 135 H (46-116) U/L Troponin I < 0.017 (0.000-0.060) ng/mL Total Protein 6.9 (6.4-8.2) g/dL Albumin 3.1 L (3.4-5.0) g/dL Globulin 3.8 (2.2-4.2) g/dL Albumin/Globulin Ratio 0.8 (0.8-2.0) Lipase (73-393) U/L 01/13/21 01/13/21 01/13/21 Range/Units 15:00 16:40 17:22 WBC (4.0-11.0) K/uL RBC (4.50-6.50) M/uL Hgb (13.0-18.0) g/dL Hct (40.0-54.0) % MCV (76-96) fL MCH (27.0-32.0) pg MCHC (31.0-35.0) g/dL RDW (11.0-16.0) % Plt Count (150-400) K/uL MPV (6.0-10.0) fL Neut % (Auto) (45.0-70.0) % Lymph % (Auto) (20.0-40.0) % [place] % (Auto) (3.0-10.0) % Eos % (Auto) (1.0-5.0) % Baso % (Auto) (0.0-0.5) % Neut # (Auto) (2.00-7.50) K/uL Lymph # (Auto) (1.50-4.00) K/uL [place] # (Auto) (0.20-0.80) K/uL Eos # (Auto) (0.04-0.40) K/uL Baso # (Auto) (0.02-0.10) K/uL PT (9.0-11.5) sec INR (1.0-3.5) Sodium (136-145) mmol/L Potassium (3.5-5.1) mmol/L Chloride (98-107) mmol/L Carbon Dioxide (21.0-32.0) mmol/L Anion Gap (5.0-15.0) mmol/L BUN (8-26) mg/dL Creatinine (0.70-1.30) mg/dL Est Cr Clr Drug Dosing mL/min Estimated GFR (MDRD) (>60) MLS/MIN BUN/Creatinine Ratio (6-25) Glucose 364 H (74-100) mg/dL POC Glucose 276 H (74-110) mg/dL Calcium (8.5-10.1) mg/dL Total Bilirubin (0.0-1.0) mg/dL AST (15-37) U/L ALT (12-78) U/L Alkaline Phosphatase (46-116) U/L Troponin I (0.000-0.060) ng/mL Total Protein (6.4-8.2) g/dL Albumin (3.4-5.0) g/dL Globulin (2.2-4.2) g/dL Albumin/Globulin Ratio (0.8-2.0) Lipase 231 D (73-393) U/L 01/13/21 01/13/21 Range/Units 18:01 18:04 WBC (4.0-11.0) K/uL RBC (4.50-6.50) M/uL Hgb (13.0-18.0) g/dL Hct (40.0-54.0) % MCV (76-96) fL MCH (27.0-32.0) pg MCHC (31.0-35.0) g/dL RDW (11.0-16.0) % Plt Count (150-400) K/uL MPV (6.0-10.0) fL Neut % (Auto) (45.0-70.0) % Lymph % (Auto) (20.0-40.0) % [place] % (Auto) (3.0-10.0) % Eos % (Auto) (1.0-5.0) % Baso % (Auto) (0.0-0.5) % Neut # (Auto) (2.00-7.50) K/uL Lymph # (Auto) (1.50-4.00) K/uL [place] # (Auto) (0.20-0.80) K/uL Eos # (Auto) (0.04-0.40) K/uL Baso # (Auto) (0.02-0.10) K/uL PT (9.0-11.5) sec INR (1.0-3.5) Sodium (136-145) mmol/L Potassium (3.5-5.1) mmol/L Chloride (98-107) mmol/L Carbon Dioxide (21.0-32.0) mmol/L Anion Gap (5.0-15.0) mmol/L BUN (8-26) mg/dL Creatinine (0.70-1.30) mg/dL Est Cr Clr Drug Dosing mL/min Estimated GFR (MDRD) (>60) MLS/MIN BUN/Creatinine Ratio (6-25) Glucose (74-100) mg/dL POC Glucose 272 H 270 H (74-110) mg/dL Calcium (8.5-10.1) mg/dL Total Bilirubin (0.0-1.0) mg/dL AST (15-37) U/L ALT (12-78) U/L Alkaline Phosphatase (46-116) U/L Troponin I (0.000-0.060) ng/mL Total Protein (6.4-8.2) g/dL Albumin (3.4-5.0) g/dL Globulin (2.2-4.2) g/dL Albumin/Globulin Ratio (0.8-2.0) Lipase (73-393) U/L Meds: Medications Generic Name Dose Route Start Last Admin Trade Name Freq PRN Reason Stop Dose Admin Dextrose/Water 50 ml 01/13/21 15:54 50% Dextrose In Water 50 Ml Syringe IVPUSH ASDIRECTED PRN Hypoglycemia Glucagon 1 mg 01/13/21 15:54 Glucagon,Human Recombinant 1 Mg Vial IM ASDIRECTED PRN Hypoglycemia Sodium Chloride 1,000 mls @ 250 mls/hr 01/13/21 15:55 01/13/21 16:15 Normal Saline IV 01/13/21 19:54 250 mls/hr .BOLUS ONE Administration Discontinued Medications Generic Name Dose Route Start Last Admin Trade Name Awilda BAEN Reason Stop Dose Admin Al Hydroxide/Mg Hydroxide 30 ml 01/13/21 15:02 01/13/21 15:05 Gi Cocktail Oral Solution 30 Ml PO 01/13/21 15:03 30 ml ONETIME ONE Administration Insulin Human Regular 10 unit 01/13/21 15:54 01/13/21 16:47 Insulin Regular, Human 100 Units/Ml 3 Ml Vial IV 01/13/21 15:55 10 units ONETIME ONE Administration Ketorolac Tromethamine 30 mg 01/13/21 16:00 01/13/21 16:19 Ketorolac 30 Mg/Ml Sdv IVPUSH 01/13/21 16:01 30 mg ONETIME ONE Administration Ketorolac Tromethamine Confirm 01/13/21 16:30 01/13/21 16:35 Ketorolac 30 Mg/Ml Sdv Administered 01/13/21 16:31 Not Given Dose 30 mg .ROUTE .STK-MED ONE Morphine Sulfate 5 mg 01/13/21 15:00 01/13/21 15:16 Morphine 10 Mg/Ml Syringe IVPUSH 01/13/21 15:01 5 mg ONETIME ONE Administration Morphine Sulfate Confirm 01/13/21 15:22 01/13/21 15:15 Morphine 10 Mg/Ml Sdv Administered 01/13/21 15:23 Not Given Dose 10 mg .ROUTE .STK-MED ONE Morphine Sulfate 5 mg 01/13/21 15:34 01/13/21 15:40 Morphine 10 Mg/Ml Syringe IVPUSH 01/13/21 15:35 5 mg ONETIME ONE Administration Morphine Sulfate Confirm 01/13/21 15:49 01/13/21 16:07 Morphine 10 Mg/Ml Sdv Administered 01/13/21 15:50 Not Given Dose 10 mg .ROUTE .STK-MED ONE - Re-Assessments/Exams Free Text/Narrative Re-Assessment/Exam: 01/13/21 18:21 An IV was started and the patient was given morphine 5 mg IV. He also was given GI cocktail of 30 mL. These measures do not seem to help his pain so another 5 mg of morphine was given. This did seem to bring his pain down to 5 or 6/10. At this time Toradol 30 mg was given IV and this helped his pain significantly, bringing it down to about a 2/10. The patient states he feels much better now. Labs today include a CBC which is unremarkable CMP shows a nonfasting blood sugar of 400. The patient has a home monitor that he carries with him that shows a current reading of 260. IV fluids were started and he was given 500 cc of normal saline. And 10 units of regular insulin. This brought his blood sugar down to in the 270 range. The patient was assisted to a standing position he was able to walk around the trauma room with a walker with no significant weakness. He again states that he feels much better and feels like he can go home. He will be discharged home he I should say we also noticed his insulin pump was out of the skin at some point during our visit today so I believe he missed the dose or possibly more of insulin. The patient will get this checked when he gets home as well as his monitor which she has phone numbers to do and he seems competent to do this. He will be discharged with his and told to use a walker to assist with ambulation as needed. The patient has no further questions end of dictation Departure - Departure Time of Disposition: 18:20 Disposition: Home, Self-Care 01 Condition: Good Clinical Impression: Chest pain of uncertain etiology, Hyperglycemia Instructions: Nonspecific Chest Pain, Adult, Hyperglycemia, [id number]-Bajq Referrals: Hannah Dutton NP [Primary Care Provider] - Forms: ED Department Discharge Care Plan Goals: return as needed Sepsis Event Note (ED) - Evaluation Sepsis Screening Result: No Definite Risk - Focused Exam Vital Signs: Vital Signs Pulse Resp BP Pulse Ox 01/13/21 18:10 73 20 121/58 L 01/13/21 17:01 77 16 111/58 L 96 01/13/21 16:36 79 118/58 L 01/13/21 16:15 74 105/57 L 01/13/21 16:00 79 119/49 L 01/13/21 15:45 79 128/53 L 01/13/21 15:06 78 15 114/66 99 01/13/21 14:53 77 22 H 114/59 L 97 01/13/21 14:51 77 22 H 114/59 L 97 - My Orders Last 24 Hours: My Active Orders 01/13/21 14:50 EKG 12 Lead [EK] Routine 01/13/21 14:51 EKG Documentation Completion [RC] ASDIRECTED 01/13/21 14:56 EKG Documentation Completion [RC] ASDIRECTED 01/13/21 15:05 Chest 1V Frontal [CR] Stat 01/13/21 15:54 Dextrose 50% in Water 50 ml IVPUSH ASDIRECTED PRN Glucagon,Human Recombinant [GlucaGen] 1 mg IM ASDIRECTED PRN 01/13/21 15:55 Sodium Chloride 0.9% [Normal Saline] 1,000 ml IV .BOLUS - Assessment/Plan Last 24 Hours: My Active Orders 01/13/21 14:50 EKG 12 Lead [EK] Routine 01/13/21 14:51 EKG Documentation Completion [RC] ASDIRECTED 01/13/21 14:56 EKG Documentation Completion [RC] ASDIRECTED 01/13/21 15:05 Chest 1V Frontal [CR] Stat 01/13/21 15:54 Dextrose 50% in Water 50 ml IVPUSH ASDIRECTED PRN Glucagon,Human Recombinant [GlucaGen] 1 mg IM ASDIRECTED PRN 01/13/21 15:55 Sodium Chloride 0.9% [Normal Saline] 1,000 ml IV .BOLUS
--- NOTE | 2021-01-14 12:21 | CR ---
DATE OF SERVICE: 01/13/2021 CLINICAL DATA: Chest pain. AP PORTABLE CHEST: Comparison is made to a prior exam dated 01/07/2021. The patient has taken a very poor inspiration. The cardiac pacer and pacer wires remain unchanged in position. The heart size is stable. There are mild atelectatic changes in both lung bases. The lungs are otherwise clear. No pneumothorax. No pleural effusions. [id number] [facility]
== END 2021-01-13 18:21 | disposition home or self-care (01) ==
LOC: LB.ED 14:30
DX: R07.9 Chest pain, unspecified (principal); E11.65 Type 2 diabetes mellitus with hyperglycemia; I10 Essential (primary) hypertension; J18.9 Pneumonia, unspecified organism; K21.9 Gastro-esophageal reflux disease without esophagitis; G43.909 Migraine, unspecified, not intractable, without status migrainosus; Z79.01 Long term (current) use of anticoagulants; Z79.4 Long term (current) use of insulin; Z79.899 Other long term (current) drug therapy; Z79.52 Long term (current) use of systemic steroids; Z79.02 Long term (current) use of antithrombotics/antiplatelets
CPT/HCPCS: 36415; 71045; 80053; 82947; 83690; 84484; 85025; 85610; 93005; 96374; 96375; 99285; A9270; J1885; J2270; J7030

== ENCOUNTER 2021-01-16 18:29 | Emergency (ER) | payer MEDICARE ==
[2021-01-16 18:49] VITALS: BP 123/62; PULSE 82
--- NOTE | 2021-01-16 20:20 | EDM.PDOC ---
ED HPI GENERAL MEDICAL PROBLEM - General Chief Complaint: General Stated Complaint: general Time Seen by Provider: 01/16/21 19:00 Source of Information: Reports: Patient History Limitations: Reports: No Limitations - History of Present Illness INITIAL COMMENTS - FREE TEXT/NARRATIVE: patient presented to the ER for concerns of high blood sugar. Reports that he was at his PCP office in [place] today for a checkup - had blood tests done and on his way back home - he got called by a nurse telling him that his BS was high in 450 and that he needs to go to the ER for a check up. He denies any symptoms and reports feeling well. h/o morbid obesity, and T2DM and insulin pump. Reports that his BS usually runs 250-300, but today he had a dinner prior to his blood test checkup. Had a mashed potato and a soda drink. Denies CP, SOB, fever or chills. - Related Data Allergies Allergy/AdvReac Type Severity Reaction Status Date / Time caffeine Allergy Dizziness Verified 01/13/21 14:47 coffee (Coffea arabica) Allergy Headache Verified 01/13/21 14:47 nifedipine [From Procardia] AdvReac Mild Constipatio Verified 01/13/21 14:47 n Home Meds: Home Meds Omeprazole 20 mg PO BID 05/26/15 [History] Metoclopramide HCl [Reglan] 10 mg PO QIDACANDBED 03/29/17 [History] Insulin Pump Syringe, 3 mL [Minimed [place]] 1 each ASDIRECTED 04/04/17 [History] Isosorbide Mononitrate [Isosorbide Mononitrate ER] 120 mg PO DAILY 09/09/17 [History] Aspirin [Halfprin] 81 mg PO DAILY 12/03/19 [History] Gabapentin [Neurontin] 300 mg PO DAILY 12/03/19 [History] Acetaminophen 650 mg PO ASDIRECTED PRN 12/08/19 [History] Cyclobenzaprine [Flexeril] 10 mg PO TID PRN 12/08/19 [History] Rizatriptan Benzoate [Rizatriptan] 10 mg PO DAILY PRN 04/10/20 [History] Fluticasone/Umeclidin/Vilanter [Trelegy Ellipta 100-62.5-25] 1 each IH DAILY 09/03/20 [Rx] Famotidine [Pepcid] 40 mg PO DAILY 12/19/20 [History] Insulin Aspart [NovoLOG] 45 units SQ TIDAC 12/19/20 [History] Nitroglycerin [Nitrostat] 0.4 mg PO ASDIRECTED 12/19/20 [History] LORazepam [Ativan] 0.5 mg PO TID PRN tablet 12/21/20 [Rx] Meclizine [Antivert] 25 mg PO Q4H PRN tab.chew 12/21/20 [Rx] Melatonin 10 mg PO BEDTIME cap 12/21/20 [Rx] Tamsulosin [Flomax] 0.4 mg PO DAILY cap.er 12/21/20 [Rx] atorvaSTATin [Lipitor] 80 mg PO BEDTIME tablet 12/21/20 [Rx] metOLazone [Zaroxolyn] 2.5 mg PO MoTh tablet 12/21/20 [Rx] traMADol [Ultram] 50 mg PO Q6H PRN 01/02/21 [History] Clopidogrel [Plavix] 75 mg PO DAILY 01/13/21 [History] FLUoxetine [PROzac] 10 mg PO BID 01/13/21 [History] Furosemide [Lasix] 20 mg PO DAILY 01/13/21 [History] Furosemide [Lasix] 60 mg PO ASDIRECTED 01/13/21 [History] Losartan [Cozaar] 25 mg PO DAILY 01/13/21 [History] Metoprolol Succinate [Toprol XL] 25 mg PO DAILY 01/13/21 [History] Warfarin [Coumadin] 1 mg PO MOTUWETHFRSA@1800 01/13/21 [History] Warfarin [Coumadin] 2 mg PO MARTINEZ@1800 01/13/21 [History] Past Medical History - Past Health History Medical/Surgical History: Denies Medical/Surgical History HEENT History: Reports: Cataract, Impaired Vision, Other (See Below) Other HEENT History: Lu's esophagus Cardiovascular History: Reports: Afib, Angina, Automatic Implantable Cardioverter Defibrillators, High Cholesterol, Hypertension, Pacemaker, SOB on Exertion Other Cardiovascular History: Ablation in July,, angiogram 07/25/2017 Respiratory History: Reports: PE, Pneumonia, Recurrent, Sleep Apnea, SOB Other Respiratory History: wears a cpap at night Gastrointestinal History: Reports: Bowel Obstruction, Chronic Constipation, GERD, Other (See Below) Other Gastrointestinal History: duodenal ulcer Genitourinary History: Reports: Renal Calculus, Other (See Below) Other Genitourinary History: prostate stent placed 10/01/2016 Musculoskeletal History: Reports: Back Pain, Chronic Other Musculoskeletal History: Neck pain causing migraines Neurological History: Reports: Migraines Other Neuro History: Patient had vertebrae in neck fused. Resolved some or most of headaches. Psychiatric History: Reports: Depression, Emotional Problems Endocrine/Metabolic History: Reports: Diabetes, Type II, Obesity/BMI 30+ Other Endocrine/Metabolic History: pt has insulin pump Hematologic History: Reports: B12 Deficiency, Blood Transfusion(s) Oncologic (Cancer) History: Reports: None Dermatologic History: Reports: Other (See Below) Other Dermatologic History: Had pre-cancer lesion removed to R arm. Has lesion to L wrist. - Infectious Disease History Infectious Disease History: Reports: Chicken Pox, Measles, Rubella - Past Surgical History Head Surgeries/Procedures: Reports: None HEENT Surgical History: Reports: Tonsillectomy Other HEENT Surgeries/Procedures: C3 and C4 fusion- 2014 Cardiovascular Surgical History: Reports: Cardiac Ablation, Pacer Other Cardiovascular Surgeries/Procedures: Ablation in 2014 Respiratory Surgical History: Reports: None GI Surgical History: Reports: Cholecystectomy, Colonoscopy, Hernia, Inguinal, Other (See Below) Other GI Surgeries/Procedures: laproscopic sx for infestigation of constipation issues Male Surgical History: Reports: Kidney Stone Extraction, Lithotripsy (ESWL) Endocrine Surgical History: Reports: None Neurological Surgical History: Reports: C-Spine, Spinal Fusion Other Neurological Surgeries/Procedures: Woke this Am with CARDONA - currently rates at 9.5/10 Musculoskeletal Surgical History: Reports: Knee Replacement Other Musculoskeletal Surgeries/Procedures:: C3-4 vertebral fusion Social & Family History - Family History Family Medical History: No Pertinent Family History HEENT: Reports: Cataract Cardiac: Reports: [place] Respiratory: Reports: COPD GI: Reports: None : Reports: None Endocrine/Metabolic: Reports: Diabetes, type II Oncologic: Reports: Brain, Colon, Lung - Caffeine Use Caffeine Use: Reports: None Other Caffeine Use: diet coke - 3-4 cans /day - Living Situation & Occupation Living situation: Reports: Occupation: Unemployed ED ROS GENERAL - Review of Systems Review Of Systems: See Below Constitutional: Reports: No Symptoms HEENT: Reports: No Symptoms Respiratory: Reports: No Symptoms Cardiovascular: Reports: No Symptoms GI/Abdominal: Reports: No Symptoms Neurological: Reports: No Symptoms ED EXAM, GENERAL - Physical Exam Exam: See Below Exam Limited By: No Limitations General Appearance: Alert, WD/WN, No Apparent Distress Eye Exam: Bilateral Eye: EOMI, PERRL Head: Atraumatic Respiratory/Chest: No Respiratory Distress, Lungs Clear Cardiovascular: Normal Peripheral Pulses, Regular Rate, Rhythm GI/Abdominal: Normal Bowel Sounds, Soft, Non-Tender Neurological: Alert, Oriented, No Motor/Sensory Deficits Psychiatric: Normal Affect, Normal Mood Course - Vital Signs Last Recorded V/S: Last Vital Signs Temp 36.1 C 01/16/21 18:48 Pulse 82 01/16/21 18:48 Resp 20 01/16/21 18:48 BP 123/62 01/16/21 18:48 Pulse Ox 95 01/16/21 18:48 - Re-Assessments/Exams Free Text/Narrative Re-Assessment/Exam: bedside blood sugar check 160 while in the ER his files and blood tests were ordered from the OSH for review - Cr is 1.6 ( his baseline is 1.6-1.8 ). Patient feeling assured and wants to go home. Departure - Departure Time of Disposition: 20:36 Disposition: Home, Self-Care 01 Condition: Good Clinical Impression: Hyperglycemia - Discharge Information *PRESCRIPTION DRUG MONITORING PROGRAM REVIEWED*: Not Applicable *COPY OF PRESCRIPTION DRUG MONITORING REPORT IN PATIENT KAVON: Not Applicable Instructions: Hyperglycemia, [id number] Referrals: PCP,None [Primary Care Provider] - Forms: ED Department Discharge Additional Instructions: - continue home medications as before - good job with your weight loss journey - next goal is to reach 350 lbs - follow up with your PCP as needed Sepsis Event Note (ED) - Evaluation Sepsis Screening Result: No Definite Risk - Focused Exam Vital Signs: Vital Signs Temp Pulse Pulse Resp BP Pulse Ox 01/16/21 18:48 36.1 C 81 82 20 123/62 95 01/16/21 18:36 36.6 C 86 22 H 114/57 L 96 - Problem List & Annotations (1) Hyperglycemia SNOMED Code(s): 86950116 Code(s): R73.9 - HYPERGLYCEMIA, UNSPECIFIED Status: Acute Priority: Medium Current Visit: No - Problem List Review Problem List Initiated/Reviewed/Updated: Yes - Assessment/Plan Plan: - continue home medications as before - good job with your weight loss journey - next goal is to reach 350 lbs - follow up with your PCP as needed
== END 2021-01-16 20:45 | disposition home or self-care (01) ==
LOC: LB.ED 18:29
DX: E11.65 Type 2 diabetes mellitus with hyperglycemia (principal); I48.91 Unspecified atrial fibrillation; E78.00 Pure hypercholesterolemia, unspecified; I10 Essential (primary) hypertension; K21.9 Gastro-esophageal reflux disease without esophagitis; E66.9 Obesity, unspecified; Z68.43 Body mass index [BMI] 50.0-59.9, adult; Z95.0 Presence of cardiac pacemaker; Z95.810 Presence of automatic (implantable) cardiac defibrillator; Z91.018 Allergy to other foods; Z79.82 Long term (current) use of aspirin; Z79.01 Long term (current) use of anticoagulants; Z79.899 Other long term (current) drug therapy
CPT/HCPCS: 82947; 99284

== ENCOUNTER 2021-01-17 15:27 | Emergency (ER) | payer MEDICARE ==
[2021-01-17] MEDS ORDERED: Nitroglycerin 0.4 MG Tab.SL SL ONE (16:07)
--- NOTE | 2021-01-17 16:08 | EDM.PDOC ---
ED HPI GENERAL MEDICAL PROBLEM - General Chief Complaint: Chest Pain Stated Complaint: CHEST PAIN Time Seen by Provider: 01/17/21 15:50 Source of Information: Reports: Patient History Limitations: Reports: No Limitations - History of Present Illness INITIAL COMMENTS - FREE TEXT/NARRATIVE: patient presented to the ER with a c/o neck and back pains that are chronic, also presented with a c/o chest pain as well. no fever or chills. no SOB or dizziness. with a h/o T2DM, morbid obesity and significant numbers of visits to the ER for chronic pains. Reports that he was supposed to receive Botox for his migraine and neck pain - but missed his appointment - his next one is in 2 months. He also has a muscle relaxants at home that he didn't take it yet. He tried 2 NTG SL - with minimal help. h/o severe acid reflux disease with GERD. on PPI. Chest Pain Score (Numeric/FACES): 8 - Related Data Allergies Allergy/AdvReac Type Severity Reaction Status Date / Time caffeine Allergy Dizziness Verified 01/13/21 14:47 coffee (Coffea arabica) Allergy Headache Verified 01/13/21 14:47 nifedipine [From Procardia] AdvReac Mild Constipatio Verified 01/13/21 14:47 n Home Meds: Home Meds Omeprazole 20 mg PO BID 05/26/15 [History] Metoclopramide HCl [Reglan] 10 mg PO QIDACANDBED 03/29/17 [History] Insulin Pump Syringe, 3 mL [Minimed [place]] 1 each ASDIRECTED 04/04/17 [History] Isosorbide Mononitrate [Isosorbide Mononitrate ER] 120 mg PO DAILY 09/09/17 [ History] Aspirin [Halfprin] 81 mg PO DAILY 12/03/19 [History] Gabapentin [Neurontin] 300 mg PO DAILY 12/03/19 [History] Acetaminophen 650 mg PO ASDIRECTED PRN 12/08/19 [History] Cyclobenzaprine [Flexeril] 10 mg PO TID PRN 12/08/19 [History] Rizatriptan Benzoate [Rizatriptan] 10 mg PO DAILY PRN 04/10/20 [History] Fluticasone/Umeclidin/Vilanter [Trelegy Ellipta 100-62.5-25] 1 each IH DAILY 09/03/20 [Rx] Famotidine [Pepcid] 40 mg PO DAILY 12/19/20 [History] Insulin Aspart [NovoLOG] 45 units SQ TIDAC 12/19/20 [History] Nitroglycerin [Nitrostat] 0.4 mg PO ASDIRECTED 12/19/20 [History] LORazepam [Ativan] 0.5 mg PO TID PRN tablet 12/21/20 [Rx] Meclizine [Antivert] 25 mg PO Q4H PRN tab.chew 12/21/20 [Rx] Melatonin 10 mg PO BEDTIME cap 12/21/20 [Rx] Tamsulosin [Flomax] 0.4 mg PO DAILY cap.er 12/21/20 [Rx] atorvaSTATin [Lipitor] 80 mg PO BEDTIME tablet 12/21/20 [Rx] metOLazone [Zaroxolyn] 2.5 mg PO MoTh tablet 12/21/20 [Rx] traMADol [Ultram] 50 mg PO Q6H PRN 01/02/21 [History] Clopidogrel [Plavix] 75 mg PO DAILY 01/13/21 [History] FLUoxetine [PROzac] 10 mg PO BID 01/13/21 [History] Furosemide [Lasix] 20 mg PO DAILY 01/13/21 [History] Furosemide [Lasix] 60 mg PO ASDIRECTED 01/13/21 [History] Losartan [Cozaar] 25 mg PO DAILY 01/13/21 [History] Metoprolol Succinate [Toprol XL] 25 mg PO DAILY 01/13/21 [History] Warfarin [Coumadin] 1 mg PO MOTUWETHFRSA@1800 01/13/21 [History] Warfarin [Coumadin] 2 mg PO MARTINEZ@1800 01/13/21 [History] Past Medical History - Past Health History Medical/Surgical History: Denies Medical/Surgical History HEENT History: Reports: Cataract, Impaired Vision, Other (See Below) Other HEENT History: Lu's esophagus Cardiovascular History: Reports: Afib, Angina, Automatic Implantable Cardioverter Defibrillators, High Cholesterol, Hypertension, Pacemaker, SOB on Exertion Other Cardiovascular History: Ablation in July,, angiogram 07/25/2017 Respiratory History: Reports: PE, Pneumonia, Recurrent, Sleep Apnea, SOB Other Respiratory History: wears a cpap at night Gastrointestinal History: Reports: Bowel Obstruction, Chronic Constipation, GERD, Other (See Below) Other Gastrointestinal History: duodenal ulcer Genitourinary History: Reports: Renal Calculus, Other (See Below) Other Genitourinary History: prostate stent placed 10/01/2016 Musculoskeletal History: Reports: Back Pain, Chronic Other Musculoskeletal History: Neck pain causing migraines Neurological History: Reports: Migraines Other Neuro History: Patient had vertebrae in neck fused. Resolved some or most of headaches. Psychiatric History: Reports: Depression, Emotional Problems Endocrine/Metabolic History: Reports: Diabetes, Type II, Obesity/BMI 30+ Other Endocrine/Metabolic History: pt has insulin pump Hematologic History: Reports: B12 Deficiency, Blood Transfusion(s) Oncologic (Cancer) History: Reports: None Dermatologic History: Reports: Other (See Below) Other Dermatologic History: Had pre-cancer lesion removed to R arm. Has lesion to L wrist. - Infectious Disease History Infectious Disease History: Reports: Chicken Pox, Measles, Rubella - Past Surgical History Head Surgeries/Procedures: Reports: None HEENT Surgical History: Reports: Tonsillectomy Other HEENT Surgeries/Procedures: C3 and C4 fusion- 2014 Cardiovascular Surgical History: Reports: Cardiac Ablation, Pacer Other Cardiovascular Surgeries/Procedures: Ablation in 2014 Respiratory Surgical History: Reports: None GI Surgical History: Reports: Cholecystectomy, Colonoscopy, Hernia, Inguinal, Other (See Below) Other GI Surgeries/Procedures: laproscopic sx for infestigation of constipation issues Male Surgical History: Reports: Kidney Stone Extraction, Lithotripsy (ESWL) Endocrine Surgical History: Reports: None Neurological Surgical History: Reports: C-Spine, Spinal Fusion Other Neurological Surgeries/Procedures: Woke this Am with CARDONA - currently rates at 9.5/10 Musculoskeletal Surgical History: Reports: Knee Replacement Other Musculoskeletal Surgeries/Procedures:: C3-4 vertebral fusion Social & Family History - Family History Family Medical History: No Pertinent Family History HEENT: Reports: Cataract Cardiac: Reports: [place] Respiratory: Reports: COPD GI: Reports: None : Reports: None Endocrine/Metabolic: Reports: Diabetes, type II Oncologic: Reports: Brain, Colon, Lung - Caffeine Use Caffeine Use: Reports: None Other Caffeine Use: diet coke - 3-4 cans /day - Living Situation & Occupation Living situation: Reports: Occupation: Unemployed ED ROS GENERAL - Review of Systems Review Of Systems: See Below Constitutional: Reports: No Symptoms HEENT: Reports: No Symptoms Respiratory: Reports: No Symptoms Musculoskeletal: Reports: Back Pain Skin: Reports: No Symptoms Neurological: Reports: No Symptoms Psychiatric: Reports: No Symptoms ED EXAM, GENERAL - Physical Exam Exam: See Below Exam Limited By: No Limitations General Appearance: Alert, WD/WN, No Apparent Distress Eye Exam: Bilateral Eye: EOMI, PERRL Head: Atraumatic Neck: Normal Inspection, Supple, Non-Tender, Full Range of Motion Respiratory/Chest: No Respiratory Distress Cardiovascular: Normal Peripheral Pulses, Regular Rate, Rhythm, No Edema GI/Abdominal: Normal Bowel Sounds, Soft, Non-Tender, Other (obese) Extremities: Normal Inspection, Normal Range of Motion Neurological: Alert, Oriented, No Motor/Sensory Deficits Psychiatric: Normal Affect Skin Exam: Warm #1 Interpretation EKG Date: 01/17/21 Rhythm: NSR [place]: Normal P-Wave: Present QRS: Normal ST-T: Normal QT: Normal Course - Vital Signs Last Recorded V/S: Last Vital Signs Temp 36.4 C 01/17/21 16:28 Pulse 77 01/17/21 16:48 Resp 20 01/17/21 16:28 BP 122/52 L 01/17/21 16:48 Pulse Ox 95 01/17/21 16:28 - Orders/Labs/Meds Labs: Laboratory Tests 01/17/21 01/17/21 01/17/21 Range/Units 16:06 16:18 16:18 WBC 8.0 (4.0-11.0) K/uL RBC 3.96 L (4.50-6.50) M/uL Hgb 11.4 L (13.0-18.0) g/dL Hct 34.4 L (40.0-54.0) % MCV 87 (76-96) fL MCH 28.8 (27.0-32.0) pg MCHC 33.1 (31.0-35.0) g/dL RDW 15.1 (11.0-16.0) % Plt Count 160 (150-400) K/uL MPV 11.8 H (6.0-10.0) fL Sodium 138 (136-145) mmol/L Potassium 3.1 L (3.5-5.1) mmol/L Chloride 103 (98-107) mmol/L Carbon Dioxide 29.5 (21.0-32.0) mmol/L Anion Gap 8.6 (5.0-15.0) mmol/L BUN 29 H (8-26) mg/dL Creatinine 1.48 H (0.70-1.30) mg/dL Est Cr Clr Drug Dosing 48.79 mL/min Estimated GFR (MDRD) 47 L (>60) MLS/MIN BUN/Creatinine Ratio 19.6 (6-25) Glucose 287 H (74-100) mg/dL POC Glucose 289 H (74-110) mg/dL Calcium 8.4 L (8.5-10.1) mg/dL Troponin I < 0.017 (0.000-0.060) ng/mL Meds: Medications Discontinued Medications Generic Name Dose Route Start Last Admin Trade Name Freq PRN Reason Stop Dose Admin Al Hydroxide/Mg Hydroxide 30 ml 01/17/21 17:28 Gi Cocktail Oral Solution 30 Ml PO 01/17/21 17:29 ONETIME ONE Cyclobenzaprine HCl 10 mg 01/17/21 17:28 01/17/21 17:32 Cyclobenzaprine 10 Mg Tab PO 01/17/21 17:29 10 mg ONETIME ONE Administration Cyclobenzaprine HCl Confirm 01/17/21 17:43 Cyclobenzaprine 10 Mg Tab Administered 01/17/21 17:44 Dose 10 mg .ROUTE .STK-MED ONE Cyclobenzaprine HCl Confirm 01/17/21 17:45 Cyclobenzaprine 10 Mg Tab Administered 01/17/21 17:46 Dose 10 mg .ROUTE .STK-MED ONE Nitroglycerin 0.4 mg 01/17/21 16:07 01/17/21 16:20 Nitroglycerin 0.4 Mg Tab.Sl SL 01/17/21 16:08 0.4 mg ONETIME ONE Administration Potassium Chloride 40 meq 01/17/21 17:09 01/17/21 17:30 Potassium Chloride 20 Meq Tab.Er PO 01/17/21 17:10 40 meq ONETIME ONE Administration - Re-Assessments/Exams Free Text/Narrative Re-Assessment/Exam: vitals WNL EKG - NSR - no acute ischemic changes labs - normal trop and CBC, but mild hypokalemia PO k was given as well as, PO Flexeril and GI cocktail patient reports improvement in chest discomfort - back to his baseline his symptoms seems to be musculoskeletal and Acid reflux - recommend to start taking Flexeril at home and schedule his Botox appointment sooner. Departure - Departure Time of Disposition: 17:58 Disposition: Home, Self-Care 01 Condition: Good Clinical Impression: Obesity (BMI 30.0-34.9), Chest pain of uncertain etiology, Hypokalemia, Chronic neck and back pain Instructions: Chronic Pain, Adult, Chronic Back Pain, [id number] Referrals: Hugo Dumas MD [Primary Care Provider] - Forms: ED Department Discharge Sepsis Event Note (ED) - Focused Exam Vital Signs: Vital Signs Temp Pulse Resp BP BP Pulse Ox 01/17/21 16:48 77 122/52 L 01/17/21 16:30 115/53 L 01/17/21 16:28 36.4 C 81 20 129/58 L 95 01/17/21 16:20 79 139/59 L 98/49 L 01/17/21 16:10 78 110/75 01/17/21 16:00 139/53 L - Problem List & Annotations (1) Atypical chest pain SNOMED Code(s): 146848159 Code(s): R07.89 - OTHER CHEST PAIN Status: Acute Priority: Medium Current Visit: No (2) Back pain SNOMED Code(s): 328212511 Code(s): M54.9 - DORSALGIA, UNSPECIFIED Status: Chronic Priority: Low Current Visit: No Qualifiers: Back pain location: back pain in other location Chronicity: chronic Qualified Code(s): M54.9 - Dorsalgia, unspecified; G89.29 - Other chronic pain (3) Chronic neck and back pain SNOMED Code(s): 61219158 Code(s): M54.2 - CERVICALGIA; M54.9 - DORSALGIA, UNSPECIFIED; G89.29 - OTHER CHRONIC PAIN Status: Acute Priority: Low Current Visit: Yes (4) Hypokalemia SNOMED Code(s): 93341312 Code(s): E87.6 - HYPOKALEMIA Status: Acute Priority: Low Current Visit: Yes - Problem List Review Problem List Initiated/Reviewed/Updated: Yes - Assessment/Plan Plan: - increase potassium in your diet - see educational materials - follow up with your PCP in 3-7 days - start taking muscle relaxants - prescription was sent to the pharmacy - recommend to continue with weight loss - check weight daily - goal is 250 lbs
[2021-01-17 16:48] VITALS: BP 122/52; PULSE 77
[2021-01-17] MEDS ORDERED: Potassium Chloride 20 MEQ Tab.ER PO ONE (17:09)
[2021-01-17] MEDS ORDERED: GI Cocktail Oral Solution 30 ML PO ONE (17:28)
[2021-01-17] MEDS ORDERED: Cyclobenzaprine 10 MG Tab PO ONE (17:28)
[2021-01-17] MEDS ORDERED: Cyclobenzaprine 10 MG Tab ONE ×2 (17:43→17:45)
== END 2021-01-17 18:15 | disposition home or self-care (01) ==
LOC: LB.ED 15:27
DX: G89.29 Other chronic pain (principal); M54.2 Cervicalgia; M54.9 Dorsalgia, unspecified; R07.9 Chest pain, unspecified; E87.6 Hypokalemia; E66.01 Morbid (severe) obesity due to excess calories; I48.91 Unspecified atrial fibrillation; I10 Essential (primary) hypertension; E78.00 Pure hypercholesterolemia, unspecified; K21.9 Gastro-esophageal reflux disease without esophagitis; E11.9 Type 2 diabetes mellitus without complications; Z88.8 Allergy status to other drugs, medicaments and biological substances; Z88.5 Allergy status to narcotic agent; Z79.4 Long term (current) use of insulin; Z79.82 Long term (current) use of aspirin; Z79.02 Long term (current) use of antithrombotics/antiplatelets; Z79.01 Long term (current) use of anticoagulants; Z79.899 Other long term (current) drug therapy; Z91.018 Allergy to other foods
CPT/HCPCS: 36415; 80048; 82947; 84484; 85027; 93005; 99285; A9270; 93010; 99284

== ENCOUNTER 2021-01-22 12:18 | Emergency (ER) | payer MEDICARE ==
[2013-05-05 12:09] VITALS: BP 133/86
== END 2021-01-22 13:00 | disposition left against medical advice (07) ==
LOC: LB.ED 12:18
DX: Z53.21 Procedure and treatment not carried out due to patient leaving prior to being seen by health care provider (principal)
CPT/HCPCS: 82947

== ENCOUNTER 2021-02-01 19:50 | Emergency (ER) | payer MEDICARE ==
[2021-02-01] MEDS ORDERED: Sodium Chloride 0.9% 10 ML Syringe FLUSH PRN (20:39)
[2021-02-01 21:46] VITALS: BP 162/69; PULSE 98
--- NOTE | 2021-02-01 21:46 | EDM.PDOC ---
ED HPI GENERAL MEDICAL PROBLEM - General Chief Complaint: Syncope Stated Complaint: PASSED OUT Time Seen by Provider: 02/01/21 19:50 Source of Information: Reports: Patient, EMS History Limitations: Reports: No Limitations - History of Present Illness INITIAL COMMENTS - FREE TEXT/NARRATIVE: This patient presents to the ED via EMS for evaluation of "passing out." He states he has had 3 episodes of passing out today that he describes as occurring while eating; he was sitting in his recliner eating, started coughing, then "passed out sitting up." He did not have any falls and is able to recount the details of each of the incidents. He states he also started having chest pain at about 12:00 today that he states is under his left arm and and is at a 9/10 in intensity. He did take NTG x 3 at 1930 tonight that he states helped and on arrival he rates his pain at a 9/10. He states he has a headache and attributes that to not being able to get his botox injection. He is also complaining of some nausea but denies abdominal pain, vomiting or diarrhea. Blood sugars have been greater than 400 today. Onset: Today Location: Reports: Chest Improves with: Reports: Medication Worsens with: Reports: None Context: Denies: Trauma Treatments [employer]OR[employer] ATTENDANT: Reports: Nitroglycerin - Related Data Allergies Allergy/AdvReac Type Severity Reaction Status Date / Time caffeine Allergy Dizziness Verified 01/13/21 14:47 coffee (Coffea arabica) Allergy Headache Verified 01/13/21 14:47 nifedipine [From Procardia] AdvReac Mild Constipatio Verified 01/13/21 14:47 n Home Meds: Home Meds Omeprazole 20 mg PO BID 05/26/15 [History] Metoclopramide HCl [Reglan] 10 mg PO QIDACANDBED 03/29/17 [History] Insulin Pump Syringe, 3 mL [Minimed [place]] 1 each MC ASDIRECTED 04/04/17 [History] Isosorbide Mononitrate [Isosorbide Mononitrate ER] 120 mg PO DAILY 09/09/17 [History] Aspirin [Halfprin] 81 mg PO DAILY 12/03/19 [History] Gabapentin [Neurontin] 300 mg PO DAILY 12/03/19 [History] Acetaminophen 650 mg PO ASDIRECTED PRN 12/08/19 [History] Cyclobenzaprine [Flexeril] 10 mg PO TID PRN 12/08/19 [History] Rizatriptan Benzoate [Rizatriptan] 10 mg PO DAILY PRN 04/10/20 [History] Fluticasone/Umeclidin/Vilanter [Trelegy Ellipta 100-62.5-25] 1 each IH DAILY 09/03/20 [Rx] Famotidine [Pepcid] 40 mg PO DAILY 12/19/20 [History] Insulin Aspart [NovoLOG] 45 units SQ TIDAC 12/19/20 [History] Nitroglycerin [Nitrostat] 0.4 mg PO ASDIRECTED 12/19/20 [History] LORazepam [Ativan] 0.5 mg PO TID PRN tablet 12/21/20 [Rx] Meclizine [Antivert] 25 mg PO Q4H PRN tab.chew 12/21/20 [Rx] Melatonin 10 mg PO BEDTIME cap 12/21/20 [Rx] Tamsulosin [Flomax] 0.4 mg PO DAILY cap.er 12/21/20 [Rx] atorvaSTATin [Lipitor] 80 mg PO BEDTIME tablet 12/21/20 [Rx] metOLazone [Zaroxolyn] 2.5 mg PO MoTh tablet 12/21/20 [Rx] traMADol [Ultram] 50 mg PO Q6H PRN 01/02/21 [History] Clopidogrel [Plavix] 75 mg PO DAILY 01/13/21 [History] FLUoxetine [PROzac] 10 mg PO BID 01/13/21 [History] Furosemide [Lasix] 20 mg PO DAILY 01/13/21 [History] Furosemide [Lasix] 60 mg PO ASDIRECTED 01/13/21 [History] Losartan [Cozaar] 25 mg PO DAILY 01/13/21 [History] Metoprolol Succinate [Toprol XL] 25 mg PO DAILY 01/13/21 [History] Warfarin [Coumadin] 1 mg PO MOTUWETHFRSA@1800 01/13/21 [History] Warfarin [Coumadin] 2 mg PO MARTINEZ@1800 01/13/21 [History] Cyclobenzaprine [Flexeril] 20 mg PO DAILY #20 tab 01/17/21 [Rx] Past Medical History - Past Health History Medical/Surgical History: Denies Medical/Surgical History HEENT History: Reports: Cataract, Impaired Vision, Other (See Below) Other HEENT History: Lu's esophagus Cardiovascular History: Reports: Afib, Angina, Automatic Implantable Cardioverter Defibrillators, High Cholesterol, Hypertension, Pacemaker, SOB on Exertion Other Cardiovascular History: Ablation in July,, angiogram 07/25/2017 Respiratory History: Reports: COPD, PE, Pneumonia, Recurrent, Sleep Apnea, SOB Other Respiratory History: wears a cpap at night Gastrointestinal History: Reports: Bowel Obstruction, Chronic Constipation, GERD, Other (See Below) Other Gastrointestinal History: duodenal ulcer Genitourinary History: Reports: Renal Calculus, Other (See Below) Other Genitourinary History: prostate stent placed 10/01/2016 Musculoskeletal History: Reports: Back Pain, Chronic Other Musculoskeletal History: Neck pain causing migraines Neurological History: Reports: Migraines Other Neuro History: Patient had vertebrae in neck fused. Resolved some or most of headaches. Psychiatric History: Reports: Depression, Emotional Problems Endocrine/Metabolic History: Reports: Diabetes, Type II, Obesity/BMI 30+ Other Endocrine/Metabolic History: pt has insulin pump Hematologic History: Reports: B12 Deficiency, Blood Transfusion(s) Oncologic (Cancer) History: Reports: None Dermatologic History: Reports: Other (See Below) Other Dermatologic History: Had pre-cancer lesion removed to R arm. Has lesion to L wrist. - Infectious Disease History Infectious Disease History: Reports: Chicken Pox, Measles, Rubella - Past Surgical History Head Surgeries/Procedures: Reports: None HEENT Surgical History: Reports: Tonsillectomy Other HEENT Surgeries/Procedures: C3 and C4 fusion- 2014 Cardiovascular Surgical History: Reports: Cardiac Ablation, Pacer Other Cardiovascular Surgeries/Procedures: Ablation in 2014 Respiratory Surgical History: Reports: None GI Surgical History: Reports: Cholecystectomy, Colonoscopy, Hernia, Inguinal, Other (See Below) Other GI Surgeries/Procedures: laproscopic sx for infestigation of constipation issues. Lap Adalgisa December 2020 Male Surgical History: Reports: Kidney Stone Extraction, Lithotripsy ([facility]) Endocrine Surgical History: Reports: None Neurological Surgical History: Reports: C-Spine, Spinal Fusion Other Neurological Surgeries/Procedures: Woke this Am with CARDONA - currently rates at 9.5/10 Musculoskeletal Surgical History: Reports: Knee Replacement Other Musculoskeletal Surgeries/Procedures:: C3-4 vertebral fusion Social & Family History - Family History Family Medical History: No Pertinent Family History HEENT: Reports: Cataract Cardiac: Reports: ID Respiratory: Reports: COPD GI: Reports: None : Reports: None Endocrine/Metabolic: Reports: Diabetes, type II Oncologic: Reports: Brain, Colon, Lung - Caffeine Use Caffeine Use: Reports: Soda Other Caffeine Use: diet coke - 3-4 cans /day - Living Situation & Occupation Living situation: Reports: Occupation: Unemployed ED ROS GENERAL - Review of Systems Review Of Systems: See Below Constitutional: Denies: Fever, Weakness, Decreased Appetite HEENT: Reports: No Symptoms Respiratory: Reports: Cough. Denies: Shortness of Breath Cardiovascular: Reports: Chest Pain GI/Abdominal: Reports: Nausea. Denies: Abdominal Pain, Diarrhea, Decreased Appetite, Vomiting Skin: Reports: No Symptoms Neurological: Reports: Headache. Denies: Confusion, Dizziness - Physical Exam Exam: See Below Exam Limited By: No Limitations General Appearance: Alert, No Apparent Distress, Obese Eye Exam: Bilateral Eye: Normal Inspection, PERRL Ears: Normal External Exam Nose: Normal Inspection Throat/Mouth: Normal Inspection Head Exam: Atraumatic, Normocephalic Neck: Normal Inspection, Non-Tender, Full Range of Motion Respiratory/Chest: No Respiratory Distress, Lungs Clear, Normal Breath Sounds, No Accessory Muscle Use, Chest Non-Tender Cardiovascular: Regular Rate, Rhythm GI/Abdominal: Soft, Non-Tender Neuro Exam (Abbreviated): Alert, Oriented Course - Orders/Labs/Meds Orders: Active Orders 24 hr Category Date Time Status Sodium Chloride 0.9% [Saline Flush] Med 02/01/21 20:39 Active 10 ml FLUSH ASDIRECTED PRN Saline Lock Insert [OM.PC] Stat Oth 02/01/21 20:39 Ordered Medication Orders Sodium Chloride (Sodium Chloride 0.9% 10 Ml Syringe) 10 ml FLUSH ASDIRECTED PRN PRN Reason: Keep Vein Open Labs: Laboratory Tests 02/01/21 02/01/21 Range/Units 21:00 21:00 WBC 11.5 H D (4.0-11.0) K/uL RBC 4.34 L (4.50-6.50) M/uL Hgb 12.5 L (13.0-18.0) g/dL Hct 37.3 L (40.0-54.0) % MCV 86 (76-96) fL MCH 28.8 (27.0-32.0) pg MCHC 33.5 (31.0-35.0) g/dL RDW 15.4 (11.0-16.0) % Plt Count 216 D (150-400) K/uL MPV 11.6 H (6.0-10.0) fL Neut % (Auto) 58.3 (45.0-70.0) % Lymph % (Auto) 31.1 (20.0-40.0) % [place] % (Auto) 9.5 (3.0-10.0) % Eos % (Auto) 1.0 (1.0-5.0) % Baso % (Auto) 0.1 (0.0-0.5) % Neut # (Auto) 6.73 (2.00-7.50) K/uL Lymph # (Auto) 3.59 (1.50-4.00) K/uL [place] # (Auto) 1.09 H (0.20-0.80) K/uL Eos # (Auto) 0.11 (0.04-0.40) K/uL Baso # (Auto) 0.01 L (0.02-0.10) K/uL Sodium 131 L (136-145) mmol/L Potassium 3.1 L (3.5-5.1) mmol/L Chloride 99 (98-107) mmol/L Carbon Dioxide 26.8 (21.0-32.0) mmol/L Anion Gap 8.3 (5.0-15.0) mmol/L BUN 31 H (8-26) mg/dL Creatinine 1.76 H (0.70-1.30) mg/dL Est Cr Clr Drug Dosing TNP Estimated GFR (MDRD) 38 L (>60) MLS/MIN BUN/Creatinine Ratio 17.6 (6-25) Glucose 408 H* D (74-100) mg/dL Calcium 8.6 (8.5-10.1) mg/dL Troponin I < 0.017 (0.000-0.060) ng/mL B-Natriuretic Peptide 101 D (0-125) pg/mL Meds: Medications Generic Name Dose Route Start Last Admin Trade Name Freq PRN Reason Stop Dose Admin Sodium Chloride 10 ml 02/01/21 20:39 Sodium Chloride 0.9% 10 Ml Syringe FLUSH ASDIRECTED PRN Keep Vein Open Discontinued Medications Generic Name Dose Route Start Last Admin Trade Name Awilda PRN Reason Stop Dose Admin Ketorolac Tromethamine Confirm 02/01/21 21:49 Ketorolac 60 Mg/2 Ml Sdv Administered 02/01/21 21:50 Dose 60 mg .ROUTE .[facility] ONE - Re-Assessments/Exams Free Text/Narrative Re-Assessment/Exam: 02/01/21 21:50 This patient presents with chest pain and near syncopal episodes. The work up for both of these concerns in the ED are thus far negative. The differential diagnosis of both is broad and includes life threatening etiologies such as acute coronary syndrome, myocardial infarction, pulmonary embolism, acute aortic dissection, cardiac arrythmyias, seizure, TIA, stroke, and vasovagel episodes amongst others. Other causes may include pneumonia, pneumothorax, chest wall source, pericarditis, pleurisy, esophageal spasm, etc. No serious etiology for the chest pain were detected today during this visit. Workup included labs and EKG. His physical examination is quite reassuring and his ability to recount the details of his episodes today suggest he did not lose consciousness. Close follow up with primary care is indicated should the pain or the episodes continue, as further work up may be performed; this was made clear to the patient, who understands. Departure - Departure Time of Disposition: 22:00 Disposition: Home, Self-Care 01 Condition: Fair Clinical Impression: Near syncope Chest pain Qualifiers: Chest pain type: unspecified Qualified Code(s): R07.9 - Chest pain, unspecified - Discharge Information *PRESCRIPTION DRUG MONITORING PROGRAM REVIEWED*: Not Applicable *COPY OF PRESCRIPTION DRUG MONITORING REPORT IN PATIENT KAVON: Not Applicable Referrals: PCP,Unknown [Primary Care Provider] - - My Orders Last 24 Hours: My Active Orders 02/01/21 20:39 Sodium Chloride 0.9% [Saline Flush] 10 ml FLUSH ASDIRECTED PRN Saline Lock Insert [OM.PC] Stat - Assessment/Plan Last 24 Hours: My Active Orders 02/01/21 20:39 Sodium Chloride 0.9% [Saline Flush] 10 ml FLUSH ASDIRECTED PRN Saline Lock Insert [OM.PC] Stat
[2021-02-01] MEDS ORDERED: Ketorolac 60 MG/2 ML SDV IM ONE (21:48)
[2021-02-01] MEDS ORDERED: Ketorolac 60 MG/2 ML SDV ONE (21:49)
== END 2021-02-01 21:57 | disposition home or self-care (01) ==
LOC: LB.ED 19:50
DX: R07.9 Chest pain, unspecified (principal); R55 Syncope and collapse; I48.91 Unspecified atrial fibrillation; J44.9 Chronic obstructive pulmonary disease, unspecified; E78.00 Pure hypercholesterolemia, unspecified; I10 Essential (primary) hypertension; E11.9 Type 2 diabetes mellitus without complications; E66.9 Obesity, unspecified; Z68.30 Body mass index [BMI] 30.0-30.9, adult; Z95.1 Presence of aortocoronary bypass graft; Z79.01 Long term (current) use of anticoagulants; Z79.4 Long term (current) use of insulin; Z79.82 Long term (current) use of aspirin; Z79.899 Other long term (current) drug therapy; Z91.018 Allergy to other foods; Z88.8 Allergy status to other drugs, medicaments and biological substances
CPT/HCPCS: 36415; 80048; 83880; 84484; 85025; 93005; 96372; 99285; A0425; A0429; J1885; 99283

== ENCOUNTER 2021-03-31 11:34 | Emergency (ER) | payer MEDICARE ==
[2021-03-31] MEDS ORDERED: Morphine 10 MG/ML Syringe IM ONE (12:31)
--- NOTE | 2021-03-31 12:50 | EDM.PDOC ---
ED HPI GENERAL MEDICAL PROBLEM - General Chief Complaint: Abdominal Pain Stated Complaint: PANCREATITIS Time Seen by Provider: 03/31/21 12:00 Source of Information: Reports: Patient History Limitations: Reports: No Limitations - History of Present Illness INITIAL COMMENTS - FREE TEXT/NARRATIVE: 75-year-old male presents to the ED complaining of abdominal pain. History of same was recently admitted to the [facility] ([place], [place]) for pancreatitis for 6 days. Patient has gallbladder removed in December. 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 He describes the pain is constant in the upper quadrants nothing makes the pain better or worse except Tylenol and oxycodone 5 mg every 8 hours. Patient has been feeling nauseous. Patient denies chest pain, shortness of breath, syncope/near syncope, vomiting, diarrhea or constipation, blood in the stool black tarry stool, blurred vision, or trauma. 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, Other (see below) (Narcotics) abdomen Pain Score (Numeric/FACES): 8 - Related Data Allergies Allergy/AdvReac Type Severity Reaction Status Date / Time caffeine Allergy Dizziness Verified 03/31/21 13:25 coffee (Coffea arabica) Allergy Headache Verified 03/31/21 13:25 nifedipine [From Procardia] AdvReac Mild Constipatio Verified 03/31/21 13:25 n Home Meds: Home Meds Omeprazole 20 mg PO BID 05/26/15 [History] Metoclopramide HCl [Reglan] 10 mg PO QIDACANDBED 03/29/17 [History] Insulin Pump Syringe, 3 mL [Minimed [place]] 1 each MC ASDIRECTED 04/04/17 [History] Isosorbide Mononitrate [Isosorbide Mononitrate ER] 120 mg PO DAILY 09/09/17 [History] Aspirin [Halfprin] 81 mg PO DAILY 12/03/19 [History] Gabapentin [Neurontin] 300 mg PO DAILY 12/03/19 [History] Acetaminophen 650 mg PO ASDIRECTED PRN 12/08/19 [History] Cyclobenzaprine [Flexeril] 10 mg PO TID PRN 12/08/19 [History] Rizatriptan Benzoate [Rizatriptan] 10 mg PO DAILY PRN 04/10/20 [History] Fluticasone/Umeclidin/Vilanter [Trelegy Ellipta 100-62.5-25] 1 each IH DAILY 09/03/20 [Rx] Famotidine [Pepcid] 40 mg PO DAILY 12/19/20 [History] Insulin Aspart [NovoLOG] 45 units SQ TIDAC 12/19/20 [History] Nitroglycerin [Nitrostat] 0.4 mg PO ASDIRECTED 12/19/20 [History] LORazepam [Ativan] 0.5 mg PO TID PRN tablet 12/21/20 [Rx] Meclizine [Antivert] 25 mg PO Q4H PRN tab.chew 12/21/20 [Rx] Melatonin 10 mg PO BEDTIME cap 12/21/20 [Rx] Tamsulosin [Flomax] 0.4 mg PO DAILY cap.er 12/21/20 [Rx] atorvaSTATin [Lipitor] 80 mg PO BEDTIME tablet 12/21/20 [Rx] metOLazone [Zaroxolyn] 2.5 mg PO MoTh tablet 12/21/20 [Rx] traMADol [Ultram] 50 mg PO Q6H PRN 01/02/21 [History] Clopidogrel [Plavix] 75 mg PO DAILY 01/13/21 [History] FLUoxetine [PROzac] 10 mg PO BID 01/13/21 [History] Furosemide [Lasix] 20 mg PO DAILY 01/13/21 [History] Furosemide [Lasix] 60 mg PO ASDIRECTED 01/13/21 [History] Losartan [Cozaar] 25 mg PO DAILY 01/13/21 [History] Metoprolol Succinate [Toprol XL] 25 mg PO DAILY 01/13/21 [History] Warfarin [Coumadin] 1 mg PO MOTUWETHFRSA@1800 01/13/21 [History] Warfarin [Coumadin] 2 mg PO MARTINEZ@1800 01/13/21 [History] Cyclobenzaprine [Flexeril] 20 mg PO DAILY #20 tab 01/17/21 [Rx] oxyCODONE 5 mg PO Q8HR PRN 3 Days #9 tab 03/31/21 [Rx] Past Medical History - Past Health History Medical/Surgical History: Denies Medical/Surgical History HEENT History: Reports: Cataract, Impaired Vision, Other (See Below) Other HEENT History: Lu's esophagus Cardiovascular History: Reports: Afib, Angina, Automatic Implantable Cardioverter Defibrillators, High Cholesterol, Hypertension, Pacemaker, SOB on Exertion Other Cardiovascular History: Ablation in July,, angiogram 07/25/2017 Respiratory History: Reports: COPD, PE, Pneumonia, Recurrent, Sleep Apnea, SOB Other Respiratory History: wears a cpap at night Gastrointestinal History: Reports: Bowel Obstruction, Chronic Constipation, GERD, Other (See Below) Other Gastrointestinal History: duodenal ulcer Genitourinary History: Reports: Renal Calculus, Other (See Below) Other Genitourinary History: prostate stent placed 10/01/2016 Musculoskeletal History: Reports: Back Pain, Chronic Other Musculoskeletal History: Neck pain causing migraines Neurological History: Reports: Migraines Other Neuro History: Patient had vertebrae in neck fused. Resolved some or most of headaches. Psychiatric History: Reports: Depression, Emotional Problems Endocrine/Metabolic History: Reports: Diabetes, Type II, Obesity/BMI 30+ Other Endocrine/Metabolic History: pt has insulin pump Hematologic History: Reports: B12 Deficiency, Blood Transfusion(s) Oncologic (Cancer) History: Reports: None Dermatologic History: Reports: Other (See Below) Other Dermatologic History: Had pre-cancer lesion removed to R arm. Has lesion to L wrist. - Infectious Disease History Infectious Disease History: Reports: Chicken Pox, Measles, Rubella - Past Surgical History Head Surgeries/Procedures: Reports: None HEENT Surgical History: Reports: Tonsillectomy Other HEENT Surgeries/Procedures: C3 and C4 fusion- 2014 Cardiovascular Surgical History: Reports: Cardiac Ablation, Pacer Other Cardiovascular Surgeries/Procedures: Ablation in 2014 Respiratory Surgical History: Reports: None GI Surgical History: Reports: Cholecystectomy, Colonoscopy, Hernia, Inguinal, Other (See Below) Other GI Surgeries/Procedures: laproscopic sx for infestigation of constipation issues. Lap Adalgisa December 2020 Male Surgical History: Reports: Kidney Stone Extraction, Lithotripsy ([facility]) Endocrine Surgical History: Reports: None Neurological Surgical History: Reports: C-Spine, Spinal Fusion Other Neurological Surgeries/Procedures: Woke this Am with CARDONA - currently rates at 9.5/10 Musculoskeletal Surgical History: Reports: Knee Replacement Other Musculoskeletal Surgeries/Procedures:: C3-4 vertebral fusion Social & Family History - Family History Family Medical History: No Pertinent Family History HEENT: Reports: Cataract Cardiac: Reports: PR Respiratory: Reports: COPD GI: Reports: None : Reports: None Endocrine/Metabolic: Reports: Diabetes, type II Oncologic: Reports: Brain, Colon, Lung - Caffeine Use Caffeine Use: Reports: Soda Other Caffeine Use: diet coke - 3-4 cans /day - Living Situation & Occupation Living situation: Reports: Occupation: Unemployed ED ROS GENERAL - Review of Systems Review Of Systems: See Below Constitutional: Denies: Fever, Chills, Weakness, Fatigue HEENT: Denies: Vertigo Respiratory: Reports: No Symptoms Cardiovascular: Reports: No Symptoms Endocrine: Reports: High Glucose GI/Abdominal: Reports: Abdominal Pain, Nausea. Denies: Black Stool, Bloody Stool, Constipation, Diarrhea, Decreased Appetite, Hematochezia, Melena, Vomiting : Reports: No Symptoms Musculoskeletal: Reports: No Symptoms Skin: Reports: No Symptoms Neurological: Reports: No Symptoms Psychiatric: Reports: No Symptoms Hematologic/Lymphatic: Reports: No Symptoms Immunologic: Reports: No Symptoms ED EXAM, GI/ABD - Physical Exam Exam: See Below Text/Narrative:: 75-year-old male presents the ED complaining of abdominal pain, patient appears to be in no apparent distress. He alert and oriented 3/3, GCS 4 5 6. Patient speaking in full sentences. No obvious trauma, patient's body habitus morbidly obese. Exam Limited By: No Limitations General Appearance: Alert, WD/WN, No Apparent Distress Eyes: Bilateral: Normal Appearance, EOMI Ears: Hearing Grossly Normal Nose: Normal Inspection, Normal Mucosa, No Blood Throat/Mouth: Normal Inspection, Normal Lips, Normal Teeth, Normal Gums, Normal Oropharynx, Normal Voice, No Airway Compromise Head: Atraumatic, Normocephalic Neck: Normal Inspection, Supple, Non-Tender, Full Range of Motion. No: Lymphadenopathy (R), Lymphadenopathy (L) Respiratory/Chest: No Respiratory Distress, Lungs Clear, Normal Breath Sounds, No Accessory Muscle Use, Chest Non-Tender Cardiovascular: Normal Peripheral Pulses, Regular Rate, Rhythm, No Edema, No Gallop, No JVD, No Murmur, No Rub GI/Abdominal Exam: Normal Bowel Sounds, Guarding (Guarding is preventing palpation of underlying organs.), Tender (Tenderness noted in right lower quadrant left lower quadrant right upper quadrant.), Other (Negative José sign machine sorter's sign, multiple small silver dollar sized yellow bruise ren from Lovenox administration during his hospital stay) Back Exam: CVA Tenderness (L) Extremities: Pedal Edema (+1 bilateral). No: Joint Swelling #1 Interpretation EKG Date: 03/31/21 (Normal sinus rhythm, without ectopy, right bundle branch block, no ST elevation or depression, inverted T waves in V1 V2 V3, same as previous EKG.) Course - Vital Signs Last Recorded V/S: Last Vital Signs Temp 97.1 F 03/31/21 13:22 Pulse 70 03/31/21 13:22 Resp 18 03/31/21 13:22 BP 112/80 03/31/21 13:22 Pulse Ox 97 03/31/21 13:22 - Orders/Labs/Meds Labs: Laboratory Tests 03/31/21 03/31/21 03/31/21 Range/Units 12:24 12:25 12:26 WBC (4.0-11.0) K/uL RBC (4.50-6.50) M/uL Hgb (13.0-18.0) g/dL Hct (40.0-54.0) % MCV (76-96) fL MCH (27.0-32.0) pg MCHC (31.0-35.0) g/dL RDW (11.0-16.0) % Plt Count (150-400) K/uL MPV (6.0-10.0) fL Neut % (Auto) (45.0-70.0) % Lymph % (Auto) (20.0-40.0) % [place] % (Auto) (3.0-10.0) % Eos % (Auto) (1.0-5.0) % Baso % (Auto) (0.0-0.5) % Neut # (Auto) (2.00-7.50) K/uL Lymph # (Auto) (1.50-4.00) K/uL [place] # (Auto) (0.20-0.80) K/uL Eos # (Auto) (0.04-0.40) K/uL Baso # (Auto) (0.02-0.10) K/uL Sodium 134 L (136-145) mmol/L Potassium 3.7 (3.5-5.1) mmol/L Chloride 100 (98-107) mmol/L Carbon Dioxide 28.8 (21.0-32.0) mmol/L Anion Gap 8.9 (5.0-15.0) mmol/L BUN 25 (8-26) mg/dL Creatinine 1.54 H (0.70-1.30) mg/dL Est Cr Clr Drug Dosing 41.33 mL/min Estimated GFR (MDRD) 45 L (>60) MLS/MIN BUN/Creatinine Ratio 16.2 (6-25) Glucose 343 H (74-100) mg/dL Calcium 8.7 (8.5-10.1) mg/dL Magnesium 1.9 (1.8-2.4) mg/dL Total Bilirubin 0.5 (0.0-1.0) mg/dL AST 34 (15-37) U/L ALT 51 (12-78) U/L Alkaline Phosphatase 167 H (46-116) U/L Troponin I < 0.017 (0.000-0.060) ng/mL C-Reactive Protein 10.7 H (0.0-3.0) mg/L Total Protein 7.3 (6.4-8.2) g/dL Albumin 3.2 L (3.4-5.0) g/dL Globulin 4.1 (2.2-4.2) g/dL Albumin/Globulin Ratio 0.8 (0.8-2.0) Triglycerides 261 H D (30-150) mg/dL Cholesterol 130 (120-200) mg/dL LDL Cholesterol, Calc 52 (0-130) mg/dL HDL Cholesterol 26 L (40-60) mg/dL Cholesterol/HDL Ratio 5.0 (0.0-5.0) Amylase 37 (25-115) U/L Lipase 179 (73-393) U/L Urine Color Urine Appearance (CLEAR) Urine pH (5.0-8.0) Ur Specific [place] (1.003-1.030) Urine Protein (NEGATIVE) mg/dL Urine Glucose (UA) (NEGATIVE) mg/dL Urine Ketones (NEGATIVE) mg/dL Urine Occult Blood (NEGATIVE) Urine Nitrite (NEGATIVE) Urine Bilirubin (NEGATIVE) Urine Urobilinogen (0.2-1.0) E.U./dL Ur Leukocyte Esterase (NEGATIVE) 03/31/21 03/31/21 Range/Units 12:40 14:50 WBC 8.9 (4.0-11.0) K/uL RBC 4.35 L (4.50-6.50) M/uL Hgb 12.4 L (13.0-18.0) g/dL Hct 37.3 L (40.0-54.0) % MCV 86 (76-96) fL MCH 28.5 (27.0-32.0) pg MCHC 33.2 (31.0-35.0) g/dL RDW 14.5 (11.0-16.0) % Plt Count 243 (150-400) K/uL MPV 10.8 H (6.0-10.0) fL Neut % (Auto) 59.1 (45.0-70.0) % Lymph % (Auto) 30.1 (20.0-40.0) % [place] % (Auto) 8.5 (3.0-10.0) % Eos % (Auto) 1.7 (1.0-5.0) % Baso % (Auto) 0.6 H (0.0-0.5) % Neut # (Auto) 5.25 (2.00-7.50) K/uL Lymph # (Auto) 2.67 (1.50-4.00) K/uL [place] # (Auto) 0.75 (0.20-0.80) K/uL Eos # (Auto) 0.15 (0.04-0.40) K/uL Baso # (Auto) 0.05 (0.02-0.10) K/uL Sodium (136-145) mmol/L Potassium (3.5-5.1) mmol/L Chloride (98-107) mmol/L Carbon Dioxide (21.0-32.0) mmol/L Anion Gap (5.0-15.0) mmol/L BUN (8-26) mg/dL Creatinine (0.70-1.30) mg/dL Est Cr Clr Drug Dosing mL/min Estimated GFR (MDRD) (>60) MLS/MIN BUN/Creatinine Ratio (6-25) Glucose (74-100) mg/dL Calcium (8.5-10.1) mg/dL Magnesium (1.8-2.4) mg/dL Total Bilirubin (0.0-1.0) mg/dL AST (15-37) U/L ALT (12-78) U/L Alkaline Phosphatase (46-116) U/L Troponin I (0.000-0.060) ng/mL C-Reactive Protein (0.0-3.0) mg/L Total Protein (6.4-8.2) g/dL Albumin (3.4-5.0) g/dL Globulin (2.2-4.2) g/dL Albumin/Globulin Ratio (0.8-2.0) Triglycerides (30-150) mg/dL Cholesterol (120-200) mg/dL LDL Cholesterol, Calc (0-130) mg/dL HDL Cholesterol (40-60) mg/dL Cholesterol/HDL Ratio (0.0-5.0) Amylase (25-115) U/L Lipase (73-393) U/L Urine Color Yellow Urine Appearance Clear (CLEAR) Urine pH 7.0 (5.0-8.0) Ur Specific [place] 1.020 (1.003-1.030) Urine Protein Negative (NEGATIVE) mg/dL Urine Glucose (UA) 500 H (NEGATIVE) mg/dL Urine Ketones Negative (NEGATIVE) mg/dL Urine Occult Blood Negative (NEGATIVE) Urine Nitrite Negative (NEGATIVE) Urine Bilirubin Negative (NEGATIVE) Urine Urobilinogen 0.2 (0.2-1.0) E.U./dL Ur Leukocyte Esterase Negative (NEGATIVE) Meds: Medications Discontinued Medications Generic Name Dose Route Start Last Admin Trade Name Freq PRN Reason Stop Dose Admin Al Hydroxide/Mg Hydroxide 30 ml 03/31/21 15:18 03/31/21 15:37 Gi Cocktail Oral Solution 30 Ml PO 03/31/21 15:19 30 ml ONETIME ONE Administration Morphine Sulfate 5 mg 03/31/21 12:31 03/31/21 13:09 Morphine 10 Mg/Ml Syringe IM 03/31/21 12:32 5 mg ONETIME ONE Administration Morphine Sulfate Confirm 03/31/21 13:15 03/31/21 13:09 Morphine 10 Mg/Ml Sdv Administered 03/31/21 13:16 Not Given Dose 10 mg .ROUTE .STK-MED ONE Departure - Departure Time of Disposition: 16:30 Disposition: Home, Self-Care 01 Condition: Good Clinical Impression: Abdominal pain Qualifiers: Abdominal location: generalized Qualified Code(s): R10.84 - Generalized abdominal pain - Discharge Information *PRESCRIPTION DRUG MONITORING PROGRAM REVIEWED*: No *COPY OF PRESCRIPTION DRUG MONITORING REPORT IN PATIENT KAVON: No Instructions: Abdominal Pain, Adult, [id number] Referrals: Hugo Dumas MD [Primary Care Provider] - Forms: ED Department Discharge Sepsis Event Note (ED) - Focused Exam Vital Signs: Vital Signs Temp Pulse Resp BP Pulse Ox 03/31/21 13:22 97.1 F 70 18 112/80 97 - Assessment/Plan Assessment:: Patient being evaluated for abdominal pain: 75-year-old male who presents with abdominal pain as detailed above. A broad differential diagnosis was considered including appendicitis, biliary disease, pancreatitis, diverticular disease, bowel obstruction, volvulus, intussusception, gastritis and peptic ulcer disease, gastrointestinal infection, inflammatory bowel disease, peritonitis, kidney stones, UTI. Mesenteric lymphadenopathy, and IBS. The work-up in the ED at this point. No elevated white blood cell count appendicitis, gastrointestinal infection, patient stooling regularly decrease likelihood of a bowel obstruction, lipase amylase normal decrease chances of a pancreatitis. Bilirubin normal decrease chances of a biliary disease issue. Patient is urinating without difficulty, since prior CT from [place] shows 1 stone nonobstructing, no evidence of UTI on his UA. No evidence of diverticulitis on CT from hospital stay making it less likely. Symptomology not consistent with volvulus or intussusception. No sign of infection peritonitis. Based on red blood cell/[place] count being mildly decreased and patient's abdominal discomfort highly likely patient is experiencing a gastric ulcer or duodenal ulcer. But no definitive etiology for the patient's pain is found at this point and my suspicion of an intra-abdominal catastrophe or other worrisome etiology is low. Images studies were not done today due to the recency of his CT in [place]. Which gave the following impressions: 1 inflammatory changes of the pancreas consistent with acute pancreatitis (now resolved) 2 wall thickening and narrowing involving the descending portion of the duodenum adjacent to the pancreas likely secondarily involved with moderate gastric distention with fluid. Consider NG tube placement for decompression. 3. Questionable hypodense mass medial aspect of the right hepatic lobe along the gallbladder fossa at the site of a prior cholecystectomy recommend nonemergent MRI for further assessment. 4. Several bilateral pulmonary nodules see guidelines for below for follow-up. Cardiac ED etiologies are unlikely as supported by no changes to his EKG, negative troponin. There is no indication for admission at this time for serial exams or further work-up. Patient is hemodynamically stable in the ED. Plan is home with a follow-up with primary care provider on Saturday, or return to the ED if abdominal pain does not improve, gets worse patient develops a fever greater than 102, other new symptoms develop. Abdominal pain instructions given to patient questions were answered. Lab abdomen normalities noted today: Red blood cell count 4.35 Hemoglobin 12.4 Hematocrit 37.3 Glucose 343 alk phosphatase 167 was previously 197 CRP 10.7 Triglycerides 261 Urine glucose 500 C-reactive protein slightly lowered RBC hemoglobin [place] and elevated alk phos all point to a gastrointestinal issue most likely ulcer. Consulted with primary care provider, who will see patient on Saturday for follow- up of abdominal pain, he also agrees that imaging is not required at this time, also concerned regarding opiate use, believes that abdominal pain is more of a chronic pain issue. Plan: ABC, history, exam, 5 mg of morphine IM for pain, labs, review of hospital stay documentation, GI cocktail, consult with primary care provider, treatment plan explained to patient who understands and agrees, follow-up with primary care provider on Saturday, tow picker [id number] medications at pharmacy including omeprazole 40 mg once daily and oxycodone 5 mg 1 every 8 hours as needed for pain, patient discharged in stable condition.
[2021-03-31] MEDS ORDERED: Morphine 10 MG/ML SDV ONE (13:15)
[2021-03-31 13:24] VITALS: BP 112/80; PULSE 70
[2021-03-31] MEDS ORDERED: GI Cocktail Oral Solution 30 ML PO ONE (15:18)
== END 2021-03-31 16:29 | disposition home or self-care (01) ==
LOC: LB.ED 11:34
DX: R10.84 Generalized abdominal pain (principal); R10.31 Right lower quadrant pain; R10.32 Left lower quadrant pain; R10.11 Right upper quadrant pain; I45.10 Unspecified right bundle-branch block; I48.91 Unspecified atrial fibrillation; E78.00 Pure hypercholesterolemia, unspecified; I10 Essential (primary) hypertension; J44.9 Chronic obstructive pulmonary disease, unspecified; K21.9 Gastro-esophageal reflux disease without esophagitis; E11.9 Type 2 diabetes mellitus without complications; E66.9 Obesity, unspecified; Z68.42 Body mass index [BMI] 45.0-49.9, adult; Z88.8 Allergy status to other drugs, medicaments and biological substances; Z91.018 Allergy to other foods; Z79.4 Long term (current) use of insulin; Z79.82 Long term (current) use of aspirin; Z79.02 Long term (current) use of antithrombotics/antiplatelets; Z79.899 Other long term (current) drug therapy
CPT/HCPCS: 36415; 80053; 80061; 81003; 82150; 83690; 83735; 84484; 85025; 86140; 93005; 96372; 99284; A9270; J2270

== ENCOUNTER 2021-05-12 12:50 | Emergency (ER) | payer MEDICARE ==
[2021-05-12] MEDS ORDERED: Insulin Regular, Human 100 Units/ML 3 ML Vial SUBCUT ONE (13:23)
--- NOTE | 2021-05-12 13:35 | EDM.PDOC ---
ED HPI GENERAL MEDICAL PROBLEM - General Chief Complaint: Headache Stated Complaint: HEADCAHE Time Seen by Provider: 05/12/21 13:15 Source of Information: Reports: Patient, RN Notes Reviewed History Limitations: Reports: No Limitations - History of Present Illness INITIAL COMMENTS - FREE TEXT/NARRATIVE: This patient presents to the emergency department for evaluation of a headache. He states that he woke up with a headache this morning. He uses a insulin pump and does measure his glucose at home. His glucose this morning was greater than 400. He states he took some Tylenol which did not seem to help a lot and then came in. On arrival to the ER his serum glucose is 511. He is currently giving himself a bolus of 25 units of NovoLog and he has a basal rate of 1.2 units. He states that he was seen by his summer intern approximately 6 weeks ago who decreased his basal rate from 6 units/h to 1.2 units/h. He does have additional NovoLog at home and does use that in a subcutaneous injection. - Related Data Allergies Allergy/AdvReac Type Severity Reaction Status Date / Time caffeine Allergy Dizziness Verified 05/12/21 13:11 coffee (Coffea arabica) Allergy Headache Verified 05/12/21 13:11 nifedipine [From Procardia] AdvReac Mild Constipatio Verified 05/12/21 13:11 n Home Meds: Home Meds Omeprazole 20 mg PO BID 05/26/15 [History] Metoclopramide HCl [Reglan] 10 mg PO QIDACANDBED 03/29/17 [History] Insulin Pump Syringe, 3 mL [Minimed [place]] 1 each MC ASDIRECTED 04/04/17 [History] Isosorbide Mononitrate [Isosorbide Mononitrate ER] 120 mg PO DAILY 09/09/17 [History] Aspirin [Halfprin] 81 mg PO DAILY 12/03/19 [History] Gabapentin [Neurontin] 300 mg PO DAILY 12/03/19 [History] Acetaminophen 650 mg PO ASDIRECTED PRN 12/08/19 [History] Cyclobenzaprine [Flexeril] 10 mg PO TID PRN 12/08/19 [History] Rizatriptan Benzoate [Rizatriptan] 10 mg PO DAILY PRN 04/10/20 [History] Fluticasone/Umeclidin/Vilanter [Trelegy Ellipta 100-62.5-25] 1 each IH DAILY 09/03/20 [Rx] Famotidine [Pepcid] 40 mg PO DAILY 12/19/20 [History] Insulin Aspart [NovoLOG] 45 units SQ TIDAC 12/19/20 [History] Nitroglycerin [Nitrostat] 0.4 mg PO ASDIRECTED 12/19/20 [History] LORazepam [Ativan] 0.5 mg PO TID PRN tablet 12/21/20 [Rx] Meclizine [Antivert] 25 mg PO Q4H PRN tab.chew 12/21/20 [Rx] Melatonin 10 mg PO BEDTIME cap 12/21/20 [Rx] Tamsulosin [Flomax] 0.4 mg PO DAILY cap.er 12/21/20 [Rx] atorvaSTATin [Lipitor] 80 mg PO BEDTIME tablet 12/21/20 [Rx] metOLazone [Zaroxolyn] 2.5 mg PO MoTh tablet 12/21/20 [Rx] traMADol [Ultram] 50 mg PO Q6H PRN 01/02/21 [History] Clopidogrel [Plavix] 75 mg PO DAILY 01/13/21 [History] FLUoxetine [PROzac] 20 mg PO BID 01/13/21 [History] Furosemide [Lasix] 20 mg PO DAILY 01/13/21 [History] Furosemide [Lasix] 60 mg PO ASDIRECTED 01/13/21 [History] Losartan [Cozaar] 100 mg PO DAILY 01/13/21 [History] Metoprolol Succinate [Toprol XL] 50 mg PO DAILY 01/13/21 [History] oxyCODONE 5 mg PO Q8HR PRN 3 Days #9 tab 03/31/21 [Rx] Warfarin Sodium [Jantoven] 1 mg PO DAILY 05/12/21 [History] Past Medical History - Past Health History Medical/Surgical History: Denies Medical/Surgical History HEENT History: Reports: Cataract, Impaired Vision, Other (See Below) Other HEENT History: Lu's esophagus Cardiovascular History: Reports: Afib, Angina, Automatic Implantable Cardioverter Defibrillators, High Cholesterol, Hypertension, Pacemaker, SOB on Exertion Other Cardiovascular History: Ablation in July,, angiogram 07/25/2017 Respiratory History: Reports: None, COPD, PE, Pneumonia, Recurrent, Sleep Apnea, SOB Other Respiratory History: wears a cpap at night Gastrointestinal History: Reports: Bowel Obstruction, Chronic Constipation, GERD, Other (See Below) Other Gastrointestinal History: duodenal ulcer Genitourinary History: Reports: Renal Calculus, Other (See Below) Other Genitourinary History: prostate stent placed 10/01/2016 Musculoskeletal History: Reports: Back Pain, Chronic Other Musculoskeletal History: Neck pain causing migraines Neurological History: Reports: Migraines Other Neuro History: Patient had vertebrae in neck fused. Resolved some or most of headaches. Psychiatric History: Reports: Depression, Emotional Problems Endocrine/Metabolic History: Reports: Diabetes, Type II, Obesity/BMI 30+ Other Endocrine/Metabolic History: pt has insulin pump Hematologic History: Reports: B12 Deficiency, Blood Transfusion(s) Oncologic (Cancer) History: Reports: None Dermatologic History: Reports: Other (See Below) Other Dermatologic History: Had pre-cancer lesion removed to R arm. Has lesion to L wrist. - Infectious Disease History Infectious Disease History: Reports: Chicken Pox, Measles, Rubella - Past Surgical History Head Surgeries/Procedures: Reports: None HEENT Surgical History: Reports: Tonsillectomy Other HEENT Surgeries/Procedures: C3 and C4 fusion- 2014 Cardiovascular Surgical History: Reports: Cardiac Ablation, Pacer Other Cardiovascular Surgeries/Procedures: Ablation in 2014 Respiratory Surgical History: Reports: None GI Surgical History: Reports: Cholecystectomy, Colonoscopy, Hernia, Inguinal, Other (See Below) Other GI Surgeries/Procedures: laproscopic sx for infestigation of constipation issues. Lap Adalgisa December 2020 Male Surgical History: Reports: Kidney Stone Extraction, Lithotripsy ([facility]) Endocrine Surgical History: Reports: None Neurological Surgical History: Reports: C-Spine, Spinal Fusion Other Neurological Surgeries/Procedures: Woke this Am with CARDONA - currently rates at 9.5/10 Musculoskeletal Surgical History: Reports: Knee Replacement Other Musculoskeletal Surgeries/Procedures:: C3-4 vertebral fusion Social & Family History - Family History Family Medical History: No Pertinent Family History HEENT: Reports: Cataract Cardiac: Reports: NM Respiratory: Reports: COPD GI: Reports: None : Reports: None Endocrine/Metabolic: Reports: Diabetes, type II Oncologic: Reports: Brain, Colon, Lung - Caffeine Use Caffeine Use: Reports: Soda Other Caffeine Use: diet coke - 3-4 cans /day - Living Situation & Occupation Living situation: Reports: Occupation: Unemployed ED ROS GENERAL - Review of Systems Review Of Systems: See Below Constitutional: Denies: Fever, Weakness, Decreased Appetite, Weight Loss HEENT: Denies: No Symptoms Respiratory: Denies: No Symptoms Endocrine: Reports: High Glucose GI/Abdominal: Denies: Abdominal Pain, Diarrhea, Nausea, Vomiting Musculoskeletal: Reports: No Symptoms Skin: Reports: No Symptoms Neurological: Reports: Headache Psychiatric: Reports: No Symptoms - Physical Exam Exam: See Below Exam Limited By: No Limitations General Appearance: Alert, No Apparent Distress Eye Exam: Bilateral Eye: EOMI, Normal Inspection, PERRL Ears: Normal External Exam Nose: Normal Inspection Throat/Mouth: Normal Inspection Head Exam: Atraumatic, Normocephalic Neck: Normal Inspection, Full Range of Motion Respiratory/Chest: No Respiratory Distress, Lungs Clear, Normal Breath Sounds, No Accessory Muscle Use Cardiovascular: Regular Rate, Rhythm Psychiatric: Normal Affect Skin Exam: Warm, Dry, Intact Course - Vital Signs Last Recorded V/S: Last Vital Signs Temp 36.4 C 05/12/21 13:38 Pulse 89 05/12/21 13:38 Resp 18 05/12/21 13:38 BP 113/77 05/12/21 13:38 Pulse Ox 95 05/12/21 13:38 - Orders/Labs/Meds Orders: Active Orders 24 hr Category Date Time Status Ketorolac [Toradol] Med 05/12/21 14:35 Once 60 mg IM ONETIME ONE Labs: Laboratory Tests 05/12/21 05/12/21 Range/Units 13:02 14:07 POC Glucose 511 H* 499 H* (74-110) mg/dL Meds: Medications Discontinued Medications Generic Name Dose Route Start Last Admin Trade Name Awilda PRN Reason Stop Dose Admin Insulin Human Regular 20 unit 05/12/21 13:23 05/12/21 13:36 Insulin Regular, Human 100 Units/Ml 3 Ml Vial SUBCUT 05/12/21 13:24 20 unit ONETIME ONE Administration Ketorolac Tromethamine Confirm 05/12/21 14:11 05/12/21 14:35 Ketorolac 60 Mg/2 Ml Sdv Administered 05/12/21 14:12 Not Given Dose 60 mg .ROUTE .STK-MED ONE - Re-Assessments/Exams Free Text/Narrative Re-Assessment/Exam: 05/12/21 14:36 This patient presents to the emergency department for evaluation of a headache. His blood sugar has been greater than 500 today and is 511 on arrival. He states that he had a dramatic change in his pump set up the last time he was at the summer intern, going from 6 units/h for basal rate down to 1.2. He is not able to change the basal rate. He was given 20 units of regular insulin in the ED which did not make much change in his glucose however has programmed his pump to give himself 25 units of NovoLog at this time. He was also given Toradol which resolved his headache. He will be discharged home with instructions to repeat the 25 unit NovoLog bolus through his pump, checking his blood sugar before and after that begins. This patient is well-known to the ER for having trouble regulating his blood sugar and makes regular changes to his insulin intake. He states he is adhering to a three carb per meal diet; however, blood sugar readings do not seem consistent with this. I suggested he follow-up by phone with his summer intern on May 15 to discuss this with him. The patient was stable at the time of discharge. Departure - Departure Time of Disposition: 14:45 Disposition: Home, Self-Care 01 Condition: Fair Clinical Impression: Headache, Hyperglycemia, Hyperglycemia, Tension-type headache - Discharge Information *PRESCRIPTION DRUG MONITORING PROGRAM REVIEWED*: No *COPY OF PRESCRIPTION DRUG MONITORING REPORT IN PATIENT KAVON: No Referrals: Hugo Dumas MD [Primary Care Provider] - Forms: ED Department Discharge Sepsis Event Note (ED) - Focused Exam Vital Signs: Vital Signs Temp Pulse Resp BP Pulse Ox 05/12/21 13:38 36.4 C 89 18 113/77 95 - My Orders Last 24 Hours: My Active Orders 05/12/21 14:35 Ketorolac [Toradol] 60 mg IM ONETIME ONE - Assessment/Plan Last 24 Hours: My Active Orders 05/12/21 14:35 Ketorolac [Toradol] 60 mg IM ONETIME ONE
[2021-05-12 13:39] VITALS: BP 113/77; PULSE 89
[2021-05-12] MEDS ORDERED: Ketorolac 60 MG/2 ML SDV ONE (14:11)
[2021-05-12] MEDS ORDERED: Ketorolac 60 MG/2 ML SDV IM ONE (14:35)
== END 2021-05-12 14:45 | disposition home or self-care (01) ==
LOC: LB.ED 12:50
DX: G44.209 Tension-type headache, unspecified, not intractable (principal); E11.65 Type 2 diabetes mellitus with hyperglycemia; K21.9 Gastro-esophageal reflux disease without esophagitis; I48.91 Unspecified atrial fibrillation; E66.9 Obesity, unspecified; Z68.30 Body mass index [BMI] 30.0-30.9, adult; Z91.018 Allergy to other foods; Z79.4 Long term (current) use of insulin; Z79.899 Other long term (current) drug therapy; Z79.01 Long term (current) use of anticoagulants
CPT/HCPCS: 82947; 96372; 99284; J1885

== ENCOUNTER 2021-07-31 14:02 | Observation (INO) | payer MEDICAID, MEDICARE ==
[2021-07-31] MEDS ORDERED: Nitroglycerin 0.4 MG Tab.SL SL SCH (15:45)
[2021-07-31] MEDS ORDERED: LORazepam 0.5 MG Tab PO PRN (15:45)
[2021-07-31] MEDS ORDERED: Acetaminophen 500 MG Tab PO PRN (15:45)
[2021-07-31] MEDS ORDERED: Furosemide 40 MG Tab PO SCH (15:45)
[2021-07-31] MEDS ORDERED: Cyclobenzaprine 10 MG Tab PO PRN (15:45)
[2021-07-31] MEDS ORDERED: [UNRECOGNIZED DRUG - OTHER] MC SCH (15:45)
[2021-07-31] MEDS ORDERED: Non-Formulary Medication 1 Each (Rizatriptan Benzoate [Rizatriptan] 10 MG Tablet) PO PRN (15:45)
[2021-07-31] MEDS ORDERED: Metolazone 5 MG Tab PO SCH (15:45)
[2021-07-31] MEDS ORDERED: Sodium Chloride 0.9% 1,000 ML IV SCH (16:00)
[2021-07-31] MEDS ORDERED: Potassium Chloride 10 MEQ Tab.ER PO PRN (16:03)
[2021-07-31] MEDS: traMADol 50 MG Tab PO PRN (19:47)
[2021-07-31] MEDS ORDERED: MECLIZINE 25 MG PO PRN (19:56)
[2021-07-31] MEDS ORDERED: NITROGLYCERIN 0.4 MG SL PRN (19:59)
[2021-07-31] MEDS ORDERED: FLUoxetine 10 MG Cap PO SCH (20:00)
[2021-07-31] MEDS ORDERED: Omeprazole 20 MG Cap.CR PO SCH (20:00)
[2021-07-31] MEDS ORDERED: atorvaSTATin 80 MG Tab PO SCH (20:00)
[2021-07-31] MEDS ORDERED: Non-Formulary Medication 1 Each (Famotidine [Pepcid] 40 MG Tablet) PO SCH (20:00)
[2021-07-31] MEDS ORDERED: TOUJEO SUBCUT SCH (20:00)
[2021-07-31] MEDS ORDERED: Nystatin Topical Powder 15 GM Bottle TOP SCH (20:00)
[2021-07-31] MEDS ORDERED: Non-Formulary Medication 1 Each (Insulin Glargine,Hum.Rec.Anlog [Toujeo Solostar] 300 UNIT SQ SCH (20:00)
[2021-07-31] MEDS ORDERED: RIZATRIPTAN 10 MG PO PRN (20:58)
[2021-07-31] MEDS ORDERED: NYSTATIN TOP SCH (21:00)
[2021-07-31] MEDS ORDERED: [UNRECOGNIZED DRUG - OTHER] SCH (21:15)
[2021-07-31] MEDS: NYSTATIN TOP SCH (21:39)
[2021-07-31] MEDS: METOCLOPRAMIDE 10 MG PO SCH (21:40)
[2021-07-31] MEDS: FAMOTIDINE 40 MG PO SCH (21:40)
[2021-07-31] MEDS: VICTOZA SUBCUT SCH (21:41)
[2021-07-31] MEDS: MELATONIN 5 MG PO SCH (21:43)
[2021-07-31] MEDS: Acetaminophen 500 MG Tab PO SCH (21:44)
[2021-07-31] MEDS: TOUJEO SUBCUT SCH (21:46)
[2021-08-01] MEDS: Acetaminophen 500 MG Tab PO SCH ×3 (03:45→20:18)
[2021-08-01] MEDS: METOCLOPRAMIDE 10 MG PO SCH ×4 (07:42→20:13)
[2021-08-01] MEDS ORDERED: INCRUSE ELLIPTA 62.5 MCG SCH (08:00)
[2021-08-01] MEDS ORDERED: Furosemide 40 MG Tab PO SCH (08:00)
[2021-08-01] MEDS ORDERED: Isosorbide Mononitrate 60 MG Tab.ER PO SCH (08:00)
[2021-08-01] MEDS ORDERED: Losartan 25 MG Tab PO SCH (08:00)
[2021-08-01] MEDS ORDERED: Non-Formulary Medication 1 Each (Fluticasone/Umeclidin/Vilanter [Trelegy Ellipta 100-62.5- IH SCH (08:00)
[2021-08-01] MEDS ORDERED: Clopidogrel 75 MG Tab PO SCH (08:00)
[2021-08-01] MEDS ORDERED: Gabapentin 300 MG Cap PO SCH (08:00)
[2021-08-01] MEDS ORDERED: Tamsulosin 0.4 MG Cap.ER PO SCH (08:00)
[2021-08-01] MEDS ORDERED: Metoprolol Succinate 25 MG Tab.ER PO SCH (08:00)
[2021-08-01] MEDS: FLUOXETINE 20 MG PO SCH (08:44)
[2021-08-01] MEDS: Metoprolol Succinate 50 MG Tab.ER**PT OWN PO SCH (08:45)
[2021-08-01] MEDS: OMEPRAZOLE 40MG **PT OWN PO SCH (08:46)
[2021-08-01] MEDS: Tamsulosin 0.4 MG Cap.ER**PT OWN PO SCH (08:47)
[2021-08-01] MEDS: WARFARIN 1 MG PO SCH (08:49)
[2021-08-01] MEDS: NYSTATIN TOP SCH ×2 (08:51→20:12)
[2021-08-01] MEDS: CYCLOBENZAPRINE 10 MG PO PRN ×2 (08:52→20:19)
[2021-08-01] MEDS: Furosemide 40 MG Tab**PT OWN PO SCH (08:55)
[2021-08-01] MEDS: INCRUSE ELLIPTA 62.5 MCG SCH (08:55)
[2021-08-01] MEDS: Aspirin 81 MG Tab.EC PO SCH (08:55)
[2021-08-01] MEDS: FAMOTIDINE 40 MG PO SCH ×2 (09:01→20:13)
[2021-08-01] MEDS: traMADol 50 MG Tab PO PRN ×2 (09:30→20:20)
[2021-08-01] MEDS: LOSARTAN 100 MG PO SCH (09:56)
[2021-08-01] MEDS: GABAPENTIN 300 MG PO SCH (09:58)
[2021-08-01] MEDS: FUROSEMIDE 40 MG PO SCH (12:20)
[2021-08-01] MEDS: Metoclopramide 10 MG Tab PO SCH (13:27)
[2021-08-01] MEDS: VICTOZA SUBCUT SCH (20:05)
[2021-08-01] MEDS: TOUJEO SUBCUT SCH (20:08)
[2021-08-01] MEDS: MELATONIN 5 MG PO SCH (20:11)
[2021-08-02] MEDS: Acetaminophen 500 MG Tab PO SCH ×2 (03:17→12:23)
[2021-08-02 03:21] VITALS: PULSE 66
[2021-08-02] MEDS: Aspirin 81 MG Tab.EC PO SCH (07:23)
[2021-08-02] MEDS: LOSARTAN 100 MG PO SCH (07:24)
[2021-08-02] MEDS: WARFARIN 1 MG PO SCH (07:24)
[2021-08-02] MEDS: OMEPRAZOLE 40MG **PT OWN PO SCH (07:24)
[2021-08-02] MEDS: Tamsulosin 0.4 MG Cap.ER**PT OWN PO SCH (07:24)
[2021-08-02] MEDS: FLUOXETINE 20 MG PO SCH (07:25)
[2021-08-02] MEDS: INCRUSE ELLIPTA 62.5 MCG SCH (07:25)
[2021-08-02] MEDS: GABAPENTIN 300 MG PO SCH (07:26)
[2021-08-02] MEDS: Furosemide 40 MG Tab**PT OWN PO SCH (07:26)
[2021-08-02] MEDS: METOCLOPRAMIDE 10 MG PO SCH ×2 (07:27→10:16)
[2021-08-02] MEDS: FAMOTIDINE 40 MG PO SCH (07:27)
[2021-08-02] MEDS: Metoprolol Succinate 50 MG Tab.ER**PT OWN PO SCH (07:29)
[2021-08-02 07:37] VITALS: BP 103/54
[2021-08-02] MEDS: NYSTATIN TOP SCH (07:37)
[2021-08-02] MEDS: traMADol 50 MG Tab PO PRN (07:44)
[2021-08-02] MEDS ORDERED: VICTOZA SUBCUT SCH (08:00)
[2021-08-02] MEDS: FUROSEMIDE 40 MG PO SCH (12:23)
[2021-08-03] MEDS ORDERED: METOLAZONE 2.5 MG PO SCH (07:00)
[2021-08-03] MEDS ORDERED: WARFARIN PO SCH (08:00)
== END 2021-08-02 10:30 | disposition swing bed (61) ==
LOC: LB.ED 14:02 → LB.MS 15:44 → UNDOADMIN 15:44 → LB.MS 15:44
PROVIDERS: ADMIT Physician Assistant; ATTEND Physician Assistant
DX: M25.561 Pain in right knee (principal); R29.6 Repeated falls; J44.9 Chronic obstructive pulmonary disease, unspecified; G47.30 Sleep apnea, unspecified; K21.9 Gastro-esophageal reflux disease without esophagitis; E66.9 Obesity, unspecified; E11.9 Type 2 diabetes mellitus without complications; Z79.4 Long term (current) use of insulin; W19.XXXA Unspecified fall, initial encounter; Z91.018 Allergy to other foods; Z88.8 Allergy status to other drugs, medicaments and biological substances; Z79.899 Other long term (current) drug therapy; Z98.890 Other specified postprocedural states; Z20.822 Contact with and (suspected) exposure to COVID-19
CPT/HCPCS: 36415; 73560-RT; 73610-RT; 80048; 80053; 82947; 85025; 93005; 97165-GO; A0425; A0429; A9270-GY; G0378; J7030; U0002

== ENCOUNTER 2021-08-02 10:21 | Inpatient (IN) | payer MEDICARE ==
[2021-08-02] MEDS ORDERED: 50% Dextrose in Water 50 ML Syringe IVPUSH PRN (11:28)
[2021-08-02] MEDS ORDERED: Glucagon,Human Recombinant 1 MG Vial IM PRN (11:28)
[2021-08-02] MEDS ORDERED: Acetaminophen 500 MG Tab PO PRN (11:28)
[2021-08-02] MEDS ORDERED: Cyclobenzaprine 10 MG Tab PO PRN (11:28)
[2021-08-02] MEDS ORDERED: Tuberculin, PPD 5 Units/0.1 ML 1 ML MDV IDERM ONE (12:53)
[2021-08-02] MEDS ORDERED: RIZATRIPTAN 10MG TABLET PO PRN (14:40)
[2021-08-02] MEDS ORDERED: traMADol 50 MG Tab PO PRN (14:42)
[2021-08-02] MEDS ORDERED: Insulin Aspart 100 Units/ML 3 ML Pen SUBCUT SCH (17:00)
[2021-08-02] MEDS: Famotidine 20 MG Tab PO SCH (19:40)
[2021-08-02] MEDS: Nystatin Topical Powder 15 GM Bottle TOP SCH (19:42)
[2021-08-02] MEDS ORDERED: Melatonin 10 MG Cap PO SCH (20:00)
[2021-08-02] MEDS ORDERED: Insulin Glargine,Human Rec. Analog 100 Units/ML 3 ML Pen SUBCUT SCH (20:00)
[2021-08-02] MEDS ORDERED: Non-Formulary Medication 1 Each (Famotidine [Pepcid] 40 MG Tablet) PO SCH (20:00)
[2021-08-02] MEDS ORDERED: Non-Formulary Medication 1 Each (Insulin Glargine,Hum.Rec.Anlog [Toujeo Solostar] 300 UNIT SQ SCH (20:00)
[2021-08-02] MEDS ORDERED: atorvaSTATin 80 MG Tab PO SCH (20:00)
[2021-08-02] MEDS ORDERED: INSULIN GLARGINE 300 UNIT/ML SUBCUT SCH (20:00)
[2021-08-03] MEDS: Famotidine 20 MG Tab PO SCH (07:23)
[2021-08-03 07:27] VITALS: BP 113/63
[2021-08-03] MEDS: Nystatin Topical Powder 15 GM Bottle TOP SCH (07:30)
[2021-08-03 07:38] VITALS: PULSE 97
[2021-08-03] MEDS ORDERED: Gabapentin 300 MG Cap PO SCH (08:00)
[2021-08-03] MEDS ORDERED: Warfarin 2 MG Tab PO SCH ×2 (08:00→14:43)
[2021-08-03] MEDS ORDERED: Losartan 50 MG Tab PO SCH (08:00)
[2021-08-03] MEDS ORDERED: Tamsulosin 0.4 MG Cap.ER PO SCH (08:00)
[2021-08-03] MEDS ORDERED: Metoprolol Succinate 50 MG Tab.ER PO SCH (08:00)
[2021-08-03] MEDS ORDERED: Omeprazole 20 MG Cap.CR PO SCH (08:00)
[2021-08-03] MEDS ORDERED: VICTOZA 1.8 MG SUBCUT SCH (08:00)
[2021-08-03] MEDS ORDERED: Furosemide 40 MG Tab PO SCH ×2 (08:00→11:00)
[2021-08-03] MEDS ORDERED: Furosemide 20 MG Tab PO SCH (08:00)
[2021-08-03] MEDS ORDERED: FLUoxetine 20 MG Cap PO SCH (08:00)
[2021-08-03] MEDS ORDERED: INCRUSE ELLIPTA INH SCH (08:00)
[2021-08-03] MEDS ORDERED: Aspirin 81 MG Tab.EC PO SCH (08:00)
[2021-08-03] MEDS ORDERED: Non-Formulary Medication 1 Each (Rizatriptan Benzoate [Rizatriptan] 10 MG Tablet) PO PRN (10:06)
[2021-08-03] MEDS ORDERED: LORazepam 0.5 MG Tab PO PRN (10:06)
[2021-08-03] MEDS ORDERED: Nitroglycerin 0.4 MG Tab.SL SL SCH (10:15)
[2021-08-03] MEDS ORDERED: MECLIZINE 25 MG PO SCH (10:15)
[2021-08-03] MEDS ORDERED: [UNRECOGNIZED DRUG - OTHER] MC SCH (10:15)
[2021-08-03] MEDS ORDERED: Metolazone 5 MG Tab PO SCH (10:15)
[2021-08-03] MEDS ORDERED: Metoclopramide 10 MG Tab PO SCH (11:00)
[2021-08-03] MEDS ORDERED: Non-Formulary Medication 1 Each (Melatonin [Melatonin] 5 MG Tablet) PO SCH (20:00)
[2021-08-04] MEDS ORDERED: Non-Formulary Medication 1 Each (Liraglutide [Victoza] 18 MG/3 ML Pen) SQ SCH (08:00)
[2021-08-04] MEDS ORDERED: Non-Formulary Medication 1 Each (Omeprazole [Omeprazole] 40 MG Capsule.Dr) PO SCH (08:00)
[2021-08-04] MEDS ORDERED: Tamsulosin 0.4 MG Cap.ER PO SCH (08:00)
[2021-08-04] MEDS ORDERED: Non-Formulary Medication 1 Each (Losartan [Cozaar] 100 MG Tablet) PO SCH (08:00)
[2021-08-04] MEDS ORDERED: Non-Formulary Medication 1 Each (Umeclidinium Bromide [Incruse Ellipta*] 62.5 MCG Blst.W.D IH SCH (08:00)
[2021-08-04] MEDS ORDERED: Metoprolol Succinate 25 MG Tab.ER PO SCH (08:00)
== END 2021-08-03 11:00 | disposition home or self-care (01) | DRG 948 ==
LOC: LB.MS 10:21
PROVIDERS: ADMIT Nurse Practitioner; ATTEND Nurse Practitioner
DX: R53.1 Weakness (principal); M25.562 Pain in left knee; M25.561 Pain in right knee; Z79.1 Long term (current) use of non-steroidal anti-inflammatories (NSAID); Z79.82 Long term (current) use of aspirin; Z79.899 Other long term (current) drug therapy; Z79.01 Long term (current) use of anticoagulants; Z79.52 Long term (current) use of systemic steroids; Z79.4 Long term (current) use of insulin; W18.39XA Other fall on same level, initial encounter; Y92.009 Unspecified place in unspecified non-institutional (private) residence as the place of occurrence of the external cause
CPT/HCPCS: 86580; 97530-GO; A9270-GY

== ENCOUNTER 2021-08-04 12:10 | Emergency (ER) | payer MEDICARE ==
[2013-05-05 12:09] VITALS: BP 133/86
== END 2021-08-04 13:15 | disposition swing bed (61) ==
LOC: LB.ED 12:10
DX: R53.1 Weakness (principal); R42 Dizziness and giddiness; J44.9 Chronic obstructive pulmonary disease, unspecified; I48.91 Unspecified atrial fibrillation; K21.9 Gastro-esophageal reflux disease without esophagitis; E11.9 Type 2 diabetes mellitus without complications; E66.9 Obesity, unspecified; Z68.30 Body mass index [BMI] 30.0-30.9, adult; Z91.048 Other nonmedicinal substance allergy status; Z79.4 Long term (current) use of insulin; Z79.899 Other long term (current) drug therapy
CPT/HCPCS: 82947; 99285; A0425; A0429

== ENCOUNTER 2021-08-04 13:32 | Inpatient (IN) | payer MEDICARE ==
[2021-08-04] MEDS ORDERED: 50% Dextrose in Water 50 ML Syringe IVPUSH PRN (13:43)
[2021-08-04] MEDS ORDERED: Glucagon,Human Recombinant 1 MG Vial IM PRN (13:43)
[2021-08-04] MEDS ORDERED: LORazepam 0.5 MG Tab PO PRN (13:43)
[2021-08-04] MEDS ORDERED: Non-Formulary Medication 1 Each (Rizatriptan Benzoate [Rizatriptan] 10 MG Tablet) PO PRN (13:43)
[2021-08-04] MEDS ORDERED: Cyclobenzaprine 10 MG Tab PO PRN (13:43)
[2021-08-04] MEDS ORDERED: Nitroglycerin 0.4 MG Tab.SL SL PRN (13:45)
[2021-08-04] MEDS ORDERED: MECLIZINE 25 MG PO SCH (13:45)
[2021-08-04] MEDS ORDERED: [UNRECOGNIZED DRUG - OTHER] MC SCH (13:45)
[2021-08-04] MEDS ORDERED: Insulin Aspart 100 Units/ML 3 ML Pen SUBCUT SCH (17:00)
[2021-08-04] MEDS: Metoclopramide 10 MG Tab PO SCH ×2 (17:17→19:17)
[2021-08-04] MEDS: Acetaminophen 500 MG Tab PO SCH ×2 (17:18→17:20)
[2021-08-04] MEDS ORDERED: Acetaminophen 500 MG Tab ONE (17:21)
[2021-08-04] MEDS: atorvaSTATin 80 MG Tab PO SCH (19:17)
[2021-08-04] MEDS: Famotidine 20 MG Tab PO SCH (19:17)
[2021-08-04] MEDS: Melatonin 10 MG Cap PO SCH (19:18)
[2021-08-04] MEDS ORDERED: Non-Formulary Medication 1 Each (Famotidine [Pepcid] 40 MG Tablet) PO SCH (20:00)
[2021-08-04] MEDS ORDERED: Non-Formulary Medication 1 Each (Insulin Glargine,Hum.Rec.Anlog [Toujeo Solostar] 300 UNIT SQ SCH (20:00)
[2021-08-04] MEDS ORDERED: INSULIN GLARGINE SQ SCH (20:00)
[2021-08-04] MEDS ORDERED: Insulin Glargine,Human Rec. Analog 100 Units/ML 3 ML Pen SUBCUT ONE ×2 (20:00)
[2021-08-04] MEDS ORDERED: Non-Formulary Medication 1 Each (Melatonin [Melatonin] 5 MG Tablet) PO SCH (20:00)
[2021-08-05] MEDS: Acetaminophen 500 MG Tab PO SCH ×4 (05:58→21:39)
[2021-08-05] MEDS: Warfarin 2 MG Tab PO SCH (07:48)
[2021-08-05] MEDS: Furosemide 20 MG Tab PO SCH (07:49)
[2021-08-05] MEDS: Omeprazole 20 MG Cap.CR PO SCH (07:49)
[2021-08-05] MEDS: Famotidine 20 MG Tab PO SCH ×2 (07:49→19:52)
[2021-08-05] MEDS: Gabapentin 300 MG Cap PO SCH (07:49)
[2021-08-05] MEDS: Aspirin 81 MG Tab.EC PO SCH (07:50)
[2021-08-05] MEDS: FLUoxetine 20 MG Cap PO SCH (07:50)
[2021-08-05] MEDS: Tamsulosin 0.4 MG Cap.ER PO SCH (07:50)
[2021-08-05] MEDS: Metoclopramide 10 MG Tab PO SCH ×4 (07:50→19:52)
[2021-08-05] MEDS: UMECLIDINIUM BROMIDE 62.5 MCG INH SCH (07:52)
[2021-08-05] MEDS: BLST W D INH SCH (07:52)
[2021-08-05] MEDS: Losartan 50 MG Tab PO SCH (07:56)
[2021-08-05] MEDS: Isosorbide Mononitrate 60 MG Tab.ER PO SCH (07:56)
[2021-08-05] MEDS: Metoprolol Succinate 50 MG Tab.ER PO SCH (07:57)
[2021-08-05] MEDS ORDERED: Metoprolol Succinate 25 MG Tab.ER PO SCH (08:00)
[2021-08-05] MEDS ORDERED: Non-Formulary Medication 1 Each (Losartan [Cozaar] 100 MG Tablet) PO SCH (08:00)
[2021-08-05] MEDS ORDERED: Non-Formulary Medication 1 Each (Omeprazole [Omeprazole] 40 MG Capsule.Dr) PO SCH (08:00)
[2021-08-05] MEDS: Furosemide 40 MG Tab PO SCH (14:27)
[2021-08-05] MEDS ORDERED: Metoclopramide 10 MG Tab ONE (14:29)
[2021-08-05] MEDS: atorvaSTATin 80 MG Tab PO SCH (19:52)
[2021-08-05] MEDS: Melatonin 10 MG Cap PO SCH (19:52)
[2021-08-05] MEDS ORDERED: Insulin Glargine,Human Rec. Analog 100 Units/ML 3 ML Pen SUBCUT ONE (20:00)
[2021-08-05] MEDS: Insulin Glargine,Human Rec. Analog 100 Units/ML 3 ML Pen SUBCUT SCH (20:09)
[2021-08-06] MEDS: Omeprazole 20 MG Cap.CR PO SCH (07:45)
[2021-08-06] MEDS: Furosemide 20 MG Tab PO SCH (07:45)
[2021-08-06] MEDS: Gabapentin 300 MG Cap PO SCH (07:46)
[2021-08-06] MEDS: Isosorbide Mononitrate 60 MG Tab.ER PO SCH (07:46)
[2021-08-06] MEDS: Aspirin 81 MG Tab.EC PO SCH (07:46)
[2021-08-06] MEDS: Acetaminophen 500 MG Tab PO SCH ×3 (07:47→22:05)
[2021-08-06] MEDS: FLUoxetine 20 MG Cap PO SCH (07:47)
[2021-08-06] MEDS: Tamsulosin 0.4 MG Cap.ER PO SCH (07:47)
[2021-08-06] MEDS: Warfarin 2 MG Tab PO SCH (07:47)
[2021-08-06] MEDS: Metoclopramide 10 MG Tab PO SCH ×4 (07:47→19:44)
[2021-08-06] MEDS: Famotidine 20 MG Tab PO SCH ×2 (07:47→19:43)
[2021-08-06] MEDS: Losartan 50 MG Tab PO SCH (07:57)
[2021-08-06] MEDS: UMECLIDINIUM BROMIDE 62.5 MCG INH SCH (07:58)
[2021-08-06] MEDS: BLST W D INH SCH (07:58)
[2021-08-06] MEDS: Metoprolol Succinate 50 MG Tab.ER PO SCH (07:58)
[2021-08-06] MEDS ORDERED: Acetaminophen 500 MG Tab ONE (12:39)
[2021-08-06] MEDS: Furosemide 40 MG Tab PO SCH (15:03)
[2021-08-06] MEDS: atorvaSTATin 80 MG Tab PO SCH (19:43)
[2021-08-06] MEDS: Melatonin 10 MG Cap PO SCH (19:44)
[2021-08-06] MEDS: Insulin Glargine,Human Rec. Analog 100 Units/ML 3 ML Pen SUBCUT SCH (20:15)
[2021-08-07] MEDS: Acetaminophen 500 MG Tab PO SCH ×3 (06:16→22:21)
[2021-08-07] MEDS: Aspirin 81 MG Tab.EC PO SCH (07:28)
[2021-08-07] MEDS: Gabapentin 300 MG Cap PO SCH (07:28)
[2021-08-07] MEDS: FLUoxetine 20 MG Cap PO SCH (07:29)
[2021-08-07] MEDS: Losartan 50 MG Tab PO SCH (07:29)
[2021-08-07] MEDS: Omeprazole 20 MG Cap.CR PO SCH (07:30)
[2021-08-07] MEDS: Isosorbide Mononitrate 60 MG Tab.ER PO SCH (07:30)
[2021-08-07] MEDS: Furosemide 20 MG Tab PO SCH (07:31)
[2021-08-07] MEDS: Tamsulosin 0.4 MG Cap.ER PO SCH (07:31)
[2021-08-07] MEDS: Metoprolol Succinate 50 MG Tab.ER PO SCH (07:31)
[2021-08-07] MEDS: Metoclopramide 10 MG Tab PO SCH ×3 (07:37→19:34)
[2021-08-07] MEDS ORDERED: Metoclopramide 5 MG Tab ONE (07:37)
[2021-08-07] MEDS: BLST W D INH SCH (09:26)
[2021-08-07] MEDS: UMECLIDINIUM BROMIDE 62.5 MCG INH SCH (09:26)
[2021-08-07] MEDS: Famotidine 20 MG Tab PO SCH ×2 (09:38→19:34)
[2021-08-07] MEDS: Furosemide 40 MG Tab PO SCH (13:47)
[2021-08-07] MEDS: Metolazone 5 MG Tab PO SCH (13:47)
[2021-08-07] MEDS: Melatonin 10 MG Cap PO SCH (19:33)
[2021-08-07] MEDS: atorvaSTATin 80 MG Tab PO SCH (19:34)
[2021-08-07] MEDS: Insulin Glargine,Human Rec. Analog 100 Units/ML 3 ML Pen SUBCUT SCH (19:35)
[2021-08-08] MEDS: Acetaminophen 500 MG Tab PO SCH ×4 (05:43→21:45)
[2021-08-08] MEDS: Furosemide 20 MG Tab PO SCH (07:53)
[2021-08-08] MEDS: Famotidine 20 MG Tab PO SCH ×2 (07:54→20:07)
[2021-08-08] MEDS: Losartan 50 MG Tab PO SCH (07:54)
[2021-08-08] MEDS: Tamsulosin 0.4 MG Cap.ER PO SCH (07:54)
[2021-08-08] MEDS: FLUoxetine 20 MG Cap PO SCH (07:54)
[2021-08-08] MEDS: Metoprolol Succinate 50 MG Tab.ER PO SCH (07:54)
[2021-08-08] MEDS: Omeprazole 20 MG Cap.CR PO SCH (07:54)
[2021-08-08] MEDS: Metoclopramide 10 MG Tab PO SCH ×5 (07:54→20:07)
[2021-08-08] MEDS: Gabapentin 300 MG Cap PO SCH (07:55)
[2021-08-08] MEDS: Aspirin 81 MG Tab.EC PO SCH (07:55)
[2021-08-08] MEDS: Isosorbide Mononitrate 60 MG Tab.ER PO SCH (07:55)
[2021-08-08] MEDS: UMECLIDINIUM BROMIDE 62.5 MCG INH SCH (07:56)
[2021-08-08] MEDS: BLST W D INH SCH (07:56)
[2021-08-08] MEDS: Furosemide 40 MG Tab PO SCH (13:56)
[2021-08-08] MEDS: Melatonin 10 MG Cap PO SCH (20:07)
[2021-08-08] MEDS: atorvaSTATin 80 MG Tab PO SCH (20:07)
[2021-08-08] MEDS: Insulin Glargine,Human Rec. Analog 100 Units/ML 3 ML Pen SUBCUT SCH (20:17)
[2021-08-09] MEDS: Acetaminophen 500 MG Tab PO SCH ×3 (06:07→21:20)
[2021-08-09] MEDS: BLST W D INH SCH (07:35)
[2021-08-09] MEDS: UMECLIDINIUM BROMIDE 62.5 MCG INH SCH (07:35)
[2021-08-09] MEDS: Furosemide 20 MG Tab PO SCH (07:36)
[2021-08-09] MEDS: Gabapentin 300 MG Cap PO SCH (07:36)
[2021-08-09] MEDS: Omeprazole 20 MG Cap.CR PO SCH (07:36)
[2021-08-09] MEDS: Aspirin 81 MG Tab.EC PO SCH (07:36)
[2021-08-09] MEDS: Isosorbide Mononitrate 60 MG Tab.ER PO SCH (07:36)
[2021-08-09] MEDS: FLUoxetine 20 MG Cap PO SCH (07:37)
[2021-08-09] MEDS: Famotidine 20 MG Tab PO SCH ×2 (07:37→20:08)
[2021-08-09] MEDS: Metoprolol Succinate 50 MG Tab.ER PO SCH (07:37)
[2021-08-09] MEDS: Losartan 50 MG Tab PO SCH (07:37)
[2021-08-09] MEDS: Metoclopramide 10 MG Tab PO SCH ×4 (07:37→20:08)
[2021-08-09] MEDS: Tamsulosin 0.4 MG Cap.ER PO SCH (07:37)
[2021-08-09] MEDS: Furosemide 40 MG Tab PO SCH (14:06)
[2021-08-09] MEDS ORDERED: Tuberculin, PPD 5 Units/0.1 ML 1 ML MDV IDERM ONE (14:37)
[2021-08-09] MEDS: Insulin Glargine,Human Rec. Analog 100 Units/ML 3 ML Pen SUBCUT SCH (20:03)
[2021-08-09] MEDS: Melatonin 10 MG Cap PO SCH (20:08)
[2021-08-09] MEDS: atorvaSTATin 80 MG Tab PO SCH (20:08)
[2021-08-10] MEDS: Acetaminophen 500 MG Tab PO SCH ×3 (06:30→23:02)
[2021-08-10] MEDS: Metoclopramide 10 MG Tab PO SCH ×4 (06:31→19:16)
[2021-08-10] MEDS: Metoprolol Succinate 50 MG Tab.ER PO SCH (07:44)
[2021-08-10] MEDS: Furosemide 20 MG Tab PO SCH (07:44)
[2021-08-10] MEDS: UMECLIDINIUM BROMIDE 62.5 MCG INH SCH (07:44)
[2021-08-10] MEDS: Gabapentin 300 MG Cap PO SCH (07:44)
[2021-08-10] MEDS: BLST W D INH SCH (07:44)
[2021-08-10] MEDS: Omeprazole 20 MG Cap.CR PO SCH (07:45)
[2021-08-10] MEDS: Aspirin 81 MG Tab.EC PO SCH (07:45)
[2021-08-10] MEDS: Famotidine 20 MG Tab PO SCH ×2 (07:45→19:16)
[2021-08-10] MEDS: FLUoxetine 20 MG Cap PO SCH (07:45)
[2021-08-10] MEDS: Losartan 50 MG Tab PO SCH (07:45)
[2021-08-10] MEDS: Tamsulosin 0.4 MG Cap.ER PO SCH (07:45)
[2021-08-10] MEDS: Warfarin 2 MG Tab PO SCH (07:46)
[2021-08-10] MEDS: traMADol 50 MG Tab PO PRN (08:17)
[2021-08-10] MEDS: Metolazone 5 MG Tab PO SCH (15:07)
[2021-08-10] MEDS: Furosemide 40 MG Tab PO SCH (15:07)
[2021-08-10] MEDS: Melatonin 10 MG Cap PO SCH (19:16)
[2021-08-10] MEDS: atorvaSTATin 80 MG Tab PO SCH (19:16)
[2021-08-10] MEDS: Insulin Glargine,Human Rec. Analog 100 Units/ML 3 ML Pen SUBCUT SCH (19:19)
[2021-08-11] MEDS: Aspirin 81 MG Tab.EC PO SCH (07:46)
[2021-08-11] MEDS: FLUoxetine 20 MG Cap PO SCH (07:47)
[2021-08-11] MEDS: Tamsulosin 0.4 MG Cap.ER PO SCH (07:47)
[2021-08-11] MEDS: Famotidine 20 MG Tab PO SCH ×2 (07:47→19:40)
[2021-08-11] MEDS: Losartan 50 MG Tab PO SCH (07:47)
[2021-08-11] MEDS: Furosemide 20 MG Tab PO SCH (07:47)
[2021-08-11] MEDS: Metoclopramide 10 MG Tab PO SCH ×4 (07:47→19:40)
[2021-08-11] MEDS: Gabapentin 300 MG Cap PO SCH (07:48)
[2021-08-11] MEDS: Omeprazole 20 MG Cap.CR PO SCH (07:48)
[2021-08-11] MEDS: BLST W D INH SCH (07:49)
[2021-08-11] MEDS: Metoprolol Succinate 50 MG Tab.ER PO SCH (07:49)
[2021-08-11] MEDS: UMECLIDINIUM BROMIDE 62.5 MCG INH SCH (07:49)
[2021-08-11] MEDS: Acetaminophen 500 MG Tab PO SCH ×3 (07:50→22:49)
[2021-08-11] MEDS: Warfarin 2 MG Tab PO SCH (07:50)
[2021-08-11] MEDS ORDERED: Nystatin Topical Powder 15 GM Bottle ONE (09:21)
[2021-08-11] MEDS: Furosemide 40 MG Tab PO SCH (14:11)
[2021-08-11] MEDS: Rivaroxaban 10 MG Tab PO SCH (17:45)
[2021-08-11] MEDS: atorvaSTATin 80 MG Tab PO SCH (19:40)
[2021-08-11] MEDS: Insulin Glargine,Human Rec. Analog 100 Units/ML 3 ML Pen SUBCUT SCH (20:10)
[2021-08-11] MEDS: traMADol 50 MG Tab PO PRN (20:44)
[2021-08-11] MEDS: Melatonin 10 MG Cap PO SCH (20:48)
[2021-08-12] MEDS: Tamsulosin 0.4 MG Cap.ER PO SCH (07:22)
[2021-08-12] MEDS: Metoclopramide 10 MG Tab PO SCH ×4 (07:22→19:28)
[2021-08-12] MEDS: Aspirin 81 MG Tab.EC PO SCH (07:22)
[2021-08-12] MEDS: FLUoxetine 20 MG Cap PO SCH (07:23)
[2021-08-12] MEDS: Acetaminophen 500 MG Tab PO SCH ×3 (07:23→21:14)
[2021-08-12] MEDS: Furosemide 20 MG Tab PO SCH (07:23)
[2021-08-12] MEDS: Gabapentin 300 MG Cap PO SCH (07:24)
[2021-08-12] MEDS: Famotidine 20 MG Tab PO SCH ×2 (07:25→19:28)
[2021-08-12] MEDS: Losartan 50 MG Tab PO SCH (07:25)
[2021-08-12] MEDS: Omeprazole 20 MG Cap.CR PO SCH (07:25)
[2021-08-12] MEDS: BLST W D INH SCH (07:35)
[2021-08-12] MEDS: UMECLIDINIUM BROMIDE 62.5 MCG INH SCH (07:35)
[2021-08-12] MEDS: Metoprolol Succinate 50 MG Tab.ER PO SCH (07:52)
[2021-08-12] MEDS: Nystatin Topical Powder 15 GM Bottle TOP SCH (07:58)
[2021-08-12] MEDS: Furosemide 40 MG Tab PO SCH (13:47)
[2021-08-12] MEDS: Rivaroxaban 10 MG Tab PO SCH (18:15)
[2021-08-12] MEDS: atorvaSTATin 80 MG Tab PO SCH (19:28)
[2021-08-12] MEDS: Insulin Glargine,Human Rec. Analog 100 Units/ML 3 ML Pen SUBCUT SCH (19:29)
[2021-08-12] MEDS ORDERED: Famotidine 20 MG Tab ONE (19:34)
[2021-08-12] MEDS: Melatonin 10 MG Cap PO SCH (21:12)
[2021-08-13] MEDS: Acetaminophen 500 MG Tab PO SCH ×4 (00:33→23:04)
[2021-08-13] MEDS ORDERED: Polyethylene Glycol 3350 Powder 17 GM Packet PO ONE (05:45)
[2021-08-13] MEDS: Famotidine 20 MG Tab PO SCH ×2 (08:27→19:26)
[2021-08-13] MEDS: Losartan 50 MG Tab PO SCH (08:28)
[2021-08-13] MEDS: Metoclopramide 10 MG Tab PO SCH ×4 (08:29→19:26)
[2021-08-13] MEDS: Gabapentin 300 MG Cap PO SCH (08:29)
[2021-08-13] MEDS: Tamsulosin 0.4 MG Cap.ER PO SCH (08:29)
[2021-08-13] MEDS: FLUoxetine 20 MG Cap PO SCH (08:29)
[2021-08-13] MEDS: Aspirin 81 MG Tab.EC PO SCH (08:30)
[2021-08-13] MEDS: Omeprazole 20 MG Cap.CR PO SCH (08:30)
[2021-08-13] MEDS: Metoprolol Succinate 50 MG Tab.ER PO SCH (08:30)
[2021-08-13] MEDS: Furosemide 20 MG Tab PO SCH (08:31)
[2021-08-13] MEDS: BLST W D INH SCH (08:32)
[2021-08-13] MEDS: UMECLIDINIUM BROMIDE 62.5 MCG INH SCH (08:32)
[2021-08-13] MEDS: Nystatin Topical Powder 15 GM Bottle TOP SCH (08:32)
[2021-08-13] MEDS: Polyethylene Glycol 3350 Powder 17 GM Packet PO SCH (09:52)
[2021-08-13] MEDS: Furosemide 40 MG Tab PO SCH (14:47)
[2021-08-13] MEDS: Rivaroxaban 10 MG Tab PO SCH (17:10)
[2021-08-13] MEDS ORDERED: Melatonin 3 MG Tab ONE (19:22)
[2021-08-13] MEDS: atorvaSTATin 80 MG Tab PO SCH (19:26)
[2021-08-13] MEDS: Melatonin 10 MG Cap PO SCH (19:28)
[2021-08-13] MEDS: Insulin Glargine,Human Rec. Analog 100 Units/ML 3 ML Pen SUBCUT SCH (19:29)
[2021-08-14 07:56] VITALS: BP 130/67; PULSE 78
[2021-08-14] MEDS: Nystatin Topical Powder 15 GM Bottle TOP SCH (07:57)
[2021-08-14] MEDS: UMECLIDINIUM BROMIDE 62.5 MCG INH SCH (07:58)
[2021-08-14] MEDS: BLST W D INH SCH (07:58)
[2021-08-14] MEDS: Metoclopramide 10 MG Tab PO SCH (07:59)
[2021-08-14] MEDS: Metoprolol Succinate 50 MG Tab.ER PO SCH (07:59)
[2021-08-14] MEDS: Losartan 50 MG Tab PO SCH (07:59)
[2021-08-14] MEDS: Aspirin 81 MG Tab.EC PO SCH (07:59)
[2021-08-14] MEDS: FLUoxetine 20 MG Cap PO SCH (07:59)
[2021-08-14] MEDS: Tamsulosin 0.4 MG Cap.ER PO SCH (07:59)
[2021-08-14] MEDS: Acetaminophen 500 MG Tab PO SCH (08:00)
[2021-08-14] MEDS: Omeprazole 20 MG Cap.CR PO SCH (08:00)
[2021-08-14] MEDS: Furosemide 20 MG Tab PO SCH (08:00)
[2021-08-14] MEDS: Gabapentin 300 MG Cap PO SCH (08:00)
[2021-08-14] MEDS: Polyethylene Glycol 3350 Powder 17 GM Packet PO SCH (08:02)
[2021-08-14] MEDS: Famotidine 20 MG Tab PO SCH (08:09)
[2021-08-14] MEDS ORDERED: FUROSEMIDE 40 MG PO SCH (11:00)
[2021-08-14] MEDS ORDERED: Metolazone 5 MG Tab PO SCH (14:00)
[2021-08-15] MEDS ORDERED: FUROSEMIDE 40 MG PO SCH (08:00)
== END 2021-08-14 11:45 | disposition home or self-care (01) | DRG 948 ==
LOC: LB.MS 13:40
PROVIDERS: ADMIT Nurse Practitioner; ATTEND Nurse Practitioner
DX: R53.1 Weakness (principal); I47.1 Supraventricular tachycardia; Z68.42 Body mass index [BMI] 45.0-49.9, adult; R42 Dizziness and giddiness; H54.7 Unspecified visual loss; J44.9 Chronic obstructive pulmonary disease, unspecified; G47.30 Sleep apnea, unspecified; I48.91 Unspecified atrial fibrillation; E78.00 Pure hypercholesterolemia, unspecified; K59.09 Other constipation; K21.9 Gastro-esophageal reflux disease without esophagitis; M54.9 Dorsalgia, unspecified; G89.29 Other chronic pain; F32.A Depression, unspecified; Z96.659 Presence of unspecified artificial knee joint; E66.9 Obesity, unspecified; E11.9 Type 2 diabetes mellitus without complications; Z91.09 Other allergy status, other than to drugs and biological substances; Z88.8 Allergy status to other drugs, medicaments and biological substances; Z79.4 Long term (current) use of insulin; Z79.82 Long term (current) use of aspirin; Z79.01 Long term (current) use of anticoagulants; Z79.899 Other long term (current) drug therapy; Z86.711 Personal history of pulmonary embolism; Z87.01 Personal history of pneumonia (recurrent); Z95.0 Presence of cardiac pacemaker; Z90.49 Acquired absence of other specified parts of digestive tract; Z87.442 Personal history of urinary calculi
CPT/HCPCS: 36415; 80048; 82947; 85610; 86580; 93242; 93243; 97110-GO; 97110-GP; 97116-GP; 97161-GP; 97165-GO; 97530-GO; 99222; 99232; 99238; A9270-GY; J1815-GY

== ENCOUNTER 2021-08-30 13:34 | Observation (INO) | payer MEDICARE ==
[2021-08-30] MEDS ORDERED: Sodium Chloride 0.9% 1,000 ML IV SCH ×2 (14:30→15:30)
[2021-08-30] MEDS ORDERED: Insulin Regular, Human 100 Units/ML 3 ML Vial IV ONE (15:24)
[2021-08-30] MEDS ORDERED: Glucagon,Human Recombinant 1 MG Vial IM PRN (15:24)
[2021-08-30] MEDS ORDERED: 50% Dextrose in Water 50 ML Syringe IVPUSH PRN (15:24)
[2021-08-30] MEDS ORDERED: Potassium Chloride 20 MEQ Tab.ER PO ONE (15:28)
[2021-08-30] MEDS ORDERED: TRAMADOL HCL 50 MG PO PRN (16:41)
[2021-08-30] MEDS ORDERED: Non-Formulary Medication 1 Each (Acetaminophen [Acetaminophen] 325 MG Tablet) PO PRN (16:41)
[2021-08-30] MEDS ORDERED: LORAZEPAM 0.5 MG PO PRN (16:41)
[2021-08-30] MEDS ORDERED: Non-Formulary Medication 1 Each (Rizatriptan Benzoate [Rizatriptan] 10 MG Tablet) PO PRN (16:41)
[2021-08-30] MEDS ORDERED: NITROGLYCERIN 0.4 MG PO SCH (16:45)
[2021-08-30] MEDS ORDERED: [UNRECOGNIZED DRUG - OTHER] MC SCH (16:45)
[2021-08-30] MEDS ORDERED: MECLIZINE 25 MG PO SCH (16:45)
[2021-08-30] MEDS ORDERED: Sodium Chloride 0.9% 1,000 ML IV ONE (16:53)
[2021-08-30] MEDS ORDERED: METOCLOPRAMIDE HCL 10 MG PO SCH (17:00)
[2021-08-30] MEDS ORDERED: Non-Formulary Medication 1 Each (Insulin Aspart [Novolog] 100 UNIT/ML Pen) SQ SCH ×2 (17:00→18:00)
[2021-08-30] MEDS ORDERED: traMADol 50 MG Tab PO PRN (17:59)
[2021-08-30] MEDS ORDERED: LORazepam 0.5 MG Tab PO PRN (17:59)
[2021-08-30] MEDS ORDERED: Nitroglycerin 0.4 MG Tab.SL SL PRN (18:00)
[2021-08-30] MEDS ORDERED: Acetaminophen 325 MG Tab PO PRN (18:00)
[2021-08-30] MEDS: MECLIZINE 25 MG PO SCH ×2 (18:08→23:45)
[2021-08-30] MEDS ORDERED: INSULIN GLARGINE HUM REC ANLOG 300 UNIT SQ SCH (20:00)
[2021-08-30] MEDS ORDERED: MELATONIN 5 MG PO SCH (20:00)
[2021-08-30] MEDS ORDERED: ATORVASTATIN 80 MG PO SCH (20:00)
[2021-08-30] MEDS: METOCLOPRAMIDE HCL 10 MG PO SCH (20:03)
[2021-08-30] MEDS: FAMOTIDINE 40 MG PO SCH (20:04)
[2021-08-30] MEDS: Non-Formulary Medication 1 Each (Formoterol Fumarate [Formoterol Fumarate] 20 MCG/2 ML Via INH SCH (20:05)
[2021-08-30] MEDS: Potassium Chloride 20 MEQ Tab.ER PO SCH (20:08)
[2021-08-31] MEDS: MECLIZINE 25 MG PO SCH ×2 (06:42→11:21)
[2021-08-31] MEDS: METOCLOPRAMIDE HCL 10 MG PO SCH ×2 (06:43→11:21)
[2021-08-31] MEDS ORDERED: Non-Formulary Medication 1 Each (Fluoxetine Hcl [Prozac] 20 MG Capsule) PO SCH (08:00)
[2021-08-31] MEDS ORDERED: Non-Formulary Medication 1 Each (Omeprazole [Omeprazole] 40 MG Capsule.Dr) PO SCH (08:00)
[2021-08-31] MEDS ORDERED: Non-Formulary Medication 1 Each (Gabapentin [Neurontin] 300 MG Cap) PO SCH (08:00)
[2021-08-31] MEDS ORDERED: RIVAROXABAN 10 MG PO SCH (08:00)
[2021-08-31] MEDS ORDERED: Aspirin 81 MG Tab.EC PO SCH (08:00)
[2021-08-31] MEDS ORDERED: Non-Formulary Medication 1 Each (Umeclidinium Bromide [Incruse Ellipta*] 62.5 MCG Blst.W.D IH SCH (08:00)
[2021-08-31] MEDS ORDERED: Non-Formulary Medication 1 Each (Tamsulosin [Flomax] 0.4 MG Cap.Er) PO SCH (08:00)
[2021-08-31] MEDS ORDERED: Non-Formulary Medication 1 Each (Liraglutide [Victoza] 18 MG/3 ML Pen) SQ SCH (08:00)
[2021-08-31] MEDS: FAMOTIDINE 40 MG PO SCH (09:35)
[2021-08-31] MEDS: Potassium Chloride 20 MEQ Tab.ER PO SCH (09:37)
[2021-08-31] MEDS: Non-Formulary Medication 1 Each (Formoterol Fumarate [Formoterol Fumarate] 20 MCG/2 ML Via INH SCH (09:37)
[2021-08-31 12:17] VITALS: BP 145/64; PULSE 99
[2021-08-31] MEDS ORDERED: Non-Formulary Medication 1 Each (Cyclobenzaprine [Flexeril] 10 MG Tablet) PO PRN (14:00)
== END 2021-08-31 14:17 | disposition swing bed (61) ==
LOC: LB.ED 13:34 → LB.MS 16:38
PROVIDERS: ADMIT Physician Assistant; ATTEND Physician Assistant
DX: E11.65 Type 2 diabetes mellitus with hyperglycemia (principal); I48.91 Unspecified atrial fibrillation; J44.9 Chronic obstructive pulmonary disease, unspecified; G47.30 Sleep apnea, unspecified; E78.00 Pure hypercholesterolemia, unspecified; H54.7 Unspecified visual loss; K21.9 Gastro-esophageal reflux disease without esophagitis; E86.0 Dehydration; E66.01 Morbid (severe) obesity due to excess calories; Z68.30 Body mass index [BMI] 30.0-30.9, adult; Z91.018 Allergy to other foods; Z88.8 Allergy status to other drugs, medicaments and biological substances; Z79.82 Long term (current) use of aspirin; Z79.4 Long term (current) use of insulin; Z79.899 Other long term (current) drug therapy; Z86.711 Personal history of pulmonary embolism; Z20.822 Contact with and (suspected) exposure to COVID-19
CPT/HCPCS: 36415; 70450; 80048; 80053; 81001; 82947; 83605; 84484; 85025; 93005; 97161-GP; 99285-25; A0425; A0429; A9270-GY; G0378; J1815-GY; J7030; U0002

== ENCOUNTER 2021-08-31 13:38 | Inpatient (IN) | payer MEDICARE ==
[2021-08-31] MEDS ORDERED: Non-Formulary Medication 1 Each (Cyclobenzaprine [Flexeril] 10 MG Tablet) PO PRN (14:12)
[2021-08-31] MEDS ORDERED: Non-Formulary Medication 1 Each (Rizatriptan Benzoate [Rizatriptan] 10 MG Tablet) PO PRN (14:15)
[2021-08-31] MEDS ORDERED: MECLIZINE 25 MG PO SCH (14:15)
[2021-08-31] MEDS ORDERED: TRAMADOL HCL 50 MG PO PRN (14:15)
[2021-08-31] MEDS ORDERED: LORAZEPAM 0.5 MG PO PRN (14:15)
[2021-08-31] MEDS ORDERED: [UNRECOGNIZED DRUG - OTHER] SCH (14:15)
[2021-08-31] MEDS ORDERED: LORazepam 0.5 MG Tab PO PRN (14:50)
[2021-08-31] MEDS ORDERED: Tuberculin, PPD 5 Units/0.1 ML 1 ML MDV IDERM ONE (15:37)
[2021-08-31] MEDS ORDERED: METOCLOPRAMIDE HCL 10 MG PO SCH (17:00)
[2021-08-31] MEDS: Metoclopramide 10 MG Tab PO SCH ×2 (17:04→19:42)
[2021-08-31] MEDS ORDERED: Non-Formulary Medication 1 Each (Insulin Aspart [Novolog] 100 UNIT/ML Pen) SQ SCH (18:00)
[2021-08-31] MEDS: Melatonin 10 MG Cap PO SCH (19:42)
[2021-08-31] MEDS: atorvaSTATin 80 MG Tab PO SCH (19:42)
[2021-08-31] MEDS: Famotidine 20 MG Tab PO SCH (19:42)
[2021-08-31] MEDS: Non-Formulary Medication 1 Each (Formoterol Fumarate [Formoterol Fumarate] 20 MCG/2 ML Via INH SCH (19:47)
[2021-08-31] MEDS ORDERED: Non-Formulary Medication 1 Each (Atorvastatin [Lipitor] 80 MG Tablet) PO SCH (20:00)
[2021-08-31] MEDS ORDERED: Non-Formulary Medication 1 Each (Insulin Glargine,Hum.Rec.Anlog [Toujeo Solostar] 300 UNIT SQ SCH (20:00)
[2021-08-31] MEDS ORDERED: INSULIN GLARGINE HUM REC ANLOG 300 UNIT SQ SCH (20:00)
[2021-08-31] MEDS ORDERED: Non-Formulary Medication 1 Each (Famotidine [Pepcid] 40 MG Tablet) PO SCH (20:00)
[2021-08-31] MEDS ORDERED: Non-Formulary Medication 1 Each (Melatonin [Melatonin] 5 MG Tablet) PO SCH (20:00)
[2021-09-01] MEDS: Metoclopramide 10 MG Tab PO SCH ×4 (06:20→19:40)
[2021-09-01] MEDS ORDERED: Non-Formulary Medication 1 Each (Omeprazole [Omeprazole] 40 MG Capsule.Dr) PO SCH (08:00)
[2021-09-01] MEDS ORDERED: Non-Formulary Medication 1 Each (Umeclidinium Bromide [Incruse Ellipta*] 62.5 MCG Blst.W.D IH SCH (08:00)
[2021-09-01] MEDS ORDERED: RIVAROXABAN 10 MG PO SCH (08:00)
[2021-09-01] MEDS ORDERED: Non-Formulary Medication 1 Each (Gabapentin [Neurontin] 300 MG Cap) PO SCH (08:00)
[2021-09-01] MEDS ORDERED: Non-Formulary Medication 1 Each (Tamsulosin [Flomax] 0.4 MG Cap.Er) PO SCH (08:00)
[2021-09-01] MEDS ORDERED: Non-Formulary Medication 1 Each (Fluoxetine Hcl [Prozac] 20 MG Capsule) PO SCH (08:00)
[2021-09-01] MEDS: Non-Formulary Medication 1 Each (Formoterol Fumarate [Formoterol Fumarate] 20 MCG/2 ML Via INH SCH ×2 (08:16→19:39)
[2021-09-01] MEDS: Aspirin 81 MG Tab.EC PO SCH (08:27)
[2021-09-01] MEDS: Tiotropium Inhaler 18 MCG Inhalation Powder Cap Kit of 5 INH SCH (08:27)
[2021-09-01] MEDS: Famotidine 20 MG Tab PO SCH ×2 (08:27→19:30)
[2021-09-01] MEDS: Tamsulosin 0.4 MG Cap.ER PO SCH (08:27)
[2021-09-01] MEDS: Gabapentin 300 MG Cap PO SCH (08:27)
[2021-09-01] MEDS: Non-Formulary Medication 1 Each (Liraglutide [Victoza] 18 MG/3 ML Pen) SQ SCH (08:28)
[2021-09-01] MEDS: FLUoxetine 20 MG Cap PO SCH (08:28)
[2021-09-01] MEDS: Omeprazole 20 MG Cap.CR PO SCH (08:28)
[2021-09-01] MEDS: Rivaroxaban 10 MG Tab PO SCH (08:28)
[2021-09-01] MEDS ORDERED: 50% Dextrose in Water 50 ML Syringe IVPUSH PRN (12:09)
[2021-09-01] MEDS ORDERED: Glucagon,Human Recombinant 1 MG Vial IM PRN (12:09)
[2021-09-01] MEDS: atorvaSTATin 80 MG Tab PO SCH (19:31)
[2021-09-01] MEDS: Melatonin 10 MG Cap PO SCH (19:31)
[2021-09-01] MEDS: Insulin Glargine,Human Rec. Analog 100 Units/ML 3 ML Pen SUBCUT SCH (19:36)
[2021-09-02] MEDS: Omeprazole 20 MG Cap.CR PO SCH (07:44)
[2021-09-02] MEDS: Rivaroxaban 10 MG Tab PO SCH (07:44)
[2021-09-02] MEDS: Gabapentin 300 MG Cap PO SCH (07:44)
[2021-09-02] MEDS: Tamsulosin 0.4 MG Cap.ER PO SCH (07:44)
[2021-09-02] MEDS: Metoclopramide 10 MG Tab PO SCH ×4 (07:44→19:42)
[2021-09-02] MEDS: Aspirin 81 MG Tab.EC PO SCH (07:45)
[2021-09-02] MEDS: Tiotropium Inhaler 18 MCG Inhalation Powder Cap Kit of 5 INH SCH (07:45)
[2021-09-02] MEDS: FLUoxetine 20 MG Cap PO SCH (07:45)
[2021-09-02] MEDS: Non-Formulary Medication 1 Each (Formoterol Fumarate [Formoterol Fumarate] 20 MCG/2 ML Via INH SCH ×2 (07:45→19:24)
[2021-09-02] MEDS: Famotidine 20 MG Tab PO SCH ×2 (07:45→19:42)
[2021-09-02] MEDS: Non-Formulary Medication 1 Each (Liraglutide [Victoza] 18 MG/3 ML Pen) SQ SCH (07:46)
[2021-09-02] MEDS ORDERED: Furosemide 20 MG Tab PO SCH (08:00)
[2021-09-02] MEDS ORDERED: Furosemide 20 MG Tab ONE (08:51)
[2021-09-02] MEDS: Furosemide 20 MG Tab PO SCH ×2 (08:52→11:40)
[2021-09-02] MEDS: Insulin Glargine,Human Rec. Analog 100 Units/ML 3 ML Pen SUBCUT SCH (19:30)
[2021-09-02] MEDS: atorvaSTATin 80 MG Tab PO SCH (19:42)
[2021-09-02] MEDS: Melatonin 10 MG Cap PO SCH (19:42)
[2021-09-03] MEDS: Omeprazole 20 MG Cap.CR PO SCH (08:29)
[2021-09-03] MEDS: Tiotropium Inhaler 18 MCG Inhalation Powder Cap Kit of 5 INH SCH (08:29)
[2021-09-03] MEDS: Tamsulosin 0.4 MG Cap.ER PO SCH (08:29)
[2021-09-03] MEDS: Furosemide 20 MG Tab PO SCH ×2 (08:29→12:23)
[2021-09-03] MEDS: Non-Formulary Medication 1 Each (Liraglutide [Victoza] 18 MG/3 ML Pen) SQ SCH (08:29)
[2021-09-03] MEDS: Metoclopramide 10 MG Tab PO SCH ×4 (08:29→20:00)
[2021-09-03] MEDS: Aspirin 81 MG Tab.EC PO SCH (08:30)
[2021-09-03] MEDS: Gabapentin 300 MG Cap PO SCH (08:30)
[2021-09-03] MEDS: Famotidine 20 MG Tab PO SCH ×2 (08:30→19:48)
[2021-09-03] MEDS: Rivaroxaban 10 MG Tab PO SCH (08:30)
[2021-09-03] MEDS: Non-Formulary Medication 1 Each (Formoterol Fumarate [Formoterol Fumarate] 20 MCG/2 ML Via INH SCH ×2 (08:30→19:48)
[2021-09-03] MEDS: FLUoxetine 20 MG Cap PO SCH (08:30)
[2021-09-03] MEDS: Acetaminophen 325 MG Tab PO PRN (09:44)
[2021-09-03] MEDS: atorvaSTATin 80 MG Tab PO SCH (19:48)
[2021-09-03] MEDS: Insulin Glargine,Human Rec. Analog 100 Units/ML 3 ML Pen SUBCUT SCH (19:50)
[2021-09-03] MEDS: Melatonin 10 MG Cap PO SCH (19:54)
[2021-09-04] MEDS: Non-Formulary Medication 1 Each (Formoterol Fumarate [Formoterol Fumarate] 20 MCG/2 ML Via INH SCH ×2 (07:08→19:39)
[2021-09-04] MEDS: Non-Formulary Medication 1 Each (Liraglutide [Victoza] 18 MG/3 ML Pen) SQ SCH (07:35)
[2021-09-04] MEDS: Metolazone 5 MG Tab PO SCH (07:36)
[2021-09-04] MEDS: Aspirin 81 MG Tab.EC PO SCH (07:37)
[2021-09-04] MEDS: FLUoxetine 20 MG Cap PO SCH (07:38)
[2021-09-04] MEDS: Omeprazole 20 MG Cap.CR PO SCH (07:38)
[2021-09-04] MEDS: Rivaroxaban 10 MG Tab PO SCH (07:38)
[2021-09-04] MEDS: Gabapentin 300 MG Cap PO SCH (07:38)
[2021-09-04] MEDS: Furosemide 20 MG Tab PO SCH ×2 (07:38→11:20)
[2021-09-04] MEDS: Tiotropium Inhaler 18 MCG Inhalation Powder Cap Kit of 5 INH SCH (07:38)
[2021-09-04] MEDS: Tamsulosin 0.4 MG Cap.ER PO SCH (07:38)
[2021-09-04] MEDS: Metoclopramide 10 MG Tab PO SCH ×4 (07:38→19:39)
[2021-09-04] MEDS: Famotidine 20 MG Tab PO SCH ×2 (07:44→19:40)
[2021-09-04] MEDS: Acetaminophen 325 MG Tab PO PRN (09:30)
[2021-09-04] MEDS ORDERED: Furosemide 40 MG Tab ONE (11:20)
[2021-09-04] MEDS: Melatonin 10 MG Cap PO SCH (19:39)
[2021-09-04] MEDS: atorvaSTATin 80 MG Tab PO SCH (19:39)
[2021-09-04] MEDS: Insulin Glargine,Human Rec. Analog 100 Units/ML 3 ML Pen SUBCUT SCH (19:41)
[2021-09-05] MEDS: Gabapentin 300 MG Cap PO SCH (08:06)
[2021-09-05] MEDS: Tiotropium Inhaler 18 MCG Inhalation Powder Cap Kit of 5 INH SCH (08:06)
[2021-09-05] MEDS: Metoclopramide 10 MG Tab PO SCH ×4 (08:06→19:16)
[2021-09-05] MEDS: Aspirin 81 MG Tab.EC PO SCH (08:07)
[2021-09-05] MEDS: Furosemide 20 MG Tab PO SCH ×2 (08:07→11:51)
[2021-09-05] MEDS: Rivaroxaban 10 MG Tab PO SCH (08:07)
[2021-09-05] MEDS: FLUoxetine 20 MG Cap PO SCH (08:07)
[2021-09-05] MEDS: Famotidine 20 MG Tab PO SCH ×2 (08:07→19:16)
[2021-09-05] MEDS: Tamsulosin 0.4 MG Cap.ER PO SCH (08:07)
[2021-09-05] MEDS: Non-Formulary Medication 1 Each (Formoterol Fumarate [Formoterol Fumarate] 20 MCG/2 ML Via INH SCH ×2 (08:07→19:17)
[2021-09-05] MEDS: Omeprazole 20 MG Cap.CR PO SCH (08:07)
[2021-09-05] MEDS: Non-Formulary Medication 1 Each (Liraglutide [Victoza] 18 MG/3 ML Pen) SQ SCH (08:08)
[2021-09-05] MEDS: Metoprolol Succinate 50 MG Tab.ER PO SCH (08:58)
[2021-09-05] MEDS: atorvaSTATin 80 MG Tab PO SCH (19:16)
[2021-09-05] MEDS: Melatonin 10 MG Cap PO SCH (19:16)
[2021-09-05] MEDS: Insulin Glargine,Human Rec. Analog 100 Units/ML 3 ML Pen SUBCUT SCH (19:17)
[2021-09-06] MEDS: Furosemide 20 MG Tab PO SCH ×2 (07:43→11:05)
[2021-09-06] MEDS: Omeprazole 20 MG Cap.CR PO SCH (07:43)
[2021-09-06] MEDS: Metoprolol Succinate 50 MG Tab.ER PO SCH (07:43)
[2021-09-06] MEDS: Metoclopramide 10 MG Tab PO SCH ×4 (07:44→20:15)
[2021-09-06] MEDS: Aspirin 81 MG Tab.EC PO SCH (07:44)
[2021-09-06] MEDS: Famotidine 20 MG Tab PO SCH ×2 (07:44→20:15)
[2021-09-06] MEDS: Rivaroxaban 10 MG Tab PO SCH (07:44)
[2021-09-06] MEDS: Tamsulosin 0.4 MG Cap.ER PO SCH (07:44)
[2021-09-06] MEDS: Tiotropium Inhaler 18 MCG Inhalation Powder Cap Kit of 5 INH SCH (07:44)
[2021-09-06] MEDS: Gabapentin 300 MG Cap PO SCH (07:44)
[2021-09-06] MEDS: FLUoxetine 20 MG Cap PO SCH (07:44)
[2021-09-06] MEDS: Non-Formulary Medication 1 Each (Liraglutide [Victoza] 18 MG/3 ML Pen) SQ SCH (07:44)
[2021-09-06] MEDS: Non-Formulary Medication 1 Each (Formoterol Fumarate [Formoterol Fumarate] 20 MCG/2 ML Via INH SCH ×2 (07:48→20:21)
[2021-09-06] MEDS: atorvaSTATin 80 MG Tab PO SCH (20:15)
[2021-09-06] MEDS: Melatonin 10 MG Cap PO SCH (20:16)
[2021-09-06] MEDS: Insulin Glargine,Human Rec. Analog 100 Units/ML 3 ML Pen SUBCUT SCH (20:16)
[2021-09-07] MEDS: Furosemide 20 MG Tab PO SCH ×2 (07:15→10:39)
[2021-09-07] MEDS: Metoclopramide 10 MG Tab PO SCH ×4 (07:16→19:20)
[2021-09-07] MEDS: Aspirin 81 MG Tab.EC PO SCH (07:16)
[2021-09-07] MEDS: Omeprazole 20 MG Cap.CR PO SCH (07:16)
[2021-09-07] MEDS: FLUoxetine 20 MG Cap PO SCH (07:17)
[2021-09-07] MEDS: Tamsulosin 0.4 MG Cap.ER PO SCH (07:17)
[2021-09-07] MEDS: Famotidine 20 MG Tab PO SCH ×2 (07:17→19:20)
[2021-09-07] MEDS: Rivaroxaban 10 MG Tab PO SCH (07:17)
[2021-09-07] MEDS: Gabapentin 300 MG Cap PO SCH (07:17)
[2021-09-07] MEDS: Tiotropium Inhaler 18 MCG Inhalation Powder Cap Kit of 5 INH SCH (07:23)
[2021-09-07] MEDS: Non-Formulary Medication 1 Each (Formoterol Fumarate [Formoterol Fumarate] 20 MCG/2 ML Via INH SCH ×2 (07:26→20:00)
[2021-09-07] MEDS: Metolazone 5 MG Tab PO SCH (07:27)
[2021-09-07] MEDS: Non-Formulary Medication 1 Each (Liraglutide [Victoza] 18 MG/3 ML Pen) SQ SCH (07:56)
[2021-09-07] MEDS: Metoprolol Succinate 50 MG Tab.ER PO SCH (07:57)
[2021-09-07] MEDS: Acetaminophen 325 MG Tab PO PRN (11:09)
[2021-09-07] MEDS: Melatonin 10 MG Cap PO SCH (19:20)
[2021-09-07] MEDS: atorvaSTATin 80 MG Tab PO SCH (19:20)
[2021-09-07] MEDS: Insulin Glargine,Human Rec. Analog 100 Units/ML 3 ML Pen SUBCUT SCH (19:21)
[2021-09-08] MEDS: Metoclopramide 10 MG Tab PO SCH ×4 (07:14→19:16)
[2021-09-08] MEDS: Tamsulosin 0.4 MG Cap.ER PO SCH (08:23)
[2021-09-08] MEDS: Non-Formulary Medication 1 Each (Liraglutide [Victoza] 18 MG/3 ML Pen) SQ SCH (08:24)
[2021-09-08] MEDS: Aspirin 81 MG Tab.EC PO SCH (08:24)
[2021-09-08] MEDS: Furosemide 20 MG Tab PO SCH ×2 (08:24→12:10)
[2021-09-08] MEDS: Gabapentin 300 MG Cap PO SCH (08:25)
[2021-09-08] MEDS: Omeprazole 20 MG Cap.CR PO SCH (08:25)
[2021-09-08] MEDS: Metoprolol Succinate 50 MG Tab.ER PO SCH (08:27)
[2021-09-08] MEDS: FLUoxetine 20 MG Cap PO SCH (08:27)
[2021-09-08] MEDS: Tiotropium Inhaler 18 MCG Inhalation Powder Cap Kit of 5 INH SCH (08:27)
[2021-09-08] MEDS: Famotidine 20 MG Tab PO SCH ×2 (08:27→19:15)
[2021-09-08] MEDS: Rivaroxaban 10 MG Tab PO SCH (08:28)
[2021-09-08] MEDS: Non-Formulary Medication 1 Each (Formoterol Fumarate [Formoterol Fumarate] 20 MCG/2 ML Via INH SCH ×2 (08:34→19:16)
[2021-09-08] MEDS: Acetaminophen 325 MG Tab PO PRN (12:56)
[2021-09-08] MEDS: traMADol 50 MG Tab PO PRN (14:31)
[2021-09-08] MEDS: Cyclobenzaprine 10 MG Tab PO PRN (16:17)
[2021-09-08] MEDS: Melatonin 10 MG Cap PO SCH (19:15)
[2021-09-08] MEDS: atorvaSTATin 80 MG Tab PO SCH (19:16)
[2021-09-08] MEDS: Insulin Glargine,Human Rec. Analog 100 Units/ML 3 ML Pen SUBCUT SCH (19:17)
[2021-09-09] MEDS: traMADol 50 MG Tab PO PRN ×3 (02:16→19:39)
[2021-09-09] MEDS: Cyclobenzaprine 10 MG Tab PO PRN ×2 (05:37→19:38)
[2021-09-09] MEDS: Metoclopramide 10 MG Tab PO SCH ×4 (06:05→19:39)
[2021-09-09] MEDS: Furosemide 20 MG Tab PO SCH ×2 (08:15→10:50)
[2021-09-09] MEDS: Aspirin 81 MG Tab.EC PO SCH (08:15)
[2021-09-09] MEDS: Non-Formulary Medication 1 Each (Formoterol Fumarate [Formoterol Fumarate] 20 MCG/2 ML Via INH SCH ×2 (08:15→20:54)
[2021-09-09] MEDS: Tamsulosin 0.4 MG Cap.ER PO SCH (08:15)
[2021-09-09] MEDS: Non-Formulary Medication 1 Each (Liraglutide [Victoza] 18 MG/3 ML Pen) SQ SCH (08:15)
[2021-09-09] MEDS: Gabapentin 300 MG Cap PO SCH (08:17)
[2021-09-09] MEDS: Famotidine 20 MG Tab PO SCH ×2 (08:17→19:38)
[2021-09-09] MEDS: Omeprazole 20 MG Cap.CR PO SCH (08:17)
[2021-09-09] MEDS: Rivaroxaban 10 MG Tab PO SCH (08:18)
[2021-09-09] MEDS: Tiotropium Inhaler 18 MCG Inhalation Powder Cap Kit of 5 INH SCH (08:18)
[2021-09-09] MEDS: FLUoxetine 20 MG Cap PO SCH (08:18)
[2021-09-09] MEDS: Metoprolol Succinate 50 MG Tab.ER PO SCH (08:18)
[2021-09-09] MEDS ORDERED: Potassium Chloride 10% 20 MEQ/15 ML Soln 15 ML UD Cup PO ONE ×2 (12:00→16:38)
[2021-09-09] MEDS: Insulin Glargine,Human Rec. Analog 100 Units/ML 3 ML Pen SUBCUT SCH (19:30)
[2021-09-09] MEDS: atorvaSTATin 80 MG Tab PO SCH (19:39)
[2021-09-09] MEDS: Melatonin 10 MG Cap PO SCH (19:39)
[2021-09-09] MEDS ORDERED: Potassium Chloride 10% 20 MEQ/15 ML Soln 15 ML UD Cup PO SCH ×2 (20:00→22:00)
[2021-09-10] MEDS: Tamsulosin 0.4 MG Cap.ER PO SCH (07:46)
[2021-09-10] MEDS: Aspirin 81 MG Tab.EC PO SCH (07:46)
[2021-09-10] MEDS: Metoclopramide 10 MG Tab PO SCH ×4 (07:46→19:04)
[2021-09-10] MEDS: Non-Formulary Medication 1 Each (Liraglutide [Victoza] 18 MG/3 ML Pen) SQ SCH (07:46)
[2021-09-10] MEDS: Gabapentin 300 MG Cap PO SCH (07:46)
[2021-09-10] MEDS: Omeprazole 20 MG Cap.CR PO SCH (07:47)
[2021-09-10] MEDS: FLUoxetine 20 MG Cap PO SCH (07:47)
[2021-09-10] MEDS: Tiotropium Inhaler 18 MCG Inhalation Powder Cap Kit of 5 INH SCH (07:47)
[2021-09-10] MEDS: Metoprolol Succinate 50 MG Tab.ER PO SCH (07:47)
[2021-09-10] MEDS: Famotidine 20 MG Tab PO SCH ×2 (07:47→19:04)
[2021-09-10] MEDS: Rivaroxaban 10 MG Tab PO SCH (07:51)
[2021-09-10] MEDS: Furosemide 20 MG Tab PO SCH (07:52)
[2021-09-10] MEDS: Non-Formulary Medication 1 Each (Formoterol Fumarate [Formoterol Fumarate] 20 MCG/2 ML Via INH SCH ×2 (07:52→19:02)
[2021-09-10] MEDS ORDERED: Docusate Sodium 100 MG Cap PO PRN (09:00)
[2021-09-10] MEDS ORDERED: Bisacodyl 10 MG Supp RECTAL PRN (09:01)
[2021-09-10] MEDS: Potassium Chloride 10% 20 MEQ/15 ML Soln 15 ML UD Cup PO SCH ×3 (09:30→16:43)
[2021-09-10] MEDS: Psyllium Husk Powder Sugar Free 5.85 GM Packet PO SCH (09:30)
[2021-09-10] MEDS: Cyclobenzaprine 10 MG Tab PO PRN ×2 (10:49→19:16)
[2021-09-10] MEDS: Melatonin 10 MG Cap PO SCH (19:04)
[2021-09-10] MEDS: atorvaSTATin 80 MG Tab PO SCH (19:04)
[2021-09-10] MEDS: Docusate Sodium 100 MG Cap PO SCH (19:05)
[2021-09-10] MEDS: Insulin Glargine,Human Rec. Analog 100 Units/ML 3 ML Pen SUBCUT SCH (19:07)
[2021-09-11] MEDS: Metoclopramide 10 MG Tab PO SCH ×4 (07:59→20:17)
[2021-09-11] MEDS: Docusate Sodium 100 MG Cap PO SCH ×2 (08:00→20:17)
[2021-09-11] MEDS: Non-Formulary Medication 1 Each (Formoterol Fumarate [Formoterol Fumarate] 20 MCG/2 ML Via INH SCH ×2 (08:01→20:13)
[2021-09-11] MEDS: Aspirin 81 MG Tab.EC PO SCH (08:01)
[2021-09-11] MEDS: Tamsulosin 0.4 MG Cap.ER PO SCH (08:01)
[2021-09-11] MEDS: Furosemide 20 MG Tab PO SCH ×2 (08:02→11:47)
[2021-09-11] MEDS: Non-Formulary Medication 1 Each (Liraglutide [Victoza] 18 MG/3 ML Pen) SQ SCH (08:02)
[2021-09-11] MEDS: Gabapentin 300 MG Cap PO SCH (08:03)
[2021-09-11] MEDS: Psyllium Husk Powder Sugar Free 5.85 GM Packet PO SCH (08:03)
[2021-09-11] MEDS: FLUoxetine 20 MG Cap PO SCH (08:04)
[2021-09-11] MEDS: Famotidine 20 MG Tab PO SCH ×2 (08:04→20:17)
[2021-09-11] MEDS: Omeprazole 20 MG Cap.CR PO SCH (08:04)
[2021-09-11] MEDS: Tiotropium Inhaler 18 MCG Inhalation Powder Cap Kit of 5 INH SCH (08:05)
[2021-09-11] MEDS: Metoprolol Succinate 50 MG Tab.ER PO SCH (08:06)
[2021-09-11] MEDS: Rivaroxaban 10 MG Tab PO SCH (08:07)
[2021-09-11] MEDS: Metolazone 5 MG Tab PO SCH (08:08)
[2021-09-11] MEDS: Potassium Chloride 20 MEQ Tab.ER PO SCH ×2 (09:10→20:17)
[2021-09-11] MEDS: Acetaminophen 325 MG Tab PO PRN (09:28)
[2021-09-11] MEDS: Melatonin 10 MG Cap PO SCH (20:17)
[2021-09-11] MEDS: atorvaSTATin 80 MG Tab PO SCH (20:17)
[2021-09-11] MEDS: Insulin Glargine,Human Rec. Analog 100 Units/ML 3 ML Pen SUBCUT SCH (20:26)
[2021-09-11] MEDS: Cyclobenzaprine 10 MG Tab PO PRN (23:29)
[2021-09-12] MEDS: traMADol 50 MG Tab PO PRN ×2 (02:19→10:48)
[2021-09-12] MEDS: Tiotropium Inhaler 18 MCG Inhalation Powder Cap Kit of 5 INH SCH (08:10)
[2021-09-12] MEDS: Furosemide 20 MG Tab PO SCH ×2 (08:10→10:48)
[2021-09-12] MEDS: Metoprolol Succinate 50 MG Tab.ER PO SCH (08:10)
[2021-09-12] MEDS: FLUoxetine 20 MG Cap PO SCH (08:10)
[2021-09-12] MEDS: Omeprazole 20 MG Cap.CR PO SCH (08:10)
[2021-09-12] MEDS: Non-Formulary Medication 1 Each (Liraglutide [Victoza] 18 MG/3 ML Pen) SQ SCH (08:10)
[2021-09-12] MEDS: Docusate Sodium 100 MG Cap PO SCH ×2 (08:10→19:31)
[2021-09-12] MEDS: Psyllium Husk Powder Sugar Free 5.85 GM Packet PO SCH (08:10)
[2021-09-12] MEDS: Tamsulosin 0.4 MG Cap.ER PO SCH (08:11)
[2021-09-12] MEDS: Famotidine 20 MG Tab PO SCH ×2 (08:11→19:31)
[2021-09-12] MEDS: Rivaroxaban 10 MG Tab PO SCH (08:11)
[2021-09-12] MEDS: Metoclopramide 10 MG Tab PO SCH ×4 (08:11→19:31)
[2021-09-12] MEDS: Aspirin 81 MG Tab.EC PO SCH (08:11)
[2021-09-12] MEDS: Potassium Chloride 20 MEQ Tab.ER PO SCH ×4 (08:11→19:31)
[2021-09-12] MEDS: Gabapentin 300 MG Cap PO SCH (08:11)
[2021-09-12] MEDS: Non-Formulary Medication 1 Each (Formoterol Fumarate [Formoterol Fumarate] 20 MCG/2 ML Via INH SCH ×2 (08:14→20:16)
[2021-09-12] MEDS: Acetaminophen 325 MG Tab PO PRN (16:53)
[2021-09-12] MEDS: Insulin Glargine,Human Rec. Analog 100 Units/ML 3 ML Pen SUBCUT SCH (19:27)
[2021-09-12] MEDS: Melatonin 10 MG Cap PO SCH (19:31)
[2021-09-12] MEDS: atorvaSTATin 80 MG Tab PO SCH (19:31)
[2021-09-13] MEDS: Psyllium Husk Powder Sugar Free 5.85 GM Packet PO SCH (07:50)
[2021-09-13] MEDS: FLUoxetine 20 MG Cap PO SCH (07:51)
[2021-09-13] MEDS: Non-Formulary Medication 1 Each (Liraglutide [Victoza] 18 MG/3 ML Pen) SQ SCH (07:51)
[2021-09-13] MEDS: Tiotropium Inhaler 18 MCG Inhalation Powder Cap Kit of 5 INH SCH (07:51)
[2021-09-13] MEDS: Gabapentin 300 MG Cap PO SCH (07:52)
[2021-09-13] MEDS: Rivaroxaban 10 MG Tab PO SCH (07:52)
[2021-09-13] MEDS: Potassium Chloride 20 MEQ Tab.ER PO SCH ×4 (07:52→19:34)
[2021-09-13] MEDS: Famotidine 20 MG Tab PO SCH ×2 (07:52→19:33)
[2021-09-13] MEDS: Aspirin 81 MG Tab.EC PO SCH (07:52)
[2021-09-13] MEDS: Metoclopramide 10 MG Tab PO SCH ×4 (07:52→19:33)
[2021-09-13] MEDS: Tamsulosin 0.4 MG Cap.ER PO SCH (07:52)
[2021-09-13] MEDS: Metoprolol Succinate 50 MG Tab.ER PO SCH (07:53)
[2021-09-13] MEDS: Omeprazole 20 MG Cap.CR PO SCH (07:53)
[2021-09-13] MEDS: Furosemide 20 MG Tab PO SCH ×2 (07:53→11:23)
[2021-09-13] MEDS: Docusate Sodium 100 MG Cap PO SCH ×2 (07:54→19:34)
[2021-09-13] MEDS: Non-Formulary Medication 1 Each (Formoterol Fumarate [Formoterol Fumarate] 20 MCG/2 ML Via INH SCH ×2 (07:54→19:46)
[2021-09-13] MEDS: traMADol 50 MG Tab PO PRN (13:05)
[2021-09-13] MEDS: Melatonin 10 MG Cap PO SCH (19:33)
[2021-09-13] MEDS: atorvaSTATin 80 MG Tab PO SCH (19:34)
[2021-09-13] MEDS: Insulin Glargine,Human Rec. Analog 100 Units/ML 3 ML Pen SUBCUT SCH (19:38)
[2021-09-14] MEDS: Tiotropium Inhaler 18 MCG Inhalation Powder Cap Kit of 5 INH SCH (08:21)
[2021-09-14] MEDS: Metolazone 5 MG Tab PO SCH (08:21)
[2021-09-14] MEDS: Psyllium Husk Powder Sugar Free 5.85 GM Packet PO SCH (08:21)
[2021-09-14] MEDS: Non-Formulary Medication 1 Each (Liraglutide [Victoza] 18 MG/3 ML Pen) SQ SCH (08:21)
[2021-09-14] MEDS: Famotidine 20 MG Tab PO SCH ×2 (08:22→19:38)
[2021-09-14] MEDS: Omeprazole 20 MG Cap.CR PO SCH (08:22)
[2021-09-14] MEDS: FLUoxetine 20 MG Cap PO SCH (08:22)
[2021-09-14] MEDS: Docusate Sodium 100 MG Cap PO SCH ×2 (08:22→19:38)
[2021-09-14] MEDS: Tamsulosin 0.4 MG Cap.ER PO SCH (08:23)
[2021-09-14] MEDS: Furosemide 20 MG Tab PO SCH ×2 (08:24→11:17)
[2021-09-14] MEDS: Gabapentin 300 MG Cap PO SCH (08:24)
[2021-09-14] MEDS: Metoclopramide 10 MG Tab PO SCH ×4 (08:24→19:38)
[2021-09-14] MEDS: Potassium Chloride 20 MEQ Tab.ER PO SCH ×4 (08:25→19:38)
[2021-09-14] MEDS: Aspirin 81 MG Tab.EC PO SCH (08:25)
[2021-09-14] MEDS: Rivaroxaban 10 MG Tab PO SCH (08:25)
[2021-09-14] MEDS: Metoprolol Succinate 50 MG Tab.ER PO SCH (08:25)
[2021-09-14] MEDS: Non-Formulary Medication 1 Each (Formoterol Fumarate [Formoterol Fumarate] 20 MCG/2 ML Via INH SCH ×2 (08:26→19:40)
[2021-09-14] MEDS: Acetaminophen 325 MG Tab PO PRN (11:16)
[2021-09-14] MEDS: Insulin Glargine,Human Rec. Analog 100 Units/ML 3 ML Pen SUBCUT SCH (19:38)
[2021-09-14] MEDS: Melatonin 10 MG Cap PO SCH (19:38)
[2021-09-14] MEDS: atorvaSTATin 80 MG Tab PO SCH (19:38)
[2021-09-15] MEDS: FLUoxetine 20 MG Cap PO SCH (08:47)
[2021-09-15] MEDS: Omeprazole 20 MG Cap.CR PO SCH (08:47)
[2021-09-15] MEDS: Metoclopramide 10 MG Tab PO SCH ×4 (08:47→19:48)
[2021-09-15] MEDS: Aspirin 81 MG Tab.EC PO SCH (08:48)
[2021-09-15] MEDS: Potassium Chloride 20 MEQ Tab.ER PO SCH ×4 (08:48→19:49)
[2021-09-15] MEDS: Gabapentin 300 MG Cap PO SCH (08:49)
[2021-09-15] MEDS: Metoprolol Succinate 50 MG Tab.ER PO SCH (08:49)
[2021-09-15] MEDS: Tamsulosin 0.4 MG Cap.ER PO SCH (08:49)
[2021-09-15] MEDS: Rivaroxaban 10 MG Tab PO SCH (08:49)
[2021-09-15] MEDS: Furosemide 20 MG Tab PO SCH ×2 (08:50→12:23)
[2021-09-15] MEDS: Tiotropium Inhaler 18 MCG Inhalation Powder Cap Kit of 5 INH SCH (08:50)
[2021-09-15] MEDS: Famotidine 20 MG Tab PO SCH ×2 (08:51→19:49)
[2021-09-15] MEDS: Docusate Sodium 100 MG Cap PO SCH ×2 (08:51→19:49)
[2021-09-15] MEDS: Psyllium Husk Powder Sugar Free 5.85 GM Packet PO SCH (08:54)
[2021-09-15] MEDS ORDERED: Tiotropium Inhaler 18 MCG Inhalation Powder Cap Kit of 5 ONE (08:59)
[2021-09-15] MEDS: Non-Formulary Medication 1 Each (Formoterol Fumarate [Formoterol Fumarate] 20 MCG/2 ML Via INH SCH ×2 (08:59→19:49)
[2021-09-15] MEDS: Non-Formulary Medication 1 Each (Liraglutide [Victoza] 18 MG/3 ML Pen) SQ SCH (09:01)
[2021-09-15] MEDS: atorvaSTATin 80 MG Tab PO SCH (19:48)
[2021-09-15] MEDS: Melatonin 10 MG Cap PO SCH (19:49)
[2021-09-15] MEDS: Insulin Glargine,Human Rec. Analog 100 Units/ML 3 ML Pen SUBCUT SCH (19:57)
[2021-09-16] MEDS: Docusate Sodium 100 MG Cap PO SCH ×2 (07:47→19:48)
[2021-09-16] MEDS: Metoclopramide 10 MG Tab PO SCH ×4 (07:47→19:49)
[2021-09-16] MEDS: Famotidine 20 MG Tab PO SCH ×2 (07:48→19:51)
[2021-09-16] MEDS: Aspirin 81 MG Tab.EC PO SCH (07:49)
[2021-09-16] MEDS: Gabapentin 300 MG Cap PO SCH (07:50)
[2021-09-16] MEDS: Metoprolol Succinate 50 MG Tab.ER PO SCH (07:50)
[2021-09-16] MEDS: Furosemide 20 MG Tab PO SCH ×2 (07:50→11:09)
[2021-09-16] MEDS: FLUoxetine 20 MG Cap PO SCH (07:51)
[2021-09-16] MEDS: Tamsulosin 0.4 MG Cap.ER PO SCH (07:59)
[2021-09-16] MEDS: Omeprazole 20 MG Cap.CR PO SCH (07:59)
[2021-09-16] MEDS: Potassium Chloride 20 MEQ Tab.ER PO SCH ×4 (07:59→19:51)
[2021-09-16] MEDS: Non-Formulary Medication 1 Each (Formoterol Fumarate [Formoterol Fumarate] 20 MCG/2 ML Via INH SCH ×2 (07:59→19:52)
[2021-09-16] MEDS: Rivaroxaban 10 MG Tab PO SCH (08:00)
[2021-09-16] MEDS: Tiotropium Inhaler 18 MCG Inhalation Powder Cap Kit of 5 INH SCH (08:00)
[2021-09-16] MEDS: Non-Formulary Medication 1 Each (Liraglutide [Victoza] 18 MG/3 ML Pen) SQ SCH (08:01)
[2021-09-16] MEDS: Psyllium Husk Powder Sugar Free 5.85 GM Packet PO SCH (08:01)
[2021-09-16] MEDS: Melatonin 10 MG Cap PO SCH (19:51)
[2021-09-16] MEDS: atorvaSTATin 80 MG Tab PO SCH (19:53)
[2021-09-16] MEDS: Insulin Glargine,Human Rec. Analog 100 Units/ML 3 ML Pen SUBCUT SCH (19:54)
[2021-09-17] MEDS: Metoclopramide 10 MG Tab PO SCH ×4 (07:12→20:01)
[2021-09-17] MEDS: Psyllium Husk Powder Sugar Free 5.85 GM Packet PO SCH (07:40)
[2021-09-17] MEDS: Omeprazole 20 MG Cap.CR PO SCH (07:41)
[2021-09-17] MEDS: Potassium Chloride 20 MEQ Tab.ER PO SCH ×4 (07:41→19:29)
[2021-09-17] MEDS: Aspirin 81 MG Tab.EC PO SCH (07:41)
[2021-09-17] MEDS: FLUoxetine 20 MG Cap PO SCH (07:41)
[2021-09-17] MEDS: Famotidine 20 MG Tab PO SCH ×2 (07:41→19:28)
[2021-09-17] MEDS: Rivaroxaban 10 MG Tab PO SCH (07:41)
[2021-09-17] MEDS: Tamsulosin 0.4 MG Cap.ER PO SCH (07:41)
[2021-09-17] MEDS: Gabapentin 300 MG Cap PO SCH (07:42)
[2021-09-17] MEDS: Furosemide 20 MG Tab PO SCH ×2 (07:42→11:12)
[2021-09-17] MEDS: Metoprolol Succinate 50 MG Tab.ER PO SCH (07:42)
[2021-09-17] MEDS: Docusate Sodium 100 MG Cap PO SCH ×2 (07:44→19:30)
[2021-09-17] MEDS: Tiotropium Inhaler 18 MCG Inhalation Powder Cap Kit of 5 INH SCH (07:47)
[2021-09-17] MEDS: Non-Formulary Medication 1 Each (Liraglutide [Victoza] 18 MG/3 ML Pen) SQ SCH (07:48)
[2021-09-17] MEDS: Nystatin Topical Powder 15 GM Bottle TOP SCH ×2 (10:40→20:01)
[2021-09-17] MEDS: Non-Formulary Medication 1 Each (Formoterol Fumarate [Formoterol Fumarate] 20 MCG/2 ML Via INH SCH ×2 (11:08→19:30)
[2021-09-17] MEDS: atorvaSTATin 80 MG Tab PO SCH (19:28)
[2021-09-17] MEDS: Melatonin 10 MG Cap PO SCH (19:29)
[2021-09-17] MEDS: Insulin Glargine,Human Rec. Analog 100 Units/ML 3 ML Pen SUBCUT SCH (19:31)
[2021-09-17] MEDS: Acetaminophen 325 MG Tab PO PRN (19:38)
[2021-09-18] MEDS: Metolazone 5 MG Tab PO SCH (08:14)
[2021-09-18] MEDS: Furosemide 20 MG Tab PO SCH ×2 (08:15→11:00)
[2021-09-18] MEDS: Aspirin 81 MG Tab.EC PO SCH (08:15)
[2021-09-18] MEDS: Tamsulosin 0.4 MG Cap.ER PO SCH (08:15)
[2021-09-18] MEDS: Famotidine 20 MG Tab PO SCH ×2 (08:15→19:37)
[2021-09-18] MEDS: Omeprazole 20 MG Cap.CR PO SCH (08:15)
[2021-09-18] MEDS: Psyllium Husk Powder Sugar Free 5.85 GM Packet PO SCH (08:16)
[2021-09-18] MEDS: Gabapentin 300 MG Cap PO SCH (08:16)
[2021-09-18] MEDS: Metoprolol Succinate 50 MG Tab.ER PO SCH (08:16)
[2021-09-18] MEDS: Metoclopramide 10 MG Tab PO SCH ×4 (08:17→19:38)
[2021-09-18] MEDS: FLUoxetine 20 MG Cap PO SCH (08:17)
[2021-09-18] MEDS: Potassium Chloride 20 MEQ Tab.ER PO SCH ×4 (08:17→19:39)
[2021-09-18] MEDS: Docusate Sodium 100 MG Cap PO SCH ×2 (08:17→19:37)
[2021-09-18] MEDS: Rivaroxaban 10 MG Tab PO SCH (08:17)
[2021-09-18] MEDS: Nystatin Topical Powder 15 GM Bottle TOP SCH (08:21)
[2021-09-18] MEDS: Non-Formulary Medication 1 Each (Liraglutide [Victoza] 18 MG/3 ML Pen) SQ SCH (08:21)
[2021-09-18] MEDS: Tiotropium Inhaler 18 MCG Inhalation Powder Cap Kit of 5 INH SCH (08:22)
[2021-09-18] MEDS: Non-Formulary Medication 1 Each (Formoterol Fumarate [Formoterol Fumarate] 20 MCG/2 ML Via INH SCH ×2 (08:25→19:41)
[2021-09-18] MEDS: traMADol 50 MG Tab PO PRN (11:10)
[2021-09-18] MEDS: Melatonin 10 MG Cap PO SCH (19:38)
[2021-09-18] MEDS: atorvaSTATin 80 MG Tab PO SCH (19:38)
[2021-09-18] MEDS: Insulin Glargine,Human Rec. Analog 100 Units/ML 3 ML Pen SUBCUT SCH (19:48)
[2021-09-19] MEDS: Rivaroxaban 10 MG Tab PO SCH (08:05)
[2021-09-19] MEDS: Psyllium Husk Powder Sugar Free 5.85 GM Packet PO SCH (08:05)
[2021-09-19] MEDS: Omeprazole 20 MG Cap.CR PO SCH (08:05)
[2021-09-19] MEDS: Gabapentin 300 MG Cap PO SCH (08:06)
[2021-09-19] MEDS: Tiotropium Inhaler 18 MCG Inhalation Powder Cap Kit of 5 INH SCH (08:06)
[2021-09-19] MEDS: Famotidine 20 MG Tab PO SCH ×2 (08:06→19:47)
[2021-09-19] MEDS: FLUoxetine 20 MG Cap PO SCH (08:07)
[2021-09-19] MEDS: Metoclopramide 10 MG Tab PO SCH ×4 (08:07→19:48)
[2021-09-19] MEDS: Docusate Sodium 100 MG Cap PO SCH ×2 (08:08→19:47)
[2021-09-19] MEDS: Tamsulosin 0.4 MG Cap.ER PO SCH (08:08)
[2021-09-19] MEDS: Furosemide 20 MG Tab PO SCH ×2 (08:08→10:24)
[2021-09-19] MEDS: Metoprolol Succinate 50 MG Tab.ER PO SCH (08:08)
[2021-09-19] MEDS: Potassium Chloride 20 MEQ Tab.ER PO SCH ×4 (08:08→19:47)
[2021-09-19] MEDS: Aspirin 81 MG Tab.EC PO SCH (08:08)
[2021-09-19] MEDS: Nystatin Topical Powder 15 GM Bottle TOP SCH ×3 (08:11→21:05)
[2021-09-19] MEDS: Non-Formulary Medication 1 Each (Formoterol Fumarate [Formoterol Fumarate] 20 MCG/2 ML Via INH SCH ×2 (08:27→21:05)
[2021-09-19] MEDS: Non-Formulary Medication 1 Each (Liraglutide [Victoza] 18 MG/3 ML Pen) SQ SCH (10:08)
[2021-09-19] MEDS: traMADol 50 MG Tab PO PRN (10:27)
[2021-09-19] MEDS: Melatonin 10 MG Cap PO SCH (19:47)
[2021-09-19] MEDS: Insulin Glargine,Human Rec. Analog 100 Units/ML 3 ML Pen SUBCUT SCH (19:48)
[2021-09-19] MEDS: atorvaSTATin 80 MG Tab PO SCH (19:48)
[2021-09-20] MEDS: Furosemide 20 MG Tab PO SCH ×2 (08:19→11:35)
[2021-09-20] MEDS: Omeprazole 20 MG Cap.CR PO SCH (08:19)
[2021-09-20] MEDS: Famotidine 20 MG Tab PO SCH ×2 (08:20→19:46)
[2021-09-20] MEDS: Rivaroxaban 10 MG Tab PO SCH (08:20)
[2021-09-20] MEDS: Docusate Sodium 100 MG Cap PO SCH ×2 (08:20→19:34)
[2021-09-20] MEDS: Potassium Chloride 20 MEQ Tab.ER PO SCH ×4 (08:21→19:33)
[2021-09-20] MEDS: Tamsulosin 0.4 MG Cap.ER PO SCH (08:21)
[2021-09-20] MEDS: FLUoxetine 20 MG Cap PO SCH (08:22)
[2021-09-20] MEDS: Gabapentin 300 MG Cap PO SCH (08:22)
[2021-09-20] MEDS: Metoprolol Succinate 50 MG Tab.ER PO SCH (08:22)
[2021-09-20] MEDS: Aspirin 81 MG Tab.EC PO SCH (08:23)
[2021-09-20] MEDS: Metoclopramide 10 MG Tab PO SCH ×4 (08:23→19:33)
[2021-09-20] MEDS: Non-Formulary Medication 1 Each (Formoterol Fumarate [Formoterol Fumarate] 20 MCG/2 ML Via INH SCH ×2 (08:24→19:46)
[2021-09-20] MEDS: Psyllium Husk Powder Sugar Free 5.85 GM Packet PO SCH (08:24)
[2021-09-20] MEDS: Nystatin Topical Powder 15 GM Bottle TOP SCH ×2 (08:24→19:34)
[2021-09-20] MEDS: Non-Formulary Medication 1 Each (Liraglutide [Victoza] 18 MG/3 ML Pen) SQ SCH (08:25)
[2021-09-20] MEDS: Tiotropium Inhaler 18 MCG Inhalation Powder Cap Kit of 5 INH SCH (08:25)
[2021-09-20] MEDS: traMADol 50 MG Tab PO PRN ×2 (10:18→19:33)
[2021-09-20] MEDS: Melatonin 10 MG Cap PO SCH (19:33)
[2021-09-20] MEDS: atorvaSTATin 80 MG Tab PO SCH (19:34)
[2021-09-20] MEDS: Insulin Glargine,Human Rec. Analog 100 Units/ML 3 ML Pen SUBCUT SCH (19:36)
[2021-09-21] MEDS: Omeprazole 20 MG Cap.CR PO SCH (07:57)
[2021-09-21] MEDS: Metoclopramide 10 MG Tab PO SCH ×4 (07:58→19:49)
[2021-09-21] MEDS: Rivaroxaban 10 MG Tab PO SCH (07:58)
[2021-09-21] MEDS: Tamsulosin 0.4 MG Cap.ER PO SCH (07:58)
[2021-09-21] MEDS: Famotidine 20 MG Tab PO SCH ×2 (07:59→19:48)
[2021-09-21] MEDS: Potassium Chloride 20 MEQ Tab.ER PO SCH ×6 (07:59→21:01)
[2021-09-21] MEDS: Docusate Sodium 100 MG Cap PO SCH ×2 (08:00→19:49)
[2021-09-21] MEDS: Aspirin 81 MG Tab.EC PO SCH (08:00)
[2021-09-21] MEDS: FLUoxetine 20 MG Cap PO SCH (08:00)
[2021-09-21] MEDS: Psyllium Husk Powder Sugar Free 5.85 GM Packet PO SCH (08:01)
[2021-09-21] MEDS: Non-Formulary Medication 1 Each (Formoterol Fumarate [Formoterol Fumarate] 20 MCG/2 ML Via INH SCH ×2 (08:01→19:33)
[2021-09-21] MEDS: Gabapentin 300 MG Cap PO SCH (08:02)
[2021-09-21] MEDS: Nystatin Topical Powder 15 GM Bottle TOP SCH ×2 (08:02→20:01)
[2021-09-21] MEDS: Furosemide 20 MG Tab PO SCH ×2 (08:02→10:22)
[2021-09-21] MEDS: Non-Formulary Medication 1 Each (Liraglutide [Victoza] 18 MG/3 ML Pen) SQ SCH (08:02)
[2021-09-21] MEDS: Metolazone 5 MG Tab PO SCH (08:03)
[2021-09-21] MEDS: Tiotropium Inhaler 18 MCG Inhalation Powder Cap Kit of 5 INH SCH (08:03)
[2021-09-21] MEDS: Metoprolol Succinate 50 MG Tab.ER PO SCH (08:04)
[2021-09-21] MEDS: Acetaminophen 325 MG Tab PO PRN ×2 (10:21→16:58)
[2021-09-21] MEDS: atorvaSTATin 80 MG Tab PO SCH (19:49)
[2021-09-21] MEDS: Melatonin 10 MG Cap PO SCH (19:49)
[2021-09-21] MEDS: Insulin Glargine,Human Rec. Analog 100 Units/ML 3 ML Pen SUBCUT SCH (19:52)
[2021-09-22] MEDS: traMADol 50 MG Tab PO PRN (04:11)
[2021-09-22] MEDS: Psyllium Husk Powder Sugar Free 5.85 GM Packet PO SCH (08:11)
[2021-09-22] MEDS: Non-Formulary Medication 1 Each (Liraglutide [Victoza] 18 MG/3 ML Pen) SQ SCH (08:11)
[2021-09-22] MEDS: Potassium Chloride 20 MEQ Tab.ER PO SCH ×4 (08:13→19:39)
[2021-09-22] MEDS: Famotidine 20 MG Tab PO SCH ×2 (08:13→19:39)
[2021-09-22] MEDS: FLUoxetine 20 MG Cap PO SCH (08:14)
[2021-09-22] MEDS: Rivaroxaban 10 MG Tab PO SCH (08:14)
[2021-09-22] MEDS: Aspirin 81 MG Tab.EC PO SCH (08:14)
[2021-09-22] MEDS: Spironolactone 25 MG Tab PO SCH (08:14)
[2021-09-22] MEDS: Metoclopramide 10 MG Tab PO SCH ×4 (08:14→20:28)
[2021-09-22] MEDS: Metoprolol Succinate 50 MG Tab.ER PO SCH (08:15)
[2021-09-22] MEDS: Docusate Sodium 100 MG Cap PO SCH ×2 (08:15→19:39)
[2021-09-22] MEDS: Tamsulosin 0.4 MG Cap.ER PO SCH (08:15)
[2021-09-22] MEDS: Gabapentin 300 MG Cap PO SCH (08:16)
[2021-09-22] MEDS: Furosemide 20 MG Tab PO SCH ×2 (08:16→10:35)
[2021-09-22] MEDS: Omeprazole 20 MG Cap.CR PO SCH (08:16)
[2021-09-22] MEDS: Non-Formulary Medication 1 Each (Formoterol Fumarate [Formoterol Fumarate] 20 MCG/2 ML Via INH SCH ×2 (08:16→19:40)
[2021-09-22] MEDS: Nystatin Topical Powder 15 GM Bottle TOP SCH ×2 (08:17→19:40)
[2021-09-22] MEDS: Tiotropium Inhaler 18 MCG Inhalation Powder Cap Kit of 5 INH SCH (08:17)
[2021-09-22] MEDS: Acetaminophen 325 MG Tab PO PRN (18:23)
[2021-09-22] MEDS: Insulin Glargine,Human Rec. Analog 100 Units/ML 3 ML Pen SUBCUT SCH (19:37)
[2021-09-22] MEDS: atorvaSTATin 80 MG Tab PO SCH (19:39)
[2021-09-22] MEDS: Melatonin 10 MG Cap PO SCH (19:39)
[2021-09-23] MEDS: Famotidine 20 MG Tab PO SCH ×2 (08:28→20:34)
[2021-09-23] MEDS: Rivaroxaban 10 MG Tab PO SCH (08:28)
[2021-09-23] MEDS: FLUoxetine 20 MG Cap PO SCH (08:28)
[2021-09-23] MEDS: Metoclopramide 10 MG Tab PO SCH ×4 (08:28→20:34)
[2021-09-23] MEDS: Tamsulosin 0.4 MG Cap.ER PO SCH (08:29)
[2021-09-23] MEDS: Metoprolol Succinate 50 MG Tab.ER PO SCH (08:29)
[2021-09-23] MEDS: Potassium Chloride 20 MEQ Tab.ER PO SCH ×4 (08:29→20:34)
[2021-09-23] MEDS: Spironolactone 25 MG Tab PO SCH (08:30)
[2021-09-23] MEDS: Aspirin 81 MG Tab.EC PO SCH (08:30)
[2021-09-23] MEDS: Furosemide 20 MG Tab PO SCH ×2 (08:30→11:37)
[2021-09-23] MEDS: Gabapentin 300 MG Cap PO SCH (08:30)
[2021-09-23] MEDS: Docusate Sodium 100 MG Cap PO SCH ×2 (08:31→20:34)
[2021-09-23] MEDS: Omeprazole 20 MG Cap.CR PO SCH (08:31)
[2021-09-23] MEDS: Psyllium Husk Powder Sugar Free 5.85 GM Packet PO SCH (08:31)
[2021-09-23] MEDS: Non-Formulary Medication 1 Each (Formoterol Fumarate [Formoterol Fumarate] 20 MCG/2 ML Via INH SCH ×2 (08:32→20:30)
[2021-09-23] MEDS: Tiotropium Inhaler 18 MCG Inhalation Powder Cap Kit of 5 INH SCH (08:32)
[2021-09-23] MEDS: Non-Formulary Medication 1 Each (Liraglutide [Victoza] 18 MG/3 ML Pen) SQ SCH (08:32)
[2021-09-23] MEDS: Nystatin Topical Powder 15 GM Bottle TOP SCH ×2 (08:33→20:34)
[2021-09-23] MEDS: Acetaminophen 325 MG Tab PO PRN (19:03)
[2021-09-23] MEDS: Melatonin 10 MG Cap PO SCH (20:34)
[2021-09-23] MEDS: atorvaSTATin 80 MG Tab PO SCH (20:34)
[2021-09-23] MEDS: Insulin Glargine,Human Rec. Analog 100 Units/ML 3 ML Pen SUBCUT SCH (20:39)
[2021-09-24] MEDS: Psyllium Husk Powder Sugar Free 5.85 GM Packet PO SCH (07:33)
[2021-09-24] MEDS: Non-Formulary Medication 1 Each (Liraglutide [Victoza] 18 MG/3 ML Pen) SQ SCH (07:33)
[2021-09-24] MEDS: Tiotropium Inhaler 18 MCG Inhalation Powder Cap Kit of 5 INH SCH (07:34)
[2021-09-24] MEDS: Nystatin Topical Powder 15 GM Bottle TOP SCH ×2 (07:34→20:39)
[2021-09-24] MEDS: Metoclopramide 10 MG Tab PO SCH ×4 (07:36→20:40)
[2021-09-24] MEDS: Famotidine 20 MG Tab PO SCH ×2 (07:36→20:40)
[2021-09-24] MEDS: FLUoxetine 20 MG Cap PO SCH (07:36)
[2021-09-24] MEDS: Rivaroxaban 10 MG Tab PO SCH (07:37)
[2021-09-24] MEDS: Tamsulosin 0.4 MG Cap.ER PO SCH (07:37)
[2021-09-24] MEDS: Aspirin 81 MG Tab.EC PO SCH (07:37)
[2021-09-24] MEDS: Omeprazole 20 MG Cap.CR PO SCH (07:38)
[2021-09-24] MEDS: Potassium Chloride 20 MEQ Tab.ER PO SCH ×4 (07:38→20:40)
[2021-09-24] MEDS: Gabapentin 300 MG Cap PO SCH (07:38)
[2021-09-24] MEDS: Metoprolol Succinate 50 MG Tab.ER PO SCH (07:38)
[2021-09-24] MEDS: Non-Formulary Medication 1 Each (Formoterol Fumarate [Formoterol Fumarate] 20 MCG/2 ML Via INH SCH ×2 (07:39→19:34)
[2021-09-24] MEDS: Spironolactone 25 MG Tab PO SCH (07:40)
[2021-09-24] MEDS: Docusate Sodium 100 MG Cap PO SCH ×2 (07:40→20:40)
[2021-09-24] MEDS: Furosemide 20 MG Tab PO SCH ×2 (07:40→11:01)
[2021-09-24] MEDS: Acetaminophen 325 MG Tab PO PRN (11:02)
[2021-09-24] MEDS: atorvaSTATin 80 MG Tab PO SCH (20:40)
[2021-09-24] MEDS: Melatonin 10 MG Cap PO SCH (20:40)
[2021-09-24] MEDS: Insulin Glargine,Human Rec. Analog 100 Units/ML 3 ML Pen SUBCUT SCH (21:14)
[2021-09-25] MEDS: Gabapentin 300 MG Cap PO SCH (07:47)
[2021-09-25] MEDS: Aspirin 81 MG Tab.EC PO SCH (07:47)
[2021-09-25] MEDS: Famotidine 20 MG Tab PO SCH ×2 (07:48→19:29)
[2021-09-25] MEDS: Tamsulosin 0.4 MG Cap.ER PO SCH (07:48)
[2021-09-25] MEDS: Spironolactone 25 MG Tab PO SCH (07:48)
[2021-09-25] MEDS: Docusate Sodium 100 MG Cap PO SCH ×2 (07:48→19:28)
[2021-09-25] MEDS: Potassium Chloride 20 MEQ Tab.ER PO SCH ×4 (07:48→19:28)
[2021-09-25] MEDS: Metoclopramide 10 MG Tab PO SCH ×4 (07:48→19:29)
[2021-09-25] MEDS: Omeprazole 20 MG Cap.CR PO SCH (07:48)
[2021-09-25] MEDS: Furosemide 20 MG Tab PO SCH ×2 (07:48→11:03)
[2021-09-25] MEDS: Metolazone 5 MG Tab PO SCH (07:49)
[2021-09-25] MEDS: Rivaroxaban 10 MG Tab PO SCH (07:51)
[2021-09-25] MEDS: Non-Formulary Medication 1 Each (Liraglutide [Victoza] 18 MG/3 ML Pen) SQ SCH (07:52)
[2021-09-25] MEDS: Psyllium Husk Powder Sugar Free 5.85 GM Packet PO SCH (07:52)
[2021-09-25] MEDS: FLUoxetine 20 MG Cap PO SCH (07:52)
[2021-09-25] MEDS: Non-Formulary Medication 1 Each (Formoterol Fumarate [Formoterol Fumarate] 20 MCG/2 ML Via INH SCH ×2 (08:11→19:30)
[2021-09-25] MEDS: Tiotropium Inhaler 18 MCG Inhalation Powder Cap Kit of 5 INH SCH (08:15)
[2021-09-25] MEDS: Nystatin Topical Powder 15 GM Bottle TOP SCH ×2 (08:15→20:00)
[2021-09-25] MEDS: Metoprolol Succinate 50 MG Tab.ER PO SCH (08:16)
[2021-09-25] MEDS: atorvaSTATin 80 MG Tab PO SCH (19:29)
[2021-09-25] MEDS: Melatonin 10 MG Cap PO SCH (19:29)
[2021-09-25] MEDS: Insulin Glargine,Human Rec. Analog 100 Units/ML 3 ML Pen SUBCUT SCH (19:30)
[2021-09-26] MEDS: Metoprolol Succinate 50 MG Tab.ER PO SCH (07:39)
[2021-09-26] MEDS: FLUoxetine 20 MG Cap PO SCH (07:39)
[2021-09-26] MEDS: Omeprazole 20 MG Cap.CR PO SCH (07:40)
[2021-09-26] MEDS: Aspirin 81 MG Tab.EC PO SCH (07:40)
[2021-09-26] MEDS: Docusate Sodium 100 MG Cap PO SCH ×2 (07:40→20:13)
[2021-09-26] MEDS: Rivaroxaban 10 MG Tab PO SCH (07:40)
[2021-09-26] MEDS: Gabapentin 300 MG Cap PO SCH (07:42)
[2021-09-26] MEDS: Famotidine 20 MG Tab PO SCH ×2 (07:42→20:13)
[2021-09-26] MEDS: Metoclopramide 10 MG Tab PO SCH ×4 (07:43→20:13)
[2021-09-26] MEDS: Potassium Chloride 20 MEQ Tab.ER PO SCH ×4 (07:43→20:13)
[2021-09-26] MEDS: Tamsulosin 0.4 MG Cap.ER PO SCH (07:43)
[2021-09-26] MEDS: Furosemide 20 MG Tab PO SCH ×2 (07:43→10:55)
[2021-09-26] MEDS: Spironolactone 25 MG Tab PO SCH (07:43)
[2021-09-26] MEDS: Psyllium Husk Powder Sugar Free 5.85 GM Packet PO SCH (07:44)
[2021-09-26] MEDS: Non-Formulary Medication 1 Each (Formoterol Fumarate [Formoterol Fumarate] 20 MCG/2 ML Via INH SCH ×2 (07:44→20:14)
[2021-09-26] MEDS: Non-Formulary Medication 1 Each (Liraglutide [Victoza] 18 MG/3 ML Pen) SQ SCH (07:47)
[2021-09-26] MEDS: Nystatin Topical Powder 15 GM Bottle TOP SCH ×2 (07:47→20:21)
[2021-09-26] MEDS: Tiotropium Inhaler 18 MCG Inhalation Powder Cap Kit of 5 INH SCH (07:49)
[2021-09-26] MEDS: Melatonin 10 MG Cap PO SCH (20:13)
[2021-09-26] MEDS: atorvaSTATin 80 MG Tab PO SCH (20:13)
[2021-09-26] MEDS: Insulin Glargine,Human Rec. Analog 100 Units/ML 3 ML Pen SUBCUT SCH (20:17)
[2021-09-27] MEDS: Famotidine 20 MG Tab PO SCH (08:18)
[2021-09-27] MEDS: Rivaroxaban 10 MG Tab PO SCH (08:18)
[2021-09-27] MEDS: FLUoxetine 20 MG Cap PO SCH (08:18)
[2021-09-27] MEDS: Psyllium Husk Powder Sugar Free 5.85 GM Packet PO SCH (08:18)
[2021-09-27] MEDS: Potassium Chloride 20 MEQ Tab.ER PO SCH (08:19)
[2021-09-27] MEDS: Metoclopramide 10 MG Tab PO SCH (08:19)
[2021-09-27] MEDS: Metoprolol Succinate 50 MG Tab.ER PO SCH (08:19)
[2021-09-27] MEDS: Furosemide 20 MG Tab PO SCH (08:19)
[2021-09-27] MEDS: Docusate Sodium 100 MG Cap PO SCH (08:20)
[2021-09-27] MEDS: Spironolactone 25 MG Tab PO SCH (08:20)
[2021-09-27] MEDS: Gabapentin 300 MG Cap PO SCH (08:20)
[2021-09-27] MEDS: Aspirin 81 MG Tab.EC PO SCH (08:20)
[2021-09-27] MEDS: Tamsulosin 0.4 MG Cap.ER PO SCH (08:20)
[2021-09-27] MEDS: Omeprazole 20 MG Cap.CR PO SCH (08:20)
[2021-09-27] MEDS: Tiotropium Inhaler 18 MCG Inhalation Powder Cap Kit of 5 INH SCH (08:21)
[2021-09-27] MEDS: Non-Formulary Medication 1 Each (Formoterol Fumarate [Formoterol Fumarate] 20 MCG/2 ML Via INH SCH (08:22)
[2021-09-27] MEDS: Nystatin Topical Powder 15 GM Bottle TOP SCH (08:22)
[2021-09-27] MEDS: Non-Formulary Medication 1 Each (Liraglutide [Victoza] 18 MG/3 ML Pen) SQ SCH (08:22)
[2021-09-27 09:14] VITALS: BP 131/79; PULSE 80
== END 2021-09-27 09:58 | disposition home or self-care (01) | DRG 948 ==
LOC: LB.MS 14:06
PROVIDERS: ADMIT Physician Assistant; ATTEND Physician Assistant
DX: R53.1 Weakness (principal); E11.65 Type 2 diabetes mellitus with hyperglycemia; E87.6 Hypokalemia; I95.9 Hypotension, unspecified; H54.7 Unspecified visual loss; J44.9 Chronic obstructive pulmonary disease, unspecified; E66.9 Obesity, unspecified; E53.8 Deficiency of other specified B group vitamins; G47.30 Sleep apnea, unspecified; K59.09 Other constipation; K21.9 Gastro-esophageal reflux disease without esophagitis; M54.9 Dorsalgia, unspecified; G89.29 Other chronic pain; Z96.659 Presence of unspecified artificial knee joint; E86.0 Dehydration; Z88.8 Allergy status to other drugs, medicaments and biological substances; Z79.4 Long term (current) use of insulin; Z79.82 Long term (current) use of aspirin; Z79.899 Other long term (current) drug therapy; Z87.01 Personal history of pneumonia (recurrent); Z86.711 Personal history of pulmonary embolism; Z79.01 Long term (current) use of anticoagulants
CPT/HCPCS: 36415; 80048; 81001; 82947; 83735; 84132; 85025; 86580; 97110-GO; 97110-GP; 97116-GP; 97164-GP; 97165-GO; 97530-GP; 99305; 99307; 99315; A9270-GY; J1815-GY